=== PATIENT | female | born 1945 | race Caucasian/White ===

== ENCOUNTER 2020-08-27 09:51 | Outpatient (REF) | payer OTHER, SELFPAY ==
[2020-08-27 11:50] LABS: Anion Gap 11 (12-20); Blood Urea Nitrogen 27 mg/dL (9-16); Calcium 9.3 mg/dL (8.4-10.2); Carbon Dioxide 32 mmol/L (22-29); Chloride 103 mmol/L (96-108); Estimated Glomerular Filt Rate 42; Phosphorus 3.4 mg/dL (2.7-4.5); Potassium 5.3 mmol/l (3.3-5.1); Sodium 141 mmol/L (135-145)
[2020-08-27 11:54] LABS: Renal w Reflex Lab Use Only Order verified
== END 2020-08-27 09:52 | disposition home or self-care (01) ==
LOC: HO.LAB 09:51
PROVIDERS: PCP Family Medicine; Visit Provider Internal Medicine Nephrology
DX: I12.9 Hypertensive chronic kidney disease with stage 1 through stage 4 chronic kidney disease, or unspecified chronic kidney disease (principal); E11.22 Type 2 diabetes mellitus with diabetic chronic kidney disease; E11.29 Type 2 diabetes mellitus with other diabetic kidney complication; N18.30 Chronic kidney disease, stage 3 unspecified; D63.1 Anemia in chronic kidney disease; E78.5 Hyperlipidemia, unspecified
CPT/HCPCS: 80051; 82310; 82565; 84100; 84520

== ENCOUNTER 2020-09-05 13:40 | Outpatient (REF) | payer OTHER, SELFPAY ==
--- NOTE | 2020-09-05 | US_ITS ---
EXAMINATION: US VENOUS ULTRASOUND WITH DOPPLER LOWER EXTREMITY, LEFT CLINICAL INFORMATION: Left lower extremity pain and swelling. Assess for occult DVT COMPARISON: Bilateral leg venous ultrasound 08/14/2016 TECHNIQUE: Ultrasound of the deep veins is performed from the hip to the calf with compression sonography and color and pulse Doppler assessment. Spectral analysis with color-flow imaging is performed. FINDINGS: There is normal venous compression and respiratory variation and augmented flow. The visualized common femoral vein, superficial femoral vein, profunda femoral vein, popliteal vein, and the trifurcation region shows no evidence of deep venous thrombosis. No popliteal fossa cyst. There is a node left inguinal region with normal colleen architecture and short axis dimension only 0.9 cm. US/US venous duplex LE LT IMPRESSION: No DVT demonstrated in the left lower extremity.
== END 2020-09-05 13:41 | disposition home or self-care (01) ==
LOC: HO.HMGCX 13:40
PROVIDERS: PCP Family Medicine; Visit Provider Internal Medicine Nephrology
DX: E11.22 Type 2 diabetes mellitus with diabetic chronic kidney disease (principal); I12.9 Hypertensive chronic kidney disease with stage 1 through stage 4 chronic kidney disease, or unspecified chronic kidney disease; N18.30 Chronic kidney disease, stage 3 unspecified; D63.1 Anemia in chronic kidney disease; E11.29 Type 2 diabetes mellitus with other diabetic kidney complication; E87.5 Hyperkalemia; M79.605 Pain in left leg; M79.89 Other specified soft tissue disorders
CPT/HCPCS: 93971

== ENCOUNTER 2020-09-11 10:59 | Outpatient (REF) | payer OTHER, SELFPAY ==
--- NOTE | 2020-09-11 10:59 | CT_ITS ---
EXAMINATION: CT LUMBAR SPINE WITHOUT CONTRAST CLINICAL INFORMATION: Lumbago with sciatica. COMPARISON: None TECHNIQUE: 2 mm thin axial and reformatted 2 mm thin sagittal and coronal images of lumbar spine were obtained without contrast. This CT examination was performed using dose optimization techniques as appropriate, variously including the following: *Automated exposure control *Adjustment of mA and/or kV according to patient size (this includes techniques or standardized protocols for targeted exams where dose is matched to indication/reason for exam; i.e. extremities or head) *Use of iterative reconstruction technique DLP; 998 mGy-cm FINDINGS: On sagittal reconstructed images, the lumbar lordosis is maintained. There is loss of disc it virtually at every disc level with vacuum disc phenomena at L1-L2, L2-L3, L5-S1 disc levels with mild ventral spondylosis. At L1-L2 disc level, there is mild posterior spondylosis/bulge complex resulting in mild AP canal stenosis. The neural foramina are patent bilaterally. At L2-L3 disc level, there is posterior spondylosis/bulge complex with bilateral facet joint hypertrophy resulting in circumferential canal stenosis. There is mild bilateral narrowing of neural foramina. At L3-L4 disc level, there is mild posterior spondylosis without spinal stenosis. The neural foramina are mildly narrowed bilaterally from uncovertebral and facet joint hypertrophy. At L4-L5 disc level, there is severe loss of disc height with minimal disc bulge/spondylosis complex. There is partial right L5 laminectomy. There is bilateral L5-S1 facet joint arthropathy. Mild bilateral narrowing of neural foramina is noted. At L5-S1 disc level, there is a vacuum disc phenomena. There is minimal disc bulge without disc herniation or spinal canal stenosis. There is bilateral facet joint arthropathy with vacuum disc phenomena. There are endplate sclerosis seen at L2-L3 and L1-L2 disc levels. No lytic process seen. The paravertebral soft tissues are normal. CT/CT lumbar spine wo con IMPRESSION: Multilevel degenerative disc bulges and spondylosis with mild circumferential canal stenosis at L1-L2, L2-L3 and L5-S1 disc levels with mild canal stenosis. Mild spondylosis L3-L4 and L4-L5 disc levels without spinal canal stenosis. The neural foramina are narrowed bilaterally as described above. , There is no acute fracture seen.
== END 2020-09-11 11:00 | disposition home or self-care (01) ==
LOC: HO.CT 10:59
PROVIDERS: PCP Family Medicine; Visit Provider Family Medicine
DX: C54.1 Malignant neoplasm of endometrium (principal); M54.40 Lumbago with sciatica, unspecified side
CPT/HCPCS: 72131

== ENCOUNTER → 2020-10-29 09:51 | Outpatient (BNVA) | payer OTHER, SELFPAY | PROVIDERS: PCP Family Medicine; Referring Provider Family Medicine; Visit Provider Physician Assistant | DX: Z13.89 Encounter for screening for other disorder (principal) | CPT/HCPCS: Q3014 ==

== ENCOUNTER → 2021-06-14 13:57 | Outpatient (REF) | payer MEDICARE, SELFPAY ==
--- NOTE | 2021-06-14 14:03 | CA_ITS ---
Transthoracic Echocardiogram Patient (Last, First, Middle): Mary Fontenot, Gender: Female Date of : 1945 Age: 76 Procedure Date: 06/14/2021 Procedure Type: Transthoracic Echocardiogram Location: OP Height: 157.48 cm Weight: 100.7 kg BSA: 2.00 m2 Heart Rate: bpm BP: 124 / 70 mmHg Greenhouse Transplanter: Referring MD: Hazel Kilgore MD Symptoms: R06.02 SOB Study Quality: Fair ECG Rhythm: Sinus Findings Procedure Information Contrast agent, definity, is being given per protocol without apparent complications. Prior Study Comparison No prior study available for comparison. Measurements 2D Linear Measurements IVSd: 1.17 0.6-0.9/0.6-1.0 cm LVIDd: 3.80 3.9-5.3/4.2-5.9 cm LVIDd Index: 1.90 2.4-3.2/2.2-3.1 cm/m2 LVIDs: 2.42 2.0-3.6 cm LVPWd: 1.14 0.7-1.1 cm Ao Root: 2.80 2.1-3.5 cm LA Diam: 4.20 2.7-3.8/3.0-4.0 cm LAIDs Index: 2.10 1.5-2.3 cm/m2 LV Mass: 180.16 67-162/88-224 g LV Mass Index: 90.08 43-95/49-115 g/m2 LVOT Diam: 2.00 3.0+(-)1.3 cm Mitral Valve MV Pk E: 0.70 MV PK A: 0.94 MV Decel Time: 191.00 E/A: 0.70 E'Lateral: 9.25 E'Medial: 7.40 E/E' Med: 9.50 E/E' Lat: 7.60 PHT: 56.00 MVA PHT: 3.93 Decel [place]: 3.67 Aortic Valve AoV Pk Ford: 1.44 AoV Mn Ford: 0.92 AoV VTI: 0.35 AoV Pk Grad: 8.00 Aov Mn Grad: 4.00 ZAIRE Cont.VTI: 2.27 LVOT LVOT Pk Ford: 0.94 LVOT Mn Ford: 0.71 LVOT VTI: 0.25 LVOT Pk Grad: 4.00 LVOT Mn Grad: 2.00 LVOT Diam: 2.00 LVOT Area: 3.14 Diastolic Function MV Pk E: 0.70 MV Pk A: 0.94 E/A: 0.70 E'Medial: 7.40 E/E' Med: 9.50 E' Laterial: 9.25 E/E' Lat: 7.60 Tricuspid Valve TR Pk Ford: 2.02 TR Pk Grad: 16.00 RA Press: 3.00 RVSP: 19.00 Great Vessels Aorta Ao Root-2D: 2.80 2.0-3.7 cm Ao Asc: 3.20 2.1-3.4 cm Pulmonary Valve PV Pk Ford: 1.13 Peak PV Grad: 5.00 Updated in Other Vendor System with Status of Preliminary
== END ==
LOC: HO.CARD 13:57
PROVIDERS: Visit Provider Family Medicine
DX: R06.02 Shortness of breath (principal)
CPT/HCPCS: 93306; Q9957

== ENCOUNTER → 2021-07-16 08:36 | Outpatient (BNVA) | payer MEDICARE, SELFPAY | PROVIDERS: PCP Family Medicine; Referring Provider Family Medicine; Visit Provider Psychiatry & Neurology Neurology | DX: R06.83 Snoring (principal); G47.10 Hypersomnia, unspecified | CPT/HCPCS: 99202 ==

== ENCOUNTER → 2021-07-31 11:22 | Outpatient (REF) | payer MEDICARE, SELFPAY | LOC: HO.SL 11:22 | PROVIDERS: PCP Family Medicine; Visit Provider Psychiatry & Neurology Neurology | DX: Z13.89 Encounter for screening for other disorder (principal) ==

== ENCOUNTER 2021-08-02 14:42 | Outpatient (REF) | payer MEDICARE, SELFPAY ==
[2021-08-02 15:17] LABS: MANUAL DIFF FLAG NO
[2021-08-02 15:21] LABS: Basophils Percent Auto 0.1 % (0-2); Eosinophils Absolute Auto 0.2 X10*3/uL (0.0-0.4); Eosinophils Percent Auto 2.2 % (0-4); Hematocrit 35.9 % (37-47); Hemoglobin 10.4 g/dl (12.0-16.0); Imm Gran Abs Auto 0.03 X10*3/uL (0.00-0.03); Imm Gran Pct Auto 0.4 % (0.0-0.4); Lymphocytes Absolute Auto 1.7 X10*3/uL (1.2-4.9); Lymphocytes Percent Auto 22.8 % (20-40); Mean Corpuscular Hemoglobin 23.6 pg (27.0-33.0); Mean Corpuscular Volume 81.6 fL (80-98); Monocytes Absolute Auto 0.7 X10*3/uL (0.1-1.2); Monocytes Percent Auto 10.1 % (2-11); Neutrophils Absolute Auto 4.7 X10*3/uL (2.0-8.3); Neutrophils Percent Auto 64.4 % (45-73); Platelet Count 181 X10*3/uL (160-400); White Blood Count 7.3 X10*3/uL (4.8-10.8)
[2021-08-02 15:43] LABS: Albumin Level 3.9 g/dL (3.5-5.0); Anion Gap 13 (12-20); Blood Urea Nitrogen 37 mg/dL (9-16); Calcium 9.7 mg/dL (8.4-10.2); Carbon Dioxide 30 mmol/L (22-29); Chloride 102 mmol/L (96-108); Estimated Glomerular Filt Rate 39; Magnesium 1.5 mg/dL (1.6-2.6); Phosphorus 3.1 mg/dL (2.7-4.5); Potassium 5.2 mmol/L (3.3-5.1); Sodium 140 mmol/L (135-145)
[2021-08-02 15:49] LABS: Appearance Urine HAZY; Color Urine YELLOW; Glucose Urine UA 500 MG/DL (NEG); Leukocyte Esterase Urine 1+ (NEG); Nitrite Urine NEG (NEG); PH 5.5 (5.0-8.0); Specific Gravity - Urine <= 1.005 (1.005-1.025); Urine Blood 1+ (NEG); Urine Ketones NEG (NEG); Urine Protein NEG (NEG-TRACE)
[2021-08-02 16:02] LABS: Bacteria Urine 1+ /LPF; Squamous Epithelial Cell Urine 1+ /LPF
[2021-08-02 16:03] LABS: RBC Urine 0-2 /HPF (0)
[2021-08-02 16:04] LABS: Vitamin D 25-OH Total 43.2 ng/mL (>30)
[2021-08-02 16:10] LABS: Microalbum/Creatinine Ratio Ur 72.3 ug/mg cr
[2021-08-06 08:47] LABS: Calcium (PTHI) 9.8 mg/dL (8.6-10.4); PTHI 36 pg/mL (14-64)
== END 2021-08-02 14:43 | disposition home or self-care (01) ==
LOC: HO.LAB 14:42
PROVIDERS: PCP Family Medicine; Visit Provider Internal Medicine Nephrology
DX: N18.32 Chronic kidney disease, stage 3b (principal); D63.1 Anemia in chronic kidney disease; E11.21 Type 2 diabetes mellitus with diabetic nephropathy; E11.22 Type 2 diabetes mellitus with diabetic chronic kidney disease
CPT/HCPCS: 36415; 80051; 81001; 82040; 82043; 82306; 82310; 82565; 83735; 83970; 84100; 84520; 85025; 87086

== ENCOUNTER → 2021-08-14 09:58 | Outpatient (REF) | payer MEDICARE, SELFPAY | LOC: HO.SL 09:58 | PROVIDERS: PCP Family Medicine; Visit Provider Psychiatry & Neurology Neurology | DX: Z13.89 Encounter for screening for other disorder (principal) ==

== ENCOUNTER 2021-09-12 12:07 | Outpatient (REF) | payer MEDICARE, SELFPAY ==
--- NOTE | ~2021-09-12 | MM_ITS ---
EXAMINATION: MM SCREENING DIGITAL BREAST TOMOSYNTHESIS, BILATERAL CLINICAL INFORMATION: Screening. Asymptomatic. The lifetime risk of breast cancer based on the Tyrer-Cuzick Model is 1.8%. COMPARISON: Mammography: November 30, 2017 and studies dating back to February 22, 2010 TECHNIQUE: Digital breast tomosynthesis is performed in both the craniocaudal and mediolateral oblique views along with computer-aided detection (CAD). Synthesized 2D images are generated from the tomosynthesis. FINDINGS: The breasts are almost entirely fatty (ACR BI-RADS breast composition Category a). There are no significant masses, abnormal calcifications, or other abnormalities. MM/MM tomosynthesis screening BI IMPRESSION: There are no significant changes from prior study. ASSESSMENT: BI-RADS 1: Negative RECOMMENDATION: Routine annual mammography screening. This patient's information was entered into a reminder system with a target due date for their next mammogram.
== END 2021-09-12 12:08 | disposition home or self-care (01) ==
LOC: HO.MAMMO 12:07
PROVIDERS: Visit Provider Family Medicine
DX: Z12.31 Encounter for screening mammogram for malignant neoplasm of breast (principal)
CPT/HCPCS: 77063; 77067

== ENCOUNTER 2021-12-02 09:38 | Outpatient (REF) | payer MEDICARE, SELFPAY ==
[2021-12-02 10:00] LABS: MANUAL DIFF FLAG NO
[2021-12-02 10:21] LABS: Basophils Percent Auto 0.3 % (0-2); Eosinophils Absolute Auto 0.2 X10*3/uL (0.0-0.4); Eosinophils Percent Auto 3.2 % (0-4); Hematocrit 37.5 % (37.0-47.0); Hemoglobin 10.7 g/dl (12.0-16.0); Imm Gran Abs Auto 0.02 X10*3/uL (0.00-0.03); Imm Gran Pct Auto 0.3 % (0.0-0.4); Lymphocytes Absolute Auto 1.4 X10*3/uL (1.2-4.9); Lymphocytes Percent Auto 22.6 % (20-40); Mean Corpuscular HGB Conc 28.5 g/dl (31.0-35.0); Mean Corpuscular Hemoglobin 23.2 pg (27.0-33.0); Mean Corpuscular Volume 81.2 fL (80.0-98.0); Mean Platelet Volume 11.3 fL (9.4-12.3); Monocytes Absolute Auto 0.6 X10*3/uL (0.1-1.2); Monocytes Percent Auto 9.8 % (2-11); Neutrophils Absolute Auto 3.8 x10*3/uL (2.0-8.3); Neutrophils Percent Auto 63.8 % (45-73); Platelet Count 201 X10*3/uL (160-400); Red Blood Count 4.62 X10*6/uL (4.20-5.50); Red Cell Distribution Width 15.8 % (11.0-16.0)
[2021-12-02 10:39] LABS: Appearance Urine HAZY; Color Urine STRAW; Glucose Urine UA >=1000 MG/DL (NEG); Leukocyte Esterase Urine 1+ (NEG); Nitrite Urine NEG (NEG); Urine Blood 1+ (NEG); Urine Ketones NEG (NEG); Urine Protein NEG (NEG-TRACE)
[2021-12-02 11:07] LABS: Creatinine Urine 57.49 mg/dL; Microalbum/Creatinine Ratio Ur 41.7 ug/mg cr; Total Protein Urine Random < 7 mg/dL (<12)
[2021-12-02 11:10] LABS: Albumin Level 3.8 g/dL (3.5-5.0); Anion Gap 12 (12-20); Blood Urea Nitrogen 25 mg/dL (9-16); Calcium 10.2 mg/dL (8.4-10.2); Carbon Dioxide 32 mmol/L (22-29); Chloride 103 mmol/L (96-108); Estimated Glomerular Filt Rate 40; Iron 69 mcg/dL (30-160); Magnesium 2.1 mg/dL (1.6-2.6); Percent Iron Saturation 35 % (15-50); Potassium 5.1 mmol/L (3.3-5.1); Sodium 142 mmol/L (135-145); Total Iron Binding Capacity 195 mcg/dL (228-428); Unsaturated Iron Binding 126 ug/dL
[2021-12-02 11:18] LABS: Vitamin D 25-OH Total 37.4 ng/mL (>30)
[2021-12-02 11:54] LABS: WBC Urine 30-49 /HPF (0-4)
[2021-12-03 14:21] LABS: Calcium (PTHI) 9.8 mg/dL (8.6-10.4); PTHI 43 pg/mL (14-64)
== END 2021-12-02 09:39 | disposition home or self-care (01) ==
LOC: HO.LAB 09:38
PROVIDERS: PCP Family Medicine; Visit Provider Internal Medicine Nephrology
DX: N18.32 Chronic kidney disease, stage 3b (principal); D63.1 Anemia in chronic kidney disease; N25.0 Renal osteodystrophy; E11.21 Type 2 diabetes mellitus with diabetic nephropathy; E87.5 Hyperkalemia
CPT/HCPCS: 36415; 80051; 81001; 81003; 82040; 82043; 82306; 82310; 82565; 83540; 83735; 83970; 84156; 84520; 85025; 87086

== ENCOUNTER → 2022-02-25 19:30 | Outpatient (REF) | payer OTHER, SELFPAY | LOC: HO.SL 19:30 | PROVIDERS: Visit Provider Psychiatry & Neurology Neurology | DX: G47.10 Hypersomnia, unspecified (principal) | CPT/HCPCS: 95810 ==

== ENCOUNTER → 2022-03-04 09:31 | Outpatient (BNVA) | payer MEDICARE, SELFPAY | PROVIDERS: PCP Family Medicine; Referring Provider Family Medicine; Visit Provider Psychiatry & Neurology Neurology | DX: G47.33 Obstructive sleep apnea (adult) (pediatric) (principal); R06.83 Snoring | CPT/HCPCS: 99212 ==

== ENCOUNTER → 2022-05-13 10:55 | Outpatient (BNVA) | payer MEDICARE, SELFPAY | PROVIDERS: PCP Family Medicine; Visit Provider Nurse Practitioner Family | DX: G47.33 Obstructive sleep apnea (adult) (pediatric) (principal); R06.83 Snoring; G47.10 Hypersomnia, unspecified | CPT/HCPCS: 99211 ==

== ENCOUNTER 2022-05-22 11:00 | Outpatient (RCR) | payer MEDICARE, SELFPAY ==
--- NOTE | 2022-04-22 11:47 | MHC.PT.EP ---
[facility] [place] Office [place] Office [place] Office [address] [phone] F: [phone] F: [phone] F: [phone] F: [phone] Physical Therapy Plan of Care Date of Evaluation: Date of Surgery: n/a Diagnosis: Peripheral neuropathy Gait and LE strengthening Assessment: Pt is a pleasant 76yo F who presents to PT with diagnosis of peripheral neuropathy. Pts goals are to improve her LE strength, balance and gait. Pt presents today with current impairments in pain, decreased LE strength, impaired gait, decreased balance. She is limited functionally by prolonged standing, walking on even/uneven surfaces, and stair navigation. She is a good candidate for skilled PT in order to address current impairments, maximize function, and to decrease risk of falls. She will be seen 2x/week for 4 weeks and will be reassessed at that time. Frequency and Duration: The patient will be seen 2x/week for 4 weeks Short Term Goals: Pt will be I with HEP to promote self management of symptoms Pt will improve B quad strength by 1/2 grade B Pet House Sitter Goals: Pt will tolerate ambulation on even and uneven surfaces with LRAD > 20 min Pt will tolerate prolonged standing > 20 min to assist with household tasks Treatment Plan: Modalities to reduce pain, spasms and effusion. Manual therapy to restore motion and function. Therapeutic exercise to improve strength and flexibility. Neuromuscular re-education for posture and balance. Therapeutic activities to return to functional activities of daily living. Electronically signed by: Trisha Eugene, PT, DPT Please sign and return to therapist. Thank you for your referral.
--- NOTE | 2022-05-22 13:41 | MHC.PT.DC ---
[facility] [place] Office [place] Office [place] Office [address]an Russell [address] [phone] F: [phone] F: [phone] F: [phone] F: [phone] Physical Therapy Discharge Report Diagnosis: Peripheral neuropathy Gait and LE strengthening Date of Surgery: n/a Date of Evaluation: 04/22/22 Date of Discharge: 05/22/22 Treatments to Date: 8 Cancellations to Date: No Shows to Date: Discharge Status: Achieved Goals Improved Function Independent with HEP Discharge Summary: Pt has made good progress since SOC. She has improved her LE strength and endurance. She has met her STGs and made good progress toward her LTGs. She reports she is able to walk throughout grocery store with cart where she previously was using a scooter. She continues to be limited with prolonged standing 2* chronic low back pain. Pt is I with HEP. Pt is being D/C from skilled PT. Provided pt with printed, updated copy of HEP and RTB and pt verbalized understanding. Pt reports no further questions or concerns for PT at this time. Electronically signed by: Trisha Eugene, PT, DPT Please sign and return to therapist. Thank you for your referral.
== END 2022-05-22 13:41 | disposition home or self-care (01) ==
LOC: HO.PT 11:00
PROVIDERS: PCP Family Medicine; Visit Provider Psychiatry & Neurology Neurology
DX: G62.9 Polyneuropathy, unspecified (principal)
CPT/HCPCS: 97110; 97112; 97162; 97530

== ENCOUNTER 2022-08-29 10:12 | Outpatient (REF) | payer MEDICARE, SELFPAY ==
[2022-08-29 10:36] LABS: MANUAL DIFF FLAG NO
[2022-08-29 11:43] LABS: Basophils Percent Auto 0.2 % (0-2); Eosinophils Absolute Auto 0.2 X10*3/uL (0.0-0.4); Eosinophils Percent Auto 2.9 % (0-4); Hematocrit 39.5 % (37.0-47.0); Hemoglobin 11.5 g/dl (12.0-16.0); Imm Gran Abs Auto 0.02 X10*3/uL (0.00-0.03); Imm Gran Pct Auto 0.3 % (0.0-0.4); Lymphocytes Absolute Auto 1.3 X10*3/uL (1.2-4.9); Lymphocytes Percent Auto 22.3 % (20-40); Mean Corpuscular HGB Conc 29.1 g/dl (31.0-35.0); Mean Corpuscular Volume 78.8 fL (80.0-98.0); Mean Platelet Volume 11.1 fL (9.4-12.3); Monocytes Absolute Auto 0.6 X10*3/uL (0.1-1.2); Neutrophils Absolute Auto 3.8 x10*3/uL (2.0-8.3); Neutrophils Percent Auto 64.3 % (45-73); Platelet Count 166 X10*3/uL (160-400); Red Blood Count 5.01 X10*6/uL (4.20-5.50); Red Cell Distribution Width 15.3 % (11.0-16.0); White Blood Count 5.9 X10*3/uL (4.8-10.8)
[2022-08-29 11:55] LABS: Appearance Urine Clear; Color Urine Yellow; Glucose Urine UA >=1000 mg/dL (Negative); Leukocyte Esterase Urine Negative (Negative); Nitrite Urine Negative (Negative); Specific Gravity - Urine 1.025 (1.005-1.025); UMIC TRIGGER UA YES; Urine Blood Negative (Negative); Urine Ketones Negative (Negative); Urine Protein Negative (Neg-Trace)
[2022-08-29 12:02] LABS: Bacteria Urine None Seen (None Seen); Hyaline Casts Urine 0-2 /LPF (0-2)
[2022-08-29 12:31] LABS: Albumin Level 3.8 g/dL (3.5-5.0); Anion Gap 16 (12-20); Blood Urea Nitrogen 24 mg/dL (9-16); Calcium 9.8 mg/dL (8.4-10.2); Carbon Dioxide 30 mmol/L (22-29); Chloride 101 mmol/L (96-108); Estimated Glomerular Filt Rate 44; Magnesium 2.1 mg/dL (1.6-2.6); Phosphorus 3.9 mg/dL (2.7-4.5); Potassium 5.3 mmol/L (3.3-5.1); Sodium 142 mmol/L (135-145); Vitamin D 25-OH Total 39.8 ng/mL (>30)
[2022-08-29 12:42] LABS: Creatinine Urine 65.92 mg/dL; Microalbum/Creatinine Ratio Ur 12.1 ug/mg cr; Total Protein Urine Random < 7 mg/dL (<12)
[2022-08-31 13:07] LABS: Calcium (PTHI) 9.7 mg/dL (8.6-10.4); PTHI 49 pg/mL (16-77)
== END 2022-08-29 10:13 | disposition home or self-care (01) ==
LOC: HO.LAB 10:12
PROVIDERS: PCP Family Medicine; Visit Provider Internal Medicine Nephrology
DX: E11.21 Type 2 diabetes mellitus with diabetic nephropathy (principal); E11.22 Type 2 diabetes mellitus with diabetic chronic kidney disease; N25.0 Renal osteodystrophy; I12.9 Hypertensive chronic kidney disease with stage 1 through stage 4 chronic kidney disease, or unspecified chronic kidney disease; N18.32 Chronic kidney disease, stage 3b
CPT/HCPCS: 36415; 80051; 81001; 82040; 82043; 82306; 82310; 82565; 83735; 83970; 84100; 84156; 84520; 85025; 87086

== ENCOUNTER 2022-09-18 11:45 | Outpatient (REF) | payer MEDICARE, SELFPAY ==
--- NOTE | ~2022-09-18 | MM_ITS ---
EXAMINATION: MM SCREENING DIGITAL BREAST TOMOSYNTHESIS, BILATERAL CLINICAL INFORMATION: Screening. Asymptomatic. COMPARISON: Mammography: September 12, 2021 and studies dating back to April 17, 2014 TECHNIQUE: Digital breast tomosynthesis is performed in both the craniocaudal and mediolateral oblique views along with computer-aided detection (CAD). Synthesized 2D images are generated from the tomosynthesis. FINDINGS: The breasts are almost entirely fatty (ACR BI-RADS breast composition Category a). There are no significant masses, abnormal calcifications, or other abnormalities. MM/MM tomosynthesis screening BI IMPRESSION: No significant changes from prior exam. ASSESSMENT: BI-RADS 1: Negative RECOMMENDATION: Routine annual mammography screening. This patient's information was entered into a reminder system with a target due date for their next mammogram.
== END 2022-09-18 11:46 | disposition home or self-care (01) ==
LOC: HO.MAMMO 11:45
PROVIDERS: PCP Family Medicine; Visit Provider Family Medicine
DX: Z12.31 Encounter for screening mammogram for malignant neoplasm of breast (principal)
CPT/HCPCS: 77063; 77067

== ENCOUNTER 2023-05-14 09:56 | Outpatient (REF) | payer MEDICARE, SELFPAY | END 2023-05-14 09:57 | disposition home or self-care (01) | LOC: HO.LAB 09:56 | PROVIDERS: PCP Family Medicine; Visit Provider Internal Medicine Nephrology | DX: I12.9 Hypertensive chronic kidney disease with stage 1 through stage 4 chronic kidney disease, or unspecified chronic kidney disease (principal); E11.22 Type 2 diabetes mellitus with diabetic chronic kidney disease; N18.32 Chronic kidney disease, stage 3b; E11.21 Type 2 diabetes mellitus with diabetic nephropathy; N25.0 Renal osteodystrophy; R82.90 Unspecified abnormal findings in urine | CPT/HCPCS: 36415; 80051; 81001; 82040; 82043; 82306; 82310; 82565; 83735; 83970; 84100; 84156; 84520; 85025; 87086 ==

== ENCOUNTER 2023-06-02 10:49 | Outpatient (AMB) | payer MEDICARE, SELFPAY ==
--- NOTE | 2023-06-02 10:53 | A.OFFVIS_ITS ---
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 Patient reports ongoing numbness for many year and its gotten worse in the past year. She states her attending psychiatrist is weak and doesn't have a lot of strength to lift a coffee cup. Patient reports having stiffness in her fingers. 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 The patient reports ongoing numbness for many years, which has increased in the last year. She states her attending psychiatrist is weak. She claims she does not have the strength to lift a coffee cup. She confirms stiffness in the digits. She applies ice to the hand to help with stiffness. She confirms numbness in the bilateral thumb, index, and middle digits. Patient reports Dr. Noe had an EMG performed. She states she was told she has carpal tunnel syndrome, bilateral, with the right worse then the left. [facility] Medical History Asthma Chronic anemia Dyslipidemia Eye disorder HTN (hypertension) Family History Father No problems noted. Mother No problems noted. Social History (Updated 06/02/23 @ 11:03 by Davey Fontenot) Household Members: Family Alcohol intake: never Patient Tobacco Use Status: Former Tobacco user Current occupational status: retired Current occupation: right hand dominant Review of Systems Const All systems reviewed & are unremarkable except as noted in HPI and below Physical Exam Vital Signs: BMI result Body Mass Index 35.8 Const General: cooperative, healthy appearing, comfortable, no acute distress, well developed and alert Orientation/consciousness: patient oriented x3 HEENT Head: Yes normal to inspection, Yes normocephalic and Yes atraumatic Eyes General: appearance normal, both eyes and all related structures Resp Effort & Inspection: normal respiratory effort and able to speak in complete sentences Cardio Rate: regular rate Peripheral pulses: Peripheral pulses 2+ throughout GI Palpation (GI): Soft to palpation Skin Lesions: no lesions Rashes: no rashes Neuro General: patient oriented x3 Extrem Other: Left hand: Normal to inspection. No ecchymosis, erythema, or edema. Able to perform full finger flexion, extension, abduction, adduction, finger cross, okay sign, and thumbs up without deficit. Able to make a closed fist. Numbness and tingling in the left thumb, index, and middle digits. Capillary refill is brisk. Radial pulse intact. Right hand: Normal to inspection. No ecchymosis, erythema, or edema. Able to perform full finger flexion, extension, abduction, adduction and thumbs up without deficit. Finger cross and okay signs on the right with difficulty. Okay sign is flat. Able to make a closed fist. Numbness and tingling in the left thumb, index, and middle digits. Capillary refill is brisk. Radial pulse intact. Assessment & Plan Assessment & Plan (1) Left carpal tunnel syndrome: Code(s): G56.02 - Carpal tunnel syndrome, left upper limb (2) Right carpal tunnel syndrome: Code(s): G56.01 - Carpal tunnel syndrome, right upper limb Plan Ms. Fontenot is an 78-year-old right hand dominant female who presents in the office today, as a new patient, for an evaluation of bilateral hand pain. The patient reports ongoing numbness for many years, which has increased in the last year. She states her attending psychiatrist is weak. She claims she does not have the strength to lift a coffee cup. She confirms stiffness in the digits. She applies ice to the hand to help with stiffness. She confirms numbness in the bilateral thumb, index, and middle digits. Patient reports Dr. Noe had an EMG performed. She states she was told she has carpal tunnel syndrome, bilateral, with the right worse then the left. I discussed the role of surgical intervention of a right hand carpal tunnel release. The office will work to obtain the results of the EMG study from Dr. Noe?s office. Follow up will be with Dr. Doherty for further evaluation and treatment, or sooner if needed Patient Instructions: Scribed for Natalia Troy PA-C by colton Ngo scribe, on 06/02/2023 at 10:51 am, EST. Your attestation Coding Level of Care Code New Pt Level 4 (58760) Diagnoses Left carpal tunnel syndrome G56.02 Right carpal tunnel syndrome G56.01
[2023-06-02 10:59] VITALS: BMI 35.8
== END 2023-06-02 11:44 | disposition home or self-care (01) ==
PROVIDERS: PCP Family Medicine; Visit Provider Physician Assistant
DX: G56.02 Carpal tunnel syndrome, left upper limb (principal); G56.01 Carpal tunnel syndrome, right upper limb
CPT/HCPCS: 99203

== ENCOUNTER → 2023-06-02 10:49 | Outpatient (BNVA) | payer MEDICARE, SELFPAY | PROVIDERS: PCP Family Medicine; Visit Provider Physician Assistant ==

== ENCOUNTER 2023-06-10 10:29 | Outpatient (REF) | payer MEDICARE, SELFPAY ==
[2023-06-10 13:53] LABS: Alanine Aminotransferase 25 U/L (0-31); Albumin Level 3.8 g/dL (3.5-5.0); Alkaline Phosphatase 63 U/L (39-117); Amylase 49 U/L (28-100); Anion Gap 15 (12-20); Aspartate Amino Transferase 19 U/L (5-31); Bilirubin Total 0.3 mg/dL (0.0-1.0); Blood Urea Nitrogen 20 mg/dL (9-16); C Reactive Protein 0.76 mg/dL (< or = 0.50); Calcium 10.3 mg/dL (8.4-10.2); Carbon Dioxide 27 mmol/L (22-29); Chloride 104 mmol/L (96-108); Estimated Glomerular Filt Rate 48; Glucose Random 174 mg/dL (60-115); Lipase 7 U/L (8-78); Potassium 4.4 mmol/L (3.3-5.1); Sodium 142 mmol/L (135-145); Total Protein 6.9 g/dL (6.5-8.0)
== END 2023-06-10 10:30 | disposition home or self-care (01) ==
LOC: HO.HHCL 10:29
PROVIDERS: Visit Provider Emergency Medicine
DX: R19.7 Diarrhea, unspecified (principal)
CPT/HCPCS: 36415; 80053; 82150; 83690; 86140

== ENCOUNTER 2023-06-15 18:00 | Outpatient (REF) | payer MEDICARE, SELFPAY ==
[2023-06-16 13:11] LABS: Adenovirus F 40/41 Not Detected (Not Detect.); Astrovirus Not Detected (Not Detect.); Campylobacter Not Detected (Not Detect.); Cryptosporidium Not Detected (Not Detect.); Cyclospora cayetanensis Not Detected (Not Detect.); E. coli EAEC Not Detected (Not Detect.); E. coli EPEC Not Detected (Not Detect.); E. coli ETEC Not Detected (Not Detect.); E. coli STEC Not Detected (Not Detect.); Entamoeba histolytica Not Detected (Not Detect.); Giardia lamblia Not Detected (Not Detect.); Norovirus GI/GII Not Detected (Not Detect.); Plesiomonas shigelloides Not Detected (Not Detect.); Rotavirus A Not Detected (Not Detect.); Salmonella Not Detected (Not Detect.); Sapovirus Not Detected (Not Detect.); Shigella sp./EIEC Not Detected (Not Detect.); Vibrio Not Detected (Not Detect.); Vibrio Cholerae Not Detected (Not Detect.); Yersinia enterocolitica Not Detected (Not Detect.)
== END 2023-06-15 18:01 | disposition home or self-care (01) ==
LOC: HO.HHCLNP 18:00
PROVIDERS: Visit Provider Emergency Medicine
DX: R19.7 Diarrhea, unspecified (principal)
CPT/HCPCS: 87177; 87209; 87507

== ENCOUNTER 2023-07-07 08:39 | Outpatient (AMB) | payer MEDICARE, SELFPAY ==
[2023-07-07 08:54] VITALS: BMI 35.8
--- NOTE | 2023-07-07 08:54 | A.OFFVIS_ITS ---
Intake Vital Signs 07/07/23 08:54 Height 5 ft 2 in Weight 196 lb BMI 35.8 Intake Visit Reasons: OV- Pre op consult -B/L CTS Intake Note: Mary 78 yr old right hand dominant female presents today for her EMG review and to discuss surgery options. Last seen with Barry Troy on 06/02/23. Patient would like to move forward with surgery on her right hand first. Allergies No Known Allergies Allergy (Mild, Verified 07/07/23 08:56) NONE HPI OV- Pre op consult -B/L CTS HPI Details Mary is an 78 year old right hand dominant woman who presents for a NCS review of her bilateral hand numbness. She is seen today with her daughter. She complains of numbness in the median nerve distribution bilaterally, R>L. She has had numbness for many years but this has worsened in the last year. 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 She denies any small finger numbness. [facility] Medical History Asthma Chronic anemia Dyslipidemia Eye disorder HTN (hypertension) Family History Father No problems noted. Mother No problems noted. Social History Household Members: Family Alcohol intake: never Patient Tobacco Use Status: Former Tobacco user Current occupational status: retired Current occupation: right hand dominant Review of Systems Const All systems reviewed & are unremarkable except as noted in HPI and below Physical Exam Vital Signs: BMI result Body Mass Index 35.8 Const General: no acute distress and alert Orientation/consciousness: patient oriented x3 Neuro General: patient oriented x3 Extrem Other: Evaluation of Bilateral Upper Extremity: The patient is alert, oriented, and in no acute distress Neuro: Dense numbness in the median nerve distribution of the right hand, normal sensation in the median nerve distribution of the left hand today. Normal sensation in the ulnar nerve distribution bilaterally With thenar atrophy and no APB muscle belly firing on the right No thenar wasting and good APB muscle belly firing on the left Good finger cross bilaterally Vascular: Cap refill brisk ROM: She can make a fist and extend all her digits Nerve Conduction Study: Impression: Severe end stage right carpal tunnel Moderately severe left carpal tunnel Study unchanges compared to previous NCS from 2019 Normal EMG of the right C-T1 muscles except for APB muscles with no activity Please see report for additional information Dr. Fam 04/21/23 Psych Appearance: grossly normal Affect: normal affect Attitude: cooperative Assessment & Plan Assessment & Plan (1) Right carpal tunnel syndrome: Code(s): G56.01 - Carpal tunnel syndrome, right upper limb (2) Left carpal tunnel syndrome: Code(s): G56.02 - Carpal tunnel syndrome, left upper limb Plan Assessment & Plan: 1. Right Carpal tunnel syndrome, severe end-stage With dense numbness, thenar atrophy, and no APB muscle belly firing 2. Left Carpal tunnel syndrome, moderate-severe Symptoms intermittent, but daily, worse at night I educated her about this condition I discussed operative and non-operative treatment options I am recommending surgery for both hands The patient would like to proceed with surgery, beginning with her left hand She will follow up to discuss treatment for her right hand when she has recovered from surgery The risks and benefits of operative treatment were discussed with the patient and the patient wishes to proceed with surgery. These risks include, but are not limited to risk of damage to blood vessels, nerves, tendons, infection, recurrence, incomplete relief of preoperative symptoms, persistent pain, possible need for further surgery and the risks associated with regional blocks and anesthesia. The plan is to take the patient to the operating room sometime in the next few weeks for the following procedures: 1. Left carpal tunnel release, under local All of the preoperative paperwork including the consent was filled out today. All the patient's questions were answered. The patient understands that they will be contacted by our powder mill operator soon to schedule this procedure She denies blood thinners, asthma, heart, lung, kidney issues She is a Diabetic, her most recent HgA1c was 8.0% Scribed for Irma Doherty MD by Wayne Holland, medical claims representative, on 07/07/23 at 9:10 AM, EST. Coding Level of Care Code New Pt Level 4 (93536) Diagnoses Right carpal tunnel syndrome G56.01 Left carpal tunnel syndrome G56.02
== END 2023-07-07 09:17 | disposition home or self-care (01) ==
PROVIDERS: PCP Family Medicine; Visit Provider Orthopaedic Surgery
DX: G56.01 Carpal tunnel syndrome, right upper limb (principal); G56.02 Carpal tunnel syndrome, left upper limb
CPT/HCPCS: 99214

== ENCOUNTER → 2023-07-07 08:39 | Outpatient (BNVA) | payer MEDICARE, SELFPAY | PROVIDERS: PCP Family Medicine; Visit Provider Orthopaedic Surgery ==

== ENCOUNTER 2023-08-13 08:14 | Outpatient (REF) | payer MEDICARE, SELFPAY | END 2023-08-13 08:15 | disposition home or self-care (01) | LOC: HO.HHCL 08:14 | PROVIDERS: Visit Provider Family Medicine | DX: E11.69 Type 2 diabetes mellitus with other specified complication (principal); Z79.4 Long term (current) use of insulin | CPT/HCPCS: 36415; 80048; 80061; 80076; 82043; 82570 ==

== ENCOUNTER 2023-10-15 10:24 | Outpatient (REF) | payer MEDICARE, SELFPAY ==
--- NOTE | ~2023-10-15 | MM_ITS ---
EXAMINATION: BONE DENSITOMETRY CLINICAL INDICATION: Osteopenia of unspecified location. COMPARISON: Previous BD dated 04/24/2015 and baseline BD dated 11/13/2006. TECHNIQUE: Using a [employer] DXA System (software version: 13.1) manufactured by [employer], dual-energy x-ray absorptiometry was performed of the lumbar spine and left hip. The images are of good technical quality. Summary results are attached. FINDINGS: LEFT FEMUR, NECK: Current: BMD 1.107 g/cm2, Z-score 2.1, T-score 0.5, normal. Prior: BMD 1.199 g/cm2. Baseline: BMD 1.199 g/cm2. LEFT FEMUR, TOTAL: Current: BMD 1.283 g/cm2, Z-score 3.6, T-score 2.2, normal, 1.5% decrease from previous, 1.5% decrease from baseline (<5% change is not significant). Prior: BMD 1.303 g/cm2. Baseline: BMD 1.303 g/cm2. AP SPINE L1-L4 (excluding L3): The data of L1-L4 has been changed to exclude the L3 vertebral body, because degenerative sclerosis at this level may cause overestimation of lumbar spine density. Current: BMD 1.670 g/cm2, Z-score 5.2, T-score 4.2, normal, 5.2% increase from previous, 26.3% increase from baseline (<5% change is not significant). Prior: BMD 1.588 g/cm2. Baseline: BMD 1.322 g/cm2. IDENTIFIED RISK FACTORS: Kidney disease, anticonvulsant, menopause, hysterectomy, bilateral oophorectomy. HISTORY OF FRACTURE: None listed. MEDICATIONS: Calcium supplements or multivitamin, vitamin D. MM/XR DEXA axial skeleton IMPRESSION: 1. DIAGNOSIS: Normal bone density based on the lowest T-score value of 0.5 in the femoral neck applying World Health Organization criteria. 2. 10-YEAR FRACTURE RISK PREDICTION, FRAX: According to the guidelines, FRAX calculation should only be performed on patients in the osteopenia bone density category. Therefore, FRAX was not performed on this patient. 3. Treatment Recommendations: NOF guidelines recommend consideration for treatment in postmenopausal women and men age 50 and older presenting with the following: -A hip or vertebral (clinical or morphometric) fracture. -T-score less than or equal to -2.5 at the femoral neck or spine after appropriate evaluation to exclude secondary causes. -Low bone mass at the hip or spine and a 10-year fracture probability by FRAX of greater than or equal to 3% for hip fracture or greater than or equal to 20% for major osteoporotic fracture based on the [place] adapted WHO algorithm. 4. Other Recommendations: All treatment decisions require clinical judgment and consideration of individual patient factors, including patient preferences, comorbidities, previous drug use, risk factors not captured in the FRAX model (e.g. frailty, falls, vitamin D deficiency, increased bone turnover, interval significant decline in bone density) and possible under or overestimation of fracture risk by FRAX. FUTURE SCAN RECOMMENDATION: People with diagnosed cases of osteoporosis or at high risk for fracture should have regular bone mineral density tests. For patients eligible for Medicare, routine testing is allowed once every 2 years. The testing frequency can be increased to one year for patients who have rapidly progressing disease, those who are receiving or discontinuing medical therapy to restore bone mass, or have additional risk factors.
--- NOTE | ~2023-10-15 | MM_ITS ---
EXAMINATION: MM SCREENING DIGITAL BREAST TOMOSYNTHESIS, BILATERAL CLINICAL INFORMATION: Screening. Asymptomatic. COMPARISON: Mammography: 09/18/2022, 09/12/2021, and studies dating back to April 17, 2014 TECHNIQUE: Digital breast tomosynthesis is performed in both the craniocaudal and mediolateral oblique views along with computer-aided detection (CAD). Synthesized 2D images are generated from the tomosynthesis. FINDINGS: The breasts are almost entirely fatty (ACR BI-RADS breast composition Category a). There are vascular calcifications bilaterally. There are no suspicious masses, suspicious grouped calcifications, or areas of architectural distortion in either breast. The parenchymal pattern is stable from prior exams. No skin or axillary changes. MM/MM tomosynthesis screening BI IMPRESSION: No mammographic evidence of malignancy. ASSESSMENT: BI-RADS BI-RADS 2 - Benign Findings RECOMMENDATION: Routine annual mammography screening. 1 year F/U This examination should not preclude the clinical evaluation of a suspicious palpable abnormality. This patient's information was entered into a reminder system with a target due date for their next mammogram.
== END 2023-10-15 10:25 | disposition home or self-care (01) ==
LOC: HO.MAMMO 10:24
PROVIDERS: PCP Family Medicine; Visit Provider Family Medicine
DX: Z12.31 Encounter for screening mammogram for malignant neoplasm of breast (principal); Z13.820 Encounter for screening for osteoporosis; M85.80 Other specified disorders of bone density and structure, unspecified site; Z78.0 Asymptomatic menopausal state
CPT/HCPCS: 77063; 77067; 77080

== ENCOUNTER → 2023-10-15 11:00 | Outpatient (BNV) | payer MEDICARE, SELFPAY | PROVIDERS: PCP Family Medicine; Visit Provider Radiology Diagnostic Radiology | DX: Z12.31 Encounter for screening mammogram for malignant neoplasm of breast (principal) | CPT/HCPCS: 77063; 77067 ==

== ENCOUNTER 2024-02-15 10:41 | Emergency (ER) | payer MEDICARE, SELFPAY ==
--- NOTE | ~2024-02-15 | XR_ITS ---
EXAMINATION: XR KNEE, RIGHT XR KNEE, LEFT XR HAND, RIGHT XR HAND, LEFT CLINICAL INDICATION: Fall, pain in bilateral knees and hands. TECHNIQUE: 4 views of each knee. 3 views of each hand. COMPARISON: None available. FINDINGS: RIGHT KNEE: The bones are diffusely demineralized. Extensive chondrocalcinosis in the medial and lateral compartments. Calcifications in the adjacent soft tissues are vascular. Moderate medial compartment space narrowing and medial marginal osteophytes. Tiny posterior patellar osteophytes. LEFT KNEE: The bones are diffusely demineralized. Abundant chondrocalcinosis in the medial and lateral compartments. Moderate narrowing of the medial compartment. Tiny tricompartmental osteophytes. No significant joint effusion. Extensive vascular calcifications. RIGHT HAND: The bones are diffusely demineralized. Extensive vascular calcifications. Moderate degenerative changes in the first carpometacarpal joint with joint space narrowing and hypertrophic change. Ulnar minus variance. Amorphous calcifications in the soft tissues predominantly along the radial aspects of the metacarpophalangeal joints characteristic of chondrocalcinosis. A few tiny calcifications are scattered in the soft tissues of various digits. Mild degenerative changes in scattered interphalangeal joints. LEFT HAND: The bones are diffusely demineralized. Vascular calcifications. Moderate degenerative changes in the first carpometacarpal joint with joint space narrowing and hypertrophic change. Ulnar minus variance. A few amorphous calcifications are identified adjacent to metacarpophalangeal joints, most notable adjacent to the first, second and third joints. A few tiny calcifications are scattered in the soft tissues of various digits. XR/XR hand LT min 3V IMPRESSION: 1. Extensive chondrocalcinosis in the knees. 2. Moderate degenerative changes bilateral knees. 3. Moderate degenerative changes bilateral first carpometacarpal joints. 4. Chondrocalcinosis in the hands. 5. Extensive vascular calcifications. 6. This study was presented today February 15, 2024 for interpretation. Stat results provided at this time as requested by referring provider.
--- NOTE | ~2024-02-15 | XR_ITS ---
EXAMINATION: XR KNEE, RIGHT XR KNEE, LEFT XR HAND, RIGHT XR HAND, LEFT CLINICAL INDICATION: Fall, pain in bilateral knees and hands. TECHNIQUE: 4 views of each knee. 3 views of each hand. COMPARISON: None available. FINDINGS: RIGHT KNEE: The bones are diffusely demineralized. Extensive chondrocalcinosis in the medial and lateral compartments. Calcifications in the adjacent soft tissues are vascular. Moderate medial compartment space narrowing and medial marginal osteophytes. Tiny posterior patellar osteophytes. LEFT KNEE: The bones are diffusely demineralized. Abundant chondrocalcinosis in the medial and lateral compartments. Moderate narrowing of the medial compartment. Tiny tricompartmental osteophytes. No significant joint effusion. Extensive vascular calcifications. RIGHT HAND: The bones are diffusely demineralized. Extensive vascular calcifications. Moderate degenerative changes in the first carpometacarpal joint with joint space narrowing and hypertrophic change. Ulnar minus variance. Amorphous calcifications in the soft tissues predominantly along the radial aspects of the metacarpophalangeal joints characteristic of chondrocalcinosis. A few tiny calcifications are scattered in the soft tissues of various digits. Mild degenerative changes in scattered interphalangeal joints. LEFT HAND: The bones are diffusely demineralized. Vascular calcifications. Moderate degenerative changes in the first carpometacarpal joint with joint space narrowing and hypertrophic change. Ulnar minus variance. A few amorphous calcifications are identified adjacent to metacarpophalangeal joints, most notable adjacent to the first, second and third joints. A few tiny calcifications are scattered in the soft tissues of various digits. XR/XR knee RT 4V IMPRESSION: 1. Extensive chondrocalcinosis in the knees. 2. Moderate degenerative changes bilateral knees. 3. Moderate degenerative changes bilateral first carpometacarpal joints. 4. Chondrocalcinosis in the hands. 5. Extensive vascular calcifications. 6. This study was presented today February 15, 2024 for interpretation. Stat results provided at this time as requested by referring provider.
--- NOTE | ~2024-02-15 | XR_ITS ---
EXAMINATION: XR KNEE, RIGHT XR KNEE, LEFT XR HAND, RIGHT XR HAND, LEFT CLINICAL INDICATION: Fall, pain in bilateral knees and hands. TECHNIQUE: 4 views of each knee. 3 views of each hand. COMPARISON: None available. FINDINGS: RIGHT KNEE: The bones are diffusely demineralized. Extensive chondrocalcinosis in the medial and lateral compartments. Calcifications in the adjacent soft tissues are vascular. Moderate medial compartment space narrowing and medial marginal osteophytes. Tiny posterior patellar osteophytes. LEFT KNEE: The bones are diffusely demineralized. Abundant chondrocalcinosis in the medial and lateral compartments. Moderate narrowing of the medial compartment. Tiny tricompartmental osteophytes. No significant joint effusion. Extensive vascular calcifications. RIGHT HAND: The bones are diffusely demineralized. Extensive vascular calcifications. Moderate degenerative changes in the first carpometacarpal joint with joint space narrowing and hypertrophic change. Ulnar minus variance. Amorphous calcifications in the soft tissues predominantly along the radial aspects of the metacarpophalangeal joints characteristic of chondrocalcinosis. A few tiny calcifications are scattered in the soft tissues of various digits. Mild degenerative changes in scattered interphalangeal joints. LEFT HAND: The bones are diffusely demineralized. Vascular calcifications. Moderate degenerative changes in the first carpometacarpal joint with joint space narrowing and hypertrophic change. Ulnar minus variance. A few amorphous calcifications are identified adjacent to metacarpophalangeal joints, most notable adjacent to the first, second and third joints. A few tiny calcifications are scattered in the soft tissues of various digits. XR/XR hand RT min 3V IMPRESSION: 1. Extensive chondrocalcinosis in the knees. 2. Moderate degenerative changes bilateral knees. 3. Moderate degenerative changes bilateral first carpometacarpal joints. 4. Chondrocalcinosis in the hands. 5. Extensive vascular calcifications. 6. This study was presented today February 15, 2024 for interpretation. Stat results provided at this time as requested by referring provider.
--- NOTE | ~2024-02-15 | CT_ITS ---
EXAMINATION: CT HEAD WITHOUT CONTRAST CT FACE WITHOUT CONTRAST CT CERVICAL SPINE WITHOUT CONTRAST CLINICAL INFORMATION: Head strike. Pain. COMPARISON: Facial bone CT scan 04/19/2015. TECHNIQUE: [employer] images were obtained. CT imaging of the head, face, and cervical spine was performed without contrast. Data was reformatted into multiplanar images at the acquisition workstation. This CT examination was performed using dose optimization techniques as appropriate, including one or more of the following: Automated exposure control, iterative reconstruction, and adjustment of technique factors (mA and/or kVp) according to patient size (this includes techniques or standardized protocols for targeted exams where dose is matched to indication/reason for exam). Fleischner Society criteria for the followup of incidental pulmonary nodules was implemented if appropriate. DLP: 1287 mGy-cm. FINDINGS: Head: There is no acute intracranial hemorrhage or abnormal extra-axial collection. No intracranial mass effect or midline shift. Lateral and third ventricles are normal. There are scattered nonspecific foci of hypoattenuation within the periventricular white matter and alejandra. More-white matter differentiation is grossly preserved and there is no evidence of acute territorial infarct. The calvarium and skull base are intact. There are trace mastoid tip effusions. Face: Nasal bones, zygomatic arches, and pterygoid processes are intact. There is no acute mandibular fracture. Globes and extraocular muscles are symmetric. No abnormal retrobulbar inflammation or hematoma. Lamina papyracea and orbital floors are intact and there is no evidence of acute orbital blowout fracture. There is mild mucosal thickening within the alveolar recess of the right maxillary sinus. Paranasal sinuses are otherwise well aerated and thalami major paranasal sinus drainage pathways are patent. Cervical spine: Spinal alignment is normal. Vertebral body heights are preserved. No acute fracture. No abnormal prevertebral soft tissue swelling. There is no spinal canal compromise. There is degenerative arthrosis of the facet joints at multiple levels within the cervical spine. No bony neuroforaminal encroachment. Visualized soft tissues of the neck are normal. Lung apices are clear. CT/CT facial bones wo IV con IMPRESSION: Unremarkable examination in that there is no acute intracranial hemorrhage. No acute facial fracture. No acute cervical spine fracture and no posttraumatic spinal subluxation.
--- NOTE | ~2024-02-15 | CT_ITS ---
EXAMINATION: CT HEAD WITHOUT CONTRAST CT FACE WITHOUT CONTRAST CT CERVICAL SPINE WITHOUT CONTRAST CLINICAL INFORMATION: Head strike. Pain. COMPARISON: Facial bone CT scan 04/19/2015. TECHNIQUE: [employer] images were obtained. CT imaging of the head, face, and cervical spine was performed without contrast. Data was reformatted into multiplanar images at the acquisition workstation. This CT examination was performed using dose optimization techniques as appropriate, including one or more of the following: Automated exposure control, iterative reconstruction, and adjustment of technique factors (mA and/or kVp) according to patient size (this includes techniques or standardized protocols for targeted exams where dose is matched to indication/reason for exam). Fleischner Society criteria for the followup of incidental pulmonary nodules was implemented if appropriate. DLP: 1287 mGy-cm. FINDINGS: Head: There is no acute intracranial hemorrhage or abnormal extra-axial collection. No intracranial mass effect or midline shift. Lateral and third ventricles are normal. There are scattered nonspecific foci of hypoattenuation within the periventricular white matter and alejandra. More-white matter differentiation is grossly preserved and there is no evidence of acute territorial infarct. The calvarium and skull base are intact. There are trace mastoid tip effusions. Face: Nasal bones, zygomatic arches, and pterygoid processes are intact. There is no acute mandibular fracture. Globes and extraocular muscles are symmetric. No abnormal retrobulbar inflammation or hematoma. Lamina papyracea and orbital floors are intact and there is no evidence of acute orbital blowout fracture. There is mild mucosal thickening within the alveolar recess of the right maxillary sinus. Paranasal sinuses are otherwise well aerated and thalami major paranasal sinus drainage pathways are patent. Cervical spine: Spinal alignment is normal. Vertebral body heights are preserved. No acute fracture. No abnormal prevertebral soft tissue swelling. There is no spinal canal compromise. There is degenerative arthrosis of the facet joints at multiple levels within the cervical spine. No bony neuroforaminal encroachment. Visualized soft tissues of the neck are normal. Lung apices are clear. CT/CT cervical spine wo IV con IMPRESSION: Unremarkable examination in that there is no acute intracranial hemorrhage. No acute facial fracture. No acute cervical spine fracture and no posttraumatic spinal subluxation.
--- NOTE | ~2024-02-15 | XR_ITS ---
EXAMINATION: XR KNEE, RIGHT XR KNEE, LEFT XR HAND, RIGHT XR HAND, LEFT CLINICAL INDICATION: Fall, pain in bilateral knees and hands. TECHNIQUE: 4 views of each knee. 3 views of each hand. COMPARISON: None available. FINDINGS: RIGHT KNEE: The bones are diffusely demineralized. Extensive chondrocalcinosis in the medial and lateral compartments. Calcifications in the adjacent soft tissues are vascular. Moderate medial compartment space narrowing and medial marginal osteophytes. Tiny posterior patellar osteophytes. LEFT KNEE: The bones are diffusely demineralized. Abundant chondrocalcinosis in the medial and lateral compartments. Moderate narrowing of the medial compartment. Tiny tricompartmental osteophytes. No significant joint effusion. Extensive vascular calcifications. RIGHT HAND: The bones are diffusely demineralized. Extensive vascular calcifications. Moderate degenerative changes in the first carpometacarpal joint with joint space narrowing and hypertrophic change. Ulnar minus variance. Amorphous calcifications in the soft tissues predominantly along the radial aspects of the metacarpophalangeal joints characteristic of chondrocalcinosis. A few tiny calcifications are scattered in the soft tissues of various digits. Mild degenerative changes in scattered interphalangeal joints. LEFT HAND: The bones are diffusely demineralized. Vascular calcifications. Moderate degenerative changes in the first carpometacarpal joint with joint space narrowing and hypertrophic change. Ulnar minus variance. A few amorphous calcifications are identified adjacent to metacarpophalangeal joints, most notable adjacent to the first, second and third joints. A few tiny calcifications are scattered in the soft tissues of various digits. XR/XR knee LT 4V IMPRESSION: 1. Extensive chondrocalcinosis in the knees. 2. Moderate degenerative changes bilateral knees. 3. Moderate degenerative changes bilateral first carpometacarpal joints. 4. Chondrocalcinosis in the hands. 5. Extensive vascular calcifications. 6. This study was presented today February 15, 2024 for interpretation. Stat results provided at this time as requested by referring provider.
[2024-02-15 10:50] VITALS: BP 107/72; PULSE 66; RESP 20; TEMP 36.3; O2SAT 100; BMI 32.9
--- NOTE | 2024-02-15 12:48 | PC.NURSE ---
able to ambulate from wheelchair to bed with steady gait
--- NOTE | 2024-02-15 12:50 | ED_ITS ---
HPI - General Adult General Chief complaint: Fall Stated complaint: fall Time Seen by Provider: 02/15/24 12:49 Source: patient Mode of arrival: ambulatory Limitations: no limitations History of Present Illness HPI narrative: Patient is an 78 year old assigned female at with a history of HTN, asthma, and anemia presenting to the emergency department today with bilateral hand pain, bilateral knee pain, and facial pain after a fall. Patient states that yesterday, she tripped and fell, causing her hands and knees to hurt. Patient states that she is on Eliquis. Patient denies any dizziness, lightheadedness, abdominal pain, nausea, vomiting, fever, chills, blurry vision, double vision, loss of vision, chest pain, difficulty breathing, shortness of breath, back pain, night sweats, pain with urination, increased urinary frequency, increased urinary urgency, blood in her urine or stool, syncope or a near syncopal episode, bowel incontinence, bladder incontinence, bowel retention, bladder retention, or any other complaints at this time. Onset (ago): day(s) (1) Location: head, face, left, right, upper extremity and lower extremity Severity: mild Severity scale (1-10): 3 Relieving factors: none Exacerbating factors: none Associated symptoms: denies other symptoms Treatments prior to arrival: none Related Data Home Medications ?Medication ?Instructions ?Recorded ?Confirmed albuterol sulfate 90 mcg/actuation 0 mcg inhalation 07/16/21 aerosol inhaler (Ventolin HFA) amlodipine 5 mg tablet 5 mg PO QAM 07/16/21 dapagliflozin propanediol 5 mg 5 mg PO DAILY 07/16/21 tablet (Farxiga) doxazosin 4 mg tablet 0 mg PO 07/16/21 ferrous sulfate 325 mg (65 mg 325 mg PO TID 07/16/21 iron) tablet (FeroSul) fluticasone propionate 110 0 mcg inhalation 07/16/21 mcg/actuation HFA aerosol inhaler (Flovent HFA) furosemide 40 mg tablet 40 mg PO 07/16/21 gabapentin 600 mg tablet 600 mg PO 07/16/21 insulin aspart U-100 100 unit/mL subcut 07/16/21 (3 mL) subcutaneous pen (Novolog FlexPen U-100 Insulin aspart) isosorbide mononitrate 30 mg 30 mg PO QAM 07/16/21 tablet,extended release 24 hr mirabegron 50 mg tablet,extended 50 mg PO DAILY 07/16/21 release 24 hr (Myrbetriq) rosuvastatin 20 mg tablet 20 mg PO BEDTIME 07/16/21 sennosides 8.6 mg tablet (Senna 0 mg PO 07/16/21 Laxative) omeprazole 20 mg capsule,delayed 20 mg PO QAM 03/04/22 release ascorbate calcium (vitamin C) 500 500 mg PO DAILY 06/02/23 mg tablet Allergies Allergy/AdvReac Type Severity Reaction Status Date / Time No Known Allergies Allergy Mild NONE Verified 02/15/24 10:52 Review of Systems Constitutional: Constitutional: Reports no additional constitutional complaints, Denies chills, Denies fever(s) and Denies night sweats Eyes: Eyes: Reports no additional eye complaints, Denies blurry vision, Denies change in vision, Denies diplopia, Denies eye discharge, Denies loss of vision and Denies eye pain ENT: Denies dizziness Cardiovascular: Cardiovascular: Reports no additional cardiovascular complaints, Denies chest pain, Denies lightheadedness, Denies Loss of Consciousness and Denies dyspnea Respiratory: Respiratory: Reports no additional respiratory complaints and Denies dyspnea Gastrointestinal: Gastrointestinal: Reports no additional gastrointestinal complaints, Denies abdominal pain, Denies melena, Denies hematochezia, Denies change in bowel habits and Denies change in stool character Genitourinary: Genitourinary: Denies hematuria, Denies urinary frequency, Denies dysuria, Denies urinary incontinence, Denies urinary hesitancy and Denies urinary urgency Musculoskeletal: Musculoskeletal: Reports no additional musculoskeletal complaints, Denies numbness and Denies tingling Comments: bilateral hand pain, bilateral knee pain, facial pain Neurologic: Denies dizziness, Denies loss of vision, Denies numbness and Denies tingling Psychiatric: Psychiatric: Reports no additional psychiatric complaints Endocrine: Endocrine: Reports no additional endocrine complaints Hematologic/Lymphatic: Hematologic/Lymphatic: Reports no additional hematologic/lymphatic complaints Allergic/Immunologic: Allergic/Immunologic: Reports no additional allergic/immunologic complaints PMFSH Past Medical History Attestation statement: The following information was validated with the patient. Source: old records reviewed and nursing notes reviewed Medical History Eye disorder Asthma Chronic anemia Dyslipidemia HTN (hypertension) Family History Family History Father No problems noted. Mother No problems noted. Social History Social History Household Members: Family Alcohol intake: never Patient Tobacco Use Status: Former Tobacco user Advance Directives: No Advance Directives Information Provided: No Current occupational status: retired Current occupation: right hand dominant Physical Exam ED Vital Signs: Vital Signs - 24 hr 02/15/24 10:50 02/15/24 12:56 02/15/24 14:28 Temperature 97.4 F 97.7 F 97.7 F Pulse Rate 66 61 61 Respiratory Rate 20 18 18 Blood Pressure 107/72 145/63 H 145/63 H Pulse Oximetry 100 97 97 Oxygen Delivery Method Room Air Room Air Room Air BMI result Body Mass Index 32.9 Const General: cooperative, no acute distress, alert and awake Nutritional Appearance: well nourished Orientation/consciousness: patient oriented x3 Limitations: no limitations HENMT Head: Yes normal to inspection and Yes atraumatic Ears: hearing grossly normal bilaterally and external ears normal General nose exam: Normal external nose present, no nasal discharge noted and no epistaxis Face and sinus: Yes normal facial exam, No abrasion and No laceration Mouth: Normal oral and palatal mucosa present, no drooling and no muffled voice Eyes General: appearance normal, both eyes and all related structures Periorbital: periorbital findings normal Eyelids: Yes eyelids normal Conjunctivae: conjunctivae normal Pupils: Equal, round and reactive pupils present EOM: EOMs intact bilaterally Neck Neck: Yes normal visual inspection, Yes full ROM and Yes no lymphadenopathy Chest Chest palpation & inspection: normal inspection of the chest Resp Effort & Inspection: normal respiratory effort and able to speak in complete sentences GI Inspection: Yes normal to inspection Neuro General: patient oriented x3 and moves all extremities Cranial nerves: Yes Equal, round and reactive pupils present Cognition (Neuro): normal cognition Motor exam (neuro): 5/5 motor strength present throughout Sensory Exam: Normal double simultaneous stimulation for sensation Coordination: [id number] test normal Extrem General: Yes normal to inspection, Yes full ROM and Yes capillary refill normal Psych Appearance: grossly normal Mental Status: mental status grossly normal Affect: normal affect Attitude: cooperative Thought process: Normal thought process present Thought content: Normal thought content present Insight: Good insight present (Psych) Medical Decision Making Medical Decision Making MDM Narrative: Patient is an 78 year old assigned female at with a history of HTN, anemia, and asthma presenting to the emergency department today with bilateral hand pain, bilateral knee pain, and facial pain. Patient's physical exam was unremarkable. Patient's bilateral hand x-rays, bilateral knee x-rays, head CT, facial CT, and c-spine CT showed no acute process. I explained my physical exam findings as well as all test results to the patient. I answered all questions asked by the patient. I stressed the importance of the patient taking her medication as prescribed. I stressed the importance of the patient following up with her primary care provider. I stressed the importance of the patient returning to the emergency department immediately if her symptoms were to worsen or if she were to develop any dizziness, shortness of breath, difficulty breath ing, chest pain, blurry vision, loss of vision, nausea, vomiting, abdominal pain, fever, chills, back pain, or any other complaints. Patient verbalized agreement and understanding with this treatment plan and discharge. Differential Diagnosis Differential Diagnoses: The differential diagnosis associated with the presentation includes Bilateral hand pain Bilateral knee pain Fall Admission/Observation Consideration of admission/observation: Escalation of care including admission/observation considered Patient would have been admitted to the hospital had her work up had any findings where hospital admission was appropriate and her clinical presentation warranted hospital admission. Independent Interpretation I performed an independent interpretation of an: Plain X-Ray and CT Scan Interpretation: My interpretation is in agreement with the radiologist's impression of these imaging studies. ----- EXAMINATION: CT HEAD WITHOUT CONTRAST CT FACE WITHOUT CONTRAST CT CERVICAL SPINE WITHOUT CONTRAST CLINICAL INFORMATION: Head strike. Pain. COMPARISON: Facial bone CT scan 04/19/2015. TECHNIQUE: Engineering Test Mechanic images were obtained. CT imaging of the head, face, and cervical spine was performed without contrast. Data was reformatted into multiplanar images at the acquisition workstation. This CT examination was performed using dose optimization techniques as appropriate, including one or more of the following: Automated exposure control, iterative reconstruction, and adjustment of technique factors (mA and/or kVp) according to patient size (this includes techniques or standardized protocols for targeted exams where dose is matched to indication/reason for exam). Fleischner Society criteria for the followup of incidental pulmonary nodules was implemented if appropriate. DLP: 1287 mGy-cm. FINDINGS: Head: There is no acute intracranial hemorrhage or abnormal extra-axial collection. No intracranial mass effect or midline shift. Lateral and third ventricles are normal. There are scattered nonspecific foci of hypoattenuation within the periventricular white matter and alejandra. More-white matter differentiation is grossly preserved and there is no evidence of acute territorial infarct. The calvarium and skull base are intact. There are trace mastoid tip effusions. Face: Nasal bones, zygomatic arches, and pterygoid processes are intact. There is no acute mandibular fracture. Globes and extraocular muscles are symmetric. No abnormal retrobulbar inflammation or hematoma. Lamina papyracea and orbital floors are intact and there is no evidence of acute orbital blowout fracture. There is mild mucosal thickening within the alveolar recess of the right maxillary sinus. Paranasal sinuses are otherwise well aerated and thalami major paranasal sinus drainage pathways are patent. Cervical spine: Spinal alignment is normal. Vertebral body heights are preserved. No acute fracture. No abnormal prevertebral soft tissue swelling. There is no spinal canal compromise. There is degenerative arthrosis of the facet joints at multiple levels within the cervical spine. No bony neuroforaminal encroachment. Visualized soft tissues of the neck are normal. Lung apices are clear. CT/CT cervical spine wo IV con IMPRESSION: Unremarkable examination in that there is no acute intracranial hemorrhage. No acute facial fracture. No acute cervical spine fracture and no posttraumatic spinal subluxation. Dictated By: Aaron Tellez MD Signed By: Electronically signed by Aaron Tellez MD 02/15/24 1411 EXAMINATION: XR KNEE, RIGHT XR KNEE, LEFT XR HAND, RIGHT XR HAND, LEFT CLINICAL INDICATION: Fall, pain in bilateral knees and hands. TECHNIQUE: 4 views of each knee. 3 views of each hand. COMPARISON: None available. FINDINGS: RIGHT KNEE: The bones are diffusely demineralized. Extensive chondrocalcinosis in the medial and lateral compartments. Calcifications in the adjacent soft tissues are vascular. Moderate medial compartment space narrowing and medial marginal osteophytes. Tiny posterior patellar osteophytes. LEFT KNEE: The bones are diffusely demineralized. Abundant chondrocalcinosis in the medial and lateral compartments. Moderate narrowing of the medial compartment. Tiny tricompartmental osteophytes. No significant joint effusion. Extensive vascular calcifications. RIGHT HAND: The bones are diffusely demineralized. Extensive vascular calcifications. Moderate degenerative changes in the first carpometacarpal joint with joint space narrowing and hypertrophic change. Ulnar minus variance. Amorphous calcifications in the soft tissues predominantly along the radial aspects of the metacarpophalangeal joints characteristic of chondrocalcinosis. A few tiny calcifications are scattered in the soft tissues of various digits. Mild degenerative changes in scattered interphalangeal joints. LEFT HAND: The bones are diffusely demineralized. Vascular calcifications. Moderate degenerative changes in the first carpometacarpal joint with joint space narrowing and hypertrophic change. Ulnar minus variance. A few amorphous calcifications are identified adjacent to metacarpophalangeal joints, most notable adjacent to the first, second and third joints. A few tiny calcifications are scattered in the soft tissues of various digits. XR/XR hand LT min 3V IMPRESSION: 1. Extensive chondrocalcinosis in the knees. 2. Moderate degenerative changes bilateral knees. 3. Moderate degenerative changes bilateral first carpometacarpal joints. 4. Chondrocalcinosis in the hands. 5. Extensive vascular calcifications. 6. This study was presented today February 15, 2024 for interpretation. Stat results provided at this time as requested by referring provider. Dictated By: Adriana Velazquez MD Signed By: Electronically signed by Adriana Velazquez MD 02/15/24 0770 Radiology Impression Discussion of test interpretation with radiology: I have reviewed the radiologist's reading. Discharge Plan Discharge Clinical Impression: Fall Patient Disposition: Home, Self-Care Instructions: Fall Prevention for Older Adults (ED) Additional Instructions: Follow up with your primary care provider. Return to the emergency department immediately if your symptoms worsen or if you develop any dizziness, shortness of breath, difficulty breathing, chest pain, blurry vision, loss of vision, nausea, vomiting, abdominal pain, fever, chills, back pain, or any other complaints. Prescriptions: No Action Myrbetriq 50 mg tablet extended release 24 hr 50 mg PO DAILY Farxiga 5 mg tablet 5 mg PO DAILY doxazosin 4 mg tablet 0 mg PO rosuvastatin 20 mg tablet 20 mg PO BEDTIME ferrous sulfate [FeroSul] 325 mg (65 mg iron) tablet 325 mg PO TID isosorbide mononitrate 30 mg tablet extended release 24 hr 30 mg PO QAM sennosides [Senna Laxative] 8.6 mg tablet 0 mg PO furosemide 40 mg tablet 40 mg PO gabapentin 600 mg tablet 600 mg PO insulin aspart U-100 [Novolog FlexPen U-100 Insulin] 100 unit/mL (3 mL) insulin pen subcut Flovent HFA 110 mcg/actuation HFA aerosol inhaler 0 mcg inhalation albuterol sulfate [Ventolin HFA] 90 mcg/actuation HFA aerosol inhaler 0 mcg inhalation amlodipine 5 mg tablet 5 mg PO QAM omeprazole 20 mg capsule,delayed release(DR/EC) 20 mg PO QAM ascorbate calcium (vitamin C) 500 mg tablet 500 mg PO DAILY Referrals: Hazel Kilgore MD [Primary Care Provider] - Interventions: ED Discharge Assessment Last Done: 02/15/24 14:28 Discharge Date/Time: 02/15/24 14:28 Print Language: Sami
[2024-02-15 12:56] VITALS: BP 145/63; PULSE 61; RESP 18; TEMP 36.5; O2SAT 97
--- OUTSIDE RECORDS SUMMARY | 2024-02-15 13:10 | XMS_ITS | Continuity of Care Document ---
Author Organization [facility] Address [address] [place] [id number]- Care Team Providers Care Purler Name Role Phone Hazel Kilgore MD Primary Care Physician Encounter [facility] [place] Date(s): 08/06/23 - 09/05/23 [facility] [address] [place] [id number]- Attending Physician: Jeremy Gaston Admitting Physician: Jeremy Gaston Referring Physician: Jeremy Gaston Allergies, Adverse Reactions, Alerts No Known Allergies Medications amLODIPine 5 mg oral tablet 5 mg, 1, tablet, By Mouth, Daily, Refills 0, Maintenance, 03/12/17 11:32:25 Start Date: 03/12/17 Status: Ordered apixaban 5 mg oral tablet = 5 mg, By Mouth, 2 times a day, # 60 tablet, 0 Refills, Maintenance, 07/23/23 11:25:00 EDT, Tablet, [facility], Partial fill upon patient request if the prescription is for a schedule II opioid drug., 159, cm, 07/23/23 7:29:00 EDT... Start Date: 07/23/23 Status: Ordered aspirin 81 mg oral tablet 1 tablet = 81 mg, By Mouth, Daily, 0 Refills, Maintenance, 12/29/16 15:04:44 Start Date: 12/29/16 Status: Ordered Calcium 600 +D By Mouth, 0 Refills, Maintenance, 08/22/16 13:45:45 Start Date: 08/22/16 Status: Ordered Crestor 20 mg oral tablet 1 tablet = 20 mg, By Mouth, Daily at bedtime, 0 Refills, Maintenance, 07/01/16 9:49:40 Start Date: 07/01/16 Status: Ordered doxazosin 4 mg oral tablet 1 tablet = 4 mg, By Mouth, Daily, 0 Refills, Maintenance, 07/01/16 9:49:26 Start Date: 07/01/16 Status: Ordered Farxiga 10 mg oral tablet 1 tablet = 10 mg, By Mouth, Daily, # 30 tablet, 11 Refills, Maintenance, 03/03/23 10:18:00 EDT, Tablet, [facility], Partial fill upon patient request if the prescription is for a schedule II opioid drug., 153.7, cm, 10/27/22 10:48:... Start Date: 03/03/23 Status: Ordered ferrous sulfate 325 mg oral tablet 1 tablet = 325 mg, By Mouth, 3 times a day, 0 Refills, Maintenance, 12/29/16 15:03:37 Start Date: 12/29/16 Status: Ordered furosemide 40 mg oral tablet 40 mg, 1, tablet, By Mouth, Daily, Refills 0, Maintenance, 07/01/16 9:48:03 Start Date: 07/01/16 Status: Ordered gabapentin 600 mg oral tablet 1 tablet = 600 mg, By Mouth, 3 times a day, 0 Refills, Maintenance, 07/01/16 9:49:10 Start Date: 07/01/16 Status: Ordered Imdur 30 mg oral tablet, extended release 1, tablet, By Mouth, Daily in AM, # 30 tablet, Refills 0, Maintenance, 07/22/23 21:44:00 EDT, Partial fill upon patient request if the prescription is for a schedule II opioid drug. Start Date: 07/22/23 Status: Ordered Lantus Solostar Pen 100 units/mL subcutaneous solution = 30 units, Subcutaneous Injection, Daily at bedtime, 0 Refills, Maintenance, 07/01/16 9:50:48 EDT Start Date: 07/01/16 Status: Ordered lisinopril 30 mg oral tablet 1 tablet = 30 mg, By Mouth, Daily, 0 Refills, Maintenance, 07/01/16 9:48:34 Start Date: 07/01/16 Status: Ordered magnesium oxide 400 mg oral tablet 1 tablet = 400 mg, By Mouth, Daily, 0 Refills, Maintenance, 02/10/17 13:16:40 Start Date: 02/10/17 Status: Ordered metoprolol 25 mg oral tablet, extended release 25 mg, By Mouth, Daily, # 30 tablet, Refills 0, Tot. Refills 0, Maintenance, 07/23/23 11:24:00 EDT,Route to Pharmacy Electronically, [facility], Partial fill upon patient requestif the prescription is for a schedule II opioid roshan... Start Date: 07/23/23 Status: Ordered mirabegron 50 mg oral tablet, extended release 1 tablet = 50 mg, By Mouth, Daily, do not crush or chew, # 30 tablet, 11 Refills, Maintenance, 08/11/22 12:51:00 EDT, ER Tablet, [facility], 153.7, cm, 07/11/22 10:57:00 EDT, Height, 91.8, kg, 04/28/22 10:58:00 EDT, Dry Weight Start Date: 08/11/22 Status: Ordered NovoLOG FlexPen 100 units/mL subcutaneous solution Subcutaneous Injection, 3 times a day before meals, 0 Refills, Maintenance, 07/01/16 9:50:36 Start Date: 07/01/16 Status: Ordered omeprazole 20 mg oral delayed release tablet 1 tablet = 20 mg, By Mouth, Daily, 0 Refills, Maintenance, 12/29/16 15:04:06 Start Date: 12/29/16 Status: Ordered traMADol 50 mg oral tablet 1 tablet = 50 mg, By Mouth, Daily, PRN Pain , Severe, 0 Refills, Maintenance, 04/28/22 11:01:00 EDT, Partial fill upon patient request if the prescription is for a schedule II opioid drug. Start Date: 04/28/22 Status: Ordered Trulicity Pen 1.5 mg/0.5 mL subcutaneous solution See Instructions, INJECT ONE PEN (=1.5MG) SUBCUTANEOUSLY ONCE A WEEK DIRECTED, # 6 mL, 3 Refills, Maintenance, 08/12/23 16:09:00 EDT, [facility], 159, cm, 07/23/23 11:39:00 EDT, Height, 86.2, kg, 08/04/23 11:45:00 EDT, Dry Weight Start Date: 08/12/23 Status: Ordered Vitamin C By Mouth, Daily, 0 Refills, Maintenance, 03/12/17 11:32:49 Start Date: 03/12/17 Status: Ordered Problem List Condition Confirmation Course Effective Dates Status Health St atus Informant Atrial fibrillation with RVR Confirmed Active Chronic kidney disease (CKD) stage G3a/A1, moderately decreased glomerular filtration rate (GFR) between 45-59 mL/min/1.73 square meter and albuminuria creatinine ratio less than 30 mg/g Confirmed Active COPD (chronic obstructive pulmonary disease) Confirmed Active Recurrent carcinoma of endometrium Confirmed Active GERD (gastroesophageal reflux disease) Confirmed Active Hyperlipemia Confirmed Active Knee pain Confirmed Active Abnormal laboratory test 1 Confirmed Active Endometrial cancer Confirmed Active Positive PPD 20 mm Confirmed 10/07/16 Active Obese class I Confirmed Active Seborrheic keratoses Confirmed Active Type 2 diabetes mellitus Confirmed Active 1T Spot Positive 10/20/2016 Social History Social History Type Response Smoking Status Former smoker; Tobac [employer] user in household: No; Type: Cigarettes; Other: Quit 24 years ago; entered on: 12/29/16 Sex Implantable Device List Procedure Provider Procedure Date Device Type Site Cystoscopy with Transurethra l Injection Didi Duran MD 07/22/23 Unknown Urethra Device Identifier Serial Number Lot or Batch Number Manufacturing Date Expiration Date Distinct Identification Code MRI Safety Implantable Status Assigning Authority Unknown Unknown [id number] Unknown 04/08/26 Unknown Unknown Active Unk nown Patient Care team information Care Team Personnel Name: Lashay Anderson RN Position: [facility] RN Member Role: Primary Care Nurse Name: Hazel Kilgore MD Position: [facility] Outreach Member Role: PCP Address: Address: [address] [place] [address] [place] [id number] Name: Hazel James RN Position: [facility] RN Member Role: Primary Care Nurse Name: Anastasia Wright RN Position: [facility] RN Member Role: Primary Care Nurse Name: Monique Kohli RN Position: [facility] Hospital Ceramic Plater Member Role: Primary Care Nurse Name: Maxine Stewart RN Position: [facility] RN Member Role: Primary Care Nurse Name: Delma Harrell RN Position: [facility] Onco RN Member Role: Primary Care Nurse Care Team Related Persons Name: MITRA WAYNE Address: [address] [address] Name: JOYCE ALCALA Address: [address] [address]
--- OUTSIDE RECORDS SUMMARY | 2024-02-15 13:10 | XMS_ITS | Continuity of Care Document ---
Author Organization [facility] ter Address [address] [place] [id number]- Care Team Providers Care Marble Polisher Name Role Phone Magui Hazel FELIPE Primary Care Physician [place] [facility] [place](s): 07/22/23 - 07/23/[address] [address]- Encounter Diagnosis Post-operative state(Discharge Diagnosis) - 07/22/23 Discharge Disposition: A-D/C Home Attending Physician: Cam Rain MD Admitting Physician: Didi Duran MD Referring Physician: Didi Duran MD Allergies, Adverse Reactions, Alerts No Known Allergies Medications amLODIPine 5 mg oral tablet 5 mg, Tablet, By Mouth, 07/23/23 9:00:00 EDT Start Date: 07/23/23 Stop Date: 07/23/23 Status: Completed amLODIPine 5 mg oral tablet 5 mg, 1, tablet, By Mouth, Daily, Refills 0, Maintenance, 03/12/17 11:32:25 Start Date: 03/12/17 Status: Ordered apixaban 5 mg oral tablet = 5 mg, By Mouth, 2 times a day, # 60 tablet, 0 Refills, Maintenance, 07/23/23 11:25:00 EDT, Tablet, [facility], Partial fill upon patient request if [...] 9:49:40 Start Date: 07/01/16 Status: Ordered doxazosin 2 mg oral tablet 4 mg, Tablet, By Mouth, 07/23/23 9:00:00 EDT Start Date: 07/23/23 Stop Date: 07/23/23 Status: Completed doxazosin 4 mg oral tablet 1 tablet = 4 mg, By Mouth, Daily, 0 Refills, Maintenance, 07/01/16 9:49:26 Start Date: 07/01/16 Status: Ordered Farxiga 10 mg oral tablet 1 tablet = 10 mg, By Mouth, Daily, # 30 tablet, 11 Refills, Maintenance, 03/03/23 10:18:00 EDT, Tablet, [facility], Partial fill upon patient request if [...] 9:48:03 Start Date: 07/01/16 Status: Ordered gabapentin 300 mg oral capsule 600 mg, Capsule, By Mouth, 07/23/23 9:00:00 EDT Start Date: 07/23/23 Stop Date: 07/23/23 Status: Completed gabapentin 600 mg oral tablet 1 tablet [...] mg oral tablet, extended release 25 mg, XL Tablet, By Mouth, 07/23/23 9:00:00 EDT Start Date: 07/23/23 Stop Date: 07/23/23 Status: Completed metoprolol 25 mg oral tablet, extended release 25 mg, By Mouth, Daily, # 30 tablet, Refills 0, Tot. Refills 0, Maintenance, 07/23/23 11:24:00 EDT,Route to Pharmacy Electronically, [facility], Partial fill upon patient requestif the prescription is for a schedule II opioid roshan... Start Date: 07/23/23 Status: Ordered mirabegron 50 mg oral tablet, extended release 1 tablet = 50 mg, By Mouth, Daily, do not crush or chew, # 30 tablet, 11 Refills, Maintenance, 08/11/22 12:51:00 EDT, ER Tablet, [facility], 153.7, cm, 07/11/22 10:57:00 EDT, Height, [...] Trulicity Pen 1.5 mg/0.5 mL subcutaneous solution 0.5 mL = 1.5 mg, Subcutaneous Injection, Every week, rotate injection sites. 90 day supply. E 11.9,# 6.5 mL, 3 Refills, Maintenance, 05/26/23 11:55:00 EDT, Solution, [facility], Partial fill upon patient request if the prescriptio... Start Date: 05/26/23 Status: Ordered Vitamin C By Mouth, Daily, [...] mellitus Confirmed Active 1T Spot Positive 10/20/2016 Diagnosis Diagnosis Type Effective Dates Health Status inical Service Informant Post-operative state Discharge Diagnosis 07/22/23 Vital Signs Most recent to oldest [Reference Range]: 1 2 3 4 Height 159 cm (07/23/23 11:39 AM) 159 cm (07/23/23 7:29 AM) 159 cm (07/23/23 4:10 AM) Weight 81.1 kg (07/22/23 4:35 PM) 86 kg (07/22/23 4:34 PM) 86.0 kg (07/22/23 6:30 AM) Oxygen Saturation [94-100 %] 98 % (07/23/23 11:39 AM) 95 % (07/23/23 7:29 AM) 98 % (07/23/23 4:10 AM) Pulse Rate [55-90 bpm] 59 bpm (07/23/23 11:39 AM) 61 bpm (07/23/23 9:27 AM) 61 bpm (07/23/23 7:29 AM) Body Mass Index [18.5-24.99 kg/m2] 34.02 kg/m2 *>HHI* (07/22/23 4:34 PM) Blood Pressure [90-138/55-84 mm Hg] 118/57mm Hg (07/23/23 11:39 AM) 143/50mm Hg *H* (07/23/23 9:27 AM) 143/50mm Hg *H* (07/23/23 9:27 AM) 143/50mm Hg *H* (07/23/23 9:27 AM) Respiratory Rate [16-30 br/min] 18 br/min (07/23/23 11:39 AM) 18 br/min (07/23/23 10:27 AM) 18 br/min (07/23/23 9:27 AM) Temperature [96.8-100.4 DegF] 97.9 DegF (07/23/23 11:39 AM) 98.1 DegF (07/23/23 7:29 AM) 98.0 DegF (07/23/23 4:10 AM) Liters per Minute 5 L/min (07/22/23 8:30 AM) 5 L/min (07/22/23 8:15 AM) 5 L/min (07/22/23 8:00 AM) Mode of Delivery (Oxygen) Room air (07/23/23 11:39 AM) Room air (07/23/23 7:29 AM) Room air (07/23/23 4:10 AM) Blood pressure sites Arm, left (07/23/23 11:39 AM) Arm, left (07/23/23 7:29 AM) Arm, right (07/23/23 4:10 AM) Temperature Route Oral (07/23/23 11:39 AM) Oral (07/23/23 7:29 AM) Oral (07/23/23 4:10 AM) Dry Weight 86 kg (07/22/23 4:34 PM) 86.0 kg (07/22/23 6:30 AM) Weight Obtained Via Bed scale (07/22/23 4:35 PM) Standing scale (07/22/23 6:30 AM) Dry Weight Obtained Via Standing scale (07/22/23 6:30 AM) Social History Social History Type Response Smoking [...] Safety Implantable Status Assigning Authority Unknown Unknown [id number] Unknown 04/08/26 Unknown Unknown Active Unk nown History and physical note * Vy Leo MD: MODIFY, MODIFY, PERFORM Event Display: History and Physical Hospital Authored Date: Patient: ??INNA MACIAS ? Age:??78 Years?Sex:??Female?:??1945?? History of Present Illness Inna Shcaefer is an 78-year-old female who presented today for periurethral bulking procedure with Bulkamid injection for her history of stress urinary incontinence and intrinsic sphincter deficiency. On presentation for surgery, her vitals were stable and she was in sinus rhythm. During surgery, she was given propofol and fentanyl for anesthesia and received 1 L IV fluids.??The patient's procedure was brief and uncomplicated. ?? Postoperatively, the patient was tachycardic and hypotensive with BP of 80s/50s and MAP of??55. EKG was performed and the patient was found to be in A- fib with RVR, with a??maximum heart rate of??138 bpm. During this episode, the patient was mentating well and was otherwise asymptomatic. She wasgiven a bolus of phenylephrine 160mcg and started on 1 L IV fluids (second bag) with some improvement in her BP. The patient remained in Afib and Cardiology was contacted for an urgent consult. ?? Of note, the patient denied any history of palpitations, heart skipping a beat, lightheadedness,or shortness of breath. ?? PMH: -insulin-dependent type 2 diabetes chronic kidney disease stage III -COPD -endometrial cancer s/p NICOLAS -hyperlipidemia -hypertension Review of Systems Per HPI Physical Exam Vitals & Measurements T:??97.9?F?? HR:??79??(Peripheral)?? RR:??20?? BP:??92/59?? SpO2:??100%?? HT:??159??cm?? WT:??81.1??kg?? BMI:??34.02?? Constitutional:??Patient awake, resting comfortably in bed. Respiratory:??Normal work of breathing, no respiratory distress. Cardiovascular:??Irregular heart rate. Abdomen/GI:??Soft, non-distended. Neurological/Psychiatric:??Mood and affect congruent and stable, mentating well. Assessment/Plan Assessment:??Inna Schaefer is an 78-year-old female who presented today for periurethral bulking procedure with Bulkamid. Procedure was uncomplicated. The patient was found to be in A-FIB with RVR postoperatively, hypotensive. She received 2L IV fluids, phenylephrine, and??is now s/p cardi ology consult. Her vital signs have improved. Cardiology recommended admission to the medicine service. [facility] ROOM ATTENDANT team spoke with Dr. Bryan Castaneda (internal medicine), who approved admission to medicine service. Patient is now admitted to medicine service for monitoring and possible cardioversion. Gynecology team??following as needed. ?? Atrial fibrillation with RVR (I48.91):? - See Cardiology consult note 07/22 ?? Post-operative state (Z98.890):? -Surgery uncomplicated -Meeting postoperative milestones -Patient voided with PVR<150 ?? Patient discussed with cardiology, internal medicine,??and Dr. Duran (Urogynecology). ?? Vy Leo MD PGY1 ?? OB History History?(0,0,0,0)?No previous pregnancies history have been recorded Active Problem List Active Problem List Abnormal laboratory test: (Medical) T Spot ??Positive ?10/20/2016 Atrial fibrillation with RVR: (Medical) Chronic kidney disease (CKD) stage G3a/A1, moderately decreased glomerular filtration rate (GFR) between 45-59 mL/min/1.73 square meter and albuminuria creatinine ratio less than 30 mg/g: (Medical) COPD (chronic obstructive pulmonary disease): (Medical) Endometrial cancer: (Medical) GERD (gastroesophageal reflux disease): (Medical) Hyperlipemia: (Medical) Knee pain: (Medical) Obese class I: (Medical) Positive 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: (Medical) (10/07/16) Recurrent carcinoma of endometrium: (Medical) Seborrheic keratoses: (Medical) Type 2 diabetes mellitus: (Medical) Procedure/Surgical History Laminectomy for implantation of neurostimulator electrodes, plate/paddle, epidural Status post total hysterectomy and bilateral salpingo-oophorectomy (NICOLAS-BSO) Home Medications Amlodipine: 5 mg = 1 tablet, By Mouth, Daily Ascorbic Acid: By Mouth, Daily Aspirin: 81 mg = 1 tablet, By Mouth, Daily Calcium And Vitamin D Combination: By Mouth dapagliflozin: 10 mg = 1 tablet, By Mouth, Daily Docusate: 100 mg = 1 capsule, By Mouth, 2 times a day, PRN (for constipation) Doxazosin: 4 mg = 1 tablet, By Mouth, Daily dulaglutide: 1.5 mg = 0.5 mL, Subcutaneous Injection, Every week, rotate injection sites. 90 day supply. E 11.9 Durable Medical Equipment Durable Medical Equipment Durable Medical Equipment: See Instructions, scan reader over sensor to check blood sugar 6 times aday. E 11.9 Durable Medical Equipment: See Instructions, scan reader over sensor to check blood sugar 6 times aday. E11.9 Durable Medical Equipment (Freestyle Vik 2 reader) (Freestyle Vik 2 reader): See Instructions, use as directed for DM to check BG 4-5 times per day E11.9 Durable Medical Equipment (Freestyle Vik 2 sensors) (Freestyle Vik 2 sensors): See Instructions, scan reader over sensor 7 times a day check blood sugarschange every 14 days E11.9 Ferrous Sulfate: 325 mg = 1 tablet, By Mouth, 3 times a day Fluticasone: 2 puffs, Inhalation, 2 times a day Furosemide: 40 mg = 1 tablet, By Mouth, Daily Gabapentin: 600 mg = 1 tablet, By Mouth, 3 times a day Insulin Aspart: Subcutaneous Injection, 3 times a day before meals Insulin Glargine: 36 units, Subcutaneous Injection, Daily at bedtime Isosorbide Dinitrate: 30 mg = 1 tablet, By Mouth, 2 times a day Lisinopril: 30 mg = 1 tablet, By Mouth, Daily Magnesium Oxide: 400 mg = 1 tablet, By Mouth, Daily mirabegron: 50 mg = 1 tablet, By Mouth, Daily, do not crush or chew mirabegron: 50 mg = 1 tablet, By Mouth, Daily, do not crush or chew Nystatin Topical: See Instructions, APPLY TO THE AFFECTED AREA(S) TOPICALLY TWICE DAILY Omeprazole: 20 mg = 1 tablet, By Mouth, Daily Rosuvastatin: 20 mg = 1 tablet, By Mouth, Daily at bedtime Senna: 2 TABS, By Mouth, Daily Tramadol: 50 mg = 1 tablet, By Mouth, Every 6 hours Allergies NKA Social History Alcohol Use: Never. Employment/School Status: Retired. Exercise Self assessment: Poor condition. Home/Environment Living situation: Home/Independent. Lives with: Daughter, grandson . Nutrition/Health Diet: Regular. Sexual Sexually involved in last 6 months: No. Substance Abuse Use: Never. Tobacco Former smoker, Tobacco user in household: No. Other: Quit 24 years ago. Type: Cigarettes. Family History Mother: Diabetes mellitus type II; Hypertension * Roger FELIPE, Didi A: PERFORM Event Display: History and Physical Hospital Authored Date: Attending Attestation:??I have seen and evaluated this patient. ??I have discussed the case and itsmanagement with the resident and agree with the findings and plan as documented in the resident???snote. ?? Didi Duran MD [facility] Urogynecology Admission evaluation note * Chemo FELIPE, [facility]: MODIFY, MODIFY, MODIFY, PERFORM, MODIFY Event Display: Admission Note Authored Date: Patient: ??MARGARITA SCHAEFERINNA CARLSON ? Age:??78 Years?Sex:??Female?:??1945?? History of Present Illness This is an 78-year-old female with past medical history of insulin-dependent type 2 diabetes, CKD stage III, COPD, endometrial cancer status post NICOLAS, hyperlipidemia, hypertension who initially presented to undergo periurethral bulking today with gynecology. ?? The surgery itself did not have any complications however postop patient was noted to be hypotensive with maps in the 50s.?? During this time she continued to mentate well however was also noted to have atrial fibrillation with RVR with heart rate in the 130s to 140s.?? She was given phenylephrine push for her blood pressure, 1 L of IV fluids and then blood pressure subsequently improved to 120 systolic.?? During this time she never had any complaints including chest pain, shortness of breath, dizziness.?? Prior to that she denies any history of chest pain, palpitations, CHF or any other cardiac history. ?? Given new onset A-fib cardiology was consulted urgently.?? They evaluated the patient recommending started on metoprolol, apixaban given another bolus and echocardiogram.?? If she does not convertto sinus rhythm we will consider LEXA cardioversion. On presentation to medical floor she is afebrile, hemodynamically stable, heart rate in the 70s to the 80s, MAP more than 65. Review of Systems Full review of systems conducted, negative unless mentioned in the HPI Objective Vital Signs?? Temperature: 97.9 DegF (07/22/23 16:35:00) Temperature Route: Oral (07/22/23 16:35:00) Pulse Rate:??1 bpm??Low (07/22/23 17:52:00) Heart Rate Monitored:??116 bpm??High (07/22/23 14:30:00) Respiratory Rate: 20 br/min (07/22/23 16:35:00) Systolic Blood Pressure: 100 mm Hg (07/22/23 17:52:00) Diastolic Blood Pressure: 60 mm Hg (07/22/23 17:52:00) Blood pressure sites: Arm, left (07/22/23 16:35:00) Mean Arterial Pressure: 70 mm Hg (07/22/23 16:35:00) Pulse Pressure: 33 mm Hg (07/22/23 16:35:00) Oxygen Saturation: 100 % (07/22/23 16:35:00) Liters per Minute: 5 L/min (07/22/23 08:30:00) Mode of Delivery (Oxygen): Room air (07/22/23 16:35:00) Early Warning Score: 5 (07/22/23 17:58:25) ? Physical Exam ?? General Appearance: no acute distress Eyes: AMARIS. No scleral icterus. ENT:?? MM moist. Cardiovascular: RRR S1 and S2 heard with no M/R/G. Respiratory: Clear to auscultation, no wheeze or crackles GI: Soft. Nontender and nondistended. Normal bowel sounds present. no guarding, rigidity MSK:?? No edema or erythema in the lower extremities. Skin: No rashes seen?? Neuro:?? No slurred speech. Moving upper and lower extremities independently Psych: oriented x3. Lines: Peripheral IV in place. Assessment/Plan ??This is an 78-year-old female with past medical history of insulin-dependent type 2 diabetes, CKDstage III, COPD, endometrial cancer status post NICOLAS, hyperlipidemia, hypertension who initially presented to undergo periurethral bulking today with gynecology.?? Postop course complicated by hypertension, new onset atrial fibrillation with RVR for which cardiology was consulted and patient was transferred to medicine. ? Atrial fibrillation with RVR Came in for her surgery??for urethral bulking, postop developed mild hypotension, A-fib with RVR Cards evaluated, recommended beta-miguelito, anticoagulation. Patient has been asymptomatic throughout Plan -Continue media monitor -Continue metoprolol XL -Started on apixaban -Goal heart rate less than 110 -Cardiology following appreciate recommendations - If patient does not convert to sinus rhythm, they will refer to LEXA cardioversion. -Echo ordered ?? Status post periurethral bulking Has a history of stress incontinence, came in for elective periurethral bulking?? Plan Surgery uncomplicated, per CA[facility] ROOM ATTENDANT meeting postoperative milestones. ? Chronic medical conditions Hypertension: Continue amlodipine Type 2 diabetes:??Hold p.o. meds, Trulicity. ??Continue insulin sliding scale and home Lantus 30 units daily Hyperlipidemia: Continue Crestor GERD: Omeprazole nonformulary, continue pantoprazole. Chronic pain: Continue tramadol, gabapentin ?? Quality measures Code: full Diet: cardiac, carb controlled DVT prophylaxis: on apixaban ?? Twila Mclain [id number] ? Histories Allergies Allergies ?(Active and Proposed Allergies Only) NKA? (Severity: Unknown severity, Onset: Unknown) ? Past Medical History/Problem List Active Problems??(13) Abnormal laboratory test Atrial fibrillation with RVR Chronic kidney disease (CKD) stage G3a/A1, moderately decreased glomerular filtration rate (GFR) between 45-59 mL/min/1.73 square meter and albuminuria creatinine ratio less than 30 mg/g COPD (chronic obstructive pulmonary disease) Endometrial cancer GERD (gastroesophageal reflux disease) Hyperlipemia Knee pain Obese class I Positive PPD ??20 mm Recurrent carcinoma of endometrium Seborrheic keratoses Type 2 diabetes mellitus ? Past Surgical History Laminectomy for implantation of neurostimulator electrodes, plate/paddle, epidural Status post total hysterectomy and bilateral salpingo-oophorectomy (NICOLAS-BSO) ? Social History Alcohol Details:??Use: Never. Employment/School Details:??Status: Retired. Exercise Details:??Self assessment: Poor condition. Home/Environment Details:??Living situation: Home/Independent. ??Lives with: Daughter, grandson . Nutrition/Health Details:??Diet: Regular. Sexual Details:??Sexually involved in last 6 months: No. Substance Abuse Details:??Use: Never. Tobacco Details:??Former smoker, Tobacco user in household: No. ??Other: Quit 24 years ago. ??Type: Cigarettes. ? Family History Mother: Diabetes mellitus type II; Hypertension ? Medications Home Medications Amlodipine (amLODIPine 5 mg oral tablet)?5?Milligram?1?tablet?By Mouth?Daily Ascorbic Acid (Vitamin C)?By Mouth?Daily Aspirin (aspirin 81 mg oral tablet)?1?tab(s)?81?Milligram?By Mouth?Daily Calcium And Vitamin D Combination (Calcium 600 +D)?By Mouth dapagliflozin (Farxiga 10 mg oral tablet)?1?tab(s)?10?Milligram?By Mouth?Daily Doxazosin (doxazosin 4 mg oral tablet)?1?tab(s)?4?Milligram?By Mouth?Daily dulaglutide (Trulicity Pen 1.5 mg/0.5 mL subcutaneous solution)?0.5?Milliliter?1.5?Milligram?Subcutaneous Injection?Every week?rotate injection sites. 90 day supply. E 11.9 Ferrous Sulfate (ferrous sulfate 325 mg oral tablet)?1?tab(s)?325?Milligram?By Mouth?3 times a day Furosemide (furosemide 40 mg oral tablet)?40?Milligram?1?tablet?By Mouth?Daily Gabapentin (gabapentin 600 mg oral tablet)?1?tab(s)?600?Milligram?By Mouth?3 times a day Insulin Aspart (NovoLOG FlexPen 100 units/mL subcutaneous solution)?Subcutaneous Injection?3 times a day before meals Insulin Glargine (Lantus Solostar Pen 100 units/mL subcutaneous solution)?30?unit(s)?Subcutaneous Injection?Daily at bedtime Isosorbide Mononitrate (Imdur 30 mg oral tablet, extended release)?1?tablet?By Mouth?Daily in AM Lisinopril (lisinopril 30 mg oral tablet)?1?tab(s)?30?Milligram?By Mouth?Daily Magnesium Oxide (magnesium oxide 400 mg oral tablet)?1?tab(s)?400?Milligram?By Mouth?Daily mirabegron (mirabegron 50 mg oral tablet, extended release)?1?tab(s)?50?Milligram?ByMouth?Daily?do not crush or chew Omeprazole (omeprazole 20 mg oral delayed release tablet)?1?tab(s)?20?Milligram?By Mouth?Daily Rosuvastatin (Crestor 20 mg oral tablet)?1?tab(s)?20?Milligram?By Mouth?Daily at bedtime Tramadol (traMADol 50 mg oral tablet)?1?tab(s)?50?Milligram?By Mouth?Daily?as needed?Pain , Severe ? Results Recent Labs BLOOD COUNT & DIFF Hemoglobin (POC) POC Cartridge 12.2 Gm/dL ()?? 07/22/2023 07:27 Hematocrit (POC) POC Cartridge 36 % ()?? 07/22/2023 07:27 ?? CHEM GENERAL Sodium (POC) POC Cartridge 142 mmol/L ()?? 07/22/2023 07:27 Potassium (POC) POC Cartridge 4.0 mmol/L ()?? 07/22/2023 07:27 Chloride (POC) POC Cartridge 102 mmol/L ()?? 07/22/2023 07:27 Glucose (POC) POC Cartridge 118 (High)?? 07/22/2023 07:27 Glucose, POC 127 mg/dL (High)?? 07/22/2023 07:01 BUN (POC) POC Cartridge 24 mg/dL (High)?? 07/22/2023 07:27 Creatinine (POC) POC Cartridge 1.2 mg/dL (High)?? 07/22/2023 07:27 Ionized Calcium (POC) POC Cartridge 1.28 mmol/L ()?? 07/22/2023 07:27 ? US Heart * Event Display: Echocardiogram - Complete Authored Date: [id number] Transthoracic Echocardiography Report (TTE) Patient Demographics Patient Name MARGARITA SCHAEFER, Date of Study 07/23/2023 INNA Rivera Gender Female Facility Race Ethnicity or Date of 1945 Height: 61.02 inches Age 78 year(s) Weight: 189.6 pounds Accession Number [id number] BSA: 1.85 m2 Room Number [id number] BMI: 35.8 kg/m2 Referring Physician Jennifer Blas MD Interpreting Evita Sevilla MD Physician Accident Examiner Odalis DANIEL Indications Atrial fibrillation. Clinical History Atrial fibrillation. COPD CKD Hyperlipidemia. Obesity. Diabetes Mellitus. Study Data Type of Study TTE procedure:Echo Complete-Doppler, Colorflow, M-Mode. Study Date07/23/2023 Start Time: 08:39 AM Study Location: [facility] [place] Echo Study Status: Echo lab Patient Status: Routine Technical Quality: Fair due to body habitus. Blood Pressure:130/47 mmHg EKG: Normal sinus rhythm HR: 66 bpm 2D Measurements LV Diastolic Dimension: 4 cm LV Systolic Dimension: 3 cm LV Septum Diastolic: 1.5 cm LV PW Diastolic: 1.1 cm LA ESV (BP):60.4 ml LA ESV Index: 33 ml/m2 LVOT Stroke Volume: 64.33 ml LVOT: 1.9 cm Stroke Volume Index34.77 ml/m2 Ascending Aorta:3 cm Cardiac Index:2.3 l/min/m2 Doppler Measurements AV Peak Velocity: 120 cm/s MV Peak E-Wave: 107 cm/s AV Peak Gradient: 5.76 mmHg MV Peak A-Wave: 66 cm/s AV Mean Gradient: 3 mmHg MV E/A Ratio: 1.62 AV VTI:30.2 cm MV P1/2t: 47 msec LVOT Peak Velocity: 97 cm/s LVOT VTI22.7 cm MV Deceleration Time: 160 msec AV Area (Continuity):2.13 cm2 MV Area (PHT): 4.68 cm2 TR Velocity:198 cm/s TR Gradient:15.68 mmHg E' Septal Velocity: 8.49 cm/s E' Lateral Velocity: 6.53 cm/s E/Med E':12.73702 E/Lat E':16.48761 Cardiac Anatomy Left Ventricle/Interventricular Septum The left ventricle is normal in size. Ejection fraction is 55-60%. The basal inferior wall is akinetic. Grade II diastolic dysfunction. Left Atrium/Interatrial Septum The left atrium is mildly dilated. An atrial septal defect cannot be excluded. Aortic Valve No significant regurgitation or stenosis. Mitral Valve Trace regurgitation. There is mitral annular calcification. Gradient increased. Aorta The ascending aorta and aortic root are normal in size when indexed. Right Ventricle The right ventricle is normal in size. Function is preserved. Right Atrium The right atrium is normal in size. Pulmonic Valve No significant regurgitation. Tricuspid Valve Mild regurgitation. Pumonary Artery An accurate pulmonary artery pressure could not be obtained. Venous Structures Poorly visualized. Pericardium/Extracardiac No significant pericardial effusion detected. Summary The left ventricle is normal in size. Ejection fraction is 55-60%. The basal inferior wall is akinetic. Grade II diastolic dysfunction. The left atrium is mildly dilated. The right ventricle is normal in size. Function is preserved. The right atrium is normal in size. Comparison No prior study available for comparison. Signature * Event Display: Echocardiogram - Complete Authored Date: Cardiology * Event Display: Cardiac Rhythm Strips Authored Date: Hospital Progress note * Isamar Roman RN: PERFORM, SIGN, VERIFY Event Display: Progress Note Hospital Authored Date: Patient: INNA MACIAS Age: 78 years Sex: Female : 1945 Associated Diagnoses: None Author: Isamar Roman RN Findings Evaluation Patient being discharged home today. Discharge instructions printed and reviewed with patient by charge nurse. Peripheral IV removed by charge nurse. Pt. accompanied off unit in wheelchair by family.. * Johana Reynaga RN: MODIFY, SIGN, VERIFY, PERFORM Event Display: Progress Note Hospital Authored Date: Patient: INNA MACIAS Age: 78 years Sex: Female : 1945 Associated Diagnoses: None Author: Johana Reynaga RN Findings Problem Related to Alteration in Cardiac Function (new) : Alteration in Cardiac Function/new 07/23/2023 5:00 EDT Alteration in Cardiac Status Related to Other: new afib Goals & Outcomes, Cardiac Status Pt will resume/maintain adequate cardiac output, Pt will resume/maintain adequate hemodynamic status, Pt will resume/maintain adequate respiratory function, Pt will resume/maintain intact neuro function, Pt will maintain adequate GI/ function appropriate for pt, Pt will maintain adequate nutrition status, Pt/caregiver will state understanding of diagnosis, Pt/caregiver will state strategies to reduce risk factors Cardiac Interventions Implemented Assess/monitor cardiac status, Assess/monitor neuro status, Assess/monitor respiratory status, Assess for tolerance of IV infusions; verify rate & dose, Document& Monitor O2 Sats; Administer O2 as ordered, Ensure adequate caloric intake, If no bowel movement in 3 days activate bowel regime, Monitor & document daily weight, Monitor anticoagulation values BH Goals/Interventions, Cardiac Yes Cardiac, Problem Start 07/22/2023 17:04 Reviewed Plan with, Cardiac Status Patient Patient Progression, Cardiac Status Plan Initiation . Nursing Data Vital Signs : VITAL SIGNS SECTION 07/23/2023 4:10 EDT Temperature 98.0 DegF Temperature Route Oral Pulse Rate 62 bpm Respiratory Rate 18 br/min Systolic Blood Pressure 130 mm Hg Diastolic Blood Pressure 47 mm Hg L Blood pressure sites Arm, right Mean Arterial Pressure 75 mm Hg Pulse Pressure 83 mm Hg Oxygen Saturation 98 % Mode of Delivery (Oxygen) Room air . Evaluation pt is A&Ox3. denies chest pain or SOB. pt on tele-NSR. pt denies pain. refused CPAP at night. O2 sat 98% on room air. pt requested 20 units instead of 30 units lantus because she has not been eating much. pt to be NPO after midnight. pt wears dexcom-alarmed at 0130 that blood sugar was low at 66. gave pt 1 cup orange juice and rechecked blood sugar using hospital POC. POC 104. dexcom continued to alert, double checked with POC machine. no s/s hypoglycemia. pt ambulates with cane to bathroom. voiding clear yellow urine without difficulty. safety precautions in place and continuing to monitor.. * Kezia Green: SIGN, MODIFY, PERFORM, SIGN, VERIFY Event Display: Progress Note Hospital Authored Date: [id number] Patient: INNA MACIAS Age: 78 years Sex: Female : 1945 Associated Diagnoses: None Author: Kezia Green Findings Problem Related to Alteration in Cardiac Function (new) : Alteration in Cardiac Function/new 07/22/2023 16:00 EDT Alteration in Cardiac Status Related to Other: new afib Goals & Outcomes, Cardiac Status Pt will resume/maintain adequate cardiac output, Pt will resume/maintain adequate hemodynamic status, Pt will resume/maintain adequate respiratory function, Pt will resume/maintain intact neuro function, Pt will maintain adequate GI/ function appropriate for pt, Pt will maintain adequate nutrition status, Pt/caregiver will state understanding of diagnosis, Pt/caregiver will state strategies to reduce risk factors Cardiac Interventions Implemented Assess/monitor cardiac status, Assess/monitor neuro status, Assess/monitor respiratory status, Assess for tolerance of IV infusions; verify rate & dose, Call/Report variances in ECG to provider, Document & Monitor O2 Sats; Administer O2 as ordered, Ensure adequate caloric intake, If no bowel movement in 3 days activate bowel regime, Monitor & document daily weight, Monitor anticoagulation values, Monitor ECG w/administration of antiarrhythmics (CO 13.420), Obtain 12 Lead ECG and CXR as ordered, Prep pt for treatments & procedures, Teach/encourage deep breath & cough exercises, Teach/encourage use of incentive spirometer, Team conversation regarding appropriate level of care, Turn & reposition Q2 hours per activity restrictions BH Goals/Interventions, Cardiac Yes Cardiac, Problem Start 07/22/2023 17:04 Reviewed Plan with, Cardiac Status Patient Patient Progression, Cardiac Status Plan Initiation . Alteration in Genitourinary : Alteration in Genitourinary Function/new 07/22/2023 16:00 EDT Alteration in Status Related to Other: Urinary Incontinence- cystoscopy Goals & Outcomes, Genitourinary Pt will achieve normal/improved fluid balance, Pt will maintainadequate GI function appropriate for pt, Pt will maintain adequate function appropriate for pt, Pt will maintain normal fluid balance, Pt will resume normal pattern of elimination Interventions, Assess/monitor/maintain Genitourinary status, Assist & encourage pt with meticulous dayna care, Encourage PO fluid intake as allowed by diet BH Goals/Interventions, Genitourinary Yes Genitourinary, Problem Start 07/22/2023 16:53 Reviewed Plan with, Genitourinary Patient Patient Progression, Genitourinary Plan Initiation Genitourinary, Problem Ongoing Yes . Nursing Data Vital Signs : VITAL SIGNS SECTION 07/22/2023 16:46 EDT Early Warning Score 3.00 07/22/2023 16:36 EDT Early Warning Score 3.00 07/22/2023 16:35 EDT Temperature 97.9 DegF Temperature Route Oral Pulse Rate 79 bpm Respiratory Rate 20 br/min Systolic Blood Pressure 92 mm Hg Diastolic Blood Pressure 59 mm Hg Blood pressure sites Arm, left Mean Arterial Pressure 70 mm Hg Pulse Pressure 33 mm Hg Oxygen Saturation 100 % Mode of Delivery (Oxygen) Room air 07/22/2023 16:34 EDT Temperature 97.9 DegF Temperature Route Oral Pulse Rate 79 bpm Respiratory Rate 20 br/min Systolic Blood Pressure 92 mm Hg Diastolic Blood Pressure 59 mm Hg Blood pressure sites Arm, right Mean Arterial Pressure 70 mm Hg Pulse Pressure 33 mm Hg Oxygen Saturation 100 % Mode of Delivery (Oxygen) Room air . Narrative/Incidental Patient arrived from the PACU with granddaughter at bedside. Admission history taken with no issue.patient is Ao/x3, denies any headaches, SOB or chest pain. New afib on media monitor. Lung soundsclear on room air. No edema noted, skin warm to touch, + PP. + BS, abdomen soft round and nontender. last BM 07/22/23. Skin is intact skin checked with Lani Velasco RN. BP soft 92/59 MD paged, no new orders at this time. Safety precaution taken and patient oriented to the room and callbell. Plan of care ongoing. . * Peter Jsoepholiva: PERFORM Event Display: Progress Note Hospital Authored Date: AQUATIC DIRECTOR Yolie Garridobs notified about BP 92/59 and HR of 114 afib on media monitor. Instructed RN to give metoprolol and monitor for signs and symptoms of increased hypotension. No signs or symptoms noted at this time. Consult note * Roopa FELIPE, Jennifer Soriano: MODIFY, PERFORM, MODIFY Event Display: Consultation Note Authored Date: Patient: ??INNA MACIAS ? Age:??78 Years?Sex:??Female?:??1945?? Indication for Consult Reason for consult: Atrial fibrillation Consult requested by: Dr. Ibanez Consulted physician:??Dr. Ashley History of Present Illness/Interval History This is an 78-year-old female with past medical history of insulin-dependent type 2 diabetes, chronic kidney disease stage III, COPD, endometrial cancer s/p NICOLAS hyperlipidemia, hypertension. She was here today for Periurethral bulking with Bulkamid.?? After the surgery patient was hypotensive with MAP 55.?? She was mentating well.?? During the surgery she was on propofol drip, fentanyl.?? Patientwas in A-fib with RVR maximum heart rate 138. ?? She was given phenylephrine push and 1 L IV fluid. ??Her blood pressure improved to 120 systolic. ??Patient is denying any symptoms. ??She never had A-fib or any cardiac disease. ??She never had palpitations at home or chest pain or shortness of breath.?? Not having any episodes of dizziness or syncope.?? When I saw the patient she was mentating well??denying any symptoms.?? Heart rate was ranging between 100-130 ?? Patient is getting another IV??fluid bolus.?? No previous history of bleeding??or stroke. Review of Systems Pertinent positives as per the HPI. All other systems were reviewed and were negative ? Physical Exam Vitals & Measurements T:??97.5?F?? HR:??114??(Monitored)?? RR:??18?? BP:??92/42?? SpO2:??97%?? WT:??86.0??kg?? Weight lb/oz: 189 lb 10 oz General: In no acute distress HEENT: Sclerae anicteric Cardiovascular: Regular rhythm, normal first and second heart sounds. No Murmur . No JVP Respiratory: Clear to auscultation all lung lara GI: Normoactive bowel sounds, soft Extremities: Warm, no edema Neuro: Nonfocal? Assessment/Plan This is an 78-year-old female with past medical history of insulin-dependent type 2 diabetes, chronic kidney disease stage III, COPD, endometrial cancer s/p NICOLAS hyperlipidemia, hypertension. She was here today for Periurethral bulking with Bulkamid.?? After the surgery patient was hypotensive with MAP 55.?? She was mentating well.?? During the surgery she was on propofol drip, fentanyl.?? Patientwas in A-fib with RVR maximum heart rate 138. improved on IV fluid. ??She does not have??history ofA-fib and she was in sinus before the surgery. ??Patient blood pressure improved with IV fluid??andanticipated to improve more after the sedation medications wean off her system.?? She does not haveany history of cardiac disease and denied having any history of??palpitations or A- fib.?? However??it is hard to know if the patient has paroxysmal A-fib in the past and she was asymptomatic. ?? Recommendations Start metoprolol 25 mg daily XL. Start apixaban 5 mg twice daily LR 1L bolus Echocardiogram ordered If she does not convert tomorrow??to sinus rhythm, ??will??refer to LEXA cardioversion ? Thank you for allowing us to participate in the care of your patient. Please feel free to page the cardiology consult pager [phone] with questions. ?? Patient discussed with attending physician ?[place] Allergies NKA Home Medications Amlodipine: 5 mg = 1 tablet, By Mouth, Daily Ascorbic Acid: By Mouth, Daily Aspirin: 81 mg = 1 tablet, By Mouth, Daily Calcium And Vitamin D Combination: By Mouth dapagliflozin: 10 mg = 1 tablet, By Mouth, Daily Docusate: 100 mg = 1 capsule, By Mouth, 2 times a day, PRN (for constipation) Doxazosin: 4 mg = 1 tablet, By Mouth, Daily dulaglutide: 1.5 mg = 0.5 mL, Subcutaneous Injection, Every week, rotate injection sites. 90 day supply. E 11.9 Durable Medical Equipment Durable Medical Equipment Durable Medical Equipment: See Instructions, scan reader over sensor to check blood sugar 6 times aday. E 11.9 Durable Medical Equipment: See Instructions, scan reader over sensor to check blood sugar 6 times aday. E11.9 Durable Medical Equipment (Freestyle Vik 2 reader) (Freestyle Vik 2 reader): See Instructions, use as directed for DM to check BG 4-5 times per day E11.9 Durable Medical Equipment (Freestyle Vik 2 sensors) (Freestyle Vik 2 sensors): See Instructions, scan reader over sensor 7 times a day check blood sugarschange every 14 days E11.9 Ferrous Sulfate: 325 mg = 1 tablet, By Mouth, 3 times a day Fluticasone: 2 puffs, Inhalation, 2 times a day Furosemide: 40 mg = 1 tablet, By Mouth, Daily Gabapentin: 600 mg = 1 tablet, By Mouth, 3 times a day Insulin Aspart: Subcutaneous Injection, 3 times a day before meals Insulin Glargine: 36 units, Subcutaneous Injection, Daily at bedtime Isosorbide Dinitrate: 30 mg = 1 tablet, By Mouth, 2 times a day Lisinopril: 30 mg = 1 tablet, By Mouth, Daily Magnesium Oxide: 400 mg = 1 tablet, By Mouth, Daily mirabegron: 50 mg = 1 tablet, By Mouth, Daily, do not crush or chew mirabegron: 50 mg = 1 tablet, By Mouth, Daily, do not crush or chew Nystatin Topical: See Instructions, APPLY TO THE AFFECTED AREA(S) TOPICALLY TWICE DAILY Omeprazole: 20 mg = 1 tablet, By Mouth, Daily Rosuvastatin: 20 mg = 1 tablet, By Mouth, Daily at bedtime Senna: 2 TABS, By Mouth, Daily Tramadol: 50 mg = 1 tablet, By Mouth, Every 6 hours Hospital Medications Medications (7) Active SCHEDULED: (1) CeFAZolin 2 Gm Inj (ceFAZolin Inj) ??2 Gm, IV Push, Once CONTINUOUS: (2) Lactated Ringers (1000 mL) Cont IV 1,000 mL (LR 1,000 mL) ??1,000 mL, IV Infusion, 125 mL/hr PHENYLephrine 20mg / 250mL NaCL 20 mg (PHENYLephrine 20 mg / NaCL 250 mL 20 mg) ??20 mg 250 mL, IV Infusion PRN: (4) FENTanyl 50 mcg/mL Inj (2 mL) (Fentanyl Inj (PACU ONLY)) ??25 mcg 0.5 mL, IV Push Slowly, Every 5 minutes Haloperidol Lactate 5 mg/mL Inj (1 mL) (Haloperidol LACTATE Inj (PACU ONLY)) ??1 mg 0.2 mL, IV Push, Once nalOXONE ??400mcg/mL Inj (nalOXONE Inj) ??0.04 mg 0.1 mL, IV Push, Every 5 minutes OxyCODONE 5 mg IR Tablet (Oxycodone 5mg Oral Tablet (PACU ONLY)) ??5 mg, By Mouth, Once Lab Results Cardiology Labs WBC: 7.6 k/mm3 (07/10/23) RBC: 5.07 m/mm3 (07/10/23) Hgb: 11.8 Gm/dL (07/10/23) Hct: 40.6 % (07/10/23) MCV: 80.1 femtoliters (07/10/23) MCH:??23.3 pg??Low (07/10/23) MCHC:??29.1 g/dL??Low (07/10/23) Platelet Count: 172 k/mm3 (07/10/23) RDW-SD: 43.3 femtoliters (07/10/23) Nucleated RBC (Automated): 0 #/100 WBC'S (07/10/23) Creatinine-Blood:??1.3 mg/dL??High (07/10/23) Problem List/Past Medical History Ongoing Abnormal laboratory test Chronic kidney disease (CKD) stage G3a/A1, moderately decreased glomerular filtration rate (GFR) between 45-59 mL/min/1.73 square meter and albuminuria creatinine ratio less than 30 mg/g COPD (chronic obstructive pulmonary disease) Endometrial cancer GERD (gastroesophageal reflux disease) Hyperlipemia Knee pain 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 Employment/School Status: Retired. Exercise Self assessment: Poor condition. Home/Environment Living situation: Home/Independent. Lives with: Daughter, grandson . Nutrition/Health Diet: Regular. Sexual Sexually involved in last 6 months: No. Substance Abuse Use: Never. Tobacco Former smoker, Tobacco user in household: No. Other: Quit 24 years ago. Type: Cigarettes. Family History Mother: Diabetes mellitus type II; Hypertension * Dion FELIPE, Oswaldo Granado: PERFORM Event Display: Consultation Note Authored Date: I have seen and examined??INNA SCHAEFER??today with the house staff.?? I agree with the diagnosis, assessment, and treatment plan outlined with any additions and modifications below. ?? 78F w/ HTN, HL, pre-DM.?? Admitted for urethral surgery for urinary incontinence, course c/b new AF/RVR. ?? - anticoagulation:?? apixaban 5 BID - rate control:?? metoprolol succinate 50 - if pt does not convert spontaneously, plan LEXA/DCCV prior to discharge - outpatient Zio patch XT to determine AF burden ?? Oswaldo Ashley MD, MS, FACC, [facility], FSVM, RPVI Director, Cardiac Catheterization Stove Cleaner, Cardiovascular Clinical Research [facility] Cell:?? [email or web address]:?? Fax:?? [address] [place] [address] * Hang Ibanez MD: PERFORM, SIGN, VERIFY Event Display: Consultation Note Authored Date: Patient: INNA MACIAS Age: 78 years Sex: Female : 1945 Associated Diagnoses: None Author: Hang Ibanez MD Plan Patient with new onsent afib after procedure today, mentating well, recent MAP is 55, bolused phenylephrine 160 mcg, infusion ordered, cardiology consulted and primary Aeronautical Engineering Officer team, engaged. Note * Isamar Roman RN: PERFORM Event Display: Discharge/Transfer Note Hospital Authored Date: [id number] Nursing Discharge Note Entered On: 07/23/2023 14:33 EDT Performed On: 07/23/2023 14:32 EDT by Isamar Roman RN Nursing Discharge Note 2 Discharge Time : 07/23/2023 14:32 EDT Discharge Level of Care at Discharge : Home/Penitentiary/Foster Care Patient Left Unit Via : Wheelchair Patient Accompanied Off Unit with : Responsible adult DC Instructions Provided & Signed by Pt : Yes Patient Understands D/C Instructions : Yes Patient Instructions Discharge Signed : Yes Did Pt have Specialty Bed or Wound Vac : No Isamar Roman RN - 07/23/2023 14:32 EDT * Aaron Negro II: PERFORM Event Display: Discharge/Transfer Note Hospital Authored Date: [id number] Patient: ??INNA MACIAS ? Age:??78 Years?Sex:??Female?:??1945?? Patient Information Discharge Location: Primary Care Physician: Hazel Kilgore MD Admit Date/Time: 07/22/23 14:33 Discharge Disposition Discharge Disposition: Home: No Services Discharge Diagnosis Atrial fibrillation with RVR (I48.91) Hypotension (I95.9) LESLEY (stress urinary incontinence, female) (N39.3) Post-operative state (Z98.890) ?? _ Discharge Medications Amlodipine (amLODIPine 5 mg oral tablet)?5?Milligram?1?tablet?By Mouth?Daily apixaban (apixaban 5 mg oral tablet)?5?Milligram?By Mouth?2 times a day Ascorbic Acid (Vitamin C)?By Mouth?Daily Aspirin (aspirin 81 mg oral tablet)?1?tab(s)?81?Milligram?By Mouth?Daily Calcium And Vitamin D Combination (Calcium 600 +D)?By Mouth dapagliflozin (Farxiga 10 mg oral tablet)?1?tab(s)?10?Milligram?By Mouth?Daily Doxazosin (doxazosin 4 mg oral tablet)?1?tab(s)?4?Milligram?By Mouth?Daily dulaglutide (Trulicity Pen 1.5 mg/0.5 mL subcutaneous solution)?0.5?Milliliter?1.5?Milligram?Subcutaneous Injection?Every week?rotate injection sites. 90 day supply. E 11.9 Ferrous Sulfate (ferrous sulfate 325 mg oral tablet)?1?tab(s)?325?Milligram?By Mouth?3 times a day Furosemide (furosemide 40 mg oral tablet)?40?Milligram?1?tablet?By Mouth?Daily Gabapentin (gabapentin 600 mg oral tablet)?1?tab(s)?600?Milligram?By Mouth?3 times a day Insulin Aspart (NovoLOG FlexPen 100 units/mL subcutaneous solution)?Subcutaneous Injection?3 times a day before meals Insulin Glargine (Lantus Solostar Pen 100 units/mL subcutaneous solution)?30?unit(s)?Subcutaneous Injection?Daily at bedtime Isosorbide Mononitrate (Imdur 30 mg oral tablet, extended release)?1?tablet?By Mouth?Daily in AM Lisinopril (lisinopril 30 mg oral tablet)?1?tab(s)?30?Milligram?By Mouth?Daily Magnesium Oxide (magnesium oxide 400 mg oral tablet)?1?tab(s)?400?Milligram?By Mouth?Daily Metoprolol (metoprolol 25 mg oral tablet, extended release)?25?Milligram?By Mouth?Daily mirabegron (mirabegron 50 mg oral tablet, extended release)?1?tab(s)?50?Milligram?ByMouth?Daily?do not crush or chew Omeprazole (omeprazole 20 mg oral delayed release tablet)?1?tab(s)?20?Milligram?By Mouth?Daily Rosuvastatin (Crestor 20 mg oral tablet)?1?tab(s)?20?Milligram?By Mouth?Daily at bedtime Tramadol (traMADol 50 mg oral tablet)?1?tab(s)?50?Milligram?By Mouth?Daily?as needed?Pain , Severe ? Medications Started apixaban (apixaban 5 mg oral tablet)?5?Milligram?By Mouth?2 times a day Metoprolol (metoprolol 25 mg oral tablet, extended release)?25?Milligram?By Mouth?Daily Allergies Allergies ?(Active and Proposed Allergies Only) NKA? (Severity: Unknown severity, Onset: Unknown) ? Future Appointments Thursday 11:20 AM EDT ?? With: Roger FELIPE, Didi Lai Where: [facility] [address] [place] [address]- Status: Pending Thursday 4:30 PM EDT ?? With: Roopa FELIPE, Jennifer Soriano Where: [facility] [address] [facility] [address] [place] [address]- Status: Pending 2022 10:05 AM EST ?? With: Sixto Grimm MD Where: [facility] [place] [address]- Status: Pending Hospital Course 78-year-old female with history of CKD stage III AA, COPD, dyslipidemia, GERD, diabetes mellitus type 2, endometrial cancer status post NICOLAS was initially admitted for periurethral bulking procedure for stress induced incontinence with gynecology. Post-op patient was noted to be hypotensive with newonset atrial fibrillation with RVR and was transferred to medicine service. She was treated with 1 L IVF bolus, phenylephrine and cardiology was consulted. She was started on metoprolol, apixaban andgiven an additional IVF bolus. She converted to normal sinus rhythm and has remained in NSR since. She underwent 2D echo with results included. Plan is to discharge home on Metoprolol and Eliquis, follow up with Cardiology on??09/09 at 4:30pm with Dr Blas. She will be set up with a media monitor to evaluate for atrial fibrillation burden. She is also to follow up with gynecology. ?? Objective ? Atrial fibrillation with RVR (I48.91):? New onset. Currently on metoprolol succinate 25 mg daily and apixaban 5 mg BID. ?? Hypotension (I95.9):? In the setting of atrial fibrillation with RVR. Responded well to IVF boluses. ?? LESLEY (stress urinary incontinence, female) (N39.3) Post-operative state (Z98.890):? Underwent periurethral bulking procedure. Continue to follow up with CAUSTIC ROOM ATTENDANT. ? Vital Signs?? Temperature: 98.1 DegF (07/23/23 07:29:00) Temperature Route: Oral (07/23/23 07:29:00) Pulse Rate: 61 bpm (07/23/23 09:27:00) Heart Rate Monitored:??116 bpm??High (07/22/23 14:30:00) Respiratory Rate: 18 br/min (07/23/23 10:27:00) Systolic Blood Pressure:??143 mm Hg??High (07/23/23 09:27:00) Systolic Blood Pressure:??143 mm Hg??High (07/23/23 09:27:00) Systolic Blood Pressure:??143 mm Hg??High (07/23/23 09:27:00) Diastolic Blood Pressure:??50 mm Hg??Low (07/23/23 09:27:00) Diastolic Blood Pressure:??50 mm Hg??Low (07/23/23 09:27:00) Diastolic Blood Pressure:??50 mm Hg??Low (07/23/23 09:27:00) Blood pressure sites: Arm, left (07/23/23 07:29:00) Mean Arterial Pressure: 72 mm Hg (07/23/23 07:29:00) Pulse Pressure: 79 mm Hg (07/23/23 07:29:00) Oxygen Saturation: 95 % (07/23/23 07:29:00) Mode of Delivery (Oxygen): Room air (07/23/23 07:29:00) Early Warning Score: 5 (07/23/23 11:19:15) ? . Physical Exam Constitutional: Alert, in no distress. Mental Status: Oriented to person, place and time. Respiratory: Clear to auscultation. No wheezing, rales or rhonchi. Cardiovascular: Regular rate and rhythm, no murmurs, rubs or gallops. Abdomen: Soft, non-tender, non-distended.??Normal bowel sounds. Skin: No rashes or lesions. Psychiatric: Normal mood and affect. Extremities: No edema. Surgical Procedures Cystoscopy with Transurethral Injection 07/22/2023 07:52 Consultants CAUSTIC ROOM ATTENDANT Cardiology Follow-Up Appointments Added Follow Up ?Time Frame ?Comments Magui FELIPE , Hazel Soriano Post Discharge Care Discharge ?Home, ??07/23/23 11:33:00 EDT Discharge Prescriptions ?ePrescribed, ??07/23/23 11:33:00 EDT Home Health Face to Face ^HomeHealthFTF Results Discharge Labs BLOOD COUNT & DIFF WBC 7.1 k/mm3 ()?? 07/23/2023 01:23 RBC 4.67 m/mm3 ()?? 07/23/2023 01:23 Hgb 10.9 Gm/dL (Low)?? 07/23/2023 01:23 Hct 37.7 % ()?? 07/23/2023 01:23 MCV 80.7 femtoliters ()?? 07/23/2023 01:23 MCH 23.3 pg (Low)?? 07/23/2023 01:23 MCHC 28.9 g/dL (Low)?? 07/23/2023 01:23 Platelet Count 141 k/mm3 (Low)?? 07/23/2023 01:23 RDW-SD 43.8 femtoliters ()?? 07/23/2023 01:23 MPV 10.9 femtoliters ()?? 07/23/2023 01:23 Nucleated RBC (Automated) 0.0 #/100 WBC'S ()?? 07/23/2023 01:23 Abs. NRBC 0.0 k/mm3 ()?? 07/23/2023 01:23 Hemoglobin (POC) POC Cartridge 12.2 Gm/dL ()?? 07/22/2023 07:27 Hematocrit (POC) POC Cartridge 36 % ()?? 07/22/2023 07:27 ?? CHEM GENERAL Sodium 142 mmol/L ()?? 07/23/2023 01:23 Potassium 4.5 mmol/L ()?? 07/23/2023 01:23 Chloride 104 mmol/L ()?? 07/23/2023 01:23 Bicarbonate Level 29 mmol/L ()?? 07/23/2023 01:23 Anion Gap 9 ()?? 07/23/2023 01:23 Sodium (POC) POC Cartridge 142 mmol/L ()?? 07/22/2023 07:27 Potassium (POC) POC Cartridge 4.0 mmol/L ()?? 07/22/2023 07:27 Chloride (POC) POC Cartridge 102 mmol/L ()?? 07/22/2023 07:27 Glucose Level 85 mg/dL ()?? 07/23/2023 01:23 Glucose (POC) POC Cartridge 118 (High)?? 07/22/2023 07:27 Glucose, POC 87 mg/dL ()?? 07/23/2023 11:17 BUN 18 mg/dL ()?? 07/23/2023 01:23 BUN (POC) POC Cartridge 24 mg/dL (High)?? 07/22/2023 07:27 Creatinine-Blood 1.0 mg/dL ()?? 07/23/2023 01:23 Creatinine (POC) POC Cartridge 1.2 mg/dL (High)?? 07/22/2023 07:27 Estimated GFR Creatinine 57 ML/MIN/1.73 M2 ()?? 07/23/2023 01:23 Calcium 9.2 mg/dL ()?? 07/23/2023 01:23 Ionized Calcium (POC) POC Cartridge 1.28 mmol/L ()?? 07/22/2023 07:27 ?? URINE OTHER Est Creatinine Clearance 36.46 mL/min ()?? 07/23/2023 03:58 ? Imaging(s) ?Echocardiogram - Complete ?? 07/23/2023 08:39??by Di FELIPE, Evita N ?Summary ??The left ventricle is normal in size. Ejection fraction is 55-60%. The basal ??inferior wall is akinetic. Grade II diastolic dysfunction. ?? The left atrium is mildly dilated. ?? The right ventricle is normal in size. Function is preserved. ?? The right atrium is normal in size. ?? Comparison ??No prior study available for comparison. ? I spent a total of??39 minutes today reviewing the chart/medical records, speaking with the patient, formulating and discussing the treatment plan and documenting the findings and encounter. Discussed plan with patient, nursing, cardiology. ?? Aaron Garcia II [facility] Pager #[phone] or Chestert * Abel TOMPKINS, Isamar: PERFORM Event Display: Patient Education/Instruction Authored Date: Inpatient Adult Discharge Instructions [address] [id number] Name: INNA SCHAEFER : 1945 Visit: 07/22/2023 14:33:00 Current Date: 07/23/2023 12:26 Account: [id number] Inpatient Adult Discharge Instructions We would like to thank you for allowing us to assist you with your healthcare needs. The following includes patient education materials and information regarding your injury/illness. Our entire staffstrives to provide an excellent experience for our patients and their families. PLEASE ENSURE YOU FOLLOW-UP PER THE INSTRUCTIONS BELOW! ?? YOUR OPINION IS IMPORTANT TO US! Please complete the survey you may receive by mail or email. Your feedback will be used to make improvements to the healthcare experiences of our patients and their families. Surveys are administered by [employer]. ?? If further treatment with your primary care physician or another doctor is recommended, it is important for you to keep the appointment. Call your primary care physician or return to the Emergency Department immediately if your condition worsens, fails to improve, or new symptoms develop. If you need to find a doctor, you can call [facility] for a referral at [phone] or toll free at [phone] or log in to [email or web address].. ?? [facility], in keeping with [facility] guidance, no longer requires face masks for staff, patientsor visitors in most situations. Similiar to time spent indoors at other locations, there is the chance that you were exposed to repiratory viruses during your time with us (such as flu or COVID-19). If you develop symptoms concerning for a viral respiratory infection, please seek testing (and treatment if indicated) from your medical provider or home test kit. ?? You can view and manage your care through the patient portal or by using a health care france of your choosing. [employer] is a website that allows you to securely view your medical information including your hospital discharge summary, office visit summaries, medications and follow-up visits. You can also request appointments, renew medications, and request access to your medical information using a health care france of your choosing, or just ask a question. You can enroll at [email or web address] or register during your next office visit. You have been discharged from [facility], Patient Care Unit: W3. If you have any questions regarding these instructions after you leave, please call us and we will be happy to assist you. [facility] Your Care Team Attending Physician Koffi FELIEP, Cam Consulting Providers Shamar FELIPE, Hang Fuentes Discharging Providers Jose WHITING, Aaron Simon Reason for Admission MIXED URINARY INCONTINENCE CS DS Your Diagnosis Post-operative state Atrial fibrillation with RVR Hypotension LESLEY (stress urinary incontinence, female) Tests Performed Below is a partial list of the tests performed during your hospitalization. You may have had other tests and procedures not included in this list. Please discuss all test results with your provider. Basic Metabolic Panel BUN POC CARTRIDGE CALCIUM IONIZED POC CART CBC CHLORIDE POC CARTRIDGE CREATININE POC CARTRIDGE GLUCOSE POC GLUCOSE POC CARTRIDGE HEMATOCRIT POC CARTRIDGE HEMOGLOBIN POC CARTRIDGE MAGNESIUM POTASSIUM POC CARTRIDGE SODIUM POC CARTRIDGE THYROID PANEL Primary Care Provider Hazel Kilgore MD Advance Directive Health Care Proxy on File No Patient refuses to discuss Discharge Vitals Temperature: 97.9 DegF Height: 159 cm Pulse Rate: 59 bpm Weight: 81.1 kg Respiratory Rate: 18 br/min Body Mass Index:??34.02 kg/m2??Critical Systolic Blood Pressure: 118 mm Hg Body surface area: 1.95 Diastolic Blood Pressure: 57 mm Hg ?? Oxygen Saturation: 98 % ?? Studies Pending All tests and labs ordered during this hospital stay have been completed unless listed below. Please discuss all pending results with your provider listed above in these instructions. ?? Add On Lab Order What to do next Instructions From Your Doctor Discharge Orders Scheduled Follow-Up Appointments Thursday 11:20 AM EDT ?? With: Didi Duran MD Where: [facility] [address] [address]- Status: Pending Thursday 4:30 PM EDT ?? With: Jennifer Blas MD Where: [facility] [address] [address]- Status: Pending 2022 10:05 AM EST ?? With: Sixto Grimm MD Where: [facility] [address] [place] [address]- Status: Pending You Need to Schedule the Following Appointments Follow Up with??Hazel Kilgore MD Where: [address] [facility] [address] [place] [address]- Discharge Medications INNA MACIAS :1945 Visit Date:07/22/2023 Medications: Please continue your medications until treatment is completed or stopped by your provider. Medications not listed below should be discontinued. Discuss any questions related to medications with your provider. What How Much When Why Instructions Next Dose New apixaban (apixaban 5 mg oral tablet) 5 Milligram Oral Twice a day Pickup at [facility] 9pm tonight New Metoprolol (metoprolol 25 mg oral tablet, extended release) 25 Milligram Oral Daily Pickup at [facility] 9am tomorrow Changed mirabegron (mirabegron 50 mg oral tablet, extended release) 1 tab(s) Oral Daily do not crush or chew ?? as prescribed, not given Unchanged Amlodipine (amLODIPine 5 mg oral tablet) 1 tab(s) Oral Daily 9am tomorrow Unchanged Ascorbic Acid (Vitamin C) Oral Daily as prescribed, not given Unchanged Aspirin (aspirin 81 mg oral tablet) 1 tab(s) Oral Daily as prescribed, not given Unchanged Calcium And Vitamin D Combination (Calcium 600 +D) Oral as prescribed, not given Unchanged dapagliflozin (Farxiga 10 mg oral tablet) 1 tab(s) Oral Daily as prescribed, not given Unchanged Doxazosin (doxazosin 4 mg oral tablet) 1 tab(s) Oral Daily 9am tomorrow Unchanged dulaglutide (Trulicity Pen 1.5 mg/ 0.5 mL subcutaneous solution) 0.5 Milliliter Subcutaneous Injection Every week T2DM (type 2 diabetes mellitus) rotate injection sites. 90 day supply. E 11.9 ?? as prescribed, not given Unchanged Ferrous Sulfate (ferrous sulfate 325 mg oral tablet) 1 tab(s) Oral 3 times a day as prescribed, not given Unchanged Furosemide (furosemide 40 mg oral tablet) 1 tab(s) Oral Daily as prescribed, not given Unchanged Gabapentin (gabapentin 600 mg oral tablet) 1 tab(s) Oral 3 times a day 3pm Unchanged Insulin Aspart (NovoLOG FlexPen 100 units/ mL subcutaneous solution) Subcutaneous Injection 3 times a day before meals as prescribed, not given Unchanged Insulin Glargine (Lantus Solostar Pen 100 units/ mL subcutaneous solution) 30 unit(s) Subcutaneous Injection Daily at Bedtime 9pm tonight Unchanged Isosorbide Mononitrate (Imdur 30 mg oral tablet, extended release) 1 tab(s) Oral Daily in the morning 9am tomorrow Unchanged Lisinopril (lisinopril 30 mg oral tablet) 1 tab(s) Oral Daily as prescribed, not given Unchanged Magnesium Oxide (magnesium oxide 400 mg oral tablet) 1 tab(s) Oral Daily 9am tomorrow Unchanged Omeprazole (omeprazole 20 mg oral delayed release tablet) 1 tab(s) Oral Daily 9am tomorrow Unchanged Rosuvastatin (Crestor 20 mg oral tablet) 1 tab(s) Oral Daily at Bedtime 9pm tonight Unchanged Tramadol (traMADol 50 mg oral tablet) 1 tab(s) Oral Daily as needed for Pain , Severe as prescribed, not given Pharmacy Information [facility]: [address] [place] [address] [phone] ?? What How Much When Why Comments Stop Taking Docusate (Colace sodium 100 mg oral capsule) 1 capsule Oral Twice a day as needed for for constipation Duration: 7 Days Stop Taking Durable Medical Equipment (Freestyle Vik 2 reader) See instructions use as directed for DM to check BG 4-5 times per day E11.9 ?? Stop Taking Durable Medical Equipment (Freestyle Vik 2 sensors) See instructions T2DM (type 2 diabetes mellitus) scan reader over sensor 7 times a day check blood sugars change every 14 days E11.9 ?? Stop Taking Durable Medical Equipment (Freestyle Vik Monitor) See instructions T2DM (type 2 diabetes mellitus) Duration: 30 Days scan reader over sensor to check blood sugar 6 times a day. E 11.9 ?? Stop Taking Durable Medical Equipment (Freestyle Vik Sensor) See instructions T2DM (type 2 diabetes mellitus) Duration: 30 Days scan reader over sensor to check blood sugar 6 times a day. E11.9 ?? Stop Taking Durable Medical Equipment (Freestyle Lite Test Strips) Stop Taking Durable Medical Equipment (Pen [place], 31 G x 5 mm BD Ultra Fine III) Stop Taking Fluticasone (Flovent HFA 110 mcg/ inh inhalation aerosol) 2 puff(s) Inhalation Twice a day Stop Taking Isosorbide Dinitrate (isosorbide dinitrate 30 mg oral tablet) 1 tab(s) Oral Twice a day Stop Taking Nystatin Topical (nystatin topical 252407 u/ gm powder) See instructions APPLY TO THE AFFECTED AREA(S) TOPICALLY TWICE DAILY ?? Stop Taking Senna 2 TABS Oral Daily Test Results Below is a partial list of the most recent Laboratory test results done prior to this discharge. You may have had other tests and procedures not included in this list. Please discuss all test resultswith your provider. Est Creatinine Clearance - 36.46 mL/min (07/23/2023) Basic Metabolic Panel (07/23/2023) ???Sodium - 142 mmol/L???Potassium - 4.5 mmol/L???Chloride - 104 mmol/L???Bicarbonate Level - 29 mmol/L???Anion Gap - 9???Glucose Level - 85 mg/dL???BUN - 18 mg/dL???Creatinine-Blood - 1.0 mg/dL???Estimated GFR Creatinine - 57 ML/MIN/1.73 M2???Calcium - 9.2 mg/dL BUN POC CARTRIDGE (07/22/2023) ???BUN (POC) POC Cartridge - 24 mg/dL CALCIUM IONIZED POC CART (07/22/2023) ???Ionized Calcium (POC) POC Cartridge - 1.28 mmol/L CBC (07/23/2023) ???WBC - 7.1 k/mm3???RBC - 4.67 m/mm3???Hgb - 10.9 Gm/dL???Hct - 37.7 %???MCV - 80.7 femtoliters???MCH - 23.3 pg???MCHC - 28.9 g/dL???Platelet Count - 141 k/mm3???RDW-SD - 43.8 femtoliters???MPV - 10.9 femtoliters???Nucleated RBC (Automated) - 0.0 #/100 WBC'S???Abs. NRBC - 0.0 k/mm3 CHLORIDE POC CARTRIDGE (07/22/2023) ???Chloride (POC) POC Cartridge - 102 mmol/L CREATININE POC CARTRIDGE (07/22/2023) ???Creatinine (POC) POC Cartridge - 1.2 mg/dL GLUCOSE POC (07/23/2023) ???Glucose, POC - 87 mg/dL GLUCOSE POC CARTRIDGE (07/22/2023) ???Glucose (POC) POC Cartridge - 118 HEMATOCRIT POC CARTRIDGE (07/22/2023) ???Hematocrit (POC) POC Cartridge - 36 % HEMOGLOBIN POC CARTRIDGE (07/22/2023) ???Hemoglobin (POC) POC Cartridge - 12.2 Gm/dL MAGNESIUM (07/23/2023) ???Magnesium - 1.8 mg/dL POTASSIUM POC CARTRIDGE (07/22/2023) ???Potassium (POC) POC Cartridge - 4.0 mmol/L SODIUM POC CARTRIDGE (07/22/2023) ???Sodium (POC) POC Cartridge - 142 mmol/L THYROID PANEL (07/23/2023) ???TSH - 3.15 uIU/mL???Free T4 - 0.79 ng/dL Allergies (NKA means No Known Allergies) NKA Problems Active Problems??(13) Abnormal laboratory test?? Atrial fibrillation with RVR?? Chronic kidney disease (CKD) stage G3a/A1, moderately decreased glomerular filtration rate (GFR) bet?? COPD (chronic obstructive pulmonary disease)?? Endometrial cancer?? GERD (gastroesophageal reflux disease)?? Hyperlipemia?? Knee pain?? Obese class I?? 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 Recurrent carcinoma of endometrium?? Seborrheic keratoses?? Type 2 diabetes mellitus?? Education Materials Below is the list of Educational Leaflet Providered with your Discharge Instructions. Valuables and Belongings I fully understand and agree that [facility] accepts no responsibility for all my personal property including clothing, toilet articles, radios, jewelry, dentures, hearing aids, rings, money, or any other property that is in my possession or is brought to me after admission. I understand certain valuables may be placed in a hospital safe for a short period of time. I understand that the hospital is not liable for loss or damage due to accident, fire, or other natural occurrence while said property is in the safe. I accept full responsibility for any personal property that I keep with me, and will not hold the hospital responsible in case of loss or disappearance. I acknowledge that i have been encouraged to send valuables and belongings home. ?? Review of Valuable and Belonging List: With patient, With family Date for Pt to Sign Valuables/Belongings: 07/22/23 16:36:00 ?? Other Discharge Information ? Pulmonary Rehab Status?? Pulmonary Rehab Discharge Status?? Respiratory Rate: 18 br/min ? Common Emergency Awareness Tips IS IT A STROKE? Act FAST and Check for these signs: FACE Does the face look uneven? ARM Does one arm drift down? SPEECH Does their speech sound strange? TIME Call at any sign of stroke ?? Heart Attack Signs Chest discomfort: Most heart attacks involve discomfort in the center of the chest and lasts more than a few minutes, or goes away and comes back. It can feel like uncomfortable pressure, squeezing, fullness or pain. Discomfort in upper body: Symptoms can include pain or discomfort in one or both arms, back, neck, jaw or stomach. Shortness of breath: With or without discomfort. Other signs: Breaking out in a cold sweat, nausea, or lightheaded. Remember, MINUTES DO MATTER. If you experience any of these heart attack warning signs, call to get immediate medical attention! ?? Smoking can increase your chances of developing chronic health problems and can cause harmful effects to other family members in your house. If you smoke, you are strongly encouraged to quit. Please call [facility] at [phone] or [phone]-[facility] ([phone]) or log in to [email or web address] for referrals to smoking cessation programs. ?? 939 Suicide & Crisis Lifeline is available 01/06 if you or someone you know needs to find a reason to keep living. By calling 084 you'll be connected to a skilled, trained counselor at a crisis center in your area. INPATIENT DISCHARGE INSTRUCTIONS SIGNATURE PAGE INNA MACIAS Location:[facility] Registration Date and Time:07/22/2023 14:33 EDT Primary Care Physician: Hazel Kilgore MD, Attending Physician: Koffi FELIPE, Cam, I INNA MACIAS, have received the above patient education materials/instructions and have verbalized understanding. If ambulance or transport services are being used I further acknowledgebeing given a choice of service. ?? If you need to contact me, please call me at this number: . 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 [id number] Metoprolol Oral Tablet Brands: Lopressor Usos Joaquina medicamento se usa para las siguientes afecciones: ??? ataque card??aco ??? angina ??? enfermedad card??jairo ??? dori presi??n arterial ??? prevenir migra??as ??? latidos card??acos irregulares ??? trastorno del movimiento ?? Instrucciones [place] el medicamento con alimentos. Joaquina medicamento funciona mejor si se usa a aproximadamente la misma hora todos los d??as. Guarde a temperatura ambiente, alejado del calor, la arsh y la humedad. No lo guarde en el ba??o. Es importante que contin??e tomando todas las dosis de joaquina medicamento a la hora indicada aunque se sienta candice. Si olvida bina danilo dosis a tiempo, t??allie london pronto lo recuerde. Si es jim la hora de la dosis siguiente, no tome la dosis olvidada. Vuelva al horario normal. No tome dos dosis al mismo tiempo. Las interacciones con otros medicamentos pueden cambiar la forma en que act??an los medicamentos o aumentar el riesgo de presentar efectos secundarios. Informe a neyda profesionales sanitarios acerca de todos los medicamentos que usa. [place] incluye medicamentos con y sin receta m??dica, vitaminas y medicamentos a base de hierbas. Hable con ortiz m??dico o farmac??utico antes de empezar o dejar de usar cualquier medicamento. Informe a ortiz m??dico si neyda s??ntomas no mejoran o si empeoran. Si tiene diabetes, joaquina medicamento puede ocultar algunos de los signos de bajo nivel de az??car enla nick, klaus latidos r??pidos del coraz??n. Controle neyda niveles de az??car en la nick regularmente y est?? atento a otros signos de bajo nivel de az??car en la nick. Entre los s??ntomas de bajo nivel de az??car en la nick se incluyen: n??useas, temblores, piel fr??a, sudoraci??n, latido acelerado, hambre e irritabilidad. Si debe dejar de bina joaquina medicamento, ortiz m??dico le recomendar?? que reduzca la dosis poco a poco antes de dejarlo por completo. Es muy importante que asista a todas las citas para evaluaciones y pruebas m??dicas mientras usa joaquina medicamento. ?? Precauciones Informe a ortiz m??dico y a ortiz farmac??utico si alguna vez cox tenido danilo reacci??n al??rgica a un medicamento. En algunos pacientes con corazones d??karon los s??ntomas podr??an empeorar. Si tiene problemas para respirar, aumenta de peso, o se le hinchan las piernas o los tobillos, informe a ortiz m??dico de inmediato. No use el medicamento m??s veces de lo indicado. Joaquina medicamento puede causar mareos o desmayo, sobre todo despu??s de hacer ejercicio o en clima c??lido. Tenga cuidado cuando se pare o se siente con rapidez. Joaquina medicamento puede afectar ortiz capacidad de mantenerse alerta o de reaccionar con rapidez. No maneje ni opere m??quinas hasta que sepa qu?? efecto le provocar?? joaquina medicamento. Consulte a ortiz m??dico antes de beber alcohol mientras usa joaquina medicamento. Joaquina medicamento pasa a la leche materna. Consulte a ortiz m??dico antes de amamantar. Myranda el embarazo, joaquina medicamento solo debe usarse cuando sea claramente necesario. Hable con ortiz m??dico acerca de los riesgos y beneficios. No comparta joaquina medicamento con otras personas a quienes no se les recet??. ?? Efectos Secundarios La siguiente es danilo lista de algunos efectos secundarios comunes de joaquina medicamento. Hable con el m??dico para saber qu?? debe hacer en susu de tener estos u otros efectos secundarios. ??? diarrea ??? mareos o aturdimiento ??? falta de energ??a y cansancio ??? latidos lentos del coraz??n ??? mareo [place] al m??dico u obtenga atenci??n m??dica de inmediato si nota cualquiera de estos efectos secundarios m??s graves: ??? confusi??n ??? depresi??n o sentimiento de tristeza ??? hinchaz??n de las piernas, pies y julia??? desmayo ??? fr??o en las julia o los pies ??? cambios de estado de ??marino ??? palidez o coloraci??n alonso de la piel, los labios o las u??as ??? falta de aliento ??? cansancio o debilidad, extra??o o sin causa aparente ??? aumento de peso repentino o inexplicado Algunas personas podr??an tener reacciones al??rgicas a joaquina medicamento. Entre los s??ntomas pueden incluirse: dificultad para respirar, erupci??n en la piel, comez??n, hinchaz??n o mareos intensos.Si nota algunos de estos s??ntomas, busque asistencia m??dica r??pidamente. ?? Extra Hable con ortiz m??dico, enfermero o farmac??utico si tiene alguna pregunta acerca de joaquina medicamento. ?? [email or web address] NOTA IMPORTANTE: En joaquina documento hay danilo explicaci??n breve sobre c??mo usar el medicamento, perono incluye todo lo que hay que saber acerca del medicamento. [place] m??dico o ortiz farmac??utico podr??a suministrarle otros documentos acerca de ortiz medicamento. Comun??quese con ellos si tiene alguna pregunta. Siga siempre neyda consejos. Danilo descripci??n m??s completa de joaquina medicamento est?? disponibleen ingl??s. Escanee joaquina c??digo en ortiz tel??fono inteligente o en ortiz tableta, o use la direcci??n web que aparece a continuaci??n. Tambi??n puede pedirle a ortiz farmac??utico danilo copia impresa. Si tiene alguna pregunta, h??gasela a ortiz farmac??utico. La exhibici??n y el uso de esta informaci??n sobre f??rmacos est?? sujeta a los T??rminos de Uso. Copyright(c) 2022 [employer] ?? 9831-7157 [employer]. All rights reserved. This information is not intended as a substitute for professional medical care. Always follow your healthcare professional's instructions. ?? * Abel TOMPKINS, Isamar: PERFORM Event Display: Patient Education Leaflets Authored Date: [id number] Apixaban Oral Tablet ?? [id number] Apixaban Oral Tablet Brands: Eliquis Usos Joaquina medicamento se usa para las siguientes afecciones: ??? co??gulo de nick ??? prevenir co??gulos de nick ??? trastorno sangu??kandy ??? tratamiento de co??gulos de nick ?? Instrucciones Joaquina medicamento se puede bina con o sin alimentos. Joaquina medicamento funciona mejor si se usa a aproximadamente la misma hora todos los d??as. Guarde a temperatura ambiente, alejado del calor, la arsh y la humedad. No lo guarde en el ba??o. Es importante que contin??e tomando todas las dosis de joaquina medicamento a la hora indicada aunque se sienta candice. Si olvida bina danilo dosis a tiempo, t??allie london pronto lo recuerde. Si es jim la hora de la dosis siguiente, no tome la dosis olvidada. Vuelva al horario normal. No tome dos dosis al mismo tiempo. Las interacciones con otros medicamentos pueden cambiar la forma en que act??an los medicamentos o aumentar el riesgo de presentar efectos secundarios. Informe a neyda profesionales sanitarios acerca de todos los medicamentos que usa. [place] incluye medicamentos con y sin receta m??dica, vitaminas y medicamentos a base de hierbas. Hable con ortiz m??dico o farmac??utico antes de empezar o dejar de usar cualquier medicamento. Hable con ortiz m??dico antes de bina otros medicamentos, incluso las aspirinas y los productos que contienen ibuprofeno. Hable con ortiz m??dico acerca de los medicamentos que puede usar sin riesgos mientras use joaquina medicamento. Es muy importante que siga las instrucciones de ortiz m??dico para todos los an??lisis de nick. ?? Precauciones Esta medicina puede causar graves problemas de hemorragia en pacientes que christian medicamentos diluyentes de la nick. Siga atentamente las instrucciones de ortiz m??dico para monitorear neyda ex??menes de nick en laboratorio si marc diluyentes de la nick. Informe a ortiz m??dico y a ortiz farmac??utico si alguna vez cox tenido danilo reacci??n al??rgica a un medicamento. Joaquina medicamento puede causar sangrado intenso del est??anjel o los intestinos. Deje de bina joaquina medicamento y llame a ortiz m??dico inmediatamente si nota alguna se??al de sangrado. El sangrado puede causar dolor de est??anjel, v??sarai de un l??quido parecido a caf?? molido y heces de color rayo, o alquitranadas y oscuras. Hay un mayor riesgo de sangrado mientras marc esta medicina; av??johan a ortiz m??dico o enfermero si observa sangrado excesivo o moretones. No use el medicamento m??s veces de lo indicado. Consulte a ortiz m??dico antes de beber alcohol mientras usa joaquina medicamento. No amamante mientras est?? usando joaquina medicamento. Joaquina medicamento puede causar da??os a un beb?? en el ??tero. Si queda embarazada mientras usa estemedicamento, av??johan a ortiz m??dico de inmediato. El m??dico puede cambiar el medicamento por otro diferente. No tome hierba de [place] mientras use joaquina medicamento. No comparta joaquina medicamento con otras personas a quienes no se les recet??. Algunos pacientes presentan efectos secundarios graves con joaquina medicamento. P??matthew a ortiz farmac??utico que le muestre la informaci??n de la Administraci??n de Alimentos y Medicamentos (FDA) y que laanalice con usted. Siempre vuelva a surtir esta medicina antes de que se le acabe. ?? Efectos Secundarios La siguiente es danilo lista de algunos efectos secundarios comunes de joaquina medicamento. Hable con el m??dico para saber qu?? debe hacer en susu de tener estos u otros efectos secundarios. ??? hemorragia nasal Llame al m??dico u obtenga atenci??n m??dica de inmediato si nota cualquiera de estos efectos secundarios m??s graves: ??? sangrado o moretones ??? tos con nick, o v??sarai con aspecto de poso de caf? desmayo ???adormecimiento u hormigueo en las julia y los pies ??? dolor de debbie intenso o persistente ??? dolor de piernas, hinchaz??n, calor o enrojecimiento repentinos ??? p??rdida de movimiento en cualquier parte del cuerpo ??? falta de aliento ??? heces con nick o de color oscuro/alquitranadas ??? s??ntomas de accidente cerebrovascular (por ejemplo, debilidad en un lado del cuerpo, hablar arrastrando las palabras, confusi??n) ??? dificultad para tragar ??? cansancio o debilidad, extra??o o sin causa aparente ??? nick en la orina ??? visi??n borrosa o cambios en la visi??n Algunas personas podr??an tener reacciones al??rgicas a joaquina medicamento. Entre los s??ntomas pueden incluirse: dificultad para respirar, erupci??n en la piel, comez??n, hinchaz??n o mareos intensos.Si nota algunos de estos s??ntomas, busque asistencia m??dica r??pidamente. ?? Extra Hable con ortiz m??dico, enfermero o farmac??utico si tiene alguna pregunta acerca de joaquina medicamento. ?? [email or web address] NOTA IMPORTANTE: En joaquina documento hay danilo explicaci??n breve sobre c??mo usar el medicamento, perono incluye todo lo que hay que saber acerca del medicamento. Ortiz m??dico o ortiz farmac??utico podr??a suministrarle otros documentos acerca de ortiz medicamento. Comun??quese con ellos si tiene alguna pregunta. Siga siempre neyda consejos. Danilo descripci??n m??s completa de joaquina medicamento est?? disponibleen ingl??s. Escanee joaquina c??digo en ortiz tel??fono inteligente o en ortiz tableta, o use la direcci??n web que aparece a continuaci??n. Tambi??n puede pedirle a ortiz farmac??utico danilo copia impresa. Si tiene alguna pregunta, h??gasela a ortiz farmac??utico. La exhibici??n y el uso de esta informaci??n sobre f??rmacos est?? sujeta a los T??rminos de Uso. Copyright(c) 2022 [employer], [employer]. ?? 4449-3242 [employer]. All rights reserved. This information is not intended as a substitute for professional medical care. Always follow your healthcare professional's instructions. ?? * Abel TOMPKINS, Isamar: PERFORM Event Display: Patient Education Leaflets Authored Date: Atrial Fibrillation ?? [id number] Fibrilaci??n auricular La fibrilaci??n auricular es danilo afecci??n en la que el coraz??n late de manera irregular. Es el ritmo card??aco anormal m??s frecuente. Se debe a un problema en los circuitos el??ctricos del coraz??n que se encuentran dentro del m??sculo de las cavidades superiores del coraz??n (aur??culas). Puedeser se??al de enfermedad card??jairo u otro problema de avel que est?? afectando el coraz??n. Un s??ntoma frecuente de la fibrilaci??n auricular son las palpitaciones card??acas, que son la sensaci??n de aleteo del coraz??n o latidos r??pidos, intensos o irregulares. Si el coraz??n late demasiado r??pido, no bombea adecuadamente la nick. [place] puede causar otros s??ntomas, klaus ansiedad, fa tiga, dificultad para respirar, dolor en el pecho, mareos o desmayos. La fibrilaci??n auricular puede ser danilo afecci??n temporal. Puede durar desde unas pocas horas a un par de d??as. Kiera tambi??n es posible que se convierta en danilo afecci??n a graciela plazo (cr??dante), que puede durar meses o, incluso, volverse permanente. Algunos s??ntomas de la fibrilaci??n auricular son dif??ciles de reconocer.Incluyen sentirse menos capaz de realizar ejercicios. Algunas personas no presentan s??ntomas. La fibrilaci??n auricular es m??s com??n en los adultos mayores. Puede ser provocada por danilo enfermedad card??jairo u otras afecciones del cuerpo que afectan el coraz??n. Por ejemplo: ??? Enfermedad de las arterias coronarias (aterosclerosis; a veces, denominada ???arterias obstruidas?? ) ??? Presi??n arterial dori ??? Enfermedad de las v??lvulas del coraz??n ??? Coraz??n agrandado ??? Insuficiencia card??jairo La fibrilaci??n auricular tambi??n puede darse sin la presencia de un enfermedad card??jairo debido a: ??? La tiroides superactiva (hipertiroidismo) ??? Danilo enfermedad pulmonar cr??dante (EPOC, enfisema,bronquitis) ??? Gran consumo de alcohol ??? Estimulantes card??acos, klaus coca??na, anfetaminas, pastillas para adelgazar, ciertos descongestivos para el resfr??o, cafe??na o nicotina ??? Infecci??n ??? Co??gulo de nick en el pulm??n (embolia pulmonar) ??? Diabetes ??? Enfermedad renal cr??dante ??? Obesidad ??? Preparaci??n kervin??shea extrema o continua ??? Determinadas enfermedades gen??markell Tratar o eliminar estas causas ser?? de ayuda para el tratamiento de la fibrilaci??n auricular. Tambi??n reducir?? la probabilidad de que la fibrilaci??n auricular reaparezca. La fibrilaci??n auricular puede darse de manera alternada con otro ritmo card??aco anormal llamado ???aleteo auricular?? . El aleteo auricular es un ritmo card??aco m??s regular, que tambi??n est?? asociado a un mayor riesgo de sufrir un accidente cerebrovascular. Para reducir arianna riesgo, es preciso que el paciente siga el tratamiento adecuado. Cuidados en el hogar Siga estos consejos para ortiz cuidado en el hogar: ??? Reanude neyda actividades habituales london pronto klaus sienta que est?? regresando a la normalidad. ??? Si usted fuma, deje de hacerlo. P??ngase en contacto con ortiz proveedor de atenci??n m??dica o alg??n programa para dejar de fumar local para obtener ayuda al respecto. ??? No use estimulantes, klaus alcohol, coca??na, anfetaminas, pastillas para adelgazar, ciertos descongestivos para el resfr??o, cafe??na ni nicotina. ??? Si le recetaron un medicamento para evitar la reaparici??n de la fibrilaci??n auricular, t??sal exactamente willie le indicaron. Algunos medicamentos se deben bina todos los d??as, no solo cuando se presentan los s??ntomas, para que surtan el efecto deseado. ??? Si le recetaron un medicamento anticoagulante llamado warfarina para reducir el riesgo de sufrir un accidente cerebrovascular, h??gase an??lisis de nick en forma regular, seg??n lo indicado por ortiz m??dico. De ann manera, se asegura de que la dosis que est?? sarah ando sea la adecuada para usted, con lo cual puede reducir el riesgo de sufrir efectos secundarios.Es posible que se le hayan recetado otros medicamentos anticoagulantes que no necesitan que se realice an??lisis con regularidad. ?? Visita de control Asista a las citas de seguimiento con ortiz proveedor de atenci??n m??dica, o seg??n le hayan aconsejado. ?? Cu??ndo buscar atenci??n m??dica Llame a ortiz proveedor de atenci??n m??dica de inmediato si algo de lo siguiente ocurre: ??? Hinchaz??n en las piernas que empeora ??? Aumento de peso inesperado ??? Sangrado con mayor facilidad que lohabitual ??? Dolor, enrojecimiento o hinchaz??n de danilo pierna ?? Cu??ndo llamar al 911 Llamar al 911 es la forma m??s r??pida y garcia de llegar al departamento de emergencias. Los real??dicos tambi??n pueden iniciar el tratamiento edel al hospital, si fuese necesario. Llame al 911 o solicite ayuda m??dica de inmediato en cualquiera de los siguientes casos: ??? Debilidad en un brazo o danilo pierna, o en un lado de la celine ??? Dolor de pecho ??? Dificultades para respirar o la sensaci??n de que no puede inspirar suficiente cantidad de aire ??? Sensaci??n de mareos, a turdimiento o desmayos ??? Latidos card??acos muy acelerados, lentos o irregulares en comparaci??n con los latidos card??acos habituales ??? Sangrado que no se puede controlar con facilidad? Problemas para hablar o josé ??? Gran somnolencia, confusi??n, mareo o desmayo ?? Last Reviewed Date: 2019 ?? [id number] [employer]. Todos los derechos reservados. Esta informaci??n no pretende sustituir la atenci??n m??dica profesional. S??lo ortiz m??dico puede diagnosticar y tratar un problema de avel. ?? Patient Care team information Care Team Personnel Name: Lashay Anderson RN Position: [facility] RN Member Role: Primary Care Nurse Name: Hazel Kilgore MD Position: [facility] Outreach Member Role: PCP Address: Address: [address] [place] [address] [address] [place] [id number]- Name: Hazel James RN Position: [facility] RN Member Role: Primary Care Nurse Name: Anastasia Wright RN Position: [facility] RN Member Role: Primary Care Nurse Name: Monique Kohli RN Position: [facility] Hospital Microfilmer Member Role: Primary Care Nurse Name: Maxine Stewart RN Position: [facility] RN Member Role: Primary Care Nurse Name: Delma Harrell RN Position: [facility] Onco RN Member Role: Primary Care Nurse Care Team Related Persons Name: WAYNEMITRA TREVIÑO Address: [address] [place] [address] Name: JOYCE ALCALA Address: home [address] [place] [address]
--- OUTSIDE RECORDS SUMMARY | 2024-02-15 13:10 | XMS_ITS | Continuity of Care Document ---
Author Organization [facility] Address [address] [place] [address]- Care Team Providers Care Medical Radiation Dosimetrist Name Role Phone [place] Hazel FELIPE Primary Care Physician [place] [facility] [place] - 12/20/[address] [address] Attending Physician: Jeremy Gaston Admitting Physician: AdmJeremy pak Referring Physician: AdmtrJeremy Allergies, Adverse Reactions, Alerts Substance Reaction Severity Status NKA Active Medications amLODIPine 5 mg oral tablet 5 mg, 1, tablet, By Mouth, Daily, Refills 0, Maintenance, 03/12/17 11:32:25 Start Date: 03/12/17 Status: Ordered aspirin 81 mg oral tablet 1 tablet = 81 mg, By Mouth, Daily, 0 Refills, Maintenance, 12/29/16 15:04:44 Start Date: 12/29/16 Status: Ordered Calcium 600 +D By Mouth, 0 Refills, Maintenance, 08/22/16 13:45:45 Start Date: 08/22/16 Status: Ordered Colace sodium 100 mg oral capsule 100 mg, 1, capsule, By Mouth, 2 times a day, PRN, # 14 capsule, Refills 0, Tot. Refills 0, Maintenance, for constipation, 12/06/16 21:29:29, Print Requisition Start Date: 12/06/16 Stop Date: 12/13/16 Status: Ordered Crestor 20 mg oral tablet 1 tablet = 20 mg, By Mouth, Daily at bedtime, 0 Refills, Maintenance, 07/01/16 9:49:40 Start Date: 07/01/16 Status: Ordered doxazosin 4 mg oral tablet 1 tablet = 4 mg, By Mouth, Daily, 0 Refills, Maintenance, 07/01/16 9:49:26 Start Date: 07/01/16 Status: Ordered ferrous sulfate 325 mg oral tablet 1 tablet = 325 mg, By Mouth, 3 times a day, 0 Refills, Maintenance, 12/29/16 15:03:37 Start Date: 12/29/16 Status: Ordered Flovent HFA 110 mcg/inh inhalation aerosol 2 puffs, Inhalation, 2 times a day, # 12 Gm, 0 Refills, Maintenance, 07/01/16 9:50:57, Aerosol Start Date: 07/01/16 Status: Ordered Freestyle Lite Test Strips Maintenance, 07/01/16 9:50:06, Compound Start Date: 07/01/16 Status: Ordered furosemide 40 mg oral tablet 40 mg, 1, tablet, By Mouth, Daily, Refills 0, Maintenance, 07/01/16 9:48:03 Start Date: 07/01/16 Status: Ordered gabapentin 600 mg oral tablet 1 tablet = 600 mg, By Mouth, 3 times a day, 0 Refills, Maintenance, 07/01/16 9:49:10 Start Date: 07/01/16 Status: Ordered isosorbide dinitrate 30 mg oral tablet 1 tablet = 30 mg, By Mouth, 2 times a day, 0 Refills, Maintenance, 09/15/18 11:48:08 EST Start Date: 09/15/18 Status: Ordered Lantus Solostar Pen 100 units/mL subcutaneous solution = 36 units, Subcutaneous Injection, Daily at bedtime, 0 Refills, Maintenance, 07/01/16 9:50:48 Start Date: 07/01/16 Status: Ordered lisinopril 30 mg oral tablet 1 tablet = 30 mg, By Mouth, Daily, 0 Refills, Maintenance, 07/01/16 9:48:34 Start Date: 07/01/16 Status: Ordered magnesium oxide 400 mg oral tablet 1 tablet = 400 mg, By Mouth, Daily, 0 Refills, Maintenance, 02/10/17 13:16:40 Start Date: 02/10/17 Status: Ordered metFORMIN ER 500 mg oral tablet 1 tablet = 500 mg, By Mouth, Daily, 0 Refills, Maintenance, 07/01/16 9:48:59 Start Date: 07/01/16 Status: Ordered mirabegron 50 mg oral tablet, extended release 1 tablet = 50 mg, By Mouth, Daily, do not crush or chew, # 30 tablet, 5 Refills, Maintenance, 04/16/20 13:33:00 EDT, ER Tablet, [facility], 155.4, cm, 01/03/20 11:16:00 EST, Height, 100, kg, 01/03/20 11:16:00 EST, Dry Weight Start Date: 04/16/20 Status: Ordered mirabegron 50 mg oral tablet, extended release 1 tablet = 50 mg, By Mouth, Daily, do not crush or chew, # 30 tablet, 5 Refills, Maintenance, 06/27/20 14:13:00 EDT, ER Tablet, [facility], 155.4, cm, 04/30/20 11:09:00 EDT, Height, 103.1, kg, 04/30/20 11:09:00 EDT, Dry Weight Start Date: 06/27/20 Status: Ordered NovoLOG FlexPen 100 units/mL subcutaneous solution Subcutaneous Injection, 3 times a day before meals, 0 Refills, Maintenance, 07/01/16 9:50:36 Start Date: 07/01/16 Status: Ordered omeprazole 20 mg oral delayed release tablet 1 tablet = 20 mg, By Mouth, Daily, 0 Refills, Maintenance, 12/29/16 15:04:06 Start Date: 12/29/16 Status: Ordered Pen [place], 31 G x 5 mm BD Ultra Fine III Maintenance, 07/01/16 9:52:01, Compound Start Date: 07/01/16 Status: Ordered Senna 2 TABS, By Mouth, Daily, 0 Refills, Maintenance, 09/15/18 11:48:15 EST Start Date: 09/15/18 Status: Ordered Vitamin C By Mouth, Daily, 0 Refills, Maintenance, 03/12/17 11:32:49 Start Date: 03/12/17 Status: Ordered Problem List Condition Effective Dates Status Health Status Inform ant Chronic kidney disease (CKD) stage G3a/A1, moderately decreased glomerular filtration rate (GFR) between 45-59 mL/min/1.73 square meter and albuminuria creatinine ratio less than 30 mg/g(Confirmed) Active COPD (chronic obstructive pu lmonary disease)(Confirmed) Active GERD (gastroesophageal reflu x disease)(Confirmed) Active Hyperlipemia(Confirmed) Active Knee pain(Confirmed) Active Abnormal laboratory test(Confirmed) 1 Active Endometrial cancer(Confirmed) Active Positive PPD 20 mm(Confirmed) 10/07/16 Active Seborrheic keratoses(Confirmed) Active Type 2 diabetes mellitus(Confirmed) Active 1T Spot Positive 10/20/2016 Social History Social History Type Response Smoking Status Former smoker; Tobac co user in household: No; Type: Cigarettes; Other: Quit 24 years ago; entered on: 12/29/16 Sex
--- OUTSIDE RECORDS SUMMARY | 2024-02-15 13:10 | XMS_ITS | Continuity of Care Document ---
Author Organization [facility] Phill Maldonado nSuryas [facility] Address [address] [place] [address]- Care Team Providers Care Pharmaceutical Physician Name Role Phone Hazel Kilgore MD Primary Care Physician Encounter [facility] [place] Date(s): 08/17/19 - 10/27/19 [facility] Phillgwyn RobersonSupply [facility] [address] [place] [address]- Attending Physician: Didi Duran MD Admitting Physician: Didi Duran MD Referring Physician: Hazel Kilgore MD Allergies, Adverse Reactions, Alerts Substance Reaction Severity [...] chew, # 30 tablet, 5 Refills, Maintenance, 10/04/19 11:27:27 EST, ER Tablet Start Date: 10/04/19 Status: Ordered NovoLOG FlexPen 100 units/mL subcutaneous solution Subcutaneous Injection, 3 times a day before meals, 0 Refills, Maintenance, 07/01/16 9:50:36 Start Date: 07/01/16 Status: Ordered omeprazole 20 mg oral delayed release tablet 1 tablet = 20 mg, By Mouth, Daily, 0 Refills, Maintenance, 12/29/16 15:04:06 Start Date: 12/29/16 Status: Ordered Pen [place], 31 G x 5 mm BD Ultra [...]
--- OUTSIDE RECORDS SUMMARY | 2024-02-15 13:10 | XMS_ITS | Continuity of Care Document ---
Author Organization [facility] Joel allison5 CUPS and some sugarrichie [facility] Address [address] [place] [address], [address] [place] [address]- Care Team Providers Care Tax Assessor Name Role Phone [place] Hazel FELIPE Primary Care Physician [place] [facility] [id number] Date(s): 02/09/23 - 03/11/23 [facility]gwyn Roberson5 CUPS and some sugars [facility] [address] [place] [address]- Attending Physician: Jeremy Gaston Admitting Physician: Jeremy Gaston Referring Physician: AdmJeremy pak Allergies, Adverse Reactions, Alerts No Known Allergies [...] 11 Refills, Maintenance, 03/03/23 10:18:00 EDT, Tablet, [facility], Partial fill upon patient request [...] Aerosol Start Date: 07/01/16 Status: Ordered Freestyle Vik 2 reader Freestyle Vik 2 reader, See Instructions, # 1 each, Refills 0, Tot. Refills 0, Maintenance, use as directed for DM to check BG 4-5 times per day E11.9, 06/17/22 14:58:00 EDT, Supply, 153.7, cm, 04/28/22 10:58:00 EDT, Height, 91.8, kg, 04/28/22 10:58... Start Date: 06/17/22 Status: Ordered Freestyle Vik 2 sensors Freestyle Vik 2 sensors, See Instructions, # 2 each, Refills 11, Tot. Refills 11, Maintenance, scan reader over sensor 7 times a day check blood sgars E11.9, 07/11/22 11:35:00 EDT, Supply, 153.7, cm, 07/11/22 10:57:00 EDT, Height, 91.8, kg, 04/28/22... Start Date: 07/11/22 Status: Ordered Freestyle Vik Monitor See Instructions, # 1 each, Refills 3, Tot. Refills 3, Maintenance, scan reader over sensor to check blood sugar 6 times a day. E 11.9, 06/17/21 10:44:00 EDT, Supply Start Date: 06/17/21 Stop Date: 10/15/21 Status: Ordered Freestyle Vik Sensor See Instructions, # 2 each, Refills 11, Tot. Refills 11, Maintenance, scan reader over sensor to check blood sugar 6 times a day. E11.9, 04/22/22 8:51:00 EDT, Supply Start Date: 04/22/22 Stop Date: 04/17/23 Status: Ordered Freestyle Lite Test Strips Maintenance, [...] 02/10/17 13:16:40 Start Date: 02/10/17 Status: Ordered mirabegron 50 mg oral tablet, extended release 1 tablet = 50 mg, By Mouth, Daily, do not crush or chew, # 30 tablet, 5 Refills, Maintenance, 04/16/20 13:33:00 EDT, ER Tablet, [facility], 155.4, cm, 01/03/20 11:16:00 EST, Height, 100, kg, 01/03/20 11:16:00 EST, Dry Weight Start Date: 04/16/20 Status: Ordered mirabegron 50 mg oral tablet, extended release 1 tablet = 50 mg, By Mouth, Daily, do not crush or chew, # 30 tablet, 11 Refills, Maintenance, 08/11/22 12:51:00 EDT, ER Tablet, [facility], 153.7, cm, 07/11/22 10:57:00 EDT, Height, 91.8, kg, 04/28/22 10:58:00 EDT, Dry Weight Start Date: 08/11/22 Status: Ordered NovoLOG FlexPen 100 units/mL subcutaneous solution Subcutaneous Injection, 3 times a day before meals, 0 Refills, Maintenance, 07/01/16 9:50:36 Start Date: 07/01/16 Status: Ordered nystatin topical [id number] u/gm powder See Instructions, APPLY TO THE AFFECTED AREA(S) TOPICALLY TWICE DAILY, # 60 Gm, 2 Refills, [facility], 30, APPLY TO THE AFFECTED AREA(S) TOPICALLY TWICE DAILY, 157.5, cm, 10/28/2111:02:00 EST, Height, 45.8, kg, 05/01/21 11:09:00 E... Start Date: 11/25/21 Status: Ordered omeprazole 20 mg oral delayed release tablet 1 tablet = 20 mg, By Mouth, Daily, 0 Refills, Maintenance, 12/29/16 15:04:06 Start Date: 12/29/16 Status: Ordered Pen [place], 31 G x 5 mm BD Ultra Fine III Maintenance, 07/01/16 9:52:01, Compound Start Date: 07/01/16 Status: Ordered Senna 2 TABS, By Mouth, Daily, 0 Refills, Maintenance, 09/15/18 11:48:15 EST Start Date: 09/15/18 Status: Ordered traMADol 50 mg oral tablet 1 tablet = 50 mg, By Mouth, Every 6 hours, 0 Refills, Maintenance, 04/28/22 11:01:00 EDT, Partial fill upon patient request if the prescription is for a schedule II opioid drug. Start Date: 04/28/22 Status: Ordered Trulicity Pen 1.5 mg/0.5 mL subcutaneous solution 0.5 mL = 1.5 mg, Subcutaneous Injection, Every week, rotate injection sites. 90 day supply. E 11.9,# 6.5 mL, 3 Refills, Maintenance, 06/18/22 11:02:00 EDT, Solution, [facility], Partial fill upon patient request if the prescriptio... Start Date: 06/18/22 Status: Ordered Vitamin C By Mouth, Daily, 0 Refills, Maintenance, 03/12/17 11:32:49 Start Date: 03/12/17 Status: Ordered Problem List Condition Confirmation Course Effective Dates Status Health St atus Informant Chronic kidney disease (CKD) stage G3a/A1, moderately decreased glomerular filtration rate (GFR) between 45-59 mL/min/1.73 square meter and albuminuria creatinine ratio less than 30 mg/g Confirmed Active COPD (chronic obstructive pulmonary disease) Confirmed Active GERD (gastroesophageal reflux disease) Confirmed Active Hyperlipemia Confirmed Active Knee pain Confirmed Active Abnormal laboratory test 1 Confirmed Active Endometrial cancer Confirmed Active Positive PPD 20 mm Confirmed 10/07/16 Active Seborrheic keratoses Confirmed Active Severe obesity (BMI 35.0-39.9) with comorbidity Confirmed Active Type 2 diabetes mellitus Confirmed Active 1T Spot Positive 10/20/2016 Social History Social History Type Response Smoking Status Former smoker; Tobac co user in household: No; Type: Cigarettes; Other: Quit 24 years ago; entered on: 12/29/16 Sex Patient Care team information Care Team Personnel Name: Lashay Anderson RN Position: [facility] RN Member Role: Primary Care Nurse Name: Hazel Kilgore MD Position: [facility] Outreach Member Role: PCP Address: Address: [address] [place] [address] [address] [place], [place] [address] Name: Sally Ochoa RN Position: [facility] RN Supv Member Role: Primary Care Nurse Name: Hazel James RN Position: [facility] RN Member Role: Primary Care Nurse Name: Anastasia Wright RN Position: [facility] RN Member Role: Primary Care Nurse Name: Monique Kohli RN Position: [facility] Hospital Yarn Winder Member Role: Primary Care Nurse Name: Maxine Stewart RN Position: [facility] RN Member Role: Primary Care Nurse Name: Delma Harrell RN Position: [facility] RN Member Role: Primary Care Nurse Care Team Related Persons Name: MITRA WAYNE Address: [address] [address] Name: JOYCE ALCALA Address: [address] [address]
--- OUTSIDE RECORDS SUMMARY | 2024-02-15 13:10 | XMS_ITS | Continuity of Care Document ---
Author Organization [facility] Joel [employer] [facility] Address [address], [address]t [place] [address]- Care Team Providers Care Compliance Tester Name Role Phone [place] , Hazel Soriano Primary Care Physician Encounter [facility] Date(s): 12/27/21 - 01/26/22 [facility] Phill KarolAbove [employer] [facility] [address], 4th Floor [place], [place] [address] Attending Physician: Jeremy Gaston Admitting Physician: Jeremy [...] 0 Refills, Maintenance, 07/01/16 9:49:40 Start Date: 8/23/16 Status: Ordered doxazosin 4 mg oral tablet 1 tablet = 4 mg, By Mouth, Daily, 0 Refills, Maintenance, 07/01/16 9:49:26 Start Date: 07/01/16 Status: Ordered Farxiga 5 mg oral tablet 1 tablet = 5 mg, By Mouth, Daily, 0 Refills, Maintenance, 06/14/21 11:19:00 EDT, Partial fill upon patient request if the prescription is for a schedule II opioid drug. Start Date: 06/14/21 Status: Ordered ferrous sulfate 325 mg oral tablet 1 tablet = 325 mg, By Mouth, 3 times a day, 0 Refills, Maintenance, 12/29/16 15:03:37 Start Date: 12/29/16 Status: Ordered Flovent HFA 110 mcg/inh inhalation aerosol 2 puffs, Inhalation, 2 times a day, # 12 Gm, 0 Refills, Maintenance, 07/01/16 9:50:57, Aerosol Start Date: 07/01/16 Status: Ordered Freestyle Vik 2 sensors Freestyle Vik 2 sensors, See Instructions, # 2 each, Refills 8, Tot. Refills 8, Maintenance, scanreader over sensor 7 times a day check blood sgars E11.9, 10/01/21 9:15:00 EST, Supply, 157.5, cm, 09/20/21 10:34:00 EST, Height, 45.8, kg, 05/01/21 11... Start Date: 10/01/21 Status: Ordered Freestyle Vik Monitor See Instructions, # 1 each, Refills 3, Tot. Refills 3, Maintenance, scan reader over sensor to check blood sugar 6 times a day. E 11.9, 06/17/21 10:44:00 EDT, Supply Start Date: 06/17/21 Stop Date: 10/15/21 Status: Ordered Freestyle Vik Sensor See Instructions, # 2 each, Refills 3, Tot. Refills 3, Maintenance, scan reader over sensor to check blood sugar 6 times a day. E11.9, 06/17/21 10:44:00 EDT, Supply Start Date: 06/17/21 Stop Date: 10/15/21 Status: Ordered Freestyle Lite Test Strips Maintenance, [...] Refills, Maintenance, 04/16/20 13:33:00 EDT, ER Tablet, [facility], 155.4, cm, 01/03/20 11:16:00 EST, Height, 100, kg, 01/03/20 11:16:00 EST, Dry Weight Start Date: 04/16/20 Status: Ordered mirabegron 50 mg oral tablet, extended release 1 tablet = 50 mg, By Mouth, Daily, do not crush or chew, # 30 tablet, 2 Refills, Maintenance, 12/13/21 11:13:00 EST, ER Tablet, [facility], 157.5, cm, 10/28/21 11:02:00 EST, Height, 45.8, kg, 05/01/21 11:09:00 EDT, Dry Weight Start Date: 12/13/21 Status: Ordered NovoLOG FlexPen 100 units/mL subcutaneous solution Subcutaneous Injection, 3 times a day before meals, 0 Refills, Maintenance, 07/01/16 9:50:36 Start Date: 07/01/16 Status: Ordered nystatin topical 797256 u/gm powder See Instructions, APPLY TO THE AFFECTED AREA(S) TOPICALLY TWICE DAILY, # 60 Gm, 2 Refills, [facility], 30, APPLY TO THE AFFECTED AREA(S) TOPICALLY TWICE DAILY, 157.5, cm, 10/28/2111:02:00 EST, Height, 45.8, kg, 05/01/21 11:09:00 E... Start Date: 11/25/21 Status: Ordered omeprazole 20 mg oral delayed release tablet 1 tablet = 20 mg, By Mouth, Daily, 0 Refills, Maintenance, 12/29/16 15:04:06 Start Date: 12/29/16 Status: Ordered Pen [place], 31 G x 5 mm BD Ultra Fine III Maintenance, 07/01/16 9:52:01, Compound Start Date: 07/01/16 Status: Ordered Senna 2 TABS, By Mouth, Daily, 0 Refills, Maintenance, 09/15/18 11:48:15 EST Start Date: 09/15/18 Status: Ordered Trulicity Pen 1.5 mg/0.5 mL subcutaneous solution 0.5 mL = 1.5 mg, Subcutaneous Injection, Every week, rotate injection sites. 90 day supply. E 11.9,# 6.5 mL, 3 Refills, Maintenance, 08/07/21 12:51:00 EDT, Solution, [facility], Partial fill upon patient request if the prescriptio... Start Date: 08/07/21 Status: Ordered Vitamin C By Mouth, Daily, [...] Active Positive PPD 20 mm(Confirmed) 10/07/16 Active Obese class II(Confirmed) Active Seborrheic keratoses(Confirmed) Active Type 2 diabetes mellitus(Confirmed) Active 1T Spot Positive 10/20/2016 Social History Social History Type Response Smoking Status Former smoker; Tobac co user in household: No; Type: Cigarettes; Other: Quit 24 years ago; entered on: 12/29/16 Sex
--- OUTSIDE RECORDS SUMMARY | 2024-02-15 13:10 | XMS_ITS | Continuity of Care Document ---
Author Organization [facility] Address [address] [place] [address]- Care Team Providers Care Sintering Plant Supervisor Name Role Phone Hazel Kilgore MD Primary Care Physician Encounter [facility] Date(s): 03/25/22 - 04/24/22 [facility] [address] [place] [id number] Attending Physician: Jeremy Gaston Admitting Physician: Jeremy Gaston Referring Physician: AdmtrJeremy Allergies, Adverse Reactions, Alerts No Known Allergies [...] tablet = 10 mg, By Mouth, Daily, higher dose keep up with fluids, # 30 tablet, 11 Refills, Maintenance, 03/25/22 11:33:00 EDT, Tablet, [facility], Partial fill upon patient request if the prescription is for a schedule II opioid... Start Date: 03/25/22 Status: Ordered ferrous sulfate 325 mg oral [...] Refills, Maintenance, 04/16/20 13:33:00 EDT, ER Tablet, [facility], 155.4, cm, 01/03/20 11:16:00 EST, Height, 100, kg, 01/03/20 11:16:00 EST, Dry Weight Start Date: 04/16/20 Status: Ordered mirabegron 50 mg oral tablet, extended release 1 tablet = 50 mg, By Mouth, Daily, do not crush or chew, # 30 tablet, 2 Refills, Maintenance, 12/13/21 11:13:00 EST, ER Tablet, [facility], 157.5, cm, 10/28/21 11:02:00 EST, Height, 45.8, kg, 05/01/21 11:09:00 EDT, Dry Weight Start Date: 12/13/21 Status: Ordered NovoLOG FlexPen 100 units/mL subcutaneous solution Subcutaneous Injection, 3 times a day before meals, 0 Refills, Maintenance, 07/01/16 9:50:36 Start Date: 07/01/16 Status: Ordered nystatin topical 082666 u/gm powder See Instructions, APPLY TO THE AFFECTED AREA(S) TOPICALLY TWICE DAILY, # 60 Gm, 2 Refills, [facility], 30, APPLY TO THE AFFECTED AREA(S) TOPICALLY TWICE DAILY, 157.5, cm, 10/28/2111:02:00 EST, Height, 45.8, kg, 05/01/21 11:09:00 E... Start Date: 11/25/21 Status: Ordered omeprazole 20 mg oral delayed release tablet 1 tablet = 20 mg, By Mouth, Daily, 0 Refills, Maintenance, 12/29/16 15:04:06 Start Date: 12/29/16 Status: Ordered Pen [place], 31 G x 5 mm BD Ultra [...] 3 Refills, Maintenance, 08/07/21 12:51:00 EDT, Solution, [facility], Partial fill upon patient request [...]
--- OUTSIDE RECORDS SUMMARY | 2024-02-15 13:10 | XMS_ITS | Continuity of Care Document ---
Author Organization [facility] [facility] Address [address] [place] [address], [address] [place] [address]- Care Team Providers Care Jazz Singer Name Role Phone [place] , Hazel Soriano Primary Care Physician Encounter [facility] Date(s): 03/05/23 - 04/04/23 [facility]ist[facility]wyn [facility] [employer] [facility] [address], [address] [place], [place] [address] Allergies, Adverse Reactions, Alerts No Known Allergies [...] 11 Refills, Maintenance, 03/03/23 10:18:00 EDT, Tablet, [facility], Partial fill upon patient request [...] Refills, Maintenance, 04/16/20 13:33:00 EDT, ER Tablet, [facility], 155.4, cm, 01/03/20 11:16:00 EST, Height, 100, kg, 01/03/20 11:16:00 EST, Dry Weight Start Date: 04/16/20 Status: Ordered mirabegron 50 mg oral tablet, extended release 1 tablet = 50 mg, By Mouth, Daily, do not crush or chew, # 30 tablet, 11 Refills, Maintenance, 08/11/22 12:51:00 EDT, ER Tablet, [facility], 153.7, cm, 07/11/22 10:57:00 EDT, Height, 91.8, kg, 04/28/22 10:58:00 EDT, Dry Weight Start Date: 08/11/22 Status: Ordered NovoLOG FlexPen 100 units/mL subcutaneous solution Subcutaneous Injection, 3 times a day before meals, 0 Refills, Maintenance, 07/01/16 9:50:36 Start Date: 07/01/16 Status: Ordered nystatin topical [id number] u/gm powder See Instructions, APPLY TO THE AFFECTED AREA(S) TOPICALLY TWICE DAILY, # 60 Gm, 2 Refills, [facility], 30, APPLY TO THE AFFECTED AREA(S) TOPICALLY TWICE DAILY, 157.5, cm, 10/28/2111:02:00 EST, Height, 45.8, kg, 05/01/21 11:09:00 E... Start Date: 11/25/21 Status: Ordered omeprazole 20 mg oral delayed release tablet 1 tablet = 20 mg, By Mouth, Daily, 0 Refills, Maintenance, 12/29/16 15:04:06 Start Date: 12/29/16 Status: Ordered Pen [place], 31 G x 5 mm BD Ultra [...] 3 Refills, Maintenance, 06/18/22 11:02:00 EDT, Solution, [facility], Partial fill upon patient request [...] Team Personnel Name: Lashay Anderson RN Position: [facility] RN Member Role: Primary Care Nurse Name: Hazel Kilgore MD Position: [facility] Outreach Member Role: PCP Address: Address: [address] [place] [address] [place] [address] Name: Sally Ochoa RN Position: [facility] RN Supv Member Role: Primary Care Nurse Name: Hazel James RN Position: [facility] RN Member Role: Primary Care Nurse Name: Anastasia Wright RN Position: [facility] RN Member Role: Primary Care Nurse Name: Monique Kohli RN Position: [facility] Hospital Associate Financial Advisor Member Role: Primary Care Nurse Name: Maxine Stewart RN Position: [facility] RN Member Role: Primary Care Nurse Name: Delma Harrell RN Position: [facility] Onco RN Member Role: Primary Care Nurse Care Team Related Persons Name: WAYNEMITRA Address: [address] [address] Name: JOYCE ALCALA Address: [address] [address]
--- OUTSIDE RECORDS SUMMARY | 2024-02-15 13:10 | XMS_ITS | Continuity of Care Document ---
Author Organization [facility] Address [address] [place] [address]- Care Team Providers Care Electric Engine Mechanic Name Role Phone Hazel Kilgore MD Primary Care Physician [place] [facility] [place]s): 07/11/22 - 08/10/22 [facility] [address] [place] [id number] Attending Physician: Jeremy Gaston Admitting [...] 11 Refills, Maintenance, 03/25/22 11:33:00 EDT, Tablet, [facility], Partial fill upon patient request [...] Refills, Maintenance, 04/16/20 13:33:00 EDT, ER Tablet, [facility], 155.4, cm, 01/03/20 11:16:00 EST, Height, 100, kg, 01/03/20 11:16:00 EST, Dry Weight Start Date: 04/16/20 Status: Ordered mirabegron 50 mg oral tablet, extended release 1 tablet = 50 mg, By Mouth, Daily, do not crush or chew, # 30 tablet, 1 Refills, Maintenance, 07/04/22 11:18:00 EDT, ER Tablet, [facility], 153.7, cm, 04/28/22 10:58:00 EDT, Height, 91.8, kg, 04/28/22 10:58:00 EDT, Dry Weight Start Date: 07/04/22 Status: Ordered NovoLOG FlexPen 100 units/mL subcutaneous solution Subcutaneous Injection, 3 times a day before meals, 0 Refills, Maintenance, 07/01/16 9:50:36 Start Date: 07/01/16 Status: Ordered nystatin topical [id number] u/gm powder See Instructions, APPLY TO THE AFFECTED AREA(S) TOPICALLY TWICE DAILY, # 60 Gm, 2 Refills, [facility], 30, APPLY TO THE AFFECTED AREA(S) TOPICALLY TWICE DAILY, 157.5, cm, 10/28/2111:02:00 EST, Height, 45.8, kg, 05/01/21 11:09:00 E... Start Date: 11/25/21 Status: Ordered omeprazole 20 mg oral delayed release tablet 1 tablet = 20 mg, By Mouth, Daily, 0 Refills, Maintenance, 12/29/16 15:04:06 Start Date: 12/29/16 Status: Ordered Pen [place], 31 G x 5 mm BD Ultra [...] mL, 3 Refills, Maintenance, 06/18/22 11:02:00 EDT, Ramon, [facility], Partial fill upon patient request [...] 20 mm Confirmed 10/07/16 Active Obese class II Confirmed Active Seborrheic keratoses Confirmed Active Type 2 diabetes mellitus Confirmed Active 1T Spot Positive 10/20/2016 Social History Social History Type Response Smoking Status Former smoker; Tobac co user in household: No; Type: Cigarettes; Other: Quit 24 years ago; entered on: 12/29/16 Sex Patient Care team information Personnel Name: Hazel Kilgore MD Address: Address: [address] [place] [address] [address] [place], [place] [address]
--- OUTSIDE RECORDS SUMMARY | 2024-02-15 13:10 | XMS_ITS | Continuity of Care Document ---
Author Organization [facility] [employer] Address [address] [facility], [address]t [place] [address]- Care Team Providers Care Community Development Planner Name Role Phone [place] , Hazel Soriano Primary Care Physician En[place] [facility] Date(s): 07/05/21 - [facility]04[facility] [address], [address]th [place] [address]- Allergies, Adverse Reactions, Alerts Substance Reaction Severity [...] sensors, See Instructions, # 2 each, Refills 3, Tot. Refills 3, Maintenance, scanreader over sensor 7 times a day check blood sgars E11.9, 07/03/21 12:55:00 EDT, Supply, 157.5, cm,06/14/21 11:18:00 EDT, Height, 45.8, kg, 05/01/21 1... Start Date: 07/03/21 Status: Ordered Freestyle Vik Monitor See Instructions, [...] Refills, Maintenance, 04/16/20 13:33:00 EDT, ER Tablet, [facility], 155.4, cm, 01/03/20 11:16:00 EST, Height, 100, kg, 01/03/20 11:16:00 EST, Dry Weight Start Date: 04/16/20 Status: Ordered mirabegron 50 mg oral tablet, extended release 1 tablet = 50 mg, By Mouth, Daily, do not crush or chew, # 30 tablet, 5 Refills, Maintenance, 07/05/21 12:50:00 EDT, ER Tablet, [facility], 157.5, cm, 06/14/21 11:18:00 EDT, Height, 45.8, kg, 05/01/21 11:09:00 EDT, Dry Weight Start Date: 07/05/21 Status: Ordered NovoLOG FlexPen 100 units/mL subcutaneous solution Subcutaneous Injection, 3 times a day before meals, 0 Refills, Maintenance, 07/01/16 9:50:36 Start Date: 07/01/16 Status: Ordered nystatin topical 200672 u/gm powder 1 application, Topically, 2 times a day, # 60 Gm, 2 Refills, Maintenance, 05/01/21 15:29:00 EDT, Powder, [facility], Partial fill upon patient request if the prescription is for aschedule II opioid drug., 1 application Topically 2... Start Date: 05/01/21 Status: Ordered omeprazole 20 mg oral delayed release tablet 1 tablet = 20 mg, By Mouth, Daily, 0 Refills, Maintenance, 12/29/16 15:04:06 Start Date: 12/29/16 Status: Ordered Pen [place], 31 G x 5 mm BD Ultra Fine III Maintenance, 07/01/16 9:52:01, Compound Start Date: 07/01/16 Status: Ordered Senna 2 TABS, By Mouth, Daily, 0 Refills, Maintenance, 09/15/18 11:48:15 EST Start Date: 09/15/18 Status: Ordered Trulicity Pen 0.75 mg/0.5 mL subcutaneous solution 0.5 mL = 0.75 mg, Subcutaneous Injection, Every week, rotate injection sites, # 2.5 mL, 3 Refills, Maintenance, 06/14/21 14:51:00 EDT, Solution, [facility], Partial fill upon patient request if the prescription is for a schedule II... Start Date: 06/14/21 Status: Ordered Vitamin C By Mouth, Daily, [...]
--- OUTSIDE RECORDS SUMMARY | 2024-02-15 13:10 | XMS_ITS | Continuity of Care Document ---
Author Organization [facility] Address [address] [place] [address]- Care Team Providers Care Internal Medicine Hospitalist Name Role Phone Magui Hazel FELIPE Primary Care Physician Encounter [facility] Date(s): 08/06/21 - 09/05/[address] [address] Attending Physician: Jeremy Gaston Admitting Physician: AdmtrJeremy Referring Physician: AdmtrJeremy Allergies, Adverse Reactions, Alerts [...] Refills, Maintenance, 04/16/20 13:33:00 EDT, ER Tablet, [facility], 155.4, cm, 01/03/20 11:16:00 EST, Height, 100, kg, 01/03/20 11:16:00 EST, Dry Weight Start Date: 04/16/20 Status: Ordered mirabegron 50 mg oral tablet, extended release 1 tablet = 50 mg, By Mouth, Daily, do not crush or chew, # 30 tablet, 5 Refills, Maintenance, 07/05/21 12:50:00 EDT, ER Tablet, [facility], 157.5, cm, 06/14/21 11:18:00 EDT, Height, 45.8, kg, 05/01/21 11:09:00 EDT, Dry Weight Start Date: 07/05/21 Status: Ordered NovoLOG FlexPen 100 units/mL subcutaneous solution Subcutaneous Injection, 3 times a day before meals, 0 Refills, Maintenance, 07/01/16 9:50:36 Start Date: 07/01/16 Status: Ordered nystatin topical 563083 u/gm powder 1 application, Topically, 2 times a day, # 60 Gm, 2 Refills, Maintenance, 05/01/21 15:29:00 EDT, Powder, [facility], Partial fill upon patient request if the prescription is for aschedule II opioid drug., 1 application Topically 2... Start Date: 05/01/21 Status: Ordered omeprazole 20 mg oral delayed release tablet 1 tablet = 20 mg, By Mouth, Daily, 0 Refills, Maintenance, 12/29/16 15:04:06 Start Date: 12/29/16 Status: Ordered Pen [place], 31 G x 5 mm BD Ultra [...] 3 Refills, Maintenance, 08/07/21 12:51:00 EDT, Solution, [facility], Partial fill upon patient request [...]
--- OUTSIDE RECORDS SUMMARY | 2024-02-15 13:10 | XMS_ITS | Continuity of Care Document ---
Author Organization [facility] Joel [employer] Address [address] [facility] [address], [address] [place] [address]- Care Team Providers Care Plate Developer Name Role Phone Magui Hazel FELIPE Primary Care Physician Encounter [facility] [place] [facility] R [id number] Date(s): 08/04/23 - 09/03/23 [facility] Phillgwyn [facility]erson[facility] [address], [address]th [place] [address]- Attending Physician: Jeremy Gaston Admitting Physician: Jeremy [...] 0 Refills, Maintenance, 07/23/23 11:25:00 EDT, Tablet, [facility], Partial fill upon patient request [...] 11 Refills, Maintenance, 03/03/23 10:18:00 EDT, Tablet, [facility], Partial fill upon patient request [...] Maintenance, 07/23/23 11:24:00 EDT,Route to Pharmacy Electronically, [facility], Partial fill upon patient requestif the prescription is for a schedule II opioid roshan... Start Date: 07/23/23 Status: Ordered mirabegron 50 mg oral tablet, extended release 1 tablet = 50 mg, By Mouth, Daily, do not crush or chew, # 30 tablet, 11 Refills, Maintenance, 08/11/22 12:51:00 EDT, ER Tablet, [facility], 153.7, cm, 07/11/22 10:57:00 EDT, [...] mL, 3 Refills, Maintenance, 08/12/23 16:09:00 EDT, [facility], 159, cm, 07/23/23 11:39:00 EDT, Height, [...] Safety Implantable Status Assigning Authority Unknown Unknown [id number] Unknown 04/08/26 Unknown Unknown Active Unk nown Patient Care team information Care Team Personnel Name: Lashay Anderson RN Position: [facility] RN Member Role: Primary Care Nurse Name: Hazel Kilgore MD Position: [facility] Outreach Member Role: PCP Address: Address: [address] [place] [address] [place] [address] Name: Hazel James RN Position: [facility] RN Member Role: Primary Care Nurse Name: Anastasia Wright RN Position: [facility] RN Member Role: Primary Care Nurse Name: Monique Kohli RN Position: [facility] Hospital Cello Teacher Member Role: Primary Care Nurse Name: Maxine Stewart RN Position: [facility] RN Member Role: Primary Care Nurse Name: Delma Harrell RN Position: [facility] Onco RN Member Role: Primary Care Nurse Care Team Related Persons Name: ROSANA MITRA Address: [address] [place] [address] Name: JOYCE ALCALA Address: [address] [place] [address]
--- OUTSIDE RECORDS SUMMARY | 2024-02-15 13:10 | XMS_ITS | Continuity of Care Document ---
Author Organization [facility] Address [address] [place] [address]- Care Team Providers Care Family Support Specialist Name Role Phone Hazel Kilgore MD Primary Care Physician Encounter [facility] ACCT R [id number] Date(s): 01/28/24 - 02/04/24 [facility] [address] [place] [id number] Attending Physician: Anny Ribeiro MD Referring Physician: Hazel Kilgore MD Allergies, Adverse Reactions, Alerts No Known Allergies Medications amLODIPine 5 mg oral tablet 5 mg, 1, tablet, By Mouth, Daily, Refills 0, Maintenance, 03/12/17 11:32:25 Start Date: 03/12/17 Status: Ordered apixaban 5 mg oral tablet = 5 mg, By Mouth, 2 times a day, # 60 tablet, 0 Refills, Maintenance, 07/23/23 11:25:00 EDT, Tablet, [facility], Partial fill upon patient request [...] Ordered Farxiga 10 mg oral tablet 1 tablet, By Mouth, Daily in AM, # 30 tablet, 11 Refills, Maintenance, 01/30/24 16:21:00 EDT, [facility], 159, cm, 01/28/24 11:15:00 EDT, Height, 86.2, kg, 08/04/23 11:45:00 EDT, Dry Weight Start Date: 01/30/24 Status: Ordered ferrous sulfate 325 mg oral [...] Maintenance, 07/23/23 11:24:00 EDT,Route to Pharmacy Electronically, [facility], Partial fill upon patient requestif the prescription is for a schedule II opioid roshan... Start Date: 07/23/23 Status: Ordered mirabegron 50 mg oral tablet, extended release 1 tablet = 50 mg, By Mouth, Daily, do not crush or chew, # 30 tablet, 11 Refills, Maintenance, 08/11/22 12:51:00 EDT, ER Tablet, [facility], 153.7, cm, 07/11/22 10:57:00 EDT, [...] Start Date: 04/28/22 Status: Ordered Trulicity Pen 3 mg/0.5 mL subcutaneous solution = 3 mg, Subcutaneous Infusion, Every week, # 6 mL, 3 Refills, Maintenance, 10/08/23 10:28:00 EST, [facility], Partial fill upon patient request if the prescription is for a schedule II opioid drug., 159, cm, 10/08/23 9:48:00 EST, H... Start Date: 10/08/23 Status: Ordered Vitamin C By Mouth, Daily, [...] mellitus Confirmed Active 1T Spot Positive 10/20/2016 Vital Signs Most recent to oldest [Reference Range]: 1 Height 159 cm (01/28/24 11:15 AM) Weight 82.2 kg (01/28/24 11:15 AM) Pulse Rate [55-90 bpm] 62 bpm (01/28/24 11:15 AM) Body Mass Index [18.5-24.99 kg/m2] 32.51 kg/m2 *>HHI* (01/28/24 11:15 AM) Blood Pressure [90-138/55-84 mm Hg] 132/ 40mm Hg (01/28/24 11:15 AM) Respiratory Rate [16-30 br/min] 16 br/mi n (01/28/24 11:15 AM) Blood pressure sites Arm, right (01/28/24 11:15 AM) Weight Obtained Via Bed scale (01/28/24 11:15 AM) Social History Social History Type Response [...] Safety Implantable Status Assigning Authority Unknown Unknown [id number] Unknown 04/08/26 Unknown Unknown Active Abdelrahman silva Note * Racheal Christopher: PERFORM, SIGN, VERIFY Event Display: Patient Education/Instruction Authored Date: [id number] [facility] Clinical Summary Name MARGARITA INNA SANTANA Age 78 Years 1945 PCP Hazel Kilgore MD PCP Visit Date 01/28/2024 10:49:00 Additional Instructions: Scheduled Appointments?? Future Appointments ?Diabetic??Teachi ?Phone:??--?Fax:??-- ?Appt. Date:??03/03/2024?11:00 AM ?Scheduled Provider:??Luanne Trujillo Follow-Up Instructions ?? With: Address: When: [address], [place] [address] Within 3 months Comments: [place] Diagnosis Medications: Please continue your medications until treatment is completed or stopped by your provider. Discuss any questions related to medications with your provider. Medications to Continue with No Changes These medications were not printed or sent to your pharmacy Amlodipine (amLODIPine 5 mg oral tablet) 1 tab(s) Oral Daily. Next Dose: apixaban (apixaban 5 mg oral tablet) 5 Milligram Oral twice a day. Refills: 0. Next Dose: Ascorbic Acid (Vitamin C) Oral Daily. Next Dose: Aspirin (aspirin 81 mg oral tablet) 1 tab(s) Oral Daily. Next Dose: Calcium And Vitamin D Combination (Calcium 600 +D) Oral. Next Dose: dapagliflozin (Farxiga 10 mg oral tablet) 1 tab(s) Oral Daily. Refills: 11. Next Dose: Doxazosin (doxazosin 4 mg oral tablet) 1 tab(s) Oral Daily. Next Dose: dulaglutide (Trulicity Pen 3 mg/0.5 mL subcutaneous solution) 3 Milligram Subcutaneous Infusion every week. Refills: 3. Next Dose: Ferrous Sulfate (ferrous sulfate 325 mg oral tablet) 1 tab(s) Oral 3 times a day. Next Dose: Furosemide (furosemide 40 mg oral tablet) 1 tab(s) Oral Daily. Next Dose: Gabapentin (gabapentin 600 mg oral tablet) 1 tab(s) Oral 3 times a day. Next Dose: Insulin Aspart (NovoLOG FlexPen 100 units/mL subcutaneous solution) Subcutaneous Injection 3 times a day before meals. Next Dose: Insulin Glargine (Lantus Solostar Pen 100 units/mL subcutaneous solution) 30 unit(s) Subcutaneous Injection Daily at Bedtime. Next Dose: Isosorbide Mononitrate (Imdur 30 mg oral tablet, extended release) 1 tab(s) Oral Daily in the morning. Next Dose: Lisinopril (lisinopril 30 mg oral tablet) 1 tab(s) Oral Daily. Next Dose: Magnesium Oxide (magnesium oxide 400 mg oral tablet) 1 tab(s) Oral Daily. Next Dose: Metoprolol (metoprolol 25 mg oral tablet, extended release) 25 Milligram Oral Daily. Refills: 0. Next Dose: mirabegron (mirabegron 50 mg oral tablet, extended release) 1 tab(s) Oral Daily. do not crush or chew. Refills: 11. Next Dose: Omeprazole (omeprazole 20 mg oral delayed release tablet) 1 tab(s) Oral Daily. Next Dose: Rosuvastatin (Crestor 20 mg oral tablet) 1 tab(s) Oral Daily at Bedtime. Next Dose: Tramadol (traMADol 50 mg oral tablet) 1 tab(s) Oral Daily as needed Pain , Severe. Next Dose: Allergy Info:?? NKA Medications Given This Visit Future Orders ?No future orders Future Orders ?No future orders Vital Signs Height 159 cm Weight 82.2 kg BMI 32.51 kg/m2 Blood Pressure 132 mm Hg/40 mm Hg Temperature Pulse Rate 62 bpm Respiratory Rate 16 br/min 02 Sat Mode of Delivery / You can now view a summary of your hospital visit from the comfort of your home through a free online portal called [employer]. [employer] is a website that allows you to securely view your medical information including discharge summary, medications and follow-up visits. ??You can alsosend a secure electronic message to your doctor???s office to request appointments, renew medications or just ask a question. You can enroll at [email or web address] or register during your next office visit. Disclaimer:?? The information provided is of a general nature and is intended to be used in conjunction with the recommendations and advice of your health care practitioner. ??Every effort has been made to ensure that the information provided is accurate and complete at the time it is provided to you however, as your needs change, or, as new ??information becomes available, different or additional instructions may be required. If you have questions, please consult with your primary care provider or pharmacist, as appropriate. ??This information is not intended to serve as substitution for assessment and evaluation by a qualified health care provider. If you do not have a primary care provider, you may find a [facility] provider by calling [facility] Link at [phone]. [facility], in keeping with [facility] guidance, no longer requires face masks for staff, patientsor visitors in most situations. Similar to time spent indoors at other locations, there is the chance that you were exposed to respiratory viruses during your time with us (such as flu or COVID-19).? If you develop symptoms concerning for a viral respiratory infection, please seek testing (and treatment if indicated) from your medical provider or home test kit. For information about the plan of care including goals and instructions for your diagnosis, please see the patient education orders section of this document. Patient Education Materials?? The content of this educational material or handout may have been modified, supplemented, or adapted from its original content and format to support your individualized medical care. Patient Care team information Care Team Personnel Name: Lashay Anderson RN Position: [facility] RN Member Role: Primary Care Nurse Name: Hazel Kilgore MD Position: [facility] Outreach Member Role: PCP Address: Address: [address] [place] [address] [place] [id number] Name: Hazel James RN Position: [facility] RN Member Role: Primary Care Nurse Name: Anastasia Wrihgt RN Position: [facility] RN Member Role: Primary Care Nurse Name: Monique Kohli RN Position: [facility] Hospital Corrections Unit Supervisor Member Role: Primary Care Nurse Name: Maxine Stewart RN Position: [facility] RN Member Role: Primary Care Nurse Name: Delma Harrell RN Position: [facility] Onco RN Member Role: Primary Care Nurse Care Team Related Persons Name: WAYNEMITRA Address: [address] [address] Name: JOYCE ALCALA Address: [address] [address]
--- OUTSIDE RECORDS SUMMARY | 2024-02-15 13:10 | XMS_ITS | Continuity of Care Document ---
Author Organization [facility] Address [address] [place] [address]- Care Team Providers Care Etl Data Architect Name Role Phone Hazel Kilgore MD Primary Care Physician Encounter [facility] Date(s): 05/27/23 - 06/26/23 [facility] [address] [place] [id number] Allergies, Adverse Reactions, Alerts No Known Allergies [...] 11 Refills, Maintenance, 03/03/23 10:18:00 EDT, Tablet, [facility], Partial fill upon patient request if [...] check blood sugars change every 14 days E11.9, 06/17/23 8:36:00 EDT, Supply, 159.94, cm, 04/27/23 9:08:00 EDT, He... Start Date: 06/17/23 Status: Ordered Freestyle Vik Monitor See Instructions, [...] Refills, Maintenance, 04/16/20 13:33:00 EDT, ER Tablet, [facility], 155.4, cm, 01/03/20 11:16:00 EST, Height, 100, kg, 01/03/20 11:16:00 EST, Dry Weight Start Date: 04/16/20 Status: Ordered mirabegron 50 mg oral tablet, extended release 1 tablet = 50 mg, By Mouth, Daily, do not crush or chew, # 30 tablet, 11 Refills, Maintenance, 08/11/22 12:51:00 EDT, ER Tablet, [facility], 153.7, cm, 07/11/22 10:57:00 EDT, Height, 91.8, kg, 04/28/22 10:58:00 EDT, Dry Weight Start Date: 08/11/22 Status: Ordered NovoLOG FlexPen 100 units/mL subcutaneous solution Subcutaneous Injection, 3 times a day before meals, 0 Refills, Maintenance, 07/01/16 9:50:36 Start Date: 07/01/16 Status: Ordered nystatin topical [id number] u/gm powder See Instructions, APPLY TO THE AFFECTED AREA(S) TOPICALLY TWICE DAILY, # 60 Gm, 2 Refills, [facility], 30, APPLY TO THE AFFECTED AREA(S) TOPICALLY TWICE DAILY, 157.5, cm, 10/28/2111:02:00 EST, Height, 45.8, kg, 05/01/21 11:09:00 E... Start Date: 11/25/21 Status: Ordered omeprazole 20 mg oral delayed release tablet 1 tablet = 20 mg, By Mouth, Daily, 0 Refills, Maintenance, 12/29/16 15:04:06 Start Date: 12/29/16 Status: Ordered Pen [place], 31 G x 5 mm BD Ultra [...] 3 Refills, Maintenance, 05/26/23 11:55:00 EDT, Solution, [facility], Partial fill upon patient request if [...] SOUTH Outreach Member Role: PCP Address: Address: [address] [place] [address] [place] [id number] Name: Sally Ochoa RN Position: [facility] RN Supv Member Role: Primary Care Nurse Name: Hazel James RN Position: [facility] RN Member Role: Primary Care Nurse Name: Anastasia Wright RN Position: [facility] RN Member Role: Primary Care Nurse Name: Monique Kohli RN Position: [facility] Hospital Gasket Maker Member Role: Primary Care Nurse Name: Maxine Stewart RN Position: [facility] RN Member Role: Primary Care Nurse Name: Delma Harrell RN Position: [facility] Onco RN Member Role: Primary Care Nurse Care Team Related Persons Name: ROSANAMITRA Address: home [address] [place] [address] Name: JOYCE ALCALA Address: home [address] [place] [address]
--- OUTSIDE RECORDS SUMMARY | 2024-02-15 13:10 | XMS_ITS | Continuity of Care Document ---
Author Organization [facility] Address [address] [place] [address]- Care Team Providers Care Football Scout Name Role Phone Butts Hazel FELIPE Primary Care Physician Encounter [facility] [place] Date(s): 11/18/19 - 03/21/[address] [address] [facility] Discharge Disposition: A-D/C Home Attending Physician: Didi Duran MD Admitting Physician: Didi Duran MD Referring Physician: Didi Duran MD Allergies, Adverse Reactions, Alerts Substance Reaction [...] 15:04:06 Start Date: 12/29/16 Status: Ordered Pen [place], 31 G x 5 mm BD Ultra [...]
--- OUTSIDE RECORDS SUMMARY | 2024-02-15 13:10 | XMS_ITS | Continuity of Care Document ---
Author Organization [facility] Address [address] [place] [address]- Care Team Providers Care Narcotics And/Or Vice Detective Name Role Phone Hazel Kilgore MD Primary Care Physician Encounter [facility] ACCT R [id number] Date(s): 11/06/21 - 12/06/21 [facility] [address] [place], [place] [address] Attending Physician: Chaparro Beltran MD Referring Physician: Hazel Kilgore MD Allergies, [...] Refills, Maintenance, 04/16/20 13:33:00 EDT, ER Tablet, [facility], 155.4, cm, 01/03/20 11:16:00 EST, Height, 100, kg, 01/03/20 11:16:00 EST, Dry Weight Start Date: 04/16/20 Status: Ordered mirabegron 50 mg oral tablet, extended release 1 tablet = 50 mg, By Mouth, Daily, do not crush or chew, # 30 tablet, 5 Refills, Maintenance, 07/05/21 12:50:00 EDT, ER Tablet, [facility], 157.5, cm, 06/14/21 11:18:00 EDT, Height, 45.8, kg, 05/01/21 11:09:00 EDT, Dry Weight Start Date: 07/05/21 Status: Ordered NovoLOG FlexPen 100 units/mL subcutaneous solution Subcutaneous Injection, 3 times a day before meals, 0 Refills, Maintenance, 07/01/16 9:50:36 Start Date: 07/01/16 Status: Ordered nystatin topical [id number] u/gm powder See Instructions, APPLY TO THE AFFECTED AREA(S) TOPICALLY TWICE DAILY, # 60 Gm, 2 Refills, [facility], 30, APPLY TO THE AFFECTED AREA(S) TOPICALLY TWICE DAILY, 157.5, cm, 10/28/2111:02:00 EST, Height, 45.8, kg, 05/01/21 11:09:00 E... Start Date: 11/25/21 Status: Ordered omeprazole 20 mg oral delayed release tablet 1 tablet = 20 mg, By Mouth, Daily, 0 Refills, Maintenance, 12/29/16 15:04:06 Start Date: 12/29/16 Status: Ordered Pen [place], 31 G x 5 mm BD Ultra [...] 3 Refills, Maintenance, 08/07/21 12:51:00 EDT, Solution, [facility], Partial fill upon patient request [...]
--- OUTSIDE RECORDS SUMMARY | 2024-02-15 13:10 | XMS_ITS | Continuity of Care Document ---
Author Organization [facility] Phill Maldonado [facility] Address [address], [address] [place] [address]- Care Team Providers Care Revenue Integrity Analyst Name Role Phone Hazel Kilgore MD Primary Care Physician [place] [facility] [place] [id number] Date(s): 06/27/20 - 07/27/20 [facility] Phillgwyn RobersonDokkankoms [facility] [address], [address]th [place] [address]- [facility] Attending Physician: Mrailin, Jeremy Admitting Physician: AdmtrJeremy Referring Physician: Admtr, Ar8 Allergies, Adverse Reactions, Alerts Substance Reaction Severity [...] Refills, Maintenance, 04/16/20 13:33:00 EDT, ER Tablet, [facility], 155.4, cm, 01/03/20 11:16:00 EST, Height, 100, kg, 01/03/20 11:16:00 EST, Dry Weight Start Date: 04/16/20 Status: Ordered mirabegron 50 mg oral tablet, extended release 1 tablet = 50 mg, By Mouth, Daily, do not crush or chew, # 30 tablet, 5 Refills, Maintenance, 06/27/20 14:13:00 EDT, ER Tablet, [facility], 155.4, cm, 04/30/20 11:09:00 EDT, Height, [...] 15:04:06 Start Date: 12/29/16 Status: Ordered Pen [place], 31 G x 5 mm BD Ultra [...]
--- OUTSIDE RECORDS SUMMARY | 2024-02-15 13:10 | XMS_ITS | Continuity of Care Document ---
Author Organization [facility] Phill Maldonado [employer] [facility] Address [address] [place] [address], [address] [place] [address]- Care Team Providers Care Pearl Hand Name Role Phone Magui , Hazel Soriano Primary Care Physician Encounter [facility] [place] Date(s): 10/27/22 - 11/26/22 [facility] Greensburggwyn RobersonZinc softwares [facility] [address] [facility], [address] [place], [place] [address] Allergies, Adverse Reactions, Alerts No Known Allergies [...] 11 Refills, Maintenance, 03/25/22 11:33:00 EDT, Tablet, [facility], Partial fill upon patient request if [...] Refills, Maintenance, 04/16/20 13:33:00 EDT, ER Tablet, [facility], 155.4, cm, 01/03/20 11:16:00 EST, Height, 100, kg, 01/03/20 11:16:00 EST, Dry Weight Start Date: 04/16/20 Status: Ordered mirabegron 50 mg oral tablet, extended release 1 tablet = 50 mg, By Mouth, Daily, do not crush or chew, # 30 tablet, 11 Refills, Maintenance, 08/11/22 12:51:00 EDT, ER Tablet, [facility], 153.7, cm, 07/11/22 10:57:00 EDT, Height, 91.8, kg, 04/28/22 10:58:00 EDT, Dry Weight Start Date: 08/11/22 Status: Ordered NovoLOG FlexPen 100 units/mL subcutaneous solution Subcutaneous Injection, 3 times a day before meals, 0 Refills, Maintenance, 07/01/16 9:50:36 Start Date: 07/01/16 Status: Ordered nystatin topical [id number] u/gm powder See Instructions, APPLY TO THE AFFECTED AREA(S) TOPICALLY TWICE DAILY, # 60 Gm, 2 Refills, [facility], 30, APPLY TO THE AFFECTED AREA(S) TOPICALLY TWICE DAILY, 157.5, cm, 10/28/2111:02:00 EST, Height, 45.8, kg, 05/01/21 11:09:00 E... Start Date: 11/25/21 Status: Ordered omeprazole 20 mg oral delayed release tablet 1 tablet = 20 mg, By Mouth, Daily, 0 Refills, Maintenance, 12/29/16 15:04:06 Start Date: 12/29/16 Status: Ordered Pen [place], 31 G x 5 mm BD Ultra [...] 3 Refills, Maintenance, 06/18/22 11:02:00 EDT, Solution, [facility], Partial fill upon patient request if [...] Team Personnel Name: Lashay Anderson RN Position: [facility] RN Member Role: Primary Care Nurse Name: Hazel Kilgore MD Position: [facility] Outreach Member Role: PCP Address: Address: [address] [place] [address] [place] [id number] Name: Sally Ochoa RN Position: [facility] RN Supv Member Role: Primary Care Nurse Name: Hazel James RN Position: [facility] RN Member Role: Primary Care Nurse Name: Anastasia Wright RN Position: [facility] RN Member Role: Primary Care Nurse Name: Monique Kohli RN Position: [facility] Hospital Airline Operations Agent Member Role: Primary Care Nurse Name: Maxine Stewart RN Position: [facility] RN Member Role: Primary Care Nurse Name: Delma Harrell RN Position: [facility] Onco RN Member Role: Primary Care Nurse Care Team Related Persons Name: MITRA WAYNE Address: [place] [address] Name: JOYCE ALCALA Address: home [address] [place] [address]
--- OUTSIDE RECORDS SUMMARY | 2024-02-15 13:10 | XMS_ITS | Continuity of Care Document ---
Author [facility] Address [address], [address] [place] [address]- Care Team Providers Care Mechanical Maintenance Name Role Phone Magui FELIPE, Hazel Soriano Primary Care Physician En[place] [facility] [place] Date(s): 06/23/23 - 07/23/23 [facility] Phill Haass [facility] [address] [facility] [address], 4th [place] [address]- Allergies, Adverse Reactions, Alerts No Known Allergies Medications amLODIPine 5 mg oral tablet 5 mg, 1, tablet, By Mouth, Daily, Refills 0, Maintenance, 03/12/17 11:32:25 Start Date: 03/12/17 Status: Ordered apixaban 5 mg oral tablet = 5 mg, By Mouth, 2 times a day, # 60 tablet, 0 Refills, Maintenance, 07/23/23 11:25:00 EDT, Tablet, [facility], Partial fill upon patient request [...] 11 Refills, Maintenance, 03/03/23 10:18:00 EDT, Tablet, [facility], Partial fill upon patient request [...] Maintenance, 07/23/23 11:24:00 EDT,Route to Pharmacy Electronically, [facility], Partial fill upon patient requestif the prescription is for a schedule II opioid roshan... Start Date: 07/23/23 Status: Ordered mirabegron 50 mg oral tablet, extended release 1 tablet = 50 mg, By Mouth, Daily, do not crush or chew, # 30 tablet, 11 Refills, Maintenance, 08/11/22 12:51:00 EDT, ER Tablet, [facility], 153.7, cm, 07/11/22 10:57:00 EDT, [...] 3 Refills, Maintenance, 05/26/23 11:55:00 EDT, Solution, [facility], Partial fill upon patient request [...] Safety Implantable Status Assigning Authority Unknown Unknown [id number] Unknown 04/08/26 Unknown Unknown Active Unk nown Patient Care team information Care Team Personnel Name: Lashay Anderson RN Position: [facility] RN Member Role: Primary Care Nurse Name: Hazel Kilgore MD Position: [facility] Outreach Member Role: PCP Address: Address: [address] [place] [address] [place] [address] [id number] Name: Hazel James RN Position: [facility] RN Member Role: Primary Care Nurse Name: Anastasia Wright RN Position: [facility] RN Member Role: Primary Care Nurse Name: Monique Kohli RN Position: [facility] Hospital Stenographer Print Shop Member Role: Primary Care Nurse Name: Maxine Stewart RN Position: [facility] RN Member Role: Primary Care Nurse Name: Delma Harrell RN Position: [facility] Onco RN Member Role: Primary Care Nurse Care Team Related Persons Name: MITRA WAYNE Address: [address] [address] Name: JOYCE ALCALA Address: [address] [address]
--- OUTSIDE RECORDS SUMMARY | 2024-02-15 13:10 | XMS_ITS | Continuity of Care Document ---
Author Organization [facility] Address [address] [place] [address]- Care Team Providers Care Road Contractor Name Role Phone Hazel Kilgore MD Primary Care Physician Encounter [facility] Date(s): 10/08/23 - 11/07/23 [facility] [address] [place] [id number] Attending Physician: Jeremy Gaston Admitting Physician: [...] 0 Refills, Maintenance, 07/23/23 11:25:00 EDT, Tablet, [facility], Partial fill upon patient request if [...] 11 Refills, Maintenance, 03/03/23 10:18:00 EDT, Tablet, [facility], Partial fill upon patient request if [...] Maintenance, 07/23/23 11:24:00 EDT,Route to Pharmacy Electronically, [facility], Partial fill upon patient requestif the prescription is for a schedule II opioid roshan... Start Date: 07/23/23 Status: Ordered mirabegron 50 mg oral tablet, extended release 1 tablet = 50 mg, By Mouth, Daily, do not crush or chew, # 30 tablet, 11 Refills, Maintenance, 08/11/22 12:51:00 EDT, ER Tablet, [facility], 153.7, cm, 07/11/22 10:57:00 EDT, Height, [...] mL, 3 Refills, Maintenance, 10/08/23 10:28:00 EST, [facility], Partial fill upon patient request if [...] Safety Implantable Status Assigning Authority Unknown Unknown [id number] Unknown 04/08/26 Unknown Unknown Active Unk nown Laboratory * Event Display: Laboratory Result Scanned Authored Date: [id number] Patient Care team information Care Team Personnel Name: Lashay Anderson RN Position: [facility] RN Member Role: Primary Care Nurse Name: Hazel Kilgore MD Position: [facility] Outreach Member Role: PCP Address: Address: [address] [place] [address] [place] [address] Name: Hazel James RN Position: [facility] RN Member Role: Primary Care Nurse Name: Anastasia Wright RN Position: [facility] RN Member Role: Primary Care Nurse Name: Monique Kohli RN Position: [facility] Hospital Semiautomatic Taper Operator Member Role: Primary Care Nurse Name: Maxine Stewart RN Position: [facility] RN Member Role: Primary Care Nurse Name: Delma Harrell RN Position: [facility] Onco RN Member Role: Primary Care Nurse Care Team Related Persons Name: WAYNEMITRA TREVIÑO Address: home [address] [place] [address] Name: JOYCE ALCALA Address: home [address] [place] [id number]
--- OUTSIDE RECORDS SUMMARY | 2024-02-15 13:11 | XMS_ITS | Continuity of Care Document ---
Author Organization [facility] Address [address] [place] [address]- Care Team Providers Care Shirt Creaser Name Role Phone Hazel Kilgore MD Primary Care Physician [place] [facility] [place] [id number] Date(s): 10/08/23 - 11/07/23 [facility] [address] [place] [address]- Attending Physician: Jeremy Gaston Admitting Physician: Jeremy [...] 0 Refills, Maintenance, 07/23/23 11:25:00 EDT, Tablet, [facility], Partial fill upon patient request [...] 11 Refills, Maintenance, 03/03/23 10:18:00 EDT, Tablet, [facility], Partial fill upon patient request [...] Maintenance, 07/23/23 11:24:00 EDT,Route to Pharmacy Electronically, [facility], Partial fill upon patient requestif the prescription is for a schedule II opioid roshanMirela Start Date: 07/23/23 Status: Ordered mirabegron 50 mg oral tablet, extended release 1 tablet = 50 mg, By Mouth, Daily, do not crush or chew, # 30 tablet, 11 Refills, Maintenance, 08/11/22 12:51:00 EDT, ER Tablet, [facility], 153.7, cm, 07/11/22 10:57:00 EDT, [...] mL, 3 Refills, Maintenance, 10/08/23 10:28:00 EST, [facility], Partial fill upon patient request [...] Safety Implantable Status Assigning Authority Unknown Unknown [id number] Unknown 04/08/26 Unknown Unknown Active Unk nown Patient Care team information Care Team Personnel Name: Lashay Anderson RN Position: [facility] RN Member Role: Primary Care Nurse Name: Hazel Kilgore MD Position: [facility] Outreach Member Role: PCP Address: Address: [address] [place] [address] [place] [phone] Name: Hazel James RN Position: [facility] RN Member Role: Primary Care Nurse Name: Anastasia Wright RN Position: [facility] RN Member Role: Primary Care Nurse Name: Monique Kohli RN Position: [facility] Hospital Flight Software Test Engineer Member Role: Primary Care Nurse Name: Maxine Stewart RN Position: [facility] RN Member Role: Primary Care Nurse Name: Delma Harrell RN Position: [facility] Onco RN Member Role: Primary Care Nurse Care Team Related Persons Name: MITRA WAYNE Address: home [address] [place] [address] Name: JOYCE ALCALA Address: [address] [address]
--- OUTSIDE RECORDS SUMMARY | 2024-02-15 13:11 | XMS_ITS | Continuity of Care Document ---
Author Organization [facility] Address [address] [facility], 4t [place] [address]- Care Team Providers Care Gas Main Fitter Helper Name Role Phone Hazel Kilgore MD Primary Care Physician Encounter [facility] [id number] Date(s): 12/27/21 - 01/03/22 [facility] Roberson[facility] [address] [facility], 4th [place] [address]- Attending Physician: Didi Duran MD Referring Physician: Hazel [...] Refills, Maintenance, 04/16/20 13:33:00 EDT, ER Tablet, [facility], 155.4, cm, 01/03/20 11:16:00 EST, Height, 100, kg, 01/03/20 11:16:00 EST, Dry Weight Start Date: 04/16/20 Status: Ordered mirabegron 50 mg oral tablet, extended release 1 tablet = 50 mg, By Mouth, Daily, do not crush or chew, # 30 tablet, 2 Refills, Maintenance, 12/13/21 11:13:00 EST, ER Tablet, [facility], 157.5, cm, 10/28/21 11:02:00 EST, Height, 45.8, kg, 05/01/21 11:09:00 EDT, Dry Weight Start Date: 12/13/21 Status: Ordered NovoLOG FlexPen 100 units/mL subcutaneous solution Subcutaneous Injection, 3 times a day before meals, 0 Refills, Maintenance, 07/01/16 9:50:36 Start Date: 07/01/16 Status: Ordered nystatin topical [id number] u/gm powder See Instructions, APPLY TO THE AFFECTED AREA(S) TOPICALLY TWICE DAILY, # 60 Gm, 2 Refills, [facility], 30, APPLY TO THE AFFECTED AREA(S) TOPICALLY TWICE DAILY, 157.5, cm, 10/28/2111:02:00 EST, Height, 45.8, kg, 05/01/21 11:09:00 E... Start Date: 11/25/21 Status: Ordered omeprazole 20 mg oral delayed release tablet 1 tablet = 20 mg, By Mouth, Daily, 0 Refills, Maintenance, 12/29/16 15:04:06 Start Date: 12/29/16 Status: Ordered Pen [place], 31 G x 5 mm BD Ultra [...] 3 Refills, Maintenance, 08/07/21 12:51:00 EDT, Solution, [facility], Partial fill upon patient request [...]
--- OUTSIDE RECORDS SUMMARY | 2024-02-15 13:11 | XMS_ITS | Continuity of Care Document ---
Author Organization [facility] Address [address] [place] [address]- Care Team Providers Care Security Systems Specialist Name Role Phone Magui Hazel FELIPE Primary Care Physician Encounter [facility] Date(s): 02/26/23 - 03/28/23 [facility] [address] [place] [id number] Allergies, Adverse Reactions, Alerts No [...] 11 Refills, Maintenance, 03/03/23 10:18:00 EDT, Tablet, [facility], Partial fill upon patient [...] Refills, Maintenance, 04/16/20 13:33:00 EDT, ER Tablet, [facility], 155.4, cm, 01/03/20 11:16:00 EST, Height, 100, kg, 01/03/20 11:16:00 EST, Dry Weight Start Date: 04/16/20 Status: Ordered mirabegron 50 mg oral tablet, extended release 1 tablet = 50 mg, By Mouth, Daily, do not crush or chew, # 30 tablet, 11 Refills, Maintenance, 08/11/22 12:51:00 EDT, ER Tablet, [facility], 153.7, cm, 07/11/22 10:57:00 EDT, Height, 91.8, kg, 04/28/22 10:58:00 EDT, Dry Weight Start Date: 08/11/22 Status: Ordered NovoLOG FlexPen 100 units/mL subcutaneous solution Subcutaneous Injection, 3 times a day before meals, 0 Refills, Maintenance, 07/01/16 9:50:36 Start Date: 07/01/16 Status: Ordered nystatin topical [id number] u/gm powder See Instructions, APPLY TO THE AFFECTED AREA(S) TOPICALLY TWICE DAILY, # 60 Gm, 2 Refills, [facility], 30, APPLY TO THE AFFECTED AREA(S) TOPICALLY TWICE DAILY, 157.5, cm, 10/28/2111:02:00 EST, Height, 45.8, kg, 05/01/21 11:09:00 E... Start Date: 11/25/21 Status: Ordered omeprazole 20 mg oral delayed release tablet 1 tablet = 20 mg, By Mouth, Daily, 0 Refills, Maintenance, 12/29/16 15:04:06 Start Date: 12/29/16 Status: Ordered Pen [place], 31 G x 5 mm BD Ultra [...] 3 Refills, Maintenance, 06/18/22 11:02:00 EDT, Solution, [facility], Partial fill upon patient [...] Team Personnel Name: Lashay Anderson RN Position: [facility] RN Member Role: Primary Care Nurse Name: Hazel Kilgore MD Position: [facility] Outreach Member Role: PCP Address: Address: [address] [place] [address] [place] [id number] Name: Sally Ochoa RN Position: [facility] RN Supv Member Role: Primary Care Nurse Name: Hazel James RN Position: [facility] RN Member Role: Primary Care Nurse Name: Anastasia Wright RN Position: [facility] RN Member Role: Primary Care Nurse Name: Monique Kohli RN Position: [facility] Hospital Photo Intern Member Role: Primary Care Nurse Name: Maxine Stewart RN Position: [facility] RN Member Role: Primary Care Nurse Name: Delma Harrell RN Position: [facility] Onco RN Member Role: Primary Care Nurse Care Team Related Persons Name: MITRA WAYNE Address: [address] [address] Name: JOYCE ALCALA Address: home [address] [place] [address]
--- OUTSIDE RECORDS SUMMARY | 2024-02-15 13:11 | XMS_ITS | Continuity of Care Document ---
Author Organization [facility] Address [address] [place] [address]- Care Team Providers Care Consumer Relations Specialist Name Role Phone [place] Hazel FELIPE Primary Care Physician Encounter [facility] Date(s): 12/27/19 - 01/06/[address] [address]- [facility] Attending Physician: Jeremy Gaston Admitting Physician: AdmtrJeremy Referring Physician: Admtr, ArFrancisco Javier Allergies, Adverse Reactions, Alerts Substance Reaction Severity [...] 15:04:06 Start Date: 12/29/16 Status: Ordered Pen [place], 31 G x 5 mm BD Ultra [...]
--- OUTSIDE RECORDS SUMMARY | 2024-02-15 13:11 | XMS_ITS | Continuity of Care Document ---
Author Organization [facility] Address [address] [place] [address]- Care Team Providers Care Hand Spray Operator Name Role Phone Hazel Kilgore MD Primary Care Physician Encounter [facility] Date(s): 09/20/21 - 10/20/21 [facility] [address] [place] [id number] Allergies, Adverse Reactions, Alerts Substance Reaction Severity [...] Refills, Maintenance, 04/16/20 13:33:00 EDT, ER Tablet, [facility], 155.4, cm, 01/03/20 11:16:00 EST, Height, 100, kg, 01/03/20 11:16:00 EST, Dry Weight Start Date: 04/16/20 Status: Ordered mirabegron 50 mg oral tablet, extended release 1 tablet = 50 mg, By Mouth, Daily, do not crush or chew, # 30 tablet, 5 Refills, Maintenance, 07/05/21 12:50:00 EDT, ER Tablet, [facility], 157.5, cm, 06/14/21 11:18:00 EDT, Height, 45.8, kg, 05/01/21 11:09:00 EDT, Dry Weight Start Date: 07/05/21 Status: Ordered NovoLOG FlexPen 100 units/mL subcutaneous solution Subcutaneous Injection, 3 times a day before meals, 0 Refills, Maintenance, 07/01/16 9:50:36 Start Date: 07/01/16 Status: Ordered nystatin topical [id number] u/gm powder 1 application, Topically, 2 times a day, # 60 Gm, 2 Refills, Maintenance, 05/01/21 15:29:00 EDT, Powder, [facility], Partial fill upon patient request if the prescription is for aschedule II opioid drug., 1 application Topically 2... Start Date: 05/01/21 Status: Ordered omeprazole 20 mg oral delayed release tablet 1 tablet = 20 mg, By Mouth, Daily, 0 Refills, Maintenance, 12/29/16 15:04:06 Start Date: 12/29/16 Status: Ordered Pen [place], 31 G x 5 mm BD Ultra [...] 3 Refills, Maintenance, 08/07/21 12:51:00 EDT, Solution, [facility], Partial fill upon patient [...]
--- OUTSIDE RECORDS SUMMARY | 2024-02-15 13:11 | XMS_ITS | Continuity of Care Document ---
Author Organization [facility] Address [address] [place] [address], 4t [place] [address]- Care Team Providers Care Hat Brim And Crown Laminating Operator Name Role Phone Hazel Kilgore MD Primary Care Physician En[facility] [id number] Date(s): 12/18/23 - 01/17/24 [facility]wyn RobersonK[facility] [address] [facility], 4th [address] [place], [place] [address] Attending Physician: Jeremy Gaston Admitting Physician: AdmJeremy [...] 0 Refills, Maintenance, 07/23/23 11:25:00 EDT, Tablet, [facility], Partial fill upon patient request [...] 11 Refills, Maintenance, 03/03/23 10:18:00 EDT, Tablet, [facility], Partial fill upon patient request [...] Maintenance, 07/23/23 11:24:00 EDT,Route to Pharmacy Electronically, [facility], Partial fill upon patient requestif the prescription is for a schedule II opioid roshan... Start Date: 07/23/23 Status: Ordered mirabegron 50 mg oral tablet, extended release 1 tablet = 50 mg, By Mouth, Daily, do not crush or chew, # 30 tablet, 11 Refills, Maintenance, 08/11/22 12:51:00 EDT, ER Tablet, [facility], 153.7, cm, 07/11/22 10:57:00 EDT, [...] mL, 3 Refills, Maintenance, 10/08/23 10:28:00 EST, [facility], Partial fill upon patient request if the prescription is for a schedule II opioid drug., 159, cm, 10/08/23 9:48:00 EST, H... Start Date: 10/08/23 Status: Ordered Vitamin C By Mouth, Daily, 0 Refills, Maintenance, 03/12/17 11:32:49 Start Date: 5/4/17 Status: Ordered Problem List Condition Confirmation Course [...] Safety Implantable Status Assigning Authority Unknown Unknown [id number] Unknown 04/08/26 Unknown Unknown Active Unk nown Patient Care team information Care Team Personnel Name: Lashay Anderson RN Position: [facility] RN Member Role: Primary Care Nurse Name: Hazel Kilgore MD Position: [facility] Outreach Member Role: PCP Address: Address: [address] [place] [address] [place] [phone] Name: Hazle James RN Position: [facility] RN Member Role: Primary Care Nurse Name: Anastasia Wright RN Position: [facility] RN Member Role: Primary Care Nurse Name: Monique Kohli RN Position: [facility] Hospital Svp Programmatic Tv Member Role: Primary Care Nurse Name: Maxine Stewart RN Position: [facility] RN Member Role: Primary Care Nurse Name: Delma Harrell RN Position: [facility] Onco RN Member Role: Primary Care Nurse Care Team Related Persons Name: MITRA WAYNE Address: home [address] [place] [address] Name: JOYCE ALCALA Address: [address] [place] [address]
--- OUTSIDE RECORDS SUMMARY | 2024-02-15 13:11 | XMS_ITS | Continuity of Care Document ---
Author Organization [facility] Address [address] [place] [address], [address] [place] [address]- Care Team Providers Care Fabricator Foam Rubber Name Role Phone Hazel Kilgore MD [id number] Date(s): 04/02/22 - 07/31/22 [facility]wyn RobersonWizzgos [facility] [address] [facility], [address] [place], [place] [address] Attending Physician: Didi Duran MD Admitting Physician: [...] 11 Refills, Maintenance, 03/25/22 11:33:00 EDT, Tablet, [facility], Partial fill upon patient request [...] Refills, Maintenance, 04/16/20 13:33:00 EDT, ER Tablet, [facility], 155.4, cm, 01/03/20 11:16:00 EST, Height, 100, kg, 01/03/20 11:16:00 EST, Dry Weight Start Date: 04/16/20 Status: Ordered mirabegron 50 mg oral tablet, extended release 1 tablet = 50 mg, By Mouth, Daily, do not crush or chew, # 30 tablet, 1 Refills, Maintenance, 07/04/22 11:18:00 EDT, ER Tablet, [facility], 153.7, cm, 04/28/22 10:58:00 EDT, Height, 91.8, kg, 04/28/22 10:58:00 EDT, Dry Weight Start Date: 07/04/22 Status: Ordered NovoLOG FlexPen 100 units/mL subcutaneous solution Subcutaneous Injection, 3 times a day before meals, 0 Refills, Maintenance, 07/01/16 9:50:36 Start Date: 07/01/16 Status: Ordered nystatin topical [id number] u/gm powder See Instructions, APPLY TO THE AFFECTED AREA(S) TOPICALLY TWICE DAILY, # 60 Gm, 2 Refills, [facility], 30, APPLY TO THE AFFECTED AREA(S) TOPICALLY TWICE DAILY, 157.5, cm, 10/28/2111:02:00 EST, Height, 45.8, kg, 05/01/21 11:09:00 E... Start Date: 11/25/21 Status: Ordered omeprazole 20 mg oral delayed release tablet 1 tablet = 20 mg, By Mouth, Daily, 0 Refills, Maintenance, 12/29/16 15:04:06 Start Date: 12/29/16 Status: Ordered Pen [place], 31 G x 5 mm BD Ultra [...] 3 Refills, Maintenance, 06/18/22 11:02:00 EDT, Solution, [facility], Partial fill upon patient request [...] 24 years ago; entered on: 12/29/16 Sex Care Team Personnel Name: Hazel Kilgore MD Address: [address] [place] [address] [address]
--- OUTSIDE RECORDS SUMMARY | 2024-02-15 13:11 | XMS_ITS | Continuity of Care Document ---
Author Organization [facility] IDENTIFICATION CLERK Oncolog y Address [address] [place] [address]- Care Team Providers Care Industrial Sales Representative Name Role Phone Hazel Kilgore MD Primary Care Physician Encounter [facility] Date(s): 06/06/20 - 08/18/20 [facility] IDENTIFICATION CLERK Oncology [address] [place] [address]- [facility] Attending Physician: Gigi Carter MD Admitting Physician: Gigi Carter MD Referring Physician: Hazel Kilgore MD Allergies, [...] Refills, Maintenance, 04/16/20 13:33:00 EDT, ER Tablet, [facility], 155.4, cm, 01/03/20 11:16:00 EST, Height, 100, kg, 01/03/20 11:16:00 EST, Dry Weight Start Date: 04/16/20 Status: Ordered mirabegron 50 mg oral tablet, extended release 1 tablet = 50 mg, By Mouth, Daily, do not crush or chew, # 30 tablet, 5 Refills, Maintenance, 06/27/20 14:13:00 EDT, ER Tablet, [facility], 155.4, cm, 04/30/20 11:09:00 EDT, Height, [...] 15:04:06 Start Date: 12/29/16 Status: Ordered Pen [place], 31 G x 5 mm BD Ultra [...]
--- OUTSIDE RECORDS SUMMARY | 2024-02-15 13:11 | XMS_ITS | Continuity of Care Document ---
Author Organization [facility] Address [address] [place] [address]- Care Team Providers Care Heavy Repairer Name Role Phone Hazel Kilgore MD Primary Care Physician Encounter [facility] Date(s): 03/03/23 - 04/02/23 [facility] [address] [place] [id number] Allergies, Adverse Reactions, Alerts No Known [...] 11 Refills, Maintenance, 03/03/23 10:18:00 EDT, Tablet, [facility], Partial fill upon patient request [...] Refills, Maintenance, 04/16/20 13:33:00 EDT, ER Tablet, [facility], 155.4, cm, 01/03/20 11:16:00 EST, Height, 100, kg, 01/03/20 11:16:00 EST, Dry Weight Start Date: 04/16/20 Status: Ordered mirabegron 50 mg oral tablet, extended release 1 tablet = 50 mg, By Mouth, Daily, do not crush or chew, # 30 tablet, 11 Refills, Maintenance, 08/11/22 12:51:00 EDT, ER Tablet, [facility], 153.7, cm, 07/11/22 10:57:00 EDT, Height, 91.8, kg, 04/28/22 10:58:00 EDT, Dry Weight Start Date: 08/11/22 Status: Ordered NovoLOG FlexPen 100 units/mL subcutaneous solution Subcutaneous Injection, 3 times a day before meals, 0 Refills, Maintenance, 07/01/16 9:50:36 Start Date: 07/01/16 Status: Ordered nystatin topical [id number] u/gm powder See Instructions, APPLY TO THE AFFECTED AREA(S) TOPICALLY TWICE DAILY, # 60 Gm, 2 Refills, [facility], 30, APPLY TO THE AFFECTED AREA(S) TOPICALLY TWICE DAILY, 157.5, cm, 10/28/2111:02:00 EST, Height, 45.8, kg, 05/01/21 11:09:00 E... Start Date: 11/25/21 Status: Ordered omeprazole 20 mg oral delayed release tablet 1 tablet = 20 mg, By Mouth, Daily, 0 Refills, Maintenance, 12/29/16 15:04:06 Start Date: 12/29/16 Status: Ordered Pen [place], 31 G x 5 mm BD Ultra [...] 3 Refills, Maintenance, 06/18/22 11:02:00 EDT, Solution, [facility], Partial fill upon patient request [...] Team Personnel Name: Lashay Anderson RN Position: [facility] RN Member Role: Primary Care Nurse Name: Hazel Kilgore MD Position: [facility] Outreach Member Role: PCP Address: Address: [address] [place] [address] [place] [address] Name: Sally Ochoa RN Position: [facility] RN Supv Member Role: Primary Care Nurse Name: Hazel James RN Position: [facility] RN Member Role: Primary Care Nurse Name: Anastasia Wright RN Position: [facility] RN Member Role: Primary Care Nurse Name: Monique Kohli RN Position: [facility] Hospital Official Greeter Member Role: Primary Care Nurse Name: Maxine Stewart RN Position: [facility] RN Member Role: Primary Care Nurse Name: Delma Harrell RN Position: [facility] Onco RN Member Role: Primary Care Nurse Care Team Related Persons Name: MITRA WAYNE Address: [address] [place] [address] Name: JOYCE ALCALA Address: home [address] [place] [address]
--- OUTSIDE RECORDS SUMMARY | 2024-02-15 13:11 | XMS_ITS | Continuity of Care Document ---
Author Organization [facility] Address [address] [place] [address]- Care Team Providers Care Label Press Operator Name Role Phone Hazel Kilgore MD Primary Care Physician [place] [facility] [place]02[place] - 06/20/[address] [address]- [facility] Attending Physician: Carol TORREZ, Steffanie Butcher Admitting Physician: Carol TORREZ, Steffanie Butcher Referring Physician: Carol TORREZ, Steffanie Butcher Allergies, Adverse Reactions, Alerts Substance Reaction Severity [...] Refills, Maintenance, 04/16/20 13:33:00 EDT, ER Tablet, [facility], 155.4, cm, 01/03/20 11:16:00 EST, Height, 100, kg, 01/03/20 11:16:00 EST, Dry Weight Start Date: 04/16/20 Status: Ordered NovoLOG FlexPen 100 units/mL subcutaneous solution Subcutaneous Injection, 3 times a day before meals, 0 Refills, Maintenance, 07/01/16 9:50:36 Start Date: 07/01/16 Status: Ordered omeprazole 20 mg oral delayed release tablet 1 tablet = 20 mg, By Mouth, Daily, 0 Refills, Maintenance, 12/29/16 15:04:06 Start Date: 12/29/16 Status: Ordered Pen [place], 31 G x 5 mm BD Ultra [...]
--- OUTSIDE RECORDS SUMMARY | 2024-02-15 13:11 | XMS_ITS | Continuity of Care Document ---
Author Organization [facility] Address [address] [place] [address]- Care Team Providers Care Theatre Professor Name Role Phone Hazel Kilgore MD Primary Care Physician Encounter [facility] Date(s): 11/20/20 - 01/20/[address] [address] Discharge Disposition: A-D/C Home Attending Physician: Hazel Kilgore MD Admitting Physician: Hazel Kilgore MD Referring Physician: Hazel Kilgore MD Allergies, [...] Refills, Maintenance, 04/16/20 13:33:00 EDT, ER Tablet, [facility], 155.4, cm, 01/03/20 11:16:00 EST, Height, 100, kg, 01/03/20 11:16:00 EST, Dry Weight Start Date: 04/16/20 Status: Ordered mirabegron 50 mg oral tablet, extended release 1 tablet = 50 mg, By Mouth, Daily, do not crush or chew, # 30 tablet, 5 Refills, Maintenance, 01/11/21 13:42:00 EST, ER Tablet, [facility], 155.4, cm, 07/10/20 10:58:00 EDT, Height, 103.1, kg, 04/30/20 11:09:00 EDT, Dry Weight Start Date: 01/11/21 Status: Ordered NovoLOG FlexPen 100 units/mL subcutaneous solution Subcutaneous Injection, 3 times a day before meals, 0 Refills, Maintenance, 07/01/16 9:50:36 Start Date: 07/01/16 Status: Ordered omeprazole 20 mg oral delayed release tablet 1 tablet = 20 mg, By Mouth, Daily, 0 Refills, Maintenance, 12/29/16 15:04:06 Start Date: 12/29/16 Status: Ordered Pen [place], 31 G x 5 mm BD Ultra [...]
--- OUTSIDE RECORDS SUMMARY | 2024-02-15 13:11 | XMS_ITS | Continuity of Care Document ---
Author Organization [facility] Address [address] [place] [address]- Care Team Providers Care Hand Baseball Sewer Name Role Phone Hazel Kilgore MD Primary Care Physician Encounter [facility] Date(s): 07/03/21 - 08/02/21 [facility] [address] [place] [id number] Allergies, Adverse Reactions, Alerts Substance Reaction Severity [...] Refills, Maintenance, 04/16/20 13:33:00 EDT, ER Tablet, [facility], 155.4, cm, 01/03/20 11:16:00 EST, Height, 100, kg, 01/03/20 11:16:00 EST, Dry Weight Start Date: 04/16/20 Status: Ordered mirabegron 50 mg oral tablet, extended release 1 tablet = 50 mg, By Mouth, Daily, do not crush or chew, # 30 tablet, 5 Refills, Maintenance, 07/05/21 12:50:00 EDT, ER Tablet, [facility], 157.5, cm, 06/14/21 11:18:00 EDT, Height, 45.8, kg, 05/01/21 11:09:00 EDT, Dry Weight Start Date: 07/05/21 Status: Ordered NovoLOG FlexPen 100 units/mL subcutaneous solution Subcutaneous Injection, 3 times a day before meals, 0 Refills, Maintenance, 07/01/16 9:50:36 Start Date: 07/01/16 Status: Ordered nystatin topical 284955 u/gm powder 1 application, Topically, 2 times a day, # 60 Gm, 2 Refills, Maintenance, 05/01/21 15:29:00 EDT, Powder, [facility], Partial fill upon patient request if the prescription is for aschedule II opioid drug., 1 application Topically 2... Start Date: 05/01/21 Status: Ordered omeprazole 20 mg oral delayed release tablet 1 tablet = 20 mg, By Mouth, Daily, 0 Refills, Maintenance, 12/29/16 15:04:06 Start Date: 12/29/16 Status: Ordered Pen [place], 31 G x 5 mm BD Ultra [...] 3 Refills, Maintenance, 06/14/21 14:51:00 EDT, Solution, [facility], Partial fill upon [...]
--- OUTSIDE RECORDS SUMMARY | 2024-02-15 13:11 | XMS_ITS | Continuity of Care Document ---
Author Organization [facility] Address [address] [place] [address]- Care Team Providers Care Instrumentation Controls Engineer Name Role Phone Hazel Kilgore MD Primary Care Physician Encounter [facility] Date(s): 09/20/21 - 10/20/21 [facility] [address] [place] [id number] Attending Physician: Jeremy Gaston Admitting Physician: AdmtrJeremy [...] Refills, Maintenance, 04/16/20 13:33:00 EDT, ER Tablet, [facility], 155.4, cm, 01/03/20 11:16:00 EST, Height, 100, kg, 01/03/20 11:16:00 EST, Dry Weight Start Date: 04/16/20 Status: Ordered mirabegron 50 mg oral tablet, extended release 1 tablet = 50 mg, By Mouth, Daily, do not crush or chew, # 30 tablet, 5 Refills, Maintenance, 07/05/21 12:50:00 EDT, ER Tablet, [facility], 157.5, cm, 06/14/21 11:18:00 EDT, Height, 45.8, kg, 05/01/21 11:09:00 EDT, Dry Weight Start Date: 07/05/21 Status: Ordered NovoLOG FlexPen 100 units/mL subcutaneous solution Subcutaneous Injection, 3 times a day before meals, 0 Refills, Maintenance, 07/01/16 9:50:36 Start Date: 07/01/16 Status: Ordered nystatin topical [id number] u/gm powder 1 application, Topically, 2 times a day, # 60 Gm, 2 Refills, Maintenance, 05/01/21 15:29:00 EDT, Powder, [facility], Partial fill upon patient request if the prescription is for aschedule II opioid drug., 1 application Topically 2... Start Date: 05/01/21 Status: Ordered omeprazole 20 mg oral delayed release tablet 1 tablet = 20 mg, By Mouth, Daily, 0 Refills, Maintenance, 12/29/16 15:04:06 Start Date: 12/29/16 Status: Ordered Pen [place], 31 G x 5 mm BD Ultra [...] 3 Refills, Maintenance, 08/07/21 12:51:00 EDT, Solution, [facility], Partial fill upon patient request if [...]
--- OUTSIDE RECORDS SUMMARY | 2024-02-15 13:11 | XMS_ITS | Continuity of Care Document ---
Author Organization [facility] Address [address] [place] [address]- Care Team Providers Care Hotel Valet Attendant Name Role Phone Hazel Kilgore MD Primary Care Physician En[place] [facility] [place] Date(s): 05/26/23 - 06/25/23 [facility] [address] [place] [id number] Allergies, Adverse Reactions, Alerts No [...] 11 Refills, Maintenance, 03/03/23 10:18:00 EDT, Tablet, [facility], Partial fill upon patient [...] Refills, Maintenance, 04/16/20 13:33:00 EDT, ER Tablet, [facility], 155.4, cm, 01/03/20 11:16:00 EST, Height, 100, kg, 01/03/20 11:16:00 EST, Dry Weight Start Date: 04/16/20 Status: Ordered mirabegron 50 mg oral tablet, extended release 1 tablet = 50 mg, By Mouth, Daily, do not crush or chew, # 30 tablet, 11 Refills, Maintenance, 08/11/22 12:51:00 EDT, ER Tablet, [facility], 153.7, cm, 07/11/22 10:57:00 EDT, Height, 91.8, kg, 04/28/22 10:58:00 EDT, Dry Weight Start Date: 08/11/22 Status: Ordered NovoLOG FlexPen 100 units/mL subcutaneous solution Subcutaneous Injection, 3 times a day before meals, 0 Refills, Maintenance, 07/01/16 9:50:36 Start Date: 07/01/16 Status: Ordered nystatin topical [id number] u/gm powder See Instructions, APPLY TO THE AFFECTED AREA(S) TOPICALLY TWICE DAILY, # 60 Gm, 2 Refills, [facility], 30, APPLY TO THE AFFECTED AREA(S) TOPICALLY TWICE DAILY, 157.5, cm, 10/28/2111:02:00 EST, Height, 45.8, kg, 05/01/21 11:09:00 E... Start Date: 11/25/21 Status: Ordered omeprazole 20 mg oral delayed release tablet 1 tablet = 20 mg, By Mouth, Daily, 0 Refills, Maintenance, 12/29/16 15:04:06 Start Date: 12/29/16 Status: Ordered Pen [place], 31 G x 5 mm BD Ultra [...] 3 Refills, Maintenance, 05/26/23 11:55:00 EDT, Solution, [facility], Partial fill upon patient [...] Outreach Member Role: PCP Address: Address: [address] [place] [address] [place] [address] Name: Sally Ochoa RN Position: [facility] RN Supv Member Role: Primary Care Nurse Name: Hazel James RN Position: [facility] RN Member Role: Primary Care Nurse Name: Anastasia Wright RN Position: [facility] RN Member Role: Primary Care Nurse Name: Monique Kohli RN Position: [facility] Hospital Pyrometer Mechanic Member Role: Primary Care Nurse Name: Maxine Stewart RN Position: [facility] RN Member Role: Primary Care Nurse Name: Delma Harrell RN Position: [facility] Onco RN Member Role: Primary Care Nurse Care Team Related Persons Name: WAYNEMITRA TREVIÑO Address: home [address] [place] [address] Name: JOYCE ALCALA Address: home [address] [place] [address]
--- OUTSIDE RECORDS SUMMARY | 2024-02-15 13:11 | XMS_ITS | Continuity of Care Document ---
Author Organization [facility] Address [address] [place] [address]- Care Team Providers Care Title Inspector Name Role Phone Marana Hazel FELIPE Primary Care Physician En[place] [facility] [place] Date(s): 11/18/19 - 11/28/[address] [address]- [facility] Attending Physician: Jeremy Gaston Admitting Physician: [...] 15:04:06 Start Date: 12/29/16 Status: Ordered Pen [place], 31 G x 5 mm BD Ultra [...]
--- OUTSIDE RECORDS SUMMARY | 2024-02-15 13:11 | XMS_ITS | Continuity of Care Document ---
Author Organization [facility] Address [address] [place] [address], [address] [place] [address]- Care Team Providers Care Encephalographer Name Role Phone Hazel Kilgore MD Primary Care Physician [place] [facility] Date(s): 07/08/21 - 08/07/21 [facility] [address] [facility], 4th [address] [place], [place] [address] Allergies, Adverse Reactions, Alerts Substance Reaction Severity [...] Refills, Maintenance, 04/16/20 13:33:00 EDT, ER Tablet, [facility], 155.4, cm, 01/03/20 11:16:00 EST, Height, 100, kg, 01/03/20 11:16:00 EST, Dry Weight Start Date: 04/16/20 Status: Ordered mirabegron 50 mg oral tablet, extended release 1 tablet = 50 mg, By Mouth, Daily, do not crush or chew, # 30 tablet, 5 Refills, Maintenance, 07/05/21 12:50:00 EDT, ER Tablet, [facility], 157.5, cm, 06/14/21 11:18:00 EDT, Height, 45.8, kg, 05/01/21 11:09:00 EDT, Dry Weight Start Date: 07/05/21 Status: Ordered NovoLOG FlexPen 100 units/mL subcutaneous solution Subcutaneous Injection, 3 times a day before meals, 0 Refills, Maintenance, 07/01/16 9:50:36 Start Date: 07/01/16 Status: Ordered nystatin topical [id number] u/gm powder 1 application, Topically, 2 times a day, # 60 Gm, 2 Refills, Maintenance, 05/01/21 15:29:00 EDT, Powder, [facility], Partial fill upon patient request if the prescription is for aschedule II opioid drug., 1 application Topically 2... Start Date: 05/01/21 Status: Ordered omeprazole 20 mg oral delayed release tablet 1 tablet = 20 mg, By Mouth, Daily, 0 Refills, Maintenance, 12/29/16 15:04:06 Start Date: 12/29/16 Status: Ordered Pen [place], 31 G x 5 mm BD Ultra [...] 3 Refills, Maintenance, 08/07/21 12:51:00 EDT, Solution, [facility], Partial fill upon patient request [...]
--- OUTSIDE RECORDS SUMMARY | 2024-02-15 13:11 | XMS_ITS | Continuity of Care Document ---
Author Organization [facility] Address [address] [place] [address]- Care Team Providers Care Associate Professor Of Criminal Justice Name Role Phone Hazel Kilgore MD Primary Care Physician Encounter [facility] Date(s): 11/06/21 - 12/06/21 [facility] [address] [place], [place] [address] Attending Physician: Jeremy Gatson Admitting Physician: AdmJeremy pak Referring Physician: AdmtrJeremy [...] Maintenance, 04/16/20 13:33:00 EDT, ER Tablet, [facility], 155.4, cm, 01/03/20 11:16:00 EST, Height, 100, kg, 01/03/20 11:16:00 EST, Dry Weight Start Date: 04/16/20 Status: Ordered mirabegron 50 mg oral tablet, extended release 1 tablet = 50 mg, By Mouth, Daily, do not crush or chew, # 30 tablet, 5 Refills, Maintenance, 07/05/21 12:50:00 EDT, ER Tablet, [facility], 157.5, cm, 06/14/21 11:18:00 EDT, Height, 45.8, kg, 05/01/21 11:09:00 EDT, Dry Weight Start Date: 07/05/21 Status: Ordered NovoLOG FlexPen 100 units/mL subcutaneous solution Subcutaneous Injection, 3 times a day before meals, 0 Refills, Maintenance, 07/01/16 9:50:36 Start Date: 07/01/16 Status: Ordered nystatin topical 115785 u/gm powder See Instructions, APPLY TO THE AFFECTED AREA(S) TOPICALLY TWICE DAILY, # 60 Gm, 2 Refills, [facility], 30, APPLY TO THE AFFECTED AREA(S) TOPICALLY TWICE DAILY, 157.5, cm, 10/28/2111:02:00 EST, Height, 45.8, kg, 05/01/21 11:09:00 E... Start Date: 11/25/21 Status: Ordered omeprazole 20 mg oral delayed release tablet 1 tablet = 20 mg, By Mouth, Daily, 0 Refills, Maintenance, 12/29/16 15:04:06 Start Date: 12/29/16 Status: Ordered Pen [place], 31 G x 5 mm BD Ultra [...] 3 Refills, Maintenance, 08/07/21 12:51:00 EDT, Solution, [facility], Partial fill upon patient request [...]
--- OUTSIDE RECORDS SUMMARY | 2024-02-15 13:11 | XMS_ITS | Continuity of Care Document ---
Author Organization [facility] Address [address] [place] [address]- Care Team Providers Care Bilingual Hr Generalist Name Role Phone Hazel Kilgore MD Primary Care Physician [place] [id number] Date(s): 10/08/23 - 10/15/23 [facility] [address] [place] [address]- Attending Physician: Jonh TORREZ, Nia Allergies, Adverse Reactions, Alerts No Known Allergies Medications amLODIPine 5 mg oral tablet 5 mg, 1, tablet, By Mouth, Daily, Refills 0, Maintenance, 03/12/17 11:32:25 Start Date: 03/12/17 Status: Ordered apixaban 5 mg oral tablet = 5 mg, By Mouth, 2 times a day, # 60 tablet, 0 Refills, Maintenance, 07/23/23 11:25:00 EDT, Tablet, [facility], Partial fill upon patient request [...] 11 Refills, Maintenance, 03/03/23 10:18:00 EDT, Tablet, [facility], Partial fill upon patient request [...] Maintenance, 07/23/23 11:24:00 EDT,Route to Pharmacy Electronically, [facility], Partial fill upon patient requestif the prescription is for a schedule II opioid roshan... Start Date: 07/23/23 Status: Ordered mirabegron 50 mg oral tablet, extended release 1 tablet = 50 mg, By Mouth, Daily, do not crush or chew, # 30 tablet, 11 Refills, Maintenance, 08/11/22 12:51:00 EDT, ER Tablet, [facility], 153.7, cm, 07/11/22 10:57:00 EDT, [...] mL, 3 Refills, Maintenance, 10/08/23 10:28:00 EST, [facility], Partial fill upon patient request [...] oldest [Reference Range]: 1 Height 159 cm (10/08/23 2:38 PM) Weight 86.3 kg (10/08/23 2:38 PM) Oxygen Saturation [94-100 %] 96 % (10/08/23 2:38 PM) Pulse Rate [55-90 bpm] 67 bpm (10/08/23 2:38 PM) Body Mass Index [18.5-24.99 kg/m2] 34.14 kg/m2 *>HHI* (10/08/23 2:38 PM) Blood Pressure [90-138/55-84 mm Hg] 121/ 45mm Hg (10/08/23 2:38 PM) Blood pressure sites Arm, right (10/08/23 2:38 PM) Social History Social History Type Response Smoking [...] Safety Implantable Status Assigning Authority Unknown Unknown [id number] Unknown 04/08/26 Unknown Unknown Active Unk nown Cardiology Outpatient Note * Nia Borja NP: PERFORM, MODIFY Event Display: Cardiology Note Office Authored Date: [id number] Patient: ??INNA MACIAS ? Age:??78 Years?Sex:??Female?:??1945?? Indication for Consult IPF. History of Present Illness/Interval History Platina is a??78-year-old woman with PMH significant for CKD 3??AA, COPD, dyslipidemia, GERD, DM 2,??endometrial??CA s/p NICOLAS??who was recently admitted??2 months ago for??periurethral bulking procedure??for stress induced incontinence??and was noted to be??hypotensive with a new A-fib RVR??postopera tively. ??She presents today for inpatient follow-up.?? In the interim, she has had??Holter monitoring complete with no??recurrence of atrial fibrillation.?? Patient endorses doing well. ??She has nocardiac complaints or concerns. ??She denies CP, SOB, dizziness, palpitations, peripheral edema.?? She is asking if she has to continue to take the metoprolol and apixaban. Review of Systems pertinent positives per HPI Physical Exam Vitals & Measurements HR:??67??(Peripheral)?? BP:??121/45?? SpO2:??96%?? HT:??159??cm?? WT:??86.3??kg?? BMI:??34.14?? Weight lb/oz: 190 lb 4 oz General: Alert, sitting in chair comfortably, in NAD.??Ambulated independently,??steady??gait. Mental: Oriented x3. Appropriate affect. Converses easily HEENT: Normocephalic. Pupils round, equal. Mucous membranes moist. Neck: Full ROM Respiratory:??CTA. Nonlabored. Cardiovascular:??RRR. S1/S2. No M/R/G. No edema. No JVD. Gastrointestinal: Abdomen soft, non-tender, non-distended. Active bowel sounds. Neuro: Grossly intact. Moves all extremities spontaneously. Skin: Twin, warm. CDI. Assessment/Plan Atrial fibrillation in the setting of??Postoperative stress without recurrence. Patient presents today for inpatient follow-up.?? She has has been doing well.?? She has no cardiaccomplaints or concerns.?? Follow-up note monitor revealed atrial fibrillation.?? In regards to this, Dr. Ashley??sent??a message to PCP noting patient would be reasonable to stop apixaban at this time and continue to monitor.?? If she did have recurrence, it??would be advisable to continue at soo t time. ?? Plan continue to monitor continue metoprolol ok to??stop apixaban at this time pt advised if she did have another occurrence she would need to continue med follow up in 6 months Allergies NKA Home Medications amLODIPine 5 mg oral tablet, 5 mg= 1 tablet, By Mouth, Daily apixaban 5 mg oral tablet, 5 mg, By Mouth, 2 times a day aspirin 81 mg oral tablet, 81 mg= 1 tablet, By Mouth, Daily Calcium 600 +D, By Mouth Crestor 20 mg oral tablet, 20 mg= 1 tablet, By Mouth, Daily at bedtime doxazosin 4 mg oral tablet, 4 mg= 1 tablet, By Mouth, Daily Farxiga 10 mg oral tablet, 10 mg= 1 tablet, By Mouth, Daily, 11 refills ferrous sulfate 325 mg oral tablet, 325 mg= 1 tablet, By Mouth, 3 times a day furosemide 40 mg oral tablet, 40 mg= 1 tablet, By Mouth, Daily gabapentin 600 mg oral tablet, 600 mg= 1 tablet, By Mouth, 3 times a day Imdur 30 mg oral tablet, extended release, 1 tablet, By Mouth, Daily in AM Lantus Solostar Pen 100 units/mL subcutaneous solution, 30 units, Subcutaneous Injection, Daily at bedtime lisinopril 30 mg oral tablet, 30 mg= 1 tablet, By Mouth, Daily magnesium oxide 400 mg oral tablet, 400 mg= 1 tablet, By Mouth, Daily metoprolol 25 mg oral tablet, extended release, 25 mg, By Mouth, Daily mirabegron 50 mg oral tablet, extended release, 50 mg= 1 tablet, By Mouth, Daily, 11 refills NovoLOG FlexPen 100 units/mL subcutaneous solution, Subcutaneous Injection, 3 times a day before meals omeprazole 20 mg oral delayed release tablet, 20 mg= 1 tablet, By Mouth, Daily traMADol 50 mg oral tablet, 50 mg= 1 tablet, By Mouth, Daily, PRN Trulicity Pen 3 mg/0.5 mL subcutaneous solution, 3 mg, Subcutaneous Infusion, Every week, 3 refills Vitamin C, By Mouth, Daily Lab Results Cardiology Labs WBC: 7.1 k/mm3 (07/23/23) RBC: 4.67 m/mm3 (07/23/23) Hgb:??10.9 Gm/dL??Low (07/23/23) Hct: 37.7 % (07/23/23) MCV: 80.7 femtoliters (07/23/23) MCH:??23.3 pg??Low (07/23/23) MCHC:??28.9 g/dL??Low (07/23/23) Platelet Count:??141 k/mm3??Low (07/23/23) RDW-SD: 43.8 femtoliters (07/23/23) Nucleated RBC (Automated): 0 #/100 WBC'S (07/23/23) Sodium: 142 mmol/L (07/23/23) Potassium: 4.5 mmol/L (07/23/23) Chloride: 104 mmol/L (07/23/23) Bicarbonate Level: 29 mmol/L (07/23/23) Glucose Level: 85 mg/dL (07/23/23) BUN: 18 mg/dL (07/23/23) Creatinine-Blood: 1 mg/dL (07/23/23) Calcium: 9.2 mg/dL (07/23/23) TSH: 3.15 uIU/mL (07/23/23) Free T4: 0.79 ng/dL (07/23/23) Diagnostic Impression ECG ECG 12-Lead ?? 07:31:22 Ventricular Rate: 104 BPM Atrial Rate: 122 BPM QRS Duration: 78 ms Q-T Interval: 290 ms QTC Calculation(Bazett): 381 ms R [place]: -8 degrees T [place]: 227 degrees Atrial fibrillation with rapid ventricular response Nonspecific ST and T wave abnormality Abnormal ECG When compared with ECG of 07-JAN-2017 10:05, Atrial fibrillation has replaced Sinus rhythm Confirmed by MEDARDO PALOMARES ([id number]) on 07/27/2023 4:43:45 PM ?? [place]: MEDARDO PALOMARES ?? Signed By: Medardo Palomares MD ?? ECG 12-Lead ?? 07:31:22 Please click on pdf link to open report ?? Signed By: Medardo Palomares MD Echo Echocardiogram - Complete ?? 08:39:32 Summary The left ventricle is normal in size. Ejection fraction is 55-60%. The basal inferior wall is akinetic. Grade II diastolic dysfunction. ?? The left atrium is mildly dilated. ?? The right ventricle is normal in size. Function is preserved. ?? The right atrium is normal in size. ?? Comparison No prior study available for comparison. ?? Signature ?? Signed By: Di FELIPE, Evita Ellsworth Problem List/Past Medical History Ongoing Abnormal laboratory test Atrial fibrillation with RVR [...] History Mother: Diabetes mellitus type II; Hypertension Patient Care team information Care Team Personnel Name: Lashay Anderson RN Position: [facility] RN Member Role: Primary Care Nurse Name: Hazel Kilgore MD Position: [facility] Outreach Member Role: PCP Address: Address: [address] [place] [address] [address] [place], [place] [address] Name: Hazel James RN Position: [facility] RN Member Role: Primary Care Nurse Name: Anastasia Wright RN Position: [facility] RN Member Role: Primary Care Nurse Name: Monique Kohli RN Position: [facility] Hospital Licensing Court Magistrate Member Role: Primary Care Nurse Name: Maxine Stewart RN Position: [facility] RN Member Role: Primary Care Nurse Name: Sharri TOMPKINS, Delma Toussaint Position: [facility] RN Member Role: Primary Care Nurse Care Team Related Persons Name: MITRA WAYNE Address: [address] [address] Name: JOYCE ALCALA Address: [place] [address]
--- OUTSIDE RECORDS SUMMARY | 2024-02-15 13:11 | XMS_ITS | Continuity of Care Document ---
Author Organization [facility]ALITY ASSUR[facility] MONITOR FINAL Oncolog y Address [address] [place] [address]- Care Team Providers Care Painter Supervisor Name Role Phone Hazel Kilgore MD Primary Care Physician [place] [facility]): [place]23 - 05/13/23 [facility] [address] [place] [id number] Attending Physician: Gigi Carter MD Admitting Physician: [...] 11 Refills, Maintenance, 03/03/23 10:18:00 EDT, Tablet, [facility], Partial fill upon patient request [...] Refills, Maintenance, 04/16/20 13:33:00 EDT, ER Tablet, [facility], 155.4, cm, 01/03/20 11:16:00 EST, Height, 100, kg, 01/03/20 11:16:00 EST, Dry Weight Start Date: 04/16/20 Status: Ordered mirabegron 50 mg oral tablet, extended release 1 tablet = 50 mg, By Mouth, Daily, do not crush or chew, # 30 tablet, 11 Refills, Maintenance, 08/11/22 12:51:00 EDT, ER Tablet, [facility], 153.7, cm, 07/11/22 10:57:00 EDT, Height, 91.8, kg, 04/28/22 10:58:00 EDT, Dry Weight Start Date: 08/11/22 Status: Ordered NovoLOG FlexPen 100 units/mL subcutaneous solution Subcutaneous Injection, 3 times a day before meals, 0 Refills, Maintenance, 07/01/16 9:50:36 Start Date: 07/01/16 Status: Ordered nystatin topical [id number] u/gm powder See Instructions, APPLY TO THE AFFECTED AREA(S) TOPICALLY TWICE DAILY, # 60 Gm, 2 Refills, [facility], 30, APPLY TO THE AFFECTED AREA(S) TOPICALLY TWICE DAILY, 157.5, cm, 10/28/2111:02:00 EST, Height, 45.8, kg, 05/01/21 11:09:00 E... Start Date: 11/25/21 Status: Ordered omeprazole 20 mg oral delayed release tablet 1 tablet = 20 mg, By Mouth, Daily, 0 Refills, Maintenance, 12/29/16 15:04:06 Start Date: 12/29/16 Status: Ordered Pen [place], 31 G x 5 mm BD Ultra [...] 3 Refills, Maintenance, 06/18/22 11:02:00 EDT, Ramon, [facility], Partial fill upon patient request [...] Team Personnel Name: Lashay Anderson RN Position: [facility] RN Member Role: Primary Care Nurse Name: Hazel Kilgore MD Position: [facility] Outreach Member Role: PCP Address: Address: [address] [place] [address] [address] [place], [place] [address] Name: Sally Ochoa RN Position: [facility] RN Supv Member Role: Primary Care Nurse Name: Hazel James RN Position: [facility] RN Member Role: Primary Care Nurse Name: Anastasia Wright RN Position: [facility] RN Member Role: Primary Care Nurse Name: Monique Kohli RN Position: [facility] Hospital Arts Administrator Member Role: Primary Care Nurse Name: Maxine Stewart RN Position: [facility] RN Member Role: Primary Care Nurse Name: Delma Harrell RN Position: [facility] Onco RN Member Role: Primary Care Nurse Care Team Related Persons Name: MITRA WAYNE Address: [address] [address] Name: JOYCE ALCALA Address: [address] [address]
--- OUTSIDE RECORDS SUMMARY | 2024-02-15 13:11 | XMS_ITS | Continuity of Care Document ---
Author Organization [facility] Address [address] [place] [address] [address] [place] [address]- Care Team Providers Care First Crusher Name Role Phone Magui , Hazel Soriano Primary Care Physician [place] [facility] [place] 07/10/20 - 07/17/[address] [place] [address]- [facility] Attending Physician: Mario FELIPE, Jina Soriano Referring Physician: Carol TORREZ, Steffanie Butcher Allergies, [...] Maintenance, 04/16/20 13:33:00 EDT, ER Tablet, [facility], 155.4, cm, 01/03/20 11:16:00 EST, Height, 100, kg, 01/03/20 11:16:00 EST, Dry Weight Start Date: 04/16/20 Status: Ordered mirabegron 50 mg oral tablet, extended release 1 tablet = 50 mg, By Mouth, Daily, do not crush or chew, # 30 tablet, 5 Refills, Maintenance, 06/27/20 14:13:00 EDT, ER Tablet, [facility], 155.4, cm, 04/30/20 11:09:00 EDT, Height, [...] 15:04:06 Start Date: 12/29/16 Status: Ordered Pen [place], 31 G x 5 mm BD Ultra [...] diabetes mellitus(Confirmed) Active 1T Spot Positive 10/20/2016 Vital Signs Most recent to oldest [Reference Range]: 1 Height 155.4 cm (07/10/20 10:58 AM) Weight 102.3 kg (07/10/20 10:58 AM) Pulse Rate [55-90 bpm] 80 bpm (07/10/20 10:58 AM) Body Mass Index [18.5-24.99] 42.36 *>HHI* (07/10/20 10:58 AM) Blood Pressure [90-138/55-84 mm Hg] 127/ 69mm Hg (07/10/20 10:58 AM) Temperature [96.8-100.4 DegF] 97.3 DegF (07/10/20 10:58 AM) Blood pressure sites Arm, left (07/10/20 10:58 AM) Temperature Route Temporal (07/10/20 10:58 AM) Social History Social History Type Response Smoking Status Former smoker; Tobac co user in household: No; Type: Cigarettes; Other: Quit 24 years ago; entered on: 12/29/16 Sex
--- OUTSIDE RECORDS SUMMARY | 2024-02-15 13:11 | XMS_ITS | Continuity of Care Document ---
Author Organization [facility] Address [address] [place] [address]- Care Team Providers Care Director Trading Name Role Phone Hazel Kilgore MD Primary Care Physician Encounter [facility] Date(s): 09/30/21 - 10/30/21 [facility] [address] [place] [id number] Allergies, Adverse Reactions, Alerts Substance Reaction Severity [...] Maintenance, 04/16/20 13:33:00 EDT, ER Tablet, [facility], 155.4, cm, 01/03/20 11:16:00 EST, Height, 100, kg, 01/03/20 11:16:00 EST, Dry Weight Start Date: 04/16/20 Status: Ordered mirabegron 50 mg oral tablet, extended release 1 tablet = 50 mg, By Mouth, Daily, do not crush or chew, # 30 tablet, 5 Refills, Maintenance, 07/05/21 12:50:00 EDT, ER Tablet, [facility], 157.5, cm, 06/14/21 11:18:00 EDT, Height, 45.8, kg, 05/01/21 11:09:00 EDT, Dry Weight Start Date: 07/05/21 Status: Ordered NovoLOG FlexPen 100 units/mL subcutaneous solution Subcutaneous Injection, 3 times a day before meals, 0 Refills, Maintenance, 07/01/16 9:50:36 Start Date: 07/01/16 Status: Ordered nystatin topical [id number] u/gm powder 1 application, Topically, 2 times a day, # 60 Gm, 2 Refills, Maintenance, 05/01/21 15:29:00 EDT, Powder, [facility], Partial fill upon patient request if the prescription is for aschedule II opioid drug., 1 application Topically 2... Start Date: 05/01/21 Status: Ordered omeprazole 20 mg oral delayed release tablet 1 tablet = 20 mg, By Mouth, Daily, 0 Refills, Maintenance, 12/29/16 15:04:06 Start Date: 12/29/16 Status: Ordered Pen [place], 31 G x 5 mm BD Ultra [...] 3 Refills, Maintenance, 08/07/21 12:51:00 EDT, Solution, [facility], Partial fill upon patient [...]
--- OUTSIDE RECORDS SUMMARY | 2024-02-15 13:11 | XMS_ITS | Continuity of Care Document ---
Author Organization [facility] Phill allisonValocor Therapeuticss [facility] Address [address] [place] [address], [address] [place] [address]- Care Team Providers Care Fish And Wildlife Technician Name Role Phone Hazel Kilgore MD Primary Care Physician [place] [facility] [place]): 01/09/21 - 02/08/21 [facility] Phillgwyn RobersonValocor Therapeuticss [facility] [address] [facility], [address] Floor [place], [place] [address] Allergies, Adverse Reactions, Alerts Substance Reaction [...] Refills, Maintenance, 01/11/21 13:42:00 EST, ER Tablet, [facility], 155.4, cm, 07/10/20 10:58:00 EDT, [...] 15:04:06 Start Date: 12/29/16 Status: Ordered Pen [place], 31 G x 5 mm BD Ultra [...]
--- OUTSIDE RECORDS SUMMARY | 2024-02-15 13:11 | XMS_ITS | Continuity of Care Document ---
Author Organization [facility] Address [address] [place] [address], [address] [address]- Care Team Providers Care Eyewear Manufacturing Tech Name Role Phone Magui FELIPE, Hazel Soriano Primary Care Physician [place] [facility] [place] 09/03/23 [facility] [address] [facility], [address] [place] [address]- Allergies, Adverse Reactions, Alerts No Known Allergies Medications amLODIPine 5 mg oral tablet 5 mg, 1, tablet, By Mouth, Daily, Refills 0, Maintenance, 03/12/17 11:32:25 Start Date: 03/12/17 Status: Ordered apixaban 5 mg oral tablet = 5 mg, By Mouth, 2 times a day, # 60 tablet, 0 Refills, Maintenance, 07/23/23 11:25:00 EDT, Tablet, [facility], Partial fill upon patient request if [...] 11 Refills, Maintenance, 03/03/23 10:18:00 EDT, Tablet, [facility], Partial fill upon patient request if [...] Maintenance, 07/23/23 11:24:00 EDT,Route to Pharmacy Electronically, [facility], Partial fill upon patient requestif the prescription is for a schedule II opioid roshan... Start Date: 07/23/23 Status: Ordered mirabegron 50 mg oral tablet, extended release 1 tablet = 50 mg, By Mouth, Daily, do not crush or chew, # 30 tablet, 11 Refills, Maintenance, 08/11/22 12:51:00 EDT, ER Tablet, [facility], 153.7, cm, 07/11/22 10:57:00 EDT, Height, [...] mL, 3 Refills, Maintenance, 08/12/23 16:09:00 EDT, [facility], 159, cm, 07/23/23 11:39:00 EDT, Height, [...] Safety Implantable Status Assigning Authority Unknown Unknown [id number] Unknown 04/08/26 Unknown Unknown Active Unk nown Patient Care team information Care Team Personnel Name: Lashay Anderson RN Position: [facility] RN Member Role: Primary Care Nurse Name: Hazel Kilgore MD Position: [facility] Outreach Member Role: PCP Address: Address: [address] [place] [address] [place] [id number] Name: Hazel James RN Position: [facility] RN Member Role: Primary Care Nurse Name: Anastasia Wright RN Position: [facility] RN Member Role: Primary Care Nurse Name: Monique Kohli RN Position: [facility] Hospital Children'[facility] Ministries Director Member Role: Primary Care Nurse Name: Maxine Stewart RN Position: [facility] RN Member Role: Primary Care Nurse Name: Delma Harrell RN Position: [facility] Onco RN Member Role: Primary Care Nurse Care Team Related Persons Name: MITRA WAYNE Address: [address] [address] Name: JOYCE ALCALA Address: [address] [address]
--- OUTSIDE RECORDS SUMMARY | 2024-02-15 13:11 | XMS_ITS | Continuity of Care Document ---
Author Organization [facility] Address [address] [place] [address]- Care Team Providers Care Mold Burner Name Role Phone Hazel Kilgore MD Primary Care Physician [place] [facility] [place] 03/03/23 - 04/02/23 [facility] [address] [place] [id number] Allergies, Adverse Reactions, Alerts No Known [...] 11 Refills, Maintenance, 03/03/23 10:18:00 EDT, Tablet, [facility], Partial fill upon patient request [...] Refills, Maintenance, 04/16/20 13:33:00 EDT, ER Tablet, [facility], 155.4, cm, 01/03/20 11:16:00 EST, Height, 100, kg, 01/03/20 11:16:00 EST, Dry Weight Start Date: 04/16/20 Status: Ordered mirabegron 50 mg oral tablet, extended release 1 tablet = 50 mg, By Mouth, Daily, do not crush or chew, # 30 tablet, 11 Refills, Maintenance, 08/11/22 12:51:00 EDT, ER Tablet, [facility], 153.7, cm, 07/11/22 10:57:00 EDT, Height, 91.8, kg, 04/28/22 10:58:00 EDT, Dry Weight Start Date: 08/11/22 Status: Ordered NovoLOG FlexPen 100 units/mL subcutaneous solution Subcutaneous Injection, 3 times a day before meals, 0 Refills, Maintenance, 07/01/16 9:50:36 Start Date: 07/01/16 Status: Ordered nystatin topical [id number] u/gm powder See Instructions, APPLY TO THE AFFECTED AREA(S) TOPICALLY TWICE DAILY, # 60 Gm, 2 Refills, [facility], 30, APPLY TO THE AFFECTED AREA(S) TOPICALLY TWICE DAILY, 157.5, cm, 10/28/2111:02:00 EST, Height, 45.8, kg, 05/01/21 11:09:00 E... Start Date: 11/25/21 Status: Ordered omeprazole 20 mg oral delayed release tablet 1 tablet = 20 mg, By Mouth, Daily, 0 Refills, Maintenance, 12/29/16 15:04:06 Start Date: 12/29/16 Status: Ordered Pen [place], 31 G x 5 mm BD Ultra [...] 3 Refills, Maintenance, 06/18/22 11:02:00 EDT, Solution, [facility], Partial fill upon patient request [...] Team Personnel Name: Lashay Anderson RN Position: [facility] RN Member Role: Primary Care Nurse Name: Hazel Kilgore MD Position: [facility] Outreach Member Role: PCP Address: Address: [address] [place] [address] [place] [id number] Name: Sally Ochoa RN Position: [facility] RN Supv Member Role: Primary Care Nurse Name: Hazel James RN Position: [facility] RN Member Role: Primary Care Nurse Name: Anastasia Wright RN Position: [facility] RN Member Role: Primary Care Nurse Name: Monique Kohli RN Position: [facility] Hospital Education Consultant Member Role: Primary Care Nurse Name: Maxine Stewart RN Position: [facility] RN Member Role: Primary Care Nurse Name: Delma Harrell RN Position: [facility] Onco RN Member Role: Primary Care Nurse Care Team Related Persons Name: MITRA WAYNE Address: [address] [place] [address] Name: JOYCE ALCALA Address: home [address] [place] [address]
--- OUTSIDE RECORDS SUMMARY | 2024-02-15 13:11 | XMS_ITS | Continuity of Care Document ---
Author Organization [facility] Address [address] [place] [address]- Care Team Providers Care Ship Propeller Finisher Name Role Phone Hazel Kilgore MD Primary Care Physician [place] [facility] [id number] Date(s): 07/23/23 - 10/09/23 [facility] [address] [place] [address]- Attending Physician: Garry Quarles MD Allergies, Adverse Reactions, Alerts No Known Allergies Medications amLODIPine 5 mg oral tablet 5 mg, 1, tablet, By Mouth, Daily, Refills 0, Maintenance, 03/12/17 11:32:25 Start Date: 03/12/17 Status: Ordered apixaban 5 mg oral tablet = 5 mg, By Mouth, 2 times a day, # 60 tablet, 0 Refills, Maintenance, 07/23/23 11:25:00 EDT, Tablet, [facility], [...] Maintenance, 07/23/23 11:24:00 EDT,Route to Pharmacy Electronically, [facility], Partial fill upon patient requestif [...] mL, 3 Refills, Maintenance, 10/08/23 10:28:00 EST, [facility], Partial fill [...] Safety Implantable Status Assigning Authority Unknown Unknown [id number] Unknown 04/08/26 Unknown Unknown Active Unk vandanan Patient Care team information Care Team Personnel Name: Lashay Anderson RN Position: [facility] RN Member Role: Primary Care Nurse Name: Hazel Kilgore MD Position: [facility] Outreach Member Role: PCP Address: Address: [address] [place] [address] [place] [id number] Name: Hazel James RN Position: [facility] RN Member Role: Primary Care Nurse Name: Anastasia Wright RN Position: [facility] RN Member Role: Primary Care Nurse Name: Monique Kohli RN Position: [facility] Hospital Merchandise Planner Member Role: Primary Care Nurse Name: Maxine Stewart RN Position: [facility] RN Member Role: Primary Care Nurse Name: Delma Harrell RN Position: [facility] Onco RN Member Role: Primary Care Nurse Care Team Related Persons Name: MITRA WAYNE Address: home [address] [place] [address] Name: JOYCE ALCALA Address: home [address] [place] [address]
--- OUTSIDE RECORDS SUMMARY | 2024-02-15 13:12 | XMS_ITS | Continuity of Care Document ---
Author Organization [facility] Address [address] [place] [address]- Care Team Providers Care Candles Pourer Name Role Phone Hazel Kilgore MD Primary Care Physician [place] [facility] [place] 06/17/22 - 07/17/22 [facility] [address] [place] [id number] Allergies, Adverse Reactions, Alerts No [...] 11 Refills, Maintenance, 03/25/22 11:33:00 EDT, Tablet, [facility], Partial fill upon patient request if [...] Refills, Maintenance, 04/16/20 13:33:00 EDT, ER Tablet, [facility], 155.4, cm, 01/03/20 11:16:00 EST, Height, 100, kg, 01/03/20 11:16:00 EST, Dry Weight Start Date: 04/16/20 Status: Ordered mirabegron 50 mg oral tablet, extended release 1 tablet = 50 mg, By Mouth, Daily, do not crush or chew, # 30 tablet, 1 Refills, Maintenance, 07/04/22 11:18:00 EDT, ER Tablet, [facility], 153.7, cm, 04/28/22 10:58:00 EDT, Height, 91.8, kg, 04/28/22 10:58:00 EDT, Dry Weight Start Date: 07/04/22 Status: Ordered NovoLOG FlexPen 100 units/mL subcutaneous solution Subcutaneous Injection, 3 times a day before meals, 0 Refills, Maintenance, 07/01/16 9:50:36 Start Date: 07/01/16 Status: Ordered nystatin topical [id number] u/gm powder See Instructions, APPLY TO THE AFFECTED AREA(S) TOPICALLY TWICE DAILY, # 60 Gm, 2 Refills, [facility], 30, APPLY TO THE AFFECTED AREA(S) TOPICALLY TWICE DAILY, 157.5, cm, 10/28/2111:02:00 EST, Height, 45.8, kg, 05/01/21 11:09:00 E... Start Date: 11/25/21 Status: Ordered omeprazole 20 mg oral delayed release tablet 1 tablet = 20 mg, By Mouth, Daily, 0 Refills, Maintenance, 12/29/16 15:04:06 Start Date: 12/29/16 Status: Ordered Pen [place], 31 G x 5 mm BD Ultra [...] 3 Refills, Maintenance, 06/18/22 11:02:00 EDT, Ramon, [facility], Partial fill upon patient request if [...] on: 12/29/16 Sex Care Team Personnel Name: Magui FELIPE , Hazel Soriano Address: [address] [place] [address] [address]
--- OUTSIDE RECORDS SUMMARY | 2024-02-15 13:12 | XMS_ITS | Continuity of Care Document ---
Author Organization [facility] Address [address] [place] [address]- Care Team Providers Care Farm Machinery Set Up Mechanic Name Role Phone Hazel Kilgore MD Primary Care Physician [place] [facility] [place] [id number] Date(s): 09/14/23 - 10/14/23 [facility] [address] [place] [address]- Attending Physician: Jeremy Gaston Admitting Physician: Jeremy [...] 0 Refills, Maintenance, 07/23/23 11:25:00 EDT, Tablet, [facility], Partial fill upon patient request [...] 11 Refills, Maintenance, 03/03/23 10:18:00 EDT, Tablet, [facility], Partial fill upon patient request [...] Maintenance, 07/23/23 11:24:00 EDT,Route to Pharmacy Electronically, [facility], Partial fill upon patient requestif the prescription is for a schedule II opioid roshan... Start Date: 07/23/23 Status: Ordered mirabegron 50 mg oral tablet, extended release 1 tablet = 50 mg, By Mouth, Daily, do not crush or chew, # 30 tablet, 11 Refills, Maintenance, 08/11/22 12:51:00 EDT, ER Tablet, [facility], 153.7, cm, 07/11/22 10:57:00 EDT, [...] mL, 3 Refills, Maintenance, 10/08/23 10:28:00 EST, [facility], Partial fill upon patient request [...] Safety Implantable Status Assigning Authority Unknown Unknown [id number] Unknown 04/08/26 Unknown Unknown Active Unk nown Patient Care team information Care Team Personnel Name: Lashay Anderson RN Position: [facility] RN Member Role: Primary Care Nurse Name: Hazel Kilgore MD Position: [facility] Outreach Member Role: PCP Address: Address: [address] [place] [address] [place] [id number] Name: Hazel James RN Position: [facility] RN Member Role: Primary Care Nurse Name: Anastasia Wright RN Position: [facility] RN Member Role: Primary Care Nurse Name: Monique Kohli RN Position: [facility] Hospital Photography Intern Member Role: Primary Care Nurse Name: Maxine Stewart RN Position: [facility] RN Member Role: Primary Care Nurse Name: Delma Harrell RN Position: [facility] Onco RN Member Role: Primary Care Nurse Care Team Related Persons Name: MITRA WAYNE Address: home [address] [place] [address] Name: JOYCE ALCALA Address: [address] [address]
--- OUTSIDE RECORDS SUMMARY | 2024-02-15 13:12 | XMS_ITS | Continuity of Care Document ---
Author Organization [facility] Address [address] [place] [address]- Care Team Providers Care Relay Shop Supervisor Name Role Phone [place] Hazel FELIPE Primary Care Physician [place] [facility] [place] [id number] Date(s): 01/20/20 - 01/30/[address] [address]- [facility] Attending Physician: Jeremy Gaston Admitting Physician: AdmtrJeremy [...] 15:04:06 Start Date: 12/29/16 Status: Ordered Pen [place], 31 G x 5 mm BD Ultra [...]
--- OUTSIDE RECORDS SUMMARY | 2024-02-15 13:12 | XMS_ITS | Continuity of Care Document ---
Author Organization [facility] Address [address] [place] [address] [facility] [address] [place] [address]- Care Team Providers Care Jacquard Plate Maker Name Role Phone Magui Hazel FELIPE Primary Care Physician Encounter [facility] Date(s): 07/10/20 - 08/09/[address] [place] [address]- [facility] Attending Physician: Jeremy Gaston Admitting Physician: AdmtrJeremy Referring Physician: Admtr, Ar8 [...] Refills, Maintenance, 06/27/20 14:13:00 EDT, ER Tablet, [facility], 155.4, cm, 04/30/20 11:09:00 EDT, [...] 15:04:06 Start Date: 12/29/16 Status: Ordered Pen [place], 31 G x 5 mm BD Ultra [...] Most recent to oldest [Reference Range]: 1 Oxygen Saturation [94-100 %] 98 % (02/25/17 10:19 AM) Pulse Rate [55-90 bpm] 82 bpm (02/25/17 10:19 AM) Blood Pressure [90-138/55-84 mm Hg] 142/ 95mm Hg *H* (02/25/17 10:19 AM) Temperature [96.8-100.4 DegF] 98.6 DegF (02/25/17 10:19 AM) Mode of Delivery (Oxygen) Room air (02/25/17 10:19 AM) Blood pressure sites Arm, right (02/25/17 10:19 AM) Temperature Route Oral (02/25/17 10:19 AM) Social History Social History Type Response Smoking Status Former smoker; Tobac co user in household: No; Type: Cigarettes; Other: Quit 24 years ago; entered on: 12/29/16 Sex
[2024-02-15 14:28] VITALS: BP 145/63; PULSE 61; RESP 18; TEMP 36.5; O2SAT 97
== END 2024-02-15 14:28 | disposition home or self-care (01) ==
PROVIDERS: Emergency Provider Emergency Medicine; PCP Family Medicine
DX: Z04.3 Encounter for examination and observation following other accident (principal); M79.642 Pain in left hand; M79.641 Pain in right hand; M25.561 Pain in right knee; M25.562 Pain in left knee; R51.9 Headache, unspecified; I10 Essential (primary) hypertension; J45.909 Unspecified asthma, uncomplicated; Z91.81 History of falling
CPT/HCPCS: 70450; 70486; 72125; 73130; 73564; 99282; 99284

== ENCOUNTER 2024-05-24 14:14 | Outpatient (REF) | payer MEDICARE, SELFPAY ==
[2024-05-24 14:57] LABS: MANUAL DIFF FLAG NO
[2024-05-24 16:08] LABS: Appearance Urine Clear; Color Urine Yellow; Glucose Urine UA >=1000 mg/dL (Negative); Leukocyte Esterase Urine Trace (Negative); Nitrite Urine Negative (Negative); Specific Gravity - Urine 1.025 (1.005-1.025); UMIC TRIGGER UA YES; Urine Blood Trace (Negative); Urine Ketones Negative (Negative); Urine Protein Negative (Neg-Trace)
[2024-05-24 16:08] LABS: Basophils Percent Auto 0.3 % (0-2); Eosinophils Absolute Auto 0.1 X10*3/uL (0.0-0.4); Eosinophils Percent Auto 1.1 % (0-4); Hematocrit 41.8 % (37.0-47.0); Imm Gran Abs Auto 0.03 X10*3/uL (0.00-0.03); Imm Gran Pct Auto 0.5 % (0.0-0.4); Lymphocytes Absolute Auto 1.4 X10*3/uL (1.2-4.9); Lymphocytes Percent Auto 21.7 % (20-40); Mean Corpuscular HGB Conc 28.7 g/dl (31.0-35.0); Mean Corpuscular Hemoglobin 23.5 pg (27.0-33.0); Mean Corpuscular Volume 81.8 fL (80.0-98.0); Monocytes Absolute Auto 0.5 X10*3/uL (0.1-1.2); Monocytes Percent Auto 8.1 % (2-11); Neutrophils Absolute Auto 4.4 x10*3/uL (2.0-8.3); Neutrophils Percent Auto 68.3 % (45-73); Platelet Count 167 X10*3/uL (160-400); Red Blood Count 5.11 X10*6/uL (4.20-5.50); Red Cell Distribution Width 14.6 % (11.0-16.0); White Blood Count 6.5 X10*3/uL (4.8-10.8)
[2024-05-24 16:13] LABS: Bacteria Urine None Seen (None Seen); Hyaline Casts Urine 0-2 /LPF (0-2); Squamous Epithelial Cell Urine 0-2 /HPF (0-2)
[2024-05-24 16:36] LABS: Anion Gap 12 (12-20); Blood Urea Nitrogen 26 mg/dL (9-16); Calcium 10.3 mg/dL (8.4-10.2); Carbon Dioxide 33 mmol/L (22-29); Chloride 101 mmol/L (96-108); Estimated Glomerular Filt Rate 48; Magnesium 2.1 mg/dL (1.6-2.6); Phosphorus 3.6 mg/dL (2.7-4.5); Potassium 5.2 mmol/L (3.3-5.1); Sodium 141 mmol/L (135-145)
[2024-05-24 16:39] LABS: Creatinine Urine 65.13 mg/dL; Microalbum/Creatinine Ratio Ur 13.8 ug/mg cr (<30); Total Protein Urine Random < 7 mg/dL (<12)
[2024-05-25 06:06] LABS: Parathyroid Hormone Intact 51.8 pg/mL (8.7-77.1)
[2024-05-28 13:39] LABS: VITAMIN D (1,25 OH) D3 26 pg/mL; Vit D (1,25-Dihydroxy) Total 26 pg/mL (18-72); Vitamin D (1,25 OH) D2 <8 pg/mL
== END 2024-05-24 14:15 | disposition home or self-care (01) ==
LOC: HO.LAB 14:14
PROVIDERS: PCP Family Medicine; Visit Provider Internal Medicine Nephrology
DX: E11.21 Type 2 diabetes mellitus with diabetic nephropathy (principal); N18.32 Chronic kidney disease, stage 3b; N25.0 Renal osteodystrophy
CPT/HCPCS: 36415; 80051; 81001; 82040; 82043; 82310; 82565; 82570; 82652; 83735; 83970; 84100; 84156; 84520; 85025; 87086

== ENCOUNTER 2024-07-21 10:41 | Outpatient (REF) | payer MEDICARE, SELFPAY ==
[2024-07-21 13:45] LABS: Estimated Average Glucose 177 mg/dL; Hemoglobin A1c % 7.8 % (<6.0)
[2024-07-21 14:10] LABS: Alanine Aminotransferase 30 U/L (0-31); Albumin Level 3.8 g/dL (3.5-5.0); Alkaline Phosphatase 63 U/L (39-117); Anion Gap 13 (12-20); Aspartate Amino Transferase 25 U/L (5-31); Bilirubin Direct 0.1 mg/dL (0.0-0.5); Bilirubin Total 0.3 mg/dL (0.0-1.0); Blood Urea Nitrogen 18 mg/dL (9-16); Carbon Dioxide 30 mmol/L (22-29); Chloride 104 mmol/L (96-108); Cholesterol 130 mg/dL (<200); Estimated Glomerular Filt Rate 54; Glucose Random 83 mg/dL (60-115); HDL Cholesterol 43 mg/dL (>40); LDL Cholesterol Calculated 65 mg/dL (<100); Potassium 4.5 mmol/L (3.3-5.1); Sodium 142 mmol/L (135-145); Total Protein 7.1 g/dL (6.5-8.0); Triglycerides 114 mg/dL (<150)
[2024-07-21 14:17] LABS: Creatinine Urine 70.01 mg/dL; Microalbum/Creatinine Ratio Ur 61.4 ug/mg cr (<30)
== END 2024-07-21 10:42 | disposition home or self-care (01) ==
LOC: HO.HHCL 10:41
PROVIDERS: Visit Provider Family Medicine
DX: E11.22 Type 2 diabetes mellitus with diabetic chronic kidney disease (principal); N18.31 Chronic kidney disease, stage 3a
CPT/HCPCS: 36415; 80048; 80061; 80076; 82043; 82570; 83036

== ENCOUNTER 2024-08-11 16:09 | Emergency (ER) | payer MEDICARE, SELFPAY ==
--- NOTE | ~2024-08-11 | XR_ITS ---
EXAMINATION: XR HAND, LEFT CLINICAL INFORMATION: Fall, pain. COMPARISON: Radiograph left hand 02/15/2024. TECHNIQUE: PA, lateral, and oblique views of the left hand. FINDINGS: No acute fracture or dislocation. 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 Unchanged small calcific densities adjacent to the second and third MCP joints. Scattered vascular calcifications. XR/XR hand LT min 3V IMPRESSION: No significant change compared to 02/15/2024. No acute fracture or dislocation. Electronically signed by: Yolanda Anderson MD 08/11/2024 06:42 PM EDT
--- NOTE | ~2024-08-11 | XR_ITS ---
EXAMINATION: XR ELBOW, LEFT CLINICAL INFORMATION: Pain, fall. COMPARISON: None available. TECHNIQUE: AP, lateral, and oblique views of the left elbow. FINDINGS: No fracture or malalignment. No joint effusion. Nonspecific diffuse soft tissue thickening. Scattered vascular calcifications. XR/XR elbow LT min 3V IMPRESSION: 1. No acute fracture or malalignment. 2. Nonspecific diffuse soft tissue thickening. Electronically signed by: Yolanda Anderson MD 08/11/2024 06:36 PM EDT
--- NOTE | ~2024-08-11 | CT_ITS ---
EXAMINATION: CT brain and CT cervical spine without contrast. CLINICAL INDICATION: Fall with head strike. COMPARISON: CT brain and CT cervical spine 02/15/2024. TECHNIQUE: 5 mm thin axial and reformatted 2 mm thin sagittal and coronal images of brain were obtained without contrast. Subsequently axial 3 mm thin and reformatted 3 mm thin sagittal and coronal images of cervical spine were obtained. DLP 1079. This CT examination was performed using dose optimization technique as appropriate, variously including the following: Automated exposure control Adjustment of MA and/or KV according to patient size(this includes techniques or standardized protocols for targeted exams where dose is matched to indication/reason for exam; extremities or head. Use of iterative reconstruction techniques. FINDINGS: There is no acute intra-axial, extra-axial bleed, masses or midline shift. There is no acute infarction in evolution. There is no edema. The garber to white matter differentiation is maintained normal. The lateral ventricles are symmetrical in size but enlarged. Bone windows reveal no calvarial abnormality. There is no scalp soft tissue abnormality. Bilateral paranasal sinuses and mastoid air cells are well-aerated. Cervical spine: There is mild straightening of cervical lordosis. The vertebral heights, alignment and disc heights are normal. There is bilateral C4-5, left C3-4 joint arthropathy and hypertrophy. The craniovertebral junction and the C1-C2 alignment is normal. There is no visible acute fracture, dislocation or subluxation seen. No aggressive lytic or sclerotic process seen. The prevertebral and paravertebral soft tissues are normal. The airway is widely patent. The lung apices are clear. The thyroid lobes are symmetrical and normal. No neck mass or abnormal lymph nodes visualized. CT/CT cervical spine wo IV con IMPRESSION: 1. No acute intracranial process seen. 2. There is no acute fracture, dislocation or subluxation in cervical spine. There is mild straightening of cervical lordosis likely spasm. Degenerative facet joint arthropathy as described above Electronically signed by: Onofre Mora MD 08/11/2024 06:17 PM EDT
--- NOTE | ~2024-08-11 | XR_ITS ---
EXAMINATION: XR HIP, LEFT CLINICAL INFORMATION: Pain, fall. COMPARISON: Radiograph left hip 12/29/2017. TECHNIQUE: Two views of the left hip. FINDINGS: No acute fracture or subluxation. SI joints are symmetric. Pelvic rim and pubic symphysis are maintained. 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 Multifocal bony productive changes/enthesophytes. No aggressive appearing osseous lesions. No significant soft tissue abnormality. Multiple surgical clips overlying the pelvis and left lower quadrant. Stimulator device overlying the left lower quadrant. Pelvic phleboliths. Vascular calcifications. XR/XR hip LT w PEL1V IMPRESSION: No acute fracture or malalignment. Chronic degenerative changes. Electronically signed by: Yolanda Anderson MD 08/11/2024 06:44 PM EDT
--- NOTE | ~2024-08-11 | XR_ITS ---
EXAMINATION: XR SHOULDER, LEFT CLINICAL INFORMATION: Pain, fall. COMPARISON: Chest radiograph 12/31/2019. TECHNIQUE: Three views of the left shoulder. FINDINGS: No acute fracture or dislocation. Moderate degenerative osteoarthritis of the acromioclavicular and glenohumeral joints. Minimal calcific densities over the insertion site of the supraspinatus tendon. Scattered calcified granulomas in the lungs. No significant soft tissue abnormality. Partially seen stimulator lead overlying the thoracic spine. XR/XR shoulder LT min 2V IMPRESSION: 1. No acute fracture or dislocation. 2. 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 3. Minimal calcific tendinopathy of the supraspinatus tendon. Electronically signed by: Yolanda Anderson MD 08/11/2024 06:38 PM EDT
--- NOTE | ~2024-08-11 | XR_ITS ---
EXAMINATION: XR CHEST CLINICAL INFORMATION: Pain, fall. COMPARISON: Chest radiograph 12/31/2019. CTA chest 12/31/2019. TECHNIQUE: 2 views of the chest were obtained. FINDINGS: No focal consolidation, pleural effusion or pneumothorax. Unchanged cardiomediastinal silhouette. Redemonstration of multiple calcified granulomas. Partially seen neurostimulator leads overlying the thoracic spine. No displaced osseous fractures. XR/XR chest 2V IMPRESSION: 1. No acute cardiopulmonary findings. 2. Multiple calcified granulomas. 3. No displaced osseous fractures. Electronically signed by: Yolanda Anderson MD 08/11/2024 06:40 PM EDT
--- NOTE | 2024-08-11 16:11 | ECG_ITS ---
Test Reason : chest pain Blood Pressure : / mmHG Vent. Rate : 065 BPM Atrial Rate : 065 BPM P-R Int : 204 ms QRS Dur : 084 ms QT Int : 392 ms P-R-T Axes : 060 -20 044 degrees QTc Int : 407 ms Normal sinus rhythm Normal ECG When compared with ECG of 31-DEC-2019 16:57, No significant change was found Referred By: Generic ED Physician Electronically Signed By:SAMAN MATIAS
--- NOTE | 2024-08-11 16:22 | MHC.EDTECH ---
ekg performed at 1609 in triage - Reviewed by Dr. Lindsay. Did not cross over in system.
[2024-08-11 17:07] VITALS: BP 135/68; PULSE 69; RESP 18; TEMP 36.1; O2SAT 99; BMI 32.9
--- NOTE | 2024-08-11 17:10 | ED_ITS ---
HPI - Fall General Chief Complaint: Fall Stated Complaint: chest pain fell today Time Seen by Provider: 08/11/24 21:48 Source: patient and family Mode of arrival: ambulatory Limitations: no limitations History of Present Illness ED Provider: FITO HPI Narrative: 79 yo female with PMH of head injury, asthma, anemia, LORI, HTN, HLD, HTN here with c/o trip and fall on driveway fell backwards hitting L shoulder upper back and hitting head. No LOC. Has abrasion to left elbow. She is not on blood thinners. Has been at baseline. MD complaint: fall Onset (ago): hour(s) (several) Fall from: standing Place fall occurred: street Loss of consciousness: none Prolonged down time: no Symptoms prior to fall: none Context: tripped/slipped Location of injury: head Location of injury - extremities: left: shoulder, elbow and hand Severity: moderate Quality: dull Associated symptoms (after fall): denies Related Data Home Medications ?Medication ?Instructions ?Recorded ?Confirmed albuterol sulfate 90 mcg/actuation 0 mcg inhalation 07/16/21 aerosol inhaler (Ventolin HFA) amlodipine 5 mg tablet 5 mg PO QAM 07/16/21 dapagliflozin propanediol 5 mg 5 mg PO DAILY 07/16/21 tablet (Farxiga) doxazosin 4 mg tablet 0 mg PO 07/16/21 ferrous sulfate 325 mg (65 mg 325 mg PO TID 07/16/21 iron) tablet (FeroSul) fluticasone propionate 110 0 mcg inhalation 07/16/21 mcg/actuation HFA aerosol inhaler (Flovent HFA) furosemide 40 mg tablet 40 mg PO 07/16/21 gabapentin 600 mg tablet 600 mg PO 07/16/21 insulin aspart U-100 100 unit/mL subcut 07/16/21 (3 mL) subcutaneous pen (Novolog FlexPen U-100 Insulin aspart) isosorbide mononitrate 30 mg 30 mg PO QAM 07/16/21 tablet,extended release 24 hr mirabegron 50 mg tablet,extended 50 mg PO DAILY 07/16/21 release 24 hr (Myrbetriq) rosuvastatin 20 mg tablet 20 mg PO BEDTIME 07/16/21 sennosides 8.6 mg tablet (Senna 0 mg PO 07/16/21 Laxative) omeprazole 20 mg capsule,delayed 20 mg PO QAM 04/26/22 release ascorbate calcium (vitamin C) 500 500 mg PO DAILY 06/02/23 mg tablet Allergies Allergy/AdvReac Type Severity Reaction Status Date / Time No Known Allergies Allergy Mild NONE Verified 08/11/24 17:11 Review of Systems 2 Review of Systems: Constitutional : No Fever, No Chills, No Fatigue ENT/Mouth : No sore throat, No Rhinorrhea Eyes: No Eye Pain, No Swelling, No Redness Cardiovascular : No Chest Pain, No SOB, No Dyspnea on Exertion Respiratory : No Cough, No Sputum Gastrointestinal : No Nausea, No Vomiting, No Diarrhea, No abdominal Pain Genitourinary : No Dysuria, No Urinary Frequency, No Hematuria, Musculoskeletal : pos joint pain, No Myalgias, No Joint Swelling Skin : No Skin Lesions, No rash, pos abrasions Neuro : No Weakness, No Numbness, No Dizziness, positive Headache Psych : No Anxiety/Panic, No Depression All other systems reviewed and are negative [facility] Past Medical History Attestation statement: The following information was validated with the patient. Source: old records reviewed Medical History Eye disorder Asthma Chronic anemia Dyslipidemia HTN (hypertension) Family History Family History Father No problems noted. Mother No problems noted. Social History Social History Household Members: Family Alcohol intake: never Patient Tobacco Use Status: Former Tobacco user Smoked in Last 30 Days: No Use of substances other than those prescribed or required for medical reasons: No Advance Directives: No Advance Directives Information Provided: No Do you have a plan to hurt others: No Plan Current occupational status: retired Current occupation: right hand dominant Physical Exam 2 Vital Signs: Vital Signs: Last Vital Signs Temp 97.9 F 08/11/24 22:50 Pulse 69 08/11/24 22:50 Resp 18 08/11/24 22:50 BP 172/43 H 08/11/24 22:50 Pulse Ox 98 08/11/24 22:50 O2 Del Method Room Air 08/11/24 22:50 BMI result Body Mass Index 32.9 Appearance: Alert. Oriented X3. No acute distress. Eyes: Pupils equal, round and reactive to light. ENT: Pharynx normal. no contusion noted Neck: Normal inspection. Neck supple. CVS: Normal heart rate and rhythm. Pulses normal. Respiratory: No respiratory distress. Breath sounds normal. Back: L upper posterior shoulder blade superficial abrasion Abdomen: Soft and nontender. Skin: Skin warm and dry. Normal skin color. Normal skin turgor. Extremities: No lower extremity edema. L elbow abrasion noted Neuro: Oriented X 3. No motor deficit. No sensory deficit. Course Course Course Narrative: This is a Rapid Medical Examination (RME) performed by Jatinder Corrales PA-C in triage. Full HPI, ROS, assessment and treatment plan per primary provider in the Main ED. 79 yo female with history of HTN, HLD, anemia, asthma, LORI, on eliquis for ?Afib who presents to the ER for evaluation after she tripped and fell in front of her building [facility] 4pm. she hit her head and fell onto her left side. no LOC. reports left sided headache, left shoulder pain, left sided chest pain, left elbow pain and left hip pain. chest pain started after the fall and is worse when moving her LUE. skin tears noted on the left elbow and left hand. left anterior chest wall tenderness. lungs CTAB. Plan: CT head/c-spine, XR left shoulder, elbow, hip, CXR, lab workup Medical Decision Making Medical Decision Making [facility] Narrative: 79 yo female with PMH of head injury, asthma, anemia, LORI, HTN, HLD, HTN here with c/o mechanical fall now with pain and abrasions to L side of body at this time also c/o hitting head not on thinners - will obtain xrays of L hand, elbow, shoulder, pelvis and CT head/cspine. CXR ordered as well. She has no other signs of injury. She is GCS 15 and not toxic, Will dress L elbow wound as well. Differential Diagnosis Differential Diagnoses: The differential diagnosis associated with the presentation includes abrasion, head injury, fracture, sprain Admission/Observation Consideration of admission/observation: Escalation of care including admission/observation considered at baseline stable for DC Lab Data [facility] Lab Attestation statement: I reviewed the patient's lab results. 08/11/24 18:07 08/11/24 18:07 Labs: Lab Results 08/11/24 08/11/24 Range/Units 18:07 21:43 WBC 6.5 (4.8-10.8) X10*3/uL RBC 5.04 (4.20-5.50) X10*6/uL Hgb 12.2 (12.0-16.0) g/dl Hct 40.6 (37.0-47.0) % MCV 80.6 (80.0-98.0) fL MCH 24.2 L (27.0-33.0) pg MCHC 30.0 L (31.0-35.0) g/dl RDW 15.3 (11.0-16.0) % Plt Count 153 L (160-400) X10*3/uL MPV 10.5 (9.4-12.3) fL Immature Gran % (Auto) 0.2 (0.0-0.4) % Neut % (Auto) 63.3 (45-73) % Lymph % (Auto) 22.9 (20-40) % [place] % (Auto) 10.9 (2-11) % Eos % (Auto) 2.4 (0-4) % Baso % (Auto) 0.3 (0-2) % Lymph # (Auto) 1.5 (1.2-4.9) X10*3/uL [place] # (Auto) 0.7 (0.1-1.2) X10*3/uL Eos # (Auto) 0.2 (0.0-0.4) X10*3/uL Baso # (Auto) 0.0 (0.0-0.2) X10*3/uL Abs Immat Gran (auto) 0.01 (0.00-0.03) X10*3/uL Absolute Neuts (auto) 4.1 (2.0-8.3) x10*3/uL Absolute Nucleated RBC 0.000 (0.0-0.012) X10*3/uL Nucleated RBC % (auto) 0.0 (0.0-0.2) /100WBC Sodium 144 (135-145) mmol/L Potassium 5.2 H (3.3-5.1) mmol/L Chloride 105 (96-108) mmol/L Carbon Dioxide 32 H (22-29) mmol/L Anion Gap 12 (12-20) BUN 30 H (9-16) mg/dL Creatinine 1.07 (0.5-1.4) mg/dL Estim Creat Clear Calc 40.8 Estimated GFR 49 Random Glucose 116 H (60-115) mg/dL Calcium 9.8 (8.4-10.2) mg/dL Magnesium 2.0 (1.6-2.6) mg/dL Total Bilirubin 0.2 (0.0-1.0) mg/dL Direct Bilirubin < 0.2 (0.0-0.5) mg/dL AST 26 (5-31) U/L ALT 24 (0-31) U/L Alkaline Phosphatase 67 (39-117) U/L Troponin I High Sens 5.2 4.7 (<3.5-17.0) ng/L Total Protein 7.6 (6.5-8.0) g/dL Albumin 4.0 (3.5-5.0) g/dL Independent Interpretation I performed an independent interpretation of an: EKG, Plain X-Ray (no frx) and CT Scan (no trauma) Interpretation: Rate: 65 Rhythm: NSR with 1st degree AVB [place]: normal Normal P waves. Normal QRS complex. ST T wave : normal no FARHANA qTC: 407 prior studies: no acute ischemia The study has been interpreted contemporaneously by me. . Radiology Impression Discussion of test interpretation with radiology: I have reviewed the radiologist's reading. External Record Review External record reviewed: Outpatient record Prescription Management I considered prescription management with: Other Discharge Plan Discharge Clinical Impression: Abrasion Head injury Qualifiers: Encounter type: initial encounter Qualified Code(s): S09.90XA - Unspecified injury of head, initial encounter Contusion of rib on left side Qualifiers: Encounter type: initial encounter Qualified Code(s): S20.212A - Contusion of left front wall of thorax, initial encounter Patient Disposition: Home, Self-Care Instructions: Head Injury (ED), Contusion in Adults (ED), Abrasion (ED), Rib Contusion (ED) Additional Instructions: labs reassuring CT head and cervical spine negative xrays of L shoulder, chest, L hand, L elbow no trauma keep L elbow abrasions clean and dry - monitor for redness, yellow drainage, fevers, apply bacitracin twice a day for 5 day return for confusion, vomiting, difficulty breathing, cough with blood in sputum, or any other concerns. Prescriptions: No Action Myrbetriq 50 mg tablet extended release 24 hr 50 mg PO DAILY Farxiga 5 mg tablet 5 mg PO DAILY doxazosin 4 mg tablet 0 mg PO rosuvastatin 20 mg tablet 20 mg PO BEDTIME ferrous sulfate [FeroSul] 325 mg (65 mg iron) tablet 325 mg PO TID isosorbide mononitrate 30 mg tablet extended release 24 hr 30 mg PO QAM sennosides [Senna Laxative] 8.6 mg tablet 0 mg PO furosemide 40 mg tablet 40 mg PO gabapentin 600 mg tablet 600 mg PO insulin aspart U-100 [Novolog FlexPen U-100 Insulin] 100 unit/mL (3 mL) insulin pen subcut Flovent HFA 110 mcg/actuation HFA aerosol inhaler 0 mcg inhalation albuterol sulfate [Ventolin HFA] 90 mcg/actuation HFA aerosol inhaler 0 mcg inhalation amlodipine 5 mg tablet 5 mg PO QAM omeprazole 20 mg capsule,delayed release(DR/EC) 20 mg PO QAM ascorbate calcium (vitamin C) 500 mg tablet 500 mg PO DAILY Interventions: ED Discharge Assessment Last Done: 08/11/24 22:50 Discharge Date/Time: 08/11/24 22:52 Print Language: Romanian
[2024-08-11 18:13] LABS: MANUAL DIFF FLAG NO
[2024-08-11 18:14] LABS: Basophils Percent Auto 0.3 % (0-2); Eosinophils Absolute Auto 0.2 X10*3/uL (0.0-0.4); Eosinophils Percent Auto 2.4 % (0-4); Hematocrit 40.6 % (37.0-47.0); Hemoglobin 12.2 g/dl (12.0-16.0); Imm Gran Abs Auto 0.01 X10*3/uL (0.00-0.03); Imm Gran Pct Auto 0.2 % (0.0-0.4); Lymphocytes Absolute Auto 1.5 X10*3/uL (1.2-4.9); Lymphocytes Percent Auto 22.9 % (20-40); Mean Corpuscular Hemoglobin 24.2 pg (27.0-33.0); Mean Corpuscular Volume 80.6 fL (80.0-98.0); Mean Platelet Volume 10.5 fL (9.4-12.3); Monocytes Absolute Auto 0.7 X10*3/uL (0.1-1.2); Monocytes Percent Auto 10.9 % (2-11); Neutrophils Absolute Auto 4.1 x10*3/uL (2.0-8.3); Neutrophils Percent Auto 63.3 % (45-73); Platelet Count 153 X10*3/uL (160-400); Red Blood Count 5.04 X10*6/uL (4.20-5.50); Red Cell Distribution Width 15.3 % (11.0-16.0); White Blood Count 6.5 X10*3/uL (4.8-10.8)
[2024-08-11 18:29] LABS: Alanine Aminotransferase 24 U/L (0-31); Alkaline Phosphatase 67 U/L (39-117); Anion Gap 12 (12-20); Aspartate Amino Transferase 26 U/L (5-31); Bilirubin Direct < 0.2 mg/dL (0.0-0.5); Bilirubin Total 0.2 mg/dL (0.0-1.0); Blood Urea Nitrogen 30 mg/dL (9-16); Calcium 9.8 mg/dL (8.4-10.2); Carbon Dioxide 32 mmol/L (22-29); Chloride 105 mmol/L (96-108); Creatinine Clr Calc Pharmacy 40.8; Estimated Glomerular Filt Rate 49; Glucose Random 116 mg/dL (60-115); Potassium 5.2 mmol/L (3.3-5.1); Sodium 144 mmol/L (135-145); Total Protein 7.6 g/dL (6.5-8.0)
[2024-08-11 18:36] LABS: Troponin-I High Sensitivity 5.2 ng/L (<3.5-17.0)
--- OUTSIDE RECORDS SUMMARY | 2024-08-11 21:48 | XMS_ITS | Continuity of Care Document ---
Author Organization [facility] Address [address] [place] [id number] Care Team Providers Care Measuring Machine Operator Name Role Phone Hazel Kilgore MD Primary Care Physician [place] [facility] [place]/27/24 [facility] [address] [place] [id number] [place] Attending Physician: Jeremy Gaston Admitting Physician: AdmtrJeremy Referring Physician: Admtr, Jeremy Allergies, Adverse Reactions, Alerts No Known Allergies [...] tablet, 11 Refills, Maintenance, 01/30/24 16:21:00 EDT, [facility], 159, cm, 01/28/24 11:15:00 EDT, [...] mL, 3 Refills, Maintenance, 10/08/23 10:28:00 EST, [facility], Partial fill [...] Safety Implantable Status Assigning Authority Unknown Unknown [id number] Unknown 04/08/26 Unknown Unknown Active Unk nown Patient Care team information Care Team Personnel Name: Lashay Anderson RN Position: [facility] RN Member Role: Primary Care Nurse Name: Hazel Kilgore MD Position: [facility] Outreach Member Role: PCP Address: Address: [address] [place] [address] [place] [address] Name: Hazel James RN Position: [facility] RN Member Role: Primary Care Nurse Name: Anastasia Wright RN Position: [facility] RN Member Role: Primary Care Nurse Name: Monique Kohli RN Position: [facility] Hospital Touch Up Edger Member Role: Primary Care Nurse Name: Maxine Stewart RN Position: [facility] RN Member Role: Primary Care Nurse Name: Delma Harrell RN Position: [facility] Onco RN Member Role: Primary Care Nurse Care Team Related Persons Name: MITRA WAYNE Address: [address] [place] [address] Name: JOYCE ALCALA Address: home [address] [place] [id number]
--- OUTSIDE RECORDS SUMMARY | 2024-08-11 21:49 | XMS_ITS | Continuity of Care Document ---
Author Organization [facility] Address [address] [place] [address]- Care Team Providers Care Strand And Binder Controller Name Role Phone Magui FELIPE, Hazel Soriano Primary Care Physician [place] [facility] [place]24 [facility] [address] [place] [id number] Allergies, Adverse Reactions, Alerts No Known Allergies Medications amLODIPine 5 mg oral tablet 5 mg, 1, tablet, By Mouth, Daily, Refills 0, Maintenance, 03/12/17 11:32:25 Start Date: 03/12/17 Status: Ordered ammonium lactate 12% topical lotion 400 Gm, 0 Refill(s), APPLY TO SUNS OF FEET ONCE DAILY. AT NIGHT [facility], 0 Refills, 06/08/24 14:22:00 EDT, Partial fill upon patient request if the prescription is for a schedule II opioid drug. Start Date: 06/08/24 Status: Ordered amoxicillin 500 mg oral capsule 21 each, 0 Refill(s), TAKE 1 CAPSULE ORALLY EVERY 8 HOURS FOR 7 DAYS, 0 Refills, 06/08/24 14:22:00 EDT, Partial fill upon patient request if the prescription is for a schedule II opioid drug. Start Date: 06/08/24 Status: Ordered apixaban 5 mg oral tablet = 5 mg, By Mouth, 2 times a day, # 60 tablet, 0 Refills, Maintenance, 07/23/23 11:25:00 EDT, Tablet, [facility], Partial fill upon patient request if the prescription is for a schedule II opioid drug., 159, cm, 07/23/23 7:29:00 EDT... Start Date: 07/23/23 Status: Ordered aspirin 81 mg oral tablet 1 tablet = 81 mg, By Mouth, Daily, 0 Refills, Maintenance, 12/29/16 15:04:44 Start Date: 12/29/16 Status: Ordered Aspirin Enteric Coated 81 mg oral delayed release tablet 90 each, 0 Refill(s), TAKE 1 TABLET BY MOUTH AT BEDTIME, 0 Refills, 06/08/24 14:22:00 EDT, Partial fill upon patient request if the prescription is for a schedule II opioid drug. Start Date: 06/08/24 Status: Ordered Aspirin Low Dose 81 mg oral delayed release tablet 90 each, 0 Refill(s), TAKE 1 TABLET BY MOUTH AT BEDTIME, 0 Refills, 06/08/24 14:22:00 EDT, Partial fill upon patient request if the prescription is for a schedule II opioid drug. Start Date: 06/08/24 Status: Ordered Calcium 600 +D By Mouth, 0 Refills, Maintenance, 08/22/16 13:45:45 Start Date: 08/22/16 Status: Ordered calcium-vitamin D 600 mg-400 intl units oral tablet 180 each, 0 Refill(s), TAKE 1 TABLET BY MOUTH TWICE DAILY IN THE MORNING AND AT BEDTIME, 0 Refills,06/08/24 14:22:00 EDT, Partial fill upon patient request if the prescription is for a schedule II opioid drug. Start Date: 06/08/24 Status: Ordered Crestor 20 mg oral tablet 1 tablet = 20 mg, By Mouth, Daily at bedtime, 0 Refills, Maintenance, 07/01/16 9:49:40 Start Date: 07/01/16 Status: Ordered docusate sodium 100 mg oral capsule 60 each, 0 Refill(s), TAKE 1 CAPSULE BY MOUTH TWICE DAILY IN THE MORNING AND AT BEDTIME, 0 Refills,06/08/24 14:22:00 EDT, Partial fill upon patient request if the prescription is for a schedule II opioid drug. Start Date: 06/08/24 Status: Ordered doxazosin 4 mg oral tablet 1 tablet = 4 mg, By Mouth, Daily, 0 Refills, Maintenance, 07/01/16 9:49:26 Start Date: 07/01/16 Status: Ordered Eliquis 5 mg oral tablet 60 each, 0 Refill(s), TAKE 1 TABLET BY MOUTH TWICE DAILY IN THE MORNING AND IN THE EVENING, 0 Refills, 06/08/24 14:22:00 EDT, Partial fill upon patient request if the prescription is for a schedule II opioid drug. Start Date: 06/08/24 Status: Ordered Farxiga 10 mg oral tablet 1 tablet, By Mouth, Daily in AM, # 30 tablet, 11 Refills, Maintenance, 01/30/24 16:21:00 EDT, [facility], 159, cm, 01/28/24 11:15:00 EDT, Height, 86.2, kg, 08/04/23 11:45:00 EDT, Dry Weight Start Date: 01/30/24 Status: Ordered FeroSul 325 mg oral tablet 90 each, 0 Refill(s), TAKE 1 TABLET BY MOUTH THREE TIMES DAILY IN THE MORNING, AT NOON, AND AT BEDTIME, 0 Refills, 06/08/24 14:22:00 EDT, Partial fill upon patient request if the prescription is for a schedule II opioid drug. Start Date: 06/08/24 Status: Ordered ferrous sulfate 325 mg oral tablet 1 tablet = 325 mg, By Mouth, 3 times a day, 0 Refills, Maintenance, 12/29/16 15:03:37 Start Date: 12/29/16 Status: Ordered Freestyle Vik Sensor See Instructions, # 6 each, Refills 3, Tot. Refills 3, Maintenance, Vik 2 sensors. use 1 every 14days , use as directed for Type 2 Diabetes Mellitus 9 0days supplies, 06/06/24 13:24:00 EDT, Supply, 159, cm, 01/28/24 11:15:00 EDT, Height, 86.2, kg,... Start Date: 06/06/24 Stop Date: 10/04/24 Status: Ordered Freestyle Lite test strips Freestyle Lite test strips, See Instructions, # 50 each, Refills 6, Tot. Refills 6, Maintenance, Use to test glucose to calibrate sensor and to use as a back up if sensor supply issue. E11. 65, 04/21/24 14:35:00 EDT, Supply, 159, cm, 01/28/24 11:15:00... Start Date: 04/21/24 Status: Ordered furosemide 40 mg oral tablet 40 mg, 1, tablet, By Mouth, Daily, Refills 0, Maintenance, 07/01/16 9:48:03 Start Date: 07/01/16 Status: Ordered gabapentin 600 mg oral tablet 1 tablet = 600 mg, By Mouth, 3 times a day, 0 Refills, Maintenance, 07/01/16 9:49:10 Start Date: 07/01/16 Status: Ordered ibuprofen 800 mg oral tablet 15 each, 0 Refill(s), TAKE 1 TABLET ORALLY EVERY 8 HOURS FOR PAIN, Refills 0, 06/08/24 14:23:00 EDT, Partial fill upon patient request if the prescription is for a schedule II opioid drug. Start Date: 06/08/24 Status: Ordered Imdur 30 mg oral tablet, extended release 1, tablet, By Mouth, Daily in AM, # 30 tablet, Refills 0, Maintenance, 07/22/23 21:44:00 EDT, Partial fill upon patient request if the prescription is for a schedule II opioid drug. Start Date: 07/22/23 Status: Ordered isosorbide mononitrate 30 mg oral tablet, extended release 90 each, 0 Refill(s), TAKE 1 TABLET BY MOUTH EVERY MORNING, 0 Refills, 06/08/24 14:22:00 EDT, Partial fill upon patient request if the prescription is for a schedule II opioid drug. Start Date: 06/08/24 Status: Ordered Lantus Solostar Pen 100 units/mL subcutaneous solution = 30 units, Subcutaneous Injection, Daily at bedtime, 0 Refills, Maintenance, 07/01/16 9:50:48 EDT Start Date: 07/01/16 Status: Ordered lisinopril 30 mg oral tablet 1 tablet = 30 mg, By Mouth, Daily, 0 Refills, Maintenance, 07/01/16 9:48:34 Start Date: 07/01/16 Status: Ordered LORazepam 0.5 mg oral tablet 30 each, 0 Refill(s), TAKE 1 TABLET BY MOUTH ONCE DAILY NEEDED, 0 Refills, 06/08/24 14:22:00 EDT, Partial fill upon patient request if the prescription is for a schedule II opioid drug. Start Date: 06/08/24 Status: Ordered LORazepam 1 mg oral tablet 1 Unknown, Oral, 0 Refill(s), Take 1 mg by mouth every 6 (six) hours if needed for anxiety, 0 Refills, 06/08/24 14:22:00 EDT, Partial fill upon patient request if the prescription is for a schedule II opioid drug. Start Date: 06/08/24 Status: Ordered magnesium oxide 400 mg oral tablet 1 tablet = 400 mg, By Mouth, Daily, 0 Refills, Maintenance, 02/10/17 13:16:40 Start Date: 02/10/17 Status: Ordered metoprolol 25 mg oral tablet 25 Unknown, Oral, 0 Refill(s), Take 25 mg by mouth in the morning and 25 mg in the evening., Refills 0, 06/08/24 14:22:00 EDT, Partial fill upon patient request if the prescription is for a schedule II opioid drug. Start Date: 06/08/24 Status: Ordered metoprolol 25 mg oral tablet, extended release 25 mg, By Mouth, Daily, # 30 tablet, Refills 0, Tot. Refills 0, Maintenance, 07/23/23 11:24:00 EDT,Route to Pharmacy Electronically, [facility], Partial fill upon patient requestif the prescription is for a schedule II opioid roshan... Start Date: 07/23/23 Status: Ordered Metoprolol Succinate ER 25 mg oral tablet, extended release 90 each, 0 Refill(s), TAKE 1 TABLET BY MOUTH EVERY MORNING, 0 Refills, 06/08/24 14:22:00 EDT, Partial fill upon patient request if the prescription is for a schedule II opioid drug. Start Date: 06/08/24 Status: Ordered mirabegron 50 mg oral tablet, extended release 1 tablet = 50 mg, By Mouth, Daily, do not crush or chew, # 30 tablet, 11 Refills, Maintenance, 08/11/22 12:51:00 EDT, ER Tablet, [facility], 153.7, cm, 07/11/22 10:57:00 EDT, Height, 91.8, kg, 04/28/22 10:58:00 EDT, Dry Weight Start Date: 08/11/22 Status: Ordered Miscellaneous Rx 0 Refills, 6 each, 0 Refill(s), USE DIRECTED TO TEST BLOOD SUGAR CHANGE EVERY 14 DAYS, 06/08/24 14:22:00 EDT Start Date: 06/08/24 Status: Ordered NovoLOG FlexPen 100 units/mL injectable solution 15 mL, 0 Refill(s), INJECT 0-4 UNITS BEFORE BREAKFAST, 12-14 UNITS BEFORE LUNCH, AND 14-16 UNITS BEFORE SUPPER, 0 Refills, 06/08/24 14:22:00 EDT, Partial fill upon patient request if the prescriptionis for a schedule II opioid drug. Start Date: 06/08/24 Status: Ordered NovoLOG FlexPen 100 units/mL subcutaneous solution Subcutaneous Injection, 3 times a day before meals, 0 Refills, Maintenance, 07/01/16 9:50:36 Start Date: 07/01/16 Status: Ordered ofloxacin 0.3% ophthalmic solution 10 mL, 0 Refill(s), INSTILL 1 DROP INTO RIGHT EYE TWICE A DAY, 0 Refills, 06/08/24 14:22:00 EDT, Partial fill upon patient request if the prescription is for a schedule II opioid drug. Start Date: 06/08/24 Status: Ordered omeprazole 20 mg oral delayed release tablet 1 tablet = 20 mg, By Mouth, Daily, 0 Refills, Maintenance, 12/29/16 15:04:06 Start Date: 12/29/16 Status: Ordered omeprazole 20 mg oral enteric coated capsule 90 each, 0 Refill(s), TAKE 1 CAPSULE BY MOUTH EVERY MORNING BEFORE BREAKFAST, 0 Refills, 06/08/24 14:22:00 EDT, Partial fill upon patient request if the prescription is for a schedule II opioid drug. Start Date: 06/08/24 Status: Ordered Ozempic (1 mg dose) 4 mg/3 mL subcutaneous solution = 1 mg, Subcutaneous Injection, Every week, # 5 each, 3 Refills, Maintenance, 03/30/24 9:59:00 EDT,Solution, [facility], Partial fill upon patient request if the prescription is for a schedule II opioid drug., 159, cm, 01/28/24 11... Start Date: 03/30/24 Stop Date: 07/28/24 Status: Ordered prednisolone ophthalmic acetate 1% suspension 10 mL, 0 Refill(s), INSTILL 1 DROP INTO RIGHT EYE TWICE A DAY, 0 Refills, 06/08/24 14:22:00 EDT, Partial fill upon patient request if the prescription is for a schedule II opioid drug. Start Date: 06/08/24 Status: Ordered rosuvastatin 20 mg oral tablet 90 each, 0 Refill(s), TAKE 1 TABLET BY MOUTH AT BEDTIME, 0 Refills, 06/08/24 14:22:00 EDT, Partial fill upon patient request if the prescription is for a schedule II opioid drug. Start Date: 06/08/24 Status: Ordered silver sulfADIAZINE 1% topical cream 50 Gm, 0 Refill(s), APPLY TOPICALLY TO THE AFFECTED AREA(S) TWICE DAILY DIRECTED FOR 10 DAYS, 0 Refills, 06/08/24 14:22:00 EDT, Partial fill upon patient request if the prescription is for a schedule II opioid drug. Start Date: 06/08/24 Status: Ordered traMADol 50 mg oral tablet 1 tablet = 50 mg, By Mouth, Daily, PRN Pain , Severe, 0 Refills, Maintenance, 04/28/22 11:01:00 EDT, Partial fill upon patient request if the prescription is for a schedule II opioid drug. Start Date: 04/28/22 Status: Ordered Trulicity Pen 3 mg/0.5 mL subcutaneous solution See Instructions, INJECT ONE PEN (= 3MG) SUBCUTANEOUSLY ONCE A WEEK DIRECTED, # 6 mL, 3 Refills,Maintenance, 06/08/24 15:26:00 EDT, [facility], Dx: E11.9; 90 day supply, 159, cm, 06/08/24 14:37:00 EDT, Height, 86.2, kg, ... Start Date: 06/08/24 Status: Ordered Vitamin C By Mouth, Daily, 0 Refills, Maintenance, 03/12/17 11:32:49 Start Date: 03/12/17 Status: Ordered Vitamin C 500 mg oral tablet 60 each, 0 Refill(s), TAKE 1 TABLET BY MOUTH TWICE DAILY IN THE MORNING AND AT BEDTIME, 0 Refills, 06/08/24 14:22:00 EDT, Partial fill upon patient request if the prescription is for a schedule II opioid drug. Start Date: 06/08/24 Status: Ordered Problem List Condition Confirmation Course [...] Safety Implantable Status Assigning Authority Unknown Unknown [id number] Unknown 04/08/26 Unknown Unknown Active Abdelrahman silva Patient Care team information Care Team Personnel Name: Lashay Anderson RN Position: [facility] RN Member Role: Primary Care Nurse Name: Hazel Kilgore MD Position: [facility] Outreach Member Role: PCP Address: Address: [address] [place] [address] [place] [address] Name: Hazel James RN Position: [facility] RN Member Role: Primary Care Nurse Name: Anastasia Wright RN Position: [facility] RN Member Role: Primary Care Nurse Name: Monique Kohli RN Position: [facility] Hospital Supervisor Tubing Member Role: Primary Care Nurse Name: Maxine Stewart RN Position: [facility] RN Member Role: Primary Care Nurse Name: Delma Harrell RN Position: [facility] Onco RN Member Role: Primary Care Nurse Care Team Related Persons Name: MITRA WAYNE Address: [address] [place] [address] Name: JOYCE ALCALA Address: home [address] [place] [id number]
--- OUTSIDE RECORDS SUMMARY | 2024-08-11 21:49 | XMS_ITS | Continuity of Care Document ---
Author Organization [facility] Address [address] [place] [id number]- Care Team Providers Care Internet Consultant Name Role Phone Hazel Kilgore MD Primary Care Physician [place] [facility] [place]26[place]24 - 06/25/24 [facility] [address] [place] [id number]- Attending Physician: Jeremy Gaston Admitting Physician: Jeremy [...] 0 Refills, Maintenance, 07/23/23 11:25:00 EDT, Tablet, [facility], Partial fill upon patient request if [...] tablet, 11 Refills, Maintenance, 01/30/24 16:21:00 EDT, [facility], 159, cm, 01/28/24 11:15:00 EDT, Height, [...] Maintenance, 07/23/23 11:24:00 EDT,Route to Pharmacy Electronically, [facility], Partial fill upon patient requestif the [...] Refills, Maintenance, 08/11/22 12:51:00 EDT, ER Tablet, [facility], 153.7, cm, 07/11/22 10:57:00 EDT, Height, [...] each, 3 Refills, Maintenance, 03/30/24 9:59:00 EDT,Solution, [facility], Partial fill upon patient request if [...] 6 mL, 3 Refills,Maintenance, 06/08/24 15:26:00 EDT, [facility], Dx: E11.9; 90 day supply, 159, [...] List Condition Confirmation Course Effective Dates Status [facility] atus Informant Atrial fibrillation with RVR Confirmed [...] Safety Implantable Status Assigning Authority Unknown Unknown [id number] Unknown 04/08/26 Unknown Unknown Active Unk vandanan Patient Care team information Care Team Personnel Name: Lashay Anderson RN Position: [facility] RN Member Role: Primary Care Nurse Name: Hazel Kilgore MD Position: [facility] Outreach Member Role: PCP Address: Address: [address] [place] [address] [place] [address] Name: Hazel James RN Position: [facility] RN Member Role: Primary Care Nurse Name: Anastasia Wright RN Position: [facility] RN Member Role: Primary Care Nurse Name: Monique Kohli RN Position: [facility] Hospital Beverage Distiller Member Role: Primary Care Nurse Name: Maxine Stewart RN Position: [facility] RN Member Role: Primary Care Nurse Name: Delma Harrell RN Position: [facility] Onco RN Member Role: Primary Care Nurse Care Team Related Persons Name: MITRA WAYNE Address: [address] [place] [address] Name: JOYCE ALCALA Address: home [address] [place] [id number]
--- OUTSIDE RECORDS SUMMARY | 2024-08-11 21:49 | XMS_ITS | Continuity of Care Document ---
Author Organization [facility] Address [address] [place] [id number]- Care Team Providers Care Sprigger Name Role Phone Magui FELIPE, Hazel Soriano Primary Care Physician [place] [facility] [place] [facility] [address] [place] [id number]- Attending Physician: Dawna Frazier MD Allergies, Adverse Reactions, Alerts No Known [...] tablet, 11 Refills, Maintenance, 01/30/24 16:21:00 EDT, [facility], 159, cm, 01/28/24 11:15:00 EDT, [...] each, 3 Refills, Maintenance, 03/30/24 9:59:00 EDT,Solution, [facility], Partial fill upon patient [...] 6 mL, 3 Refills,Maintenance, 06/08/24 15:26:00 EDT, [facility], Dx: E11.9; 90 day supply, [...] List Condition Confirmation Course Effective Dates Status [facility] atus Informant Atrial fibrillation with RVR [...] Safety Implantable Status Assigning Authority Unknown Unknown [id number] Unknown 04/08/26 Unknown Unknown Active Abdelrahman silva Patient Care team information Care Team Personnel Name: Lashay Anderson RN Position: [facility] RN Member Role: Primary Care Nurse Name: Hazel Kilgore MD Position: [facility] Outreach Member Role: PCP Address: Address: [address] [place] [address] [place] [address] Name: Hazel James RN Position: [facility] RN Member Role: Primary Care Nurse Name: Anastasia Wright RN Position: [facility] RN Member Role: Primary Care Nurse Name: Monique Kohli RN Position: [facility] Hospital Lay Out Former Member Role: Primary Care Nurse Name: Maxine Stewart RN Position: [facility] RN Member Role: Primary Care Nurse Name: Delma Harrell RN Position: [facility] Onco RN Member Role: Primary Care Nurse Care Team Related Persons Name: MITRA WAYNE Address: home [address] [place] [address] Name: JOYCE ALCALA Address: home [address] [place] [id number]
--- OUTSIDE RECORDS SUMMARY | 2024-08-11 21:50 | XMS_ITS | Continuity of Care Document ---
Author Organization [facility] Address [address] [place] [address]- Care Team Providers Care Manager Of Community Relations Name Role Phone Hazel Kilgore MD Primary Care Physician Encounter [facility] [place] Date(s): 03/28/24 - 04/27/24 [facility] [address] [place] [id number] Allergies, Adverse Reactions, Alerts No Known Allergies Medications amLODIPine 5 mg oral tablet 5 mg, 1, tablet, By Mouth, Daily, Refills 0, Maintenance, 03/12/17 11:32:25 Start Date: 03/12/17 Status: Ordered apixaban 5 mg oral tablet = 5 mg, By Mouth, 2 times a day, # 60 tablet, 0 Refills, Maintenance, 07/23/23 11:25:00 EDT, Tablet, [facility], Partial fill upon patient [...] tablet, 11 Refills, Maintenance, 01/30/24 16:21:00 EDT, [facility], 159, cm, 01/28/24 11:15:00 EDT, Height, 86.2, kg, 08/04/23 11:45:00 EDT, Dry Weight Start Date: 01/30/24 Status: Ordered ferrous sulfate 325 mg oral tablet 1 tablet = 325 mg, By Mouth, 3 times a day, 0 Refills, Maintenance, 12/29/16 15:03:37 Start Date: 12/29/16 Status: Ordered Freestyle Lite test strips Freestyle [...] Maintenance, 07/23/23 11:24:00 EDT,Route to Pharmacy Electronically, [facility], Partial fill upon patient requestif the prescription is for a schedule II opioid roshan... Start Date: 07/23/23 Status: Ordered mirabegron 50 mg oral tablet, extended release 1 tablet = 50 mg, By Mouth, Daily, do not crush or chew, # 30 tablet, 11 Refills, Maintenance, 08/11/22 12:51:00 EDT, ER Tablet, [facility], 153.7, cm, 07/11/22 10:57:00 EDT, [...] 12/29/16 15:04:06 Start Date: 12/29/16 Status: Ordered Ozempic (1 mg dose) 4 mg/3 mL subcutaneous solution = 1 mg, Subcutaneous Injection, Every week, # 5 each, 3 Refills, Maintenance, 03/30/24 9:59:00 EDT,Solution, [facility], Partial fill upon patient request if the prescription is for a schedule II opioid drug., 159, cm, 01/28/24 11... Start Date: 03/30/24 Stop Date: 07/28/24 Status: Ordered traMADol 50 mg oral tablet [...] WEEK DIRECTED, # 6 mL, 3 Refills,Maintenance, 04/15/24 8:21:00 EDT, [facility], 159, cm, 01/28/24 11:15:00 EDT, Height, 86.2, kg, 08/04/23 11:45:00 EDT, Dry Weight Start Date: 04/15/24 Status: Ordered Vitamin C By Mouth, Daily, [...] Safety Implantable Status Assigning Authority Unknown Unknown [id number] Unknown 04/08/26 Unknown Unknown Active Unk vandanan Patient Care team information Care Team Personnel Name: Lashay Anderson RN Position: [facility] RN Member Role: Primary Care Nurse Name: Hazel Kilgore MD Position: [facility] Outreach Member Role: PCP Address: Address: [address] [place] [address] [place] [id number]- Name: Hazel James RN Position: [facility] RN Member Role: Primary Care Nurse Name: Anastasia Wright RN Position: [facility] RN Member Role: Primary Care Nurse Name: Monique Kohli RN Position: [facility] Hospital Academic Coordinator Member Role: Primary Care Nurse Name: Maxine Stewart RN Position: [facility] RN Member Role: Primary Care Nurse Name: Delma Harrell RN Position: [facility] Onco RN Member Role: Primary Care Nurse Care Team Related Persons Name: MITRA WAYNE Address: [address] [place] [address] Name: JOYCE ALCALA Address: [address] [address]
--- OUTSIDE RECORDS SUMMARY | 2024-08-11 21:50 | XMS_ITS | Continuity of Care Document ---
Author Organization [facility] Address [address] [place] [address]- Care Team Providers Care Telephone Cleaner Name Role Phone Magui FELIPE, Hazel Soriano Primary Care Physician Encounter [facility] Date(s): 06/03/24 - 07/03/24 [facility] [address] [place] [id number] Allergies, Adverse Reactions, Alerts No Known [...] 0 Refills, Maintenance, 07/23/23 11:25:00 EDT, Tablet, [facility], Partial fill upon patient [...] tablet, 11 Refills, Maintenance, 01/30/24 16:21:00 EDT, [facility], 159, cm, 01/28/24 11:15:00 EDT, Height, [...] Maintenance, 07/23/23 11:24:00 EDT,Route to Pharmacy Electronically, [facility], Partial fill upon patient [...] Refills, Maintenance, 08/11/22 12:51:00 EDT, ER Tablet, [facility], 153.7, cm, 07/11/22 10:57:00 [...] each, 3 Refills, Maintenance, 03/30/24 9:59:00 EDT,Solution, [facility], Partial fill upon patient [...] 6 mL, 3 Refills,Maintenance, 06/08/24 15:26:00 EDT, [facility], Dx: E11.9; 90 day supply, 159, [...] Safety Implantable Status Assigning Authority Unknown Unknown [id number] Unknown 04/08/26 Unknown Unknown Active Abdelrahman silva Patient Care team information Care Team Personnel Name: Lashay Anderson RN Position: [facility] RN Member Role: Primary Care Nurse Name: Hazel Kilgore MD Position: [facility] Outreach Member Role: PCP Address: Address: [address] [place] [address] [place] [address] Name: Hazel James RN Position: [facility] RN Member Role: Primary Care Nurse Name: Anastasia Wright RN Position: [facility] RN Member Role: Primary Care Nurse Name: Monique Kohli RN Position: [facility] Hospital Manager Competitive Intelligence Member Role: Primary Care Nurse Name: Maxine Stewart RN Position: [facility] RN Member Role: Primary Care Nurse Name: Delma Harrell RN Position: [facility] Onco RN Member Role: Primary Care Nurse Care Team Related Persons Name: MITRA WAYNE Address: [address] [place] [address] Name: JOYCE ALCALA Address: home [address] [place] [phone]
[2024-08-11 22:09] LABS: Troponin-I High Sensitivity 4.7 ng/L (<3.5-17.0)
[2024-08-11 22:50] VITALS: BP 172/43; PULSE 69; RESP 18; TEMP 36.6; O2SAT 98
== END 2024-08-11 22:52 | disposition home or self-care (01) ==
PROVIDERS: Physician Assistant; Emergency Provider Emergency Medicine; PCP Family Medicine
DX: S50.312A Abrasion of left elbow, initial encounter (principal); R51.9 Headache, unspecified; R07.89 Other chest pain; M25.522 Pain in left elbow; M54.2 Cervicalgia; M25.512 Pain in left shoulder; M25.552 Pain in left hip; M54.6 Pain in thoracic spine; M79.642 Pain in left hand; W01.0XXA Fall on same level from slipping, tripping and stumbling without subsequent striking against object, initial encounter; Y93.01 Activity, walking, marching and hiking; Y92.096 Garden or yard of other non-institutional residence as the place of occurrence of the external cause; Y99.8 Other external cause status; Z79.899 Other long term (current) drug therapy; Z87.891 Personal history of nicotine dependence; Z79.01 Long term (current) use of anticoagulants
CPT/HCPCS: 36415; 70450; 71046; 72125; 73030; 73080; 73130; 73502; 80048; 80076; 83735; 84484; 85025; 93005; 99284

== ENCOUNTER 2024-10-27 11:08 | Outpatient (REF) | payer MEDICARE, SELFPAY | END 2024-10-27 11:09 | disposition home or self-care (01) | LOC: HO.MAMMO 11:08 | PROVIDERS: PCP Family Medicine; Visit Provider Family Medicine | DX: Z12.31 Encounter for screening mammogram for malignant neoplasm of breast (principal) | CPT/HCPCS: 77063; 77067 ==

== ENCOUNTER → 2024-10-27 11:15 | Outpatient (BNV) | payer MEDICARE, SELFPAY | PROVIDERS: PCP Family Medicine; Visit Provider Internal Medicine | DX: Z12.31 Encounter for screening mammogram for malignant neoplasm of breast (principal) | CPT/HCPCS: 77063; 77067 ==

== ENCOUNTER 2025-01-10 11:36 | Outpatient (REF) | payer OTHER, SELFPAY ==
[2025-01-10 13:14] LABS: MANUAL DIFF FLAG NO
[2025-01-10 13:15] LABS: Basophils Percent Auto 0.1 % (0-2); Eosinophils Absolute Auto 0.1 X10*3/uL (0.0-0.4); Eosinophils Percent Auto 1.6 % (0-4); Hematocrit 41.3 % (37.0-47.0); Hemoglobin 12.1 g/dl (12.0-16.0); Imm Gran Abs Auto 0.02 X10*3/uL (0.00-0.03); Imm Gran Pct Auto 0.3 % (0.0-0.4); Lymphocytes Absolute Auto 1.5 X10*3/uL (1.2-4.9); Lymphocytes Percent Auto 21.6 % (20-40); Mean Corpuscular HGB Conc 29.3 g/dl (31.0-35.0); Mean Corpuscular Hemoglobin 23.7 pg (27.0-33.0); Mean Platelet Volume 12.2 fL (9.4-12.3); Monocytes Absolute Auto 0.6 X10*3/uL (0.1-1.2); Monocytes Percent Auto 8.9 % (2-11); Neutrophils Absolute Auto 4.6 x10*3/uL (2.0-8.3); Neutrophils Percent Auto 67.5 % (45-73); Platelet Count 163 X10*3/uL (160-400); Red Cell Distribution Width 16.4 % (11.0-16.0); White Blood Count 6.8 X10*3/uL (4.8-10.8)
[2025-01-10 13:41] LABS: Estimated Average Glucose 171 mg/dL; Hemoglobin A1C 191.9359 umol/L; Hemoglobin A1c % 7.6 % (<6.0); Total Hemoglobin (HGBA1C) 3208.5862 umol/L
[2025-01-10 13:50] LABS: Alanine Aminotransferase 43 U/L (0-31); Albumin Level 3.7 g/dL (3.5-5.0); Alkaline Phosphatase 66 U/L (39-117); Anion Gap 11 (12-20); Aspartate Amino Transferase 33 U/L (5-31); Bilirubin Direct 0.2 mg/dL (0.0-0.5); Bilirubin Total 0.4 mg/dL (0.0-1.0); Blood Urea Nitrogen 26 mg/dL (9-16); Calcium 9.5 mg/dL (8.4-10.2); Carbon Dioxide 32 mmol/L (22-29); Chloride 104 mmol/L (96-108); Cholesterol 133 mg/dL (<200); Estimated Glomerular Filt Rate 44; Glucose Random 186 mg/dL (60-115); HDL Cholesterol 47 mg/dL (>40); LDL Cholesterol Calculated 70 mg/dL (<100); Potassium 4.7 mmol/L (3.3-5.1); Sodium 142 mmol/L (135-145); Total Protein 7.3 g/dL (6.5-8.0); Triglycerides 81 mg/dL (<150)
[2025-01-10 13:54] LABS: Creatinine Urine 85.67 mg/dL
[2025-01-10 14:06] LABS: TSH reflex Free T4 1.88 uIU/mL (0.32-4.0)
--- OUTSIDE RECORDS SUMMARY | 2025-01-10 14:45 | XMS_ITS | Encounter Summary ---
Author Organization [employer] Address [address] [facility] 7t [place] [address] Care Team Providers Care Cutch Cleaner Name Role Phone Hazel Kilgore MD Primary Care Provider [phone]- [phone] Tee Shay MD Unavailable [phone] Nia Borja Unavailable [phone] Encounter Details Date Type Department Care Team (Late st Contact Info) Description 03/19/2023 Orders Only [facility] CH[facility] MED & PEDS [address] [place] [address] Amaya Garcia LPN Social History Tobacco Use Types Packs/Day Years Used Date Smoking Tobacco: Never Assessed Comments Unknown Sex and Gender Information Value Date Recorded Sex Assigned at Female 09/08/2022 10:19 AM EDT Legal Sex Female 10:19 AM EDT Gender Identity Female 09/08/2022 10:19 AM EDT Sexual Orientation Straight 09/08/2022 10 :19 AM EDT documented as of this encounter Plan of Treatment Upcoming Encounters Date Type Department Care Team (Late st Contact Info) Description 01/20/2025 11:30 AM EDT Telemedicine [facility] MEDICINE [address] [place] [address] Hazel Kilgore MD [address] [place], [place] [phone] documented as of this encounter Visit Diagnoses Not on filedocumented in this encounter Care Teams Cutch Cleaner Relationship Specialty Start Date End Date Hazel Kilgore MD [address] [place], [place] [phone] PCP - General Family Medicine 11/09/18 Tee Shay MD [address] [place] [address] Nephrology 11/07/24 Nia Borja [address] [place] [address] Cardiology 11/07/24 Mary Ann Matthew [place] [facility] Endocrinology 3300 [facility] Endocrinology 10/14/24 Derrick Mullen, MADIHA [address] [place] [address] Podiatry 11/07/24 documented as of this encounter
--- OUTSIDE RECORDS SUMMARY | 2025-01-10 14:45 | XMS_ITS | Encounter Summary ---
Author Organization [facility] Address [address] [facility] 7t [place] [address] Care Team Providers Care Field Sales Specialist Name Role Phone Hazel Kilgore MD Primary Care Provider Tee Shay MD Unavailable [phone] Nia Borja Unavailable [phone] Encounter Details Date Type Department Care Team (Late st Contact Info) Description 10/30/2022 Orders Only [facility] [address] [place] [id number] Renata Lerner LPN Social History Tobacco Use Types Packs/Day [...] Info) Description 01/20/2025 11:30 AM EDT Telemedicine [facility] MEDICINE [address] [place] [address] Hazel Kilgore MD [address] [place], [place] [phone] documented as of this encounter Visit Diagnoses Not on filedocumented in this encounter Care Teams Field Sales Specialist Relationship Specialty Start Date End Date Hazel Kilgore MD [address] [place] [phone] PCP - General Family Medicine 11/09/18 Tee Shay MD [address] [place] [address] Nephrology 11/07/24 Nia Borja [address] [place] [address] Cardiology 11/07/24 Mary Ann Matthew [place] [facility] Endocrinology 3300 [facility] Endocrinology 10/14/24 Derrick Mullen, DPVannesa 175 [place] [address] Podiatry 11/07/24 documented as of this encounter
--- OUTSIDE RECORDS SUMMARY | 2025-01-10 14:45 | XMS_ITS | Encounter Summary ---
Author Organization [facility] Address [address] [address] Phone Care Team Providers Care Talend Developer Name Role Phone Hazel Kilgore MD Primary Care Provider Gabriel hayden Encounter Details Date Type Department Care Team (Late st Contact Info) Description 12/19/2024 4:15 PM EST Telemedicine [facility] [address] [facility] [place] [address] Tee Shay MD [address] [address] Social History Tobacco Use Types Packs/Day Years Used Date Smoking Tobacco: Former Cigarettes Q uit: 11/09/1991 Comments:Smoking History Inf o:Every day Alcohol Use Standard Drinks/Week Comments No 0 (1 standard drink = 0.6 oz pur e alcohol) Comments Unknown Sex and Gender Information Value Date Recorded Sex Assigned at Not on file Legal Sex Female 5:00 PM EST Gender Identity Not on file Sexual Orientation Not on file documented as of this encounter Last Filed Vital Signs Vital Sign Reading Time Taken Comments Blood Pressure - - Pulse - - Temperature - - Respiratory Rate - - Oxygen Saturation - - Inhaled Oxygen Concentration - - Weight 80.7 kg (178 lb) 12/19/2024 11:37 AM EST Height - - Body Mass Index 32.56 08/31/2020 12:00 PM EDT documented in this encounter Plan of Treatment Not on file documented as of this encounter Visit Diagnoses Not on filedocumented in this encounter Care Teams Talend Developer Relationship Specialty Start Date End Date Hazel Kilgore MD [address] [place] [address] PCP - General 11/19/20 documented as of this encounter
--- OUTSIDE RECORDS SUMMARY | 2025-01-10 14:45 | XMS_ITS | Encounter Summary ---
Author Organization [employer] Address [address] [facility] 7t [place] [address] Care Team Providers Care Pulmonologist Intensivist Name Role Phone Hazel Kilgore MD Primary Care Provider [phone] Tee Shay MD Unavailable [phone] Nia Borja Unavailable [phone] Encounter Details Date Type Department Care Team (Late st Contact Info) Description 01/21/2023 Orders Only [facility] CHC MED & PEDS [address] [place] [address] Amaya Garcia LPN Social History Tobacco Use [...] Info) Description 01/20/2025 11:30 AM EDT Telemedicine [facility] MEDICINE [address] [place] [address] Hazel Kilgore MD [address] [place], [place] [phone] documented as of this encounter Visit Diagnoses Not on filedocumented in this encounter Care Teams Pulmonologist Intensivist Relationship Specialty Start Date End Date Hazel Kilgore MD [address] [place], [place] [phone] PCP - General Family Medicine 11/09/18 Tee Shay MD [address] [place] [address] Nephrology 11/07/24 Nia Borja [address] [place] [address] Cardiology 11/07/24 Mary Ann Matthew [place] [facility] Endocrinology 3300 [facility] Endocrinology 10/14/24 Derrick Mullen, MADIHA [address] [place] [address] Podiatry 11/07/24 documented as of this encounter
--- OUTSIDE RECORDS SUMMARY | 2025-01-10 14:45 | XMS_ITS | Encounter Summary ---
Author Organization [employer] Address 75 [facility] 7t [place] [address] Care Team Providers Care Video Game Technician Name Role Phone Hazel Kilgore MD Primary Care Provider [phone] Tee Shay MD Unavailable [phone] Nia Borja Unavailable [phone] Encounter Details Date Type Department Care Team (Late st Contact Info) Description 07/15/2023 Orders Only [facility] CHC MED & PEDS [address] [place], [place] [phone] Amaya Garcia LPN Social History Tobacco Use Types Packs/Day Years Used Date Smoking Tobacco: Never Passive Smoke Exposure: Never Smokeless Tobacco: Never Depression Answer Date Recorded Patient Health Questionnaire-9 Score 0 07/03/2023 Depression Answer Date Recorded Patient Health Questionnaire-2 Score 0 07/03/2023 Comments Unknown Sex and Gender Information Value Date Recorded Sex Assigned at Female 09/08/2022 10:19 AM EDT Legal Sex Female 10:19 AM EDT Gender Identity Female 09/08/2022 10:19 AM EDT Sexual Orientation Straight 09/08/2022 10 :19 AM EDT documented as of this encounter Plan of Treatment Upcoming Encounters Date Type Department Care Team (Late st Contact Info) Description 01/20/2025 11:30 AM EDT Telemedicine [facility] MEDICINE [address] [place], [place] [phone] Hazel Kilgore MD [address] [place], [place] [phone] documented as of this encounter Visit Diagnoses Not on filedocumented in this encounter Additional Health Concerns Assessment Noted Time PHQ-9 Depression Total Score: 0 07/03/20 23 9:07 AM EDT documented as of this encounter Care Teams Video Game Technician Relationship Specialty Start Date End Date Hazel Kilgore MD [address] [place] [address] PCP - General Family Medicine 11/09/18 Tee Shay MD [address] [place] [address] Nephrology 11/07/24 Nia Borja 3300 [facility] [address] [place] [address] Cardiology 11/07/24 Mary Ann Matthew [place] [facility] Endocrinology 3300 [facility] Endocrinology 10/14/24 Derrick Mullen DPM 175 [place] [address] Podiatry 11/07/24 documented as of this encounter
--- OUTSIDE RECORDS SUMMARY | 2025-01-10 14:45 | XMS_ITS | Encounter Summary ---
Author Organization [employer] Address [address] [facility] 7t [place] [address] Care Team Providers Care Drop Clipper Name Role Phone Hazel Kilgore MD Primary Care Provider [phone] Tee Shay MD Unavailable [phone] Nia Borja Unavailable [phone] Encounter Details Date Type Department Care Team (Late st Contact Info) Description 04/10/2023 Orders Only [facility] CHC MED & PEDS [address] [place] [address] Amaya Garcia LPN Social History Tobacco Use [...] Info) Description 01/20/2025 11:30 AM EDT Telemedicine [facility] MEDICINE [address] [place] [address] Hazel Kilgore MD [address] [place], [place] [phone] documented as of this encounter Visit Diagnoses Not on filedocumented in this encounter Care Teams Drop Clipper Relationship Specialty Start Date End Date Hazel Kilgore MD [address] [place], [place] [phone] PCP - General Family Medicine 11/09/18 Tee Shay MD [address] [place] [address] Nephrology 11/07/24 Nia Borja [address] [place] [address] Cardiology 11/07/24 Mary Ann Matthew [place] [facility] Endocrinology 3300 [facility] Endocrinology 10/14/24 Derrick Mullen, MADIHA [address] [place] [address] Podiatry 11/07/24 documented as of this encounter
--- OUTSIDE RECORDS SUMMARY | 2025-01-10 14:45 | XMS_ITS | Encounter Summary ---
Author Organization [facility] Address [address] [facility] 7t [place] [address] Care Team Providers Care Taxation Economist Name Role Phone Hazel Kilgore MD Primary Care Provider [phone] Tee Shay MD Unavailable Nia Borja Unavailable [phone] Encounter Details Date Type Department Care Team (Late st Contact Info) Description 12/26/2022 Abstract [facility] MEDICINE [address] [place] [address] [phone] Hazel Kilgore MD [address] [place] [address] [phone] Social History Tobacco Use Types Packs/Day Years [...] Description 01/20/2025 11:30 AM EDT Telemedicine [facility] MEDICINE [address] [place] [phone] Hazel Kilgore MD [address] [place] [address] [phone] documented as of this encounter Procedures Procedure Name Priority Date/Time Associated Diagnosis Comments MAMMOGRAPHY Routine 09/18/2022 COLONOSCOPY Routine 06/19/2020 documented in this encounter Results * Hm Mammography (09/18/2022) HM Mammogram BIRADS 1 Anatomical Region Laterality Modality Other Historical Provider HEALTH MAINTENANCE Final Result * Hm Colonoscopy (06/19/2020) Colonoscopy normal Historical Provider HEALTH MAINTENANCE Final Result documented in this encounter Visit Diagnoses Not on filedocumented in this encounter Care Teams Taxation Economist Relationship Specialty Start Date End Date Hazel Kilgore MD [address] [place] [address] PCP - General Family Medicine 11/09/18 Tee Shay MD [address] [facility] [address] [place] [address] Nephrology 11/07/24 Nia Borja 3300 [facility] [address] [place] [address] Cardiology 11/07/24 Mary Ann Matthew [place] [facility] Endocrinology 3300 [facility] Endocrinology 10/14/24 Derrick Mullen, DPM 175 [place] [address] Podiatry 11/07/24 documented as of this encounter
--- OUTSIDE RECORDS SUMMARY | 2025-01-10 14:45 | XMS_ITS | Encounter Summary ---
Author Organization [facility] Address [address] [facility] 7t [place] [address] Care Team Providers Care Patient Support Partner Name Role Phone Hazel Kilgore MD Primary Care Provider [phone]- [phone] Tee Shay MD Unavailable [phone] JonhNia Unavailable [phone] Encounter Details Date Type Department Care Team (Latest Contact Info) Description 07/28/2019 Abstract [facility] CONVERSIONS Dental, Provider, DDS Social History Tobacco Use Types Packs/Day Years [...] Info) Description 01/20/2025 11:30 AM EDT Telemedicine [facility] MEDICINE [address] [place] [address] Hazel Kilgore MD [address] [place] [address] documented as of this encounter Visit Diagnoses Not on filedocumented in this encounter Care Teams Patient Support Partner Relationship Specialty Start Date End Date Hazel Kilgore MD [address] [place] [address] PCP - General Family Medicine 11/09/18 Tee Shay MD [address] [place] [address] Nephrology 11/07/24 Nia Borja 3300 [facility] [address] [place] [address] Cardiology 11/07/24 Mary Ann Matthew [place] [facility] Endocrinology [address] [place] [address] Endocrinology 10/14/24 Derrick Mullen, DPVannesa 175 [place] [address] Podiatry 11/07/24 documented as of this encounter
--- OUTSIDE RECORDS SUMMARY | 2025-01-10 14:46 | XMS_ITS | Encounter Summary ---
Author Organization [employer] Address [address] [facility] [address] 7[address] [place] [address] Care Team Providers Care Wellfield Technician Name Role Phone Magui, Hazel FELIPE Primary Care Provider [phone] Tee Shay MD Unavailable [phone] Nia Borja Unavailable [phone] Reason for Visit * Reason Comments Med Refill Encounter Details Date Type Department Care Team (Late st Contact Info) Description 08/13/2023 Refill [facility] CHC MED & PEDS [address] [place], [place] [phone] Mireya Vasquez MD [address] [place] [address] Social History Tobacco Use Types Packs/Day Years Used Date Smoking Tobacco: Never Passive Smoke Exposure: Never Smokeless Tobacco: Never Alcohol Use Standard Drinks/Week Comments Never 0 (1 standard drink = 0.6 oz pur e alcohol) Depression Answer Date Recorded Patient Health Questionnaire-9 Score 0 07/03/2023 Housing Stability Answer Date Recorded What is your housing situation today? I have luan yoon 08/17/[address] you li ve. Do you have problems with any of the following? None of the above 08/17/2023 Food Insecurity Answer Date Recorded Within the past 12 months, y ou worried that your food would run out before you got money to buy more: Never True 08/17/2023 Within the past 12 months,th e food you bought just didn't last and you didn't have enough money to get more: Never True 07/2023 Transportation Answer Date Recorded In the past 12 months, has l ack of transportation kept you from medical appts, meetings, work or from getting things needed for daily living? No 08/17/2023 Utilities Answer Date Recorded In the past 12 months, has t he electric, gas, oil or water company threatened to shut off services in your home? No 08/17/2023 Depression Answer Date Recorded Patient Health Questionnaire-2 [...] Info) Description 01/20/2025 11:30 AM EDT Telemedicine [facility] MEDICINE [address] [place] [address] Hazel Kilgore MD [address] [place] [address] documented as of this encounter Visit Diagnoses Not on filedocumented in this encounter Additional Health Concerns Assessment Noted Time PHQ-9 Depression Total Score: 0 07/03/20 23 9:07 AM EDT documented as of this encounter Care Teams Wellfield Technician Relationship Specialty Start Date End Date Hazel Kilgore MD [address] [place] [address] PCP - General Family Medicine 11/09/18 Tee Shay MD [address] [facility] 200 [place] [address] Nephrology 11/07/24 Nia Borja 3300 [facility] [address] [place] [place] [address] Cardiology 11/07/24 Mary Ann Matthew [place] [facility] Endocrinology 3300 [facility] Endocrinology 10/14/24 Derrick Mullen, MADIHA [address] [place] [address] Podiatry 11/07/24 documented as of this encounter
--- OUTSIDE RECORDS SUMMARY | 2025-01-10 14:46 | XMS_ITS | Encounter Summary ---
Author Organization [employer] Address [address] [facility] [address] 7[address] [place] [address] Care Team Providers Care Automatic Paint Sprayer Operator Name Role Phone Hazel Kilgore MD Primary Care Provider [phone] Tee Shay MD Unavailable [phone] Nia Borja Unavailable [phone] Reason for Visit * Reason Comments Med Refill Encounter Details Date Type Department Care Team ([facility] st Contact Info) Description 01/08/2025 Refill [facility] MED & PEDS [address] [place], [place] [phone] Hazel Kilgore MD [address] [place] [address] Primary hypertension Social History Tobacco Use Types Packs/Day Years Used Date Smoking Tobacco: Never Passive Smoke Exposure: Never Smokeless Tobacco: Never Alcohol Use Standard Drinks/Week Comments Never 0 (1 standard drink = 0.6 oz pur e alcohol) Depression Answer Date Recorded Patient Health Questionnaire-9 Score 0 11/21/2024 Patient Health Questionnaire-9 Score 0 11/21/2024 Last PHQ-9: Questionnaire Data Not on file 0 11/21/2024 Housing Stability Answer Date Recorded What is your housing situation today? I have luan yoon 09/03/[address] you li ve. Do you have problems with any of the following? None of the above 09/03/2023 Food Insecurity Answer Date Recorded Within the past 12 months, y ou worried that your food would run out before you got money to buy more: Never True 09/03/2023 Within the past 12 months,th e food you bought just didn't last and you didn't have enough money to get more: Never True Transportation Answer Date Recorded In the past 12 months, has l ack of transportation kept you from medical appts, meetings, work or from getting things needed for daily living? No 09/03/2023 Utilities Answer Date Recorded In the past 12 months, has t he electric, gas, oil or water company threatened to shut off services in your home? No 09/03/2023 Depression Answer Date Recorded Patient Health Questionnaire-2 Score 0 11/21/2024 Comments Unknown Sex and Gender Information Value Date Recorded Sex Assigned at Female 09/08/2022 10:19 AM EDT Legal Sex Female 10:19 AM EDT Gender Identity Female 09/08/2022 10:19 AM EDT Sexual Orientation Straight 09/08/2022 10 :19 AM EDT documented as of this encounter Plan of Treatment Upcoming Encounters Date Type Department Care Team (Late st Contact Info) Description 01/20/2025 11:30 AM EDT Telemedicine [facility] MEDICINE [address] [place] [address] Hazel Kilgore MD [address] [place] [address] documented as of this encounter Visit Diagnoses Diagnosis Primary hypertension Unspecified essential hypertension documented in this encounter Additional Health Concerns Assessment Noted Time PHQ-9 Depression Total Score: 0 11/21/19 25 10:37 AM EST documented as of this encounter Care Teams Automatic Paint Sprayer Operator Relationship Specialty Start Date End Date Hazel Kilgore MD [address] [place] [address] PCP - General Family Medicine 11/09/18 Tee Shay MD [address] [place] [phone] Nephrology 11/07/24 Nia Borja [address] [facility] [address]LO[address] [place] [address] Cardiology 11/07/24 Mary Ann Matthew MA [facility] Endocrinology 3300 [facility] Endocrinology 10/14/24 Derrick Mullen, MADIHA [address] [place] [address] Podiatry 11/07/24 documented as of this encounter
--- OUTSIDE RECORDS SUMMARY | 2025-01-10 14:46 | XMS_ITS | Encounter Summary ---
Author Organization [employer] Address [address] [facility] 7t [place] [address] Care Team Providers Care Assistant Art Director Name Role Phone Hazel Kilgore MD Primary Care Provider [phone] Tee Shay MD Unavailable [phone] Nia Borja Unavailable [phone] Encounter Details Date Type Department Care Team (Late st Contact Info) Description 08/04/2023 Orders Only [facility] CH[facility] MED & PEDS [address] [place] [address] Renata Lerner LPN Social History Tobacco Use [...] 01/20/2025 11:30 AM EDT Telemedicine [facility] MEDICINE [address] [place], [place] [phone] Hazel Kilgore MD [address] [place], [place] [phone] documented as of this encounter Visit Diagnoses Not on filedocumented in this encounter Additional Health Concerns Assessment Noted Time PHQ-9 Depression Total Score: 0 07/03/20 23 9:07 AM EDT documented as of this encounter Care Teams Assistant Art Director Relationship Specialty Start Date End Date Hazel Kilgore MD [address] [place] [address] PCP - General Family Medicine 11/09/18 Tee Shay MD [address] [place] [address] Nephrology 11/07/24 Nia Borja [address] [place] [address] [address] [place] [address] Cardiology 11/07/24 Mary Ann Matthwe MA [facility] Endocrinology 3300 [facility] Endocrinology 10/14/24 Derrick Mullen, DPVannesa [address] [place] [address] Podiatry 11/07/24 documented as of this encounter
--- OUTSIDE RECORDS SUMMARY | 2025-01-10 14:46 | XMS_ITS | Encounter Summary ---
Author Organization [facility] Address [address] [facility] [address] [place] [address] Phone Care Team Providers Care Diesel Motor Mechanic Name Role Phone [place], Hazel Soriano MD Primary Care Provider U navailable Reason for Visit * Reason Comments Med Refill Encounter Details Date Type Department Care Team (Late st Contact Info) Description 04/24/2022 Refill [facility] [address] [place] [address] Tee Shay MD [address] [facility] [address] [place] [address] Social History Tobacco Use Types Packs/Day [...] on file documented as of this encounter Miscellaneous Notes * Telephone Encounter - Tee Shay MD - 04/25/2022 1:12 AM EDT Needs f/u in 5-6 weeks with me 1. tell them I sent rx but no refils 2. They must see me or have a telehealth visit with me before I can renew it again 3. when u call them be sure to make the f/u appt at the same time u inform them th rx was sent by me documented in this encounter Plan of Treatment Not on file documented as of this encounter Visit Diagnoses Not on filedocumented in this encounter Care Teams Diesel Motor Mechanic Relationship Specialty Start Date End Date Hazel Kilgore MD [address] [place] [address] PCP - General 11/19/20 documented as of this encounter
--- OUTSIDE RECORDS SUMMARY | 2025-01-10 14:46 | XMS_ITS | Clinical Summary ---
Author Organization [facility] Address [address] [address] Phone Care Team Providers Care Sample Collector Name Role Phone Hazel Kilgore MD Primary Care Provider U navailable Allergies No known active allergies Medications aspirin (ST ANKITA) 81 MG EC tablet Take 1 tablet by mouth 1 (one) time each day Active fluticasone (Flovent Diskus) 50 MCG/BLIST diskus inhaler Activ e insulin aspart (NovoLOG) 100 UNIT/ML injection Active insulin glargine (Lantus) 100 UNIT/ML injection Active rosuvastatin (CRESTOR) 20 MG tablet Take 1 tablet by mouth 1 (one) time each day Active tiotropium (Spiriva HandiHaler) 18 MCG per inhalation capsule Active Ventolin HFA 108 (90 Base) MCG/ACT inhaler INHALE 2 PUFFS BY MOUTH EVERY 4 TO 6 HOURS NEEDED 04/12/20 21 Active ascorbic acid (VITAMIN C) 500 MG tablet TAKE 1 TABLET BY MOUTH TWICE DAILY IN THE MORNING AND IN THE EVENING 04/09/20 21 Active docusate sodium (COLACE) 100 MG capsule TAKE 1 CAPSULE BY MOUTH TWICE DAILY IN THE MORNING AND AT BEDTIME 04/09/20 21 Active FeroSul 325 (65 Fe) MG tablet TAKE 1 TABLET BY MOUTH THREE TIMES DAILY IN THE MORNING, AT NOON, AND IN THE EVENING 04/09/20 21 Active Flovent HFA 110 MCG/ACT inhaler INHALE 1 PUFF TWICE DAILY 04/09/20 21 Active gabapentin (NEURONTIN) 600 MG tablet TAKE 1 TABLET BY MOUTH THREE TIMES DAILY IN THE MORNING, EVENING, AND BEDTIME 04/09/20 21 Active isosorbide mononitrate (IMDUR) 30 MG 24 hr tablet Take 30 mg by mouth 04/09/20 21 Active omeprazole (PriLOSEC) [address] capsule TAKE 1 CAPSULE BY MOUTH EVERY MORNING BEFORE BREAKFAST 02/06/20 21 Active Calcium Carbonate-Vitam in D3 600-400 MG-UNIT tablet 07/30/20 21 Active Trulicity 0.75 MG/0.5ML solution pen-injector INJECT ONE PEN (=0.75MG) SUBCUTANEOUSLY ONCE A WEEK DIRECTED 07/24/20 21 Active Dapagliflozin Propanediol (FARXIGA PO) Take by mouth Act jasmeet apixaban (Eliquis) 5 MG tablet Take 5 mg by mouth in the morning and 5 mg in the evening. Active metoprolol tartrate 25 MG tablet Take 25 mg by mouth in the morning and 25 mg in the evening. Active traMADol (ULTRAM) 50 MG tablet Take 50 mg by mouth every 6 (six) hours if needed for moderate pain Active LORazepam (ATIVAN) 1 MG tablet Take 1 mg by mouth every 6 (six) hours if needed for anxiety Active doxazosin (CARDURA) 4 MG tablet TAKE 1 AND 1/2 TABLETS BY MOUTH AT BEDTIME 45 tablet 5 09/05/20 24 Active furosemide (LASIX) 40 MG tabletIndicatio ns:Stage 3b chronic kidney disease (HCC),Renal disorder due to type 2 diabetes mellitus <Diabetic nephropathy> (HCC) TAKE 1 TABLET BY MOUTH EVERY MORNING 90 tablet 12/07/19 25 Active amLODIPine (Norvasc) 5 MG tablet Take 1 tablet (5 mg total) by mouth in the morning and 1 tablet (5 mg total) in the evening. 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 Chronic kidney disease stage 3 04/22/2021 Hyperkalemia 04/22/2021 Renal disorder due to type 2 diabetes mellitus 0 04/22/2021 Stage 3b chronic kidney disease 04/22/2021 Renal osteodystrophy 04/22/2021 Chronic obstructive pulmonary disease 07/08/2012 Type 2 diabetes mellitus 03/26/2012 Hyperlipidemia 03/26/2012 Encounters Date Type Department Care Team Description 12/19/2024 4:15 PM EST Telemedicine [facility] [address] [place] [address] Tee Shay MD 12/07/2024 Refill [facility] [address] [place] [address] Tee Shay MD Stage 3b chronic kidney disease (HCC); Renal disorder due to type 2 diabetes mellitus <Diabetic nephropathy> (HCC) from Last 3 Months Immunizations Name Administration Dates Next Due Hepatitis B 09/22/2014,10/19/2009,09/17/2009 Influenza Split 07/20/2013,07/08/2012 Influenza Split High Dose Pr eservative Free IM 11/21/2024,01/19/2020,08/05/2018,07/27 Influenza, Quadrivalent, Pre servative Free 09/19/2021,09/12/2015 Influenza, Quadrivalent, Wit h Preservative 08/27/2016 MMR 09/17/2009 Pneumococcal Polysaccharide 05/04/2014 Family History Medical History Relation Comments Diabetes Child Relation Status Comments Child Father Mother Social History Tobacco Use Types Packs/Day Years [...] on file Sexual Orientation Not on file Last Filed Vital Signs Vital Sign Reading Time Taken Comments Blood Pressure 102/60 05/23/2024 2:01 PM EDT Pulse 68 05/23/2024 2:01 PM EDT Temperature - - Respiratory Rate - - Oxygen Saturation 96% 05/23/2024 2:01 PM EDT Inhaled Oxygen Concentration - - Weight 80.7 kg (178 lb) 12/19/2024 11:37 AM EST Height 157.5 cm (5' 2 ) 08/31/2020 12:00 PM EDT Body Mass Index 32.56 08/31/2020 12:00 PM EDT Plan of Treatment Health Maintenance Due Date Last Done Comments Pneumococcal Vaccine: 65+ Years (2 of 2 - PCV) 05/04/2015 05/04/2014 Diabetes: Ophthalmology Exam 12/10/2020 Diabetes: Pedal Pulse Checked 12/10/2020 Diabetes: Sensory Foot Exam 12/10/2020 Diabetes: Visual Foot Exam 12/10/2020 Diabetes: Hemoglobin A1C 02/19/2025 025, 02/26/2024, 01/17/2021 Hepatitis B Vaccine Aged Out 09/22/2014, 10/19/2009, 09/17/2009 No longer eligible based on patient's age to complete this topic Influenza Vaccine Completed 11/21/2024, , 01/19/2020, Additional history exists Insurance [facility] ([id number]) [facility] ([id number]) Care Teams Sample Collector Relationship Specialty Start Date End Date [place], Hazel Soriano MD [address] [place] [address] PCP - General 11/19/20
--- OUTSIDE RECORDS SUMMARY | 2025-01-10 14:46 | XMS_ITS | Encounter Summary ---
Author Organization [employer] Address [address] [facility] [address] [place] [address] Care Team Providers Care Utility Pipe Layer Name Role Phone Hazel Kilgore MD Primary Care Provider [phone] Tee Shay MD Unavailable [phone] Nia Borja Unavailable Encounter Details Date Type Department Care Team (Latest Contact Info) Description 01/10/2025 Travel Social History Tobacco Use Types Packs/Day Years [...] Info) Description 01/20/2025 11:30 AM EDT Telemedicine [facility] MEDICINE 230 [place] [address] Hazel Kilgore MD [address] [place] [address] documented as of this encounter Visit Diagnoses Not on filedocumented in this encounter Additional Health Concerns Assessment Noted Time PHQ-9 Depression Total Score: 0 11/21/19 25 10:37 AM EST documented as of this encounter Care Teams Utility Pipe Layer Relationship Specialty Start Date End Date Hazel Kilgore MD [address] [place] [address] PCP - General Family Medicine 11/09/18 Tee Shay MD [address] [place] [address] Nephrology 11/07/24 Nia Borja [address] [facility] [address] [place] [address] Cardiology 11/07/24 Mary Ann Matthew MA [facility] Endocrinology 3300 [facility] Endocrinology 10/14/24 Derrick Mullen, DPM 175 [place] [address] Podiatry 11/07/24 documented as of this encounter
--- OUTSIDE RECORDS SUMMARY | 2025-01-10 14:46 | XMS_ITS | Clinical Summary ---
Author Organization [address] [facility] Address [address] [place] [address] Phone Care Team Providers Care Inventory Control Specialist Name Role Phone Hazel Kilgore MD Primary Care Provider [phone] Allergies No known active allergies Medications ammonium lactate (LAC-HYDRIN) 12 % lotion APPLY TO SUNS OF FEET ONCE DAILY. AT NIGHT usar con medias 06/02/20 24 Active amLODIPine (NORVASC) 5 mg tablet Take 0.5 Tablets by mouth. 03/12/20 17 Active apixaban (Eliquis) 5 mg tablet Take 5 mg by mouth. 07/23/20 23 Active ascorbic acid (Vitamin C) 500 mg chewable tablet TAKE 1 TABLET BY MOUTH TWICE DAILY IN THE MORNING AND AT BEDTIME 04/09/20 21 Active aspirin 81 mg EC tablet TAKE 1 TABLET BY MOUTH AT BEDTIME 07/15/20 23 Active calcium carbonate 1,500 mg (600 mg elemental calcium) tablet Take 1 Tablet by mouth. Active clobetasoL (TEMOVATE) 0.05 % cream APPLY TOPICALLY TO AFFECTED AREA(S) EVERY DAY (USE SPARINGLY) 04/12/20 21 Active glucose 4 gram chewable tablet Chew 4 tablets if blood sugar is <70 and repeat after 15 minutes if needed 06/03/20 21 Active dulaglutide (Trulicity) 0.75 mg/0.5 mL pen injector injection INJECT ONE PEN (=0.75MG) SUBCUTANEOUSLY ONCE A WEEK DIRECTED 07/24/20 21 Active dulaglutide (Trulicity) 1.5 mg/0.5 mL pen injector injection INJECT ONE PEN (=1.5MG) SUBCUTANEOUSLY ONCE A WEEK DIRECTED 05/26/20 23 Active ferrous sulfate 325 mg (65 mg elemental iron) tablet TAKE 1 TABLET BY MOUTH THREE TIMES DAILY IN THE MORNING, AT NOON, AND AT BEDTIME 12/29/19 17 Active fluticasone HFA (FLOVENT HFA) 110 mcg/actuation inhaler INHALE 1 PUFF BY MOUTH TWICE DAILY RINSE MOUTH AFTER USING. 04/09/20 21 Active fluticasone propionate (Flovent Diskus) 50 mcg/actuation diskus inhaler Activ e gabapentin (NEURONTIN) 600 mg tablet TAKE 1 TABLET BY MOUTH THREE TIMES DAILY IN THE MORNING, EVENING, AND BEDTIME 07/01/20 16 Active insulin glargine (Lantus Solostar U-100 Insulin) 100 unit/mL (3 mL) injection pen INJECT 30 UNITS SUBCUTANEOUSLY EVERY EVENING DIRECTED 07/01/20 16 Active isosorbide mononitrate (IMDUR) 30 mg 24 hr tablet Take 1 Tablet by mouth. 04/09/20 21 Active lisinopriL (PRINIVIL,ZESTR IL) 30 mg tablet Take 1 Tablet by mouth. 07/01/20 16 Active LORazepam (ATIVAN) 0.5 mg tablet TAKE 1 TABLET BY MOUTH ONCE DAILY NEEDED 04/09/20 21 Active metFORMIN (FORTAMET) 500 mg 24 hr tablet Take 1 Tablet by mouth. Active metoprolol succinate (TOPROL-XL) 25 mg 24 hr tablet Take 1 Tablet by mouth. 07/23/20 23 Active mirabegron (MYRBETRIQ) 50 mg tablet extended release 24 hr 24 hr tablet Take 50 mg by mouth. 04/09/20 21 Active omeprazole (PriLOSEC) [address] capsule TAKE 1 CAPSULE BY MOUTH EVERY MORNING BEFORE BREAKFAST 02/06/20 21 Active prednisoLONE acetate (PRED FORTE) 1 % ophthalmic suspension PLEASE SEE ATTACHED FOR DETAILED DIRECTIONS 07/15/20 23 Active rosuvastatin (CRESTOR) 20 mg tablet Take 1 Tablet by mouth. 07/01/20 16 Active senna (SENOKOT) 8.6 mg tablet TAKE 2 TABLETS BY MOUTH EVERY DAY AT BEDTIME 04/09/20 21 Active traMADoL (ULTRAM) 50 mg tablet Take 1 Tablet by mouth. 04/28/20 22 Active insulin glargine (LANTUS) 100 unit/mL injection Active CALCIUM-VITAMIN D3-MAGNESIUM ORAL TAKE 1 TABLET BY MOUTH TWICE DAILY IN THE MORNING AND AT BEDTIME 07/30/20 21 Active flash glucose sensor (FREESTYLE MELVINA 2 SENSOR MISC) USE TO TEST BLOOD SUGAR 7 TIMES DAILY. CHANGE EVERY 14 DAYS 07/21/20 Active blood sugar diagnostic (FreeStyle Lite Strips) test strip TEST BLOOD SUGAR SIX TIMES DAILY 04/10/20 Active blood sugar diagnostic (FreeStyle Lite Strips) test strip TEST BLOOD SUGAR SIX TIMES DAILY 04/09/20 Active pen needle, diabetic 31 gauge x 5/16 needle USE DIRECTED FOUR TIMES DAILY 08/05/20 Active lancets (TRUEplus Lancets) 33 gauge misc TEST BLOOD SUGAR SIX TIMES DAILY 09/18/20 23 Active pen needle, diabetic 31 gauge x 5/16 needle USE FOUR TIMES DAILY 04/09/20 Active INSULIN ASPART, NIACINAMIDE, SUBQ Active Encounters Date Type Department Care Team Description 11/16/2024 2:15 PM EST Office Visit Orthopedic Surgery [facility] [address] [phone] Derrick Mullen DPM 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); Localized swelling of both lower legs; Arthritis of both feet; PVD (peripheral vascular disease) (CMS/HCC); Pain in toes of both feet; Dermatophytosis, nail from Last 3 Months Social History Tobacco Use Types Packs/Day Years Used Date Smoking Tobacco: Never Assessed Comments Unknown Sex and Gender Information Value Date Recorded Sex Assigned at Not on file Legal Sex Female 4:50 AM EST Gender Identity Not on file Sexual Orientation Not on file Last Filed Vital Signs Vital Sign Reading Time Taken Comments Blood Pressure - - Pulse - - Temperature - - Respiratory Rate - - Oxygen Saturation - - Inhaled Oxygen Concentration - - Weight 85.7 kg (189 lb) 11/16/2024 2:36 PM EST Height 157.5 cm (5' 2.01 ) 09/13/2024 1:58 PM ES T Body Mass Index 34.56 09/13/2024 1:58 PM EST Plan of Treatment Upcoming Encounters Date Type Department Care Team (Late st Contact Info) Description 02/14/2025 1:30 PM EDT Office Visit Orthopedic Surgery [facility] [address] [phone] Derrick Mullen, MADIHA [address] [address] Health Maintenance Due Date Last Done Comments Diabetes: Annual Foot Exam 1955 Diabetes: Annual Retina Eye Exam 1955 COVID-19 Vaccine ( season) 2024 12/03/2023, 09/19/2021, 01/17/2021, Additional history exists Influenza Vaccine (#1) 2024 , 08/25/2022, 09/19/2021, Additional history exists Depression Screening 09/12/2024 07/03/2023 Diabetes: Annual Urine Albumin-Creatinine Ratio (uACR) 09/12/2024 08/13/2023 Falls Risk Assessment 09/12/2024 Osteoporosis Screening (Bone Density Screening) 09/12/2024 Social Influencers of Health Screening 09/12/2024 Diabetes: Blood Sugar Control Test (HGBA1C) 01/18/2025 07/21/2024, 07/01/2024, 01/17/2021 Diabetes: Annual GFR (Glomerular Filtration Rate) 08/11/2025 08/11/2024, 07/21/2024, 08/13/2023 Hypertension/CHF/CAD Annual BMP Blood Test 08/11/2025 08/11/2024, 07/21/2024, 08/13/2023 Cholesterol Screening (Lipid Panel) 07/21/2029 07/21/2024, 08/13/2023 DTaP,Tdap,and Td Vaccines (5 - Td or Tdap) 08/25/2032 08/25/2022, 03/09/2019, 07/08/2012, Additional history exists MMR Vaccines Aged Out 09/17/2009 No longer eligi ble based on patient's age to complete this topic Hepatitis B Vaccines Completed 09/22/2014, 10/19/2009, 09/17/2009 Pneumococcal Vaccine: 50+ Years Completed 09/12/2015, 05/04/2014, 01/02/2012, Additional history exists Zoster Vaccines Completed 03/28/2022, 01/07, 09/22/2014 RSV Immunization Patients 60+ Years Old Completed 07/21/2024 HIB Vaccines Aged Out No longer eligi ble based on patient's age to complete this topic HPV Vaccines Aged Out No longer eligi ble based on patient's age to complete this topic Hepatitis A Vaccines Aged Out No long er eligible based on patient's age to complete this topic IPV Vaccines Aged Out No longer eligi ble based on patient's age to complete this topic Meningococcal ACWY Vaccine Aged Out N o longer eligible based on patient's age to complete this topic Meningococcal B Vacine Aged Out No lo nger eligible based on patient's age to complete this topic RSV Immunization Patients Under 20 months Aged Out No longer eligible based on patient's age to complete this topic Varicella Vaccines Aged Out No longer eligible based on patient's age to complete this topic Procedures Procedure Name Priority Date/Time Associated Diagnosis Comments URINE ALBUMIN CREATININE RATIO Routine 08/13/2023 ANNUAL BMP BLOOD TEST Routine 08/13/2023 LIPID PANEL Routine 08/13/2023 HEMOGLOBIN A1C Routine 01/17/2021 from Last 3 Months or Most Recently Relevant to Health Maintenance Results * Urine Albumin Creatinine Ratio (08/13/2023) Pathologist [facility] Urine Albumin Creatinine Ratio Abstracted [facility] Provider HEALTH MAINTENANCE Final Result * Annual BMP Blood Test (08/13/2023) Pathologist [facility] Annual BMP Blood Test Abstracted [facility] Provider HEALTH MAINTENANCE Final Result * Lipid panel (08/13/2023) Pathologist [facility] LDL/HDL Ratio 0 Triglycerides 0 mg/dL Cholesterol 0 mg/dL HDL 0 mg/dL LDL Cholesterol 0 mg/dL Blood Venous blood specimen / Unknown Result [facility] Provider LAB BLOOD ORDERABLES Violet l Result * Hemoglobin A1c (01/17/2021) Pathologist [facility] Hemoglobin A1C 0.0 % Blood Venous blood specimen / Unknown us Historical Provider LAB BLOOD ORDERABLES Violet l Result from Last 3 Months or Most Recently Relevant to Health Maintenance Insurance Member Subscriber Plan / Payer (Ef fective 2020-Present) Name:Mary Giles Relation to Subscriber:Self Name:Mary Giles Payer ID:[id number] Group ID:[id number] Type:Not on file Address: [place] [address] [address] [phone] Care Teams Inventory Control Specialist Relationship Specialty Start Date End Date [place], MD Hazel [address] [place] [address] MARGO Jha [phone] PCP - General 10/13/23
--- OUTSIDE RECORDS SUMMARY | 2025-01-10 14:46 | XMS_ITS | Encounter Summary ---
Author Organization [employer] Address [address] [facility] [address] [place] [address] Care Team Providers Care Hand Pattern Marker Name Role Phone Hazel Kilgore MD Primary Care Provider [phone] Tee Shay MD Unavailable [phone] Nia Borja Unavailable [phone] Reason for Visit * Reason Onset Date Comments Durable Medical Equipment 12/16/2024 Incont supplies Encounter Details Date Type Department Care Team (Late st Contact Info) Description 12/16/2024 Telephone [facility] [address] [place], [place] [phone] Hazel Kilgore MD [address] [place], [place] [phone] Durable Medical Equipment (Incont supplies) Social History Tobacco Use Types Packs/Day Years [...] AM EDT documented as of this encounter Miscellaneous Notes * Telephone Encounter - Jazzmine Grimes - 12/16/2024 2:33 PM EST Confirmation of order for incontinence supplies from [facility] placed on PCP desk for signature. documented in this encounter Plan of Treatment Upcoming Encounters Date Type Department Care Team (Late st Contact Info) Description 01/20/2025 11:30 AM EDT Telemedicine [facility] [address] [place] [id number] Hazel Kilgore MD [address] [place] [address] documented as of this encounter Visit Diagnoses Not on filedocumented in this encounter Additional Health Concerns Assessment Noted Time PHQ-9 Depression Total Score: 0 11/21/19 25 10:37 AM EST documented as of this encounter Care Teams Hand Pattern Marker Relationship Specialty Start Date End Date Hazel Kilgore MD [address] [place] [id number] PCP - General Family Medicine 11/09/18 Tee Shay MD [address] [facility] [address] [place] [address] Nephrology 11/07/24 Nia Borja [address] [place] [address] Cardiology 11/07/24 [facility] [address] [facility] Endocrinology 10/14/24 Derrick Mullen, DPVannesa [address] [place] [address] Podiatry 11/07/24 documented as of this encounter
--- OUTSIDE RECORDS SUMMARY | 2025-01-10 14:46 | XMS_ITS | Encounter Summary ---
Author Organization [facility] Address [address] [place] [address] [place] [address] Phone Care Team Providers Care Jumpbasting Lining Baster Name Role Phone Hazel Kilgore MD Primary Care Provider U catracho Encounter Details Date Type Department Care Team (Late st Contact Info) Description 03/24/2022 Telephone [facility] [address] [place] [address] [place] [address] Tee Shay MD [address] [facility] [address] [place] [address] Social History Tobacco Use [...] encounter Miscellaneous Notes * Telephone Encounter - Dulce Hollis [place] - 03/26/2022 11:[address] hernandez is this al set * Telephone Encounter - Jeaneth Orourke - 03/24/2022 11:28 AM EDT Renae from [facility] called she would like to know if an updated script for lasix 1 tablet in the AM can besent to [facility] pharmacy seeing as the pt has not been taking her PM dose due to frequent nighttime urination. Thank you documented in this encounter Plan of Treatment Not on file documented as of this encounter Visit Diagnoses Not on filedocumented in this encounter Care Teams Jumpbasting Lining Baster Relationship Specialty Start Date End Date Hazel Kilgore MD [address] [place] [id number] PCP - General 11/19/20 documented as of this encounter
--- OUTSIDE RECORDS SUMMARY | 2025-01-10 14:46 | XMS_ITS | Encounter Summary ---
Author Organization [employer] Address [address] [facility] 7[address] [place] [address] Care Team Providers Care Epic Cadence Analyst Name Role Phone Hazel Kilgore MD Primary Care Provider [phone] Tee Shay MD Unavailable [phone] Nia Borja Unavailable [phone] Reason for Referral * Consultation (Routine) - Pending Review Specialty Diagnoses / Procedures Referred By Contpatria t Referred To Contact Gastroenterology Diagnoses Diarrhea, unspecified type Hazel Kilgore MD [address] [place] [phone] Phone: tel: fax: Referral ID Status Reason Start Date Expiration Date Visits Requested Visits Authorized [id number] Pending Review Specialty Services Required 01/10/2025 01/10/2026 1 1 Reason for Visit * Reason Comments left eye infection dihereah Encounter Details Date Type Department Care Team (Latest Contact Info) Description 01/10/2025 11:00 AM EST Office Visit [facility] [address] [place] [address] [phone] Hazel Kilgore MD [address] [place] [address] Diarrhea, unspecified type (Primary Dx); Acute conjunctivitis of right eye, unspecified acute conjunctivitis type; Primary hypertension; Type 2 diabetes mellitus with other specified complication, with long-term current use of insulin ([facility]) Social History Tobacco Use Types Packs/Day Years [...] AM EDT documented as of this encounter Last Filed Vital Signs Vital Sign Reading Time Taken Comments Blood Pressure 114/49 01/10/2025 11:03 AM EST Pulse 76 01/10/2025 11:03 AM EST Temperature 35.8 ??C (96.4 ??F) 01/10/2025 1 1:03 AM EST Respiratory Rate 17 01/10/2025 11:0 3 AM EST Oxygen Saturation 93% 01/10/2025 11: 03 AM EST Inhaled Oxygen Concentration - - Weight 77.5 kg (170 lb 12.8 oz) 025 11:03 AM EST Height - - Body Mass Index 31.24 11/21/2024 10:34 AM EST documented in this encounter Progress Notes * Annalisa Snowden - 01/10/2025 11:00 AM EST Subjective Patient ID: Mary Fontenot is a 79 y.o. adult with past medical history of CKD stage III, COPD, type 2 diabetes, hx endometrial cancer s/p NICOLAS who presents to walk in clinic for left eye infection(chiomaah). Pt reports she has been having watery diarrhea since she last saw me(her PCP). She notes she can eat well but then does not have a BM for a couple days and then when she has a BM its watery diarrhea.Pt is taking colace and iron, which we discussed stopping just for precaution of interacting, worsening diarrhea. She reports she has recently been on abx. Per records pt was prescribed Amoxicillin in November 2024. She reports she has been having diarrhea since before avinash. Per records she wason Macrobid around that time. She also notes she has suspected having an infection in her left eye that has been red since two days ago. Denies any fevers, cough, sore throat, nausea or vomiting. She reports she was seeing her eyelet operator for infection in her right eye before. Review of Systems Constitutional: Negative for fever and unexpected weight change. Eyes: Positive for pain and redness. Respiratory: Negative for shortness of breath. Cardiovascular: Negative for chest pain. Gastrointestinal: Positive for diarrhea. Negative for abdominal pain. Genitourinary: Negative for difficulty urinating. Objective Visit Vitals BP (!) 114/49 (BP Location: Left arm, Patient Position: Sitting, BP Cuff Size: Adult) Pulse 76 Temp 96.4 ??F (35.8 ??C) (Temporal) Resp 17 Body mass index is 31.24 kg/m??. Physical Exam Constitutional: Appearance: Normal appearance. Cardiovascular: Rate and Rhythm: Normal rate. Pulmonary: Effort: Pulmonary effort is normal. Abdominal: General: Abdomen is flat. Palpations: Abdomen is soft. Tenderness: There is no abdominal tenderness. There is no guarding or rebound. Neurological: General: No focal deficit present. Mental Status: He is alert. Psychiatric: Behavior: Behavior normal. Problem List Items Addressed This Visit Diarrhea - Primary Unknown etiology. Suspect influence of iron supplements and Colace, recommending stopping those fortime being until diarrhea clears, -Ordered Stool panel, Albumin Cr ratio, HFP, A1C, FLP and BMP -Advised on adequate hydration. Relevant Orders POCT Influenza A manually resulted (Completed) POCT Influenza B manually resulted (Completed) POCT Rapid COVID Ag (Completed) CLOSTRIDIUM DIFFICILE TOXINB,QL REAL TIME PCR Stool - Gastrointestinal panel Albumin, Random Urine W/Creatinine Hepatic Function Panel Basic Metabolic Panel CBC auto differential TSH W/Reflex to FT4 Referral to Gastroenterology Acute conjunctivitis of right eye Right eye consistent with acute viral conjunctivitis. -prescribed erythromycin (Romycin) 5 MG/GM ophthalmic ointment Hypertension -Blood pressure is at goal -Continue lifestyle modifications -Continue current medications -Continue amlodipine 5mg daily -Continue isosorbide ER 30 -Continue Lasix 40 daily -Pt is to take Cardura 4 mg at bedtime as she saw improvement in BP in the past when taking it at night. -Continue metoprolol 25 ER started 07/2024 for afib - She is no longer on JULIANO or ARB due to persistent hyperkalemia -Disconitnue Amlodipine due to low BP, symptomatic 12/03/23 -started amlodipine, refilled 01/10/25 Relevant Medications amLODIPine (Norvasc) 5 MG tablet Type 2 diabetes mellitus (CMS/HCC) Diabetes is controlled. Followed at Endocrinology [facility] with HENOK King note from 10/13/24 reviewed Lab Results Component Value Date HGBA1C 8.5 (A) 11/21/2024 HGBA1C 7.8 (H) 07/21/2024 HGBA1C 8.5 (A) 07/01/2024 - Lab Results Component Value Date CREATININE 1.07 08/11/2024 EGFR 49 08/11/2024 MICROALBCREU 61.4 (H) 07/21/2024 MICROALBCREU 13.3 08/13/2023 LDLCHOLCAL 65 07/21/2024 -Juliano/Arb: none due to hx hyperkalemia -Statin therapy: rosuvastatin 20mg -Diabetic eye exam: with [facility] 06/2024 -Diabetic foot exam: 1via podiatry with Raymond Mullen done 11/16/23 -Continue lifestyle modifications -Continue current medications -Farxiga 10 qam -Trulicity 3 MG -Lantus 30 units -Novolog 5 or 6 qac Relevant Orders CLOSTRIDIUM DIFFICILE TOXINB,QL REAL TIME PCR Stool - Gastrointestinal panel Albumin, Random Urine W/Creatinine Hepatic Function Panel Lipid Panel, Standard Hemoglobin A1c Basic Metabolic Panel -No evidence of acute disease process. Suspect viral conjunctivitis of left eye. Unknown etiology of prolonged diarrhea. Symptoms mild. -Ordered labs, stool test and referred to GI. -Will treat with abx eye ointment. -ER precautions discussed. -Seek medical attention for worsening symptoms. Follow up in about 10 days (around 01/20/2025) for 11:45am, Televisit for follow- up labs/diarrhea - Miles Kilgore. I, Annalisa Snowden, am serving as a scribe to document services personally performed by Dr. Mitchell, based on the patient's response to questions by provider and providers statements to me. documented in this encounter Miscellaneous Notes * Assessment & Plan Note - Annalisa Snowden - 01/10/2025 11:22 AM ESTAssociated Problem(s): Acute conjunctivitis of right eye Right eye consistent with acute viral conjunctivitis. -prescribed erythromycin (Romycin) 5 MG/GM ophthalmic ointment * Assessment & Plan Note - Annalisa Snowden - 01/10/2025 11:21 AM ESTAssociated Problem(s): Type 2 diabetes mellitus ([facility]) Diabetes is controlled. Followed at Endocrinology [facility] with HENOK King note from 10/13/24 reviewed Lab Results Component Value Date HGBA1C 8.5 (A) 11/21/2024 HGBA1C 7.8 (H) 07/21/2024 HGBA1C 8.5 (A) 07/01/2024 - Lab Results Component Value Date CREATININE 1.07 08/11/2024 EGFR 49 08/11/2024 MICROALBCREU 61.4 (H) 07/21/2024 MICROALBCREU 13.3 08/13/2023 LDLCHOLCAL 65 07/21/2024 -Juliano/Arb: none due to hx hyperkalemia -Statin therapy: rosuvastatin 20mg -Diabetic eye exam: with [facility] 06/2024 -Diabetic foot exam: 1via podiatry with Raymond Mullen done 11/16/23 -Continue lifestyle modifications -Continue current medications -Farxiga 10 qam -Trulicity 3 MG -Lantus 30 units -Novolog 5 or 6 qac * Assessment & Plan Note - Annalisa Snowden - 01/10/2025 11:20 AM ESTAssociated Problem(s): Diarrhea Unknown etiology. Suspect influence of iron supplements and Colace, recommending stopping those fortime being until diarrhea clears, -Ordered Stool panel, Albumin Cr ratio, HFP, A1C, FLP and BMP -Advised on adequate hydration. * Assessment & Plan Note - Annalisa Snowden - 01/10/2025 11:18 AM ESTAssociated Problem(s): Hypertension -Blood pressure is at goal -Continue lifestyle modifications -Continue current medications -Continue amlodipine 5mg daily -Continue isosorbide ER 30 -Continue Lasix 40 daily -Pt is to take Cardura 4 mg at bedtime as she saw improvement in BP in the past when taking it at night. -Continue metoprolol 25 ER started 07/2024 for afib - She is no longer on JULIANO or ARB due to persistent hyperkalemia -Disconitnue Amlodipine due to low BP, symptomatic 12/03/23 -started amlodipine, refilled 01/10/25 documented in this encounter Plan of Treatment Upcoming Encounters Date Type Department Care Team (Late st Contact Info) Description 01/20/2025 11:30 AM EDT Telemedicine [facility] [address] [place] [address] Hazel Kilgore MD [address] [place] [address] Scheduled Orders Name Type Priority Associated Diagnoses Orde r Schedule CLOSTRIDIUM DIFFICILE TOXINB,QL REAL TIME PCR Lab Routine Diarrhea, unspecified type Type 2 diabetes mellitus with other specified complication, with long-term current use of insulin (CMS/HCC) Expected: 01/10/2025 (Approximate), Expires: 01/10/2026 Stool - Gastrointestinal panel Microbiology Routine Diarrhea, unspecified type Type 2 diabetes mellitus with other specified complication, with long-term current use of insulin (CMS/HCC) Expected: 01/10/2025 (Approximate), Expires: 01/10/2026 Scheduled Referrals Name Type Priority Associated Diagnoses Order Schedule Referral to Gastroenterology Outpatient Referral Routine Diarrhea, unspecified type Expected: 01/10/2025 (Approximate), Expires: 01/10/2026 documented as of this encounter Procedures Procedure Name Priority Date/Time Associated Diagnosis Comments TSH W/REFLEX TO FT4 Routine 01/10/2025 1 1:39 AM EST Diarrhea, unspecified type ALBUMIN, RANDOM URINE W/CREATININE Routine 01/10/2025 11:39 AM EST Diarrhea, unspecified type Type 2 diabetes mellitus with other specified complication, with long-term current use of insulin ([facility]) CBC WITH AUTO DIFFERENTIAL Routine 01/10/2025 11:39 AM EST Diarrhea, unspecified type HEMOGLOBIN A1C Routine 01/10/2025 11:39 AM EST Type 2 diabetes mellitus with other specified complication, with long-term current use of insulin (CMS/HCC) HEPATIC FUNCTION PANEL Routine 01/10/2025 11:39 AM EST Diarrhea, unspecified type Type 2 diabetes mellitus with other specified complication, with long-term current use of insulin ([facility]) LIPID PANEL, STANDARD Routine 01/10/2025 11:39 AM EST Type 2 diabetes mellitus with other specified complication, with long-term current use of insulin (CMS/HCC) BASIC METABOLIC PANEL Routine 01/10/2025 11:39 AM EST Diarrhea, unspecified type Type 2 diabetes mellitus with other specified complication, with long-term current use of insulin ([facility]) POCT INFLUENZA B Routine 01/10/2025 11:1 6 AM EST Diarrhea, unspecified type POCT INFLUENZA A Routine 01/10/2025 11:1 6 AM EST Diarrhea, unspecified type POCT RAPID COVID ANTIGEN Routine 01/10/2025 11:05 AM EST Diarrhea, unspecified type documented in this encounter Results * TSH W/Reflex to FT4 (01/10/2025 11:39 AM EST) TSH reflex Free T4 1.88 0.32 - 4.0 uIU/mL [facility] Blood Venous blood specimen / Unknown 01/10/2025 11:39 AM EST 01/10/2025 1:12 PM EST us Hazel Kilgore MD LAB BLOOD ORDERABLES Final Result [facility] [address] [place] [phone] * (ABNORMAL) CBC auto differential (01/10/2025 11:39 AM EST) White Blood Count 6.8 4.8 - 10.8 X10*3/uL [facility] Red Blood Count 5.10 4.20 - 5.50 X10*6/uL [facility] Hemoglobin 12.1 12.0 - 16.0 g/dl [facility] Hematocrit 41.3 37.0 - 47.0 % [facility] Mean Corpuscular Volume 81.0 80.0 - 98.0 fL [facility] Mean Corpuscular Hemoglobin 23.7(L) 27.0 - 33.0 pg [facility] Mean Corpuscular HGB Conc 29.3(L) 31.0 - 35.0 g/dl [facility] Red Cell Distribution Width 16.4(H) 11.0 - 16.0 % [facility] Platelet Count 163 160 - 400 X10*3/uL [facility] Mean Platelet Volume 12.2 9.4 - 12.3 fL [facility] Neutrophils Percent Auto 67.5 45 - 73 % [facility] Imm Gran Pct Auto 0.3 0.0 - 0.4 % [facility] Lymphocytes Percent Auto 21.6 20 - 40 % [facility] Monocytes Percent Auto 8.9 2 - 11 % [facility] Eosinophils Percent Auto 1.6 0 - 4 % [facility] Basophils Percent Auto 0.1 0 - 2 % [facility] NRBC Pct Auto 0.0 0.0 - 0.2 /100WBC [facility] Neutrophils Absolute Auto 4.6 2.0 - 8.3 x10*3/uL [facility] Imm Gran Abs Auto 0.02 0.00 - 0.03 X10*3/uL [facility] Lymphocytes Absolute Auto 1.5 1.2 - 4.9 X10*3/uL [facility] Monocytes Absolute Auto 0.6 0.1 - 1.2 X10*3/uL [facility] Eosinophils Absolute Auto 0.1 0.0 - 0.4 X10*3/uL [facility] Basophils Absolute Auto 0.0 0.0 - 0.2 X10*3/uL [facility] NRBC Abs Auto 0.000 0.0 - 0.012 X10*3/uL [facility] Blood Venous blood specimen / Unknown 01/10/2025 11:39 AM EST 01/10/2025 1:11 PM EST us Hazel Kilgore MD LAB BLOOD ORDERABLES Final Result [facility] [address] [place] [phone] * (ABNORMAL) Basic Metabolic Panel (01/10/2025 11:39 AM EST) Sodium 142 135 - 145 mmol/L [facility] Potassium 4.7 3.3 - 5.1 mmol/L [facility] Chloride 104 96 - 108 mmol/L [facility] Carbon Dioxide 32(H) 22 - 29 mmol/L [facility] Anion Gap 11(L) 12 - 20 [facility] Urea Nitrogen (BUN) 26(H) 9 - 16 mg/dL [facility] Creatinine, Serum 1.18 0.5 - 1.4 mg/dL [facility] Estimated Glomerular Filt Rate 44 [facility] Comment:Chronic Kidney Disea se: Estimated GFR < 60 mL/min/1.45k2Kihnxd Kidney Disease: Estimated GFR < 15 mL/min/1.73m2 Glucose 186(H) 60 - 115 mg/dL [facility] Calcium 9.5 8.4 - 10.2 mg/dL [facility] Blood Venous blood specimen / Unknown 01/10/2025 11:39 AM EST 01/10/2025 1:12 PM EST us Hazel Kilgore MD LAB BLOOD ORDERABLES Final Result Performing Organization Address City/State/[facility] Co de Phone Number [facility] [address] [place] [phone] * (ABNORMAL) Hemoglobin A1c (01/10/2025 11:39 AM EST) Hemoglobin A1c 7.6(H) <6.0 % [facility] Comment:Hemoglobin A1C Refer ence Range Adults: 4.8 - 6.0 % Non diabetic: < 6.0 % Goal: < 7.0 %Additional Action Suggested: > 8.0 %Note: Hemoglobin A1c results are invalid for patients with abnormal amounts of HbF. Blood transfusions may impact the HbA1c concentration in the patient sample. Estimated Average Glucose 171 mg/dL [facility] Comment:eAG = Estimated ave rage glucose which is %A1C expressed asaverage glucose, using the formula of the M0T-[id number] Glucose study (ADAG), Diabetes Care, Vol.31,#8,2007 Blood Venous blood specimen / Unknown 01/10/2025 11:39 AM EST 01/10/2025 1:12 PM EST Hazel Kilgore MD LAB BLOOD ORDERABLES Final Result Performing Organization Address City/[facility]/ZIP Co de Phone Number [facility] [address] [place] [phone] * Lipid Panel, Standard (01/10/2025 11:39 AM EST) Triglycerides 81 <150 mg/dL [facility] Comment:Desirable Triglyceri de: less than 150 mg/dLBorderline High Triglyceride 150-199 mg/dLHigh Triglyceride: 200-499 mg/dLVery High Triglyceride: greater than or equal to 5OO mg/dL Cholesterol 133 <200 mg/dL [facility] Comment:Desirable Cholestero l: less than 200 mg/dLBorderline High Cholesterol: 200-239 mg/dLHigh Cholesterol: greater than 239 mg/dL LDL Cholesterol Calculated 70 <100 mg/dL [facility] Comment:Desirable LDL: less than 100 mg/dLNear Optimal/Above Optimal LDL: 110- 129 mg/dLBorderline High LDL: 130-159 mg/dLHigh LDL: 160-189 mg/dLVery High LDL: greater than or equal to 190 mg/dL HDL Cholesterol 47 >40 mg/dL [facility] Comment:Desirable HDL: great er than 40 mg/dL Note: This HDL assay may give artificially low results in patients with liver disease. Blood Venous blood specimen / Unknown 01/10/2025 11:39 AM EST 01/10/2025 1:12 PM EST Hazel Kilgore MD LAB BLOOD ORDERABLES Final Result Performing Organization Address City/[facility]/ZIP Co de Phone Number [facility] [address] [place] [phone] * (ABNORMAL) Hepatic Function Panel (01/10/2025 11:39 AM EST) Bilirubin, Total 0.4 0.0 - 1.0 mg/dL [facility] Bilirubin, Direct 0.2 0.0 - 0.5 mg/dL [facility] Aspartate Amino Transferase 33(H) 5 - 31 U/L [facility] Alanine Aminotransferase 43(H) 0 - 31 U/L [facility] Total Protein 7.3 6.5 - 8.0 g/dL [facility] Albumin Level 3.7 3.5 - 5.0 g/dL [facility] Alkaline Phosphatase 66 39 - 117 U/L [facility] Blood Venous blood specimen / Unknown 01/10/2025 11:39 AM EST 01/10/2025 1:12 PM EST Hazel Kilgore MD LAB BLOOD ORDERABLES Final Result Performing Organization Address [facility] de Phone Number [facility] [address] [place] [phone] * Albumin, Random Urine W/Creatinine (01/10/2025 11:39 AM EST) Creatinine, Urine 85.67 mg/dL [facility] Microalbumin Urine 12.0 mg/L [facility] Microalbum Creatinine Ratio Ur 14.0 <30 ug/mg cr [facility] Comment:Albumin/Creatinine R atio Reference Ranges: Normal: < 30 ug/mg creatinine Microalbuminuria: 30 - 300 ug/mg creatinineClinical Albuminuria: > 300 ug/mg creatinine Urine 01/10/2025 11:3 9 AM EST 01/10/2025 1:12 PM EST Hazel Kilgore MD LAB URINE ORDERABLES Final Result Performing Organization Address [facility] Co de Phone Number [facility] [address] [place] [phone] * POCT Influenza B manually resulted (01/10/2025 11:16 AM EST) Rapid Influenza B Ag Negative Negative, Indeterminate QC Media Lot # [id number] Lot# Expiration Date Swab 01/10/2025 11:1 6 AM EST Hazel Kilgore MD POINT OF CARE TEST ENTER/E DIT ORDERABLES Final Result * POCT Influenza A manually resulted (01/10/2025 11:16 AM EST) Rapid Influenza A Ag Negative Negative, Indeterminate QC Media Lot # [id number] Lot# Expiration Date Swab Nasopharyngeal structure / Unknown 01/10/2025 11:16 AM EST Hazel Kilgore MD POINT OF CARE TEST ENTER/E DIT ORDERABLES Final Result * POCT Rapid COVID Ag (01/10/2025 11:05 AM EST) Pathologist [facility] Rapid COVID Ag Negative QC Media Lot # [id number] Lot# Expiration Date Swab 01/10/2025 11:0 5 AM EST Hazel Kilgore MD POINT OF CARE TEST ENTER/E DIT ORDERABLES Final Result documented in this encounter Visit Diagnoses Diagnosis Diarrhea, unspecified type- Primary Acute conjunctivitis of right eye, unspecified acute conjunctivitis type Primary hypertension Unspecified essential hypertension Type 2 diabetes mellitus with other specified complication, with long-term current use of insulin ([facility]) documented in this encounter Additional Health Concerns Assessment Noted Time PHQ-9 Depression Total Score: 0 11/21/19 25 10:37 AM EST documented as of this encounter Care Teams Epic Cadence Analyst Relationship Specialty Start Date End Date Hazel Kilgore MD [address] [place] [address] PCP - General Family Medicine 11/09/18 Tee Shay MD [address] [facility] [address] [place] [phone] Nephrology 11/07/24 Nia Borja [address] [place] [phone] Cardiology 11/07/24 Mary Ann [facility] Endocrinology [address] [facility] Endocrinology 10/14/24 Derrick Mullen, MADIHA [address] [place] [phone] Podiatry 11/07/24 documented as of this encounter
--- OUTSIDE RECORDS SUMMARY | 2025-01-10 14:46 | XMS_ITS | Encounter Summary ---
Author Organization [employer] Address [address] [place] [address] Care Team Providers Care Cattle Killer Name Role Phone Hazel Kilgore MD Primary Care Provider [phone] Tee Shay MD Unavailable [phone] Nia Borja Unavailable [phone] Reason for Visit * Reason Onset Date Comments [employer] 12/19/2024 P ad, 1 Pad prevail, Surcr cardinal protect LG Encounter Details Date Type Department Care Team (Late st Contact Info) Description 12/19/2024 Telephone [facility] [address] [place], [place] [phone] Hazel Kilgore MD [address] [place], [place] [phone] [employer] (Pad, 1 Pad prevail, Surcr cardinal protect LG) Social History Tobacco Use Types Packs/Day Years [...] encounter Miscellaneous Notes * Telephone Encounter - Veronica Pérez [place] - 12/20/2024 12:19 PM EST Medical necessity form has been signed by the PCP, and has been faxed to [employer]. Form has been sent in for scanning. * Telephone Encounter - Veronica Pérez [place] - 12/19/2024 11:14 AM EST Received medical necessity form from [employer] for Pad, 1 Pad prevail, Surcr cardinal protectLG. Form has been filled out and placed on PCP's desk for their signature. documented in this encounter Plan of Treatment Upcoming Encounters Date Type Department Care Team (Late st Contact Info) Description 01/20/2025 11:30 AM EDT Telemedicine [facility] [address] [place], [place] [phone] Hazel Kilgore MD [address] [place], [place] [phone] documented as of this encounter Visit Diagnoses Not on filedocumented in this encounter Additional Health Concerns Assessment Noted Time PHQ-9 Depression Total Score: 0 11/21/19 25 10:37 AM EST documented as of this encounter Care Teams Cattle Killer Relationship Specialty Start Date End Date Hazel Kilgore MD [address] [place] [address] PCP - General Family Medicine 11/09/18 Tee Shay MD [address] [place] [address] [place] [phone] Nephrology 11/07/24 Nia Borja [address] [facility] [address] [place] [address] Cardiology 11/07/24 Mary Ann Matthew [place] [facility] Endocrinology [address] [facility] Endocrinology 10/14/24 Derrick Mullen, DPM [address] [place] [address] Podiatry 11/07/24 documented as of this encounter
--- OUTSIDE RECORDS SUMMARY | 2025-01-10 14:46 | XMS_ITS | Encounter Summary ---
Author Organization [employer] Address [address] [place] [address] Care Team Providers Care Cryptographic Technician Name Role Phone Hazel Kilgore MD Primary Care Provider [phone] Tee Shay MD Unavailable [phone] Nia Borja Unavailable [phone] Reason for Visit * Reason Comments Med Refill Encounter Details Date Type Department Care Team (Late st Contact Info) Description 08/19/2023 Refill [facility] [address] [place], [place] [phone] Hazel Kilgore MD [address] [place] [address] Social History Tobacco Use Types Packs/Day Years [...] EDT Telemedicine [facility] [address] [place] [address] Hazel Kilgore MD [address] [place] [address] documented as of this encounter Visit Diagnoses Not on filedocumented in this encounter Additional Health Concerns Assessment Noted Time PHQ-9 Depression Total Score: 0 07/03/20 23 9:07 AM EDT documented as of this encounter Care Teams Cryptographic Technician Relationship Specialty Start Date End Date Hazel Kilgore MD [address] [place] [address] PCP - General Family Medicine 11/09/18 Tee Shay MD [address] [facility] [address] [place] [address] Nephrology 11/07/24 Nia Borja [address] [facility] [address]LO[address] [place] [address] Cardiology 11/07/24 Mary Ann Matthew MA [facility] Endocrinology 3300 [facility] Endocrinology 10/14/24 Derrick Mullen, MADIHA [address] [place] [address] Podiatry 11/07/24 documented as of this encounter
--- OUTSIDE RECORDS SUMMARY | 2025-01-10 14:46 | XMS_ITS | Encounter Summary ---
Author Organization [employer] Address [address] [place] [address] Care Team Providers Care Health Insurance Assessor Name Role Phone Hazel Kilgore MD Primary Care Provider [phone] Tee Shay MD Unavailable [phone] Nia Borja Unavailable [phone] Encounter Details Date Type Department Care Team (Late st Contact Info) Description 08/20/2023 Orders Only [facility] MED[facility] [address] [place], [place] [phone] Hazel Kilgore MD [address] [place], [place] [phone] Social History Tobacco Use Types Packs/Day Years [...] Info) Description 01/20/2025 11:30 AM EDT Telemedicine [facility] [address] [place] [address] Hazel Kilgore MD [address] [place] [address] documented as of this encounter Visit Diagnoses Not on filedocumented in this encounter Additional Health Concerns Assessment Noted Time PHQ-9 Depression Total Score: 0 07/03/20 23 9:07 AM EDT documented as of this encounter Care Teams Health Insurance Assessor Relationship Specialty Start Date End Date Hazel Kilgore MD [address] [place] [address] PCP - General Family Medicine 11/09/18 Tee Shay MD [address] [place] [address] [place] [address] Nephrology 11/07/24 Nia Borja 3300 [facility] [address] [place] [address] Cardiology 11/07/24 Mary Ann Matthew MA [facility] Endocrinology 3300 [facility] Endocrinology 10/14/24 Derrick Mullen, DPM [address] [place] [address] Podiatry 11/07/24 documented as of this encounter
--- OUTSIDE RECORDS SUMMARY | 2025-01-10 14:46 | XMS_ITS | Encounter Summary ---
Author Organization [facility] Address [address] [place] [address] Phone Care Team Providers Care Fish Bailer Name Role Phone Hazel Kilgore MD Primary Care Provider U catracho Encounter Details Date Type Department Care Team (Late st Contact Info) Description 09/15/2024 Office Communication [facility] [address] [facility] [facility] [address] [place] [address] Tee Shay MD [address] [address] Social History Tobacco Use Types [...] Telephone Encounter - Tee Shay MD - 09/15/2024 4:14 PM EST Needs f/u iwht me in 2-3 months ? Why no f/u booked documented in this encounter Plan of Treatment Not on file documented as of this encounter Visit Diagnoses Not on filedocumented in this encounter Care Teams Fish Bailer Relationship Specialty Start Date End Date Hazel Kilgore MD [address] [place] [address] PCP - General 11/19/20 documented as of this encounter
--- OUTSIDE RECORDS SUMMARY | 2025-01-10 14:46 | XMS_ITS | Encounter Summary ---
Author Organization [employer] Address [address] [place] [address] Care Team Providers Care Classroom Instructor Name Role Phone Hazel Kilgore MD Primary Care Provider [phone] Tee Shay MD Unavailable [phone] Nia Borja Unavailable [phone] Reason for Visit * Reason Onset Date Comments Referral 09/04/2023 Encounter Details Date Type Department Care Team (Late st Contact Info) Description 09/04/2023 Telephone [facility] [address] [place], [place] [phone] Hazel Kilgore MD [address] [place], [place] [phone] Referral Social History Tobacco Use Types Packs/Day Years [...] encounter Miscellaneous Notes * Telephone Encounter - Sumi Ramirez RN - 09/04/2023 11:00 AM EDT Needs new referral as her old provider is leaving, nail cutting for diabetes. Would like it at place below. * Telephone Encounter - Nyla Gallardo - 09/04/2023 10:47 AM EDT Tc from pt requesting a new referral for Podiatry specialist. [facility] Address [address] [place] [address] documented in this encounter Plan of Treatment Upcoming Encounters Date Type Department Care Team (Late st Contact Info) Description 01/20/2025 11:30 AM EDT Telemedicine [facility] [address] [place] [address] Hazel Kilgore MD [address] [place] [address] documented as of this encounter Visit Diagnoses Not on filedocumented in this encounter Additional Health Concerns Assessment Noted Time PHQ-9 Depression Total Score: 0 07/03/20 23 9:07 AM EDT documented as of this encounter Care Teams Classroom Instructor Relationship Specialty Start Date End Date Hazel Kilgore MD [address] [place] [address] PCP - General Family Medicine 11/09/18 Tee Shay MD [address] [place] [address] [place] [address] Nephrology 11/07/24 Nia Borja 33[address] [facility] [address] [place] [address] Cardiology 11/07/24 Mary Ann Matthew MA [facility] Endocrinology 3300 [facility] Endocrinology 10/14/24 Derrick Mullen, DPM [address] [place] [address] Podiatry 11/07/24 documented as of this encounter
--- OUTSIDE RECORDS SUMMARY | 2025-01-10 14:46 | XMS_ITS | Encounter Summary ---
Author Organization [email or web address] Address [address] [facility] [address] [place] [address] Care Team Providers Care Terrazzo Finisher Name Role Phone Hazel Kilgore MD Primary Care Provider [phone] Tee Shay MD Unavailable [phone] Nia Borja Unavailable [phone] Reason for Visit * Reason Onset Date Comments Med Refill 06/20/2024 Encounter Details Date Type Department Care Team (Late st Contact Info) Description 06/20/2024 Telephone [facility] [address] [place], [place] [phone] Hazel Kilgore MD [address] [place], [place] [phone] Med Refill Social History Tobacco Use Types Packs/Day Years Used Date Smoking Tobacco: Never Passive Smoke Exposure: Never Smokeless Tobacco: Never Alcohol Use Standard Drinks/Week Comments Never 0 (1 standard drink = 0.6 oz pur e alcohol) Depression Answer Date Recorded Patient Health Questionnaire-9 Score 0 07/03/2023 Housing Stability Answer Date Recorded What is your housing situation today? I have luanhelder yoon 09/03/[address] you [...] encounter Miscellaneous Notes * Telephone Encounter - Amaya Garcia LPN - 06/20/2024 1:18 PM EDT Medication pended to provider. * Telephone Encounter - Nyla Gallardo - 06/20/2024 12:19 PM EDT TC from pt requesting medication refill. Medications needing refill : Calcium Carb-Cholecalciferol 600-10 MG-MCG tablet Aspirin Adult Low Strength 81 MG EC tablet omeprazole (PriLOSEC) [address] capsule To be sent to: [facility] - [place], [place] - [address] [place] [address] documented in this encounter Plan of Treatment Upcoming Encounters Date Type Department Care Team (Late st Contact Info) Description 01/20/2025 11:30 AM EDT Telemedicine [facility] [address] [place] [address] Hazel Kilgore MD [address] [place] [address] documented as of this encounter Visit Diagnoses Not on filedocumented in this encounter Additional Health Concerns Assessment Noted Time PHQ-9 Depression Total Score: 0 07/03/20 23 9:07 AM EDT documented as of this encounter Care Teams Terrazzo Finisher Relationship Specialty Start Date End Date Sheldon, Hazel, MD [address] [place] [address] PCP - General Family Medicine 11/09/18 Tee Shay MD [address] [place] [address] [place] [address] Nephrology 11/07/24 Nia Borja [address] [facility] [address] [place] [address] Cardiology 11/07/24 Mary Ann Matthew MA [facility] Endocrinology 3300 [facility] Endocrinology 10/14/24 Derrick Mullen, DPM [address] [place] [address] Podiatry 11/07/24 documented as of this encounter
--- OUTSIDE RECORDS SUMMARY | 2025-01-10 14:47 | XMS_ITS | Clinical Summary ---
Author Organization [employer] Address [address] [place] [address] Care Team Providers Care Label Sewer Name Role Phone Hazel Kilgore MD Primary Care Provider [phone] Tee Shay MD Unavailable [phone] Nia Borja Unavailable [phone] Allergies No known active allergies Medications TRUEplus Lancets 33G miscIndications: Type 2 diabetes mellitus with other specified complication, with long-term current use of insulin ([facility]) TEST BLOOD SUGAR SIX TIMES DAILY 100 each 11 024 Active Ascorbic Acid (vitamin C) 500 MG tabletIndication s:Iron deficiency TAKE 1 TABLET BY MOUTH TWICE DAILY IN THE MORNING AND AT BEDTIME 60 tablet 11 Active rosuvastatin (Crestor) 20 MG tabletIndication s:Type 2 diabetes mellitus with stage 3b chronic kidney disease, with long-term current use of insulin ([facility]),Hyperl ipidemia, unspecified hyperlipidemia type TAKE 1 TABLET BY MOUTH AT BEDTIME 90 tablet 3 024 Active Sure Comfort Pen [place] 31G X 5 MM miscIndications: Type 2 diabetes mellitus with other specified complication, with long-term current use of insulin ([facility]) USE DIRECTED FOUR TIMES DAILY 100 each 11 Active aspirin (Aspirin Low Dose) 81 MG EC tabletIndication s:Atrial fibrillation with RVR ([facility]) Per cardiology Active dapagliflozin (Farxiga) 10 MGIndications:Ty pe 2 diabetes mellitus with stage 3a chronic kidney disease, unspecified whether detention insulin use ([facility]) Take 1 tablet by mouth. Active doxazosin (Cardura) 4 MG tabletIndication s:Hypertension, unspecified type Take 1.5 tablets by mouth at bedtime. Active insulin glargine (Lantus SoloStar) 100 UNIT/ML penIndications:T ype 2 diabetes mellitus with stage 3a chronic kidney disease, unspecified whether detention insulin use ([facility]) Inject 30 units subcutaneously daily 15 mL 3 Active insulin aspart (NovoLOG FLEXPEN) 100 UNIT/ML penIndications:T ype 2 diabetes mellitus with stage 3a chronic kidney disease, unspecified whether detention insulin use ([facility]) Inject 6-7 units tid before meals sc 15 mL Active dulaglutide (Trulicity) 3 MG/0.5ML solution pen-injectorIndi cations:Type 2 diabetes mellitus with stage 3a chronic kidney disease, unspecified whether detention insulin use ([facility]) Inject 3 mg under the skin 1 (one) time per week. Per endocrinology Active traMADol (Ultram) 50 MG tabletIndication s:Back pain, unspecified back location, unspecified back pain laterality, unspecified chronicity Take by mouth. For back pain from specialist Active mirabegron ER (Myrbetriq) 50 MG 24 hr tabletIndication s:Urinary incontinence, unspecified type Take 50 mg by mouth at bedtime. Do not crush, chew, or split. From urology Active metoprolol succinate XL (Toprol-XL) 25 MG 24 hr tabletIndication s:Hypertension, unspecified type,Atrial fibrillation with RVR ([facility]) Take 1 tablet (25 mg) by mouth Once per day. 90 tablet 3 Active LORazepam (Ativan) 0.5 MG tabletIndication s:Tremor Take by mouth. From neruology Active gabapentin (Neurontin) 600 MG tabletIndication s:Neuropathy Take by mouth. Per specialist tid Active FREESTYLE LITE test stripIndications :Type 2 diabetes mellitus with stage 3a chronic kidney disease, unspecified whether detention insulin use ([facility]) Use bid prn 150 strip 11 Active furosemide (Lasix) 40 MG tabletIndication s:Hypertension, unspecified type Take by mouth. Per nephrology Active fluticasone (Flovent HFA) 110 MCG/ACT inhalerIndicatio ns:Type 2 diabetes mellitus with stage 3a chronic kidney disease, unspecified whether detention insulin use ([facility]),Chroni c bronchitis, unspecified chronic bronchitis type ([facility]) Rinse mouth with water after use to reduce aftertaste and incidence of candidiasis. Do not swallow. 48 g 3 024 Active Eliquis 5 MG tabletIndication s:Atrial fibrillation with RVR ([facility]) Take 1 tablet (5 mg) by mouth 2 times daily. 60 tablet 11 024 Active prednisoLONE acetate (Pred-Forte) 1 % ophthalmic suspensionIndica tions:Open-angle glaucoma, unspecified glaucoma stage, unspecified laterality, unspecified open-angle glaucoma type INSTILL 1 DROP INTO RIGHT EYE TWICE A DAY 024 Active senna (Senokot) 8.6 MG tabletIndication s:Constipation, unspecified constipation type Take 1 tablet (8.6 mg) by mouth if needed at bedtime for constipation. 60 tablet 2 025 Active docusate sodium (Colace) 100 MG capsuleIndicatio ns:Constipation, unspecified constipation type TAKE 1 CAPSULE BY MOUTH TWICE DAILY IN THE MORNING AND AT BEDTIME 60 capsule 3 025 Active Aspirin EC Adult Low Dose 81 MG EC tabletIndication s:Type 2 diabetes mellitus with other specified complication, with long-term current use of insulin ([facility]) TAKE 1 TABLET BY MOUTH AT BEDTIME 90 tablet 1 025 Active Calcium + Vitamin D3 600-10 MG-MCG tabletIndication s:Renal osteodystrophy TAKE 1 TABLET BY MOUTH TWICE DAILY IN THE MORNING AND AT BEDTIME 180 tablet 1 025 Active omeprazole (PriLOSEC) [address] capsuleIndicatio ns:Gastroesophag eal reflux disease, unspecified whether esophagitis present TAKE 1 CAPSULE BY MOUTH EVERY MORNING BEFORE BREAKFAST 90 capsule 1 025 Active ferrous sulfate 325 (65 Fe) MG EC tabletIndication s:Iron deficiency TAKE 1 TABLET BY MOUTH THREE TIMES DAILY IN THE MORNING, AT NOON, AND IN THE EVENING WITH FOOD 90 tablet 025 Active isosorbide mononitrate ER (Imdur) 30 MG 24 hr tabletIndication s:Primary hypertension TAKE 1 TABLET BY MOUTH EVERY MORNING 90 tablet 1 025 Active amLODIPine (Norvasc) 5 MG tabletIndication s:Primary hypertension Take 5 mg by mouth 2 times daily. 017 2024 Active erythromycin (Romycin) 5 MG/GM ophthalmic ointmentIndicati ons:Conjunctival Infection Apply Amount per Dose: 0.25 inch (~0.5 cm) per dose. TID for 1 week. 15 g 025 Active dapagliflozin (Farxiga) 10 MGIndications:Ty pe 2 diabetes mellitus with stage 3a chronic kidney disease, unspecified whether terminal gauger insulin use ([facility]) Take by mouth. Per endocrinology 2024 Discontinued(M ed list cleanup (will not trigger notification to Pharmacy)) isosorbide mononitrate ER (Imdur) 30 MG 24 hr tabletIndication s:Primary hypertension TAKE 1 TABLET BY MOUTH EVERY MORNING 90 tablet 1 024 2024 Discontinued Active Problems Patient Care Coordination No te Formatting of this note migh t be different from the original. [facility] Mortar Worker: [facility] member services number [phone], provider services line, , option 4 Chalk Cutter Agency: [facility], [facility] Problem Noted Date Diagnosed Date Diarrhea 01/10/2025 Assessment & Plan (01/10/2025 11:20 AM EST): Unknown etiology. Suspect influence of iron supplements and Colace, recommending stopping those for time being until diarrhea clears, -Ordered Stool panel, Albumin Cr ratio, HFP, A1C, FLP and BMP -Advised on adequate hydration. Acute conjunctivitis of right eye 01/10/2025 Assessment & Plan (01/10/2025 11:22 AM EST): Right eye consistent with acute viral conjunctivitis. -prescribed erythromycin (Romycin) 5 MG/GM ophthalmic ointment Stage 3b chronic kidney disease 11/21/2024 Frail elderly 11/21/2024 Overview (11/21/2024): Pt is at high risk for falling. Recommend calling her insurance to see if they would approve a medic alert system. Assessment & Plan (11/21/2024 11:33 AM EST): Pt is at high risk for falling. Recommend calling her insurance to see if they would approve a medic alert system. Open-angle glaucoma 11/21/2024 Overview (11/21/2024): - Prescribed prednisoLONE acetate (Pred-Forte) 1 % ophthalmic suspension 11/21/24 Assessment & Plan (11/21/2024 12:45 PM EST): - Prescribed prednisoLONE acetate (Pred-Forte) 1 % ophthalmic suspension 11/21/24 Bilateral impacted cerumen 11/21/2024 Overview (11/21/2024): - Prescribed carbamide peroxide (Debrox) 6.5 % otic solution 11/21/24 Assessment & Plan (11/21/2024 12:44 PM EST): - Prescribed carbamide peroxide (Debrox) 6.5 % otic solution 11/21/24 Constipation 11/21/2024 Overview (11/21/2024): - Prescribed senna (Senokot) 8.6 MG tablet 11/21/24 Assessment & Plan (11/21/2024 12:44 PM EST): - Prescribed senna (Senokot) 8.6 MG tablet 11/21/24 Ambulates with cane 12/03/2023 Senile hyperkeratosis 12/02/2023 12/02/2023 Knee pain 12/02/2023 12/02/2023 GERD (gastroesophageal reflux disease) 12/02/2023 Class 1 obesity 12/02/2023 12/02/2023 Atrial fibrillation with RVR 08/12/2023 Overview (07/01/2024): 07/23/2023 initially admitted for periurethral bulking procedure for stress induce incontinence and post op noted to be hypotensive with new onset atrial fibrillation with RVR. She was started on metoprolol, apixaban and given iv fluids. Discharged on metoprolol and eliquis with cardiology follow up on 09/09. She will be set up with a vehicle monitor technician to evaluate for atrial fibrillation burden. -Echocardiogram with Evita Sevilla MD : The left ventricle is normal in size. Ejection fraction is 55-60%. The basal inferior wall is akinetic. Grade II diastolic dysfunction.The left atrium is mildly dilated.The right ventricle is normal in size. Function is preserved.The right atrium is normal in size. -seen by cardiology [facility] Attending Physician: Rigo Borja NP -continue Aspirin 81 MG -continue Metoprolol Succinate XL 25 MG Assessment & Plan (07/01/2024 11:06 AM EDT): 07/23/2023 initially admitted for periurethral bulking procedure for stress induce incontinence and post op noted to be hypotensive with new onset atrial fibrillation with RVR. She was started on metoprolol, apixaban and given iv fluids. Discharged on metoprolol and eliquis with cardiology follow up on 09/09. She will be set up with a vehicle monitor technician to evaluate for atrial fibrillation burden. -Echocardiogram with Evita Sevilla MD : The left ventricle is normal in size. Ejection fraction is 55-60%. The basal inferior wall is akinetic. Grade II diastolic dysfunction.The left atrium is mildly dilated.The right ventricle is normal in size. Function is preserved.The right atrium is normal in size. -seen by cardiology [facility] Attending Physician: Rigo Borja NP -continue Aspirin 81 MG -continue Metoprolol Succinate XL 25 MG Assessment & Plan (08/12/2023 10:29 AM EDT): 07/23/2023 initially admitted for periurethral bulking procedure for stress induce incontinence and post op noted to be hypotensive with new onset atrial fibrillation with RVR. She was started on metoprolol, apixaban and given iv fluids. Discharged on metoprolol and eliquis with cardiology follow up on 09/09. She will be set up with a vehicle monitor technician to evaluate for atrial fibrillation burden. Other specified health status 08/05/2023 Overview (11/21/2024): -next physical exam due after 11/21/2025 -eye care facilitated by Dr. Stubbs at [facility], seen 06/2024 -dental home is [place] -[facility] care proxy on file 12/03/23 Assessment & Plan (11/21/2024 12:46 PM EST): -next physical exam due after 11/21/2025 -eye care facilitated by Dr. Stbubs at [facility], seen 06/2024 -dental home is [place] -[facility] care proxy on file 12/03/23 Assessment & Plan (07/01/2024 11:04 AM EDT): -next physical exam due after 08/12/2024 -eye care facilitated by Dr. Stubbs seen 11/2023 -dental home is [place] -[facility] care proxy on file 12/03/23 Assessment & Plan (08/12/2023 1:17 PM EDT): -next physical exam due after 08/12/2024 -eye care facilitated by Dr. 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 Incidental pelvic mass revealed enlarged uterus and pyocervicum. 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 Lung biopsy on 08/15/16 was positive for metastatic endometrioid cancer. She is under the care of Dr. Cam Sanabria. S/p full course chemotherapy with carboplatin and Taxol. No evidence of residual on most recent CT. Follow up regional planner onc. 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 Incidental pelvic mass revealed enlarged uterus and pyocervicum. 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 Lung biopsy on 08/15/16 was positive for metastatic endometrioid cancer. She is under the care of Dr. Cam Sanabria. S/p full course chemotherapy with carboplatin and Taxol. No evidence of residual on most recent CT. Follow up regional planner onc. 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 Incidental pelvic mass revealed enlarged uterus and pyocervicum. 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 Lung biopsy on 08/15/16 was positive for metastatic endometrioid cancer. She is under the care of Dr. Cam Sanabria. S/p full course chemotherapy with carboplatin and Taxol. No evidence of residual on most recent CT. Follow up regional planner onc. Urinary incontinence 12/19/2021 Anemia of chronic renal failure 04/22/2021 Overview (07/01/2024): Lab Results Component Value Date HGB 10.5 (L) 04/12/2021 HGB 10.6 (L) 01/17/2021 HEMATOCRIT 35.5 04/12/2021 HEMATOCRIT 35.9 01/17/2021 Assessment & Plan (07/01/2024 11:00 AM EDT): Lab Results Component Value Date HGB 10.5 (L) 04/12/2021 HGB 10.6 (L) 01/17/2021 HEMATOCRIT 35.5 04/12/2021 HEMATOCRIT 35.9 01/17/2021 Benign hypertensive renal disease 04/22/2021 Renal osteodystrophy 04/22/2021 Edema of lower extremity 06/26/2017 Overview (08/05/2023): Pt had us negative for DVT with Dr. Shay. We ordered compression stockings 01/2021. Assessment & Plan (08/05/2023 10:56 AM EDT): Pt had us negative for DVT with Dr. Shay. We ordered compression stockings 01/2021. Positive reaction to tuberculin skin test 201512/02/2023 Chronic kidney disease (CKD) stage G3a/A1, moderately decreased glomerular filtration rate (GFR) between 45-59 mL/min/1.73 square meter and albuminuria creatinine ratio less than 30 mg/g 09/22/2014 Overview (07/01/2024): Seen by her nepharologist Dr. Tee Shay with [facility] 09/2023 -Had nephrology follow up 05/2024 Backache 09/26/2013 Overview (08/05/2023): Likely musculoskeletal strain. Pt has a h/o of endometrial cancers. No improvement with multiple medications. Lifting precautions. Pt had TENS unit placed 10/25/2018. It has not been helping. Pt is unable to go in for MRI as she has TENS unit in place. No longer seeing orthopedics. Unable to tolerate Oxycodone 5 mg bid. Continue Tramadol TID prn. Continue gabapentin. Continue lorazepam. Advised patient to call clinic if symptoms do not improve or worsen. Lumbar XR in 2016: 6 nonrib-bearing lumbar type vertebral bodies are considered. The last completely developed intervertebral disc is considered L6-S1. Lumbar XR in 2017: Multilevel degenerative changes greatest at L4-L5 and L5-L6 with little change compared to 2016. CT scan was done on 09/11 and showed multi-level degenerative disc bulges. No acute fracture. We're trying to get her a scooter. Her manager rn case is Cris Ibarra , phone #: [phone]. Was last seen on 04/2019 by [facility] and no further recommendations Assessment & Plan (08/05/2023 10:55 AM EDT): Likely musculoskeletal strain. Pt has a h/o of endometrial cancers. No improvement with multiple medications. Lifting precautions. Pt had TENS unit placed 10/25/2018. It has not been helping. Pt is unable to go in for MRI as she has TENS unit in place. No longer seeing orthopedics. Unable to tolerate Oxycodone 5 mg bid. Continue Tramadol TID prn. Continue gabapentin. Continue lorazepam. Advised patient to call clinic if symptoms do not improve or worsen. Lumbar XR in 2016: 6 nonrib-bearing lumbar type vertebral bodies are considered. The last completely developed intervertebral disc is considered L6-S1. Lumbar XR in 2017: Multilevel degenerative changes greatest at L4-L5 and L5-L6 with little change compared to 2016. CT scan was done on 09/11 and showed multi-level degenerative disc bulges. No acute fracture. We're trying to get her a scooter. Her manager rn case is Cris Ibarra , phone #: [phone]. Was last seen on 04/2019 by [facility] and no further recommendations COPD (chronic obstructive pulmonary disease) Hypertension 07/08/2012 Overview (01/10/2025): -Blood pressure is at goal -Continue lifestyle [...] Amlodipine due to low BP, symptomatic 12/03/23 -Restarted amlodipine, refilled 01/10/25 Assessment & Plan (01/10/2025 11:18 AM EST): -Blood pressure is at goal -Continue lifestyle [...] BP, symptomatic 12/03/23 -started amlodipine, refilled 01/10/25 Assessment & Plan (07/01/2024 11:00 AM EDT): -Blood pressure is at goal -Continue lifestyle [...] Amlodipine due to low BP, symptomatic 12/03/23 Assessment & Plan (12/24/2023 10:19 AM EST): -Blood pressure is at goal -Continue lifestyle modifications -Continue current medications -Continue isosorbide ER 30 -Continue Lasix 40 daily -Pt is to take Cardura 4 mg at bedtime as she saw improvement in BP in the past when taking it at night. -Continue metoprolol 25 ER started 07/2024 for afib - She is no longer on JULIANO or ARB due to persistent hyperkalemia -Disconitnue Amlodipine due to low BP, symptomatic 12/03/23 Assessment & Plan (12/03/2023 11:20 AM EST): -Blood pressure is at goal -Continue lifestyle modifications -Continue current medications -continue amlodipine 5mg daily -Continue isosorbide ER 30 -Continue Lasix 40 daily -Pt is to take Cardura 4 mg at bedtime as she saw improvement in BP in the past when taking it at night. Continue metoprolol 25 ER started 07/2024 for afib - She is no longer on JULIANO or ARB due to persistent hyperkalemia -disconitnue damlodipine due to low BP, symptomatic 12/03/23 Assessment & Plan (08/05/2023 10:04 AM EDT): -Blood pressure is at goal -Continue lifestyle modifications -Continue current medications -continue amlodipine 5mg daily -Continue isosorbide ER 30 -Pt is to take Cardura 4 mg at bedtime as she saw improvement in BP in the past when taking it at night. - She is no longer on JULIANO or ARB due to persistent hyperkalemia Hyperlipemia 03/26/2012 Overview (07/01/2024): Lab Results Component Value Date CHOL 127 08/13/2023 TRIG 79 08/13/2023 HDL 46 08/13/2023 LDLCHOLCAL 66 08/13/2023 -continue lifestyle modification -continue rosuvastatin 20mg daily Assessment & Plan (07/01/2024 11:03 AM EDT): Lab Results Component Value Date CHOL 127 08/13/2023 TRIG 79 08/13/2023 HDL 46 08/13/2023 LDLCHOLCAL 66 08/13/2023 -continue lifestyle modification -continue rosuvastatin 20mg daily Assessment & Plan (12/24/2023 10:20 AM EST): CHOLESTEROL 124 01/17/2022 LDLCHOL 58 01/17/2022 LDLCHOL 62 01/17/2021 LDLCHOL 75 04/19/2020 TRIG 79 08/13/2023 HDLCHOL 47 (L) 01/17/2022 CHOLHDLRAT 2.6 01/17/2022 -continue lifestyle modifications -continue rosuvastatin 20mg daily Assessment & Plan (08/12/2023 1:16 PM EDT): Lab Results Component Value Date CHOLESTEROL 124 01/17/2022 LDLCHOL 58 01/17/2022 LDLCHOL 62 01/17/2021 LDLCHOL 75 04/19/2020 HDLCHOL 47 (L) 01/17/2022 CHOLHDLRAT 2.6 01/17/2022 -continue lifestyle modifications -continue rosuvastatin 20mg daily Type 2 diabetes mellitus 03/26/2012 Overview (01/10/2025): Diabetes is controlled. Followed at [facility] with HENOK King note from 10/13/24 reviewed [...] 30 units -Novolog 5 or 6 qac Assessment & Plan (01/10/2025 11:21 AM EST): Diabetes is controlled. Followed at [facility] with HENOK King note from 10/13/24 reviewed [...] 30 units -Novolog 5 or 6 qac Assessment & Plan (02/27/2024 6:51 PM EDT): hb1AC 8.8 done today- capillary stable but not fully controlled -advised pt to be compliant w meds and to f w PCP Assessment & Plan (12/24/2023 10:20 AM EST): Diabetes is controlled. Followed at [facility] Lab Results Component Value Date HGBA1C 8.8 (A) 06/10/2023 HGBA1C 8.2 (H) 01/17/2021 HGBA1C 8.8 (H) 04/19/2020 -No results found for: POCA1C - Lab Results Component Value Date MICROALBUR 8.0 08/13/2023 CREATININE 1.24 08/13/2023 -Juliano/Arb: none due to hx hyperkalemia -Statin therapy: rosuvastatin 20mg -Diabetic eye exam: with Dr. Stubbs, 11/2023 -Diabetic foot exam: 08/12/2023 -Continue lifestyle modifications -Continue current medications -Farxiga 10 qam -Trulicity -Lantus 30 units -Novolog 5 or 6 qac Assessment & Plan (08/12/2023 1:16 PM EDT): Diabetes is controlled. - Lab Results Component Value Date HGBA1C 8.8 (A) 06/10/2023 HGBA1C 8.2 (H) 01/17/2021 HGBA1C 8.8 (H) 04/19/2020 -No results found for: POCA1C - Lab Results Component Value Date MICROALBUR 21.5 01/17/2021 CREATININE 1.10 06/10/2023 -Juliano/Arb: none due to hx hyperkalemia -Statin therapy: rosuvastatin 20mg -Diabetic eye exam: with Dr. Stubbs, up to date -Diabetic foot exam: 08/12/2023 -Continue lifestyle modifications -Continue current medications Resolved Problems Problem Noted Date Diagnosed Date Resolved Date Accident due to mechanical f all without injury 02/27/2024 07/01/2024 Assessment & Plan (02/27/2024 6:51 PM EDT): Feels better no concerning sympyoms Images from 02/15/2024 CT HEAD WITHOUT CONTRAST CT FACE WITHOUT CONTRAST CT CERVICAL SPINE WITHOUT CONTRAST Head: There is no acute intracranial hemorrhage or abnormal extra-axial collection. No intracranial mass effect or midline shift. Lateral and third ventricles are normal. There are scattered nonspecific foci of hypoattenuation within the periventricular white matter and alejandra. More-white matter differentiation is grossly preserved and there is no evidence of acute territorial infarct. The calvarium and skull base are intact. There are trace mastoid tip effusions. Face: Nasal bones, zygomatic arches, and pterygoid processes are intact. There is no acute mandibular fracture. Globes and extraocular muscles are symmetric. No abnormal retrobulbar inflammation or hematoma. Lamina papyracea and orbital floors are intact and there is no evidence of acute orbital blowout fracture. There is mild mucosal thickening within the alveolar recess of the right maxillary sinus. Paranasal sinuses are otherwise well aerated and thalami major paranasal sinus drainage pathways are patent. Cervical spine: Spinal alignment is normal. Vertebral body heights are preserved. No acute fracture. No abnormal prevertebral soft tissue swelling. There is no spinal canal compromise. There is degenerative arthrosis of the facet joints at multiple levels within the cervical spine. No bony neuroforaminal encroachment. Visualized soft tissues of the neck are normal. Lung apices are clear. XR KNEE, RIGHT XR KNEE, LEFT XR HAND, RIGHT XR HAND, LEFT Impression: 1. Extensive chondrocalcinosis in the knees. 2. Moderate degenerative changes bilateral knees. 3. Moderate degenerative changes bilateral first carpometacarpal joints. 4. Chondrocalcinosis in the hands. 5. Extensive vascular calcifications. -From head CT findings examined head and mastoid but denies ear complaints nor mastoid pain on exam -px today silver sulfadiazine for left knee for larger lesion but no active findings for infection ,states improving -alarm signs and symptoms discussed -advised pt to use RW for ambulation -referred today to PT for balance training -States not having much pain in knees for XR report ,also denies pale or cold extremities for reported vascular calcifications in extremities ,if presenting this symptoms will need vascular referral will hold for now w no complaints Encounter for preventive health examination 08/04/2023 08/05/2023 Assessment & Plan (08/04/2023 4:06 PM EDT): Discussed with patient re increase fresh fruit and vegetable intake. Counseled re moderate exercise as tolerated, up to 20min/d Patient feels safe at home. PAP smear: UTD. 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 I also recommended covid bivalent booster at A retail pharmacy. Other adult Izs are uptodate Dental visit: UTD, next one due on 01/2024 Preoperative examination 07/03/2023 Assessment & Plan (07/03/2023 9:38 AM EDT): RCRI score 1, 6% risk Procedure should go on as schedule I instructed patient NPO after midnight the day of the procedure I explain she needs to take hr blood pressure medication the morning of the procedure with small sip of water I explain she should get her insulin Lantus (long acting) half of the dose the night before the procedure (in this case 15U) and skip the morning dose of Novolog (short acting) insuline Patient is not on blood thinners 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 FU w PCP Hyperkalemia 04/22/2021 12/02/2023 Encounters Date Type Department Care Team Description 01/10/2025 11:00 AM EST Office Visit [facility] [address] [place] [phone] Hazel Kilgore MD Diarrhea, unspecified type (Primary Dx); Acute conjunctivitis of right eye, unspecified acute conjunctivitis type; Primary hypertension; Type 2 diabetes mellitus with other specified complication, with long-term current use of insulin (CMS/HCC) 01/10/2025 Travel 01/08/2025 Refill [facility] [address] [place] [address] Hazel Kilgore MD Primary hypertension 12/19/2024 Telephone [facility] [address] [place] [phone] Hazel Kilgore MD [employer] (Pad, 1 Pad prevail, Surcr cardinal protect LG) 12/16/2024 Telephone [facility] [address] [place] [address] Hazel Kilgore MD Durable Medical Equipment (Incont supplies) 12/09/2024 Refill [facility] [address] [place] [address] Hazel Kilgore MD Iron deficiency 12/07/2024 Refill [facility] [address] [place] [phone] Hazel Kilgore MD Type 2 diabetes mellitus with other specified complication, with long-term current use of insulin (CMS/HCC); Renal osteodystrophy; Gastroesophageal reflux disease, unspecified whether esophagitis present 12/04/2024 Refill [facility] [address] [place] [address] Hazel Kilgore MD Constipation, unspecified constipation type 11/21/2024 10:45 AM EST Office Visit [facility] [address] [place] [phone] Hazel Kilgore MD Chronic kidney disease (CKD) stage G3a/A1, moderately decreased glomerular filtration rate (GFR) between 45-59 mL/min/1.73 square meter and albuminuria creatinine ratio less than 30 mg/g ([facility]) (Primary Dx); Open-angle glaucoma, unspecified glaucoma stage, unspecified laterality, unspecified open-angle glaucoma type; Stage 3b chronic kidney disease (CMS/HCC); Chronic bronchitis, unspecified chronic bronchitis type (CMS/HCC); Atrial fibrillation with RVR (CMS/[facility]); Dietary counseling; Exercise counseling; Class 1 obesity due to excess calories with serious comorbidity and body mass index (BMI) of 32.0 to 32.9 in adult; Encounter for immunization; Bilateral impacted cerumen; Constipation, unspecified constipation type; Hyperlipidemia, unspecified hyperlipidemia type; Primary hypertension; Type 2 diabetes mellitus with other specified complication, with long-term current use of insulin ([facility]); Anemia of chronic renal failure, unspecified CKD stage; Back pain, unspecified back location, unspecified back pain laterality, unspecified chronicity; Frail elderly; Other specified health status 11/21/2024 Travel 11/11/2024 Refill [facility] [address] [place] [address] Hazel Kilgore MD Iron deficiency from Last 3 Months Immunizations Name Administration Dates Next Due Hep B, adult 09/22/2014,10/19/2009,09/17/2009 Influenza High-dose Quadriva lent Preservative Free 08/12/2023,08/25/2022,08/02/2020 Influenza injectable quadriv alent IIV4 with preservative 08/27/2016 Influenza injectable quadriv alent preservative free 09/19/2021,09/12/2015 Influenza, High Dose Seasona l, Preservative Free 11/21/2024,01/19/2020,08/05/2018,07/27 Influenza, IIV3, injectable 09/22/2014, 1 Influenza, Split (incl. adarsh fied surface antigen) 07/20/2013,07/08/2012 MMR 09/17/2009 Pfizer Covid-19 Vaccine 12+ 11/21/2024, 4 Pneumococcal Conjugate PCV 13 09/12/2015 Pneumococcal Polysaccharide PPSV23 05/04/2014,,10/21/2006 RSV Bivalent 07/21/2024 TD (adult), 2 Lf tetanus tox oid, preservative free, adsorbed 08/25/2022,03/09/2019,09/17/2009 Tdap 07/08/2012 Zoster, Recombinant 03/28/2022,01/17/2022 Zoster, live 09/22/2014 Social History Tobacco Use Types Packs/Day Years Used Date Smoking Tobacco: Never Passive Smoke Exposure: Never Smokeless Tobacco: Never Tobacco Cessation:Counseling Given: Not Answered Alcohol Use Standard Drinks/Week Comments Never 0 [...] Orientation Straight 09/08/2022 10 :19 AM EDT Last Filed Vital Signs Vital Sign Reading [...] 12.8 oz) 025 11:03 AM EST Height 157.5 cm (5' 2 ) 11/21/2024 10:3 4 AM EST Body Mass Index 31.24 11/21/2024 10:34 AM EST Plan of Treatment Upcoming Encounters Date Type Department Care Team (Late st Contact Info) Description 01/20/2025 11:30 AM EDT Telemedicine [facility] [address] [place] [address] Hazel Kilgore MD [address] [place] [address] Health Maintenance Due Date Last Done Comments SDOH Screening 02/16/2025 02/17/2024 Diabetes: Hemoglobin A1C 04/12/2025 025, 11/21/2024, 07/21/2024, Additional history exists Alcohol/Substance Use Screening 11/21/2025 11/21/2024 Depression Screening 11/21/2025 11/21/2024, 11/21/19 25 Diabetes: Foot Exam 11/21/2025 11/21/2024, 11/21/2024, 11/21/2024, Additional history exists Lipid Panel 01/10/2026 01/10/2025, 07/10, 08/13/2023, Additional history exists Tobacco Screening 01/10/2026 01/10/2025 Eye Exam 04/22/2026 04/22/2024, 11/30/2013 DTaP/Tdap/Td Vaccines (4 - Td or Tdap) 08/25/2032 08/25/2022, 03/09/2019, 07/08/2012, Additional history exists Hepatitis B Vaccines Completed 09/22/2014, 10/19/2009, 09/17/2009 Pneumococcal Vaccine: 50+ Years Completed 09/12/2015, 05/04/2014, 01/02/2012, Additional history exists Zoster Vaccines Completed 03/28/2022, 01/07, 09/22/2014 RSV Patients and Patients Aged 60 years or older Completed 07/21/2024 COVID-19 Vaccine Completed 11/21/2024, , 09/19/2021, Additional history exists Influenza Vaccine Completed 11/21/2024, , 08/25/2022, Additional history exists HIB Vaccines Aged Out No longer eligi [...] patient's age to complete this topic Meningococcal Vaccine Aged Out No maximilian elvi eligible based on patient's age to complete this topic RSV under 20 months Aged Out No longe r eligible based on patient's age to complete this topic Rotavirus Vaccines Aged Out No longer eligible based on patient's age to complete this topic Procedures Procedure Name Priority Date/Time Associated Diagnosis Comments TSH W/REFLEX TO FT4 Routine 01/10/2025 1 1:39 AM EST Diarrhea, unspecified type CBC WITH AUTO DIFFERENTIAL Routine 01/10/2025 11:39 AM EST Diarrhea, unspecified type BASIC METABOLIC PANEL Routine 01/10/2025 11:39 AM EST Diarrhea, unspecified type Type 2 diabetes mellitus with other specified complication, with long-term current use of insulin (CMS/HCC) HEMOGLOBIN A1C Routine 01/10/2025 11:39 AM EST Type 2 diabetes mellitus with other specified complication, with long-term current use of insulin (CMS/HCC) LIPID PANEL, STANDARD Routine 01/10/2025 11:39 AM EST Type 2 diabetes mellitus with other specified complication, with long-term current use of insulin (CMS/HCC) HEPATIC FUNCTION PANEL Routine 11:39 AM EST Diarrhea, unspecified type Type 2 diabetes mellitus with other specified complication, with long-term current use of insulin (CMS/HCC) ALBUMIN, RANDOM URINE W/CREATININE Routine 01/10/2025 11:39 AM EST Diarrhea, unspecified type Type 2 diabetes mellitus with other specified complication, with long-term current use of insulin (CMS/HCC) POCT INFLUENZA B Routine 01/10/2025 11:1 6 AM EST Diarrhea, unspecified type POCT INFLUENZA A Routine 01/10/2025 11:1 6 AM EST Diarrhea, unspecified type POCT RAPID COVID ANTIGEN Routine 01/10/2025 11:05 AM EST Diarrhea, unspecified type POCT GLUCOSE Routine 11/21/2024 10:42 AM EST Open-angle glaucoma, unspecified glaucoma stage, unspecified laterality, unspecified open-angle glaucoma type POCT GLYCOSYLATED HEMOGLOBIN (HGB A1C) Routine 11/21/2024 10:40 AM EST Open-angle glaucoma, unspecified glaucoma stage, unspecified laterality, unspecified open-angle glaucoma type BI MAMMOGRAM SCREENING TOMOSYNTHESIS BILATERAL Routine 10/27/2024 11:15 AM EST HM DIABETES EYE EXAM Routine 04/22/2024 3:23 PM EDT from Last 3 Months or Most Recently Relevant to Health Maintenance Results * TSH W/Reflex to FT4 (01/10/2025 11:39 AM EST) TSH reflex Free T4 1.88 0.32 - 4.0 uIU/mL [facility] Blood Venous blood specimen / Unknown 01/10/2025 11:39 AM EST 01/10/2025 1:12 PM EST us Hazel Kilgore MD LAB BLOOD ORDERABLES Final Result [facility] [address] [place] [address] [phone] * Albumin, Random Urine W/Creatinine (01/10/2025 11:39 AM EST) Creatinine, Urine 85.67 mg/dL [facility] Microalbumin Urine 12.0 mg/L [facility] Microalbum Creatinine Ratio Ur 14.0 <30 ug/mg cr [facility] Comment:Albumin/Creatinine R atio Reference Ranges: Normal: < 30 ug/mg creatinine Microalbuminuria: 30 - 300 ug/mg creatinineClinical Albuminuria: > 300 ug/mg creatinine Urine 01/10/2025 11:3 9 AM EST 01/10/2025 1:12 PM EST Hazel Kilgore MD LAB URINE ORDERABLES Final Result Performing Organization Address City/State/[facility] Co de Phone Number [facility] [address] [place] [phone] * (ABNORMAL) CBC auto differential (01/10/2025 11:39 AM EST) White Blood Count 6.8 4.8 - 10.8 X10*3/uL [facility] Red Blood Count 5.10 4.20 - 5.50 X10*6/uL [facility] Hemoglobin 12.1 12.0 - 16.0 g/dl [facility] Hematocrit 41.3 37.0 - 47.0 % [facility] Mean Corpuscular Volume 81.0 80.0 - 98.0 fL [facility] Mean Corpuscular Hemoglobin 23.7(L) 27.0 - 33.0 pg [facility] Mean Corpuscular HGB Conc 29.3(L) 31.0 - 35.0 g/dl [facility] Red Cell Distribution Width 16.4(H) 11.0 - 16.0 % [facility] Platelet Count 163 160 - 400 X10*3/uL [facility] Mean Platelet Volume 12.2 9.4 - 12.3 fL [facility] Neutrophils Percent Auto 67.5 45 - 73 % [facility] Imm Gran Pct Auto 0.3 0.0 - 0.4 % [facility] Lymphocytes Percent Auto 21.6 20 - 40 % [facility] Monocytes Percent Auto 8.9 2 - 11 % [facility] Eosinophils Percent Auto 1.6 0 - 4 % [facility] Basophils Percent Auto 0.1 0 - 2 % [facility] NRBC Pct Auto 0.0 0.0 - 0.2 /100WBC [facility] Neutrophils Absolute Auto 4.6 2.0 - 8.3 x10*3/uL [facility] Imm Gran Abs Auto 0.02 0.00 - 0.03 X10*3/uL [facility] Lymphocytes Absolute Auto 1.5 1.2 - 4.9 X10*3/uL [facility] Monocytes Absolute Auto 0.6 0.1 - 1.2 X10*3/uL [facility] Eosinophils Absolute Auto 0.1 0.0 - 0.4 X10*3/uL [facility] Basophils Absolute Auto 0.0 0.0 - 0.2 X10*3/uL [facility] NRBC Abs Auto 0.000 0.0 - 0.012 X10*3/uL [facility] Blood Venous blood specimen / Unknown 01/10/2025 11:39 AM EST 01/10/2025 1:11 PM EST us Hazel Kilgore MD LAB BLOOD ORDERABLES Final Result [facility] [address] [place] [address] [phone] * (ABNORMAL) Hemoglobin A1c (01/10/2025 11:39 AM EST) Hemoglobin A1c 7.6(H) <6.0 % [facility] Comment:Hemoglobin A1C Refer ence Range Adults: 4.8 - 6.0 % Non diabetic: < 6.0 % Goal: < 7.0 %Additional Action Suggested: > 8.0 %Note: Hemoglobin A1c results are invalid for patients with abnormal amounts of HbF. Blood transfusions may impact the HbA1c concentration in the patient sample. Estimated Average Glucose 171 mg/dL [facility] Comment:eAG = Estimated ave rage glucose which is %A1C expressed asaverage glucose, using the formula of the D9L-JnatokjLwevlew Glucose study (ADAG), Diabetes Care, Vol.31,#8,2007 Blood Venous blood specimen / Unknown 01/10/2025 11:39 AM EST 01/10/2025 1:12 PM EST Hazel Kilgore MD LAB BLOOD ORDERABLES Final Result Performing Organization Address [facility] Co ak Phone Number [facility] [address] [place] [phone] * (ABNORMAL) Hepatic Function Panel (01/10/2025 11:39 AM EST) Bilirubin, Total 0.4 0.0 - 1.0 mg/dL [facility] Bilirubin, Direct 0.2 0.0 - 0.5 mg/dL [facility] Aspartate Amino Transferase 33(H) 5 - 31 U/L [facility] Alanine Aminotransferase 43(H) 0 - 31 U/L [facility] Total Protein 7.3 6.5 - 8.0 g/dL [facility] Albumin Level 3.7 3.5 - 5.0 g/dL [facility] Alkaline Phosphatase 66 39 - 117 U/L [facility] Blood Venous blood specimen / Unknown 01/10/2025 11:39 AM EST 01/10/2025 1:12 PM EST Hazel Kilgore MD LAB BLOOD ORDERABLES Final Result Performing Organization Address [facility] Co ak Phone Number [facility] [address] [place] [phone] * Lipid Panel, Standard (01/10/2025 11:39 AM EST) Triglycerides 81 <150 mg/dL [facility] Comment:Desirable Triglyceri de: less than 150 mg/dLBorderline High Triglyceride 150-199 mg/dLHigh Triglyceride: 200-499 mg/dLVery High Triglyceride: greater than or equal to 5OO mg/dL Cholesterol 133 <200 mg/dL [facility] Comment:Desirable Cholestero l: less than 200 mg/dLBorderline High Cholesterol: 200-239 mg/dLHigh Cholesterol: greater than 239 mg/dL LDL Cholesterol Calculated 70 <100 mg/dL [facility] Comment:Desirable LDL: less than 100 mg/dLNear Optimal/Above Optimal LDL: 110- 129 mg/dLBorderline High LDL: 130-159 mg/dLHigh LDL: 160-189 mg/dLVery High LDL: greater than or equal to 190 mg/dL HDL Cholesterol 47 >40 mg/dL [facility] Comment:Desirable HDL: great er than 40 mg/dL Note: This HDL assay may give artificially low results in patients with liver disease. Blood Venous blood specimen / Unknown 01/10/2025 11:39 AM EST 01/10/2025 1:12 PM EST Hazel Kilgore MD LAB BLOOD ORDERABLES Final Result [facility] [address] [place] [address] [phone] * (ABNORMAL) Basic Metabolic Panel (01/10/2025 11:39 AM EST) Sodium 142 135 - 145 mmol/L [facility] Potassium 4.7 3.3 - 5.1 mmol/L [facility] Chloride 104 96 - 108 mmol/L [facility] Carbon Dioxide 32(H) 22 - 29 mmol/L [facility] Anion Gap 11(L) 12 - 20 [facility] Urea Nitrogen (BUN) 26(H) 9 - 16 mg/dL [facility] Creatinine, Serum 1.18 0.5 - 1.4 mg/dL [facility] Estimated Glomerular Filt Rate 44 [facility] Comment:Chronic Kidney Disea se: Estimated GFR < 60 mL/min/1.09m8Hxxwth Kidney Disease: Estimated GFR < 15 mL/min/1.73m2 Glucose 186(H) 60 - 115 mg/dL [facility] Calcium 9.5 8.4 - 10.2 mg/dL [facility] Blood Venous blood specimen / Unknown 01/10/2025 11:39 AM EST 01/10/2025 1:12 PM EST Hazel Kilgore MD LAB BLOOD ORDERABLES Final Result [facility] [address] [place] [address] [phone] * POCT Influenza B manually resulted (01/10/2025 11:16 AM EST) [facility] Rapid Influenza B Ag Negative Negative, Indeterminate QC Media Lot # [id number] Lot# Expiration Date Swab 01/10/2025 11:1 6 AM EST Hazel Kilgore MD POINT OF CARE TEST ENTER/E DIT ORDERABLES Final Result * POCT Influenza A manually resulted (01/10/2025 11:16 AM EST) [facility] Rapid Influenza A Ag Negative Negative, Indeterminate QC Media Lot # [id number] Lot# Expiration Date Swab Nasopharyngeal structure / Unknown 01/10/2025 11:16 AM EST Hazel Kilgore MD POINT OF CARE TEST ENTER/E DIT ORDERABLES Final Result * POCT Rapid COVID Ag (01/10/2025 11:05 AM EST) [facility] Rapid COVID Ag Negative QC Media Lot # [id number] Lot# Expiration Date Swab 01/10/2025 11:0 5 AM EST Hazel Kilgore MD POINT OF CARE TEST ENTER/E DIT ORDERABLES Final Result * (ABNORMAL) POCT glucose manually resulted (11/21/2024 10:42 AM EST) [facility] Glucose Blood, POC 253(A) 60 - 200 mg/dL QC Media Lot # [id number] Lot# Expiration Date ,282 Blood Capillary blood specimen / Unknown 11/21/2024 10:42 AM EST Hazel Kilgore MD POINT OF CARE TEST ENTER/E DIT ORDERABLES Final Result * (ABNORMAL) POCT glycosylated hemoglobin (Hgb A1c) (11/21/2024 10:40 AM EST) Hemoglobin A1C 8.5(A) 4.0 - 6.0 % QC Media Lot # [id number] Lot# Expiration Date Blood Capillary blood specimen / Unknown 11/21/2024 10:40 AM EST Hazel Kilgore MD POINT OF CARE TEST ENTER/E DIT ORDERABLES Final Result * BI Mammogram Screening Tomosynthesis Bilateral (10/27/2024 11:15 AM EST) Anatomical Region Laterality Modality Breast Bilateral Mammography 10/27/2024 11:1 5 AM EST Narrative 11/08/2024 12:04 PM EST ? [facility] ? [address] ?[place] [address] ? Mammography Report ? Signed ? Patient: Mary Giles ?MR#: ?? [id number] ? : 1945 ?Acct:[id number] ? Age/Sex: 79 / F ?ADM Date: 12/19/24 ? Loc: HO.MAMMO ? Attending Dr: Hazel Kilgore MD ? Ordering Physician: Hazel Kilgroe MD ?Results: 1N ?? egative ? Date of Service: 12/19/24 ?Follow Up: 1 Year From Orig ?? inal Mammogram ? Procedure(s): MM tomosynthesis screening BI ?? Accession Number(s): [id number] ? cc: Hazel Kilgore MD ? EXAMINATION: ?? MM SCREENING DIGITAL BREAST TOMOSYNTHESIS, BILATERAL ? CLINICAL INFORMATION: ? Screening. Asymptomatic. ? COMPARISON: ?? Mammography: Comparison is made with available priors ? TECHNIQUE: ?? Digital breast mammography with tomosynthesis is performed in both the ?? craniocaudal and mediolateral oblique views along with computer-aided ?? detection (CAD). ? FINDINGS: ?? There are scattered areas of fibroglandular density (ACR BI-RADS breast ?? composition Category b). ? There are no significant masses, abnormal calcifications, or other ?? abnormalities. ? MM/MM tomosynthesis screening BI ?? IMPRESSION: ?? No mammographic evidence of malignancy. ? ASSESSMENT: ? BI-RADS BI-RADS 1 - Negative ? RECOMMENDATION: ?? Routine annual mammography screening. ? 1 year F/U ? This examination should not preclude the clinical evaluation of a ?? suspicious palpable abnormality. ? This patient's information was entered into a reminder system with a ?? target due date for their next mammogram. ? Electronically signed by: ??Rachna Seals DO ??11/08/2024 12:02 PM EST ?? RP ? Dictated By: ?Rachna Seals DO ? Signed By: ?<Electronically signed by Rachna Seals, DO in OV> ? 11/08/24 1202 ? DD/ 1115 ? TD/TT: 10/27/24 1150 ? Revenue Cycle Analyst: ? Procedure Note Laura, Image - 11/08/2024 [place] [facility] [address] [place], [place] [address] Mammography Report Signed Patient: Gaetano Giles#: [id number] : 1945Acct:[id number] Age/Sex: 79 / FADM Date: 10/27/24 Loc: HO.MAMMO Attending Dr: Hazel Kilgore MD Ordering Physician: Hazel Kilgore MDResults: 1N egative Date of Service: 10/27/24Follow Up: 1 Year From Orig inal Mammogram Procedure(s): MM tomosynthesis screening BI Accession Number(s): [id number] cc: Hazel Kilgore MD EXAMINATION: MM SCREENING DIGITAL BREAST TOMOSYNTHESIS, BILATERAL CLINICAL INFORMATION: Screening. Asymptomatic. COMPARISON: Mammography: Comparison is made with available priors TECHNIQUE: Digital breast mammography with tomosynthesis is performed in both the craniocaudal and mediolateral oblique views along with computer-aided detection (CAD). FINDINGS: There are scattered areas of fibroglandular density (ACR BI-RADS breast composition Category b). There are no significant masses, abnormal calcifications, or other abnormalities. MM/MM tomosynthesis screening BI IMPRESSION: No mammographic evidence of malignancy. ASSESSMENT: BI-RADS BI-RADS 1 - Negative RECOMMENDATION: Routine annual mammography screening. 1 year F/U This examination should not preclude the clinical evaluation of a suspicious palpable abnormality. This patient's information was entered into a reminder system with a target due date for their next mammogram. Electronically signed by: Rachna Seals DO 11/08/2024 12:02 PM [facility] Dictated By: Rachna Seals DO Signed By: <Electronically signed by Rachna Seals DO in OV> 11/08/24 1202 DD/ 1115 TD/TT: 10/27/24 1150 Revenue Cycle Analyst: Hazel Kilgore MD IMG BI PROCEDURES Edited R esult - Final * Hm Diabetes Eye Exam (04/22/2024 3:23 PM EDT) Eye Exam Normal Normal Comment:follow up one year Historical Provider HEALTH MAINTENANCE Final Result from Last 3 Months or Most Recently Relevant to Health Maintenance Insurance [facility] Advance Directives Documents on File Type Date Recorded Patient Vamper Expl anation Advance Directives and Livin g Will 12/15/2023 Health Care Proxy Care Teams Label Sewer Relationship Specialty Start Date End Date Dorado, MD Hazel [address] [place] [address] PCP - General Family Medicine 11/09/18 Tee Shay MD [address] [facility] [address] [place] [phone] Nephrology 11/07/24 Nia Borja [address] [facility] [address] [place] [address] Cardiology 11/07/24 Mary Ann Matthew [place] [facility] Endocrinology [address] [facility] Endocrinology 10/14/24 Derrick Mullen, DPVannesa [address] [place] [phone] Podiatry 11/07/24
--- OUTSIDE RECORDS SUMMARY | 2025-01-10 14:47 | XMS_ITS | Encounter Summary ---
Author Organization [employer] Address 75 [facility] 7t [place] [address] Care Team Providers Care Welder Production Line Combination Name Role Phone Magui, Hazel FELIPE Primary Care Provider [phone]- [phone] Tee Shay MD Unavailable [phone] Nia Borja Unavailable Reason for Visit * Reason Comments Med Refill Encounter Details Date Type Department Care Team ([facility] st Contact Info) Description 09/15/2024 Refill [facility] MEDICINE 230 [place] [address] Calli Trevizo MD 230 [place] [address] Gastroesophageal reflux disease, unspecified whether esophagitis present Social History Tobacco Use Types Packs/Day Years [...] Info) Description 01/20/2025 11:30 AM EDT Telemedicine [facility] MEDICINE 230 [place] [address] Hazel Kilgore MD 230 [place] [address] documented as of this encounter Visit Diagnoses Diagnosis Gastroesophageal reflux disease, unspecified whether esophagitis present documented in this encounter Additional Health Concerns Assessment Noted Time PHQ-9 Depression Total Score: 0 07/03/20 23 9:07 AM EDT documented as of this encounter Care Teams Welder Production Line Combination Relationship Specialty Start Date End Date Hazel Kilgore MD 230 [place] [address] PCP - General Family Medicine 11/09/18 Tee Shay MD [address] [place] [place] [address] Nephrology 11/07/24 Nia Borja 3300 [facility] [address]LO[address] [place] [address] Cardiology 11/07/24 Mary Ann Matthew MA [facility] Endocrinology 3300 [facility] Endocrinology 10/14/24 Derrick Mullen, DPVannesa 175 [place] [address] Podiatry 11/07/24 documented as of this encounter
== END 2025-01-10 11:37 | disposition home or self-care (01) ==
LOC: HO.HHCL 11:36
PROVIDERS: Visit Provider Family Medicine
DX: R19.7 Diarrhea, unspecified (principal); Z79.4 Long term (current) use of insulin; E11.69 Type 2 diabetes mellitus with other specified complication
CPT/HCPCS: 36415; 80048; 80061; 80076; 82043; 82570; 83036; 84443; 85025

== ENCOUNTER 2025-01-12 13:54 | Outpatient (REF) | payer OTHER, SELFPAY ==
--- OUTSIDE RECORDS SUMMARY | 2025-01-12 17:01 | XMS_ITS | Encounter Summary ---
Author Organization [employer] [facility] Address 75 [facility] 7t [place] [address] Care Team Providers Care Musician Instrumental Name Role Phone Hazel Kilgore MD Primary Care Provider Tee Shay MD Unavailable [phone] Nia Borja Unavailable [phone] Encounter Details Date Type Department Care Team (Late st Contact Info) Description 10/30/2022 Orders Only [facility] [address] [place] [address] Renata Lerner LPN Social History Tobacco Use [...] Info) Description 01/20/2025 11:30 AM EDT Telemedicine [facility] MEDICINE 230 [place] [address] Hazel Kilgore MD 230 [place], [place] [phone] documented as of this encounter Visit Diagnoses Not on filedocumented in this encounter Care Teams Musician Instrumental Relationship Specialty Start Date End Date Hazel Kilgore MD [address] [place] [id number] PCP - General Family Medicine 11/09/18 Tee Shay MD [address] [place] [place] [address] Nephrology 11/07/24 Nia Borja [address] [place] [address] Cardiology 11/07/24 Mary Ann Matthew MA [facility] Endocrinology 3300 [facility] Endocrinology 10/14/24 Derrick Mullen, DPVannesa 175 [place] [address] Podiatry 11/07/24 documented as of this encounter
--- OUTSIDE RECORDS SUMMARY | 2025-01-12 17:01 | XMS_ITS | Encounter Summary ---
Author Organization [facility] Address [address] [address] Phone Care Team Providers Care Lapidarist Name Role Phone Hazel Kilgore MD Primary Care Provider Gabriel hayden Encounter Details Date Type Department Care Team (Late st Contact Info) Description 12/19/2024 4:15 PM EST Telemedicine [facility] [address] [facility] [place] [address] Tee Shay MD [address] [address] Social History Tobacco Use Types [...] on filedocumented in this encounter Care Teams Lapidarist Relationship Specialty Start Date End Date Hazel Kilgore MD [address] [place] [address] PCP - General 11/19/20 documented as of this encounter
--- OUTSIDE RECORDS SUMMARY | 2025-01-12 17:02 | XMS_ITS | Encounter Summary ---
Author Organization [employer] Address 75 [facility] 7t [place] [address] Care Team Providers Care District Medical Examiner Name Role Phone Hazel Kilgore MD Primary Care Provider [phone]- [phone] Tee Shay MD Unavailable [phone] Nia Borja Unavailable [phone] Reason for Visit * Reason Onset Date Comments Med Refill 06/20/2024 Encounter Details Date Type Department Care Team (Late st Contact Info) Description 06/20/2024 Telephone [facility] MEDICINE 230 [place], [place] [phone] Hazel Kilgore MD 230 [place], [place] [phone] Med Refill Social History Tobacco Use Types [...] MG DR capsule To be sent to: [facility] - [place], [place] - [address] [place] [address] documented in this encounter Plan of Treatment Upcoming Encounters Date Type Department Care Team (Late st Contact Info) Description 01/20/2025 11:30 AM EDT Telemedicine [facility] MEDICINE 230 [place] [address] Hazel Kilgore MD 230 [place] [address] documented as of this encounter Visit Diagnoses Not on filedocumented in this encounter Additional Health Concerns Assessment Noted Time PHQ-9 Depression Total Score: 0 07/03/20 23 9:07 AM EDT documented as of this encounter Care Teams District Medical Examiner Relationship Specialty Start Date End Date [place], Hazel, MD 230 [place] [address] PCP - General Family Medicine 11/09/18 Tee Shay MD [address] [place] [place] [address] Nephrology 11/07/24 Nia Borja 3300 [facility] [address] [place] [address] Cardiology 11/07/24 Mary Ann Matthew MA [facility] Endocrinology [address] [facility] Endocrinology 10/14/24 Derrick Mullen, DPM 175 [place] [address] Podiatry 11/07/24 documented as of this encounter
--- OUTSIDE RECORDS SUMMARY | 2025-01-12 17:02 | XMS_ITS | Encounter Summary ---
Author Organization [facility] Address 3550 [facility] 204 [place] [address] Phone Care Team Providers Care Fabric And Textile Factory Worker Name Role Phone Hazel Kilgore MD Primary Care Provider U catracho Encounter Details Date Type Department Care Team (Late st Contact Info) Description 09/15/2024 Office Communication [facility] 3550 [facility] 204 [place] [address] Tee Shay MD [address] [address] Social History Tobacco Use Types [...] on filedocumented in this encounter Care Teams Fabric And Textile Factory Worker Relationship Specialty Start Date End Date Hazel Kilgore MD [address] [place] [address] PCP - General 11/19/20 documented as of this encounter
--- OUTSIDE RECORDS SUMMARY | 2025-01-12 17:02 | XMS_ITS | Encounter Summary ---
Author Organization [facility] Address 75 [facility] 7t [place] [address] Care Team Providers Care Weight Shifter Name Role Phone Hazel Kilgore MD Primary Care Provider [phone] Tee Shay MD Unavailable [phone] JonhNia Unavailable [phone] Encounter Details Date Type Department Care Team (Latest Contact Info) Description 07/28/2019 Abstract [facility] CON[facility] Dental, Provider, DDS Social History Tobacco [...] AM EDT Telemedicine [facility] MEDICINE 230 [place] [address] Hazel Kilgore MD 230 [place] [address] documented as of this encounter Visit Diagnoses Not on filedocumented in this encounter Care Teams Weight Shifter Relationship Specialty Start Date End Date Hazel Kilgore MD 230 [place] [address] PCP - General Family Medicine 11/09/18 Tee Shay MD [address] [place] [address] Nephrology 11/07/24 Nia Borja 3300 [facility] [address]ND [address]LOOR [address] [place] [address] Cardiology 11/07/24 Mary Ann Matthew MA [facility] Endocrinology [address] [place] [address] Endocrinology 10/14/24 Derrick Mullen, DPVannesa 175 [place] [address] Podiatry 11/07/24 documented as of this encounter
--- OUTSIDE RECORDS SUMMARY | 2025-01-12 17:02 | XMS_ITS | Encounter Summary ---
Author Organization [employer] Address [address] [facility] [address] 7[address] [place] [address] Care Team Providers Care Head Custodian Name Role Phone Hazel Kilgore MD Primary Care Provider [phone]- [phone] Tee Shay MD Unavailable [phone] Nia Borja Unavailable Encounter Details Date Type [...] Info) Description 01/20/2025 11:30 AM EDT Telemedicine [facility] MEDICINE 230 [place] [address] Hazel Kilgore MD 230 [place] [address] documented as of this encounter Visit Diagnoses Not on filedocumented in this encounter Additional Health Concerns Assessment Noted Time PHQ-9 Depression Total Score: 0 11/21/19 25 10:37 AM EST documented as of this encounter Care Teams Head Custodian Relationship Specialty Start Date End Date Hazel Kilgore MD 230 [place] [address] PCP - General Family Medicine 11/09/18 Tee Shay MD [address] [place] [address] Nephrology 11/07/24 Nia Borja 3300 [facility] [address] [place] [address] Cardiology 11/07/24 Mary Ann Matthew MA [facility] Endocrinology 3300 [facility] Endocrinology 10/14/24 Derrick Mullen, DPM 175 [place] [address] Podiatry 11/07/24 documented as of this encounter
--- OUTSIDE RECORDS SUMMARY | 2025-01-12 17:02 | XMS_ITS | Encounter Summary ---
Author Organization [employer] Address 75 [facility] 7t [place] [address] Care Team Providers Care Ballistics Expert Forensic Name Role Phone Hazel Kilgore MD Primary Care Provider [phone]- [phone] Tee Shay MD Unavailable [phone] Nia Borja Unavailable [phone] Encounter Details Date Type Department Care Team (Late st Contact Info) Description 03/19/2023 Orders Only [facility] CHC MED & PEDS [address] [place] [address] Amaya Garcia LPN Social History Tobacco Use [...] Info) Description 01/20/2025 11:30 AM EDT Telemedicine [facility] MEDICINE 230 [place] [address] Hazel Kilgore MD 230 [place], [place] [phone] documented as of this encounter Visit Diagnoses Not on filedocumented in this encounter Care Teams Ballistics Expert Forensic Relationship Specialty Start Date End Date Hazel Kilgore MD 230 [place], [place] [phone] PCP - General Family Medicine 11/09/18 Tee Shay MD [address] [place] [address] Nephrology 11/07/24 Nia Borja [address] [place] [address] Cardiology 11/07/24 Mary Ann Matthew MA [facility] Endocrinology 3300 [facility] Endocrinology 10/14/24 Derrick Mullen, MADIHA 175 [place] [address] Podiatry 11/07/24 documented as of this encounter
--- OUTSIDE RECORDS SUMMARY | 2025-01-12 17:02 | XMS_ITS | Encounter Summary ---
Author Organization [employer] Address [address] [facility] [address] 7t [place] [address] Care Team Providers Care Crank Hand Name Role Phone Hazel Kilgore MD Primary Care Provider [phone]- [phone] Tee Shay MD Unavailable [phone] Nia Borja Unavailable [phone] Reason for Visit * Reason Comments Med Refill Encounter Details Date Type Department Care Team ([facility] st Contact Info) Description 01/08/2025 Refill [facility] CHC MED & PEDS [address] [place], [place] [phone] Hazel Kilgore MD 230 [place] [address] Primary hypertension Social History Tobacco Use Types [...] 01/20/2025 11:30 AM EDT Telemedicine [facility] MEDICINE 230 [place] [address] Hzael Kilgore MD 230 [place] [address] documented as of this encounter Visit Diagnoses Diagnosis Primary hypertension Unspecified essential hypertension documented in this encounter Additional Health Concerns Assessment Noted Time PHQ-9 Depression Total Score: 0 11/21/19 25 10:37 AM EST documented as of this encounter Care Teams Crank Hand Relationship Specialty Start Date End Date Hazel Kilgore MD 230 [place] [address] PCP - General Family Medicine 11/09/18 Tee Shay MD [address] [place] [address] Nephrology 11/07/24 Nia Borja 3300 [facility] [address] [place] [address] Cardiology 11/07/24 Mary Ann Matthew MA [facility] Endocrinology 3300 [facility] Endocrinology 10/14/24 Derrick Mullen, MADIHA [address] [place] [address] Podiatry 11/07/24 documented as of this encounter
--- OUTSIDE RECORDS SUMMARY | 2025-01-12 17:02 | XMS_ITS | Encounter Summary ---
Author Organization [employer] Address 75 [facility] 7t [place] [address] Care Team Providers Care Director Of Partnerships Name Role Phone Hazel Kilgore MD Primary Care Provider [phone]- [phone] Tee Shay MD Unavailable [phone] Nia Borja Unavailable [phone] Reason for Visit * Reason Onset Date Comments Durable Medical Equipment 12/16/2024 Incont supplies Encounter Details Date Type Department Care Team (Late st Contact Info) Description 12/16/2024 Telephone [facility] MEDICINE 230 [place], [place] [phone] Hazel Kilgore MD 230 [place], [place] [phone] Durable Medical Equipment (Incont supplies) Social History [...] Info) Description 01/20/2025 11:30 AM EDT Telemedicine [facility] MEDICINE [address] [place] [address] Hazel Kilgore MD 230 [place] [address] documented as of this encounter Visit Diagnoses Not on filedocumented in this encounter Additional Health Concerns Assessment Noted Time PHQ-9 Depression Total Score: 0 11/21/19 25 10:37 AM EST documented as of this encounter Care Teams Director Of Partnerships Relationship Specialty Start Date End Date Hazel Kilgore MD [address] [place] [address] PCP - General Family Medicine 11/09/18 Tee Shay MD 100 [facility] 200 [place] [address] Nephrology 11/07/24 Nia Borja [address] [place] [address] Cardiology 11/07/24 [facility] 3300 [facility] Endocrinology 10/14/24 Derrick Mullen, DPVannesa 175 [place] [address] Podiatry 11/07/24 documented as of this encounter
--- OUTSIDE RECORDS SUMMARY | 2025-01-12 17:02 | XMS_ITS | Clinical Summary ---
Author Organization [facility] Address [address] [address] Phone Care Team Providers Care Drug And Alcohol Counsellor Name Role Phone Hazel Kilgore MD Primary [...] Telemedicine [facility] [address] [place] [address] Tee Shay MD 12/07/2024 Refill [facility] [address] [place] [address] Tee Shay MD Stage 3b [...] 11/21/2024, , 01/19/2020, Additional history exists Insurance [facility] ([id number]) [facility] ([id number]) Care Teams Drug And Alcohol Counsellor Relationship Specialty Start Date End Date [place], Hazel Soriano MD [address] [place] [address] PCP - General 11/19/20
--- OUTSIDE RECORDS SUMMARY | 2025-01-12 17:02 | XMS_ITS | Encounter Summary ---
Author Organization [email or web address] Address [address] [facility] [address] 7t [place] [address] Care Team Providers Care Box Printing Machine Operator Name Role Phone Magui, Hazel FELIPE Primary Care Provider [phone] Tee Shay MD Unavailable [phone] Nia Borja Unavailable [phone] Reason for Visit * Reason Comments Med Refill Encounter Details Date Type Department Care Team (Late st Contact Info) Description 08/13/2023 Refill [facility] CHC MED & PEDS [address] [place], [place] [phone] Mireya Vasquez MD 230 [place] [address] Social History Tobacco Use Types Packs/Day Years [...] 01/20/2025 11:30 AM EDT Telemedicine [facility] MEDICINE 230 [place] [address] Hazel Kilgore MD 230 [place] [address] documented as of this encounter Visit Diagnoses Not on filedocumented in this encounter Additional Health Concerns Assessment Noted Time PHQ-9 Depression Total Score: 0 07/03/20 23 9:07 AM EDT documented as of this encounter Care Teams Box Printing Machine Operator Relationship Specialty Start Date End Date Hazel Kilgore MD 230 [place] [address] PCP - General Family Medicine 11/09/18 Tee Shay MD [address] [facility] 200 [place] [address] Nephrology 11/07/24 Nia Borja 3300 [facility] [address] [place] [address] Cardiology 11/07/24 Mary Ann Matthew [place] [facility] Endocrinology 3300 [facility] Endocrinology 10/14/24 Derrick Mullen, MADIHA [address] [place] [address] Podiatry 11/07/24 documented as of this encounter
--- OUTSIDE RECORDS SUMMARY | 2025-01-12 17:02 | XMS_ITS | Encounter Summary ---
Author Organization [employer] Address 75 [facility] 7t [place] [address] Care Team Providers Care Self Pay Collector Name Role Phone Magui, Hazel FELIPE Primary Care Provider [phone] Tee Shay MD Unavailable [phone] Nia Borja Unavailable [phone] Reason for Visit * Reason Comments Med Refill Encounter Details Date Type Department Care Team ([facility] st Contact Info) Description 09/15/2024 Refill [facility] MEDICINE 230 [place] [address] Calli Trevizo MD 230 [place] [address] Gastroesophageal reflux disease, unspecified whether esophagitis present [...] Description 01/20/2025 11:30 AM EDT Telemedicine [facility] MEDICINE 230 [place] [address] Hazel Kilgore MD 230 [place] [address] documented as of this encounter Visit Diagnoses Diagnosis Gastroesophageal reflux disease, unspecified whether esophagitis present documented in this encounter Additional Health Concerns Assessment Noted Time PHQ-9 Depression Total Score: 0 07/03/20 23 9:07 AM EDT documented as of this encounter Care Teams Self Pay Collector Relationship Specialty Start Date End Date Hazel Kilgore MD 230 [place] [address] PCP - General Family Medicine 11/09/18 Tee Shay MD [address] [place] [address] Nephrology 11/07/24 Nia Borja 3300 [facility] [address] [place] [address] Cardiology 11/07/24 Mary Ann Matthew [place] [facility] Endocrinology 3300 [facility] Endocrinology 10/14/24 Derrick Mullen, DPVannesa 175 [place] [address] Podiatry 11/07/24 documented as of this encounter
--- OUTSIDE RECORDS SUMMARY | 2025-01-12 17:02 | XMS_ITS | Clinical Summary ---
Author Organization [employer] Address [address] [facility] [address] [place] [address] Care Team Providers Care Insecticide Mixer Name Role Phone Hazel Kilgore MD Primary Care Provider [phone] Tee Shay MD Unavailable [phone] Nia Borja Unavailable [phone] Allergies No known active allergies Medications TRUEplus Lancets 33G miscIndications: Type 2 diabetes mellitus with other specified complication, with long-term current use of insulin ([facility]) TEST BLOOD SUGAR SIX TIMES DAILY 100 each 11 024 Active Ascorbic Acid (vitamin C) 500 MG tabletIndication s:Iron deficiency TAKE 1 TABLET BY MOUTH TWICE DAILY IN THE MORNING AND AT BEDTIME 60 tablet 11 Active rosuvastatin (Crestor) 20 MG tabletIndication s:Type 2 diabetes mellitus with stage 3b chronic kidney disease, with long-term current use of insulin ([facility]),Hyperl ipidemia, unspecified hyperlipidemia type TAKE 1 TABLET BY MOUTH AT BEDTIME 90 tablet 3 024 Active Sure Comfort Pen [place] 31G X 5 MM miscIndications: Type 2 diabetes mellitus with other specified complication, with long-term current use of insulin ([facility]) USE DIRECTED FOUR TIMES DAILY 100 each 11 Active aspirin (Aspirin Low Dose) 81 MG EC tabletIndication s:Atrial fibrillation with RVR ([facility]) Per cardiology Active dapagliflozin (Farxiga) 10 MGIndications:Ty pe 2 diabetes mellitus with stage 3a chronic kidney disease, unspecified whether senior care insulin use ([facility]) Take 1 tablet by mouth. Active doxazosin (Cardura) 4 MG tabletIndication s:Hypertension, unspecified type Take 1.5 tablets by mouth at bedtime. Active insulin glargine (Lantus SoloStar) 100 UNIT/ML penIndications:T ype 2 diabetes mellitus with stage 3a chronic kidney disease, unspecified whether senior care insulin use ([facility]) Inject 30 units subcutaneously daily 15 mL 3 Active insulin aspart (NovoLOG FLEXPEN) 100 UNIT/ML penIndications:T ype 2 diabetes mellitus with stage 3a chronic kidney disease, unspecified whether senior care insulin use ([facility]) Inject 6-7 units tid before meals sc 15 mL Active dulaglutide (Trulicity) 3 MG/0.5ML solution pen-injectorIndi cations:Type 2 diabetes mellitus with stage 3a chronic kidney disease, unspecified whether senior care insulin use ([facility]) Inject 3 mg under the skin 1 [...] tabletIndication s:Hypertension, unspecified type,Atrial fibrillation with RVR ([facility]) Take 1 tablet (25 mg) by mouth Once per day. 90 tablet 3 Active LORazepam (Ativan) 0.5 MG tabletIndication s:Tremor Take by mouth. From neruology Active gabapentin (Neurontin) 600 MG tabletIndication s:Neuropathy Take by mouth. Per specialist tid Active FREESTYLE LITE test stripIndications :Type 2 diabetes mellitus with stage 3a chronic kidney disease, unspecified whether senior care insulin use ([facility]) Use bid prn 150 strip 11 Active furosemide (Lasix) 40 MG tabletIndication s:Hypertension, unspecified type Take by mouth. Per nephrology Active fluticasone (Flovent HFA) 110 MCG/ACT inhalerIndicatio ns:Type 2 diabetes mellitus with stage 3a chronic kidney disease, unspecified whether senior care insulin use ([facility]),Chroni c bronchitis, unspecified chronic bronchitis type ([facility]) Rinse mouth with water after use to reduce aftertaste and incidence of candidiasis. Do not swallow. 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 Per endocrinology 2024 Discontinued(M ed list cleanup (will not trigger notification to Pharmacy)) isosorbide mononitrate ER (Imdur) 30 MG 24 hr tabletIndication s:Primary hypertension TAKE 1 TABLET BY MOUTH EVERY MORNING 90 tablet 1 024 2024 Discontinued Active Problems Patient Care Coordination No te Formatting of this note migh t be different from the original. [facility] Forestry Engineer: [facility] member services number [phone], provider services line, , option 4 Desktop Administrator Agency: [facility], [facility] Problem Noted Date Diagnosed Date Diarrhea [...] She will be set up with a court monitor to evaluate for atrial fibrillation burden. -Echocardiogram with Evita Sevilla MD : The left ventricle is normal in size. Ejection fraction is 55-60%. The basal inferior wall is akinetic. Grade II diastolic dysfunction.The left atrium is mildly dilated.The right ventricle is normal in size. Function is preserved.The right atrium is normal in size. -seen by cardiology [facility] Attending Physician: Rigo Borja NP -continue [...] She will be set up with a court monitor to evaluate for atrial fibrillation burden. -Echocardiogram with Evita Sevilla MD : The left ventricle is normal in size. Ejection fraction is 55-60%. The basal inferior wall is akinetic. Grade II diastolic dysfunction.The left atrium is mildly dilated.The right ventricle is normal in size. Function is preserved.The right atrium is normal in size. -seen by cardiology [facility] Attending Physician: Rigo Borja NP -continue [...] She will be set up with a court monitor to evaluate for atrial fibrillation burden. Other specified health status 08/05/2023 Overview (11/21/2024): -next physical exam due after 11/21/2025 -eye care facilitated by Dr. Stubbs at [facility], seen 06/2024 -dental home is [place] [facility] care proxy on file 12/03/23 Assessment & Plan (11/21/2024 12:46 PM EST): -next physical exam due after 11/21/2025 -eye care facilitated by Dr. Stubbs at [facility], seen 06/2024 -dental home is [place] -[facility] care proxy on file 12/03/23 Assessment & Plan (07/01/2024 11:04 AM EDT): -next physical exam due after 08/12/2024 -eye care facilitated by Dr. Stubbs seen 11/2023 -dental home is [place] -[facility] care proxy on file 12/03/23 Assessment & Plan (08/12/2023 1:17 PM EDT): -next physical exam due after 08/12/2024 -eye care facilitated by Dr. Stubbs -dental home is [place] History of endometrial cancer 12/19/2021 Overview (08/05/2023): [...] residual on most recent CT. 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 Assessment & Plan (07/01/2024 11:04 AM [...] residual on most recent CT. 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 Assessment & Plan (08/05/2023 10:03 AM [...] residual on most recent CT. 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 Urinary incontinence 12/19/2021 Anemia of chronic [...] trying to get her a scooter. Her registered nurse hh case manager is Cris Ibarra , phone #: [phone]. Was last seen on 04/2019 by Sport [...] trying to get her a scooter. Her registered nurse hh case manager is Cris Ibarra , phone #: [phone]. Was last seen on 04/2019 by Sport [...] (01/10/2025): Diabetes is controlled. Followed at Endocrinology [facility] with HENOK King note from 10/13/24 [...] AM EST): Diabetes is controlled. Followed at [facility] with HENOK King note from 10/13/24 [...] EST): Diabetes is controlled. Followed at Endocrinology [facility] Lab Results Component Value Date HGBA1C [...] at home. PAP smear: UTD. Fu'd by ENERGY CONSULTANT due to hx malignancy Mammogram:UTD, no need [...] Description 01/10/2025 11:00 AM EST Office Visit [facility] [address] [place] [phone] Hazel Kilgore MD Diarrhea, unspecified type (Primary Dx); Acute conjunctivitis of right eye, unspecified acute conjunctivitis type; Primary hypertension; Type 2 diabetes mellitus with other specified complication, with long-term current use of insulin (CMS/HCC) 01/10/2025 Travel 01/08/2025 Refill [facility] [address] [place] [address] Hazel Kilgore MD Primary hypertension 12/19/2024 Telephone [facility] [address] [place] [phone] Hazel Kilgore MD [employer] (Pad, 1 Pad prevail, Surcr cardinal protect LG) 12/16/2024 Telephone [facility] [address] [place] [address] Hazel Kilgore MD Durable Medical Equipment (Incont supplies) 12/09/2024 Refill [facility] [address] [place] [address] Hazel Kilgore MD Iron deficiency 12/07/2024 Refill [facility] [address] [place] [phone] Hazel Kilgore MD Type 2 diabetes mellitus with other specified complication, with long-term current use of insulin (CMS/HCC); Renal osteodystrophy; Gastroesophageal reflux disease, unspecified whether esophagitis present 12/04/2024 Refill [facility] [address] [place] [address] Hazel Kilgore MD Constipation, unspecified constipation type 11/21/2024 10:45 AM EST Office Visit [facility] [address] [place] [phone] Hazel Kilgore MD Chronic kidney disease (CKD) stage G3a/A1, moderately decreased glomerular filtration rate (GFR) between 45-59 mL/min/1.73 square meter and albuminuria creatinine ratio less than 30 mg/g ([facility]) (Primary Dx); Open-angle glaucoma, unspecified glaucoma stage, unspecified laterality, unspecified open-angle glaucoma type; Stage 3b chronic kidney disease (CMS/HCC); Chronic bronchitis, unspecified chronic bronchitis type (CMS/HCC); Atrial fibrillation with RVR (CMS/[facility]); Dietary counseling; Exercise counseling; Class 1 obesity due to excess calories with serious comorbidity and body mass index (BMI) of 32.0 to 32.9 in adult; Encounter for immunization; Bilateral impacted cerumen; Constipation, unspecified constipation type; Hyperlipidemia, unspecified hyperlipidemia type; Primary hypertension; Type 2 diabetes mellitus with other specified complication, with long-term current use of insulin ([facility]); Anemia of chronic renal failure, unspecified CKD stage; Back pain, unspecified back location, unspecified back pain laterality, unspecified chronicity; Frail elderly; Other specified health status 11/21/2024 Travel 11/11/2024 Refill [facility] [address] [place] [address] Hazel Kilgore MD Iron deficiency from Last [...] 01/20/2025 11:30 AM EDT Telemedicine [facility] [address] [place] [address] Hazel iKlgore MD [address] [place] [address] Health Maintenance Due Date Last Done Comments [...] Free T4 1.88 0.32 - 4.0 uIU/mL [facility] Blood Venous blood specimen / Unknown 01/10/2025 11:39 AM EST 01/10/2025 1:12 PM EST us Hazle Kilgore MD LAB BLOOD ORDERABLES Final Result [facility] [address] [place] [address] [phone] * Albumin, Random Urine W/Creatinine (01/10/2025 11:39 AM EST) Creatinine, Urine 85.67 mg/dL [facility] Microalbumin Urine 12.0 mg/L [facility] Microalbum Creatinine Ratio Ur 14.0 <30 ug/mg cr [facility] Comment:Albumin/Creatinine R atio Reference Ranges: Normal: < 30 ug/mg creatinine Microalbuminuria: 30 - 300 ug/mg creatinineClinical Albuminuria: > 300 ug/mg creatinine Urine 01/10/2025 11:3 9 AM EST 01/10/2025 1:12 PM EST Hazel Kilgore MD LAB URINE ORDERABLES Final Result Performing Organization Address City/State/[facility] Co de Phone Number [facility] [address] [place] [phone] * (ABNORMAL) CBC auto differential (01/10/2025 11:39 AM EST) White Blood Count 6.8 4.8 - 10.8 X10*3/uL [facility] Red Blood Count 5.10 4.20 - 5.50 X10*6/uL [facility] Hemoglobin 12.1 12.0 - 16.0 g/dl [facility] Hematocrit 41.3 37.0 - 47.0 % [facility] Mean Corpuscular Volume 81.0 80.0 - 98.0 fL [facility] Mean Corpuscular Hemoglobin 23.7(L) 27.0 - 33.0 pg [facility] Mean Corpuscular HGB Conc 29.3(L) 31.0 - 35.0 g/dl [facility] Red Cell Distribution Width 16.4(H) 11.0 - 16.0 % [facility] Platelet Count 163 160 - 400 X10*3/uL [facility] Mean Platelet Volume 12.2 9.4 - 12.3 fL [facility] Neutrophils Percent Auto 67.5 45 - 73 % [facility] Imm Gran Pct Auto 0.3 0.0 - 0.4 % [facility] Lymphocytes Percent Auto 21.6 20 - 40 % [facility] Monocytes Percent Auto 8.9 2 - 11 % [facility] Eosinophils Percent Auto 1.6 0 - 4 % [facility] Basophils Percent Auto 0.1 0 - 2 % [facility] NRBC Pct Auto 0.0 0.0 - 0.2 /100WBC [facility] Neutrophils Absolute Auto 4.6 2.0 - 8.3 x10*3/uL [facility] Imm Gran Abs Auto 0.02 0.00 - 0.03 X10*3/uL [facility] Lymphocytes Absolute Auto 1.5 1.2 - 4.9 X10*3/uL [facility] Monocytes Absolute Auto 0.6 0.1 - 1.2 X10*3/uL [facility] Eosinophils Absolute Auto 0.1 0.0 - 0.4 X10*3/uL [facility] Basophils Absolute Auto 0.0 0.0 - 0.2 X10*3/uL [facility] NRBC Abs Auto 0.000 0.0 - 0.012 X10*3/uL [facility] Blood Venous blood specimen / Unknown 01/10/2025 11:39 AM EST 01/10/2025 1:11 PM EST us Hazel Kilgore MD LAB BLOOD ORDERABLES Final Result [facility] [address] [place] [phone] * (ABNORMAL) Hemoglobin A1c (01/10/2025 11:39 AM EST) Hemoglobin A1c 7.6(H) <6.0 % [facility] Comment:Hemoglobin A1C Refer ence Range Adults: 4.8 - 6.0 % Non diabetic: < 6.0 % Goal: < 7.0 %Additional Action Suggested: > 8.0 %Note: Hemoglobin A1c results are invalid for patients with abnormal amounts of HbF. Blood transfusions may impact the HbA1c concentration in the patient sample. Estimated Average Glucose 171 mg/dL [facility] Comment:eAG = Estimated ave rage glucose which is %A1C expressed asaverage glucose, using the formula of the [id number] Glucose study (ADAG), Diabetes Care, Vol.31,#8,2007 Blood Venous blood specimen / Unknown 01/10/2025 11:39 AM EST 01/10/2025 1:12 PM EST Hazel Kilgore MD LAB BLOOD ORDERABLES Final Result Performing Organization Address [facility] Co pa Phone Number [facility] [address] [place] [phone] * (ABNORMAL) Hepatic Function Panel (01/10/2025 11:39 AM EST) Bilirubin, Total 0.4 0.0 - 1.0 mg/dL [facility] Bilirubin, Direct 0.2 0.0 - 0.5 mg/dL [facility] Aspartate Amino Transferase 33(H) 5 - 31 U/L [facility] Alanine Aminotransferase 43(H) 0 - 31 U/L [facility] Total Protein 7.3 6.5 - 8.0 g/dL [facility] Albumin Level 3.7 3.5 - 5.0 g/dL [facility] Alkaline Phosphatase 66 39 - 117 U/L [facility] Blood Venous blood specimen / Unknown 01/10/2025 11:39 AM EST 01/10/2025 1:12 PM EST Hazel Kilgore MD LAB BLOOD ORDERABLES Final Result Performing Organization Address [facility] Co pa Phone Number [facility] [address] [place] [phone] * Lipid Panel, Standard (01/10/2025 11:39 AM EST) Triglycerides 81 <150 mg/dL [facility] Comment:Desirable Triglyceri de: less than 150 mg/dLBorderline High Triglyceride 150-199 mg/dLHigh Triglyceride: 200-499 mg/dLVery High Triglyceride: greater than or equal to 5OO mg/dL Cholesterol 133 <200 mg/dL [facility] Comment:Desirable Cholestero l: less than 200 mg/dLBorderline High Cholesterol: 200-239 mg/dLHigh Cholesterol: greater than 239 mg/dL LDL Cholesterol Calculated 70 <100 mg/dL [facility] Comment:Desirable LDL: less than 100 mg/dLNear Optimal/Above Optimal LDL: 110- 129 mg/dLBorderline High LDL: 130-159 mg/dLHigh LDL: 160-189 mg/dLVery High LDL: greater than or equal to 190 mg/dL HDL Cholesterol 47 >40 mg/dL [facility] Comment:Desirable HDL: great er than 40 mg/dL Note: This HDL assay may give artificially low results in patients with liver disease. Blood Venous blood specimen / Unknown 01/10/2025 11:39 AM EST 01/10/2025 1:12 PM EST Hazel Kilgore MD LAB BLOOD ORDERABLES Final Result [facility] [address] [place] [phone] * (ABNORMAL) Basic Metabolic Panel (01/10/2025 11:39 AM EST) Sodium 142 135 - 145 mmol/L [facility] Potassium 4.7 3.3 - 5.1 mmol/L [facility] Chloride 104 96 - 108 mmol/L [facility] Carbon Dioxide 32(H) 22 - 29 mmol/L [facility] Anion Gap 11(L) 12 - 20 [facility] Urea Nitrogen (BUN) 26(H) 9 - 16 mg/dL [facility] Creatinine, Serum 1.18 0.5 - 1.4 mg/dL [facility] Estimated Glomerular Filt Rate 44 [facility] Comment:Chronic Kidney Disea se: Estimated GFR < 60 mL/min/1.51n4Ujyfsf Kidney Disease: Estimated GFR < 15 mL/min/1.73m2 Glucose 186(H) 60 - 115 mg/dL [facility] Calcium 9.5 8.4 - 10.2 mg/dL [facility] Blood Venous blood specimen / Unknown 01/10/2025 11:39 AM EST 01/10/2025 1:12 PM EST Hazel Kilgore MD LAB BLOOD ORDERABLES Final Result [facility] [address] [place] [phone] * POCT Influenza B manually resulted (01/10/2025 11:16 AM EST) [facility] Rapid Influenza B Ag Negative Negative, Indeterminate QC Media Lot # [id number] Lot# Expiration Date Swab 01/10/2025 11:1 6 AM EST Hazel Kilgore MD POINT OF CARE TEST ENTER/E DIT ORDERABLES Final Result * POCT Influenza A manually resulted (01/10/2025 11:16 AM EST) [facility] Rapid Influenza A Ag Negative Negative, Indeterminate QC Media Lot # [id number] Lot# Expiration Date Swab Nasopharyngeal structure / Unknown 01/10/2025 11:16 AM EST Hazel Kilgore MD POINT OF CARE TEST ENTER/E DIT ORDERABLES Final Result * POCT Rapid COVID Ag (01/10/2025 11:05 AM EST) [facility] Rapid COVID Ag Negative QC Media Lot # [id number] Lot# Expiration Date Swab 01/10/2025 11:0 5 AM EST Hazel Kilgore MD POINT OF CARE TEST ENTER/E DIT ORDERABLES Final Result * (ABNORMAL) POCT glucose manually resulted (11/21/2024 10:42 AM EST) [facility] Glucose Blood, POC 253(A) 60 - 200 mg/dL QC Media Lot # [id number] Lot# Expiration Date ,223 Blood Capillary blood specimen / Unknown 11/21/2024 10:42 AM EST Hazel Kilgore MD POINT OF CARE TEST ENTER/E DIT ORDERABLES Final Result * (ABNORMAL) POCT glycosylated hemoglobin (Hgb A1c) (11/21/2024 10:40 AM EST) Hemoglobin A1C 8.5(A) 4.0 - 6.0 % QC Media Lot # [id number] Lot# Expiration Date Blood Capillary blood specimen / Unknown 11/21/2024 10:40 AM EST Hazel Kilgore MD POINT OF CARE TEST ENTER/E DIT ORDERABLES Final Result * BI Mammogram Screening Tomosynthesis Bilateral (10/27/2024 11:15 AM EST) Anatomical Region Laterality Modality Breast Bilateral Mammography 10/27/2024 11:1 5 AM EST Narrative 11/08/2024 12:04 PM EST ? [facility] ? [address] ?[place] [id number] ? Mammography Report ? Signed ? Patient: Mary Giles ?MR#: ?? [id number] ? : 1945 ?Acct:[id number] ? Age/Sex: 79 / F ?ADM Date: 12/19/24 ? Loc: HO.MAMMO ? Attending Dr: Hazel Kilgore MD ? Ordering Physician: Hazel Kilgore MD ?Results: 1N ?? egative ? Date of Service: 12/19/24 ?Follow Up: 1 Year From Orig ?? inal Mammogram ? Procedure(s): MM tomosynthesis screening BI ?? Accession Number(s): [id number] ? cc: Hazel Kilgore MD ? EXAMINATION: [...] DD/ 1115 ? TD/TT: 10/27/24 1150 ? Starch Treating Assistant: ? Procedure Note Laura, Image - 11/08/2024 [place] [facility] [address] [place], [place] [address] Mammography Report Signed Patient: Gaetano Gilse#: [id number] : 1945Acct:[id number] Age/Sex: 79 / FADM Date: 10/27/24 Loc: HO.MAMMO Attending Dr: Hazel Kilogre MD Ordering Physician: Hazel Kilgore MDResults: 1N egative Date of Service: 10/27/24Follow Up: 1 Year From Orig inal Mammogram Procedure(s): MM tomosynthesis screening BI Accession Number(s): [id number] cc: Hazel Kilgore MD EXAMINATION: MM SCREENING [...] by: Rachna Seals DO 11/08/2024 12:02 PM [facility] Dictated By: Rachna Seals DO Signed By: <Electronically signed by Rachna Seals DO in OV> 11/08/24 1202 DD/ 1115 TD/TT: 10/27/24 1150 Starch Treating Assistant: Hazel Kilgore MD IMG BI PROCEDURES Edited R esult - Final * Hm Diabetes Eye Exam (04/22/2024 3:23 PM EDT) Eye Exam Normal Normal Comment:follow up one year Historical Provider HEALTH MAINTENANCE Final Result from Last 3 Months or Most Recently Relevant to Health Maintenance Insurance 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 Advance Directives and Livin g Will 12/15/2023 Health Care Proxy Care Teams Insecticide Mixer Relationship Specialty Start Date End Date Scurry, MD Hazel [address] [place] [address] PCP - General Family Medicine 11/09/18 Tee Shay MD [address] [facility] [address] [place] [phone] Nephrology 11/07/24 Nia Borja [address] [facility] [address] [place] [address] Cardiology 11/07/24 Mary Ann Matthew [place] [facility] Endocrinology [address] [facility] Endocrinology 10/14/24 Derrick Mullen, DPVannesa [address] [place] [phone] Podiatry 11/07/24
--- OUTSIDE RECORDS SUMMARY | 2025-01-12 17:02 | XMS_ITS | Encounter Summary ---
Author Organization [facility] Address [address] [place] [address] Phone Care Team Providers Care National Account Director Name Role Phone Hazel Kilgore MD Primary Care Provider U catracho Encounter Details Date Type Department Care Team (Late st Contact Info) Description 03/24/2022 Telephone [facility] [address] [place] [address] Tee Shay MD [phone] [facility] [address] [place] [address] Social History Tobacco Use Types [...] - 03/24/2022 11:28 AM EDT Renae from [facility] called she would like to know if an updated script for lasix 1 tablet in the AM can besent to [facility] pharmacy seeing as the pt has not been taking her PM dose due to frequent nighttime urination. Thank you documented in this encounter Plan of Treatment Not on file documented as of this encounter Visit Diagnoses Not on filedocumented in this encounter Care Teams National Account Director Relationship Specialty Start Date End Date Hazel Kilgore MD [address] [place] [phone] PCP - General 11/19/20 documented as of this encounter
--- OUTSIDE RECORDS SUMMARY | 2025-01-12 17:02 | XMS_ITS | Encounter Summary ---
Author Organization [employer] Address 75 [facility] 7t [place] [address] Care Team Providers Care Chairman & Co Founder Name Role Phone Hazel Kilgore MD Primary Care Provider [phone] Tee Shay MD Unavailable [phone] Nia Borja Unavailable [phone] Encounter Details Date Type Department Care Team (Late st Contact Info) Description 08/04/2023 Orders Only [facility] CHC MED & PEDS [address] [place] [address] Renata Lerner LPN Social History Tobacco Use [...] Info) Description 01/20/2025 11:30 AM EDT Telemedicine [facility] MEDICINE [address] [place], [place] [phone] Hazel Kilgore MD 230 [place], [place] [phone] documented as of this encounter Visit Diagnoses Not on filedocumented in this encounter Additional Health Concerns Assessment Noted Time PHQ-9 Depression Total Score: 0 07/03/20 23 9:07 AM EDT documented as of this encounter Care Teams Chairman & Co Founder Relationship Specialty Start Date End Date Hazel Kilgore MD 230 [place] [address] PCP - General Family Medicine 11/09/18 Tee Shay MD [address] [place] [address] Nephrology 11/07/24 Nia Borja [address] [place] [address] [address] [place] [address] Cardiology 11/07/24 Mary Ann Matthew MA [facility] Endocrinology 3300 [facility] Endocrinology 10/14/24 Derrick Mullen, DPVannesa 175 [place] [address] Podiatry 11/07/24 documented as of this encounter
--- OUTSIDE RECORDS SUMMARY | 2025-01-12 17:02 | XMS_ITS | Clinical Summary ---
Author Organization 175 [facility] Address 175 [place] [address] Phone Care Team Providers Care Appraisal Analyst Name Role Phone Hazel Kilgore MD Primary Care Provider [phone]- [phone] Allergies No known active allergies Medications ammonium [...] Orthopedic Surgery [facility] [address] [phone] Derrick Mullen DPM Controlled type 2 diabetes [...] Orthopedic Surgery [facility] [address] [phone] Derrick Mullen, MADIHA [address] [address] Health Maintenance Due Date Last Done Comments [...] * Urine Albumin Creatinine Ratio (08/13/2023) Pathologist [facility] Urine Albumin Creatinine Ratio Abstracted [facility] Provider HEALTH MAINTENANCE Final Result * Annual BMP Blood Test (08/13/2023) Pathologist [facility] Annual BMP Blood Test Abstracted [facility] Provider HEALTH MAINTENANCE Final Result * Lipid panel (08/13/2023) Pathologist [facility] LDL/HDL Ratio 0 Triglycerides 0 mg/dL Cholesterol 0 mg/dL HDL 0 mg/dL LDL Cholesterol 0 mg/dL Blood Venous blood specimen / Unknown Result [facility] Provider LAB BLOOD ORDERABLES Violet l Result * Hemoglobin A1c (01/17/2021) Pathologist [facility] Hemoglobin A1C 0.0 % Blood Venous blood specimen / Unknown us Historical Provider LAB BLOOD ORDERABLES Violet l Result from Last 3 Months or Most Recently Relevant to Health Maintenance Insurance Member Subscriber Plan / Payer (Ef fective 2020-Present) Name:Mary Giles Relation to Subscriber:Self Name:Mary Giles Payer ID:[id number] Group ID:[id number] Type:Not on file Address: [place] [address] [address] [phone] Care Teams Appraisal Analyst Relationship Specialty Start Date End Date Love, MD Hazel [address] [place] [address] MARGO Jha [phone] PCP - General 10/13/23
--- OUTSIDE RECORDS SUMMARY | 2025-01-12 17:02 | XMS_ITS | Encounter Summary ---
Author Organization [employer] Address 75 [facility] 7t [place] [address] Care Team Providers Care Promotions Producer Name Role Phone Hazel Kilgore MD Primary Care Provider [phone]- [phone] Tee Shay MD Unavailable [phone] Nia Borja Unavailable [phone] Encounter Details Date Type Department Care Team (Late st Contact Info) Description 04/10/2023 Orders Only [facility] CHC MED & PEDS [address] [place] [address] Amaya Garcia LPN Social History Tobacco Use [...] Info) Description 01/20/2025 11:30 AM EDT Telemedicine [facility] MEDICINE 230 [place] [address] Hazel Kilgore MD 230 [place], [place] [phone] documented as of this encounter Visit Diagnoses Not on filedocumented in this encounter Care Teams Promotions Producer Relationship Specialty Start Date End Date Hazel Kilgore MD 230 [place], [place] [phone] PCP - General Family Medicine 11/09/18 Tee Shay MD [address] [place] [address] Nephrology 11/07/24 Nia Borja [address] [place] [address] Cardiology 11/07/24 Mary Ann Matthew MA [facility] Endocrinology 3300 [facility] Endocrinology 10/14/24 Derrick Mullen, MADIHA 175 [place] [address] Podiatry 11/07/24 documented as of this encounter
--- OUTSIDE RECORDS SUMMARY | 2025-01-12 17:02 | XMS_ITS | Encounter Summary ---
Author Organization [employer] Address [address] [facility] [address] 7t [place] [address] Care Team Providers Care Nutritionist Name Role Phone Hazel Kilgore MD Primary Care Provider [phone]- [phone] Tee Shay MD Unavailable [phone] Nia Borja Unavailable [phone] Reason for Visit * Reason Comments Med Refill Encounter Details Date Type Department Care Team (Late st Contact Info) Description 08/19/2023 Refill [facility] CHC MED & PEDS [address] [place], [place] [phone] Hazel Kilgore MD 230 [place] [address] Social History Tobacco Use Types Packs/Day Years [...] Info) Description 01/20/2025 11:30 AM EDT Telemedicine [facility] MEDICINE 230 [place] [address] Hazel Kilgore MD 230 [place] [address] documented as of this encounter Visit Diagnoses Not on filedocumented in this encounter Additional Health Concerns Assessment Noted Time PHQ-9 Depression Total Score: 0 07/03/20 23 9:07 AM EDT documented as of this encounter Care Teams Nutritionist Relationship Specialty Start Date End Date Hazel Kilgore MD 230 [place] [address] PCP - General Family Medicine 11/09/18 Tee Shay MD [address] [facility] 200 [place] [address] Nephrology 11/07/24 Nia Borja 3300 [facility] [address] [place] [address] Cardiology 11/07/24 Mary Ann Matthew MA [facility] Endocrinology [address]00 [facility] Endocrinology 10/14/24 Derrick Mullen, MADIHA [address] [place] [address] Podiatry 11/07/24 documented as of this encounter
--- OUTSIDE RECORDS SUMMARY | 2025-01-12 17:02 | XMS_ITS | Encounter Summary ---
Author Organization [facility] Address [facility] 200 [place] [address] Phone Care Team Providers Care Tower Air Traffic Control Specialist Name Role Phone [place], Hazel Soriano MD Primary Care Provider U navailable Reason for Visit * Reason Comments Med Refill Encounter Details Date Type Department Care Team (Late st Contact Info) Description 04/24/2022 Refill [facility] [address] [place] [address] Tee Shay MD [address] [facility] 204 [place] [address] Social History Tobacco Use Types [...] on filedocumented in this encounter Care Teams Tower Air Traffic Control Specialist Relationship Specialty Start Date End Date Hazel Kilgore MD 230 [place] [address] PCP - General 11/19/20 documented as of this encounter
--- OUTSIDE RECORDS SUMMARY | 2025-01-12 17:02 | XMS_ITS | Encounter Summary ---
Author Organization [employer] [facility] Address 75 [facility] 7t [place] [address] Care Team Providers Care Senior Talent Acquisition Specialist Name Role Phone Hazel Kilgore MD Primary Care Provider [phone] Tee Shay MD Unavailable Nia Borja Unavailable [phone] Encounter Details Date Type Department Care Team (Late st Contact Info) Description 12/26/2022 Abstract [facility] MEDICINE [address] [place] [phone] Hazel Kilgore MD [address] [place] [address] [phone] Social History Tobacco Use Types Packs/Day Years [...] Telemedicine [facility] MEDICINE [address] [place] [phone] Hazel Kilgore MD [address] [place] [phone] documented as of this encounter Procedures Procedure [...] on filedocumented in this encounter Care Teams Senior Talent Acquisition Specialist Relationship Specialty Start Date End Date Hazel Kilgore MD 230 [place] [address] PCP - General Family Medicine 11/09/18 Tee Shay MD [facility] [address] [place] [address] Nephrology 11/07/24 Nia Borja 3300 [facility] [address] [place] [address] Cardiology 11/07/24 Mary Ann Matthew [place] [facility] Endocrinology 3300 [facility] Endocrinology 10/14/24 Derrick Mullen, DPM 175 [place] [address] Podiatry 11/07/24 documented as of this encounter
--- OUTSIDE RECORDS SUMMARY | 2025-01-12 17:02 | XMS_ITS | Encounter Summary ---
Author Organization [employer] [facility] Address 75 [facility] 7t [place] [address] Care Team Providers Care Wet Process Assistant Head Miller Name Role Phone Hazel Kilgore MD Primary Care Provider [phone] Tee Shay MD Unavailable [phone] Nia Borja Unavailable [phone] Reason for Referral * Consultation (Routine) - Authorized Specialty Diagnoses / Procedures Referred By Contac t Referred To Contact Gastroenterology Diagnoses Diarrhea, unspecified type Hazel Kilgore MD [address] [place] [address] Phone: tel: fax: [facility] [address] [place] [address] 2nd Floor [place], [place] Phone: tel: fax: Referral ID Status Reason Start Date Expiration Date Visits Requested Visits Authorized [id number] Authorized Specialty Services Required 01/10/2025 01/10/2026 1 1 Reason for Visit * Reason Comments left eye infection [facility] Encounter Details Date Type Department Care Team (Latest Contact Info) Description 01/10/2025 11:00 AM EST Office Visit [facility] WALK[facility] [address] [place] [address] [phone] Hazel Kilgore MD [address] [place] [phone] Diarrhea, unspecified type (Primary Dx); Acute conjunctivitis of right eye, unspecified acute conjunctivitis type; Primary hypertension; Type 2 diabetes mellitus with other specified complication, with long-term current use of insulin (CMS/HCC) Social History Tobacco Use Types Packs/Day Years [...] she has been having diarrhea since before . Per records she wason Macrobid around that time. She also notes she has suspected having an infection in her left eye that has been red since two days ago. Denies any fevers, cough, sore throat, nausea or vomiting. She reports she was seeing her therapeutic sales specialist for infection in her right eye before. [...] (CMS/HCC) Diabetes is controlled. Followed at Endocrinology [facility] with HENOK King note from 10/13/24 reviewed [...] AM ESTAssociated Problem(s): Type 2 diabetes mellitus ([facility]) Diabetes is controlled. Followed at Endocrinology [facility] with HENOK King note from 10/13/24 reviewed [...] 01/20/2025 11:30 AM EDT Telemedicine [facility] MEDICINE 230 [place] [address] Hazel Kilgore MD 230 [place] [address] Scheduled Orders Name Type Priority Associated Diagnoses [...] with long-term current use of insulin (CMS/HCC) CBC WITH AUTO DIFFERENTIAL Routine 01/10/2025 11:39 [...] complication, with long-term current use of insulin ([facility]) BASIC METABOLIC PANEL Routine 01/10/2025 11:39 AM EST Diarrhea, unspecified type Type 2 diabetes mellitus with other specified complication, with long-term current use of insulin ([facility]) POCT INFLUENZA B Routine 01/10/2025 11:1 6 AM EST Diarrhea, unspecified type POCT INFLUENZA A Routine 01/10/2025 11:1 6 AM EST Diarrhea, unspecified type POCT RAPID COVID ANTIGEN Routine 01/10/2025 11:05 AM EST Diarrhea, unspecified type documented in this encounter Results * TSH W/Reflex to FT4 (01/10/2025 11:39 AM EST) TSH reflex Free T4 1.88 0.32 - 4.0 uIU/mL [facility] Blood Venous blood specimen / Unknown 01/10/2025 11:39 AM EST 01/10/2025 1:12 PM EST us Hazel Kilgore MD LAB BLOOD ORDERABLES Final Result [facility] [address] [place] [phone] * (ABNORMAL) CBC auto differential (01/10/2025 11:39 AM EST) White Blood Count 6.8 4.8 - 10.8 X10*3/uL [facility] Red Blood Count 5.10 4.20 - 5.50 X10*6/uL [facility] Hemoglobin 12.1 12.0 - 16.0 g/dl [facility] Hematocrit 41.3 37.0 - 47.0 % [facility] Mean Corpuscular Volume 81.0 80.0 - 98.0 fL [facility] Mean Corpuscular Hemoglobin 23.7(L) 27.0 - 33.0 pg [facility] Mean Corpuscular HGB Conc 29.3(L) 31.0 - 35.0 g/dl [facility] Red Cell Distribution Width 16.4(H) 11.0 - 16.0 % [facility] Platelet Count 163 160 - 400 X10*3/uL [facility] Mean Platelet Volume 12.2 9.4 - 12.3 fL [facility] Neutrophils Percent Auto 67.5 45 - 73 % [facility] Imm Gran Pct Auto 0.3 0.0 - 0.4 % [facility] Lymphocytes Percent Auto 21.6 20 - 40 % [facility] Monocytes Percent Auto 8.9 2 - 11 % [facility] Eosinophils Percent Auto 1.6 0 - 4 % [facility] Basophils Percent Auto 0.1 0 - 2 % [facility] NRBC Pct Auto 0.0 0.0 - 0.2 /100WBC [facility] Neutrophils Absolute Auto 4.6 2.0 - 8.3 x10*3/uL [facility] Imm Gran Abs Auto 0.02 0.00 - 0.03 X10*3/uL [facility] Lymphocytes Absolute Auto 1.5 1.2 - 4.9 X10*3/uL [facility] Monocytes Absolute Auto 0.6 0.1 - 1.2 X10*3/uL [facility] Eosinophils Absolute Auto 0.1 0.0 - 0.4 X10*3/uL [facility] Basophils Absolute Auto 0.0 0.0 - 0.2 X10*3/uL [facility] NRBC Abs Auto 0.000 0.0 - 0.012 X10*3/uL [facility] Blood Venous blood specimen / Unknown 01/10/2025 11:39 AM EST 01/10/2025 1:11 PM EST us Hazel Kilgore MD LAB BLOOD ORDERABLES Final Result [facility] [address] [place] [address] [phone] * (ABNORMAL) Basic Metabolic Panel (01/10/2025 11:39 AM EST) Sodium 142 135 - 145 mmol/L [facility] Potassium 4.7 3.3 - 5.1 mmol/L [facility] Chloride 104 96 - 108 mmol/L [facility] Carbon Dioxide 32(H) 22 - 29 mmol/L [facility] Anion Gap 11(L) 12 - 20 [facility] Urea Nitrogen (BUN) 26(H) 9 - 16 mg/dL [facility] Creatinine, Serum 1.18 0.5 - 1.4 mg/dL [facility] Estimated Glomerular Filt Rate 44 [facility] Comment:Chronic Kidney Disea se: Estimated GFR < 60 mL/min/[id number] Kidney Disease: Estimated GFR < 15 mL/min/1.73m2 Glucose 186(H) 60 - 115 mg/dL [facility] Calcium 9.5 8.4 - 10.2 mg/dL [facility] Blood Venous blood specimen / Unknown 01/10/2025 11:39 AM EST 01/10/2025 1:12 PM EST Hazel Kilgore MD LAB BLOOD ORDERABLES Final Result [facility] [address] [place] [address] [phone] * (ABNORMAL) Hemoglobin A1c (01/10/2025 11:39 AM EST) Hemoglobin A1c 7.6(H) <6.0 % [facility] Comment:Hemoglobin A1C Refer ence Range Adults: 4.8 - 6.0 % Non diabetic: < 6.0 % Goal: < 7.0 %Additional Action Suggested: > 8.0 %Note: Hemoglobin A1c results are invalid for patients with abnormal amounts of HbF. Blood transfusions may impact the HbA1c concentration in the patient sample. Estimated Average Glucose 171 mg/dL [facility] Comment:eAG = Estimated ave rage glucose which is %A1C expressed asaverage glucose, using the formula of the S6Y-[id number] Glucose study (ADAG), Diabetes Care, Vol.31,#8,2007 Blood Venous blood specimen / Unknown 01/10/2025 11:39 AM EST 01/10/2025 1:12 PM EST Hazel Kilgore MD LAB BLOOD ORDERABLES Final Result Performing Organization Address [facility] Co de Phone Number [facility] [address] [place] [phone] * Lipid Panel, Standard (01/10/2025 11:39 AM EST) Triglycerides 81 <150 mg/dL [facility] Comment:Desirable Triglyceri de: less than 150 mg/dLBorderline High Triglyceride 150-199 mg/dLHigh Triglyceride: 200-499 mg/dLVery High Triglyceride: greater than or equal to 5OO mg/dL Cholesterol 133 <200 mg/dL [facility] Comment:Desirable Cholestero l: less than 200 mg/dLBorderline High Cholesterol: 200-239 mg/dLHigh Cholesterol: greater than 239 mg/dL LDL Cholesterol Calculated 70 <100 mg/dL [facility] Comment:Desirable LDL: less than 100 mg/dLNear Optimal/Above Optimal LDL: 110- 129 mg/dLBorderline High LDL: 130-159 mg/dLHigh LDL: 160-189 mg/dLVery High LDL: greater than or equal to 190 mg/dL HDL Cholesterol 47 >40 mg/dL [facility] Comment:Desirable HDL: great er than 40 mg/dL Note: This HDL assay may give artificially low results in patients with liver disease. Blood Venous blood specimen / Unknown 01/10/2025 11:39 AM EST 01/10/2025 1:12 PM EST Hazel Kilgore MD LAB BLOOD ORDERABLES Final Result Performing Organization Address [facility]/ZIP Co de Phone Number [facility] [address] [place] [phone] * (ABNORMAL) Hepatic Function Panel (01/10/2025 11:39 AM EST) Bilirubin, Total 0.4 0.0 - 1.0 mg/dL [facility] Bilirubin, Direct 0.2 0.0 - 0.5 mg/dL [facility] Aspartate Amino Transferase 33(H) 5 - 31 U/L [facility] Alanine Aminotransferase 43(H) 0 - 31 U/L [facility] Total Protein 7.3 6.5 - 8.0 g/dL [facility] Albumin Level 3.7 3.5 - 5.0 g/dL [facility] Alkaline Phosphatase 66 39 - 117 U/L [facility] Blood Venous blood specimen / Unknown 01/10/2025 11:39 AM EST 01/10/2025 1:12 PM EST Hazel Kilgore MD LAB BLOOD ORDERABLES Final Result Performing Organization Address [facility] Co de Phone Number [facility] [address] [place] [phone] * Albumin, Random Urine W/Creatinine (01/10/2025 11:39 AM EST) Creatinine, Urine 85.67 mg/dL [facility] Microalbumin Urine 12.0 mg/L [facility] Microalbum Creatinine Ratio Ur 14.0 <30 ug/mg cr [facility] Comment:Albumin/Creatinine R atio Reference Ranges: Normal: < 30 ug/mg creatinine Microalbuminuria: 30 - 300 ug/mg creatinineClinical Albuminuria: > 300 ug/mg creatinine Urine 01/10/2025 11:3 9 AM EST 01/10/2025 1:12 PM EST Hazel Kilgore MD LAB URINE ORDERABLES Final Result Performing Organization Address [facility] Co de Phone Number [facility] [address] [place] [phone] * POCT Influenza B manually resulted (01/10/2025 11:16 AM EST) Rapid Influenza B Ag Negative Negative, Indeterminate QC Media Lot # [id number] Lot# Expiration Date Swab 01/10/2025 11:1 6 AM EST Hazel Kilgore MD POINT OF CARE TEST ENTER/E DIT ORDERABLES Final Result * POCT Influenza A manually resulted (01/10/2025 11:16 AM EST) Rapid Influenza A Ag Negative Negative, Indeterminate QC Media Lot # [id number] Lot# Expiration Date Swab Nasopharyngeal structure / Unknown 01/10/2025 11:16 AM EST Hazel Kilgore MD POINT OF CARE TEST ENTER/E DIT ORDERABLES Final Result * POCT Rapid COVID Ag (01/10/2025 11:05 AM EST) Rapid COVID Ag Negative QC Media Lot # [id number] Lot# Expiration Date 42 Swab 01/10/2025 11:0 5 AM EST Hazel Kilgore MD POINT OF CARE TEST ENTER/E DIT ORDERABLES Final Result documented in this encounter Visit Diagnoses Diagnosis Diarrhea, unspecified type- Primary Acute conjunctivitis of right eye, unspecified acute conjunctivitis type Primary hypertension Unspecified essential hypertension Type 2 diabetes mellitus with other specified complication, with long-term current use of insulin ([facility]) documented in this encounter Additional Health Concerns Assessment Noted Time PHQ-9 Depression Total Score: 0 11/21/19 25 10:37 AM EST documented as of this encounter Care Teams Wet Process Assistant Head Miller Relationship Specialty Start Date End Date Hazel Kilgore MD [address] [place] [phone] PCP - General Family Medicine 11/09/18 Tee Shay MD [address] [place] [address] Nephrology 11/07/24 Nia Borja [address] [place] [address] Cardiology 11/07/24 Mary Ann Matthew [place] [facility] Endocrinology 3300 [facility] Endocrinology 10/14/24 Derrick Mullen, DPM 175 [place] [address] Podiatry 11/07/24 documented as of this encounter
--- OUTSIDE RECORDS SUMMARY | 2025-01-12 17:02 | XMS_ITS | Encounter Summary ---
Author Organization [employer] Address [address] [facility] [address] 7t [place] [address] Care Team Providers Care Cotton Classer Aide Name Role Phone Hazel Kilgore MD Primary Care Provider [phone] Tee Shay MD Unavailable [phone] Nia Borja Unavailable [phone] Encounter Details Date Type Department Care Team (Late st Contact Info) Description 08/20/2023 Orders Only [facility] MEDICINE [address] [place], [place] [phone] Hazel Kilgore MD 230 [place], [place] [phone] Social History Tobacco Use Types Packs/Day Years [...] Info) Description 01/20/2025 11:30 AM EDT Telemedicine [facility] MEDICINE [address] [place] [address] Hazel Kilgore MD 230 [place] [address] documented as of this encounter Visit Diagnoses Not on filedocumented in this encounter Additional Health Concerns Assessment Noted Time PHQ-9 Depression Total Score: 0 07/03/20 23 9:07 AM EDT documented as of this encounter Care Teams Cotton Classer Aide Relationship Specialty Start Date End Date Hazel Kilgore MD 230 [place] [address] PCP - General Family Medicine 11/09/18 Tee Shay MD [address] [place] [address] Nephrology 11/07/24 Nia Borja [address] [facility] [address] [place] [address] Cardiology 11/07/24 Mary Ann Matthew [place] [facility] Endocrinology 3300 [facility] Endocrinology 10/14/24 Derrick Mullen, DPM 175 [place] [address] Podiatry 11/07/24 documented as of this encounter
--- OUTSIDE RECORDS SUMMARY | 2025-01-12 17:02 | XMS_ITS | Encounter Summary ---
Author Organization [employer] Address 75 [facility] 7t [place] [address] Care Team Providers Care Certified Optician Name Role Phone Hazel Kilgore MD Primary Care Provider +1- [phone] Tee Shay MD Unavailable [phone] Nia Borja Unavailable [phone] Reason for Visit * Reason Onset Date Comments [employer] 12/19/2024 P ad, 1 Pad prevail, Surcr cardinal protect LG Encounter Details Date Type Department Care Team (Late st Contact Info) Description 12/19/2024 Telephone [facility] MEDICINE 230 [place], [place] [phone] Hazel Kilgore MD 230 [place], [place] [phone] [employer] (Pad, 1 Pad prevail, [...] AM EDT Telemedicine [facility] MEDICINE 230 [place], [place] [phone] Hazel Kilgore MD 230 [place], [place] [phone] documented as of this encounter Visit Diagnoses Not on filedocumented in this encounter Additional Health Concerns Assessment Noted Time PHQ-9 Depression Total Score: 0 11/21/19 25 10:37 AM EST documented as of this encounter Care Teams Certified Optician Relationship Specialty Start Date End Date Hazel Kilgore MD 230 [place] [address] PCP - General Family Medicine 11/09/18 Tee Shay MD [address] [place] [address] Nephrology 11/07/24 Nia Borja 3300 [facility] [address] [place] [address] Cardiology 11/07/24 Mary Ann Matthew [place] [facility] Endocrinology 3300 [facility] Endocrinology 10/14/24 Derrick Mullen, DPM 175 [place] [address] Podiatry 11/07/24 documented as of this encounter
--- OUTSIDE RECORDS SUMMARY | 2025-01-12 17:02 | XMS_ITS | Encounter Summary ---
Author Organization [employer] Address 75 [facility] 7t [place] [address] Care Team Providers Care Contract Associate Name Role Phone Hazel Kilgore MD Primary Care Provider +1- [phone] Tee Shay MD Unavailable [phone] Nia Borja Unavailable [phone] Encounter Details Date Type Department Care Team (Late st Contact Info) Description 01/21/2023 Orders Only [facility] CHC MED & PEDS [address] [place] [address] Amaya Garcia LPN Social History Tobacco Use [...] Info) Description 01/20/2025 11:30 AM EDT Telemedicine [facility] MEDICINE 230 [place] [address] Hazel Kilgore MD 230 [place], [place] [phone] documented as of this encounter Visit Diagnoses Not on filedocumented in this encounter Care Teams Contract Associate Relationship Specialty Start Date End Date Hazel Kilgore MD 230 [place], [place] [phone] PCP - General Family Medicine 11/09/18 Tee Shay MD [address] [place] [address] Nephrology 11/07/24 Nia Borja [address] [place] [address] Cardiology 11/07/24 Mary Ann Matthew MA [facility] Endocrinology 3300 [facility] Endocrinology 10/14/24 Derrick Mullen, MADIHA 175 [place] [address] Podiatry 11/07/24 documented as of this encounter
--- OUTSIDE RECORDS SUMMARY | 2025-01-12 17:02 | XMS_ITS | Encounter Summary ---
Author Organization [employer] Address 75 [facility] 7t [place] [address] Care Team Providers Care Slab Lifting Supervisor Name Role Phone Hazel Kilgore MD Primary Care Provider +1- [phone] Tee Shay MD Unavailable [phone] Nia Borja Unavailable Encounter Details Date Type Department Care Team (Late st Contact Info) Description 07/15/2023 Orders Only [facility] CHC MED & PEDS 505 [place], [place] [phone] Amaya Garcia LPN Social History Tobacco Use [...] Info) Description 01/20/2025 11:30 AM EDT Telemedicine [facility] MEDICINE 230 [place], [place] [phone] Hazel Kilgore MD 230 [place], [place] [phone] documented as of this encounter Visit Diagnoses Not on filedocumented in this encounter Additional Health Concerns Assessment Noted Time PHQ-9 Depression Total Score: 0 07/03/20 23 9:07 AM EDT documented as of this encounter Care Teams Slab Lifting Supervisor Relationship Specialty Start Date End Date Haezl Kilgore MD 230 [place] [address] PCP - General Family Medicine 11/09/18 Tee Shay MD [address] [place] [address] Nephrology 11/07/24 Nia Borja 3300 [facility] [address] [place] [address] Cardiology 11/07/24 Mary Ann Matthew [place] [facility] Endocrinology 3300 [facility] Endocrinology 10/14/24 Derrick Mullen DPM 175 [place] [address] Podiatry 11/07/24 documented as of this encounter
--- OUTSIDE RECORDS SUMMARY | 2025-01-12 17:02 | XMS_ITS | Encounter Summary ---
Author Organization [employer] Address [address] [facility] [address] 7t [place] [address] Care Team Providers Care Flocculator Operator Name Role Phone Hazel Kilgore MD Primary Care Provider +[phone]- [phone] Tee Shay MD Unavailable [phone] Nia Borja Unavailable [phone] Reason for Visit * Reason Onset Date Comments Referral 09/04/2023 Encounter Details Date Type Department Care Team (Late st Contact Info) Description 09/04/2023 Telephone [facility] MEDICINE 230 [place], [place] [phone] Hazel Kilgore MD 230 [place], [place] [phone] Referral Social History Tobacco Use Types Packs/Day [...] at place below. * Telephone Encounter - Nyal Gallardo - 09/04/2023 10:47 AM EDT Tc from pt requesting a new referral for Podiatry specialist. [facility] Address [address] [place] [address] documented in this encounter Plan of Treatment Upcoming Encounters Date Type Department Care Team (Late st Contact Info) Description 01/20/2025 11:30 AM EDT Telemedicine [facility] MEDICINE 230 [place] [address] Hazel Kilgore MD 230 [place] [address] documented as of this encounter Visit Diagnoses Not on filedocumented in this encounter Additional Health Concerns Assessment Noted Time PHQ-9 Depression Total Score: 0 07/03/20 23 9:07 AM EDT documented as of this encounter Care Teams Flocculator Operator Relationship Specialty Start Date End Date Hazel Kilgore MD 230 [place] [address] PCP - General Family Medicine 11/09/18 Tee Shay MD [address] [place] [address] Nephrology 11/07/24 Nia Borja 3300 [facility] [address]ND [address] [place] [address] Cardiology 11/07/24 Mary Ann Matthew [place] [facility] Endocrinology 3300 [facility] Endocrinology 10/14/24 Derrick Mullen, DPM 175 [place] [address] Podiatry 11/07/24 documented as of this encounter
[2025-01-13 09:39] LABS: Adenovirus F 40/41 Not Detected (Not Detect.); Astrovirus Not Detected (Not Detect.); Campylobacter Not Detected (Not Detect.); Cryptosporidium Not Detected (Not Detect.); Cyclospora cayetanensis Not Detected (Not Detect.); E. coli EAEC Not Detected (Not Detect.); E. coli EPEC Not Detected (Not Detect.); E. coli ETEC Not Detected (Not Detect.); E. coli STEC Not Detected (Not Detect.); Entamoeba histolytica Not Detected (Not Detect.); Giardia lamblia Not Detected (Not Detect.); Norovirus GI/GII Not Detected (Not Detect.); Plesiomonas shigelloides Not Detected (Not Detect.); Rotavirus A Not Detected (Not Detect.); Salmonella Not Detected (Not Detect.); Sapovirus Not Detected (Not Detect.); Shigella sp./EIEC Not Detected (Not Detect.); Vibrio Not Detected (Not Detect.); Vibrio Cholerae Not Detected (Not Detect.); Yersinia enterocolitica Not Detected (Not Detect.)
== END 2025-01-12 13:55 | disposition home or self-care (01) ==
LOC: HO.LNP 13:54
PROVIDERS: Visit Provider Family Medicine
DX: E11.69 Type 2 diabetes mellitus with other specified complication (principal); R19.7 Diarrhea, unspecified; Z79.4 Long term (current) use of insulin
CPT/HCPCS: 87507

== ENCOUNTER 2025-02-21 | Outpatient (REF) | payer MEDICARE, SELFPAY ==
--- OUTSIDE RECORDS SUMMARY | 2025-02-22 18:16 | XMS_ITS | Encounter Summary ---
Author Organization [employer] Address [address] [facility] [address] [address] 7t [place] [address] Care Team Providers Care Territory Account Executive Name Role Phone Hazel Kilgore MD Primary Care Provider [phone]- [phone] Tee Shay MD Unavailable [phone] Nia Borja Unavailable [phone] Reason for Visit * Reason Comments Med Refill Encounter Details Date Type Department Care Team (Late st Contact Info) Description 08/19/2023 Refill [facility] CHC MED & PEDS [address] [place], [place] [phone] Hazel Kilgore MD 230 [place] [address] Social History Tobacco Use Types Packs/Day Years [...] Care Team (Late st Contact Info) Description 03/27/2025 10:45 AM EDT Telemedicine [facility] MEDICINE 230 [place] [address] Hazel Kilgore MD 230 [place] [address] documented as of this encounter Visit Diagnoses Not on filedocumented in this encounter Additional Health Concerns Assessment Noted Time PHQ-9 Depression Total Score: 0 07/03/20 23 9:07 AM EDT documented as of this encounter Care Teams Territory Account Executive Relationship Specialty Start Date End Date Hazel Kilgore MD 230 [place] [address] PCP - General Family Medicine 11/09/18 Tee Shay MD [address] [facility] 200 [place] [address] Nephrology 11/07/24 Nia Borja 3300 [facility] [address] [place] [address] Cardiology 11/07/24 Mary Ann Matthew [place] [facility] Endocrinology 3300 [facility] Endocrinology 10/14/24 Derrick Mullen, MADIHA [address] [place] [address] Podiatry 11/07/24 documented as of this encounter
--- OUTSIDE RECORDS SUMMARY | 2025-02-22 18:16 | XMS_ITS | Encounter Summary ---
Author Organization [employer] Address 75 [facility] 7t [place] [address] Care Team Providers Care Mutuel Teller Name Role Phone Hazel Kilgore MD Primary Care Provider +1- [phone] Tee Shay MD Unavailable [phone] Nia Borja Unavailable [phone] Encounter Details Date Type Department Care Team (Late st Contact Info) Description 01/21/2023 Orders Only [facility] CHC MED & PEDS [address] [place] [address] Amaya Garcia LPN Social History Tobacco Use [...] Info) Description 03/27/2025 10:45 AM EDT Telemedicine [facility] MEDICINE 230 [place] [address] Hazel Kilgore MD 230 [place], [place] [phone] documented as of this encounter Visit Diagnoses Not on filedocumented in this encounter Care Teams Mutuel Teller Relationship Specialty Start Date End Date Hazel Kilgore MD 230 [place], [place] [phone] PCP - General Family Medicine 11/09/18 Tee Shay MD [address] [place] [address] Nephrology 11/07/24 Nia Borja [address] [place] [address] Cardiology 11/07/24 Mary Ann Matthew MA [facility] Endocrinology 3300 [facility] Endocrinology 10/14/24 Derrick Mullen, MADIHA 175 [place] [address] Podiatry 11/07/24 documented as of this encounter
--- OUTSIDE RECORDS SUMMARY | 2025-02-22 18:16 | XMS_ITS | Encounter Summary ---
Author Organization [employer] Address [address] [facility] [address] 7t [place] [address] Care Team Providers Care Pantograph Machine Operator Name Role Phone Crowley, Hazel FELIPE Primary Care Provider [phone]- [phone] Tee Shay MD Unavailable [phone] Nia Borja Unavailable [phone] Reason for Visit * Reason Comments Med Refill Encounter Details Date Type Department Care Team (Late st Contact Info) Description 08/13/2023 Refill [facility] CHC MED & PEDS [address] [place], [place] [phone] Mireya Vasquez MD 230 [place] [address] Social History Tobacco Use Types Packs/Day Years [...] Info) Description 03/27/2025 10:45 AM EDT Telemedicine [facility] MEDICINE 230 [place] [address] Hazel Kilgore MD [address] [place] [address] documented as of this encounter Visit Diagnoses Not on filedocumented in this encounter Additional Health Concerns Assessment Noted Time PHQ-9 Depression Total Score: 0 07/03/20 23 9:07 AM EDT documented as of this encounter Care Teams Pantograph Machine Operator Relationship Specialty Start Date End Date Hazel Kilgore MD 230 [place] [address] PCP - General Family Medicine 11/09/18 Tee Shay MD [address] [facility] 200 [place] [address] Nephrology 11/07/[address] [facility] [address] [place] [address] Cardiology 11/07/24 Mary Ann Matthew [place] [facility] Endocrinology 3300 [facility] Endocrinology 10/14/24 Derrick Mullen, MADIHA [address] [place] [address] Podiatry 11/07/24 documented as of this encounter
--- OUTSIDE RECORDS SUMMARY | 2025-02-22 18:16 | XMS_ITS | Encounter Summary ---
Author Organization [facility] Address [address] [place] [address] Phone Care Team Providers Care Slot Machine Repairer Name Role Phone Hazel Kilgore MD Primary Care Provider U catracho Encounter Details Date Type Department Care Team (Late st Contact Info) Description 03/24/2022 Telephone [facility] [address] [place] [address] Tee Shay MD 2801 [facility] 204 [place] [address] Social History Tobacco Use Types [...] - 03/24/2022 11:28 AM EDT Renae from [facility] called she would like to know if an updated script for lasix 1 tablet in the AM can besent to [facility] pharmacy seeing as the pt has not been taking her PM dose due to frequent nighttime urination. Thank you documented in this encounter Plan of Treatment Not on file documented as of this encounter Visit Diagnoses Not on filedocumented in this encounter Care Teams Slot Machine Repairer Relationship Specialty Start Date End Date Hazel Kilgore MD [address] [place] [address] PCP - General 11/19/20 documented as of this encounter
--- OUTSIDE RECORDS SUMMARY | 2025-02-22 18:16 | XMS_ITS | Encounter Summary ---
Author Organization [employer] [facility] Address [address] [employer] 7t [place] [address] Care Team Providers Care Editor Department Name Role Phone Hazel Kilgore MD Primary Care Provider [phone]- [phone] Tee Shay MD Unavailable [phone] JonhNia Unavailable [phone] Encounter Details Date Type Department Care Team (Latest Contact Info) Description 07/28/2019 Abstract [facility] CONVERSIONS Dental, Provider, DDS Social History Tobacco [...] Info) Description 03/27/2025 10:45 AM EDT Telemedicine [facility] MEDICINE 230 [place] [address] Hazel Kilgore MD 230 [place] [address] documented as of this encounter Visit Diagnoses Not on filedocumented in this encounter Care Teams Editor Department Relationship Specialty Start Date End Date Hazel Kilgore MD 230 [place], [place] [phone] PCP - General Family Medicine 11/09/18 Tee Shay MD [address] [place] [address] Nephrology 11/07/24 Nia Borja 3300 [facility] [address] [place] [address] Cardiology 11/07/24 Mary Ann Matthew [place] [facility] Endocrinology [address] [place] [address] Endocrinology 10/14/24 Derrick Mullen, DPVannesa 175 [place] [address] Podiatry 11/07/24 documented as of this encounter
--- OUTSIDE RECORDS SUMMARY | 2025-02-22 18:16 | XMS_ITS | Encounter Summary ---
Author Organization [employer] Address 75 [facility] 7t [place] [address] Care Team Providers Care Batch Unloader Name Role Phone Hazel Kilgore MD Primary Care Provider +1- [phone] Tee Shay MD Unavailable [phone] Nia Borja Unavailable [phone] Encounter Details Date Type Department Care Team (Late st Contact Info) Description 03/19/2023 Orders Only [facility] CHC MED & PEDS [address] [place] [address] Amaya Garcia LPN Social History Tobacco Use [...] Info) Description 03/27/2025 10:45 AM EDT Telemedicine [facility] MEDICINE 230 [place] [address] Hazel Kilgore MD 230 [place], [place] [phone] documented as of this encounter Visit Diagnoses Not on filedocumented in this encounter Care Teams Batch Unloader Relationship Specialty Start Date End Date Hazel Kilgore MD 230 [place], [place] [phone] PCP - General Family Medicine 11/09/18 Tee Shay MD [address] [place] [address] Nephrology 11/07/24 Nia Borja [address] [place] [address] Cardiology 11/07/24 Mary Ann Matthew [place] [facility] Endocrinology 3300 [facility] Endocrinology 10/14/24 Derrick Mullen, MADIHA 175 [place] [address] Podiatry 11/07/24 documented as of this encounter
--- OUTSIDE RECORDS SUMMARY | 2025-02-22 18:16 | XMS_ITS | Encounter Summary ---
Author Organization [employer] Address 75 [facility] 7t [place] [address] Care Team Providers Care Market Development Analyst Name Role Phone Hazel Kilgore MD Primary Care Provider +1- [phone] Tee Shay MD Unavailable [phone] Nia Borja Unavailable [phone] Encounter Details Date Type Department Care Team (Late st Contact Info) Description 08/04/2023 Orders Only [facility] CHC MED & PEDS [address] [place] [address] Renata Lerner LPN Social History Tobacco Use [...] 03/27/2025 10:45 AM EDT Telemedicine [facility] MEDICINE 230 [place], [place] [phone] Hazel Kilgore MD 230 [place], [place] [phone] documented as of this encounter Visit Diagnoses Not on filedocumented in this encounter Additional Health Concerns Assessment Noted Time PHQ-9 Depression Total Score: 0 07/03/20 23 9:07 AM EDT documented as of this encounter Care Teams Market Development Analyst Relationship Specialty Start Date End Date Hazel Kilgore MD 230 [place] [address] PCP - General Family Medicine 11/09/18 Tee Shay MD [address] [place] [address] Nephrology 11/07/24 Nia Borja [address] [place] [address] [address] [place] [address] Cardiology 11/07/24 Mary Ann Matthew [place] [facility] Endocrinology 3300 [facility] Endocrinology 10/14/24 Derrick Mullen, DPVannesa 175 [place] [address] Podiatry 11/07/24 documented as of this encounter
--- OUTSIDE RECORDS SUMMARY | 2025-02-22 18:16 | XMS_ITS | Encounter Summary ---
Author Organization [employer] Address 75 [facility] 7t [place] [address] Care Team Providers Care Nailer Machine Name Role Phone Hazel Kilgore MD Primary Care Provider [phone]- [phone] Tee Shay MD Unavailable [phone] Nia Borja Unavailable [phone] Encounter Details Date Type Department Care Team (Late st Contact Info) Description 04/10/2023 Orders Only [facility] CHC MED & PEDS [address] [place] [address] Amaya Garcia LPN Social History Tobacco Use [...] Info) Description 03/27/2025 10:45 AM EDT Telemedicine [facility] MEDICINE 230 [place] [address] Hazel Kilgore MD 230 [place], [place] [phone] documented as of this encounter Visit Diagnoses Not on filedocumented in this encounter Care Teams Nailer Machine Relationship Specialty Start Date End Date Hazel Kilgore MD 230 [place], [place] [phone] PCP - General Family Medicine 11/09/18 Tee Shay MD [address] [place] [address] Nephrology 11/07/24 Nia Borja [address] [place] [address] Cardiology 11/07/24 Mary Ann Matthew MA [facility] Endocrinology 3300 [facility] Endocrinology 10/14/24 Derrick Mullen, MADIHA 175 [place] [address] Podiatry 11/07/24 documented as of this encounter
--- OUTSIDE RECORDS SUMMARY | 2025-02-22 18:16 | XMS_ITS | Encounter Summary ---
Author Organization [employer] Address [address] [facility] [address] [place] [address] Care Team Providers Care Mold Maker Helper Name Role Phone Hazel Kilgore MD Primary Care Provider +1- [phone] Tee Shay MD Unavailable [phone] Nia Borja Unavailable [phone] Encounter Details Date Type Department Care Team (Late st Contact Info) Description 08/20/2023 Orders Only [facility] MEDICINE 230 [place], [place] [phone] Hazel Kilgore MD 230 [place], [place] [phone] Social History Tobacco Use Types Packs/Day Years [...] Info) Description 03/27/2025 10:45 AM EDT Telemedicine [facility] MEDICINE 230 [place] [address] Hazel Kilgore MD 230 [place] [address] documented as of this encounter Visit Diagnoses Not on filedocumented in this encounter Additional Health Concerns Assessment Noted Time PHQ-9 Depression Total Score: 0 07/03/20 23 9:07 AM EDT documented as of this encounter Care Teams Mold Maker Helper Relationship Specialty Start Date End Date Hazel Kilgore MD 230 [place] [address] PCP - General Family Medicine 11/09/18 Tee Shay MD [address] [place] [address] Nephrology 11/07/24 Nia Borja 3300 [facility] [address] [place] [address] Cardiology 11/07/24 Mary Ann Matthew [place] [facility] Endocrinology 3300 [facility] Endocrinology 10/14/24 Derrick Mullen, DPM 175 [place] [address] Podiatry 11/07/24 documented as of this encounter
--- OUTSIDE RECORDS SUMMARY | 2025-02-22 18:16 | XMS_ITS | Patient Health Record ---
Author Organization [facility] Address [address] [place] [address] Care Team Providers Care Precision Lens Grinder Apprentice Name Role Phone Hazel Kilgore MD Primary Care Provider Aaron Cloud Unavailable [phone] Reason For Referral No Information Medications Medication SIG (Take, Route, Frequency, Duration) Notes Start Date End Date Status Isosorbide Mononitrate ER 30 MG TAKE 1 TABLET EVERY MORNING Oral for 30 Active LORazepam 0.5 MG (Schedule IV Drug) T SANDRA 1 TABLET BY MOUTH ONCE DAILY NEEDED Oral for 30 Active Omeprazole 20 MG TAKE 1 CAPSULE EVERY MORNING WITH A MEAL Oral for 30 Active Doxycycline Hyclate 100 MG TAKE ONE CAPSULE BY MOUTH TWICE A DAY FOR 7 DAYS Oral for 7 Active Doxazosin Mesylate 4 MG TAKE 1 TABLET EV MARIA ESTHER MORNING Oral for 30 Active Calcium Carbonate-Vitamin D 600-400 MG-UNIT TAKE 1 TABLET TWICE DAILY IN THE MORNING AND IN THE EVENING Oral for 30 Active Furosemide 40 MG TAKE 1 TABLET TWICE DAILY IN THE MORNING AND IN THE EVENING Oral for 90 Active levoFLOXacin 750 MG TAKE 1 TABLET BY ASHANTI TH EVERY DAY Oral for 10 Active Calcium Carbonate-Vitamin D 600-400 MG-UNIT TAKE 1 TABLET TWICE DAILY IN THE MORNING AND IN THE EVENING Oral for 30 Active Basaglar KwikPen 100 UNIT/ML INJECT 42 UNITS SUBCUTANEOUSLY AT BEDTIME Subcutaneous for 34 Active Silver sulfADIAZINE 1 % APPLY TO WOUND W ITH DRY STERILE DRESSING External for 7 Active Rosuvastatin Calcium 20 MG TAKE 1 TABLET AT BEDTIME Oral for 30 Active traMADol HCl 50 MG (Schedule IV Drug) T SANDRA 1 TABLET BY MOUTH EVERY 8 HOURS NEEDED Oral for 30 Acti ve Senna 8.6 MG TAKE 2 TABLETS EVERY DAY AT BEDTIME Oral for 30 Active NovoLOG FlexPen 100 UNIT/ML INJECT 0-4 UNITS BEFORE BREAKFAST, INJECT 12-14 UNITS BEFORE LUNCH, AND INJECT 14-16 UNITS BEFORE SUPPER Subcutaneous for 39 Activ e Ferrous Sulfate 325 (65 Fe) MG TAKE 1 TABLET THREE TIMES DAILY IN THE MORNING, AT NOON, AND IN THE EVENING Oral for 30 Active SM Aspirin Adult Low Strength 81 MG TAKE 1 TABLET EVERY MORNING Oral for 30 Active Gabapentin 600 MG TAKE 1 TABLET THREE TIMES DAILY IN THE MORNING, EVENING, AND BEDTIME Oral for 30 Active Vitamin C 500 MG TAKE 1 TABLET TWICE DAILY IN THE MORNING AND IN THE EVENING Oral for 30 Active metFORMIN HCl ER 500 MG TAKE 1 TABLET EV MARIA ESTHER EVENING WITH A MEAL Oral for 30 Active Flovent HFA 110 MCG/ACT INHALE 1 PUFF BY MOUTH TWICE DAILY RINSE MOUTH AFTER USING. Inhalation for 60 Active DOK 100 MG TAKE 1 CAPSULE TWICE DAILY IN THE MORNING AND AT BEDTIME Oral for 30 Active amLODIPine Besylate 5 MG TAKE 1 TABLET B Y MOUTH EVERY DAY Oral for 90 Active Immunizations Vaccine Route Administration Date Status Comme nts Influenza Unknown 08/09/2018 Administered Social History Tobacco Use: Social History Observation Description Date Details (start date - stop date) Former Smoker NA - NA Tobacco Use/Smoking Question Answer Notes Patient is a former smoker When did you stop smoking? 25 years ago How long has it been since you last smoked? > 10 years Alcohol Screen Question Answer Notes Did you have a drink containing alcohol in the p ast year? No Points 0 Interpretation Negative Section Notes: Nonsmoker; no sig. alcohol Problems Problem Type SNOMED Code ICD Code Onset Dates Problem Status W/U Status Risk Notes Problem 848445847 Encounter for screening for malignant neoplasm of colon (Z12.11) Active confirmed Problem 777635348 Long-term use of aspirin therapy (Z79.82) Active confirmed Problem [id number] Constipation, unspecified constipation type (K59.00) Active confirmed Plan Of Treatment Future Test Test Name Order Date COLONOSCOPY 09/14/2018 Next Appt Details Provider Name:Aaron Almazan , 05/18/2025 10:40:00 AM, [address] [place] [address], [address], [place], [address], Insurance Providers Payer Name Payer Address Payer Phone Subscriber Number Group Number Insured Name Patient Relationship to Insured Coverage Start Date Coverage End Date [facility] [address] [place] [address] [id number] INNA MACIAS Self - patient is the insured Medical (General) History Medical History History ICD Code Stage 3 kidney disease--Dr. Shay IDDM Hx of uterine cancer--2016--surgery and chemo at [facility] Back pain--scheduled for a pain stimulat or insertion for 10/2018 Negative colonoscopy in 2006 EGD in 2006--- questionable duodenal biopsies in regard to possible celiac disease, but celiac disease serologies were negative and she was never started on a gluten-free diet Neg SB capsule tudy in 2006--for eval of Iron def anemia HTN Hyperlipidemai urinary incontinence Denies MA or CVA Surgical History Surgery Date(Month/Year) NICOLAS--uterine cancer 2016 Back pain stimulator being placed in 2017
--- OUTSIDE RECORDS SUMMARY | 2025-02-22 18:16 | XMS_ITS | Encounter Summary ---
Author Organization [facility] Address [address] [facility] [address] [place] [address] Phone Care Team Providers Care Xray Tech Name Role Phone Magui, Hazel Soriano MD Primary Care Provider U navailable Reason for Visit * Reason Comments Med Refill Encounter Details Date Type Department Care Team (Late st Contact Info) Description 04/24/2022 Refill [facility] [address] [place] [address] Tee Shay MD [address] [facility] [address] [place] [address] Social History Tobacco Use Types [...] on filedocumented in this encounter Care Teams Xray Tech Relationship Specialty Start Date End Date Hazel Kilgore MD [address] [place] [address] PCP - General 11/19/20 documented as of this encounter
--- OUTSIDE RECORDS SUMMARY | 2025-02-22 18:16 | XMS_ITS | Clinical Summary ---
Author Organization [facility] Address [address] [address] Phone Care Team Providers Care Psych Therapist Name Role Phone Hazel Kilgore MD Primary [...] Telemedicine [facility] [address] [place] [address] Tee Shay MD 12/07/2024 Refill [facility] [address] [place] [address] Tee Shay MD Stage 3b chronic kidney disease (HCC); Renal disorder due to type 2 diabetes mellitus <Diabetic nephropathy> (HCC) from Last 3 Months Immunizations Immunization Administration Dates Next Due Hepatitis B 09/22/2014,10/19/2009,09/17/2009 [...] Due Date Last Done Comments Pneumococcal Vaccine: 50+ Years (2 of 2 - PCV) 05/04/2015 05/04/2014 Diabetes: Ophthalmology Exam 12/10/2020 Diabetes: Pedal Pulse Checked 12/10/2020 Diabetes: Sensory Foot Exam 12/10/2020 Diabetes: Visual Foot Exam 12/10/2020 Diabetes: Hemoglobin A1C 02/19/2025 025, 02/26/2024, 01/17/2021 Pneumococcal Vaccine: Peds (0 to 5 Years) and At-Risk Patients (6 to 49 Years) Discontinued 05/04/2014 Hepatitis B Vaccine Aged Out 09/22/2014, 10/19/2009, 09/17/2009 No longer eligible based on patient's age to complete this topic Influenza Vaccine Completed 11/21/2024, , 01/19/2020, Additional history exists Insurance [facility] ([id number]) HENOK MICHELLE [id number] [facility] ([id number]) Care Teams Psych Therapist Relationship Specialty Start Date End Date Magui, Hazel Soriano MD [address] [place] [address] PCP - General 11/19/20
--- OUTSIDE RECORDS SUMMARY | 2025-02-22 18:16 | XMS_ITS | Encounter Summary ---
Author Organization [facility] Address [address] [facility] 7t [place] [address] Care Team Providers Care Television Schedule Coordinator Name Role Phone Hazel Kilgore MD Primary Care Provider [phone] Tee Shay MD Unavailable [phone] Nia Borja Unavailable [phone] Encounter Details Date Type Department Care Team (Late st Contact Info) Description 12/26/2022 Abstract [facility] MEDICINE [address] [place] [address] [phone] Hazel Kilgore MD [address] [place] [address] [phone] Social History Tobacco Use Types Packs/Day Years [...] Info) Description 03/27/2025 10:45 AM EDT Telemedicine [facility] MEDICINE [address] [place] [address] [phone] Hazel Kilgore MD [address] [place] [address] [phone] documented as of this encounter Procedures Procedure [...] on filedocumented in this encounter Care Teams Television Schedule Coordinator Relationship Specialty Start Date End Date Hazel Kilgore MD [address] [place] [address] PCP - General Family Medicine 11/09/18 Tee Shay MD [address] [facility] [address] [place] [address] Nephrology 11/07/24 Nia Borja [address] [facility] [address] [place] [address] Cardiology 11/07/24 Mary Ann Matthew MA [facility] Endocrinology [address]00 [facility] Endocrinology 10/14/24 Derrick Mullen, DPM [address] [place] [address] Podiatry 11/07/24 documented as of this encounter
--- OUTSIDE RECORDS SUMMARY | 2025-02-22 18:16 | XMS_ITS | Encounter Summary ---
Author Organization [employer] Address [address] [facility] [address] 7[address] [place] [address] Care Team Providers Care Labeling Strategist Name Role Phone Hazel Kilgore MD Primary Care Provider [phone] Tee Shay MD Unavailable [phone] Nia Borja Unavailable [phone] Reason for Visit * Reason Onset Date Comments Referral 09/04/2023 Encounter Details Date Type Department Care Team (Late st Contact Info) Description 09/04/2023 Telephone [facility] MEDICINE [address] [place], [place] [phone] Hazel Kilgore MD [address] [place], [place] [phone] Referral Social History Tobacco Use Types Packs/Day [...] Podiatry specialist. [facility] Address [address] [place] [address] documented in this encounter Plan of Treatment Upcoming Encounters Date Type Department Care Team (Late st Contact Info) Description 03/27/2025 10:45 AM EDT Telemedicine [facility] MEDICINE [address] [place] [address] Hazel Kilgore MD [address] [place] [address] documented as of this encounter Visit Diagnoses Not on filedocumented in this encounter Additional Health Concerns Assessment Noted Time PHQ-9 Depression Total Score: 0 07/03/20 23 9:07 AM EDT documented as of this encounter Care Teams Labeling Strategist Relationship Specialty Start Date End Date Hazel Kilgore MD [address] [place] [address] PCP - General Family Medicine 11/09/18 Tee Shay MD [address] [place] [address] Nephrology 11/07/24 Nia Borja [address] [facility] [address]LO[address] [place] [address] Cardiology 11/07/24 Mary Ann Matthew [place] [facility] Endocrinology [address] [facility] Endocrinology 10/14/24 Derrick Mullen, DPM [address] [place] [address] Podiatry 11/07/24 documented as of this encounter
--- OUTSIDE RECORDS SUMMARY | 2025-02-22 18:16 | XMS_ITS | Encounter Summary ---
Author Organization [employer] Address [address] [facility] 7t [place] [address] Care Team Providers Care Wiener Packer Name Role Phone Hazel Kilgore MD Primary Care Provider [phone] Tee Shay MD Unavailable [phone] Nia Borja Unavailable [phone] Encounter Details Date Type Department Care Team (Late st Contact Info) Description 07/15/2023 Orders Only [facility]ED[facility] [address] [place], [place] [phone] Amaya Garcia LPN Social History Tobacco Use [...] Info) Description 03/27/2025 10:45 AM EDT Telemedicine [facility] MEDICINE [address] [place], [place] [phone] Hazel Kilgore MD [address] [place], [place] [phone] documented as of this encounter Visit Diagnoses Not on filedocumented in this encounter Additional Health Concerns Assessment Noted Time PHQ-9 Depression Total Score: 0 07/03/20 23 9:07 AM EDT documented as of this encounter Care Teams Wiener Packer Relationship Specialty Start Date End Date Hazel Kilgore MD [address] [place] [address] PCP - General Family Medicine 11/09/18 Tee Shay MD [address] [place] [address] Nephrology 11/07/24 Nia Borja [address] [facility] [address] [place] [address] Cardiology 11/07/24 Mary Ann Matthew MA [facility] Endocrinology 3300 [facility] Endocrinology 10/14/24 Derrick Mullen DPM [address] [place] [address] Podiatry 11/07/24 documented as of this encounter
--- OUTSIDE RECORDS SUMMARY | 2025-02-22 18:16 | XMS_ITS | Encounter Summary ---
Author Organization [employer] [facility] Address [address] [facility] 7t [place] [address] Care Team Providers Care Radial Arm Saw Operator Name Role Phone Hazel Kilgore MD Primary Care Provider Tee Shay MD Unavailable [phone] Nia Borja Unavailable [phone] Encounter Details Date Type Department Care Team (Late st Contact Info) Description 10/30/2022 Orders Only [facility] [address] [place] [address] Renata Lerner LPN Social History Tobacco Use [...] Info) Description 03/27/2025 10:45 AM EDT Telemedicine [facility] MEDICINE [address] [place] [address] Hazel Kilgore MD [address] [place], [place] [phone] documented as of this encounter Visit Diagnoses Not on filedocumented in this encounter Care Teams Radial Arm Saw Operator Relationship Specialty Start Date End Date Hazel Kilgore MD [address] [place] [address] [phone] PCP - General Family Medicine 11/09/18 Tee Shay MD [address] [place] [address] Nephrology 11/07/24 Nia Borja [address] [place] [address] Cardiology 11/07/24 Mary Ann Matthew MA [facility] Endocrinology 3300 [facility] Endocrinology 10/14/24 Derrick Mullen, DPVannesa [address] [place] [address] Podiatry 11/07/24 documented as of this encounter
--- OUTSIDE RECORDS SUMMARY | 2025-02-22 18:17 | XMS_ITS | Clinical Summary ---
Author Organization [employer] Address [address] [facility] [address] [place] [address] Care Team Providers Care Financial Examiner Name Role Phone Hazel Kilgore MD Primary Care Provider [phone] Tee Shay MD Unavailable [phone] Nia Borja Unavailable Allergies No known active allergies Medications TRUEplus Lancets 33G miscIndications:T ype 2 diabetes mellitus with other specified complication, with long-term current use of insulin ([facility]) TEST BLOOD SUGAR SIX TIMES DAILY 100 each 11 024 Active Ascorbic Acid (vitamin C) 500 MG tabletIndications :Iron deficiency TAKE 1 TABLET BY MOUTH TWICE DAILY IN THE MORNING AND AT BEDTIME 60 tablet 11 Active Sure Comfort Pen Bucklin 31G X 5 MM miscIndications:T ype 2 diabetes mellitus with other specified complication, with long-term current use of insulin ([facility]) USE DIRECTED FOUR TIMES DAILY 100 each 11 024 Active aspirin (Aspirin Low Dose) 81 MG EC tabletIndications :Atrial fibrillation with RVR ([facility]) Per cardiology Active dapagliflozin (Farxiga) 10 MGIndications:Typ e 2 diabetes mellitus with stage 3a chronic kidney disease, unspecified whether lobsterman insulin use ([facility]) Take 1 tablet by mouth. Active doxazosin (Cardura) 4 MG tabletIndications :Hypertension, unspecified type Take 1.5 tablets by mouth at bedtime. 024 Active insulin glargine (Lantus SoloStar) 100 UNIT/ML penIndications:Ty pe 2 diabetes mellitus with stage 3a chronic kidney disease, unspecified whether fpc insulin use ([facility]) Inject 30 units subcutaneously daily 15 mL Active insulin aspart (NovoLOG FLEXPEN) 100 UNIT/ML penIndications:Ty pe 2 diabetes mellitus with stage 3a chronic kidney disease, unspecified whether lobsterman insulin use ([facility]) Inject 6-7 units tid before meals sc 15 mL Active dulaglutide (Trulicity) 3 MG/0.5ML solution pen-injectorIndic ations:Type 2 diabetes mellitus with stage 3a chronic kidney disease, unspecified whether lobsterman insulin use ([facility]) Inject 3 mg under the skin 1 (one) time per week. Per endocrinology Active traMADol (Ultram) 50 MG tabletIndications :Back pain, unspecified back location, unspecified back pain laterality, unspecified chronicity Take by mouth. For back pain from specialist Active mirabegron ER (Myrbetriq) 50 MG 24 hr tabletIndications :Urinary incontinence, unspecified type Take 50 mg by mouth at bedtime. Do not crush, chew, or split. From urology Active metoprolol succinate XL (Toprol-XL) 25 MG 24 hr tabletIndications :Hypertension, unspecified type,Atrial fibrillation with RVR ([facility]) Take 1 tablet (25 mg) by mouth Once per day. 90 tablet Active LORazepam (Ativan) 0.5 MG tabletIndications :Tremor Take by mouth. From neruology Active gabapentin (Neurontin) 600 MG tabletIndications :Neuropathy Take by mouth. Per specialist tid Active FREESTYLE LITE test stripIndications: Type 2 diabetes mellitus with stage 3a chronic kidney disease, unspecified whether fpc insulin use ([facility]) Use bid prn 150 strip Active furosemide (Lasix) 40 MG tabletIndications :Hypertension, unspecified type Take by mouth. Per nephrology Active fluticasone (Flovent HFA) 110 MCG/ACT inhalerIndication s:Type 2 diabetes mellitus with stage 3a chronic kidney disease, unspecified whether lobsterman insulin use ([facility]),Chronic bronchitis, unspecified chronic bronchitis type ([facility]) Rinse mouth with water after use to reduce aftertaste and incidence of candidiasis. Do not swallow. 48 g 3 024 Active Eliquis 5 MG tabletIndications :Atrial fibrillation with RVR (CMS/HCC) Take 1 tablet (5 mg) by mouth 2 times daily. 60 tablet 11 024 Active prednisoLONE acetate (Pred-Forte) 1 % ophthalmic suspensionIndicat ions:Open-angle glaucoma, unspecified glaucoma stage, unspecified laterality, unspecified open-angle glaucoma type INSTILL 1 DROP INTO RIGHT EYE TWICE A DAY 024 Active senna (Senokot) 8.6 MG tabletIndications :Constipation, unspecified constipation type Take 1 tablet (8.6 mg) by mouth if needed at bedtime for constipation. 60 tablet 2 025 Active docusate sodium (Colace) 100 MG capsuleIndication s:Constipation, unspecified constipation type TAKE 1 CAPSULE BY MOUTH TWICE DAILY IN THE MORNING AND AT BEDTIME 60 capsule 3 025 Active Aspirin EC Adult Low Dose 81 MG EC tabletIndications :Type 2 diabetes mellitus with other specified complication, with long-term current use of insulin ([facility]) TAKE 1 TABLET BY MOUTH AT BEDTIME 90 tablet 1 025 Active Calcium + Vitamin D3 600-10 MG-MCG tabletIndications :Renal osteodystrophy TAKE 1 TABLET BY MOUTH TWICE DAILY IN THE MORNING AND AT BEDTIME 180 tablet 1 025 Active omeprazole (PriLOSEC) [address] capsuleIndication s:Gastroesophagea l reflux disease, unspecified whether esophagitis present TAKE 1 CAPSULE BY MOUTH EVERY MORNING BEFORE BREAKFAST 90 capsule 1 025 Active isosorbide mononitrate ER (Imdur) 30 MG 24 hr tabletIndications :Primary hypertension TAKE 1 TABLET BY MOUTH EVERY MORNING 90 tablet 1 025 Active amLODIPine (Norvasc) 5 MG tabletIndications :Primary hypertension Take 5 mg by mouth 2 times daily. 017 2024 Active erythromycin (Romycin) 5 MG/GM ophthalmic ointmentIndicatio ns:Conjunctival Infection Apply Amount per Dose: 0.25 inch (~0.5 cm) per dose. TID for 1 week. 15 g 025 Active rosuvastatin (Crestor) 20 MG tabletIndications :Type 2 diabetes mellitus with stage 3b chronic kidney disease, with long-term current use of insulin ([facility]),Hyperli pidemia, unspecified hyperlipidemia type TAKE 1 TABLET BY MOUTH AT BEDTIME 90 tablet 3 025 Active ferrous sulfate 325 (65 Fe) MG EC tabletIndications :Iron deficiency TAKE 1 TABLET BY MOUTH THREE TIMES DAILY IN THE MORNING, AT NOON, AND IN THE EVENING 90 tablet 025 Active rosuvastatin (Crestor) 20 MG tabletIndications :Type 2 diabetes mellitus with stage 3b chronic kidney disease, with long-term current use of insulin ([facility]),Hyperli pidemia, unspecified hyperlipidemia type TAKE 1 TABLET BY MOUTH AT BEDTIME 90 tablet 3 024 2024 Discontinued ferrous sulfate 325 (65 Fe) MG EC tabletIndications :Iron deficiency TAKE 1 TABLET BY MOUTH THREE TIMES DAILY IN THE MORNING, AT NOON, AND IN THE EVENING 90 tablet 025 2024 Discontinued Active Problems Patient Care Coordination No te Formatting of this note migh t be different from the original. [facility] Event Staff Member: 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 Suspect influence of iron supplements and Colace, recommending stopping those for time being until diarrhea clears, -Ordered Stool panel, Albumin Cr ratio, HFP, A1C, FLP and BMP, mostly unremarkable, called lab for C Diff results, they reported never getting order, order was placed will see if specimen can be reused 01/20/25 -Advised on adequate hydration. -referred to GI 01/20/25 Assessment & Plan (01/20/2025 10:41 AM EDT): Unknown etiology. Suspect influence of iron supplements and Colace, recommending stopping those for time being until diarrhea clears, -Ordered Stool panel, Albumin Cr ratio, HFP, A1C, FLP and BMP, mostly unremarkable, calling lab for C Diff results 01/20/25 -Advised on adequate hydration. -referred to GI 01/20/25 Assessment & Plan (01/10/2025 11:20 AM EST): [...] She will be set up with a highway engineering technician to evaluate for atrial fibrillation burden. -Echocardiogram with Evita Sevilla MD : The left ventricle is normal in size. Ejection fraction is 55-60%. The basal inferior wall is akinetic. Grade II diastolic dysfunction.The left atrium is mildly dilated.The right ventricle is normal in size. Function is preserved.The right atrium is normal in size. -seen by cardiology [facility] Attending Physician: Jonh TORREZ, Upjfzy10/2023 -continue Aspirin 81 MG -continue Metoprolol Succinate [...] She will be set up with a highway engineering technician to evaluate for atrial fibrillation burden. -Echocardiogram with Evita Sevilla MD : The left ventricle is normal in size. Ejection fraction is 55-60%. The basal inferior wall is akinetic. Grade II diastolic dysfunction.The left atrium is mildly dilated.The right ventricle is normal in size. Function is preserved.The right atrium is normal in size. -seen by cardiology [facility] Attending Physician: Rigo Borja NP -continue [...] She will be set up with a highway engineering technician to evaluate for atrial fibrillation burden. Other specified health status 08/05/2023 Overview (11/21/2024): -next physical exam due after 11/21/2025 -eye care facilitated by Dr. Stubbs at [facility], seen 06/2024 -dental home is [facility] care proxy on file 12/03/23 Assessment & Plan (11/21/2024 12:46 PM EST): -next physical exam due after 11/21/2025 -eye care facilitated by Dr. Stubbs at [facility], seen 06/2024 -dental home is [place] [facility] care proxy on file 12/03/23 Assessment & Plan (07/01/2024 11:04 AM EDT): -next physical exam due after 08/12/2024 -eye care facilitated by Dr. Stubbs seen 11/2023 -dental home is [place] [facility] care proxy on file 12/03/23 Assessment & Plan (08/12/2023 1:17 PM EDT): -next physical exam due after 08/12/2024 -eye care facilitated by Dr. Stubbs -dental home is [place] History of endometrial cancer 12/19/2021 Overview (08/05/2023): [...] residual on most recent CT. 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 Assessment & Plan (07/01/2024 11:04 AM [...] residual on most recent CT. 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 Assessment & Plan (08/05/2023 10:03 AM [...] residual on most recent CT. 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 Urinary incontinence 12/19/2021 Anemia of chronic [...] trying to get her a scooter. Her case investigator is Cris Ibarra , phone #: [phone]. Was last seen on 04/2019 by [employer] [...] trying to get her a scooter. Her case investigator is Cris Ibarra , phone #: [phone]. Was last seen on 04/2019 by [employer] [...] (01/10/2025): Diabetes is controlled. Followed at Endocrinology [facility] with HENOK King note from 10/13/24 reviewed Lab Results Component Value Date HGBA1C 8.5 (A) 11/21/2024 HGBA1C 7.8 (H) 07/21/2024 HGBA1C 8.5 (A) 07/01/2024 - Lab Results Component Value Date CREATININE 1.07 08/11/2024 EGFR 49 08/11/2024 MICROALBCREU 61.4 (H) 07/21/2024 MICROALBCREU 13.3 08/13/2023 LDLCHOLCAL 65 07/21/2024 -Juliano/Arb: none due to hx hyperkalemia -Statin therapy: rosuvastatin 20mg -Diabetic eye exam: with [facility] 06/2024 -Diabetic foot exam: 1via podiatry with Raymond Mullen done 11/16/23 -Continue lifestyle modifications -Continue current medications -Farxiga 10 qam -Trulicity 3 MG -Lantus 30 units -Novolog 5 or 6 qac Assessment & Plan (01/10/2025 11:21 AM EST): Diabetes is controlled. Followed at Endocrinology [facility] with HENOK King note from 10/13/24 reviewed Lab Results Component Value Date HGBA1C 8.5 (A) 11/21/2024 HGBA1C 7.8 (H) 07/21/2024 HGBA1C 8.5 (A) 07/01/2024 - Lab Results Component Value Date CREATININE 1.07 08/11/2024 EGFR 49 08/11/2024 MICROALBCREU 61.4 (H) 07/21/2024 MICROALBCREU 13.3 08/13/2023 LDLCHOLCAL 65 07/21/2024 -Juliano/Arb: none due to hx hyperkalemia -Statin therapy: rosuvastatin 20mg -Diabetic eye exam: with Dr. Stubbs, [facility] 06/2024 -Diabetic foot exam: [...] EST): Diabetes is controlled. Followed at Endocrinology [facility] Lab Results Component Value Date HGBA1C [...] at home. PAP smear: UTD. Fu'd by TELEVISION PRODUCER due to hx malignancy Mammogram:UTD, no need [...] Encounters Date Type Department Care Team Description 02/15/2025 Telephone [facility] MEDICINE [address] [place] [phone] Hazel Kilgore MD Lab order Question 02/15/2025 Refill [facility] PEDS [address] [place] [address] Hazel Kilgore MD Iron deficiency 02/14/[address] [address] Hzael Kilgore MD Referral; Lab Orders 02/14/[address] [address] Hazel Kilgore MD 02/14/2025 Orders Only [address] [address] Hazel Kilgore MD Diarrhea, unspecified type (Primary Dx) 02/02/2025 Refill [facility] [address] [place] [address] Hazel Kilgore MD Type 2 diabetes mellitus with stage 3b chronic kidney disease, with long-term current use of insulin ([facility]); Hyperlipidemia, unspecified hyperlipidemia type 01/20/2025 11:30 AM EDT Telemedicine [address] [address] Hazel Kilgore MD Diarrhea, unspecified type (Primary Dx) 01/20/2025 Travel 01/20/[address] [address] Hazel Kilgore MD Lab Orders 01/19/2025 Refill [facility] [address] [place] [address] Hazel Kilgore MD Type 2 diabetes mellitus with stage 3a chronic kidney disease, unspecified whether lobsterman insulin use (CMS/[facility]) 01/13/2025 Refill [facility] [address] [place] [address] Hazel Kilgore MD Iron deficiency 01/10/2025 11:00 AM EST Office Visit [facility] [address] [place] [phone] Hazel Kilgore MD Diarrhea, unspecified type (Primary Dx); Acute conjunctivitis of right eye, unspecified acute conjunctivitis type; Primary hypertension; Type 2 diabetes mellitus with other specified complication, with long-term current use of insulin (CMS/HCC) 01/10/2025 Travel 01/08/2025 Refill [facility] [address] [place] [address] Hazel Kilgore MD Primary hypertension 12/19/2024 Telephone [facility] [address] [place] [phone] Hazel Kilgore MD [employer] (Pad, 1 Pad prevail, Surcr cardinal protect LG) 12/16/2024 Telephone [facility] [address] [place] [phone] Hazel Kilgore MD Durable Medical Equipment (Incont supplies) 12/09/2024 Refill [facility] [address] [place] [address] Hazel Kilgore MD Iron deficiency 12/07/2024 Refill [facility] [address] [place] [phone] Hazel Kiglore MD Type 2 diabetes mellitus with other specified complication, with long-term current use of insulin ([facility]); Renal osteodystrophy; Gastroesophageal reflux disease, unspecified whether esophagitis present 12/04/2024 Refill [facility] [address] [place] [address] Hazel Kilgore MD Constipation, unspecified constipation type from Last 3 Months Immunizations Name Administration [...] Info) Description 03/27/2025 10:45 AM EDT Telemedicine [facility] [address] [place] [address] Hazel Kilgore MD [address] [place] [address] Health Maintenance Due Date Last Done Comments SDOH Screening 02/16/2025 02/17/2024 Diabetes: Hemoglobin A1C 04/12/2025 025, 11/21/2024, 07/21/2024, Additional history exists Alcohol/Substance Use Screening 11/21/2025 11/21/2024 Depression Screening 11/21/2025 11/21/2024, 11/21/19 Diabetes: Foot Exam 11/21/2025 11/21/2024, 11/21/2024, 11/21/2024, [...] Procedure Name Priority Date/Time Associated Diagnosis Comments GASTROINTESTINAL PANEL Routine 5 10:30 AM EST Diarrhea, unspecified type Type 2 diabetes mellitus with other specified complication, with long-term current use of insulin (CMS/[facility]) TSH W/REFLEX TO FT4 Routine 01/10/2025 1 1:39 AM EST Diarrhea, unspecified type CBC WITH AUTO DIFFERENTIAL Routine 01/10/2025 11:39 AM EST Diarrhea, unspecified type BASIC METABOLIC PANEL Routine 01/10/2025 11:39 AM EST Diarrhea, unspecified type Type 2 diabetes mellitus with other specified complication, with long-term current use of insulin ([facility]) HEMOGLOBIN A1C Routine 01/10/2025 11:39 AM EST Type 2 diabetes mellitus with other specified complication, with long-term current use of insulin ([facility]) LIPID PANEL, STANDARD Routine 01/10/2025 11:39 AM EST Type 2 diabetes mellitus with other specified complication, with long-term current use of insulin ([facility]) HEPATIC FUNCTION PANEL Routine 11:39 AM EST Diarrhea, unspecified type Type 2 diabetes mellitus with other specified complication, with long-term current use of insulin ([facility]) ALBUMIN, RANDOM URINE W/CREATININE Routine 01/10/2025 11:39 AM EST Diarrhea, unspecified type Type 2 diabetes mellitus with other specified complication, with long-term current use of insulin ([facility]) POCT INFLUENZA B Routine 01/10/2025 11:1 6 AM EST Diarrhea, unspecified type POCT INFLUENZA A Routine 01/10/2025 11:1 6 AM EST Diarrhea, unspecified type POCT RAPID COVID ANTIGEN Routine 025 11:05 AM EST Diarrhea, unspecified type HM DIABETES EYE EXAM Routine 04/22/2024 3:23 PM EDT from Last 3 Months or Most Recently Relevant to Health Maintenance Results * Stool - Gastrointestinal panel (01/12/2025 10:30 AM EST) Campylobacter Not Detected Not Detect. [facility] Plesiomonas shigelloides Not Detected Not Detect. [facility] Salmonella Not Detected Not Detect. [facility] Vibrio Not Detected Not Detect. [facility] Vibrio cholerae Not Detected Not Detect. [facility] YERSINIA ENTEROCOLITICA Not Detected Not Detect. [facility] Enteroaggregative E. coli (EAEC) Not Detected Not Detect. [facility] Enteropathogenic E. coli (EPEC) Not Detected Not Detect. [facility] Enterotoxigenic E. coli (ETEC) lt/st Not Detected Not Detect. [facility] Shiga-like toxin-producing E. coli (STEC) stx1/stx2 Not Detected Not Detect. [facility] E coli O157 Not applicable Not Detect. [facility] Comment:E. coli containing t he O157 antigen are a subset ofShiga-like toxin- producing E. coli (STEC). Shigella/Enteroinvasive E. coli (EIEC) Not Detected Not Detect. [facility] Cryptosporidium Not Detected Not Detect. [facility] Cyclospora cayetanensis Not Detected Not Detect. [facility] Entamoeba histolytica Not Detected Not Detect. [facility] Giardia lamblia Not Detected Not Detect. [facility] Adenovirus F 40/41 Not Detected Not Detect. [facility] Astrovirus Not Detected Not Detect. [facility] Norovirus GI/GII Not Detected Not Detect. [facility] Rotavirus A Not Detected Not Detect. [facility] Sapovirus Not Detected Not Detect. [facility] Comment: All results must be correlated with clinical findings.Negative results do not exclude the possibility ofgastrointestinal infection and should not be used as thesole basis for diagnosis, treatment, or other managementdecisions. Virus, bacteria, and parasite nucleic acid maypersist in vivo independently of organism viability.Additionally, some organisms may be carriedasymptomatically.Detection of organism targets does not imply that thecorresponding organisms are infectious or are the causativeagents for clinical symptoms. There is a risk of falsenegative values due to the presence of sequence variants inthe gene targets of the assay, amplification inhibitors inspecimens, or inadequate numbers of organisms foramplification.The identification of several diarrheagenic E. colipathotypes has historically relied upon phenotypiccharacteristics. This panel targets genetic determinantscharacteristic of most pathogenic strains, but may notdetect all strains having phenotypic characteristics of apathotype.The performance of this test has not been established formonitoring treatment of infection with any of the panelorganisms.This assay is performed by Multiplexed PCR, utilizing [employer]. Stool Rectal contents / Unknown 01/12/2025 10:30 AM EST 01/12/2025 1:57 PM EST Hazel Kilgore MD LAB MICROBIOLOGY - GENERAL ORDERABLES Final Result Performing Organization Address City/[facility]/ZIP Co de Phone Number [facility] [address] [place] [phone] * TSH W/Reflex to FT4 (01/10/2025 11:39 AM EST) Pathologist [facility] TSH reflex Free T4 1.88 0.32 - 4.0 uIU/mL [facility] Blood Venous blood specimen / Unknown 01/10/2025 11:39 AM EST 01/10/2025 1:12 PM EST Hazel Kilgore MD LAB BLOOD ORDERABLES Final Result Performing Organization Address City/[facility]/ZIP Co de Phone Number [facility] [address] [place] [phone] * Albumin, Random Urine W/Creatinine (01/10/2025 11:39 AM EST) Creatinine, Urine 85.67 mg/dL [facility] Microalbumin Urine 12.0 mg/L [facility] Microalbum Creatinine Ratio Ur 14.0 <30 ug/mg cr [facility] Comment:Albumin/Creatinine R atio Reference Ranges: Normal: < 30 ug/mg creatinine Microalbuminuria: 30 - 300 ug/mg creatinineClinical Albuminuria: > 300 ug/mg creatinine Urine 01/10/2025 11:3 9 AM EST 01/10/2025 1:12 PM EST Hazel Kilgore MD LAB URINE ORDERABLES Final Result [facility] [address] [place] [address] [phone] * (ABNORMAL) CBC auto differential (01/10/2025 11:39 AM EST) White Blood Count 6.8 4.8 - 10.8 X10*3/uL [facility] Red Blood Count 5.10 4.20 - 5.50 X10*6/uL [facility] Hemoglobin 12.1 12.0 - 16.0 g/dl [facility] Hematocrit 41.3 37.0 - 47.0 % [facility] Mean Corpuscular Volume 81.0 80.0 - 98.0 fL [facility] Mean Corpuscular Hemoglobin 23.7(L) 27.0 - 33.0 pg [facility] Mean Corpuscular HGB Conc 29.3(L) 31.0 - 35.0 g/dl [facility] Red Cell Distribution Width 16.4(H) 11.0 - 16.0 % [facility] Platelet Count 163 160 - 400 X10*3/uL [facility] Mean Platelet Volume 12.2 9.4 - 12.3 fL [facility] Neutrophils Percent Auto 67.5 45 - 73 % [facility] Imm Gran Pct Auto 0.3 0.0 - 0.4 % [facility] Lymphocytes Percent Auto 21.6 20 - 40 % [facility] Monocytes Percent Auto 8.9 2 - 11 % [facility] Eosinophils Percent Auto 1.6 0 - 4 % [facility] Basophils Percent Auto 0.1 0 - 2 % [facility] NRBC Pct Auto 0.0 0.0 - 0.2 /100WBC [facility] Neutrophils Absolute Auto 4.6 2.0 - 8.3 x10*3/uL [facility] Imm Gran Abs Auto 0.02 0.00 - 0.03 X10*3/uL [facility] Lymphocytes Absolute Auto 1.5 1.2 - 4.9 X10*3/uL [facility] Monocytes Absolute Auto 0.6 0.1 - 1.2 X10*3/uL [facility] Eosinophils Absolute Auto 0.1 0.0 - 0.4 X10*3/uL [facility] Basophils Absolute Auto 0.0 0.0 - 0.2 X10*3/uL [facility] NRBC Abs Auto 0.000 0.0 - 0.012 X10*3/uL [facility] Blood Venous blood specimen / Unknown 01/10/2025 11:39 AM EST 01/10/2025 1:11 PM EST us Hazel Kilgore MD LAB BLOOD ORDERABLES Final Result [facility] [address] [place] [phone] * (ABNORMAL) Hemoglobin A1c (01/10/2025 11:39 AM EST) Hemoglobin A1c 7.6(H) <6.0 % [facility] Comment:Hemoglobin A1C Refer ence Range Adults: 4.8 - 6.0 % Non diabetic: < 6.0 % Goal: < 7.0 %Additional Action Suggested: > 8.0 %Note: Hemoglobin A1c results are invalid for patients with abnormal amounts of HbF. Blood transfusions may impact the HbA1c concentration in the patient sample. Estimated Average Glucose 171 mg/dL [facility] Comment:eAG = Estimated ave rage glucose which is %A1C expressed asaverage glucose, using the formula of the C5H-[id number] Glucose study (ADAG), Diabetes Care, Vol.31,#8,2007 Blood Venous blood specimen / Unknown 01/10/2025 11:39 AM EST 01/10/2025 1:12 PM EST Hazel Kilgore MD LAB BLOOD ORDERABLES Final Result Performing Organization Address [facility] Co de Phone Number [facility] [address] [place] [phone] * (ABNORMAL) Hepatic Function Panel (01/10/2025 11:39 AM EST) Bilirubin, Total 0.4 0.0 - 1.0 mg/dL [facility] Bilirubin, Direct 0.2 0.0 - 0.5 mg/dL [facility] Aspartate Amino Transferase 33(H) 5 - 31 U/L [facility] Alanine Aminotransferase 43(H) 0 - 31 U/L [facility] Total Protein 7.3 6.5 - 8.0 g/dL [facility] Albumin Level 3.7 3.5 - 5.0 g/dL [facility] Alkaline Phosphatase 66 39 - 117 U/L [facility] Blood Venous blood specimen / Unknown 01/10/2025 11:39 AM EST 01/10/2025 1:12 PM EST Hazel Kilgore MD LAB BLOOD ORDERABLES Final Result Performing Organization Address [facility] Co de Phone Number [facility] [address] [place] [phone] * Lipid Panel, Standard (01/10/2025 11:39 AM EST) Triglycerides 81 <150 mg/dL [facility] Comment:Desirable Triglyceri de: less than 150 mg/dLBorderline High Triglyceride 150-199 mg/dLHigh Triglyceride: 200-499 mg/dLVery High Triglyceride: greater than or equal to 5OO mg/dL Cholesterol 133 <200 mg/dL [facility] Comment:Desirable Cholestero l: less than 200 mg/dLBorderline High Cholesterol: 200-239 mg/dLHigh Cholesterol: greater than 239 mg/dL LDL Cholesterol Calculated 70 <100 mg/dL [facility] Comment:Desirable LDL: less than 100 mg/dLNear Optimal/Above Optimal LDL: 110- 129 mg/dLBorderline High LDL: 130-159 mg/dLHigh LDL: 160-189 mg/dLVery High LDL: greater than or equal to 190 mg/dL HDL Cholesterol 47 >40 mg/dL [facility] Comment:Desirable HDL: great er than 40 mg/dL Note: This HDL assay may give artificially low results in patients with liver disease. Blood Venous blood specimen / Unknown 01/10/2025 11:39 AM EST 01/10/2025 1:12 PM EST us Hazel Kilgore MD LAB BLOOD ORDERABLES Final Result [facility] [address] [place] [phone] * (ABNORMAL) Basic Metabolic Panel (01/10/2025 11:39 AM EST) Sodium 142 135 - 145 mmol/L [facility] Potassium 4.7 3.3 - 5.1 mmol/L [facility] Chloride 104 96 - 108 mmol/L [facility] Carbon Dioxide 32(H) 22 - 29 mmol/L [facility] Anion Gap 11(L) 12 - 20 [facility] Urea Nitrogen (BUN) 26(H) 9 - 16 mg/dL [facility] Creatinine, Serum 1.18 0.5 - 1.4 mg/dL [facility] Estimated Glomerular Filt Rate 44 [facility] Comment:Chronic Kidney Disea se: Estimated GFR < 60 mL/min/1.97m7Epgylx Kidney Disease: Estimated GFR < 15 mL/min/1.73m2 Glucose 186(H) 60 - 115 mg/dL [facility] Calcium 9.5 8.4 - 10.2 mg/dL [facility] Blood Venous blood specimen / Unknown 01/10/2025 11:39 AM EST 01/10/2025 1:12 PM EST Hazel Kilgore MD LAB BLOOD ORDERABLES Final Result [facility] [address] [place] [phone] * POCT Influenza B manually resulted (01/10/2025 11:16 AM EST) Rapid Influenza B Ag Negative Negative, Indeterminate QC Media Lot # [id number] Lot# Expiration Date Swab 01/10/2025 11:1 6 AM EST Hazel Kilgore MD POINT OF CARE TEST ENTER/E DIT ORDERABLES Final Result * POCT Influenza A manually resulted (01/10/2025 11:16 AM EST) Pathologist [facility] Rapid Influenza A Ag Negative Negative, Indeterminate QC Media Lot # [id number] Lot# Expiration Date Swab Nasopharyngeal structure / Unknown 01/10/2025 11:16 AM EST Hazel Kilgore MD POINT OF CARE TEST ENTER/E DIT ORDERABLES Final Result * POCT Rapid COVID Ag (01/10/2025 11:05 AM EST) [facility] Rapid COVID Ag Negative QC Media Lot # [id number] Lot# Expiration Date Swab 01/10/2025 11:0 5 AM EST Hazel Kilgore MD POINT OF CARE TEST ENTER/E DIT ORDERABLES Final Result * Hm Diabetes Eye Exam (04/22/2024 3:23 PM EDT) Eye Exam Normal Normal Comment:follow up one year Chidi Tam MD HEALTH MAINTENANCE Final Result from Last 3 Months or Most Recently Relevant to Health Maintenance Insurance [facility] Advance Directives Documents on File Type Date Recorded Patient Mud Jack Operator Expl anation Advance Directives and Livin g Will 12/15/2023 Health Care Proxy Care Teams Financial Examiner Relationship Specialty Start Date End Date [place], MD Hazel 230 [place] [address] PCP - General Family Medicine 11/09/18 Tee Shay MD [address] [facility] 200 [place] [address] Nephrology 11/07/24 Nia Borja 3300 [facility] [address]ND [address] [place] [address] Cardiology 11/07/24 Mary Ann Matthew MA [facility] Endocrinology 3300 [facility] Endocrinology 10/14/24 Derrick Mullen DPM 175 [place] [address] Podiatry 11/07/24
--- OUTSIDE RECORDS SUMMARY | 2025-02-22 18:17 | XMS_ITS | Encounter Summary ---
Author Organization [email or web address] Address 75 [facility] 7t [place] [address] Care Team Providers Care Industrial Hygiene Manager Name Role Phone Hazel Kilgore MD Primary Care Provider [phone] Tee Shay MD Unavailable [phone] Nia Borja Unavailable [phone] Reason for Visit * Reason Onset Date Comments Med Refill 06/20/2024 Encounter Details Date Type Department Care Team (Late st Contact Info) Description 06/20/2024 Telephone [facility] 230 [place], [place] [phone] Hazel Kilgore MD 230 [place], [place] [phone] Med Refill Social History Tobacco Use Types [...] MG DR capsule To be sent to: [facility] - [place], [place] - [address] [place] [address] documented in this encounter Plan of Treatment Upcoming Encounters Date Type Department Care Team (Late st Contact Info) Description 03/27/2025 10:45 AM EDT Telemedicine [facility] 230 [place] [address] Hazel Kilgore MD 230 [place] [address] documented as of this encounter Visit Diagnoses Not on filedocumented in this encounter Additional Health Concerns Assessment Noted Time PHQ-9 Depression Total Score: 0 07/03/20 9:07 AM EDT documented as of this encounter Care Teams Industrial Hygiene Manager Relationship Specialty Start Date End Date Jay, Hazel, MD 230 [place] [address] PCP - General Family Medicine 11/09/18 Tee Shay MD [address] [place] [address] [place] [address] Nephrology 11/07/24 Nia Borja 3300 [facility] [address] [place] [address] Cardiology 11/07/24 Mary Ann Matthew [place] [facility] Endocrinology 3300 [facility] Endocrinology 10/14/24 Derrick Mullen, DPM 175 [place] [address] Podiatry 11/07/24 documented as of this encounter
--- OUTSIDE RECORDS SUMMARY | 2025-02-22 18:17 | XMS_ITS | Clinical Summary ---
Author Organization 175 [facility] Address 175 [place] [address] Phone Care Team Providers Care Software Engineer Web Services Name Role Phone Hazel Kilgore MD Primary Care Provider [phone]- [phone] Allergies No known active allergies Medications ammonium [...] TIMES DAILY. 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, CMS/HCC V28) (Primary Dx); Localized swelling of both lower legs; Arthritis of both feet; PVD (peripheral vascular disease) (CMS/HCC V24); Dermatophytosis, nail from Last 3 Months Social [...] Care Team (Late st Contact Info) Description 04/24/2025 1:15 PM EDT Office Visit Orthopedic Surgery [facility] [address] [phone] Derrick Mullen, MADIHA [address] [address] Health Maintenance Due Date Last Done Comments Diabetes: Annual Foot Exam 1955 Diabetes: Annual Retina Eye Exam 1955 Diabetes: Annual Urine Albumin-Creatinine Ratio (uACR) 09/12/2024 08/13/2023 Falls Risk Assessment 09/12/2024 Osteoporosis Screening (Bone Density Screening) 09/12/2024 Social Influencers of Health Screening 09/12/2024 Diabetes: Blood Sugar Control Test (HGBA1C) 07/13/2025 01/10/2025, 11/21/2024, 07/21/2024, Additional history exists Depression Screening 11/21/2025 11/21/2024 Diabetes: Annual GFR (Glomerular Filtration Rate) 01/10/2026 01/10/2025, 08/11/2024, 07/21/2024, Additional history exists Hypertension/CHF/CAD Annual BMP Blood Test 01/10/2026 01/10/2025, 08/11/2024, 07/21/2024, Additional history exists Cholesterol Screening (Lipid Panel) 01/10/2030 01/10/2025, 07/21/2024, 08/13/2023 DTaP,Tdap,and Td Vaccines (5 - Td or Tdap) 08/25/2032 08/25/2022, 03/09/2019, 07/08/2012, Additional history exists MMR Vaccines Aged Out 09/17/2009 No longer eligi ble based on patient's age to complete this topic Hepatitis B Vaccines Completed 09/22/2014, 10/19/2009, 09/17/2009 Pneumococcal Vaccine: 50+ Years Completed 09/12/2015, 05/04/2014, 01/02/2012, Additional history exists Zoster Vaccines Completed 03/28/2022, 01/07, 09/22/2014 RSV Immunization Adult Patients Completed 07/21/2024 COVID-19 Vaccine Completed 11/21/2024, , [...] age to complete this topic Meningococcal B Vaccine Aged Out No l onger eligible based on patient's age to complete [...] * Urine Albumin Creatinine Ratio (08/13/2023) Pathologist [facility] Urine Albumin Creatinine Ratio Abstracted [facility] Provider HEALTH MAINTENANCE Final Result * Annual BMP Blood Test (08/13/2023) Pathologist [facility] Annual BMP Blood Test Abstracted [facility] Provider HEALTH MAINTENANCE Final Result * Lipid panel (08/13/2023) Pathologist [facility] LDL/HDL Ratio 0 Triglycerides 0 mg/dL Cholesterol 0 mg/dL HDL 0 mg/dL LDL Cholesterol 0 mg/dL Blood Venous blood specimen / Unknown Result [facility] Provider LAB BLOOD ORDERABLES Violet l Result * Hemoglobin A1c (01/17/2021) Pathologist [facility] Hemoglobin A1C 0.0 % Blood Venous blood specimen / Unknown us Historical Provider LAB BLOOD ORDERABLES Violet l Result from Last 3 Months or Most Recently Relevant to Health Maintenance Insurance [facility] Member Subscriber Plan / Payer (Ef fective 2020-Present) Name:Mary Giles Relation to Subscriber:Self Name:Mary Giles Payer ID:[id number] Group ID:[id number] Type:Not on file Address: [facility] [address] [address] MEDICAID - [place] Care Teams Software Engineer Web Services Relationship Specialty Start Date End Date Magui, MD Hazel [address] [phone] PCP - General 10/13/23
--- OUTSIDE RECORDS SUMMARY | 2025-02-22 18:17 | XMS_ITS | Encounter Summary ---
Author Organization [employer] Address 75 [facility] 7t [place] [address] Care Team Providers Care Pulp Piler Name Role Phone Universal, Hazel FELIPE Primary Care Provider [phone]- [phone] Tee Shay MD Unavailable [phone] Nia Borja Unavailable [phone] Reason for Visit * Reason Comments Med Refill Encounter Details Date Type Department Care Team ([facility] st Contact Info) Description 09/15/2024 Refill [facility] 230 [place] [address] Calli Trevizo MD 230 [place] [address] Gastroesophageal reflux disease, unspecified whether esophagitis present [...] Info) Description 03/27/2025 10:45 AM EDT Telemedicine [facility] 230 [place] [address] Hazel Kilgore MD 230 [place] [address] documented as of this encounter Visit Diagnoses Diagnosis Gastroesophageal reflux disease, unspecified whether esophagitis present documented in this encounter Additional Health Concerns Assessment Noted Time PHQ-9 Depression Total Score: 0 07/03/20 23 9:07 AM EDT documented as of this encounter Care Teams Pulp Piler Relationship Specialty Start Date End Date Hazel Kilgore MD 230 [place] [address] PCP - General Family Medicine 11/09/18 Tee Shay MD [address] [place] [address] [place] [address] Nephrology 11/07/24 Nia Borja 3300 [facility] [address] [place] [address] Cardiology 11/07/24 Mary Ann Matthew [place] [facility] Endocrinology 3300 [facility] Endocrinology 10/14/24 Derrick Mullen, DPVannesa 175 [place] [address] Podiatry 11/07/24 documented as of this encounter
== END 2025-02-21 00:01 | disposition home or self-care (01) ==
LOC: HO.HHCLNP
PROVIDERS: Visit Provider Family Medicine
DX: Z13.89 Encounter for screening for other disorder (principal)

== ENCOUNTER 2025-02-22 13:55 | Outpatient (REF) | payer OTHER, SELFPAY ==
[2025-02-22 19:59] LABS: CDiff Gene PCR NEGATIVE (Negative)
--- OUTSIDE RECORDS SUMMARY | 2025-02-24 09:13 | XMS_ITS | Encounter Summary ---
Author Organization [facility] Address [address] [place] [place] [address] Phone Care Team Providers Care Piercing Artist Name Role Phone Hazel Kilgore MD Primary Care Provider U catracho Encounter Details Date Type Department Care Team (Late st Contact Info) Description 03/24/2022 Telephone [facility] [address] [place] [address] [place] [phone] Tee Shay MD 2[address] [facility] 204 [place] [address] Social History Tobacco Use Types [...] - 03/24/2022 11:28 AM EDT Renae from [facility] called she would like to know if an updated script for lasix 1 tablet in the AM can besent to [facility] pharmacy seeing as the pt has not been taking her PM dose due to frequent nighttime urination. Thank you documented in this encounter Plan of Treatment Not on file documented as of this encounter Visit Diagnoses Not on filedocumented in this encounter Care Teams Piercing Artist Relationship Specialty Start Date End Date Hazel Kilgore MD [address] [place] [address] PCP - General 11/19/20 documented as of this encounter
--- OUTSIDE RECORDS SUMMARY | 2025-02-24 09:13 | XMS_ITS | Encounter Summary ---
Author Organization [employer] Address 75 [facility] 7t [place] [address] Care Team Providers Care Potato Chip Sorter Name Role Phone Hazel Kilgore MD Primary Care Provider [phone] Tee Shay MD Unavailable [phone] Nia Borja Unavailable [phone] Encounter Details Date Type Department Care Team (Late st Contact Info) Description 07/15/2023 Orders Only [facility] 505 [place], [place] [phone] Amaya Garcia LPN Social History Tobacco Use [...] Info) Description 03/27/2025 10:45 AM EDT Telemedicine [facility] 230 [place], [place] [phone] Hazel Kilgore MD 230 [place], [place] [phone] documented as of this encounter Visit Diagnoses Not on filedocumented in this encounter Additional Health Concerns Assessment Noted Time PHQ-9 Depression Total Score: 0 07/03/20 23 9:07 AM EDT documented as of this encounter Care Teams Potato Chip Sorter Relationship Specialty Start Date End Date Hazel Kilgore MD 230 [place] [address] PCP - General Family Medicine 11/09/18 Tee Shay MD [address] [place] [address] [place] [address] Nephrology 11/07/24 Nia Borja 3300 [facility] [address]LO[address] [place] [address] Cardiology 11/07/24 Mary Ann Matthew MA [facility] Endocrinology 3300 [facility] Endocrinology 10/14/24 Derrick Mullen DPM 175 [place] [address] Podiatry 11/07/24 documented as of this encounter
--- OUTSIDE RECORDS SUMMARY | 2025-02-24 09:13 | XMS_ITS | Encounter Summary ---
Author Organization [employer] Address [address] [facility] [address] 7t [place] [address] Care Team Providers Care Real Property Appraiser Name Role Phone [place], Hazel FELIPE Primary Care Provider [phone] Tee Shay MD Unavailable [phone] Nia Borja Unavailable [phone] Reason for Visit * Reason Comments Med Refill Encounter Details Date Type Department Care Team (Late st Contact Info) Description 08/13/2023 Refill [facility] & PEDS [address] [place], [place] [phone] Mireya Vasquez MD 230 [place] [address] Social History Tobacco Use Types Packs/Day Years [...] Info) Description 03/27/2025 10:45 AM EDT Telemedicine [facility] 230 [place] [address] Hazel Kilgore MD 230 [place] [address] documented as of this encounter Visit Diagnoses Not on filedocumented in this encounter Additional Health Concerns Assessment Noted Time PHQ-9 Depression Total Score: 0 07/03/20 23 9:07 AM EDT documented as of this encounter Care Teams Real Property Appraiser Relationship Specialty Start Date End Date Hazel Kilgore MD 230 [place] [address] PCP - General Family Medicine 11/09/18 Tee Shay MD [address] [facility] 200 [place] [address] Nephrology 11/07/24 Nia Borja 3300 [facility] [address] [place] [address] Cardiology 11/07/24 Mary Ann Matthew MA [facility] Endocrinology 3300 [facility] Endocrinology 10/14/24 Derrick Mullen, MADIHA [address] [place] [address] Podiatry 11/07/24 documented as of this encounter
--- OUTSIDE RECORDS SUMMARY | 2025-02-24 09:13 | XMS_ITS | Encounter Summary ---
Author Organization [employer] Address [address] [facility] [address] 7t [place] [address] Care Team Providers Care Home Lighting Adviser Name Role Phone Hazel Kilgore MD Primary Care Provider [phone] Tee Shay MD Unavailable [phone] Nia Borja Unavailable [phone] Encounter Details Date Type Department Care Team (Late st Contact Info) Description 02/24/2025 Orders Only [facility] 230 [place], [place] [phone] Hazel Kilgore MD 230 [place], [place] [phone] Diarrhea, unspecified type (Primary Dx) Social History Tobacco Use Types Packs/Day Years [...] 03/27/2025 10:45 AM EDT Telemedicine [facility] 230 [place] [address] Hazel Kilgore MD [address] [place] [address] documented as of this encounter Visit Diagnoses Diagnosis Diarrhea, unspecified type- Primary documented in this encounter Additional Health Concerns Assessment Noted Time PHQ-9 Depression Total Score: 0 11/21/19 25 10:37 AM EST documented as of this encounter Care Teams Home Lighting Adviser Relationship Specialty Start Date End Date Hazel Kilgore MD [address] [place] [address] PCP - General Family Medicine 11/09/18 Tee Shay MD [address] [place] [address] [place] [phone] Nephrology 11/07/24 Nia Borja 3300 [facility] [address] [place] [address] Cardiology 11/07/24 Mary Ann Matthew [place] [facility] Endocrinology [address] [place] [address] Endocrinology 10/14/24 Derrick Mullen, MADIHA [address] [place] [address] Podiatry 11/07/24 documented as of this encounter
--- OUTSIDE RECORDS SUMMARY | 2025-02-24 09:13 | XMS_ITS | Encounter Summary ---
Author Organization [employer] Address 75 [facility] 7t [place] [address] Care Team Providers Care Night Auditor Name Role Phone Hazel Kilgore MD Primary Care Provider [phone] Tee Shay MD Unavailable [phone] Nia Borja Unavailable [phone] Reason for Visit * Reason Onset Date Comments Med Refill 06/20/2024 Encounter Details Date Type Department Care Team (Late st Contact Info) Description 06/20/2024 Telephone [facility] 230 [place], [place] [phone] Hazel Kilgore MD 230 [place], [place] [phone] Med Refill Social History Tobacco Use Types [...] MG DR capsule To be sent to: [facility] - [place], [place] - [address] [place] [address] documented in this encounter Plan of Treatment Upcoming Encounters Date Type Department Care Team (Late st Contact Info) Description 03/27/2025 10:45 AM EDT Telemedicine [facility] 230 [place] [address] Hazel Kilgore MD 230 [place] [address] documented as of this encounter Visit Diagnoses Not on filedocumented in this encounter Additional Health Concerns Assessment Noted Time PHQ-9 Depression Total Score: 0 07/03/20 9:07 AM EDT documented as of this encounter Care Teams Night Auditor Relationship Specialty Start Date End Date Rich, Hazel, MD 230 [place] [address] PCP - General Family Medicine 11/09/18 Tee Shay MD [address] [place] [place] [address] Nephrology 11/07/24 Nia Borja 3300 [facility] [address] [place] [place] [address] Cardiology 11/07/24 Mary Ann Matthew [place] [facility] Endocrinology 3300 [facility] Endocrinology 10/14/24 Derrick Mullen, DPM 175 [place] [address] Podiatry 11/07/24 documented as of this encounter
--- OUTSIDE RECORDS SUMMARY | 2025-02-24 09:13 | XMS_ITS | Encounter Summary ---
Author Organization [employer] Address [address] [facility] [address] [place] [address] Care Team Providers Care Fishing Rod Trimmer Name Role Phone Hazel Kilgore MD Primary Care Provider [phone]- [phone] Tee Shay MD Unavailable [phone] Nia Borja Unavailable [phone] Encounter Details Date Type Department Care Team (Late st Contact Info) Description 08/20/2023 Orders Only [facility] 230 [place], [place] [phone] Hazel Kilgore MD 230 [place], [place] [phone] Social History Tobacco Use Types Packs/Day Years [...] Info) Description 03/27/2025 10:45 AM EDT Telemedicine [facility] 230 [place] [address] Hazel Kilgore MD 230 [place] [address] documented as of this encounter Visit Diagnoses Not on filedocumented in this encounter Additional Health Concerns Assessment Noted Time PHQ-9 Depression Total Score: 0 07/03/20 23 9:07 AM EDT documented as of this encounter Care Teams Fishing Rod Trimmer Relationship Specialty Start Date End Date Hazel Kilgore MD 230 [place] [address] PCP - General Family Medicine 11/09/18 Tee Shay MD [address] [place] [place] [address] Nephrology 11/07/24 Nia Borja 3300 [facility] [address] [place] [address] Cardiology 11/07/24 Mary Ann Matthew [place] [facility] Endocrinology 3300 [facility] Endocrinology 10/14/24 Derrick Mullen, DPM 175 [place] [address] Podiatry 11/07/24 documented as of this encounter
--- OUTSIDE RECORDS SUMMARY | 2025-02-24 09:13 | XMS_ITS | Encounter Summary ---
Author Organization [facility] Address [address] [facility] 200 [place] [address] Phone Care Team Providers Care Exterior Work Helper Name Role Phone Magui, Hazel Soriano MD Primary Care Provider U navailable Reason for Visit * Reason Comments Med Refill Encounter Details Date Type Department Care Team (Late st Contact Info) Description 04/24/2022 Refill [facility] [address] [place] [address] Tee Shay MD 9335 [facility] 204 [place] [address] Social History Tobacco Use Types [...] on filedocumented in this encounter Care Teams Exterior Work Helper Relationship Specialty Start Date End Date Hazel Kilgore MD 230 [place] [address] PCP - General 11/19/20 documented as of this encounter
--- OUTSIDE RECORDS SUMMARY | 2025-02-24 09:13 | XMS_ITS | Encounter Summary ---
Author Organization [employer] Address 75 [facility] 7t [place] [address] Care Team Providers Care Rock Climbing Team Member Name Role Phone Hazel Kilgore MD Primary Care Provider +1- [phone] Tee Shay MD Unavailable [phone] Nia Borja Unavailable [phone] Encounter Details Date Type Department Care Team (Late st Contact Info) Description 08/04/2023 Orders Only [facility] CHC MED & PEDS [address] [place] [address] Renata Lerner LPN Social History Tobacco Use [...] Info) Description 03/27/2025 10:45 AM EDT Telemedicine [facility] MEDICINE 230 [place], [place] [phone] Hazel Kilgore MD [address] [place], [place] [phone] documented as of this encounter Visit Diagnoses Not on filedocumented in this encounter Additional Health Concerns Assessment Noted Time PHQ-9 Depression Total Score: 0 07/03/20 23 9:07 AM EDT documented as of this encounter Care Teams Rock Climbing Team Member Relationship Specialty Start Date End Date Hazel Kilgore MD [address] [place] [address] PCP - General Family Medicine 11/09/18 Tee Shay MD [address] [place] [address] Nephrology 11/07/24 Nia Borja [address] [place] [address] [address] [place] [address] Cardiology 11/07/24 Mary Ann Matthew MA [facility] Endocrinology 3300 [facility] Endocrinology 10/14/24 Derrick Mullen, DPVannesa 175 [place] [address] Podiatry 11/07/24 documented as of this encounter
--- OUTSIDE RECORDS SUMMARY | 2025-02-24 09:13 | XMS_ITS | Encounter Summary ---
Author Organization [employer] Address 75 [facility] 7t [place] [address] Care Team Providers Care Sales Force Administrator Name Role Phone Hazel Kilgore MD Primary Care Provider [phone]- [phone] Tee Shay MD Unavailable [phone] Nia Borja Unavailable [phone] Encounter Details Date Type Department Care Team (Late st Contact Info) Description 04/10/2023 Orders Only [facility] CHC MED & PEDS [address] [place] [address] Amaya Garcia LPN Social History Tobacco Use [...] Description 03/27/2025 10:45 AM EDT Telemedicine [facility] MEDICINE 230 [place] [address] Hazel Kilgore MD 230 [place], [place] [phone] documented as of this encounter Visit Diagnoses Not on filedocumented in this encounter Care Teams Sales Force Administrator Relationship Specialty Start Date End Date Hazel Kilgore MD 230 [place], [place] [phone] PCP - General Family Medicine 11/09/18 Tee Shay MD [address] [place] [address] Nephrology 11/07/24 Nia Borja [address] [place] [address] Cardiology 11/07/24 Mary Ann Matthew MA [facility] Endocrinology 3300 [facility] Endocrinology 10/14/24 Derrick Mullen, MADIHA 175 [place] [address] Podiatry 11/07/24 documented as of this encounter
--- OUTSIDE RECORDS SUMMARY | 2025-02-24 09:13 | XMS_ITS | Encounter Summary ---
Author Organization [employer] Address [address] [facility] [address] 7t [place] [address] Care Team Providers Care Communications Department Chairperson Name Role Phone Hazel Kilgore MD Primary Care Provider +1- [phone] Tee Shay MD Unavailable [phone] Nia Borja Unavailable [phone] Reason for Visit * Reason Onset Date Comments Referral 09/04/2023 Encounter Details Date Type Department Care Team (Late st Contact Info) Description 09/04/2023 Telephone [facility] MEDICINE 230 [place], [place] [phone] Hazel Kilgore MD [address] [place], [place] [phone] Referral Social History Tobacco Use Types Packs/Day [...] Podiatry specialist. [facility] Address 175 [place] [address] documented in this encounter Plan of Treatment Upcoming Encounters Date Type Department Care Team (Late st Contact Info) Description 03/27/2025 10:45 AM EDT Telemedicine [facility] MEDICINE 230 [place] [address] Hazel Kilgore MD 230 [place] [address] documented as of this encounter Visit Diagnoses Not on filedocumented in this encounter Additional Health Concerns Assessment Noted Time PHQ-9 Depression Total Score: 0 07/03/20 23 9:07 AM EDT documented as of this encounter Care Teams Communications Department Chairperson Relationship Specialty Start Date End Date Hazel Kilgore MD 230 [place] [address] PCP - General Family Medicine 11/09/18 Tee Shay MD [address] [place] [address] Nephrology 11/07/24 Nia Borja 3300 [facility] [address] [place] [address] Cardiology 11/07/24 Mary Ann Matthew [place] [facility] Endocrinology 3300 [facility] Endocrinology 10/14/24 Derrick Mullen, DPM 175 [place] [address] Podiatry 11/07/24 documented as of this encounter
--- OUTSIDE RECORDS SUMMARY | 2025-02-24 09:13 | XMS_ITS | Encounter Summary ---
Author Organization [employer] Address 75 [facility] 7t [place] [address] Care Team Providers Care Powderman Name Role Phone Hazel Kilgore MD Primary Care Provider [phone]- [phone] Tee Shay MD Unavailable [phone] JonhNia Unavailable [phone] Encounter Details Date Type Department Care Team (Latest Contact Info) Description 07/28/2019 Abstract [facility] CONVERSIONS Dental, Provider, DDS Social History Tobacco [...] 03/27/2025 10:45 AM EDT Telemedicine [facility] MEDICINE 230 [place] [address] Hazel Kilgore MD 230 [place] [address] documented as of this encounter Visit Diagnoses Not on filedocumented in this encounter Care Teams Powderman Relationship Specialty Start Date End Date Hazel Kilgore MD 230 [place], [place] [phone] PCP - General Family Medicine 11/09/18 Tee Shay MD [address] [place] [address] Nephrology 11/07/24 Nia Borja 3300 [facility] [address] [place] [place] [address] Cardiology 11/07/24 Mary Ann Matthew MA [facility] Endocrinology [address] [place] [address] Endocrinology 10/14/24 Derrick Mullen, DPVannesa 175 [place] [address] Podiatry 11/07/24 documented as of this encounter
--- OUTSIDE RECORDS SUMMARY | 2025-02-24 09:13 | XMS_ITS | Encounter Summary ---
Author Organization [employer] [facility] Address 75 [facility] 7t [place] [address] Care Team Providers Care Retail Helper Name Role Phone Hazel Kilgore MD Primary Care Provider Tee Shay MD Unavailable [phone] Nia Borja Unavailable [phone] Encounter Details Date Type Department Care Team (Late st Contact Info) Description 10/30/2022 Orders Only [facility] [address] [place] [address] Renata Lerner LPN Social History Tobacco Use [...] Info) Description 03/27/2025 10:45 AM EDT Telemedicine [facility] MEDICINE 230 [place] [address] Hazel Kilgore MD [address] [place], [place] [phone] documented as of this encounter Visit Diagnoses Not on filedocumented in this encounter Care Teams Retail Helper Relationship Specialty Start Date End Date Hazel Kilgore MD [address] [place] [phone] PCP - General Family Medicine 11/09/18 Tee Shay MD [address] [place] [address] Nephrology 11/07/24 Nia Borja [address] [place] [address] Cardiology 11/07/24 Mary Ann Matthew MA [facility] Endocrinology 3300 [facility] Endocrinology 10/14/24 Derrick Mullen, DPVannesa 175 [place] [address] Podiatry 11/07/24 documented as of this encounter
--- OUTSIDE RECORDS SUMMARY | 2025-02-24 09:13 | XMS_ITS | Clinical Summary ---
Author Organization 175 [facility] Address 175 [place] [address] Phone Care Team Providers Care Surgeon'S Assistant Name Role Phone Hazel Kilgore MD Primary Care Provider +1- [phone] Allergies No known active allergies Medications ammonium [...] 1:30 PM EDT Office Visit Orthopedic Surgery [place] [address] [phone] Derrick Mullen DPM Controlled type 2 diabetes [...] 1:15 PM EDT Office Visit Orthopedic Surgery [facility] [address] [phone] Derrick Mullen, MADIHA [address] [address] Health Maintenance Due Date Last Done Comments Diabetes: Annual Foot Exam 1955 Diabetes: Annual Retina Eye Exam 1955 Diabetes: Annual Urine Albumin-Creatinine Ratio (uACR) 09/12/2024 08/13/2023 Falls Risk Assessment 09/12/2024 Osteoporosis Screening (Bone Density Screening) 09/12/2024 Social Influencers of Health Screening 09/12/2024 COVID-19 Vaccine (6 - Moderna risk season) 2025 11/21/2024, 12/03/2023, 09/19/2021, Additional history exists Diabetes: Blood Sugar Control Test (HGBA1C) 07/13/2025 [...] 09/22/2014 RSV Immunization Adult Patients Completed 07/21/2024 Influenza Vaccine Completed 11/21/2024, , 08/25/2022, Additional [...] * Urine Albumin Creatinine Ratio (08/13/2023) Pathologist [facility] Urine Albumin Creatinine Ratio Abstracted Result [facility] Provider HEALTH MAINTENANCE Final Result * Annual BMP Blood Test (08/13/2023) Pathologist [facility] Annual BMP Blood Test Abstracted [facility] Provider HEALTH MAINTENANCE Final Result * Lipid panel (08/13/2023) [facility] LDL/HDL Ratio 0 Triglycerides 0 mg/dL Cholesterol 0 mg/dL HDL 0 mg/dL LDL Cholesterol 0 mg/dL Blood Venous blood specimen / Unknown Result [facility] Provider LAB BLOOD ORDERABLES Violet l Result * Hemoglobin A1c (01/17/2021) Hemoglobin A1C 0.0 % Blood Venous blood specimen / Unknown Historical Provider LAB BLOOD ORDERABLES Violet l Result from Last 3 Months or Most Recently Relevant to Health Maintenance Insurance [facility] Member Subscriber Plan / Payer (Ef fective 2020-Present) Name:Mary Giles Relation to Subscriber:Self Name:Mary Giles Payer ID:[id number] Group ID:[id number] Type:Not on file Address: [place] [address] [address] [place] [phone] MEDICA[place] Care Teams Surgeon'S Assistant Relationship Specialty Start Date End Date Magui, MD Hazel [address] [place] [phone] PCP - General 10/13/23
--- OUTSIDE RECORDS SUMMARY | 2025-02-24 09:13 | XMS_ITS | Encounter Summary ---
Author Organization [employer] [facility] Address 75 [facility] 7t [place] [address] Care Team Providers Care Sorority Supervisor Name Role Phone Hazel Kilgore MD Primary Care Provider +1- [phone] Tee Shay MD Unavailable Nia Borja Unavailable [phone] Encounter Details Date Type Department Care Team (Late st Contact Info) Description 12/26/2022 Abstract [facility] MEDICINE [address] [place] [phone] Hazel Kilgore MD [address] [place] [address] [phone] Social History Tobacco Use Types Packs/Day Years [...] 03/27/2025 10:45 AM EDT Telemedicine [facility] MEDICINE [address] [place] [phone] Hazel Kilgore MD [address] [place] [phone] documented as of this encounter Procedures Procedure [...] on filedocumented in this encounter Care Teams Sorority Supervisor Relationship Specialty Start Date End Date Hazel Kilgore MD 230 [place] [address] PCP - General Family Medicine 11/09/18 Tee Shay MD [facility] [address] [place] [address] Nephrology 11/07/24 Nia Borja 3300 [facility] [address] [place] [address] Cardiology 11/07/24 Mary Ann Matthew MA [facility] Endocrinology 3300 [facility] Endocrinology 10/14/24 Derrick Mullen, DPM 175 [place] [address] Podiatry 11/07/24 documented as of this encounter
--- OUTSIDE RECORDS SUMMARY | 2025-02-24 09:13 | XMS_ITS | Patient Health Record ---
Author Organization [facility] Address [address] [place] [address] Care Team Providers Care Puncher Name Role Phone Hazel Kilgore MD Primary Care Provider Aaron Cloud Unavailable [phone] Reason For Referral No Information Medications Medication [...] Problem Status W/U Status Risk Notes Problem [id number] Encounter for screening for malignant neoplasm of colon (Z12.11) Active confirmed Problem [id number] Long-term use of aspirin therapy (Z79.82) Active confirmed Problem [id number] Constipation, unspecified constipation type (K59.00) Active confirmed Plan Of Treatment Future Test Test Name Order Date COLONOSCOPY 09/14/2018 Next Appt Details Provider Name:Aaron Almazan , 05/18/2025 10:40:00 AM, [address] [place] [address], [address], [place], [address], Insurance Providers Payer Name Payer Address Payer Phone Subscriber Number Group Number Insured Name Patient Relationship to Insured Coverage Start Date Coverage End Date [facility] [address] [place] [address] [id number] INNA MACISA Self - patient is the insured Medical (General) History Medical History History ICD Code Stage 3 kidney disease--Dr. Shay IDDM Hx of uterine cancer--2016--surgery and chemo at [facility] Back pain--scheduled for a pain stimulat or insertion for 10/2018 Negative colonoscopy in 2006 EGD in 2006--- questionable duodenal biopsies in regard to possible celiac disease, but celiac disease serologies were negative and she was never started on a gluten-free diet Neg SB capsule tudy in 2006--for eval of Iron def anemia HTN Hyperlipidemai urinary incontinence Denies NM or CVA Surgical History Surgery Date(Month/Year) NICOLAS--uterine cancer 2016 Back pain stimulator being placed in 2017
--- OUTSIDE RECORDS SUMMARY | 2025-02-24 09:13 | XMS_ITS | Encounter Summary ---
Author Organization [employer] Address 75 [facility] 7t [place] [address] Care Team Providers Care Can Reconditioner Name Role Phone [place], Hazel FELIPE Primary Care Provider [phone]- [phone] Tee Shay MD Unavailable [phone] Nia Borja Unavailable [phone] Reason for Visit * Reason Comments Med Refill Encounter Details Date Type Department Care Team ([facility] st Contact Info) Description 09/15/2024 Refill [facility] MEDICINE 230 [place] [address] Calli Trevizo MD 230 [place] [address] Gastroesophageal reflux disease, unspecified whether esophagitis present [...] Description 03/27/2025 10:45 AM EDT Telemedicine [facility] MEDICINE 230 [place] [address] Hazel Kilgore MD 230 [place] [address] documented as of this encounter Visit Diagnoses Diagnosis Gastroesophageal reflux disease, unspecified whether esophagitis present documented in this encounter Additional Health Concerns Assessment Noted Time PHQ-9 Depression Total Score: 0 07/03/20 23 9:07 AM EDT documented as of this encounter Care Teams Can Reconditioner Relationship Specialty Start Date End Date Hazel Kilgore MD 230 [place] [address] PCP - General Family Medicine 11/09/18 Tee Shay MD [address] [place] [address] Nephrology 11/07/24 Nia Borja 3300 [facility] [address] [place] [address] Cardiology 11/07/24 Mary Ann Matthew MA [facility] Endocrinology 3300 [facility] Endocrinology 10/14/24 Derrick Mullen, DPVannesa 175 [place] [address] Podiatry 11/07/24 documented as of this encounter
--- OUTSIDE RECORDS SUMMARY | 2025-02-24 09:13 | XMS_ITS | Clinical Summary ---
Author Organization [facility] Address [address] [address] Phone Care Team Providers Care Wire Inserter Name Role Phone Hazel Kilgore MD Primary [...] Telemedicine [facility] [address] [place] [address] Tee Shay MD 12/07/2024 Refill [facility] [address] [place] [address] Tee Shay MD Stage 3b [...] 11/21/2024, , 01/19/2020, Additional history exists Insurance [facility] ([id number]) [place] [id number] [facility] ([id number]) Care Teams Wire Inserter Relationship Specialty Start Date End Date Magui, Hazel Soriano MD 230 [place] [address] PCP - General 11/19/20
--- OUTSIDE RECORDS SUMMARY | 2025-02-24 09:13 | XMS_ITS | Encounter Summary ---
Author Organization [employer] Address [address] [facility] [address] 7t [place] [address] Care Team Providers Care Biodiesel Division Manager Name Role Phone Hazel Kilgore MD Primary Care Provider [phone]- [phone] Tee Shay MD Unavailable [phone] Nia Borja Unavailable [phone] Reason for Visit * Reason Comments Med Refill Encounter Details Date Type Department Care Team (Late st Contact Info) Description 08/19/2023 Refill [facility] CHC MED & PEDS [address] [place], [place] [phone] Hazel Kilgore MD 230 [place] [address] Social History Tobacco Use Types Packs/Day Years [...] Info) Description 03/27/2025 10:45 AM EDT Telemedicine [facility] MEDICINE 230 [place] [address] Hazel Kilgore MD 230 [place] [address] documented as of this encounter Visit Diagnoses Not on filedocumented in this encounter Additional Health Concerns Assessment Noted Time PHQ-9 Depression Total Score: 0 07/03/20 23 9:07 AM EDT documented as of this encounter Care Teams Biodiesel Division Manager Relationship Specialty Start Date End Date Hazel Kilgore MD [address] [place] [address] PCP - General Family Medicine 11/09/18 Tee Shay MD [address] [facility] 200 [place] [address] Nephrology 11/07/24 Nia Borja 3300 [facility] [address] [place] [address] Cardiology 11/07/24 Mary Ann Matthew [place] [facility] Endocrinology 3300 [facility] Endocrinology 10/14/24 Derrick Mullen, MADIHA [address] [place] [address] Podiatry 11/07/24 documented as of this encounter
--- OUTSIDE RECORDS SUMMARY | 2025-02-24 09:13 | XMS_ITS | Encounter Summary ---
Author Organization [employer] Address 75 [facility] 7t [place] [address] Care Team Providers Care Wheat Cleaner Name Role Phone Hazel Kilgore MD Primary Care Provider [phone]- [phone] Tee Shay MD Unavailable [phone] Nia Borja Unavailable [phone] Encounter Details Date Type Department Care Team (Late st Contact Info) Description 03/19/2023 Orders Only [facility] CHC MED & PEDS [address] [place] [address] Amaya Garcia LPN Social History Tobacco Use [...] [facility] MEDICINE 230 [place] [address] Hazel Kilgore MD 230 [place], [place] [phone] documented as of this encounter Visit Diagnoses Not on filedocumented in this encounter Care Teams Wheat Cleaner Relationship Specialty Start Date End Date Hazel Kilgore MD 230 [place], [place] [phone] PCP - General Family Medicine 11/09/18 Tee Shay MD [address] [place] [address] Nephrology 11/07/24 Nia Borja [address] [place] [address] Cardiology 11/07/24 Mary Ann Matthew [place] [facility] Endocrinology [address] [facility] Endocrinology 10/14/24 Derrick Mullen, MADIHA 175 [place] [address] Podiatry 11/07/24 documented as of this encounter
--- OUTSIDE RECORDS SUMMARY | 2025-02-24 09:13 | XMS_ITS | Encounter Summary ---
Author Organization [employer] Address 75 [facility] 7t [place] [address] Care Team Providers Care Technician Semiconductor Development Name Role Phone Hazel Kilgore MD Primary Care Provider [phone] Tee Shay MD Unavailable [phone] Nia Borja Unavailable [phone] Encounter Details Date Type Department Care Team (Late st Contact Info) Description 01/21/2023 Orders Only [facility] CHC MED & PEDS [address] [place] [address] Amaya Garcia LPN Social History Tobacco Use [...] Info) Description 03/27/2025 10:45 AM EDT Telemedicine [facility] MEDICINE 230 [place] [address] Hazel Kilgore MD 230 [place], [place] [phone] documented as of this encounter Visit Diagnoses Not on filedocumented in this encounter Care Teams Technician Semiconductor Development Relationship Specialty Start Date End Date Hazel Kilgore MD 230 [place], [place] [phone] PCP - General Family Medicine 11/09/18 Tee Shay MD [address] [place] [address] Nephrology 11/07/24 Nia Borja [address] [place] [address] Cardiology 11/07/24 Mary Ann Matthew [place] [facility] Endocrinology 3300 [facility] Endocrinology 10/14/24 Derrick Mullen, MADIHA 175 [place] [address] Podiatry 11/07/24 documented as of this encounter
--- OUTSIDE RECORDS SUMMARY | 2025-02-24 09:14 | XMS_ITS | Clinical Summary ---
Author Organization [employer] Address [address] [place] [address] Care Team Providers Care Grocery Store Manager Name Role Phone Hazel Kilgore MD Primary Care Provider [phone] Tee Shay MD Unavailable [phone] Nia Borja Unavailable [phone] Allergies No known active allergies Medications TRUEplus Lancets 33G miscIndications:T ype 2 diabetes mellitus with other specified complication, with long-term current use of insulin ([facility]) TEST BLOOD SUGAR SIX TIMES DAILY 100 each 11 024 Active Ascorbic Acid (vitamin C) 500 MG tabletIndications :Iron deficiency TAKE 1 TABLET BY MOUTH TWICE DAILY IN THE MORNING AND AT BEDTIME 60 tablet 11 Active Sure Comfort Pen [place] 31G X 5 MM miscIndications:T ype 2 diabetes mellitus with other specified complication, with long-term current use of insulin ([facility]) USE DIRECTED FOUR TIMES DAILY 100 each 11 024 Active aspirin (Aspirin Low Dose) 81 MG EC tabletIndications :Atrial fibrillation with RVR ([facility]) Per cardiology Active dapagliflozin (Farxiga) 10 MGIndications:Typ e 2 diabetes mellitus with stage 3a chronic kidney disease, unspecified whether predatory animal exterminator insulin use ([facility]) Take 1 tablet by mouth. Active doxazosin (Cardura) 4 MG tabletIndications :Hypertension, unspecified type Take 1.5 tablets by mouth at bedtime. 024 Active insulin glargine (Lantus SoloStar) 100 UNIT/ML penIndications:Ty pe 2 diabetes mellitus with stage 3a chronic kidney disease, unspecified whether mcfp insulin use ([facility]) Inject 30 units subcutaneously daily 15 mL Active insulin aspart (NovoLOG FLEXPEN) 100 UNIT/ML penIndications:Ty pe 2 diabetes mellitus with stage 3a chronic kidney disease, unspecified whether predatory animal exterminator insulin use ([facility]) Inject 6-7 units tid before meals sc 15 mL Active dulaglutide (Trulicity) 3 MG/0.5ML solution pen-injectorIndic ations:Type 2 diabetes mellitus with stage 3a chronic kidney disease, unspecified whether predatory animal exterminator insulin use ([facility]) Inject 3 mg under the skin 1 [...] tabletIndications :Hypertension, unspecified type,Atrial fibrillation with RVR ([facility]) Take 1 tablet (25 mg) by mouth Once per day. 90 tablet Active LORazepam (Ativan) 0.5 MG tabletIndications :Tremor Take by mouth. From neruology Active gabapentin (Neurontin) 600 MG tabletIndications :Neuropathy Take by mouth. Per specialist tid Active FREESTYLE LITE test stripIndications: Type 2 diabetes mellitus with stage 3a chronic kidney disease, unspecified whether mcfp insulin use ([facility]) Use bid prn 150 strip Active furosemide (Lasix) 40 MG tabletIndications :Hypertension, unspecified type Take by mouth. Per nephrology Active fluticasone (Flovent HFA) 110 MCG/ACT inhalerIndication s:Type 2 diabetes mellitus with stage 3a chronic kidney disease, unspecified whether predatory animal exterminator insulin use ([facility]),Chronic bronchitis, unspecified chronic bronchitis type ([facility]) Rinse mouth with water after use to [...] complication, with long-term current use of insulin ([facility]) TAKE 1 TABLET BY MOUTH AT BEDTIME [...] disease, with long-term current use of insulin ([facility]),Hyperli pidemia, unspecified hyperlipidemia type TAKE 1 TABLET BY MOUTH AT BEDTIME 90 tablet 3 025 Active ferrous sulfate 325 (65 Fe) MG EC tabletIndications :Iron deficiency TAKE 1 TABLET BY MOUTH THREE TIMES DAILY IN THE MORNING, AT NOON, AND IN THE EVENING 90 tablet 025 Active loperamide (Imodium A-D) 2 MG tabletIndications :Diarrhea, unspecified type Take 1 tablet (2 mg) by mouth if needed in the morning, at noon, and at bedtime for diarrhea. 30 tablet 2 025 2024 Active rosuvastatin (Crestor) 20 MG tabletIndications :Type 2 diabetes mellitus with stage 3b chronic kidney disease, with long-term current use of insulin ([facility]),Hyperli pidemia, unspecified hyperlipidemia type TAKE 1 TABLET [...] different from the original. [facility] Instructor Of Nursing: Kaylin member services number [phone], provider services line, , option 4 Senior Digital Designer Agency: [facility], [facility] Problem Noted Date Diagnosed Date Diarrhea 01/10/2025 [...] She will be set up with a monitor technician to evaluate for atrial fibrillation burden. -Echocardiogram with Evita Sevilla MD : The left ventricle is normal in size. Ejection fraction is 55-60%. The basal inferior wall is akinetic. Grade II diastolic dysfunction.The left atrium is mildly dilated.The right ventricle is normal in size. Function is preserved.The right atrium is normal in size. -seen by cardiology [facility] Attending Physician: Jonh TORREZ, Cridva87/2023 -continue Aspirin 81 MG -continue Metoprolol Succinate [...] She will be set up with a monitor technician to evaluate for atrial fibrillation burden. -Echocardiogram with Evita Sevilla MD : The left ventricle is normal in size. Ejection fraction is 55-60%. The basal inferior wall is akinetic. Grade II diastolic dysfunction.The left atrium is mildly dilated.The right ventricle is normal in size. Function is preserved.The right atrium is normal in size. -seen by cardiology [facility] Attending Physician: Rigo Borja NP -continue [...] She will be set up with a monitor technician to evaluate for atrial fibrillation burden. Other specified health status 08/05/2023 Overview (11/21/2024): -next physical exam due after 11/21/2025 -eye care facilitated by Dr. Stubbs at [facility], seen 06/2024 -dental home is [facility] care proxy on file 12/03/23 Assessment & Plan (11/21/2024 12:46 PM EST): -next physical exam due after 11/21/2025 -eye care facilitated by Dr. Stubbs at [facility], seen 06/2024 -dental home is [place] [facility] care proxy on file 12/03/23 Assessment & Plan (07/01/2024 11:04 AM EDT): -next physical exam due after 08/12/2024 -eye care facilitated by Dr. Stubbs seen 11/2023 -dental home is [place] [facility] care proxy on file 12/03/23 Assessment & Plan (08/12/2023 1:17 PM EDT): -next physical exam due after 08/12/2024 -eye care facilitated by Dr. Stubbs -dental home is [place] History of endometrial cancer 12/19/2021 Overview (08/05/2023): [...] residual on most recent CT. Follow up sales compensation analyst onc. Assessment & Plan (07/01/2024 11:04 AM [...] residual on most recent CT. Follow up sales compensation analyst onc. Assessment & Plan (08/05/2023 10:03 AM [...] residual on most recent CT. Follow up sales compensation analyst onc. Urinary incontinence 12/19/2021 Anemia of chronic [...] Shay with [facility] 09/2023 -Had nephrology follow up 05/2024 Backache [...] trying to get her a scooter. Her immigration case worker is Cris Ibarra , phone #: [phone]. Was last seen on 04/2019 by [employer] [...] trying to get her a scooter. Her immigration case worker is Cris Ibarra , phone #: [phone]. Was last seen on 04/2019 by [employer] [...] (01/10/2025): Diabetes is controlled. Followed at Endocrinology [facility] with HENOK King note from 10/13/24 [...] EST): Diabetes is controlled. Followed at Endocrinology [facility] with HENOK King note from 10/13/24 reviewed Lab Results Component Value Date HGBA1C 8.5 (A) 11/21/2024 HGBA1C 7.8 (H) 07/21/2024 HGBA1C 8.5 (A) 07/01/2024 - Lab Results Component Value Date CREATININE 1.07 08/11/2024 EGFR 49 08/11/2024 MICROALBCREU 61.4 (H) 07/21/2024 MICROALBCREU 13.3 08/13/2023 LDLCHOLCAL 65 07/21/2024 -Juliano/Arb: none due to hx hyperkalemia -Statin therapy: rosuvastatin 20mg -Diabetic eye exam: with Dr. Stubbs, [facility] 06/2024 -Diabetic foot exam: [...] EST): Diabetes is controlled. Followed at Endocrinology [facility] Lab Results Component Value Date HGBA1C [...] at home. PAP smear: UTD. Fu'd by EXTRACT OPERATOR due to hx malignancy Mammogram:UTD, no need [...] EDT): Uncontrolled as per last month's A1c. PEREZ w PCP Hyperkalemia 04/22/2021 12/02/2023 Encounters Date Type Department Care Team Description 02/24/2025 Orders Only [facility] [address] [place] [address] [phone] Hazel Kilgroe MD Diarrhea, unspecified type (Primary Dx) 02/15/2025 Telephone [facility] [address] [place] [address] [phone] Hazel Kilgore MD Lab order Question 02/15/2025 Refill [facility] [address] [place] [address] Hazel Kilgore MD Iron deficiency 02/14/2025 Telephone [facility] [address] [place] [address] [phone] Hazel Kilgore MD Referral; Lab Orders 02/14/2025 Telephone [facility] [address] [place] [address] [phone] Hazel Kilgore MD 02/14/2025 Orders Only [facility] [address] [place] [address] [phone] Hazel Kilgore MD Diarrhea, unspecified type (Primary Dx) 02/02/2025 Refill [facility] [address] [place] [address] Hazel Kilgore MD Type 2 diabetes mellitus with stage 3b chronic kidney disease, with long-term current use of insulin ([facility]); Hyperlipidemia, unspecified hyperlipidemia type 01/20/2025 11:30 AM EDT Telemedicine [facility] [address] [place] [address] [phone] Hazel Kilgore MD Diarrhea, unspecified type (Primary Dx) 01/20/2025 Travel 01/20/2025 Telephone [facility] [address] [place] [address] [phone] Hazel Kilgore MD Lab Orders 01/19/2025 Refill [facility] [address] [place] [address] Hazel Kilgore MD Type 2 diabetes mellitus with stage 3a chronic kidney disease, unspecified whether mcfp insulin use ([facility]) 01/13/2025 Refill [facility] [address] [place] [address] Hazel Kilgore MD Iron deficiency 01/10/2025 11:00 AM EST Office Visit [facility] [address] [place] [address] [phone] Hazel Kilgore MD Diarrhea, unspecified type (Primary Dx); Acute conjunctivitis of right eye, unspecified acute conjunctivitis type; Primary hypertension; Type 2 diabetes mellitus with other specified complication, with long-term current use of insulin ([facility]) 01/10/2025 Travel 01/08/2025 Refill [facility] [address] [place] [address] Hazel Kilgore MD Primary hypertension 12/19/2024 Telephone [facility] [address] [place] [address] [phone] Hazel Kilgore MD [employer] (Pad, 1 Pad prevail, Surcr cardinal protect LG) 12/16/2024 Telephone [facility] [address] [place] [address] [phone] Hazel Kilgore MD Durable Medical Equipment (Incont supplies) 12/09/2024 Refill [facility] [address] [place] [address] Hazel Kilgore MD Iron deficiency 12/07/2024 Refill [facility] [address] [place] [address] [phone] Hazel Kilgore MD Type 2 diabetes mellitus with other specified complication, with long-term current use of insulin ([facility]); Renal osteodystrophy; Gastroesophageal reflux disease, unspecified whether esophagitis present 12/04/2024 Refill [facility] [address] [place] [address] Hazel Kilgore MD Constipation, unspecified constipation type [...] 03/27/2025 10:45 AM EDT Telemedicine [facility] [address] [place] [address] Hazel Kilgore MD [address] [place] [address] Health Maintenance Due Date Last Done Comments [...] Procedure Name Priority Date/Time Associated Diagnosis Comments CDIFF GENE PCR Routine 02/22/2025 1:55 PM EDT Diarrhea, unspecified type GASTROINTESTINAL PANEL Routine 10:30 AM EST Diarrhea, unspecified type Type 2 diabetes mellitus with other specified complication, with long-term current use of insulin (CMS/HCC) TSH W/REFLEX TO FT4 Routine 01/10/2025 1 [...] Recently Relevant to Health Maintenance Results * CDiff Gene PCR (02/22/2025 1:55 PM EDT) [facility] CDiff Gene PCR NEGATIVE Negative [facility] Comment:If C. difficile stro ngly suspected despite one negativetest, a second test may be sent vs. empiric treatment forC. difficile infection. 02/22/2025 1:55 PM EDT 02/22/2025 4:20 PM EDT Hazel Kilgore MD LAB BODY FLUIDS AND STOOLS ORDERABLES Final Result [facility] [address] [place] [phone] * Stool - Gastrointestinal panel (01/12/2025 10:30 AM EST) [facility] Campylobacter Not Detected Not Detect. [facility] Plesiomonas shigelloides Not Detected Not Detect. [facility] Salmonella Not Detected Not Detect. [facility] Vibrio Not Detected Not Detect. [facility] Vibrio cholerae Not Detected Not Detect. [facility] YERSINIA ENTEROCOLITICA Not Detected Not Detect. [facility] Enteroaggregative E. coli (EAEC) Not Detected Not Detect. [facility] Enteropathogenic E. coli (EPEC) Not Detected Not Detect. [facility] Enterotoxigenic E. coli (ETEC) lt/st Not Detected Not Detect. [facility] Shiga-like toxin-producing E. coli (STEC) stx1/stx2 Not Detected Not Detect. [facility] E coli O157 Not applicable Not Detect. [facility] Comment:E. coli containing t he O157 antigen are a subset ofShiga-like toxin- producing E. coli (STEC). Shigella/Enteroinvasive E. coli (EIEC) Not Detected Not Detect. [facility] Cryptosporidium Not Detected Not Detect. [facility] Cyclospora cayetanensis Not Detected Not Detect. [facility] Entamoeba histolytica Not Detected Not Detect. [facility] Giardia lamblia Not Detected Not Detect. [facility] Adenovirus F 40/41 Not Detected Not Detect. [facility] Astrovirus Not Detected Not Detect. [facility] Norovirus GI/GII Not Detected Not Detect. [facility] Rotavirus A Not Detected Not Detect. [facility] Sapovirus Not Detected Not Detect. [facility] Comment: All results must be [...] assay is performed by Multiplexed PCR, utilizing AdTrib Array. Stool Rectal contents / Unknown 01/12/2025 10:30 AM EST 01/12/2025 1:57 PM EST Hazel Kilgore MD LAB MICROBIOLOGY - GENERAL ORDERABLES Final Result Performing Organization Address [facility] Phone Number [facility] [address] [place] [address] [phone] * TSH W/Reflex to FT4 (01/10/2025 11:39 AM EST) TSH reflex Free T4 1.88 0.32 - 4.0 uIU/mL [facility] Blood Venous blood specimen / Unknown 01/10/2025 11:39 AM EST 01/10/2025 1:12 PM EST Hazel Kilgore MD LAB BLOOD ORDERABLES Final Result Performing Organization Address [facility] Number [facility] [address] [place] [address] [phone] * Albumin, Random Urine W/Creatinine (01/10/2025 11:39 AM EST) Pathologist [facility] Creatinine, Urine 85.67 mg/dL [facility] Microalbumin Urine 12.0 mg/L [facility] Microalbum Creatinine Ratio Ur 14.0 <30 ug/mg cr [facility] Comment:Albumin/Creatinine R atio Reference Ranges: Normal: < 30 ug/mg creatinine Microalbuminuria: 30 - 300 ug/mg creatinineClinical Albuminuria: > 300 ug/mg creatinine Urine 01/10/2025 11:3 9 AM EST 01/10/2025 1:12 PM EST Hazel Kilgore MD LAB URINE ORDERABLES Final Result Performing Organization Address [facility] Phone Number [facility] [address] [place] [address] [phone] * (ABNORMAL) CBC auto differential (01/10/2025 11:39 AM EST) White Blood Count 6.8 4.8 - 10.8 X10*3/uL [facility] Red Blood Count 5.10 4.20 - 5.50 X10*6/uL [facility] Hemoglobin 12.1 12.0 - 16.0 g/dl [facility] Hematocrit 41.3 37.0 - 47.0 % [facility] Mean Corpuscular Volume 81.0 80.0 - 98.0 fL [facility] Mean Corpuscular Hemoglobin 23.7(L) 27.0 - 33.0 pg [facility] Mean Corpuscular HGB Conc 29.3(L) 31.0 - 35.0 g/dl [facility] Red Cell Distribution Width 16.4(H) 11.0 - 16.0 % [facility] Platelet Count 163 160 - 400 X10*3/uL [facility] Mean Platelet Volume 12.2 9.4 - 12.3 fL [facility] Neutrophils Percent Auto 67.5 45 - 73 % [facility] Imm Gran Pct Auto 0.3 0.0 - 0.4 % [facility] Lymphocytes Percent Auto 21.6 20 - 40 % [facility] Monocytes Percent Auto 8.9 2 - 11 % [facility] Eosinophils Percent Auto 1.6 0 - 4 % [facility] Basophils Percent Auto 0.1 0 - 2 % [facility] NRBC Pct Auto 0.0 0.0 - 0.2 /100WBC [facility] Neutrophils Absolute Auto 4.6 2.0 - 8.3 x10*3/uL [facility] Imm Gran Abs Auto 0.02 0.00 - 0.03 X10*3/uL [facility] Lymphocytes Absolute Auto 1.5 1.2 - 4.9 X10*3/uL [facility] Monocytes Absolute Auto 0.6 0.1 - 1.2 X10*3/uL [facility] Eosinophils Absolute Auto 0.1 0.0 - 0.4 X10*3/uL [facility] Basophils Absolute Auto 0.0 0.0 - 0.2 X10*3/uL [facility] NRBC Abs Auto 0.000 0.0 - 0.012 X10*3/uL [facility] Blood Venous blood specimen / Unknown 01/10/2025 11:39 AM EST 01/10/2025 1:11 PM EST Hazel Kilgore MD LAB BLOOD ORDERABLES Final Result Performing Organization Address City/[facility]/ZIP Co de Phone Number [facility] [address] [place] [address] [phone] * (ABNORMAL) Hemoglobin A1c (01/10/2025 11:39 AM EST) Hemoglobin A1c 7.6(H) <6.0 % [facility] Comment:Hemoglobin A1C Refer ence Range Adults: 4.8 - 6.0 % Non diabetic: < 6.0 % Goal: < 7.0 %Additional Action Suggested: > 8.0 %Note: Hemoglobin A1c results are invalid for patients with abnormal amounts of HbF. Blood transfusions may impact the HbA1c concentration in the patient sample. Estimated Average Glucose 171 mg/dL [facility] Comment:eAG = Estimated ave rage glucose which is %A1C expressed asaverage glucose, using the formula of the O2I-UsnsnuzZncpgzq Glucose study (ADAG), Diabetes Care, Vol.31,#8,Jun. 2007 Blood Venous blood specimen / Unknown 01/10/2025 11:39 AM EST 01/10/2025 1:12 PM EST Hazel Kilgore MD LAB BLOOD ORDERABLES Final Result Performing Organization Address City/[facility]/ZIP Co de Phone Number [facility] [address] [place] [address] [phone] * (ABNORMAL) Hepatic Function Panel (01/10/2025 11:39 AM EST) Bilirubin, Total 0.4 0.0 - 1.0 mg/dL [facility] Bilirubin, Direct 0.2 0.0 - 0.5 mg/dL [facility] Aspartate Amino Transferase 33(H) 5 - 31 U/L [facility] Alanine Aminotransferase 43(H) 0 - 31 U/L [facility] Total Protein 7.3 6.5 - 8.0 g/dL [facility] Albumin Level 3.7 3.5 - 5.0 g/dL [facility] Alkaline Phosphatase 66 39 - 117 U/L [facility] Blood Venous blood specimen / Unknown 01/10/2025 11:39 AM EST 01/10/2025 1:12 PM EST us Hazel Kilgore MD LAB BLOOD ORDERABLES Final Result [facility] [address] [place] [address] [phone] * Lipid Panel, Standard (01/10/2025 11:39 AM EST) Triglycerides 81 <150 mg/dL [facility] Comment:Desirable Triglyceri de: less than 150 mg/dLBorderline High Triglyceride 150-199 mg/dLHigh Triglyceride: 200-499 mg/dLVery High Triglyceride: greater than or equal to 5OO mg/dL Cholesterol 133 <200 mg/dL [facility] Comment:Desirable Cholestero l: less than 200 mg/dLBorderline High Cholesterol: 200-239 mg/dLHigh Cholesterol: greater than 239 mg/dL LDL Cholesterol Calculated 70 <100 mg/dL [facility] Comment:Desirable LDL: less than 100 mg/dLNear Optimal/Above Optimal LDL: 110- 129 mg/dLBorderline High LDL: 130-159 mg/dLHigh LDL: 160-189 mg/dLVery High LDL: greater than or equal to 190 mg/dL HDL Cholesterol 47 >40 mg/dL [facility] Comment:Desirable HDL: great er than 40 mg/dL Note: This HDL assay may give artificially low results in patients with liver disease. Blood Venous blood specimen / Unknown 01/10/2025 11:39 AM EST 01/10/2025 1:12 PM EST Hazel Kilgore MD LAB BLOOD ORDERABLES Final Result Performing Organization Address [facility] Co de Phone Number [facility] [address] [place] [address] [phone] * (ABNORMAL) Basic Metabolic Panel (01/10/2025 11:39 AM EST) [facility] Sodium 142 135 - 145 mmol/L [facility] Potassium 4.7 3.3 - 5.1 mmol/L [facility] Chloride 104 96 - 108 mmol/L [facility] Carbon Dioxide 32(H) 22 - 29 mmol/L [facility] Anion Gap 11(L) 12 - 20 [facility] Urea Nitrogen (BUN) 26(H) 9 - 16 mg/dL [facility] Creatinine, Serum 1.18 0.5 - 1.4 mg/dL [facility] Estimated Glomerular Filt Rate 44 [facility] Comment:Chronic Kidney Disea se: Estimated GFR < 60 mL/min/[id number] Kidney Disease: Estimated GFR < 15 mL/min/1.73m2 Glucose 186(H) 60 - 115 mg/dL [facility] Calcium 9.5 8.4 - 10.2 mg/dL [facility] Blood Venous blood specimen / Unknown 01/10/2025 11:39 AM EST 01/10/2025 1:12 PM EST Hazel Kilgore MD LAB BLOOD ORDERABLES Final Result Performing Organization Address [facility] Co de Phone Number [facility] [address] [place] [address] [phone] * POCT Influenza B manually resulted (01/10/2025 11:16 AM EST) [facility] Rapid Influenza B Ag Negative Negative, Indeterminate QC Media Lot # [id number] Lot# Expiration Date Swab 01/10/2025 11:1 6 AM EST Hazel Kilgore MD POINT OF CARE TEST ENTER/E DIT ORDERABLES Final Result * POCT Influenza A manually resulted (01/10/2025 11:16 AM EST) Rapid Influenza A Ag Negative Negative, Indeterminate QC Media Lot # [id number] Lot# Expiration Date 10,826 Swab Nasopharyngeal structure / Unknown 01/10/2025 11:16 AM EST Hazel Kilgore MD POINT OF CARE TEST ENTER/E DIT ORDERABLES Final Result * POCT Rapid COVID Ag (01/10/2025 11:05 AM EST) Rapid COVID Ag Negative QC Media Lot # [id number] Lot# Expiration Date 942 Swab 01/10/2025 11:0 5 AM EST Hazel Kilgore MD POINT OF CARE TEST ENTER/E DIT ORDERABLES Final Result * Diabetes Eye Exam (04/22/2024 3:23 PM EDT) Eye Exam Normal Normal Comment:follow up one year Chidi Tam MD HEALTH MAINTENANCE Final Result from Last 3 Months or Most Recently Relevant to Health [place] [address] [facility] Advance Directives Documents on File Type Date Recorded Patient Rewind Operator Expl anation Advance Directives and Livin g Will 12/15/2023 Health Care Proxy Care Teams Grocery Store Manager Relationship Specialty Start Date End Date [place], MD Hazel [address] [place] [address] PCP - General Family Medicine 11/09/18 Tee Shay MD 100 [facility] 200 [place] [address] Nephrology 11/07/24 Nia Borja [address] [place] [address] Cardiology 11/07/24 Mary Ann Matthew MA [facility] Endocrinology 3300 [facility] Endocrinology 10/14/24 Derrick Mullen, DPM [address] [place] [address] Podiatry 11/07/24
== END 2025-02-22 13:56 | disposition home or self-care (01) ==
LOC: HO.HHCLNP 13:55
PROVIDERS: Visit Provider Family Medicine
DX: R19.7 Diarrhea, unspecified (principal)
CPT/HCPCS: 87493

== ENCOUNTER 2025-03-17 14:27 | Outpatient (REF) | payer OTHER, SELFPAY ==
--- OUTSIDE RECORDS SUMMARY | 2025-03-17 14:31 | XMS_ITS | Clinical Summary ---
Author Organization 175 [facility] Address [address] [place] [address] Phone Care Team Providers Care Agronomy Supervisor Name Role Phone Hazel Kilgore MD Primary Care Provider [phone] Allergies No known active allergies Medications ammonium [...] 1:30 PM EDT Office Visit Orthopedic Surgery [place] [address] [phone] Derrick Mullen DPM Controlled type 2 diabetes [...] 1:15 PM EDT Office Visit Orthopedic Surgery [facility] [address] [phone] Derrick Mullen, MADIHA [address] [address] Health Maintenance Due Date Last Done Comments [...] * Urine Albumin Creatinine Ratio (08/13/2023) Pathologist [facility] Urine Albumin Creatinine Ratio Abstracted Result [facility] Provider HEALTH MAINTENANCE Final Result * Annual BMP Blood Test (08/13/2023) Pathologist [facility] Annual BMP Blood Test Abstracted [facility] Provider HEALTH MAINTENANCE Final Result * Lipid panel (08/13/2023) [facility] LDL/HDL Ratio 0 Triglycerides 0 mg/dL Cholesterol 0 mg/dL HDL 0 mg/dL LDL Cholesterol 0 mg/dL Blood Venous blood specimen / Unknown Result [facility] Provider LAB BLOOD ORDERABLES Violet l Result * Hemoglobin A1c (01/17/2021) Hemoglobin A1C 0.0 % Blood Venous blood specimen / Unknown Historical Provider LAB BLOOD ORDERABLES Violet l Result from Last 3 Months or Most Recently Relevant to Health Maintenance Insurance [facility] Member Subscriber Plan / Payer (Ef fective 2020-Present) Name:Mary Giles Relation to Subscriber:Self Name:Mary Glies Payer ID:[id number] Group ID:[id number] Type:Not on file Address: [place] [address] [address] [address] MEDICAID - [place] Care Teams Agronomy Supervisor Relationship Specialty Start Date End Date [place], MD Hazel [address] [place] [phone] PCP - General 10/13/23
--- OUTSIDE RECORDS SUMMARY | 2025-03-17 14:31 | XMS_ITS ---
Author Organization [facility] Address [address] [place] [address] Care Team Providers Care Bevel Face Stoner And Polisher Name Role Phone Hazel Kilgore MD Primary Care Provider Diana Aaron Rodriguez [phone] REASON FOR VISIT left v/m Encounters Encounter Location Date Provider Diagnosis [facility] [address] [place] [address] 02/28/2025 Aaron Almazan Plan Of Treatment Next Appt Details Provider Name:Aaron Vannesa Almazan , 07/06/2025 10:40:00 AM, [address], [address], [place], [address], Progress Notes * ELEAZAR MACIAS: 1945 (79 yo F)Acc No.[id number]:02/28/2025 Patient:?HENOK MACIAS :1945???Age:79 Y???Sex:Female Address:[place] [address] * true * Date:? Generated for Printi ng/Fakalinag/eTransmitting on:?03/17/2025 02:31 PM EDT
--- OUTSIDE RECORDS SUMMARY | 2025-03-17 14:31 | XMS_ITS ---
Author Organization [facility] Address [address] [place] [address] Care Team Providers Care Owner Spa Director Name Role Phone Hazel Kilgore MD Primary Care Provider Aaron Cloud [phone] Allergies No Known Allergies REASON FOR VISIT Patient presents today for chronic diarrhea Medications Medication SIG (Take, Route, Frequency, Duration) Notes Start Date End Date Status Isosorbide Mononitrate ER 30 MG TAKE 1 TABLET EVERY MORNING Oral for 30 Active Omeprazole 20 MG TAKE 1 CAPSULE EVERY MORNING WITH A MEAL Oral for 30 Active Doxazosin Mesylate 4 MG TAKE 1 TABLET EV MARIA ESTHER MORNING Oral for 30 Active Vitamin C 500 MG TAKE 1 TABLET TWICE DAILY IN THE MORNING AND IN THE EVENING Oral for 30 Active SM Aspirin Adult Low Strength 81 MG TAKE 1 TABLET EVERY MORNING Oral for 30 Active NovoLOG FlexPen 100 UNIT/ML INJECT 0-4 UNITS BEFORE BREAKFAST, INJECT 12-14 UNITS BEFORE LUNCH, AND INJECT 14-16 UNITS BEFORE SUPPER Subcutaneous for 39 Activ e Metoprolol Succinate 25 MG 1 capsule Orally Once a day Active Farxiga 10 MG 1 tablet Orally Once a day Active Eliquis 5 MG as directed Orally Active Calcium 500 MG 1 tablet with meals Orally Twice a day Active Furosemide 40 MG TAKE 1 TABLET TWICE DAILY IN THE MORNING AND IN THE EVENING Oral for 90 Active Basaglar KwikPen 100 UNIT/ML INJECT 42 UNITS SUBCUTANEOUSLY AT BEDTIME Subcutaneous for 34 Active amLODIPine Besylate 5 MG TAKE 1 TABLET B Y MOUTH EVERY DAY Oral for 90 Active Gabapentin 600 MG TAKE 1 TABLET THREE TIMES DAILY IN THE MORNING, EVENING, AND BEDTIME Oral for 30 Active Senna 8.6 MG TAKE 2 TABLETS EVERY DAY AT BEDTIME Oral for 30 Active Ferrous Sulfate 325 (65 Fe) MG TAKE 1 TABLET THREE TIMES DAILY IN THE MORNING, AT NOON, AND IN THE EVENING Oral for 30 Active Calcium Carbonate-Vitamin D 600-400 MG-UNIT TAKE 1 TABLET TWICE DAILY IN THE MORNING AND IN THE EVENING Oral for 30 Active Rosuvastatin Calcium 20 MG TAKE 1 TABLET AT BEDTIME Oral for 30 Active Social History Tobacco Use: Social History Observation [...] Negative Section Notes: Nonsmoker; no sig. alcohol Vital Signs Temperature 97.3 degrees Fahrenheit 03/17/20 25 Blood pressure systolic 001 mm Hg 03/17/20 25 Blood pressure diastolic 01 mm Hg 025 Height 62 in 03/17/2025 Weight 162 lbs 03/17/2025 BMI 29.63 kg/m2 03/17/2025 Encounters Encounter Location Date Provider Diagnosis [facility] [address] [place] [address] 03/17/2025 Aaron Almazan Diarrhea R19.7 and Weight loss R63.4 Assessments Encounter Date Diagnosis (ICD Code) Assessment Notes Treatment Notes Treatment Clinical Notes Section Notes 03/17/2025 Diarrhea (ICD-10 - R19.7) Continue to use the Imodium for the diarhea. We will see how you do on the lower dose of Trulicity. If uyou continue with diarhea and weight loss we may need to do a colonoscopy. 03/17/2025 Weight loss (ICD-10 - R63.4) Plan Of Treatment Treatment Notes Assessment Notes Diarrhea Continue to use the Imodium for the diarhea. We will see how you do on the lower dose of Trulicity. If uyou continue with diarhea and weight loss we may need to do a colonoscopy. Pending Test Test Name Order Date CRP 03/17/2025 CBC w DIFF 03/17/2025 SED RATE (ESR) 03/17/2025 TRYPSIN,STOOL 03/17/2025 TSH reflex Free T4 03/17/2025 Celiac Panel 10 03/17/2025 Pancreatic Elastase-1 03/17/2025 Fecal Fat Qualitative 03/17/2025 Calprotectin, Fecal 03/17/2025 Celiac Disease Panel 03/17/2025 Next Appt Details Follow Up: 2-3 months, Nga n: Provider Name:Aaron Granado Almazan , 07/06/2025 10:40:00 AM, [address] [place] [address], [place] [address], [place], [address], Progress Notes * MIRI AVILAPRABHAKAROB:1944 (79 yo F)Acc No.[id number]:03/17/2025 Progress Notes Patient:?INNA AVILA Provider:?Aaron Almazan MD :1945???Age:79 Y???Sex:Female D ate:03/17/2025 Address:[address] [place], [place] [id number] Pcp:Hazel Kilgore MD Subjective: * Chief Complaints: * ???1. Patient presents today for chronic diarrhea. * Medical History:?Stage 3 kid keren disease--Dr. Shay, IDDM, Hx of uterine cancer--2015--surgery and chemo at [facility], COPD, Back pain--scheduled for a pain stimulator insertion for 10/2018, Negative colonoscopy in 2006, EGD in 2006--- questionable duodenal biopsies in regard to possible celiac disease, but celiac disease serologies were negative and she was never started on a gluten-free diet, Neg SB capsule tudy in 2006--for eval of Iron def anemia, HTN, Hyperlipidemai, Urinary incontinence, Denies PA or CVA, She had a negative screening colonoscopy in October 2018. * Surgical History:?NICOLAS--uteri ne cancer 2016, Back pain stimulator being placed in 10/2018 , NICOLAS . * Family History:?Father: dece ased.?Mother: , diagnosed with Diabetes.? no known hx of colon cancer.? Son has liver cancer. * Social History:?Tobacco Use:?Tobacco Use/Smoking?Patient is a?former smoker,?When did you stop smoking??25 years ago,?How long has it been since you last smoked??> 10 years.?Drugs/Alcohol:?Alcohol Screen?Did you have a drink containing alcohol in the past year??No,?Points?0,?Interpretation?Negative.?Miscellaneous:?Marital status: single. Occupation: retired. ???Nonsmoker; no sig. alcohol. * Medications:?Taking Metoprol ol Succinate 25 MG Capsule ER 24 Hour Sprinkle 1 capsule Orally Once a day , Taking Farxiga 10 MG Tablet 1 tablet Orally Once a day , Taking Eliquis 5 MG Tablet as directed Orally , Taking Calcium 500 MG Tablet 1 tablet with meals Orally Twice a day , Taking NovoLOG FlexPen 100 UNIT/ML Solution Pen- injector INJECT 0-4 UNITS BEFORE BREAKFAST, INJECT 12-14 UNITS BEFORE LUNCH, AND INJECT 14-16 UNITS BEFORE SUPPER Subcutaneous , Taking SM Aspirin Adult Low Strength 81 MG Tablet Delayed Release TAKE 1 TABLET EVERY MORNING Oral , Taking Vitamin C 500 MG Tablet TAKE 1 TABLET TWICE DAILY IN THE MORNING AND IN THE EVENING Oral , Taking Isosorbide Mononitrate ER 30 MG Tablet Extended Release 24 Hour TAKE 1 TABLET EVERY MORNING Oral , Taking Omeprazole 20 MG Capsule Delayed Release TAKE 1 CAPSULE EVERY MORNING WITH A MEAL Oral , Taking Doxazosin Mesylate 4 MG Tablet TAKE 1 TABLET EVERY MORNING Oral , Taking Calcium Carbonate-Vitamin D 600-400 MG-UNIT Tablet TAKE 1 TABLET TWICE DAILY IN THE MORNING AND IN THE EVENING Oral , Taking Rosuvastatin Calcium 20 MG Tablet TAKE 1 TABLET AT BEDTIME Oral , Taking Senna 8.6 MG Tablet TAKE 2 TABLETS EVERY DAY AT BEDTIME Oral , Taking Ferrous Sulfate 325 (65 Fe) MG Tablet TAKE 1 TABLET THREE TIMES DAILY IN THE MORNING, AT NOON, AND IN THE EVENING Oral , Taking Gabapentin 600 MG Tablet TAKE 1 TABLET THREE TIMES DAILY IN THE MORNING, EVENING, AND BEDTIME Oral , Taking amLODIPine Besylate 5 MG Tablet TAKE 1 TABLET BY MOUTH EVERY DAY Oral , Taking Furosemide 40 MG Tablet TAKE 1 TABLET TWICE DAILY IN THE MORNING AND IN THE EVENING Oral , Taking Basaglar KwikPen 100 UNIT/ML Solution Pen-injector INJECT 42 UNITS SUBCUTANEOUSLY AT BEDTIME Subcutaneous , Discontinued levoFLOXacin 750 MG Tablet TAKE 1 TABLET BY MOUTH EVERY DAY Oral , Discontinued Silver sulfADIAZINE 1 % Cream APPLY TO WOUND WITH DRY STERILE DRESSING External , Discontinued traMADol HCl 50 MG Tablet (Schedule IV Drug) TAKE 1 TABLET BY MOUTH EVERY 8 HOURS NEEDED Oral , Discontinued Flovent HFA 110 MCG/ACT Aerosol INHALE 1 PUFF BY MOUTH TWICE DAILY RINSE MOUTH AFTER USING. Inhalation , Discontinued Calcium Carbonate-Vitamin D 600-400 MG-UNIT Tablet TAKE 1 TABLET TWICE DAILY IN THE MORNING AND IN THE EVENING Oral , Discontinued metFORMIN HCl ER 500 MG Tablet Extended Release 24 Hour TAKE 1 TABLET EVERY EVENING WITH A MEAL Oral , Discontinued DOK 100 MG Capsule TAKE 1 CAPSULE TWICE DAILY IN THE MORNING AND AT BEDTIME Oral , Discontinued LORazepam 0.5 MG Tablet (Schedule IV Drug) TAKE 1 TABLET BY MOUTH ONCE DAILY NEEDED Oral , Discontinued Doxycycline Hyclate 100 MG Capsule TAKE ONE CAPSULE BY MOUTH TWICE A DAY FOR 7 DAYS Oral , Medication List reviewed and reconciled with the patient * Allergies:?N.K.D.A. Objective: * Vitals:?Wt: 162 lbs, Ht: 62 in, BMI: 29.63 Index, BP: 001/01 mm Hg, Temp: 97.3, Wt-k.48. Assessment: * Assessment: 1.?Diarrhea - R19.7 (Primary )???2.?Weight loss - R63.4??? Plan: * Treatment: 2.?Weight loss?LAB: CRP ?LAB: CBC w DIFF ?LAB: SED RATE (ESR) ?LAB: TSH reflex Free T4 ?LAB: Celiac Panel 10 ?LAB: Celiac Disease Panel * Preventive Medicine:? ??Counseling:?Care goal follow-up plan:?Above Normal BMI Follow-up?Dietary management education, guidance, and counseling,?BMI management provided?Yes.? ??Urinary Incontinence:?Urinary Incontinence?Assessment:?Present,?Plan of care documented:?Yes,?Type of plan of care:?Bladder training.? ??Screenings:?Fall Risk Screening?Fall Risk Assessment:?Two or more falls with injury in the past year,?Screening:?Two or more falls with injury in the past year,?Assessment:?Not performed, no reason specified,?Plan of Care:?Documented,?Type of fall plan of care:?Balance, strength and gait training or instruction provided.? * Follow Up:?2-3 months * * The named appointment provid er may or may not be the originator of this progress note, and it is not deemed complete until electronically signed by the appointment provider. Sign off status: Pending * Provider:?Aaron Almazan MD Date:? 025 Generated for Evette bejarano/Zuleima/Daryl on:?03/17/2025 02:31 PM EDT
--- OUTSIDE RECORDS SUMMARY | 2025-03-17 14:31 | XMS_ITS | Patient Health Record ---
Author Organization [facility] Address [address] [place] [address] Care Team Providers Care Electronic Prepress Technician Name Role Phone Hazel Kilgore MD Primary Care Provider Diana Aaron Rodriguez Unavailable [phone] Allergies No Known Allergies Reason For Referral No Information Medications Medication SIG (Take, Route, Frequency, Duration) Notes Start Date End Date Status Metoprolol Succinate 25 MG 1 capsule Orally Once a day Active Isosorbide Mononitrate ER 30 MG TAKE 1 TABLET EVERY MORNING Oral for 30 Active Farxiga 10 MG 1 tablet Orally Once a day Active Omeprazole 20 MG TAKE 1 CAPSULE EVERY MORNING WITH A MEAL Oral for 30 Active Vitamin C 500 [...] TABLET AT BEDTIME Oral for 30 Active Eliquis 5 MG as directed Orally Active Doxazosin Mesylate 4 MG TAKE 1 TABLET EV MARIA ESTHER MORNING Oral for 30 Active Calcium 500 MG 1 tablet with [...] Status Comme nts Influenza Unknown 08/09/2018 Administered Influenza Unknown 07/26/2024 Administered Social History Tobacco Use: Social History [...] Negative Section Notes: Nonsmoker; no sig. alcohol Nonsmoker; no sig. alcohol Problems Problem Type SNOMED Code ICD Code Onset Dates Problem Status W/U Status Risk Notes Problem 908826691 Encounter for screening for malignant neoplasm of colon (Z12.11) Active confirmed Problem 142139322 Long-term use of aspirin therapy (Z79.82) Active confirmed Problem 81892909 Constipation, unspecified constipation type (K59.00) Active confirmed Vital Signs Temperature 97.3 degrees Fahrenheit 03/17/2025 Blood pressure diastolic 01 mm Hg 03/17/2025 Height 62 in 03/17/2025 Blood pressure systolic 001 mm Hg 03/17/2025 Weight 162 lbs 03/17/2025 BMI 29.63 kg/m2 03/17/2025 Encounters Encounter Location Date Provider Diagnosis [facility] [address] [place] [address] 03/17/2025 Aaron Almazan Diarrhea R19.7 and Weight loss R63.4 [facility] [address] [place] [address] 02/28/2025 Aaron Almazan Assessments Encounter Date Diagnosis (ICD Code) Assessment [...] loss (ICD-10 - R63.4) Plan Of Treatment Pending Test Test Name Order Date CRP 03/17/2025 CBC w DIFF 03/17/2025 SED RATE (ESR) 03/17/2025 TRYPSIN,STOOL 03/17/2025 TSH reflex Free T4 03/17/2025 Celiac Panel 10 03/17/2025 Pancreatic Elastase-1 03/17/2025 Fecal Fat Qualitative 03/17/2025 Calprotectin, Fecal 03/17/2025 Celiac Disease Panel 03/17/2025 Future Test Test Name Order Date COLONOSCOPY 09/14/2018 Next Appt Details Provider Name:Aaron Almazan , 07/06/2025 10:40:00 AM, [address], [address], [place], [address], Insurance Providers Payer Name Payer Address Payer Phone Subscriber Number Group Number Insured Name Patient Relationship to Insured Coverage Start Date Coverage End Date [facility] [address] [facility] [place] [address] [id number] INNA SOLANO Self - patient is the insured Medical (General) History Medical History History ICD Code Stage 3 kidney disease--Dr. Shay IDDM Hx of uterine cancer--2015--surgery and chemo at [facility] COPD Back pain--scheduled for a pain stimulat or insertion for 10/2018 Negative colonoscopy in 2006 EGD in 2006--- questionable duodenal biopsies in regard to possible celiac disease, but celiac disease serologies were negative and she was never started on a gluten-free diet Neg SB capsule tudy in 2006--for eval of Iron def anemia HTN Hyperlipidemai urinary incontinence Denies [place] or CVA She had a negative screening colonoscopy in October 2018 Surgical History Surgery Date(Month/Year) NICOLAS Back pain stimulator being placed in 2017 NICOLAS--uterine cancer 2016
--- OUTSIDE RECORDS SUMMARY | 2025-03-17 14:31 | XMS_ITS | Encounter Summary ---
Author Organization [facility] Address [address] [facility] 200 [place] [address] Phone Care Team Providers Care Strategy Planning Consultant Name Role Phone Hazel Kilgore MD Primary Care Provider U navailable Reason for Visit * Reason Comments Med Refill Encounter Details Date Type Department Care Team (Late Contact Info) Description 04/24/2022 Refill [facility] [address] [place] [address] Tee Shay MD [address] [facility] [address] [place] [address] Social History Tobacco Use Types [...] Care Team (Late st Contact Info) Description 05/22/2025 2:30 PM EDT Office Visit [facility] [address] [address] Amaya Edgar ARNP [address] [address] documented as of this encounter Visit Diagnoses Not on filedocumented in this encounter Care Teams Strategy Planning Consultant Relationship Specialty Start Date End Date Hazel Kilgore MD [address] [place] [address] PCP - General 11/19/20 documented as of this encounter
--- OUTSIDE RECORDS SUMMARY | 2025-03-17 14:31 | XMS_ITS | Encounter Summary ---
Author Organization [facility] Address [address] [address] Phone Care Team Providers Care Bargain Table Clerk Name Role Phone Kleberg, Hazel Soriano MD Primary Care Provider U catracho Encounter Details Date Type Department Care Team (Late st Contact Info) Description 03/10/2025 Office Communication [facility] [address] [address] Tee Shay MD [address] [address] Social History Tobacco Use Types [...] Telephone Encounter - Tee Shay MD - 03/10/2025 9:34 AM EDT Needs f/u in 6-8 wks--can be with Natalie--thx documented in this encounter Plan of Treatment Upcoming Encounters Date Type Department Care Team (Late st Contact Info) Description 05/22/2025 2:30 PM EDT Office Visit [facility] [address] [address] Amaya Edgar ARNP [address] [address] documented as of this encounter Visit Diagnoses Not on filedocumented in this encounter Care Teams Bargain Table Clerk Relationship Specialty Start Date End Date Kleberg, Hazel Soriano MD [address] [place] [address] PCP - General 11/19/20 documented as of this encounter
--- OUTSIDE RECORDS SUMMARY | 2025-03-17 14:31 | XMS_ITS | Clinical Summary ---
Author Organization [facility] Address [address] [address] Phone Care Team Providers Care Electrical Design Technologist Name Role Phone Hazel Kilgore MD Primary [...] MOUTH EVERY 4 TO 6 HOURS NEEDED Active ascorbic acid (VITAMIN C) 500 MG tablet TAKE 1 TABLET BY MOUTH TWICE DAILY IN THE MORNING AND IN THE EVENING Active docusate sodium (COLACE) 100 MG capsule TAKE 1 CAPSULE BY MOUTH TWICE DAILY IN THE MORNING AND AT BEDTIME Active FeroSul 325 (65 Fe) MG tablet TAKE 1 TABLET BY MOUTH THREE TIMES DAILY IN THE MORNING, AT NOON, AND IN THE EVENING Active Flovent HFA 110 MCG/ACT inhaler INHALE 1 PUFF TWICE DAILY Active gabapentin (NEURONTIN) 600 MG tablet TAKE 1 TABLET BY MOUTH THREE TIMES DAILY IN THE MORNING, EVENING, AND BEDTIME Active isosorbide mononitrate (IMDUR) 30 MG 24 hr tablet Take 30 mg by mouth Active omeprazole (PriLOSEC) [address] capsule TAKE 1 CAPSULE BY MOUTH EVERY MORNING BEFORE BREAKFAST 021 Active Calcium Carbonate-Linda min D3 600-400 MG-UNIT tablet 021 Active Trulicity 0.75 MG/0.5ML solution pen-injector INJECT ONE PEN (=0.75MG) SUBCUTANEOUSLY ONCE A WEEK DIRECTED 021 Active Dapagliflozin Propanediol (FARXIGA PO) Take by [...] (six) hours if needed for anxiety Active furosemide (LASIX) 40 MG tabletIndicati ons:Stage 3b chronic kidney disease (HCC),Renal disorder due to type 2 diabetes mellitus <Diabetic nephropathy> (HCC) TAKE 1 TABLET BY MOUTH EVERY MORNING 90 tablet 025 Active amLODIPine (Norvasc) 5 MG tablet Take 1 tablet (5 mg total) by mouth in the morning and 1 tablet (5 mg total) in the evening. 180 tablet 025 2024 Active doxazosin (CARDURA) 4 MG tablet TAKE 1 AND 1/2 TABLETS BY MOUTH AT BEDTIME 45 tablet 5 025 Active doxazosin (CARDURA) 4 MG tablet TAKE 1 AND 1/2 TABLETS BY MOUTH AT BEDTIME 45 tablet 5 024 2024 Discontinued Active Problems Problem Noted Date Diagnosed Date [...] Encounters Date Type Department Care Team Description 03/10/2025 Office Communication [facility] [address] [place] [address] Tee Shay MD 03/10/2025 Refill [facility] [address] [place] [address] Tee Shay MD 12/19/2024 4:15 PM EST Telemedicine [facility] [address] [place] [address] Tee Shay MD Stage 3b chronic kidney disease (HCC) (Primary Dx); Benign hypertensive renal disease from Last 3 Months Immunizations Immunization Administration [...] 08/31/2020 12:00 PM EDT Plan of Treatment Upcoming Encounters Date Type Department Care Team (Late st Contact Info) Description 05/22/2025 2:30 PM EDT [facility] Visit [facility] [address] [address] Herve AmayaSTEPHANIE [address] [address] Health Maintenance Due Date Last Done Comments Pneumococcal Vaccine: 50+ Years (2 of 2 - PCV) 05/04/2015 05/04/2014 Diabetes: Ophthalmology Exam 12/10/2020 Diabetes: Pedal Pulse Checked 12/10/2020 Diabetes: Sensory Foot Exam 12/10/2020 Diabetes: Visual Foot Exam 12/10/2020 Diabetes: Hemoglobin A1C 04/12/2025 025, 11/21/2024, 02/26/2024, Additional history exists Pneumococcal Vaccine: Peds (0 to 5 Years) and At-Risk Patients (6 to 49 Years) Discontinued 05/04/2014 Hepatitis B Vaccine Aged Out 09/22/2014, 10/19/2009, 09/17/2009 No longer eligible based on patient's age to complete this topic Influenza Vaccine Completed 11/21/2024, , 01/19/2020, Additional history exists Insurance [address] [place] [id number] [facility] [place] [facility] ([id number]) [facility] ([id number]) Care Teams Electrical Design Technologist Relationship Specialty Start Date End Date [place], Hazel Soriano MD [address] [place] [address] PCP - General 11/19/20
--- OUTSIDE RECORDS SUMMARY | 2025-03-17 14:31 | XMS_ITS | Encounter Summary ---
Author Organization [facility] Address [address] [place] [address] Phone Care Team Providers Care Event Organizer Name Role Phone Hazel Kilgore MD Primary Care Provider U catracho Encounter Details Date Type Department Care Team (Late st Contact Info) Description 03/24/2022 Telephone [facility] [address] [place] [address] Tee Shay MD 8695 [facility] [address] [place] [address] Social History Tobacco Use Types [...] - 03/24/2022 11:28 AM EDT Renae from [facility] called she would like to know if an updated script for lasix 1 tablet in the AM can besent to [facility] pharmacy seeing as the pt has not been taking her PM dose due to frequent nighttime urination. Thank you documented in this encounter Plan of Treatment Upcoming Encounters Date Type Department Care Team (Late st Contact Info) Description 05/22/2025 2:30 PM EDT Office Visit [facility] [address] [address] Amaya Edgar ARNP [address] [address] documented as of this encounter Visit Diagnoses Not on filedocumented in this encounter Care Teams Event Organizer Relationship Specialty Start Date End Date Hazel Kilgore MD 230 [place] [address] PCP - General 11/19/20 documented as of this encounter
[2025-03-17 14:54] LABS: MANUAL DIFF FLAG NO
[2025-03-17 15:18] LABS: Basophils Percent Auto 0.2 % (0-2); Eosinophils Absolute Auto 0.1 X10*3/uL (0.0-0.4); Eosinophils Percent Auto 2.1 % (0-4); Hematocrit 35.6 % (37.0-47.0); Hemoglobin 10.5 g/dl (12.0-16.0); Imm Gran Abs Auto 0.02 X10*3/uL (0.00-0.03); Imm Gran Pct Auto 0.3 % (0.0-0.4); Lymphocytes Absolute Auto 1.6 X10*3/uL (1.2-4.9); Mean Corpuscular HGB Conc 29.5 g/dl (31.0-35.0); Mean Corpuscular Hemoglobin 23.9 pg (27.0-33.0); Mean Corpuscular Volume 81.1 fL (80.0-98.0); Mean Platelet Volume 11.9 fL (9.4-12.3); Monocytes Absolute Auto 0.6 X10*3/uL (0.1-1.2); Monocytes Percent Auto 9.8 % (2-11); Neutrophils Absolute Auto 3.5 x10*3/uL (2.0-8.3); Neutrophils Percent Auto 59.6 % (45-73); Platelet Count 141 X10*3/uL (160-400); Red Blood Count 4.39 X10*6/uL (4.20-5.50); Red Cell Distribution Width 15.4 % (11.0-16.0); White Blood Count 5.8 X10*3/uL (4.8-10.8)
[2025-03-17 15:40] LABS: C Reactive Protein 0.34 mg/dL (< or = 0.50)
[2025-03-17 15:45] LABS: Erythrocyte Sedimentation Rate 29 MM/HR (0-20)
[2025-03-17 15:57] LABS: Thyroid Stimulating Hormone 2.38 uIU/mL (0.32-4.0)
[2025-03-22 22:23] LABS: Immunoglobulin A 210 mg/dL (70-320); Transglutaminase IgA <1.0 U/mL
== END 2025-03-17 14:28 | disposition home or self-care (01) ==
LOC: HO.LAB 14:27
PROVIDERS: PCP Family Medicine; Visit Provider Internal Medicine
DX: R19.7 Diarrhea, unspecified (principal); R63.4 Abnormal weight loss
CPT/HCPCS: 36415; 82784; 84443; 85025; 85652; 86140; 86364

== ENCOUNTER 2025-03-19 11:19 | Outpatient (REF) | payer OTHER, SELFPAY ==
--- OUTSIDE RECORDS SUMMARY | 2025-03-20 12:05 | XMS_ITS | Encounter Summary ---
Author Organization [employer] Address [address] [facility] 7t [place] [address] Care Team Providers Care Buyers' Agent Name Role Phone Hazel Kilgore MD Primary Care Provider [phone]- [phone] Tee Shay MD Unavailable [phone] Nia Borja Unavailable [phone] Encounter Details Date Type Department Care Team (Late st Contact Info) Description 03/19/2023 Orders Only [facility] MED [facility] PEDS [address] [place] [address] Amaya Garcia LPN Social History Tobacco Use [...] 03/27/2025 10:45 AM EDT Telemedicine [facility] MEDICINE [address] [place] [address] Hazel Kilgore MD [address] [place], [place] [phone] documented as of this encounter Visit Diagnoses Not on filedocumented in this encounter Care Teams Buyers' Agent Relationship Specialty Start Date End Date Hazel Kilgore MD [address] [place] [address] [phone] PCP - General Family Medicine 11/09/18 Tee Shay MD [address] [place] [address] Nephrology 11/07/24 Nia Borja [address] [place] [address] Cardiology 11/07/24 Mary Ann Matthew MA [facility] Endocrinology 3300 [facility] Endocrinology 10/14/24 Derrick Mullen, MADIHA 175 [place] [address] Podiatry 11/07/24 documented as of this encounter
--- OUTSIDE RECORDS SUMMARY | 2025-03-20 12:05 | XMS_ITS | Encounter Summary ---
Author Organization [employer] Address [address] [facility] 7t [place] [address] Care Team Providers Care Lumber Tailer Name Role Phone Hazel Kilgore MD Primary Care Provider [phone]- [phone] Tee Shay MD Unavailable [phone] Nia Borja Unavailable Encounter Details Date Type Department Care Team (Late st Contact Info) Description 04/10/2023 Orders Only [facility] CH[facility] MED & PEDS [address] [place] [address] Amaya Garcia LPN Social History Tobacco Use [...] 03/27/2025 10:45 AM EDT Telemedicine [facility] MEDICINE [address] [place] [address] Hazel Kilgore MD [address] [place], [place] [phone] documented as of this encounter Visit Diagnoses Not on filedocumented in this encounter Care Teams Lumber Tailer Relationship Specialty Start Date End Date Hazel Kilgore MD [address] [place] [address] [phone] PCP - General Family Medicine 11/09/18 Tee Shay MD [address] [place] [address] Nephrology 11/07/24 Nia Borja [address] [place] [address] Cardiology 11/07/24 Mary Ann Matthew MA [facility] Endocrinology 3300 [facility] Endocrinology 10/14/24 Derrick Mullen, MADIHA 175 [place] [address] Podiatry 11/07/24 documented as of this encounter
--- OUTSIDE RECORDS SUMMARY | 2025-03-20 12:05 | XMS_ITS | Encounter Summary ---
Author Organization [facility] Address [address] [address] Phone Care Team Providers Care Platform Builder Name Role Phone Magui, Hazel Soriano MD Primary Care Provider U catracho Encounter Details Date Type Department Care Team (Late st Contact Info) Description 03/10/2025 Office Communication [facility] [address] [address] Tee Shay MD [address] [address] Social History Tobacco Use Types [...] Office Visit [facility] [address] [address] Amaya Edgar ARNP [address] [address] documented as of this encounter Visit Diagnoses Not on filedocumented in this encounter Care Teams Platform Builder Relationship Specialty Start Date End Date Magui, Hazel Soriano MD 230 [place] [address] PCP - General 11/19/20 documented as of this encounter
--- OUTSIDE RECORDS SUMMARY | 2025-03-20 12:05 | XMS_ITS | Encounter Summary ---
Author Organization [employer] Address [address] [facility] [address] 7[address] [place] [address] Care Team Providers Care Motor Vehicle Clerk Name Role Phone Hazel Kilgore MD Primary Care Provider [phone]- [phone] Tee Shay MD Unavailable [phone] JonhNia Unavailable [phone] Encounter Details Date Type Department Care Team (Latest Contact Info) Description 07/28/2019 Abstract [facility] Dental, Provider, DDS Social History [...] Info) Description 03/27/2025 10:45 AM EDT Telemedicine [facility] MEDICINE [address] [place] [address] Hazel Kilgore MD 230 [place] [address] documented as of this encounter Visit Diagnoses Not on filedocumented in this encounter Care Teams Motor Vehicle Clerk Relationship Specialty Start Date End Date Hazel Kilgore MD [address] [place] [address] PCP - General Family Medicine 11/09/18 Tee Shay MD [address] [place] [address] Nephrology 11/07/24 Nia Borja [address] [facility] [address] [place] [address] Cardiology 11/07/24 Mary Ann Matthew MA [facility] Endocrinology 3300 [facility] Endocrinology 10/14/24 Derrick Mullen, DPVannesa 175 [place] [address] Podiatry 11/07/24 documented as of this encounter
--- OUTSIDE RECORDS SUMMARY | 2025-03-20 12:05 | XMS_ITS | Encounter Summary ---
Author Organization [employer] Address 75 [facility] 7t [place] [address] Care Team Providers Care Bakery Team Leader Name Role Phone Hazel Kilgore MD Primary Care Provider + [phone] Tee Shay MD Unavailable [phone] Nia Borja Unavailable [phone] Encounter Details Date Type Department Care Team (Late st Contact Info) Description 10/30/2022 Orders Only [facility] [address] [place] [id number] Renata Lerner LPN Social History Tobacco Use [...] 03/27/2025 10:45 AM EDT Telemedicine [facility] MEDICINE [address] [place] [address] Hazel Kilgore MD [address] [place] [address] [phone] documented as of this encounter Visit Diagnoses Not on filedocumented in this encounter Care Teams Bakery Team Leader Relationship Specialty Start Date End Date Hazel Kilgore MD [address] [place] [address] [phone] PCP - General Family Medicine 1/1/19 Tee Shay MD [address] [place] [address] Nephrology 11/07/24 Nia Borja [address] [place] [address] Cardiology 11/07/24 Mary Ann Matthew MA [facility] Endocrinology 3300 [facility] Endocrinology 10/14/24 Derrick Mullen, MADIHA [address] [place] [address] Podiatry 11/07/24 documented as of this encounter
--- OUTSIDE RECORDS SUMMARY | 2025-03-20 12:05 | XMS_ITS | Encounter Summary ---
Author Organization [employer] Address [address] [facility] 7t [place] [address] Care Team Providers Care Pi/Senior Research Associate Name Role Phone Hazel Kilgore MD Primary Care Provider [phone]- [phone] Tee Shay MD Unavailable [phone] Nia Borja Unavailable [phone] Encounter Details Date Type Department Care Team (Late st Contact Info) Description 01/21/2023 Orders Only [facility] CH[facility] MED & PEDS [address] [place] [address] Amaya Garcia LPN Social History Tobacco Use [...] Info) Description 03/27/2025 10:45 AM EDT Telemedicine [facility] MEDICINE [address] [place] [address] Hazel Kilgore MD [address] [place], [place] [phone] documented as of this encounter Visit Diagnoses Not on filedocumented in this encounter Care Teams Pi/Senior Research Associate Relationship Specialty Start Date End Date Hazel Kilgore MD [address] [place] [phone] PCP - General Family Medicine 11/09/18 Tee Shay MD [address] [place] [address] Nephrology 11/07/24 Nia Borja [address] [place] [address] Cardiology 11/07/24 Mary Ann Matthew MA [facility] Endocrinology 3300 [facility] Endocrinology 10/14/24 Derrick Mullen, MADIHA [address] [place] [address] Podiatry 11/07/24 documented as of this encounter
--- OUTSIDE RECORDS SUMMARY | 2025-03-20 12:05 | XMS_ITS | Encounter Summary ---
Author Organization [employer] Address 75 [facility] 7t [place] [address] Care Team Providers Care Videogame Designer Name Role Phone Hazel Kilgore MD Primary Care Provider [phone]- [phone] Tee Shay MD Unavailable Nia Borja Unavailable [phone] Encounter Details Date Type Department Care Team (Late st Contact Info) Description 12/26/2022 Abstract [facility] MEDICINE [address] [place] [address] [phone] Hazel Kilgore MD [address] [place] [address] [phone] Social History Tobacco Use Types Packs/Day Years [...] Info) Description 03/27/2025 10:45 AM EDT Telemedicine [facility] [address] [place] [address] [phone] Hazel Kilgore MD [address] [place] [phone] documented as of this encounter Procedures Procedure Name Priority Date/Time Associated Diagnosis Comments MAMMOGRAPHY Routine 09/18/2022 COLONOSCOPY Routine 06/19/2020 documented in this encounter Results * Mammography (09/18/2022) HM Mammogram BIRADS 1 Anatomical Region Laterality Modality Other Historical Provider HEALTH MAINTENANCE Final Result * Hm Colonoscopy (06/19/2020) Colonoscopy normal Historical Provider HEALTH MAINTENANCE Final Result documented in this encounter Visit Diagnoses Not on filedocumented in this encounter Care Teams Videogame Designer Relationship Specialty Start Date End Date Hazel Kilgore MD 230 [place] [address] PCP - General Family Medicine 11/09/18 Tee Shay MD [address] [place] [address] Nephrology 11/07/24 Nia Borja 3300 [facility] [address] [place] [address] Cardiology 11/07/24 Mary Ann Matthew MA [facility] Endocrinology 3300 [facility] Endocrinology 10/14/24 Derrick Mullen, DPM 175 [place] [address] Podiatry 11/07/24 documented as of this encounter
--- OUTSIDE RECORDS SUMMARY | 2025-03-20 12:06 | XMS_ITS | Clinical Summary ---
Author Organization [employer] Address [address] [facility] [address] [place] [address] Care Team Providers Care Mumps Developer Name Role Phone Hazel Kilgore MD Primary Care Provider [phone] Tee Shay MD Unavailable [phone] Nia Borja Unavailable [phone] Allergies No known active allergies Medications TRUEplus Lancets 33G miscIndications:T ype 2 diabetes mellitus with other specified complication, with long-term current use of insulin ([facility]) TEST BLOOD SUGAR SIX TIMES DAILY 100 each 11 024 Active Sure Comfort Pen Nuevo 31G X 5 MM miscIndications:T ype 2 diabetes mellitus with other specified complication, with long-term current use of insulin ([facility]) USE DIRECTED FOUR TIMES DAILY 100 each 11 Active aspirin (Aspirin Low Dose) 81 MG EC tabletIndications :Atrial fibrillation with RVR ([facility]) Per cardiology Active dapagliflozin (Farxiga) 10 MGIndications:Typ e 2 diabetes mellitus with stage 3a chronic kidney disease, unspecified whether long term care phlebotomist insulin use ([facility]) Take 1 tablet by mouth. Active doxazosin (Cardura) 4 MG tabletIndications :Hypertension, unspecified type Take 1.5 tablets by mouth at bedtime. Active insulin glargine (Lantus SoloStar) 100 UNIT/ML penIndications:Ty pe 2 diabetes mellitus with stage 3a chronic kidney disease, unspecified whether long term care phlebotomist insulin use ([facility]) Inject 30 units subcutaneously daily 15 mL 3 Active insulin aspart (NovoLOG FLEXPEN) 100 UNIT/ML penIndications:Ty pe 2 diabetes mellitus with stage 3a chronic kidney disease, unspecified whether half-way insulin use (CMS/HCC) Inject 6-7 units tid before meals sc 15 mL Active dulaglutide (Trulicity) 3 MG/0.5ML solution pen-injectorIndic ations:Type 2 diabetes mellitus with stage 3a chronic kidney disease, unspecified whether long term care phlebotomist insulin use ([facility]/HCC) Inject 3 mg under the skin 1 [...] tabletIndications :Hypertension, unspecified type,Atrial fibrillation with RVR ([facility]/HCC) Take 1 tablet (25 mg) by mouth Once per day. 90 tablet Active LORazepam (Ativan) 0.5 MG tabletIndications :Tremor Take by mouth. From neruology Active gabapentin (Neurontin) 600 MG tabletIndications :Neuropathy Take by mouth. Per specialist tid Active FREESTYLE LITE test stripIndications: Type 2 diabetes mellitus with stage 3a chronic kidney disease, unspecified whether long term care phlebotomist insulin use ([facility]) Use bid prn 150 strip Active furosemide (Lasix) 40 MG tabletIndications :Hypertension, unspecified type Take by mouth. Per nephrology Active fluticasone (Flovent HFA) 110 MCG/ACT inhalerIndication s:Type 2 diabetes mellitus with stage 3a chronic kidney disease, unspecified whether long term care phlebotomist insulin use (CMS/HCC),Chronic bronchitis, unspecified chronic bronchitis type (CMS/HCC) Rinse mouth with water after use to reduce aftertaste and incidence of candidiasis. Do not swallow. 48 g Active Eliquis 5 MG tabletIndications :Atrial fibrillation with RVR (CMS/HCC) Take 1 tablet (5 mg) by mouth 2 times daily. 60 tablet 11 12/03/2 024 Active prednisoLONE acetate (Pred-Forte) 1 % [...] complication, with long-term current use of insulin ([facility]) TAKE 1 TABLET BY MOUTH AT BEDTIME [...] EVERY MORNING 90 tablet 1 025 Active erythromycin (Romycin) 5 MG/GM ophthalmic ointmentIndicatio ns:Conjunctival Infection Apply Amount per Dose: 0.25 inch (~0.5 cm) per dose. TID for 1 week. 15 g 025 Active rosuvastatin (Crestor) 20 MG tabletIndications :Type 2 diabetes mellitus with stage 3b chronic kidney disease, with long-term current use of insulin ([facility]),Hyperli pidemia, unspecified hyperlipidemia type TAKE 1 TABLET [...] diarrhea. 30 tablet 2 025 2024 Active Ascorbic Acid (vitamin C) 500 MG tabletIndications :Iron deficiency TAKE 1 TABLET BY MOUTH TWICE DAILY IN THE MORNING AND AT BEDTIME 60 tablet 11 025 Active Dulaglutide (Trulicity) 1.5 MG/0.5ML solution auto-injectorIndi cations:Type 2 diabetes mellitus with stage 3a chronic kidney disease, unspecified whether half-way insulin use ([facility]) Inject under the skin. Active Ascorbic Acid (vitamin C) 500 MG tabletIndications :Iron deficiency TAKE 1 TABLET BY MOUTH TWICE DAILY IN THE MORNING AND AT BEDTIME 60 tablet 11 024 2024 Discontinued amLODIPine (Norvasc) 5 MG tabletIndications :Primary hypertension Take 5 mg by mouth 2 times daily. 017 2024 Active Problems Patient Care Coordination No te Formatting of this note migh t be different from the original. [facility] [place] [employer] Bed Worker: [facility] member services number [phone], provider services line, , option 4 21 Dealer Agency: [employer] [facility] Problem Noted Date Diagnosed Date Diarrhea [...] She will be set up with a campus monitor to evaluate for atrial fibrillation burden. -Echocardiogram with Evita Sevilla MD : The left ventricle is normal in size. Ejection fraction is 55-60%. The basal inferior wall is akinetic. Grade II diastolic dysfunction.The left atrium is mildly dilated.The right ventricle is normal in size. Function is preserved.The right atrium is normal in size. -seen by cardiology [facility] Cardiology Attending Physician: Jonh TORREZ, Anwont87/2023 -continue Aspirin 81 MG -continue Metoprolol Succinate [...] She will be set up with a campus monitor to evaluate for atrial fibrillation burden. -Echocardiogram with Evita Sevilla MD : The left ventricle is normal in size. Ejection fraction is 55-60%. The basal inferior wall is akinetic. Grade II diastolic dysfunction.The left atrium is mildly dilated.The right ventricle is normal in size. Function is preserved.The right atrium is normal in size. -seen by cardiology [facility] Cardiology Attending Physician: Rigo Borja NP -continue [...] She will be set up with a campus monitor to evaluate for atrial fibrillation burden. Other specified health status 08/05/2023 Overview (11/21/2024): -next physical exam due after 11/21/2025 -eye care facilitated by Dr. Stubbs at [facility], seen 06/2024 -d[facility] care proxy on file 12/03/23 Assessment & Plan (11/21/2024 12:46 PM EST): -next physical exam due after 11/21/2025 -eye care facilitated by Dr. Stubbs at [facility], seen 06/2024 -dental home is [facility] [facility] care proxy on file 12/03/23 Assessment & Plan (07/01/2024 11:04 AM EDT): -next physical exam due after 08/12/2024 -eye care facilitated by Dr. Stubbs seen 11/2023 -dental home is [facility] [facility] care proxy on file 12/03/23 Assessment & Plan (08/12/2023 1:17 PM EDT): -next physical exam due after 08/12/2024 -eye care facilitated by Dr. Stubbs -dental home is [facility] History of endometrial cancer 12/19/2021 Overview (08/05/2023): [...] residual on most recent CT. Follow up [facility] Assessment & Plan (07/01/2024 11:04 AM [...] residual on most recent CT. Follow up [facility] Assessment & Plan (08/05/2023 10:03 AM [...] residual on most recent CT. Follow up [facility] Urinary incontinence 12/19/2021 Anemia of chronic [...] to get her a scooter. Her case repairer is Cris Ibarra , phone #: [phone]. Was last seen on 04/2019 by [employer] [...] to get her a scooter. Her case repairer is Cris Ibarra , phone #: [phone]. Was last seen on 04/2019 by [employer] [...] afib - She is no longer on JULINAO or ARB due to persistent hyperkalemia -Disconitnue [...] (01/10/2025): Diabetes is controlled. Followed at Endocrinology [facility] with HENOK King note from 10/13/24 [...] EST): Diabetes is controlled. Followed at Endocrinology [facility] with HENOK King note from 10/13/24 reviewed Lab Results Component Value Date HGBA1C 8.5 (A) 11/21/2024 HGBA1C 7.8 (H) 07/21/2024 HGBA1C 8.5 (A) 07/01/2024 - Lab Results Component Value Date CREATININE 1.07 08/11/2024 EGFR 49 08/11/2024 MICROALBCREU 61.4 (H) 07/21/2024 MICROALBCREU 13.3 08/13/2023 LDLCHOLCAL 65 07/21/2024 -Juliano/Arb: none due to hx hyperkalemia -Statin therapy: rosuvastatin 20mg -Diabetic eye exam: with Dr. Stubbs [facility] 06/2024 -Diabetic foot exam: [...] EST): Diabetes is controlled. Followed at Endocrinology [facility] Lab Results Component Value Date HGBA1C [...] at home. PAP smear: UTD. Fu'd by PRACTICE ADMINISTRATOR due to hx malignancy Mammogram:UTD, no need [...] Encounters Date Type Department Care Team Description 03/17/2025 Orders Only [facility] MEDICINE [address] [place] [phone] Hazel Kilgore MD Type 2 diabetes mellitus with other specified complication, with long-term current use of insulin ([facility]) (Primary Dx); Type 2 diabetes mellitus with stage 3a chronic kidney disease, unspecified whether half-way insulin use ([facility]) 03/10/2025 Refill [facility] MED & PEDS [address] [place] [address] Hazel Kilgore MD Iron deficiency 02/28/[address] [address] Hazel Kilgore MD Call Back Request 02/24/[address] [address] Hazel Kilgore MD Returning call 02/24/2025 Orders Only [facility] MEDICINE [address] [place] [phone] Hazel Kilgore MD Diarrhea, unspecified type (Primary Dx) 02/15/[address] [address] Hazel Kilgore MD Lab order Question 02/15/2025 Refill [facility] [address] [place] [address] Hazel Kilgore MD Iron deficiency 02/14/[address] [address] Hazel Kilgore MD Referral; Lab Orders 02/14/2025 Telephone [facility] MEDICINE [address] [place] [phone] Hazel Kilgore MD 02/14/2025 Orders Only [facility] MEDICINE [address] [place] [phone] Hazel Kilgore MD Diarrhea, unspecified type (Primary Dx) 02/02/2025 Refill [facility] MED & PEDS [address] [place] [address] Hazel Kilgore MD Type 2 diabetes mellitus with stage 3b chronic kidney disease, with long-term current use of insulin ([facility]); Hyperlipidemia, unspecified hyperlipidemia type 01/20/2025 11:30 AM EDT Telemedicine [facility] MEDICINE [address] [place] [phone] Hazel Kilgore MD Diarrhea, unspecified type (Primary Dx) 01/20/2025 Travel 01/20/2025 Telephone [facility] MEDICINE [address] [place] [phone] Hazel Kilgore MD Lab Orders 01/19/2025 Refill [facility] MED & PEDS [address] [place] [address] Hazel Kilgore MD Type 2 diabetes mellitus with stage 3a chronic kidney disease, unspecified whether half-way insulin use ([facility]) 01/13/2025 Refill [facility] MED & PEDS [address] [place] [address] Hazel Kilgore MD Iron deficiency 01/10/2025 11:00 AM EST Office Visit [facility] WALK-IN CENTER [address] [place] [phone] Hazel Kilgore MD Diarrhea, unspecified type (Primary Dx); Acute conjunctivitis of right eye, unspecified acute conjunctivitis type; Primary hypertension; Type 2 diabetes mellitus with other specified complication, with long-term current use of insulin (CMS/[facility]) 01/10/2025 Travel 01/08/2025 Refill [facility] MED & PEDS [address] [place] [address] Hazel Kilgore MD Primary hypertension from Last 3 Months Immunizations Name Administration [...] the past 12 months, has t he [employer], gas, oil or water company threatened to [...] Info) Description 03/27/2025 10:45 AM EDT Telemedicine [facility] MEDICINE [address], [place] [phone] Hazel Kilgore MD [address] [place] [address] Health Maintenance Due Date Last Done Comments SDOH Screening 02/16/2025 02/17/2024 Diabetes: Hemoglobin A1C 04/12/2025 03 025, 11/21/2024, 07/21/2024, Additional history exists Alcohol/Substance [...] 025 11:05 AM EST Diarrhea, unspecified type DIABETES EYE EXAM Routine 04/22/2024 3:23 PM EDT from Last 3 Months or Most Recently Relevant to Health Maintenance Results * CDiff Gene PCR (02/22/2025 1:55 PM EDT) Pathologist [facility] [place] CDiff Gene PCR NEGATIVE Negative [facility] Comment:If C. difficile stro ngly suspected despite one negativetest, a second test may be sent vs. empiric treatment forC. difficile infection. 02/22/2025 1:55 PM EDT 02/22/2025 4:20 PM EDT Hazel Kilgore MD LAB BODY FLUIDS AND STOOLS ORDERABLES Final Result [facility] [address] [place] [phone] * Stool - Gastrointestinal panel (01/12/2025 10:30 AM EST) Pathologist [facility] [place] Campylobacter Not Detected Not Detect. [facility] Plesiomonas shigelloides Not Detected Not Detect. [facility] Salmonella Not Detected Not Detect. [facility] Vibrio Not Detected Not Detect. [facility] Vibrio cholerae Not Detected Not Detect. [facility] YERSINIA ENTEROCOLITICA Not Detected Not Detect. [facility] Enteroaggregative E. coli (EAEC) Not Detected Not Detect. [facility] Enteropathogenic E. coli (EPEC) Not Detected Not Detect. [facility] Enterotoxigenic E. coli (ETEC) lt/st Not Detected Not Detect. [facility] Shiga-like toxin-producing E. coli (STEC) stx1/stx2 Not Detected Not Detect. [facility] E coli O157 Not applicable Not Detect. [facility] Comment:E. coli containing t he O157 antigen are a subset ofShiga-like toxin- producing E. coli (STEC). Shigella/Enteroinvasive E. coli (EIEC) Not Detected Not Detect. [facility] Cryptosporidium Not Detected Not Detect. [facility] Cyclospora cayetanensis Not Detected Not Detect. [facility] Entamoeba histolytica Not Detected Not Detect. [facility] Giardia lamblia Not Detected Not Detect. [facility] Adenovirus F 40/41 Not Detected Not Detect. [facility] Astrovirus Not Detected Not Detect. [facility] Norovirus GI/GII Not Detected Not Detect. [facility] Rotavirus A Not Detected Not Detect. [facility] Sapovirus Not Detected Not Detect. [facility] Comment: All results must be [...] assay is performed by Multiplexed PCR, utilizing [employer] Array. Stool Rectal contents / Unknown 01/12/2025 10:30 AM EST 01/12/2025 1:57 PM EST us Hazel Kilgore MD LAB MICROBIOLOGY - GENERAL ORDERABLES Final Result [facility] [address] [place] [phone] * TSH W/Reflex to FT4 (01/10/2025 11:39 AM EST) TSH reflex Free T4 1.88 0.32 - 4.0 uIU/mL [facility] Blood Venous blood specimen / Unknown 01/10/2025 11:39 AM EST 01/10/2025 1:12 PM EST Hazel Kilgore MD LAB BLOOD ORDERABLES Final Result Performing Organization Address [facility] Co de Phone Number [facility] [address] [place] [phone] * Albumin, Random Urine W/Creatinine (01/10/2025 11:39 AM EST) Pathologist [facility] [place] Creatinine, Urine 85.67 mg/dL [facility] Microalbumin Urine 12.0 mg/L [facility] Microalbum Creatinine Ratio Ur 14.0 <30 ug/mg cr [facility] Comment:Albumin/Creatinine R atio Reference Ranges: Normal: < 30 ug/mg creatinine Microalbuminuria: 30 - 300 ug/mg creatinineClinical Albuminuria: > 300 ug/mg creatinine Urine 01/10/2025 11:3 9 AM EST 01/10/2025 1:12 PM EST Hazel Kilgore MD LAB URINE ORDERABLES Final Result Performing Organization Address [facility]/ZIP Co de Phone Number [facility] [address] [place] [phone] * (ABNORMAL) CBC auto differential (01/10/2025 11:39 AM EST) Pathologist [facility] [place] White Blood Count 6.8 4.8 - 10.8 X10*3/uL [facility] Red Blood Count 5.10 4.20 - 5.50 X10*6/uL [facility] Hemoglobin 12.1 12.0 - 16.0 g/dl [facility] Hematocrit 41.3 37.0 - 47.0 % [facility] Mean Corpuscular Volume 81.0 80.0 - 98.0 fL [facility] Mean Corpuscular Hemoglobin 23.7(L) 27.0 - 33.0 pg [facility] Mean Corpuscular HGB Conc 29.3(L) 31.0 - 35.0 g/dl [facility] Red Cell Distribution Width 16.4(H) 11.0 - 16.0 % [facility] Platelet Count 163 160 - 400 X10*3/uL [facility] Mean Platelet Volume 12.2 9.4 - 12.3 fL [facility] Neutrophils Percent Auto 67.5 45 - 73 % [facility] Imm Gran Pct Auto 0.3 0.0 - 0.4 % [facility] Lymphocytes Percent Auto 21.6 20 - 40 % [facility] Monocytes Percent Auto 8.9 2 - 11 % [facility] Eosinophils Percent Auto 1.6 0 - 4 % [facility] Basophils Percent Auto 0.1 0 - 2 % [facility] NRBC Pct Auto 0.0 0.0 - 0.2 /100WBC [facility] Neutrophils Absolute Auto 4.6 2.0 - 8.3 x10*3/uL [facility] Imm Gran Abs Auto 0.02 0.00 - 0.03 X10*3/uL [facility] Lymphocytes Absolute Auto 1.5 1.2 - 4.9 X10*3/uL [facility] Monocytes Absolute Auto 0.6 0.1 - 1.2 X10*3/uL [facility] Eosinophils Absolute Auto 0.1 0.0 - 0.4 X10*3/uL [facility] Basophils Absolute Auto 0.0 0.0 - 0.2 X10*3/uL [facility] NRBC Abs Auto 0.000 0.0 - 0.012 X10*3/uL [facility] Blood Venous blood specimen / Unknown 01/10/2025 11:39 AM EST 01/10/2025 1:11 PM EST Hazel Kilgore MD LAB BLOOD ORDERABLES Final Result [facility] [address] [place] [phone] * (ABNORMAL) Hemoglobin A1c (01/10/2025 11:39 AM EST) Hemoglobin A1c 7.6(H) <6.0 % [facility] Comment:Hemoglobin A1C Refer ence Range Adults: 4.8 - 6.0 % Non diabetic: < 6.0 % Goal: < 7.0 %Additional Action Suggested: > 8.0 %Note: Hemoglobin A1c results are invalid for patients with abnormal amounts of HbF. Blood transfusions may impact the HbA1c concentration in the patient sample. Estimated Average Glucose 171 mg/dL [facility] Comment:eAG = Estimated ave rage glucose which is %A1C expressed asaverage glucose, using the formula of the I8P-CoivyelLzkuyns Glucose study (ADAG), Diabetes Care, Vol.31,#8,Jun. 2007 Blood Venous blood specimen / Unknown 01/10/2025 11:39 AM EST 01/10/2025 1:12 PM EST Hazel Kilgore MD LAB BLOOD ORDERABLES Final Result [facility] [address] [place] [phone] * (ABNORMAL) Hepatic Function Panel (01/10/2025 11:39 AM EST) Bilirubin, Total 0.4 0.0 - 1.0 mg/dL [facility] Bilirubin, Direct 0.2 0.0 - 0.5 mg/dL [facility] Aspartate Amino Transferase 33(H) 5 - 31 U/L [facility] Alanine Aminotransferase 43(H) 0 - 31 U/L [facility] Total Protein 7.3 6.5 - 8.0 g/dL [facility] Albumin Level 3.7 3.5 - 5.0 g/dL [facility] Alkaline Phosphatase 66 39 - 117 U/L [facility] Blood Venous blood specimen / Unknown 01/10/2025 11:39 AM EST 01/10/2025 1:12 PM EST Hazel Kilgore MD LAB BLOOD ORDERABLES Final Result Performing Organization Address City/[facility]/ZIP Co de Phone Number [facility] [address] [place] [phone] * Lipid Panel, Standard (01/10/2025 11:39 AM EST) Triglycerides 81 <150 mg/dL [facility] Comment:Desirable Triglyceri de: less than 150 mg/dLBorderline High Triglyceride 150-199 mg/dLHigh Triglyceride: 200-499 mg/dLVery High Triglyceride: greater than or equal to 5OO mg/dL Cholesterol 133 <200 mg/dL [facility] Comment:Desirable Cholestero l: less than 200 mg/dLBorderline High Cholesterol: 200-239 mg/dLHigh Cholesterol: greater than 239 mg/dL LDL Cholesterol Calculated 70 <100 mg/dL [facility] Comment:Desirable LDL: less than 100 mg/dLNear Optimal/Above Optimal LDL: 110- 129 mg/dLBorderline High LDL: 130-159 mg/dLHigh LDL: 160-189 mg/dLVery High LDL: greater than or equal to 190 mg/dL HDL Cholesterol 47 >40 mg/dL [facility] Comment:Desirable HDL: great er than 40 mg/dL Note: This HDL assay may give artificially low results in patients with liver disease. Blood Venous blood specimen / Unknown 01/10/2025 11:39 AM EST 01/10/2025 1:12 PM EST Hazel Kilgore MD LAB BLOOD ORDERABLES Final Result Performing Organization Address City/[facility]/ZIP Co de Phone Number [facility] [address] [place] [phone] * (ABNORMAL) Basic Metabolic Panel (01/10/2025 11:39 AM EST) Pathologist [facility] [place] Sodium 142 135 - 145 mmol/L [facility] Potassium 4.7 3.3 - 5.1 mmol/L [facility] Chloride 104 96 - 108 mmol/L [facility] Carbon Dioxide 32(H) 22 - 29 mmol/L [facility] Anion Gap 11(L) 12 - 20 [facility] Urea Nitrogen (BUN) 26(H) 9 - 16 mg/dL [facility] Creatinine, Serum 1.18 0.5 - 1.4 mg/dL [facility] Estimated Glomerular Filt Rate 44 [facility] Comment:Chronic Kidney Disea se: Estimated GFR < 60 mL/min/[id number] Kidney Disease: Estimated GFR < 15 mL/min/1.73m2 Glucose 186(H) 60 - 115 mg/dL [facility] Calcium 9.5 8.4 - 10.2 mg/dL [facility] Blood Venous blood specimen / Unknown 01/10/2025 11:39 AM EST 01/10/2025 1:12 PM EST Hazel Kilgore MD LAB BLOOD ORDERABLES Final Result Performing Organization Address City/State/[facility] Co de Phone Number [facility] [address] [place] [phone] * POCT Influenza B manually resulted (01/10/2025 11:16 AM EST) [facility] Rapid Influenza B Ag Negative Negative, Indeterminate QC Media Lot # [id number] Lot# Expiration Date Swab 01/10/2025 11:1 6 AM EST Hazel Kilgore MD POINT OF CARE TEST ENTER/E DIT ORDERABLES Final Result * POCT Influenza A manually resulted (01/10/2025 11:16 AM EST) [facility] Rapid Influenza A Ag Negative Negative, Indeterminate QC Media Lot # [id number] Lot# Expiration Date 10,826 Swab Nasopharyngeal structure / Unknown 01/10/2025 11:16 AM EST Hazel Kilgore MD POINT OF CARE TEST ENTER/E DIT ORDERABLES Final Result * POCT Rapid COVID Ag (01/10/2025 11:05 AM EST) Rapid COVID Ag Negative QC Media Lot # [id number] Lot# Expiration Date 42 Swab 01/10/2025 11:0 5 AM EST Hazel Kilgore MD POINT OF CARE TEST ENTER/E DIT ORDERABLES Final Result * Hm Diabetes Eye Exam (04/22/2024 3:23 PM EDT) Eye Exam Normal Normal Comment:follow up one year Historical Provider HEALTH MAINTENANCE Final Result from Last 3 Months or Most Recently Relevant to Health Maintenance Insurance [facility] [employer] (O D-SNP) HENOK MICHELLE [id number] Advance Directives Documents on File Type Date Recorded 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 Advance Directives and Livin g Will 12/15/2023 Health Care Proxy Care Teams Mumps Developer Relationship Specialty Start Date End Date Hazel Kilgore MD [address] [place] [address] PCP - General Family Medicine 11/09/18 Tee Shay MD [address] [facility] [address] [place] [address] Nephrology 11/07/24 Nia Borja [address] [facility] [address] [place] [address] Cardiology 11/07/24 Mary Ann Matthew MA [facility] Endocrinology 3300 [facility] Endocrinology 10/14/24 Derrick Mullen, DPM 175 [place] [address] Podiatry 11/07/24
--- OUTSIDE RECORDS SUMMARY | 2025-03-20 12:06 | XMS_ITS | Patient Health Record ---
Author Organization [facility] Address [address] [place] [address] Care Team Providers Care Electrician Yard Name Role Phone Hazel Kilgore MD Primary Care Provider Diana Aaron Rodriguez Unavailable [phone] Allergies No Known Allergies Results Component Value Reference Range Notes Complete Blood Count Auto Di ff (Not yet reviewed by provider) Interpretation: Performing Lab:[facility], [address] [place] [id number] Notes/Report: White Blood Count 5.8 4.8-10.8 X10*3/uL Red Blood Count 4.39 4.20-5.50 X10*6/uL Hemoglobin 10.5 12.0-16.0 g/dl Hematocrit 35.6 37.0-47.0 % Mean Corpuscular Volume 81.1 80.0-98.0 fL Mean Corpuscular Hemoglobin 23.9 27.0-33.0 pg Mean Corpuscular HGB Conc 29.5 31.0-35.0 g/dl Red Cell Distribution Width 15.4 11.0-16.0 % Platelet Count 141 160-400 X10*3/uL Mean Platelet Volume 11.9 9.4-12.3 fL Neutrophils Percent Auto 59.6 45-73 % Imm Gran Pct Auto 0.3 0.0-0.4 % Lymphocytes Percent Auto 28.0 20-40 % Monocytes Percent Auto 9.8 2-11 % Eosinophils Percent Auto 2.1 0-4 % Basophils Percent Auto 0.2 0-2 % NRBC Pct Auto 0.0 0.0-0.2 /100WBC Neutrophils Absolute Auto 3.5 2.0-8.3 x10*3/u L Imm Gran Abs Auto 0.02 0.00-0.03 X10*3/uL Lymphocytes Absolute Auto 1.6 1.2-4.9 X10*3/u L Monocytes Absolute Auto 0.6 0.1-1.2 X10*3/uL Eosinophils Absolute Auto 0.1 0.0-0.4 X10*3/u L Basophils Absolute Auto 0.0 0.0-0.2 X10*3/uL NRBC Abs Auto 0.000 0.0-0.012 X10*3/uL Erythrocyte Sedimentation Ra te (Not yet reviewed by provider) Interpretation: Performing Lab:[address] [id number] Notes/Report: Erythrocyte Sedimentation Rate 29 0-20 MM/HR Patients with polycythemia and many hemoglobin abnormalities may have depressed sed rates whereas patients with anemia may have elevated sed rates. C Reactive Protein (Not yet reviewed by provider) Interpretation: Performing Lab:[address] [id number] Notes/Report: C Reactive Protein 0.34 < or = 0.50 mg/dL Thyroid Stimulating Hormone (Not yet reviewed by provider) Interpretation: Performing Lab:[address] [address] Notes/Report: Thyroid Stimulating Hormone 2.38 0.32-4.0 uIU/ mL TSH 3rd Generation ([facility]) Reason For Referral No Information Medications Medication [...] Problem Status W/U Status Risk Notes Problem 004756598 Encounter for screening for malignant neoplasm of colon (Z12.11) Active confirmed Problem 036997488 Long-term use of aspirin therapy (Z79.82) Active confirmed Problem 26896170 Constipation, unspecified constipation type (K59.00) Active confirmed Vital Signs Temperature 97.3 degrees Fahrenheit 03/17/2025 Blood pressure diastolic 01 mm Hg 03/17/2025 Height 62 in 03/17/2025 Blood pressure systolic 001 mm Hg 03/17/2025 Weight 162 lbs 03/17/2025 BMI 29.63 kg/m2 03/17/2025 Encounters Encounter Location Date Provider Diagnosis [facility] [address] [place] [address] 03/17/2025 Aaron Almazan Diarrhea R19.7 and Weight loss R63.4 [facility] [address] [place] [address] 02/28/2025 Aaron Almazan Assessments Encounter Date Diagnosis (ICD Code) Assessment Notes Treatment Notes Treatment Clinical Notes Section Notes 03/17/2025 Diarrhea (ICD-10 - R19.7) Continue to use the Imodium for the diarhea. We will see how you do on the lower dose of Trulicity. If uyou continue with diarhea and weight loss we may need to do a colonoscopy. While Inna has been having ongoing issues with diarrhea and weight loss, she overall sounds and appears well from a clinical standpoint. She is not feeling particularly ill and there have been no worrisome features of her symptoms such as bleeding or anorexia. Her multiple colonoscopies that have been negative over the past number of years is reassuring. Her recent normal laboratories including a CBC are reassuring as well. Negative duodenal biopsies for celiac disease in 2020 but certainly tend to exclude that as a possibility at this time. Given the fact that she has been on Trulicity since last year that would certainly potentially account for her weight loss and perhaps some GI symptoms such as she is having. I doubt we are dealing with anything such as inflammatory bowel disease. Since she is responding to loperamide by her description I would be inclined to have her continue that symptomatic treatment for the time being. Given her age, comorbidities, and negative GI procedures in the past, I am inclined to hold off on putting her through repeat colonoscopy and upper endoscopy at this time. We did discuss the possibility of having her undergoing imaging such as a CT scan of the abdomen but given no other symptoms such as abdominal pain I think the yield on that would be low, likely since her Trulicity may be the factor contributing to her weight loss and GI symptoms. At this point since the Trulicity was just decreased yesterday by her cotton presser I think be worthwhile to observe things on the lower dose. I am going to check some further stool specimens and laboratories as outlined below, including laboratories for celiac disease. In the meantime she will continue her loperamide for symptomatic relief. I am going to see her back in the office in the next 2 to 3 months but did advise her to definitely call me in the interim if the diarrhea and/or weight loss remain problematic. If she is continuing to have significant problems prior to the next office visit we could always schedule a colonoscopy over the phone. If she does have a colonoscopy for the ongoing diarrhea I would plan to obtain biopsies to rule out microscopic colitis even if the colon appears normal. Inna was comfortable with this plan. Thank you again for allowing me to participate in Inna's care. I shall continue to keep you advised of her progress. 03/17/2025 Weight loss (ICD-10 - R63.4) While Inna has been having ongoing issues with diarrhea and weight loss, she overall sounds and appears well from a clinical standpoint. She is not feeling particularly ill and there have been no worrisome features of her symptoms such as bleeding or anorexia. Her multiple colonoscopies that have been negative over the past number of years is reassuring. Her recent normal laboratories including a CBC are reassuring as well. Negative duodenal biopsies for celiac disease in 2019 but certainly tend to exclude that as a possibility at this time. Given the fact that she has been on Trulicity since last year that would certainly potentially account for her weight loss and perhaps some GI symptoms such as she is having. I doubt we are dealing with anything such as inflammatory bowel disease. Since she is responding to loperamide by her description I would be inclined to have her continue that symptomatic treatment for the time being. Given her age, comorbidities, and negative GI procedures in the past, I am inclined to hold off on putting her through repeat colonoscopy and upper endoscopy at this time. We did discuss the possibility of having her undergoing imaging such as a CT scan of the abdomen but given no other symptoms such as abdominal pain I think the yield on that would be low, likely since her Trulicity may be the factor contributing to her weight loss and GI symptoms. At this point since the Trulicity was just decreased yesterday by her cotton presser I think be worthwhile to observe things on the lower dose. I am going to check some further stool specimens and laboratories as outlined below, including laboratories for celiac disease. In the meantime she will continue her loperamide for symptomatic relief. I am going to see her back in the office in the next 2 to 3 months but did advise her to definitely call me in the interim if the diarrhea and/or weight loss remain problematic. If she is continuing to have significant problems prior to the next office visit we could always schedule a colonoscopy over the phone. If she does have a colonoscopy for the ongoing diarrhea I would plan to obtain biopsies to rule out microscopic colitis even if the colon appears normal. Inna was comfortable with this plan. Thank you again for allowing me to participate in Inna's care. I shall continue to keep you advised of her progress. Plan Of Treatment Pending Test Test Name Order Date CRP 03/17/2025 CBC w DIFF 03/17/2025 SED RATE (ESR) 03/17/2025 TRYPSIN,STOOL 03/17/2025 Complete Blood Count Auto Diff Erythrocyte Sedimentation Rate C Reactive Protein 03/17/2025 Thyroid Stimulating Hormone 03/17/2025 TSH reflex Free T4 03/17/2025 Celiac Panel 10 03/17/2025 Pancreatic Elastase-1 03/17/2025 Fecal Fat Qualitative 03/17/2025 Calprotectin, Fecal 03/17/2025 Celiac Disease Panel 03/17/2025 Future Test Test Name Order Date COLONOSCOPY 09/14/2018 Next Appt Details Provider Name:Aaron Vannesa Almazan , 07/06/2025 10:40:00 AM, [address] [place] [address], [address], [place], [address], Insurance Providers Payer Name Payer Address Payer Phone Subscriber Number Group Number Insured Name Patient Relationship to Insured Coverage Start Date Coverage End Date [facility] [address] [place] [address] [id number] INNA SOLANO Self - patient is the insured Medical (General) History Medical History History ICD Code Stage 3 kidney disease--Dr. Shay IDDM Hx of uterine cancer--2015--surgery and chemo at [facility] Back pain--scheduled for a pain stimulat or insertion for 10/2018 Negative colonoscopy in 2006 EGD in 2006--- questionable duodenal biopsies in regard to possible celiac disease, but celiac disease serologies were negative and she was never started on a gluten-free diet Neg SB capsule tudy in 2006--for eval of Iron def anemia HTN Hyperlipidemai urinary incontinence Denies [place] or CVA She had a negative screening colonoscopy in October 2018 Negative upper endoscopy and colonoscopy in [address] Stark. Duodenal biopsies at that time were negative for celiac disease. Surgical History Surgery Date(Month/Year) [facility] Back pain stimulator being placed in 2017 NICOLAS--uterine cancer 2016
--- OUTSIDE RECORDS SUMMARY | 2025-03-20 12:06 | XMS_ITS | Encounter Summary ---
Author Organization [employer] Address [address] [place] [address] Care Team Providers Care Senior Director Of Strategy Name Role Phone Hazel Kilgore MD Primary Care Provider [phone] Tee Shay MD Unavailable [phone] Nia Borja Unavailable [phone] Encounter Details Date Type Department Care Team (Late st Contact Info) Description 08/20/2023 Orders Only [facility] MEDICINE [address] [place], [place] [phone] Hazel Kilgore MD [address] [place], [place] [phone] Social History Tobacco Use Types Packs/Day Years [...] Info) Description 03/27/2025 10:45 AM EDT Telemedicine [facility] [address] [place] [address] Hazel Kilgore MD [address] [place] [address] documented as of this encounter Visit Diagnoses Not on filedocumented in this encounter Additional Health Concerns Assessment Noted Time PHQ-9 Depression Total Score: 0 07/03/20 23 9:07 AM EDT documented as of this encounter Care Teams Senior Director Of Strategy Relationship Specialty Start Date End Date Hazel Kilgore MD [address] [place] [address] PCP - General Family Medicine 11/09/18 Tee Shay MD [address] [place] [address] Nephrology 11/07/24 Nia Borja 33[address] [facility] [address] [place] [address] Cardiology 11/07/24 Mary Ann Matthew MA [facility] Endocrinology 3300 [facility] Endocrinology 10/14/24 Derrick Mullen, DPM 175 [place] [address] Podiatry 11/07/24 documented as of this encounter
--- OUTSIDE RECORDS SUMMARY | 2025-03-20 12:06 | XMS_ITS | Encounter Summary ---
Author Organization [employer] Address [address] [place] [address] Care Team Providers Care Tag Clerk Name Role Phone Hazel Kilgore MD Primary Care Provider [phone] Tee Shay MD Unavailable [phone] Nia Borja Unavailable [phone] Reason for Visit * Reason Onset Date Comments Referral 09/04/2023 Encounter Details Date Type Department Care Team (Late st Contact Info) Description 09/04/2023 Telephone [facility] MEDICINE [address] [place], [place] [phone] Hazel Kilgore MD [address] [place], [place] [phone] Referral Social History Tobacco Use Types Packs/Day [...] Podiatry specialist. [facility] Address [address] [place] [address] documented in this encounter Plan of Treatment Upcoming Encounters Date Type Department Care Team (Late st Contact Info) Description 03/27/2025 10:45 AM EDT Telemedicine [facility] MEDICINE [address] [place] [address] Hazel Kilgore MD [address] [place] [address] documented as of this encounter Visit Diagnoses Not on filedocumented in this encounter Additional Health Concerns Assessment Noted Time PHQ-9 Depression Total Score: 0 07/03/20 23 9:07 AM EDT documented as of this encounter Care Teams Tag Clerk Relationship Specialty Start Date End Date Hazel Kilgore MD [address] [place] [address] PCP - General Family Medicine 11/09/18 Tee Shay MD [address] [place] [address] Nephrology 11/07/24 Nia Borja [address] [place] [address] [address] [place] [address] Cardiology 11/07/24 Mary Ann Matthew MA [facility] Endocrinology 3300 [facility] Endocrinology 10/14/24 Derrick Mullen DPM [address] [place] [address] Podiatry 11/07/24 documented as of this encounter
--- OUTSIDE RECORDS SUMMARY | 2025-03-20 12:06 | XMS_ITS ---
Author Organization [facility] Address [address] [place] [address] Care Team Providers Care Manager Port Name Role Phone Hazel Kilgore MD Primary Care Provider Aaron Cloud [phone] Allergies No Known Allergies REASON FOR VISIT [...] 03/17/2025 Encounters Encounter Location Date Provider Diagnosis [facility] [address] [place] [address] 03/17/2025 Aaron Almazan Diarrhea R19.7 and Weight [...] Trulicity was just decreased yesterday by her racking machine operator I think be worthwhile to observe things [...] Trulicity was just decreased yesterday by her racking machine operator I think be worthwhile to observe things [...] advised of her progress. Plan Of Treatment Treatment Notes Assessment Notes [...] Next Appt Details Follow Up: 2-3 months, Reaso n: Provider Name:Aaron Almazan , 07/06/2025 10:40:00 AM, [address] [place] [address], [address], [place], [address], Progress Notes * COOPER AVILAOB:1944 (79 yo F)Acc No.[id number]:03/17/2025 Progress Notes Patient:?INNA AVILA Provider:?Aaron Almazan MD :1945???Age:79 Y???Sex:Female D ate:03/17/2025 Address:[address] [place], [place] [id number] Pcp:Hazel Kilgore MD Subjective: * Chief Complaints: * ???1. Patient presents today for chronic diarrhea. * HPI: ???incontinence:? I saw Inna in consultation today in regard to further evaluation of reported diarrhea and weight loss. I last saw Inna in October 2018 at which time she underwent a colonoscopy that was negative. In reviewing the office visit prior to the colonoscopy she was complaining primarily of some constipation at that time. She had also had a negative colonoscopy in 2006. In 2006 she also had undergone an upper endoscopy for evaluation of some anemia with duodenal biopsies raising a suspicion for celiac disease both subsequently negative celiac disease laboratories. She was therefore never put on a gluten-free diet and did well thereafter.In reviewing her hospital records she also had a negative upper endoscopy and colonoscopy in [address] Stark. She had duodenal biopsies at that time which were normal and without any sign of celiac disease. She now reports having at least several months of ongoing issues with diarrhea in which she is having loose bowel movements at least several times per day with some urgency and occasional accidents . She has not noticed any signs of bleeding. She denies any particular abdominal pain other than some occasional cramping. She has been on Trulicity since last year and has lost about 60 pounds as she was 227 pounds when I saw her in 2018 and she is 162 pounds today. She describes that her Trulicity dose was lowered yesterday by her racking machine operator due to the weight loss and GI symptoms. She denies any significant heartburn or dysphagia. She reports that her appetite has been good. She denies any particular abdominal pains, jaundice, nor fevers. She denies any known family history of colorectal cancer, inflammatory bowel disease, nor celiac disease. She does not use any significant amounts of dairy or caffeine. For the past number of months she has had a workup including GI panels that have been completely negative and negative stool for C. difficile. Laboratories from January revealed a normal liver profile except for very minimal elevations of the liver enzymes, normal chemistries and renal function, and a hemoglobin of 12.1 with a normal MCV. She also had a normal TSH level.In reviewing her hospital records she has not had any imaging studies of her abdomen in the past several years. She does describe that taking Imodium will definitely help decrease her diarrhea. She tends to use it fairly regularly at this point with good relief. * Medical History:?Stage 3 kid keren disease--Dr. Shay, IDDM, Hx of uterine cancer--2015--surgery and chemo at [facility], COPD, Back pain--scheduled for a pain stimulator insertion for 10/2018, Negative colonoscopy in 2006, EGD in 2006--- questionable duodenal biopsies in regard to possible celiac disease, but celiac disease serologies were negative and she was never started on a gluten-free diet, Neg SB capsule tudy in 2006--for eval of Iron def anemia, HTN, Hyperlipidemai, Urinary incontinence, Denies [place] or CVA, She had a negative screening colonoscopy in October 2018, Negative upper endoscopy and colonoscopy in [address] Stark. Duodenal biopsies at that time were negative for celiac disease.. * Surgical History:?NICOLAS--uteri ne cancer 2015, Back pain stimulator being placed in 10/2018 , [facility] . * Family History:?Father: dece ased.?Mother: , [...] - R19.7 (Primary )???2.?Weight loss - R63.4??? While Inna has been havin g ongoing issues with diarrhea and weight loss, [...] Trulicity was just decreased yesterday by her racking machine operator I think be worthwhile to observe things [...] to keep you advised of her progress. Plan: * Treatment: 2.?Weight loss?LAB: CRP ?LAB: [...] Almazan MD Date:? 025 Generated for Evette bejarano/Zuleima/Zacheryitting on:?03/20/2025 12:05 PM EDT History and Physical Notes * HPI (History of Present Illness) Category Sub-Category Detail Notes Category Not es incontinence I saw Inna in consultation today in regard to further evaluation of reported diarrhea and weight loss. I last saw Inna in October 2018 at which time she underwent a colonoscopy that was negative. In reviewing the office visit prior to the colonoscopy she was complaining primarily of some constipation at that time. She had also had a negative colonoscopy in 2006. In 2006 she also had undergone an upper endoscopy for evaluation of some anemia with duodenal biopsies raising a suspicion for celiac disease both subsequently negative celiac disease laboratories. She was therefore never put on a gluten-free diet and did well thereafter.In reviewing her hospital records she also had a negative upper endoscopy and colonoscopy in [address] Stark. She had duodenal biopsies at that time which were normal and without any sign of celiac disease. She now reports having at least several months of ongoing issues with diarrhea in which she is having loose bowel movements at least several times per day with some urgency and occasional accidents . She has not noticed any signs of bleeding. She denies any particular abdominal pain other than some occasional cramping. She has been on Trulicity since last year and has lost about 60 pounds as she was 227 pounds when I saw her in 2017 and she is 162 pounds today. She describes that her Trulicity dose was lowered yesterday by her racking machine operator due to the weight loss and GI symptoms. She denies any significant heartburn or dysphagia. She reports that her appetite has been good. She denies any particular abdominal pains, jaundice, nor fevers. She denies any known family history of colorectal cancer, inflammatory bowel disease, nor celiac disease. She does not use any significant amounts of dairy or caffeine. For the past number of months she has had a workup including GI panels that have been completely negative and negative stool for C. difficile. Laboratories from January revealed a normal liver profile except for very minimal elevations of the liver enzymes, normal chemistries and renal function, and a hemoglobin of 12.1 with a normal MCV. She also had a normal TSH level.In reviewing her hospital records she has not had any imaging studies of her abdomen in the past several years. She does describe that taking Imodium will definitely help decrease her diarrhea. She tends to use it fairly regularly at this point with good relief.
--- OUTSIDE RECORDS SUMMARY | 2025-03-20 12:06 | XMS_ITS | Clinical Summary ---
Author Organization [facility] Address [address] [address] Phone Care Team Providers Care Nursing Tech Name Role Phone Hazel Kilgore MD Primary [...] total) in the evening. 180 tablet 025 Active doxazosin (CARDURA) 4 MG tablet [...] Office Communication [facility] [address] [place] [address] Tee Shay MD 03/10/2025 Refill [facility] [address] [place], [place] [address] Tee Shay MD from Last 3 Months Immunizations Immunization Administration [...] Office Visit [facility] [address] [phone] EdgarAmayaSTEPHANIE [address] [address] Health Maintenance Due Date Last [...] 11/21/2024, , 01/19/2020, Additional history exists Insurance [facility] ([id number]) [facility] ([id number]) [place]HELLE [id number] Care Teams Nursing Tech Relationship Specialty Start Date End Date Hazel Kilgore MD [address] [place] [address] PCP - General 11/19/20
--- OUTSIDE RECORDS SUMMARY | 2025-03-20 12:06 | XMS_ITS | Encounter Summary ---
Author Organization [employer] Address 75 [facility] 7t [place] [address] Care Team Providers Care Pediatric Anesthesiologist Name Role Phone Hazel Kilgore MD Primary Care Provider +1- [phone] Tee Shay MD Unavailable [phone] Nia Borja Unavailable [phone] Encounter Details Date Type Department Care Team (Late st Contact Info) Description 07/15/2023 Orders Only [facility] CH[facility] MED & PEDS [address] [place], [place] [phone] Amaya Garcia LPN Social History Tobacco Use [...] Info) Description 03/27/2025 10:45 AM EDT Telemedicine [facility] MEDICINE 230 [place], [place] [phone] Hazel Kilgore MD 230 [place], [place] [phone] documented as of this encounter Visit Diagnoses Not on filedocumented in this encounter Additional Health Concerns Assessment Noted Time PHQ-9 Depression Total Score: 0 07/03/20 23 9:07 AM EDT documented as of this encounter Care Teams Pediatric Anesthesiologist Relationship Specialty Start Date End Date Hazel Kilgore MD 230 [place] [address] PCP - General Family Medicine 11/09/18 Tee Shay MD [address] [place] [address] Nephrology 11/07/24 Nia Borja 3300 [facility] [address]ND FLO[address] [place] [address] Cardiology 11/07/24 Mary Ann Matthew [place] [facility] Endocrinology 3300 [facility] Endocrinology 10/14/24 Derrick Mullen DPVannesa 175 [place] [address] Podiatry 11/07/24 documented as of this encounter
--- OUTSIDE RECORDS SUMMARY | 2025-03-20 12:06 | XMS_ITS | Encounter Summary ---
Author Organization [employer] Address [address] [facility] [address] 7t [place] [address] Care Team Providers Care Individual Pension Adviser Name Role Phone Hazel Kilgore MD Primary Care Provider [phone]- [phone] Tee Shay MD Unavailable [phone] Nia Borja Unavailable [phone] Reason for Visit * Reason Onset Date Comments Call Back Request 02/28/2025 Encounter Details Date Type Department Care Team (Late st Contact Info) Description 02/28/2025 Telephone [facility] MEDICINE 230 [place], [place] [phone] Hazel Kilgore MD 230 [place], [place] [phone] Call Back Request Social History Tobacco Use Types Packs/Day Years [...] encounter Miscellaneous Notes * Telephone Encounter - Kristine Lindsey RN - 02/28/2025 4:09 PM EDT Returned call to Shivani at Dr Almazan's office with [employer]. Shivani stated that she was asking about cdiff testing results but that she did get the fax today with recent office note, labs, etc. She said Dr Almazan is out of office until next week but she will have him review it then although its unlikely the pt will be seen sooner due to diarrhea generally not being urgent issue. Advised her PCP hoping pt can be seen sooner given that the diarrhea has been ongoing for ~4 months and various testing is negative. Shivani said that she placed Mary on informal cancellation list and will contact the pt if anything more urgent comes up. School Photograph Editor verbalized understanding. * Telephone Encounter - Melody Dawn - 02/28/2025 2:10 PM EDT Tc from Shivani with [facility] informing pt been having chronic diarrhea and will like to now if PCP has sent pt to get done the C-Diff test. Please return call to shivani for clarifications [phone] documented in this encounter Plan of Treatment Upcoming Encounters Date Type Department Care Team (Late st Contact Info) Description 03/27/2025 10:45 AM EDT Telemedicine [facility] MEDICINE 230 [place] [address] Hazel Kilgore MD 230 [place] [address] documented as of this encounter Visit Diagnoses Not on filedocumented in this encounter Additional Health Concerns Assessment Noted Time PHQ-9 Depression Total Score: 0 11/21/19 25 10:37 AM EST documented as of this encounter Care Teams Individual Pension Adviser Relationship Specialty Start Date End Date Hazel Kilgore MD 230 [place] [address] PCP - General Family Medicine 11/09/18 Tee Shay MD [address] [facility] 200 [place] [address] Nephrology 11/07/24 Nia Borja 3300 [facility] 2ND FLOOR [address] [place] [address] Cardiology 11/07/24 Mary Annkathy Matthew [facility] Endocrinology 3300 [facility] Endocrinology 10/14/24 Derrick Mullen, MADIHA 175 [place] [address] Podiatry 11/07/24 documented as of this encounter
--- OUTSIDE RECORDS SUMMARY | 2025-03-20 12:06 | XMS_ITS | Encounter Summary ---
Author Organization [facility] Address [address] [place] [address] Phone Care Team Providers Care Freight Loading Supervisor Name Role Phone Hazel Kilgore MD Primary Care Provider U catracho Encounter Details Date Type Department Care Team (Late st Contact Info) Description 03/24/2022 Telephone [facility] [address] [place] [address] Tee Shay MD 5728 [facility] 204 [place] [address] Social History Tobacco Use Types [...] - 03/24/2022 11:28 AM EDT Renae from [facility] called she would like to know if an updated script for lasix 1 tablet in the AM can besent to [facility] pharmacy seeing as the pt has not been taking her PM dose due to frequent nighttime urination. Thank you documented in this encounter Plan of Treatment Upcoming Encounters Date Type Department Care Team (Late st Contact Info) Description 05/22/2025 2:30 PM EDT Office Visit [facility] [address] [address] Amaya Edgar ARNP [address] [address] documented as of this encounter Visit Diagnoses Not on filedocumented in this encounter Care Teams Freight Loading Supervisor Relationship Specialty Start Date End Date Hazel Kilgore MD 230 [place] [address] PCP - General 11/19/20 documented as of this encounter
--- OUTSIDE RECORDS SUMMARY | 2025-03-20 12:06 | XMS_ITS | Clinical Summary ---
Author Organization 175 [facility] Address 175 [place] [address] Phone Care Team Providers Care Barrel Inspector Tight Name Role Phone Hazel Kilgore MD Primary Care Provider [phone]- [phone] Allergies No known active allergies Medications ammonium [...] 1:30 PM EDT Office Visit Orthopedic Surgery [place] [address] [phone] Derrick Mullen DPM Controlled type 2 diabetes [...] 1:15 PM EDT Office Visit Orthopedic Surgery [facility] [address] [phone] Derrick Mullen, MADIHA [address] [address] Health Maintenance Due Date Last Done Comments [...] * Urine Albumin Creatinine Ratio (08/13/2023) Pathologist [facility] Urine Albumin Creatinine Ratio Abstracted Result [facility] Provider HEALTH MAINTENANCE Final Result * Annual BMP Blood Test (08/13/2023) Pathologist [facility] Annual BMP Blood Test Abstracted [facility] Provider HEALTH MAINTENANCE Final Result * Lipid panel (08/13/2023) [facility] LDL/HDL Ratio 0 Triglycerides 0 mg/dL Cholesterol 0 mg/dL HDL 0 mg/dL LDL Cholesterol 0 mg/dL Blood Venous blood specimen / Unknown Result [facility] Provider LAB BLOOD ORDERABLES Violet l Result * Hemoglobin A1c (01/17/2021) Hemoglobin A1C 0.0 % Blood Venous blood specimen / Unknown Historical Provider LAB BLOOD ORDERABLES Violet l Result from Last 3 Months or Most Recently Relevant to Health Maintenance Insurance [facility] Member Subscriber Plan / Payer (Ef fective 2020-Present) Name:Mary Giles Relation to Subscriber:Self Name:Mary Giles Payer ID:[id number] Group ID:[id number] Type:Not on file Address: [place] [address] [address] [phone] MEDICAID - [place] Care Teams Barrel Inspector Tight Relationship Specialty Start Date End Date Christoval, MD Hazel [address] [place] [address] PCP - General 10/13/23
--- OUTSIDE RECORDS SUMMARY | 2025-03-20 12:06 | XMS_ITS | Encounter Summary ---
Author Organization [employer] Address 75 [facility] 7t [place] [address] Care Team Providers Care Shore Working Supervisor Name Role Phone Hazel Kilgore MD Primary Care Provider [phone]- [phone] Tee Shay MD Unavailable [phone] Nia Borja Unavailable [phone] Encounter Details Date Type Department Care Team (Late st Contact Info) Description 08/04/2023 Orders Only [facility] CHC MED & PEDS [address] [place], [place] [phone] Renata Lerner LPN Social History Tobacco Use [...] Info) Description 03/27/2025 10:45 AM EDT Telemedicine [facility] MEDICINE 230 [place], [place] [phone] Hazel Kilgore MD 230 [place], [place] [phone] documented as of this encounter Visit Diagnoses Not on filedocumented in this encounter Additional Health Concerns Assessment Noted Time PHQ-9 Depression Total Score: 0 07/03/20 23 9:07 AM EDT documented as of this encounter Care Teams Shore Working Supervisor Relationship Specialty Start Date End Date Hazel Kilgore MD 230 [place] [address] PCP - General Family Medicine 11/09/18 Tee Shay MD [facility] [address] [place] [address] Nephrology 11/07/24 Nia Borja [address] [place] [address] [address] [place] [address] Cardiology 11/07/24 Mary Ann Matthew [place] [facility] Endocrinology [address] [place] [address] Endocrinology 10/14/24 Derrick Mullen DPVannesa 175 [place] [address] Podiatry 11/07/24 documented as of this encounter
--- OUTSIDE RECORDS SUMMARY | 2025-03-20 12:06 | XMS_ITS | Encounter Summary ---
Author Organization [employer] Address [address] [facility] [address] 7t [place] [address] Care Team Providers Care Retail Maintenance Technician Name Role Phone Hazel Kilgore MD Primary Care Provider [phone]- [phone] Tee Shay MD Unavailable [phone] Nia Borja Unavailable [phone] Reason for Visit * Reason Comments Med Refill Encounter Details Date Type Department Care Team (Late st Contact Info) Description 08/13/2023 Refill [facility] CHC MED & PEDS [address] [place], [place] [phone] Mireya Vasquez MD 230 [place] [address] Social History Tobacco Use Types Packs/Day Years [...] Info) Description 03/27/2025 10:45 AM EDT Telemedicine [facility] MEDICINE 230 [place] [address] Hazel Kilgore MD 230 [place] [address] documented as of this encounter Visit Diagnoses Not on filedocumented in this encounter Additional Health Concerns Assessment Noted Time PHQ-9 Depression Total Score: 0 07/03/20 23 9:07 AM EDT documented as of this encounter Care Teams Retail Maintenance Technician Relationship Specialty Start Date End Date Hazel Kilgore MD 230 [place] [address] PCP - General Family Medicine 11/09/18 Tee Shay MD [address] [facility] 200 [place] [address] Nephrology 11/07/24 Nia Borja 3300 [facility] [address]ND [address]LO[address] [place] [address] Cardiology 11/07/24 Mary Ann Matthew [place] [facility] Endocrinology 3300 [facility] Endocrinology 10/14/24 Derrick Mullen, DPVannesa 175 [place] [address] Podiatry 11/07/24 documented as of this encounter
--- OUTSIDE RECORDS SUMMARY | 2025-03-20 12:06 | XMS_ITS | Encounter Summary ---
Author Organization [employer] Address 75 [facility] 7t [place] [address] Care Team Providers Care Private Equity Analyst Name Role Phone FlintHazel painting MD Primary Care Provider [phone]- [phone] Tee Shay MD Unavailable [phone] Nia Borja Unavailable [phone] Reason for Visit * Reason Comments Med Refill Encounter Details Date Type Department Care Team (Late st Contact Info) Description 09/15/2024 Refill [facility] MEDICINE 230 [place], [place] [phone] Calli Trevizo MD 230 [place] [address] Gastroesophageal reflux disease, unspecified whether esophagitis present [...] EDT Telemedicine [facility] MEDICINE 230 [place] [address] Hazel Kilgore MD 230 [place] [address] documented as of this encounter Visit Diagnoses Diagnosis Gastroesophageal reflux disease, unspecified whether esophagitis present documented in this encounter Additional Health Concerns Assessment Noted Time PHQ-9 Depression Total Score: 0 07/03/20 23 9:07 AM EDT documented as of this encounter Care Teams Private Equity Analyst Relationship Specialty Start Date End Date Hazel Kilgore MD 230 [place] [address] PCP - General Family Medicine 11/09/18 Tee Shay MD [address] [place] [address] Nephrology 11/07/24 Nia Borja 3300 [facility] [address] FLOOR [address] [place] [address] Cardiology 11/07/24 Mary Ann Matthew [place] [facility] Endocrinology 3300 [facility] Endocrinology 10/14/24 Derrick Mullen, MADIHA [address] [place] [address] Podiatry 11/07/24 documented as of this encounter
--- OUTSIDE RECORDS SUMMARY | 2025-03-20 12:06 | XMS_ITS | Encounter Summary ---
Author Organization [employer] Address [address] [facility] [address] 7t [place] [address] Care Team Providers Care Dance Studio Manager Name Role Phone Hazel Kilgore MD Primary Care Provider [phone]- [phone] Tee Shay MD Unavailable [phone] Nia Borja Unavailable [phone] Reason for Visit * Reason Comments Med Refill Encounter Details Date Type Department Care Team (Late st Contact Info) Description 08/19/2023 Refill [facility] CHC MED & PEDS [address] [place], [place] [phone] Hazel Kilgore MD 230 [place] [address] Social History Tobacco Use Types Packs/Day Years [...] Info) Description 03/27/2025 10:45 AM EDT Telemedicine [facility] MEDICINE 230 [place] [address] Hazel Kilgore MD 230 [place] [address] documented as of this encounter Visit Diagnoses Not on filedocumented in this encounter Additional Health Concerns Assessment Noted Time PHQ-9 Depression Total Score: 0 07/03/20 23 9:07 AM EDT documented as of this encounter Care Teams Dance Studio Manager Relationship Specialty Start Date End Date Hazel Kilgore MD 230 [place] [address] PCP - General Family Medicine 11/09/18 Tee Shay MD [address] [facility] 200 [place] [address] Nephrology 11/07/24 Nia Borja 3300 [facility] [address] FLOOR [address] [place] [address] Cardiology 11/07/24 Mary Ann Matthew [place] [facility] Endocrinology 3300 [facility] Endocrinology 10/14/24 Derrick Mullen, DPVannesa 175 [place] [address] Podiatry 11/07/24 documented as of this encounter
--- OUTSIDE RECORDS SUMMARY | 2025-03-20 12:06 | XMS_ITS | Encounter Summary ---
Author Organization [facility] Address 100 [facility] 200 [place] [address] Phone Care Team Providers Care Clerical Assistant Name Role Phone Hazel Kilgore MD Primary Care Provider U navailable Reason for Visit * Reason Comments Med Refill Encounter Details Date Type Department Care Team (Late Contact Info) Description 04/24/2022 Refill [facility] [address] [place] [address] [place] [address] Tee Shay MD 5248 [facility] 204 [place] [address] Social History Tobacco Use Types [...] Visit [facility] [address] [address] Amaya Edgar ARNP [address] [address] documented as of this encounter Visit Diagnoses Not on filedocumented in this encounter Care Teams Clerical Assistant Relationship Specialty Start Date End Date Hazel Kilgore MD 230 [place] [address] PCP - General 11/19/20 documented as of this encounter
--- OUTSIDE RECORDS SUMMARY | 2025-03-20 12:06 | XMS_ITS | Encounter Summary ---
Author Organization [employer] Address [address] [facility] [address] 7t [place] [address] Care Team Providers Care Project Management Professional Name Role Phone Hazel Kilgore MD Primary Care Provider [phone]- [phone] Tee Shay MD Unavailable [phone] Nia Borja Unavailable [phone] Encounter Details Date Type Department Care Team (Late st Contact Info) Description 03/17/2025 Orders Only [facility] MEDICINE 230 [place], [place] [phone] Hazel Kilgore MD 230 [place], [place] [phone] Type 2 diabetes mellitus with other specified complication, with long-term current use of insulin ([facility]) (Primary Dx); Type 2 diabetes mellitus with stage 3a chronic kidney disease, unspecified whether penitentiary insulin use ([facility]) Social History Tobacco Use Types Packs/Day Years [...] 03/27/2025 10:45 AM EDT Telemedicine [facility] MEDICINE [address] [place] [address] Hazel Kilgore MD [address] [place] [address] documented as of this encounter Visit Diagnoses Diagnosis Type 2 diabetes mellitus with other specified complication, with long-term current use of insulin (CMS/HCC)- Primary Type 2 diabetes mellitus with stage 3a chronic kidney disease, unspecified whether penitentiary insulin use ([facility]) documented in this encounter Additional Health Concerns Assessment Noted Time PHQ-9 Depression Total Score: 0 11/21/19 25 10:37 AM EST documented as of this encounter Care Teams Project Management Professional Relationship Specialty Start Date End Date Hazel Kilgore MD [address] [place] [address] PCP - General Family Medicine 11/09/18 Tee Shay MD 100 [facility] 200 [place] [address] Nephrology 11/07/24 Nia Borja [address] [place] [address] Cardiology 11/07/24 Mary Ann [facility] [place] Endocrinology 3300 [facility] Endocrinology 10/14/24 Derrick Mullen, MADIHA [address] [place] [address] Podiatry 11/07/24 documented as of this encounter
--- OUTSIDE RECORDS SUMMARY | 2025-03-20 12:06 | XMS_ITS | Encounter Summary ---
Author Organization [employer] Address 75 [facility] 7t [place] [address] Care Team Providers Care Service Tester Name Role Phone Hazel Kilgore MD Primary Care Provider [phone]- [phone] Tee Shay MD Unavailable [phone] Nia Borja Unavailable [phone] Reason for Visit * Reason Onset Date Comments Med Refill 06/20/2024 Encounter Details Date Type Department Care Team (Late st Contact Info) Description 06/20/2024 Telephone [facility] MEDICINE 230 [place], [place] [phone] Hazel Kilgore MD 230 [place], [place] [phone] Med Refill Social History Tobacco Use Types [...] MG DR capsule To be sent to: [facility] - [place], [place] - [address] [place] [address] documented in this encounter Plan of Treatment Upcoming Encounters Date Type Department Care Team (Late st Contact Info) Description 03/27/2025 10:45 AM EDT Telemedicine [facility] MEDICINE 230 [place] [address] Hazel Kilgore MD 230 [place] [address] documented as of this encounter Visit Diagnoses Not on filedocumented in this encounter Additional Health Concerns Assessment Noted Time PHQ-9 Depression Total Score: 0 07/03/20 23 9:07 AM EDT documented as of this encounter Care Teams Service Tester Relationship Specialty Start Date End Date Hazel Kilgore MD 230 [place] [address] PCP - General Family Medicine 11/09/18 Tee Shay MD [address] [place] [address] Nephrology 11/07/24 Nia Borja 3300 [facility] [address] [place] [address] Cardiology 11/07/24 Mary Ann Matthew [place] [facility] Endocrinology 3300 [facility] Endocrinology 10/14/24 Derrick Mullen, DPM 175 [place] [address] Podiatry 11/07/24 documented as of this encounter
--- OUTSIDE RECORDS SUMMARY | 2025-03-20 12:06 | XMS_ITS ---
Author Organization [facility] Address [address] [place] [address] Care Team Providers Care Pc Maintenance Technician Name Role Phone Hazel Kilgore MD Primary Care Provider Diana Aaron Rodriguez [phone] REASON FOR VISIT left v/m Encounters Encounter Location Date Provider Diagnosis [facility] [address] [place] [address] 02/28/2025 Aaron Almazan Plan Of Treatment Next Appt Details Provider Name:Aaron Vannesa Almazan , 07/06/2025 10:40:00 AM, [address], [address], [place], [address], Progress Notes * ELEAZAR MACIAS: 1945 (79 yo F)Acc No.[id number]:02/28/2025 Patient:?HENOK MACIAS :1945???Age:79 Y???Sex:Female Address:[place] [address] * true * Date:? Generated for Printi ng/Fakalinag/eTransmitting on:?03/20/2025 12:05 PM EDT
[2025-03-23 13:09] LABS: Fecal Fat Qualitative Normal (Normal)
[2025-03-24 20:18] LABS: Calprotectin, Fecal 355 mcg/g
[2025-03-25 03:09] LABS: Pancreatic Elastase-1 184 mcg/g (>200)
== END 2025-03-19 11:20 | disposition home or self-care (01) ==
LOC: HO.LNP 11:19
PROVIDERS: Visit Provider Internal Medicine
DX: R19.7 Diarrhea, unspecified (principal); R63.4 Abnormal weight loss
CPT/HCPCS: 82656; 82705; 83993

== ENCOUNTER 2025-04-13 10:07 | Outpatient (REF) | payer OTHER, SELFPAY ==
[2025-04-13 11:21] LABS: Anion Gap 11 (12-20); Blood Urea Nitrogen 30 mg/dL (9-16); Carbon Dioxide 31 mmol/L (22-29); Chloride 105 mmol/L (96-108); Estimated Glomerular Filt Rate 39; Potassium 4.6 mmol/L (3.3-5.1); Sodium 142 mmol/L (135-145)
--- OUTSIDE RECORDS SUMMARY | 2025-04-13 11:47 | XMS_ITS | Encounter Summary ---
Author Organization [employer] Address 75 [facility] 7t [place] [address] Care Team Providers Care Director Of Planning Name Role Phone Hazel Kilgore MD Primary Care Provider [phone] Tee Shay MD Unavailable [phone] Nia Borja Unavailable [phone] Encounter Details Date Type Department Care Team (Late st Contact Info) Description 10/30/2022 Orders Only [facility] [address] [place] [address] Renata Lerner LPN Social History Tobacco Use [...] Care Team (Late st Contact Info) Description 07/03/2025 11:00 AM EDT Office Visit [facility] MEDICINE 230 [place] [address] Hazel Kilgore MD 230 [place], [place] [phone] documented as of this encounter Visit Diagnoses Not on filedocumented in this encounter Care Teams Director Of Planning Relationship Specialty Start Date End Date Hazel Kilgore MD [address] [place] [phone] PCP - General Family Medicine 11/09/18 Tee Shay MD [address] [place] [address] Nephrology 11/07/24 Nia Borja [address] [place] [address] Cardiology 11/07/24 Mary Ann Matthew [place] [facility] Endocrinology 3300 [facility] Endocrinology 10/14/24 Derrick Mullen, MADIHA 175 [place] [address] Podiatry 11/07/24 documented as of this encounter
== END 2025-04-13 10:08 | disposition home or self-care (01) ==
LOC: HO.LAB 10:07
PROVIDERS: PCP Family Medicine; Visit Provider Internal Medicine
DX: R19.7 Diarrhea, unspecified (principal)
CPT/HCPCS: 36415; 80051; 82565; 84520

== ENCOUNTER 2025-04-14 13:37 | Outpatient (REF) | payer OTHER, SELFPAY ==
--- NOTE | ~2025-04-14 | CT_ITS ---
CLINICAL HISTORY: Pancreatic lesion duct obstruction CT abdomen and pelvis with contrast Comparison: None Findings: Calcified 8 mm nodule within the right lower lobe anteriorly. Cystic bronchiectasis within the right lower lobe posteromedially. Multiple small bilateral noncalcified pulmonary nodules measuring less than 5 mm diameter. Calcification of the coronary vasculature. Gallbladder is within normal limits. Moderate scarring within the right interpolar and inferior pole kidney. Ill-defined low-density within the medial and lateral segments left hepatic lobe adjacent to the falciform fissure, suggestive of fatty infiltration. Moderate pancreatic atrophy without evidence of ductal dilatation. Remaining solid organs are within normal limits. No bowel obstruction, pneumoperitoneum, or pneumatosis. Small bowel containing anterior pelvic wall hernia measuring 40 mm diameter without evidence of associated bowel strangulation nor obstruction. Bilateral proximal hamstring calcifications, ftvz-fyzzrxb-gjjq-right. Normal appendix. No acute fracture. Multilevel disc space narrowing and endplate osteophyte formation, as well as facet hypertrophy. Spinal stimulator at the mid/lower thoracic level. IMPRESSION: 1. Small bowel containing anterior pelvic wall hernia without evidence of associated strangulation or obstruction. 2. Pancreatic atrophy without evidence of ductal dilatation. 3. Right renal scarring. 4. Bilateral pulmonary nodules as well as right lower lobe cystic bronchiectasis. This could be further assessed with IV contrast-enhanced chest CT, if clinically indicated. 5. Coronary artery disease. 6. Bilateral hamstring tendinopathy. This document has been electronically signed by: Sarika Diamond MD on 04/17/2025 14:01:21
--- OUTSIDE RECORDS SUMMARY | 2025-04-14 13:40 | XMS_ITS | Encounter Summary ---
Author Organization [employer] Address [address] [facility] 7t [place] [address] Care Team Providers Care Fruit Thinner Name Role Phone Hazel Kilgore MD Primary Care Provider [phone] Tee Shay MD Unavailable [phone] Nia Borja Unavailable [phone] Encounter Details Date Type Department Care Team (Late st Contact Info) Description 10/30/2022 Orders Only [facility] [address] [place] [address] Renata Lerner LPN Social History Tobacco Use [...] Description 07/03/2025 11:00 AM EDT Office Visit [facility] [address] [place] [address] Hazel Kilgore MD [address] [place], [place] [phone] documented as of this encounter Visit Diagnoses Not on filedocumented in this encounter Care Teams Fruit Thinner Relationship Specialty Start Date End Date Hazel Kilgore MD [address] [place] [address] [phone] PCP - General Family Medicine 11/09/18 Tee Shay MD [address] [place] [address] Nephrology 11/07/24 Nia Borja [address] [place] [address] Cardiology 11/07/24 Mary Ann Matthew [place] [facility] Endocrinology [address] [facility] Endocrinology 10/14/24 Derrick Mullen, MADIHA 175 [place] [address] Podiatry 11/07/24 documented as of this encounter
[2025-04-14] MEDS: Barium Sulfate Oral (Vanilla) 450 ML ORAL.SUSP 900 ML PO (17:05)
[2025-04-14] MEDS: iohexoL 350 MG/ML 100 ML INFUS..BTL IV (17:05)
== END 2025-04-14 13:38 | disposition home or self-care (01) ==
LOC: HO.CT 13:37
PROVIDERS: PCP Family Medicine; Visit Provider Internal Medicine
DX: R19.7 Diarrhea, unspecified (principal); K86.89 Other specified diseases of pancreas
CPT/HCPCS: 74177; Q9967

== ENCOUNTER → 2025-04-14 15:11 | Outpatient (BNV) | payer OTHER, SELFPAY | PROVIDERS: PCP Family Medicine; Visit Provider Radiology Diagnostic Radiology | DX: K43.9 Ventral hernia without obstruction or gangrene (principal); K86.89 Other specified diseases of pancreas; N28.89 Other specified disorders of kidney and ureter; J47.9 Bronchiectasis, uncomplicated; R91.8 Other nonspecific abnormal finding of lung field; I25.10 Atherosclerotic heart disease of native coronary artery without angina pectoris; M67.89 Other specified disorders of synovium and tendon, multiple sites | CPT/HCPCS: 74177 ==

== ENCOUNTER 2025-06-30 08:44 | Outpatient (REF) | payer OTHER, SELFPAY ==
--- OUTSIDE RECORDS SUMMARY | 2025-06-30 08:57 | XMS_ITS | Encounter Summary ---
Author Organization [employer] Address [address] [facility] 7t [place] [address] Care Team Providers Care Diesel Engine Fitter Name Role Phone Hazel Kilgore MD Primary Care Provider [phone] Tee Shay MD Unavailable [phone] Nia Borja Unavailable [phone] Encounter Details Date Type Department Care Team (Late st Contact Info) Description 10/30/2022 Orders Only [facility] [address] [place] [address] Renata Lerner LPN Social History Tobacco Use [...] Description 07/03/2025 11:00 AM EDT Office Visit [facility] MED[facility] [address] [place] [address] Hazel Kilgore MD 230 [place], [place] [phone] documented as of this encounter Visit Diagnoses Not on filedocumented in this encounter Care Teams Diesel Engine Fitter Relationship Specialty Start Date End Date Hazel Kilgore MD [address] [place] [address] [phone] PCP - General Family Medicine 11/09/18 Tee Shay MD [address] [place] [address] Nephrology 11/07/24 Nia Borja [address] [place] [address] Cardiology 11/07/24 Mary Ann Matthew [place] [facility] Endocrinology 3300 [facility] Endocrinology 10/14/24 Derrick Mullen, MADIHA 175 [place] [address] Podiatry 11/07/24 documented as of this encounter
--- OUTSIDE RECORDS SUMMARY | 2025-06-30 08:57 | XMS_ITS | Clinical Summary ---
Author Organization [facility] Address [address] [address] Phone Care Team Providers Care Inspection Manager Name Role Phone Hazel Kilgore MD [...] BY MOUTH AT BEDTIME 45 tablet 5 03/10/20 25 Active furosemide (LASIX) 40 MG tabletIndicatio ns:Stage 3b chronic kidney disease (HCC),Renal disorder due to type 2 diabetes mellitus <Diabetic nephropathy> (HCC) TAKE 1 TABLET BY MOUTH EVERY MORNING 90 tablet 3 03/28/20 25 Active amLODIPine (Norvasc) 5 MG tablet Take 1 tablet (5 mg total) by mouth in the morning and 1 tablet (5 mg total) in the evening. 180 tablet 3 03/28/20 25 Active Active Problems Problem Noted Date Diagnosed [...] Encounters Date Type Department Care Team Description 05/22/2025 2:30 PM EDT Office Visit [facility] [address] [place] [address] Amaya Edgar ARNP Stage 3b chronic kidney disease (HCC) (Primary [...] Sign Reading Time Taken Comments Blood Pressure 115/48 05/22/2025 2:50 PM EDT Pulse 57 05/22/2025 2:50 PM EDT Temperature - - Respiratory Rate - - Oxygen Saturation 96% 05/23/2024 2:01 PM EDT Inhaled Oxygen Concentration - - Weight 75.6 kg (166 lb 9.6 oz) 05/22/2025 2:50 P M EDT Height 157.5 cm (5' 2 ) 08/31/2020 12:00 PM EDT Body Mass Index 30.47 08/31/2020 12:00 PM EDT Plan of Treatment Upcoming Encounters Date Type Department Care Team (Late st Contact Info) Description 07/10/2025 Orders Only [facility] [address] [address] Amaya Edgar ARNP [address] [phone] Stage 3b chronic kidney disease (HCC); Benign hypertensive renal disease 11/30/2025 1:00 PM EST Office Visit [facility] [address] [place] [address] Tee Shay MD [address] [facility] 204 [place] [address] Health Maintenance Due Date Last Done Comments Pneumococcal Vaccine: 50+ Years (2 of 2 - PCV) 05/04/2015 05/04/2014 Diabetes: Ophthalmology Exam 12/10/2020 Diabetes: Pedal Pulse Checked 12/10/2020 Diabetes: Sensory Foot Exam 12/10/2020 Diabetes: Visual Foot Exam 12/10/2020 Diabetes: Hemoglobin A1C 04/12/2025 025, 11/21/2024, 02/26/2024, Additional history exists Influenza Vaccine (#1) 2025 , 09/19/2021, 01/19/2020, Additional history exists Pneumococcal Vaccine: Peds (0 to 5 Years) and At-Risk Patients (6 to 49 Years) Discontinued 05/04/2014 Hepatitis B Vaccine Aged Out 09/22/2014, 10/19/2009, 09/17/2009 No longer eligible based on patient's age to complete [place] [id number] [facility] ([id number]) [place] [id number] [facility] ([id number]) [place] [id number] Care Teams Inspection Manager Relationship Specialty Start Date End Date Magui, Hazel Soriano MD [address] [place] [address] PCP - General 11/19/20
--- OUTSIDE RECORDS SUMMARY | 2025-06-30 08:57 | XMS_ITS | Patient Health Record ---
Author Organization [facility] Address [address] [place] [address] Care Team Providers Care Retail Sales Consultant Name Role Phone Hazel Kilgore MD Primary Care Provider Diana Aaron Rodriguez Unavailable [phone] Allergies No Known Allergies Results Component Value Reference Range Notes Complete Blood Count Auto Di ff Reviewed date:04/01/2025 10:14:05 PM Interpretation: Performing Lab:[facility], [address] [place] [phone] Notes/Report: White Blood Count 5.8 4.8-10.8 X10*3/uL [...] 0.000 0.0-0.012 X10*3/uL Erythrocyte Sedimentation Ra te Reviewed date:03/20/2025 11:35:44 PM Interpretation: Performing Lab:[facility], [address] [place] [phone] Notes/Report: Erythrocyte Sedimentation Rate 29 0-20 MM/HR Patients with polycythemia and many hemoglobin abnormalities may have depressed sed rates whereas patients with anemia may have elevated sed rates. C Reactive Protein Reviewed date:03/20/2025 11:35:35 PM Interpretation: Performing Lab:[facility], [address] [place] [phone] Notes/Report: C Reactive Protein 0.34 < or = 0.50 mg/dL Thyroid Stimulating Hormone Reviewed date:03/20/2025 11:35:04 PM Interpretation: Performing Lab:[address] [address] Notes/Report: Thyroid Stimulating Hormone 2.38 0.32-4.0 uIU/ mL TSH 3rd Generation ([facility]) Celiac Disease Panel Reviewed date:03/25/2025 06:42:58 PM Interpretation: Performing Lab:[address] [address] Notes/Report: Immunoglobulin A 210 70-320 mg/dL THIS TEST WAS PERFORMED AT: [facility] [address] [address] MARIUSZ FINN MD Transglutaminase IgA <1.0 Value Interpretation ----- <15.0 Antibody not detected > or = 15.0 Antibody detected Celiac Disease Panel Interp. SEE NOTE No serological evidence of celiac disease. tTG IgA may normalize in individuals with celiac disease who maintain a gluten-free diet. Consider HLA DQ2 and DQ8 testing to rule out celiac disease. Celiac disease is extremely rare in the absence of DQ2 or DQ8. Pancreatic Elastase-1 (Not y et reviewed by provider) Interpretation: Performing Lab:[facility], [address] [place] [phone] Notes/Report: Pancreatic Elastase-1 184 >200 mcg/g E-1 mcg/g feces Interpretation <100 Severe exocrine pancreatic insufficiency 100-200 Mild to moderate exocrine pancreatic insufficiency >200 Normal THIS TEST WAS PERFORMED AT: [facility] [address] [place] [address] MARY GREEN MD,PHD,BENJAMIN Fecal Fat Qualitative Reviewed date:03/31/2025 06:54:54 PM Interpretation: Performing Lab:[facility], [address] [place] [phone] Notes/Report: Fecal Fat Qualitative Normal Normal THIS TEST WAS PERFORMED AT: [facility] [address] LY CRUZ MD,PHD Chymotrypsin, Stool Reviewed date:06/04/2025 10:37:15 PM Interpretation: Performing Lab:[address] [address] Notes/Report: Chymotrypsin, Stool 1.0 2.3-51.4 U/g This test was developed and its analytical performance characteristics have been determined by [facility]. It has not been cleared or approved by the FDA. This assay has been validated pursuant to the CLIA regulations and is used for clinical purposes. THIS TEST WAS PERFORMED AT: [facility] [address] [place] [address] MARY GREEN MD,PHD,BENJAMIN Calprotectin, Fecal Reviewed date:04/06/2025 11:06:25 PM Interpretation: Performing Lab:[address] [address] Notes/Report: Calprotectin, Fecal 355 Reference Range: <50 Normal 50-120 Borderline >120 Elevated Calprotectin in Crohn's disease and ulcerative colitis can be five to several thousand times above the reference population (50 mcg/g or less). Levels are usually 50 mcg/g or less in healthy patients and with irritable bowel syndrome. Repeat testing in 4-6 weeks is suggested for borderline values. THIS TEST WAS PERFORMED AT: [facility] [address] [place] [address] MARY GREEN MD,PHD,BENJAMIN Electrolytes Reviewed date:04/13/2025 12:35:58 PM Interpretation: Performing Lab:[facility], [address] [place] [phone] Notes/Report: Sodium 142 135-145 mmol/L Potassium 4.6 3.3-5.1 mmol/L Chloride 105 96-108 mmol/L Carbon Dioxide 31 22-29 mmol/L Anion Gap 11 12-20 Blood Urea Nitrogen Reviewed date:04/13/2025 12:35:43 PM Interpretation: Performing Lab:[facility], [address] [place] [phone] Notes/Report: Blood Urea Nitrogen 30 9-16 mg/dL Creatinine Reviewed date:04/13/2025 12:35:33 PM Interpretation: Performing Lab:[facility], [address] [place] [phone] Notes/Report: Creatinine 1.30 0.5-1.4 mg/dL Estimated Glomerular Filt Rate 39 Chronic Kidney Disease: Estimated GFR < 60 mL/min/1.73m2 Severe Kidney Disease: Estimated GFR < 15 mL/min/1.73m2 CT abdomen pelvis w con Reviewed date:04/25/2025 12:45:09 AM Interpretation: Performing Lab: Notes/Report: [address] [place] [address] CT Scan Report Signed Patient: Inna Giles MR#: [id number] : 1945 Acct:[id number] Age/Sex: 79 / F ADM Date: 04/14/25 Loc: HO.CT Attending Dr: Aaron Almazan MD Ordering Physician: Aaron Almazan MD Date of Service: 04/14/25 Procedure(s): CT abdomen pelvis w IV con Accession Number(s): [id number] cc: Hazel Kilgore MD; Aaron Almazan MD Report Number: [id number]: Total DLP = 590.00 mGy-cm CLINICAL HISTORY: Pancreatic lesion duct obstruction CT abdomen and pelvis with contrast Comparison: None Findings: Calcified 8 mm nodule within the right lower lobe anteriorly. Cystic bronchiectasis within the right lower lobe posteromedially. Multiple small bilateral noncalcified pulmonary nodules measuring less than 5 mm diameter. Calcification of the coronary vasculature. Gallbladder is within normal limits. Moderate scarring within the right interpolar and inferior pole kidney. Ill-defined low-density within the medial and lateral segments left hepatic lobe adjacent to the falciform fissure, suggestive of fatty infiltration. Moderate pancreatic atrophy without evidence of ductal dilatation. Remaining solid organs are within normal limits. No bowel obstruction, pneumoperitoneum, or pneumatosis. Small bowel containing anterior pelvic wall hernia measuring 40 mm diameter without evidence of associated bowel strangulation nor obstruction. Bilateral proximal hamstring calcifications, hegn-vronnqs-wjkp-right. Normal appendix. No acute fracture. Multilevel disc space narrowing and endplate osteophyte formation, as well as facet hypertrophy. Spinal stimulator at the mid/lower thoracic level. IMPRESSION: 1. Small bowel containing anterior pelvic wall hernia without evidence of associated strangulation or obstruction. 2. Pancreatic atrophy without evidence of ductal dilatation. 3. Right renal scarring. 4. Bilateral pulmonary nodules as well as right lower lobe cystic bronchiectasis. This could be further assessed with IV contrast-enhanced chest CT, if clinically indicated. 5. Coronary artery disease. 6. Bilateral hamstring tendinopathy. This document has been electronically signed by: Sarika Diamond MD on 04/17/2025 14:01:21 Dictated By: Sarika Diamond MD Signed By: <Electronically signed by Sarika Diamond MD in OV> 04/17/25 1401 DD/ 1401 TD/TT: 04/17/25 1401 General Matcher: Reason For Referral No Information Medications Medication [...] Problem Status W/U Status Risk Notes Problem 395592643 Encounter for screening for malignant neoplasm of colon (Z12.11) Active confirmed Problem Diarrhea (R19.7) Active confirmed Problem 350835836 Long-term use of aspirin therapy (Z79.82) Active confirmed Problem 69427676 Constipation, unspecified constipation type (K59.00) Active confirmed Problem Pancreatic insufficiency (89320628) Pancreatic insufficiency (K86.89) Active confirmed Vital Signs Temperature 97.3 degrees Fahrenheit 03/17/2025 Blood pressure diastolic 01 mm Hg 03/17/2025 Height 62 in 03/17/2025 Blood pressure systolic 001 mm Hg 03/17/2025 Weight 162 lbs 03/17/2025 BMI 29.63 kg/m2 03/17/2025 Encounters Encounter Location Date Provider Diagnosis [facility] [address] [place] [address] 03/17/2025 Aaron Almazan Diarrhea R19.7 and Weight loss R63.4 [facility] [address] [place] [address] 02/28/2025 Aaron Almazan [facility] [address] [place] [address] 03/31/2025 Aaron Almazan Diarrhea R19.7 and Pancreatic insufficiency K86.89 Assessments Encounter Date Diagnosis (ICD Code) Assessment Notes Treatment Notes Treatment Clinical Notes Section Notes 03/17/2025 Diarrhea (ICD-10 - R19.7) Continue to use the Imodium for the diarhea. We will see how you do on the lower dose of Trulicity. If you continue with diarhea and weight loss we [...] duodenal biopsies for celiac disease in 2020 would certainly tend to exclude that as a [...] think the yield on that would be low. At this point since the Trulicity was just decreased yesterday by her apricot washer I think it would be worthwhile to observe things on the [...] obtain biopsies to rule out microscopic colitis if the colon appears normal. Inna was [...] duodenal biopsies for celiac disease in 2019 would certainly tend to exclude that as a [...] think the yield on that would be low. At this point since the Trulicity was just decreased yesterday by her apricot washer I think it would be worthwhile to observe things on the [...] obtain biopsies to rule out microscopic colitis if the colon appears normal. Inna was comfortable with this plan. Thank you again for allowing me to participate in Inna's care. I shall continue to keep you advised of her progress. 03/31/2025 Diarrhea (ICD-10 - R19.7) 03/31/2025 Pancreatic insufficiency (ICD-10 - K86.89) Plan Of Treatment Pending Test Test Name Order Date BUN 03/31/2025 CRP 03/17/2025 CBC w DIFF 03/17/2025 SED RATE (ESR) 03/17/2025 TRYPSIN,STOOL 03/17/2025 CT ABD & PELVIS WITH CONTRAST 03/31/2025 Electrolytes 03/31/2025 Creatinine 03/31/2025 TSH reflex Free T4 03/17/2025 Celiac Panel 10 03/17/2025 Pancreatic Elastase-1 03/19/2025 Pancreatic Elastase-1 03/17/2025 Fecal Fat Qualitative 03/17/2025 Calprotectin, Fecal 03/17/2025 Celiac Disease Panel 03/17/2025 Future Test Test Name Order Date COLONOSCOPY 09/14/2018 Next Appt Details Provider Name:Aaron Granado Almazan , 07/06/2025 10:40:00 AM, [address] [place] [address], [address], [place], [address], Insurance Providers Payer Name Payer Address Payer Phone Subscriber Number Group Number Insured Name Patient Relationship to Insured Coverage Start Date Coverage End Date [facility] [address] [place] [address] [id number] INNA SOLANO Self - patient is the insured Medical (General) History Medical History History ICD Code Stage 3 kidney disease--Dr. Shay IDDM Hx of uterine cancer--2016--surgery and chemo at [facility] Back pain--scheduled for a pain stimulat or insertion for 10/2018 Negative colonoscopy in 2006 EGD in 2006--- questionable duodenal biopsies in regard to possible celiac disease, but celiac disease serologies were negative and she was never started on a gluten-free diet Neg SB capsule tudy in 2006--for eval of Iron def anemia HTN Hyperlipidemai urinary incontinence Denies CO or CVA She had a negative screening colonoscopy in October 2018 Negative upper endoscopy and colonoscopy [place] [address] Stark. Duodenal biopsies at that time were negative for celiac disease. Surgical History Surgery Date(Month/Year) NICOLAS Back pain stimulator being placed in 2017 NICOLAS--uterine cancer 2016
[2025-06-30 12:22] LABS: Hemoglobin A1C 186.4783 umol/L; Total Hemoglobin (HGBA1C) 2965.5498 umol/L
[2025-06-30 12:41] LABS: Microalbum/Creatinine Ratio Ur 23.0 ug/mg cr (<30)
[2025-06-30 13:38] LABS: Alanine Aminotransferase 37 U/L (0-31); Albumin Level 4.0 g/dL (3.5-5.0); Alkaline Phosphatase 66 U/L (39-117); Anion Gap 11 (12-20); Aspartate Amino Transferase 35 U/L (5-31); Blood Urea Nitrogen 26 mg/dL (9-16); Calcium 9.1 mg/dL (8.4-10.2); Carbon Dioxide 32 mmol/L (22-29); Chloride 108 mmol/L (96-108); Estimated Glomerular Filt Rate 45; Ferritin 736 ng/mL (10-250); Potassium 4.7 mmol/L (3.3-5.1); Sodium 146 mmol/L (135-145); Total Protein 7.1 g/dL (6.5-8.0)
== END 2025-06-30 08:45 | disposition home or self-care (01) ==
LOC: HO.HHCL 08:44
PROVIDERS: PCP Family Medicine; Visit Provider Family Medicine
DX: E11.69 Type 2 diabetes mellitus with other specified complication (principal); E11.22 Type 2 diabetes mellitus with diabetic chronic kidney disease; N18.31 Chronic kidney disease, stage 3a; D63.1 Anemia in chronic kidney disease; Z79.4 Long term (current) use of insulin
CPT/HCPCS: 36415; 80048; 80076; 82043; 82570; 82728; 83036

== ENCOUNTER 2025-07-03 12:01 | Outpatient (REF) | payer OTHER, SELFPAY ==
--- NOTE | ~2025-07-03 | XR_ITS ---
EXAMINATION: XR LUMBOSACRAL SPINE CLINICAL INFORMATION: acute right sided low back pain COMPARISON: Correlated to CT dated September 11, 2020. TECHNIQUE: AP and lateral views FINDINGS: Multilevel marginal osteophyte formation and endplate sclerosis with incomplete ankylosis from L2 to L5. Vacuum phenomenon at L1-2. No acute cortical disruption or gross malalignment. Levoconvex curvature apex at L3. Spinal canal neurostimulator device overlapping the left iliac crest with electrode leads in the posterior aspect of the lower back and and draining in the lower thoracic spine level no fully included in the vozot-ja-rtay. Punctate radiopaque material within the large intestine from recent exam. Sclerosis in the sacroiliac joints and the articular surface of the symphysis bruits. Mild degenerative changes in the coxofemoral joints. Vascular clips in the lower retroperitoneum/pelvic region. 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 Electronically signed by: Angel Hayes MD 07/03/2025 12:31 PM EDT
--- OUTSIDE RECORDS SUMMARY | 2025-07-03 13:25 | XMS_ITS | Encounter Summary ---
Author Organization [employer] Address [address] [facility] 7t [place] [address] Care Team Providers Care Trip Motor Operator Name Role Phone Hazel Kilgore MD Primary Care Provider [phone]- [phone] Tee Shay MD Unavailable [phone] Nia Borja Unavailable [phone] Encounter Details Date Type Department Care Team (Late st Contact Info) Description 10/30/2022 Orders Only [facility] [address] [place] [address] Renata Lerner LPN Social History Tobacco Use Types Packs/Day Years Used Date Smoking Tobacco: Never Assessed Comments Unknown Sex and Gender Information Value Date Recorded Sex Assigned at Female 09/08/2022 10:19 AM EDT Legal Sex Female 10:19 AM EDT Gender Identity Female 09/08/2022 10:19 AM EDT Sexual Orientation Straight 09/08/2022 10 :19 AM EDT documented as of this encounter Plan of Treatment Not on file documented as of this encounter Visit Diagnoses Not on filedocumented in this encounter Care Teams Trip Motor Operator Relationship Specialty Start Date End Date Hazel Kilgore MD [address] [place] [address] PCP - General Family Medicine 11/09/18 Tee Shay MD 100 [facility] 200 [place] [address] Nephrology 11/07/24 Nia Borja [address] [place] [address] Cardiology 11/07/24 Mary Ann Matthew [place] [facility] 3300 [facility] Endocrinology 10/14/24 Derrick Mullen, MADIHA [address] [place] [address] Podiatry 11/07/24 documented as of this encounter
--- OUTSIDE RECORDS SUMMARY | 2025-07-03 13:25 | XMS_ITS | Clinical Summary ---
Author Organization [facility] Address [address] [address] Phone Care Team Providers Care Faucets Assembler Name Role Phone Hazel Kilgore MD Primary [...] Visit [facility] [address] [place] [address] Amaya Edgar ARNP Stage 3b chronic [...] Only [facility] [address] [address] Amaya Edgar ARNP [address] [phone] Stage 3b chronic kidney disease (HCC); Benign hypertensive renal disease 11/30/2025 1:00 PM EST Office Visit [facility] [address] [place] [address] Tee Shay MD [address] [facility] 204 [place] [address] Health Maintenance Due Date Last [...] complete [place] [id number] [facility] ([id number]) [place] [id number] [facility] ([id number]) [place] [id number] Care Teams Faucets Assembler Relationship Specialty Start Date End Date Magui, Hazel Soriano MD [address] [place] [address] PCP - General 11/19/20
--- OUTSIDE RECORDS SUMMARY | 2025-07-03 13:25 | XMS_ITS | Clinical Summary ---
Author Organization 175 [facility] Address [address] [place] [address] Phone Care Team Providers Care Radiology Administrator Name Role Phone Hazel Kilgore MD Primary Care Provider [phone] Allergies No known active allergies Medications ammonium [...] TEST BLOOD SUGAR SIX TIMES DAILY 04/10/20 23 Active blood sugar diagnostic (FreeStyle Lite Strips) test strip TEST BLOOD SUGAR SIX TIMES DAILY 04/09/20 21 Active pen needle, diabetic 31 gauge x 5/16 needle USE DIRECTED FOUR TIMES DAILY 08/05/20 23 Active lancets (TRUEplus Lancets) 33 gauge misc TEST BLOOD SUGAR SIX TIMES DAILY 09/18/20 23 Active pen needle, diabetic 31 gauge x 5/16 needle USE FOUR TIMES DAILY 04/09/20 21 Active INSULIN ASPART, NIACINAMIDE, SUBQ Active mupirocin (BACTROBAN) 2 % ointment Apply topically 1 (one) time each day for 10 days. 22 g 06/26/20 25 025 Active Encounters Date Type Department Care Team Description 06/26/2025 1:30 PM EDT Office Visit Orthopedic Surgery [address] [address] Derrick Mullen, DPM Controlled type 2 diabetes with neuropathy ([facility] V24, [facility] V28) (Primary Dx); Arthritis of both feet; PVD (peripheral vascular disease) ([facility] V24); Pain in toes of both feet; Dermatophytosis, nail; Non-pressure chronic ulcer of left ankle, limited to breakdown of skin ([facility] V24, [facility] V28) 04/24/2025 1:15 PM EDT Office Visit Orthopedic [place] [phone] [phone] Derrick Mullen DPM Controlled type 2 diabetes with neuropathy ([facility] V24, [facility] V28) (Primary Dx); Localized swelling of both lower legs; Arthritis of both feet; PVD (peripheral vascular disease) ([facility] V24); Dermatophytosis, nail from Last 3 Months [...] Care Team (Late st Contact Info) Description 08/29/2025 1:15 PM EDT Office Visit Orthopedic Surgery - [place] [phone] [phone] Derrick Mullen DPM [address] [address] Health Maintenance Due Date Last Done Comments Diabetes: Annual Foot Exam 1955 Diabetes: Annual Retina Eye Exam 1955 Diabetes: Annual Urine Albumin-Creatinine Ratio (uACR) 09/12/2024 08/13/2023 Falls Risk Assessment 09/12/2024 Osteoporosis Screening (Bone Density Screening) 09/12/2024 Social Influencers of Health Screening 09/12/2024 Depression Screening 11/09/2024 COVID-19 Vaccine ( season) 2025 11/21/2024, 12/03/2023, 09/19/2021, Additional history exists Influenza Vaccine (#1) 2025 , 08/12/2023, 08/25/2022, Additional history exists Diabetes: Blood Sugar Control Test (HGBA1C) 07/13/2025 01/10/2025, 11/21/2024, 07/21/2024, Additional history exists Diabetes: Annual GFR (Glomerular Filtration Rate) 01/10/2026 [...] 09/22/2014 RSV Immunization Adult Patients Completed 07/21/2024 HIB Vaccines Aged Out No [...] Results * Urine Albumin Creatinine Ratio (08/13/2023) Urine Albumin Creatinine Ratio Abstracted Historical Provider HEALTH MAINTENANCE Final Result * Annual BMP Blood Test (08/13/2023) Pathologist [facility] Annual BMP Blood Test Abstracted [facility] Provider HEALTH MAINTENANCE Final Result * Lipid panel (08/13/2023) [facility] LDL/HDL Ratio 0 Triglycerides 0 mg/dL Cholesterol 0 mg/dL HDL 0 mg/dL LDL Cholesterol 0 mg/dL Blood Venous blood specimen / Unknown Result [facility] Provider MD LAB BLOOD ORDERABLES Violet l Result * Hemoglobin A1c (01/17/2021) [facility] Hemoglobin A1C 0.0 % Blood Venous blood specimen / Unknown Result [facility] Provider LAB BLOOD ORDERABLES Violet l Result from Last 3 Months or Most Recently Relevant to Health Maintenance Insurance [facility] Member Subscriber Plan / Payer (Ef fective 2020-Present) Name:Inna Fontenot Relation to Subscriber:Self Name:Inna Giles Payer ID:[id number] Group ID:[id number] Type:Not on file Address: [address] [place] [address] MEDICAID - [place] Care Teams Radiology Administrator Relationship Specialty Start Date End Date [place], MD Hazel [address] [place] [phone] PCP - General 10/13/23
--- OUTSIDE RECORDS SUMMARY | 2025-07-03 13:25 | XMS_ITS | Patient Health Record ---
Author Organization [facility] Address [address] [place] [address] Care Team Providers Care Roll On Worker Name Role Phone Hazel Kilgore MD Primary Care Provider Diana Aaron Rodriguez Unavailable [phone] Allergies No Known Allergies Results Component Value Reference Range Notes Complete Blood Count Auto Di ff Reviewed date:04/01/2025 10:14:05 PM Interpretation: Performing Lab:[facility], [address] [place] [phone] Notes/Report: White Blood Count 5.8 4.8-10.8 X10*3/uL [...] te Reviewed date:03/20/2025 11:35:44 PM Interpretation: Performing Lab:[facility], [address] [place] [phone] Notes/Report: Erythrocyte Sedimentation Rate 29 0-20 MM/HR Patients with polycythemia and many hemoglobin abnormalities may have depressed sed rates whereas patients with anemia may have elevated sed rates. C Reactive Protein Reviewed date:03/20/2025 11:35:35 PM Interpretation: Performing Lab:[facility], [address] [place] [phone] Notes/Report: C Reactive Protein 0.34 < or = 0.50 mg/dL Thyroid Stimulating Hormone Reviewed date:03/20/2025 11:35:04 PM Interpretation: Performing Lab:[address] [address] Notes/Report: Thyroid Stimulating Hormone 2.38 0.32-4.0 uIU/ mL TSH 3rd Generation ([facility]) Celiac Disease Panel Reviewed date:03/25/2025 06:42:58 PM Interpretation: Performing Lab:[address] [address] Notes/Report: Immunoglobulin A 210 70-320 mg/dL THIS TEST WAS PERFORMED AT: [facility] [address] [address] MARIUSZ FINN MD Transglutaminase IgA <1.0 Value [...] y et reviewed by provider) Interpretation: Performing Lab:[facility], [address] [place] [phone] Notes/Report: Pancreatic Elastase-1 184 >200 mcg/g E-1 mcg/g feces Interpretation <100 Severe exocrine pancreatic insufficiency 100-200 Mild to moderate exocrine pancreatic insufficiency >200 Normal THIS TEST WAS PERFORMED AT: [facility] [address] [place] [address] MARY GREEN MD,PHD,BENJAMIN Fecal Fat Qualitative Reviewed date:03/31/2025 06:54:54 PM Interpretation: Performing Lab:[facility], [address] [place] [phone] Notes/Report: Fecal Fat Qualitative Normal Normal THIS TEST WAS PERFORMED AT: [facility]/[address] [address] LY CRUZ MD,PHD Chymotrypsin, Stool Reviewed date:06/04/2025 10:37:15 PM Interpretation: Performing Lab:[address] [address] Notes/Report: Chymotrypsin, Stool 1.0 2.3-51.4 U/g This test was developed and its analytical performance characteristics have been determined by [facility]. It has not been cleared or approved by the FDA. This assay has been validated pursuant to the CLIA regulations and is used for clinical purposes. THIS TEST WAS PERFORMED AT: [facility] [address] [place] [address] MARY GREEN MD,PHD,BENJAMIN Calprotectin, Fecal Reviewed date:04/06/2025 11:06:25 PM Interpretation: Performing Lab:[address] [address] Notes/Report: Calprotectin, Fecal 355 Reference Range: <50 [...] borderline values. THIS TEST WAS PERFORMED AT: [facility] [address] [place] [address] MARY GREEN MD,PHD,BENJAMIN Electrolytes Reviewed date:04/13/2025 12:35:58 PM Interpretation: Performing Lab:[facility], [address] [place] [phone] Notes/Report: Sodium 142 135-145 mmol/L Potassium 4.6 3.3-5.1 mmol/L Chloride 105 96-108 mmol/L Carbon Dioxide 31 22-29 mmol/L Anion Gap 11 12-20 Blood Urea Nitrogen Reviewed date:04/13/2025 12:35:43 PM Interpretation: Performing Lab:[facility], [address] [place] [address] Notes/Report: Blood Urea Nitrogen 30 9-16 mg/dL Creatinine Reviewed date:04/13/2025 12:35:33 PM Interpretation: Performing Lab:[facility], [address] [place] [phone] Notes/Report: Creatinine 1.30 0.5-1.4 mg/dL Estimated Glomerular Filt Rate 39 Chronic Kidney Disease: Estimated GFR < 60 mL/min/1.73m2 Severe Kidney Disease: Estimated GFR < 15 mL/min/1.73m2 CT abdomen pelvis w con Reviewed date:04/25/2025 12:45:09 AM Interpretation: Performing Lab: Notes/Report: [address] [place] [address] CT Scan Report Signed Patient: Inna Giles MR#: [id number] : 1945 Acct:[id number] Age/Sex: 79 / F ADM Date: 04/14/25 Loc: HO.CT Attending Dr: Aaron Almazan MD Ordering Physician: Aaron Almazan MD Date of Service: 04/14/25 Procedure(s): CT abdomen pelvis w IV con Accession Number(s): [id number] cc: Hazel Kilgore MD; Aaron Almazan MD Report Number: [id number]: Total DLP = 590.00 mGy-cm CLINICAL HISTORY: [...] strangulation nor obstruction. Bilateral proximal hamstring calcifications, [id number]. Normal appendix. No acute fracture. Multilevel disc [...] 04/17/25 1401 DD/ 1401 TD/TT: 04/17/25 1401 Digital Production Manager: Reason For Referral No Information Medications Medication [...] Problem Status W/U Status Risk Notes Problem 865084256 Encounter for screening for malignant neoplasm of colon (Z12.11) Active confirmed Problem Diarrhea (R19.7) Active confirmed Problem 770426667 Long-term use of aspirin therapy (Z79.82) Active confirmed Problem 94524504 Constipation, unspecified constipation type (K59.00) Active confirmed Problem Pancreatic insufficiency (88826726) Pancreatic insufficiency (K86.89) Active confirmed Vital Signs Temperature 97.3 degrees Fahrenheit 03/17/2025 Blood pressure diastolic 01 mm Hg 03/17/2025 Height 62 in 03/17/2025 Blood pressure systolic 001 mm Hg 03/17/2025 Weight 162 lbs 03/17/2025 BMI 29.63 kg/m2 03/17/2025 Encounters Encounter Location Date Provider Diagnosis [facility] [address] [place] [address] 03/17/2025 Aaron Almazan Diarrhea R19.7 and Weight loss R63.4 [facility] [address] [place] [address] 02/28/2025 Aaron Almazan [facility] [address] [place] [address] 03/31/2025 Aaron Almazan Diarrhea R19.7 and Pancreatic [...] Trulicity was just decreased yesterday by her tour conductor I think it would be worthwhile to [...] Trulicity was just decreased yesterday by her tour conductor I think it would be worthwhile to [...] Name:Aaron Granado Almazan , 07/06/2025 10:40:00 AM, [address] [place] [address], [address], [place], [address], Insurance Providers Payer Name Payer Address Payer Phone Subscriber Number Group Number Insured Name Patient Relationship to Insured Coverage Start Date Coverage End Date [facility] [address] [place] [address] [id number] INNA SOALNO Self - patient is the insured Medical (General) History Medical History History ICD Code Stage 3 kidney disease--Dr. Shay IDDM Hx of uterine cancer--2016--surgery and chemo at [facility] Back pain--scheduled for a pain stimulat or insertion for 10/2018 Negative colonoscopy in 2006 EGD in 2006--- questionable duodenal biopsies in regard to possible celiac disease, but celiac disease serologies were negative and she was never started on a gluten-free diet Neg SB capsule tudy in 2006--for eval of Iron def anemia HTN Hyperlipidemai urinary incontinence Denies NM or CVA She had a negative screening colonoscopy in October 2018 Negative upper endoscopy and colonoscopy in [address] Stark. Duodenal biopsies at that time were negative for celiac disease. Surgical History Surgery Date(Month/Year) NICOLAS Back pain stimulator being placed in 2017 NICOLAS--uterine cancer 2016
== END 2025-07-03 12:02 | disposition home or self-care (01) ==
LOC: HO.HHCL 12:01
PROVIDERS: PCP Family Medicine; Visit Provider Family Medicine
DX: M54.50 Low back pain, unspecified (principal)
CPT/HCPCS: 72100

== ENCOUNTER → 2025-07-03 12:05 | Outpatient (BNV) | payer OTHER, SELFPAY | PROVIDERS: PCP Family Medicine; Visit Provider Radiology Diagnostic Radiology | DX: M47.815 Spondylosis without myelopathy or radiculopathy, thoracolumbar region (principal); M41.35 Thoracogenic scoliosis, thoracolumbar region | CPT/HCPCS: 72100 ==

== ENCOUNTER 2025-07-13 11:41 | Outpatient (AMB) | payer OTHER, SELFPAY ==
--- OUTSIDE RECORDS SUMMARY | 2025-05-18 06:40 | XMS_ITS ---
Author Organization [facility] Address [address] [place] [address] Care Team Providers Care Plastic Bubble Packer Name Role Phone Magui FELIPE, Hazel Primary Care Provider Diana Aaron Rodriguez [phone] REASON FOR VISIT chronic diarrhea Encounters Encounter Location Date Provider Diagnosis [facility] [address] [place] [address] 05/18/2025 Aaron Almazan Plan Of Treatment No Information Progress Notes * COOPER AVILAOB:1944 (80 yo F)Acc No.[id number]:05/18/2025 Progress Notes Patient: INNA REZA Provider: Xenia Almazan MD :1945 A ge:80 Y S ex:Female Date:05/18/2025 Address:[address] [place] [address] [facility] Pcp:Hazel Kilgore MD Subjective: * Chief Complaints: * 1 . Chronic diarrhea. * Medical History: Objective: * Vitals: Assessment: Plan: * Treatment: * * The named appointment provid er may or may not be the originator of this progress note, and it is not deemed complete until electronically signed by the appointment provider. Sign off status: Pending * Provider: Xenia Almazan MD Date: 05/18/2025 Generated for Evette bejarano/Zuleima/eTransmitting on: 0 07/13/2025 01:22 PM EDT
--- OUTSIDE RECORDS SUMMARY | 2025-07-06 06:40 | XMS_ITS ---
Author Organization [facility] Address [address] [place] [address] Care Team Providers Care Construction Sales Representative Name Role Phone Hazel Kilgore MD Primary Care Provider Aaron Cloud [phone] Allergies No Known Allergies REASON FOR VISIT Patient presents today for diarrhea,wt loss Medications Medication SIG (Take, Route, Frequency, Duration) Notes Start Date End Date Status amLODIPine Besylate 5 MG TAKE 1 TABLET B Y MOUTH EVERY DAY Oral for 90 Active Gabapentin 600 MG TAKE 1 TABLET THREE TIMES DAILY IN THE MORNING, EVENING, AND BEDTIME Oral for 30 Active Ferrous Sulfate 325 (65 Fe) MG TAKE 1 TABLET THREE TIMES DAILY IN THE MORNING, AT NOON, AND IN THE EVENING Oral for 30 Active Basaglar KwikPen 100 UNIT/ML INJECT 42 UNITS SUBCUTANEOUSLY AT BEDTIME Subcutaneous for 34 Active Furosemide 40 MG TAKE 1 TABLET TWICE DAILY IN THE MORNING AND IN THE EVENING Oral for 90 Active Senna 8.6 MG TAKE 2 TABLETS EVERY DAY AT BEDTIME Oral for 30 Active Omeprazole 20 MG TAKE 1 CAPSULE EVERY MORNING WITH A MEAL Oral for 30 Active Rosuvastatin Calcium 20 MG TAKE 1 TABLET AT BEDTIME Oral for 30 Active Calcium Carbonate-Vitamin D 600-400 MG-UNIT TAKE 1 TABLET TWICE DAILY IN THE MORNING AND IN THE EVENING Oral for 30 Active Doxazosin Mesylate 4 MG TAKE 1 TABLET EV MARIA ESTHER MORNING Oral for 30 Active NovoLOG FlexPen 100 UNIT/ML INJECT 0-4 UNITS BEFORE BREAKFAST, INJECT 12-14 UNITS BEFORE LUNCH, AND INJECT 14-16 UNITS BEFORE SUPPER Subcutaneous for 39 Activ e Calcium 500 MG 1 tablet with meals Orally Twice a day Active Isosorbide Mononitrate ER 30 MG TAKE 1 TABLET EVERY MORNING Oral for 30 Active Vitamin C 500 MG TAKE 1 TABLET TWICE DAILY IN THE MORNING AND IN THE EVENING Oral for 30 Active SM Aspirin Adult Low Strength 81 MG TAKE 1 TABLET EVERY MORNING Oral for 30 Active Eliquis 5 MG as directed Orally Active Farxiga 10 MG 1 tablet Orally Once a day Active Metoprolol Succinate 25 MG 1 capsule Orally Once a day Active Social History Tobacco Use: Social History [...] alcohol Vital Signs Temperature 97.3 degrees Fahrenheit 07/06/20 25 Blood pressure systolic 001 mm Hg 07/06/20 25 Blood pressure diastolic 01 mm Hg 025 Height 62 in 07/06/2025 Weight 170 lbs 07/06/2025 BMI 31.09 kg/m2 07/06/2025 Encounters Encounter Location Date Provider Diagnosis [facility] [address] [place] [address] 07/06/2025 Aaron Almazan Diarrhea R19.7 Assessments Encounter Date Diagnosis (ICD Code) Assessment Notes Treatment Notes Treatment Clinical Notes Section Notes 07/06/2025 Diarrhea (ICD-10 - R19.7) Call me if problems come back Overall, Inna appears quite well. At this point her previous diarrhea has continued to remain stable and resolved after decreasing her Trulicity. Given the negative CT scan and no ongoing symptoms, I advised her that I do not think she has any significant GI problem causing the previous diarrhea such as pancreatic insufficiency or any other issues. I do not think she needs any further investigations, particularly since she has had 3 negative screening colonoscopies with the most recent one in 2019. I have advised her to continue to observe things and to certainly call me if things were to relapse. Otherwise she will see me on an as-needed basis. Inna was very comfortable with this plan. Thank you again for allowing me to have participated in Inna's care. Please do not hesitate to contact me if I can be of any further assistance in the future. Plan Of Treatment Treatment Notes Assessment Notes Diarrhea Call me if problems come back Next Appt Details Follow Up: prn, Reason: Progress Notes * COOPER AVILAOB:1944 (80 yo F)Acc No.[id number]:07/06/2025 Progress Notes Patient: INNA REZA Provider: Xenia Almazan MD :1945 A ge:80 Y S ex:Female Date:07/06/2025 Address:[address] [place], [place] [id number] Pcp:Hazel Kilgore MD Subjective: * Chief Complaints: * 1 . Patient presents today for diarrhea,wt loss. * HPI: i ncontinence: I saw Inna in follow-up today in regard to her previous diarrhea. I last saw Inna in March, at which time we reviewed her ongoing issues with diarrhea. Just prior to the visit with me she had decreased her Trulicity at the direction of her stoker erector and servicer. She reports that this actually helped improve her diarrhea greatly. After she saw me she did have a workup including stool specimens and a CT scan of the abdomen. The CT scan did not reveal any significant findings. I had ordered that because some of her stool specimens had raise a suspicion of pancreatic insufficiency. The pancreas did show some atrophy on the CT scan but there was no sign of any mass or other abnormality. Since having decreased her Trulicity dose she does describe that her bowel movements have basically normalized. She does take an occasional Imodium if she is going out just to be sure, but in general has not had any further episodes of diarrhea nor incontinence. She denies any hematochezia or melena. Her weight has stabilized and in fact is somewhat higher than it was back in March. She enjoys a good appetite and denies any significant heartburn or dysphagia. She denies any abdominal pain, jaundice, nor any further unintentional weight loss. * Medical History: S tage 3 kidney disease--Dr. Shay, IDDM, Hx of uterine cancer--2016--surgery and chemo at [facility], COPD, Back pain--scheduled for a pain stimulator insertion for 10/2018, Negative colonoscopy in 2006, EGD in 2006--- questionable duodenal biopsies in regard to possible celiac disease, but celiac disease serologies were negative and she was never started on a gluten-free diet, Neg SB capsule tudy in 2006--for eval of Iron def anemia, HTN, Hyperlipidemai, Urinary incontinence, Denies IN or CVA, She had a negative screening colonoscopy in October 2018, Negative upper endoscopy and colonoscopy in [address] Stark. Duodenal biopsies at that time were negative for celiac disease.. * Surgical History: T AH--uterine cancer 2016, Back pain stimulator being placed in 10/2018 , NICOLAS . * Family History: F ather: . M other: , diagnosed with Diabetes. No known hx of colon cancer. Patient's son passed with liver cancer. * Social History: T obacco Use: T obacco Use/Smoking P atient is a f ormer smoker, W hen did you stop smoking??25 years ago, H ow long has it been since you last smoked? > 10 years. D rugs/Alcohol: A lcohol Screen D id you have a drink containing alcohol in the past year? N o, P oints 0 , I nterpretation N egative. M iscellaneous: M arital status: single. Occupation: retired. N onsmoker; no sig. alcohol. * Medications: T aking Metoprolol Succinate 25 MG Capsule ER 24 Hour Sprinkle 1 capsule Orally Once a day , Taking Farxiga 10 MG Tablet 1 tablet Orally Once a day , Taking Eliquis 5 MG Tablet as directed Orally , Taking Calcium 500 MG Tablet 1 tablet with meals Orally Twice a day , Taking NovoLOG FlexPen 100 UNIT/ML Solution Pen-injector INJECT 0- 4 UNITS BEFORE BREAKFAST, INJECT 12-14 UNITS BEFORE [...] 42 UNITS SUBCUTANEOUSLY AT BEDTIME Subcutaneous , Medication List reviewed and reconciled with the patient * Allergies: N .K.D.A. Objective: * Vitals: W t:170lbs, Ht: 62 in, BMI: 31.09 Index, BP:001/01mm Hg, Temp:97.3, Wt-k.11. Assessment: * Assessment: 1. D iarrhea - R19.7 (Primary) Overall, Inna appears minoo te well. At this point her previous diarrhea has continued to remain stable and resolved after decreasing her Trulicity. Given the negative CT scan and no ongoing symptoms, I advised her that I do not think she has any significant GI problem causing the previous diarrhea such as pancreatic insufficiency or any other issues. I do not think she needs any further investigations, particularly since she has had 3 negative screening colonoscopies with the most recent one in 2019. I have advised her to continue to observe things and to certainly call me if things were to relapse. Otherwise she will see me on an as-needed basis. Inna was very comfortable with this plan. Thank you again for allowing me to have participated in Inna's care. Please do not hesitate to contact me if I can be of any further assistance in the future. Plan: * Treatment: * Preventive Medicine: Counseling: C are goal follow-up plan: A tejal Normal BMI Follow-up D ietary management education, guidance, and counseling, B IN management provided Joseph najera. Urinary Incontinence: U rinary Incontinence A ssessment: P resent, P arlene of care documented: Y es, T ype of plan of care: B ladder training. Screenings: F all Risk Screening F all Risk Assessment: T wo or more falls with injury in the past year, S creening: T wo or more falls with injury in the past year,?Assessment: N ot performed, no reason specified, P arlene of Care: D ocumented, T ype of fall plan of care: B alance, strength and gait training or instruction provided. * Follow Up: p rn * * The named appointment provid er may or may not be the originator of this progress note, and it is not deemed complete until electronically signed by the appointment provider. Sign off status: Pending * Provider: Xenia Almazan MD Date: 0 07/06/2025 Generated for Evette bejarano/Zuleima/Zacheryitting on: 0 07/13/2025 01:21 PM EDT History and Physical Notes * HPI (History of Present Illness) Category Sub-Category Detail Notes Category Not es incontinence I saw Inna in follow-up today in regard to her previous diarrhea. I last saw Inna in March, at which time we reviewed her ongoing issues with diarrhea. Just prior to the visit with me she had decreased her Trulicity at the direction of her stoker erector and servicer. She reports that this actually helped improve her diarrhea greatly. After she saw me she did have a workup including stool specimens and a CT scan of the abdomen. The CT scan did not reveal any significant findings. I had ordered that because some of her stool specimens had raise a suspicion of pancreatic insufficiency. The pancreas did show some atrophy on the CT scan but there was no sign of any mass or other abnormality. Since having decreased her Trulicity dose she does describe that her bowel movements have basically normalized. She does take an occasional Imodium if she is going out just to be sure, but in general has not had any further episodes of diarrhea nor incontinence. She denies any hematochezia or melena. Her weight has stabilized and in fact is somewhat higher than it was back in March. She enjoys a good appetite and denies any significant heartburn or dysphagia. She denies any abdominal pain, jaundice, nor any further unintentional weight loss.
--- NOTE | 2025-07-13 11:46 | A.OFFVIS_ITS ---
Vital Signs 07/13/25 11:47 Height 5 ft 2 in Intake Visit Reasons: Follow Up Allergies No Known Allergies Allergy (Mild, Verified 07/13/25 11:54) NONE Medication List - Last Reconciled 07/13/25 by Sinai Miner CNP albuterol sulfate 90 mcg/actuation (Ventolin HFA) 0 mcg inhalation amlodipine 5 mg PO QAM apixaban (Eliquis) 5 mg PO BID ascorbate calcium (vitamin C) 500 mg PO DAILY aspirin 81 mg PO BEDTIME dapagliflozin propanediol (Farxiga) 10 mg PO DAILY doxazosin 0 mg PO dulaglutide (Trulicity) mg subcut QWEEK ferrous sulfate (FeroSul) 325 mg PO TID fluticasone propionate 110 mcg/actuation (Flovent HFA) 0 mcg inhalation furosemide 40 mg PO gabapentin 600 mg PO TID insulin aspart U-100 (Novolog FlexPen U-100 Insulin aspart) subcut isosorbide mononitrate ER 30 mg PO QAM lorazepam 0.5 mg PO DAILY PRN 30 days metoprolol succinate ER 25 mg PO QAM mirabegron ER (Myrbetriq) 50 mg PO DAILY omeprazole 20 mg PO QAM rosuvastatin 20 mg PO BEDTIME sennosides (Senna Laxative) 0 mg PO tramadol 50 mg PO Q8H PRN HPI Comments Details: Ongoing pain to left leg and back pain. Tramadol as needed helps, but sometimes takes twice a day and runs out before refill due. Numbness and tingling to feet stable. Blood sugar has been okay. Some tremors to hands, L > R, which lorazepam as needed helps with. No functional impairment. No difficulty eating, drinking, or swallowing. Intermittent numbness to left hand. Walking with walker, no recent falls. Nocturnal cramps in thighs and feet are better. Sleep was okay. Chronic back pain with spinal cord stimulator helps some. Epidural injection in the past did not help. Started with left-sided sciatica going down to left foot in early 2017. Completed chemotherapy for uterine cancer in 05/2020. Numbness/tingling in feet was most noticeable [place] [facility] [place] told it was from neuropathy, known to have diabetic peripheral neuropathy. No more jerky movements and tone lapses. Anxiety related tremors in 2010, relieved with as needed lorazepam. [facility] Medical History (Updated 07/13/25 @ 11:54 by Sinai Miner CNP) Malignant neoplasm of uterus, part unspecified PAD (peripheral artery disease) Median nerve neuropathy Peripheral neuropathy Low back pain Diabetes mellitus Essential and other specified forms of tremor Eye disorder Asthma Chronic anemia Dyslipidemia HTN (hypertension) Surgical History (Updated 05/23/25 @ 08:08 by Eunice Paz CMA) H/O: hysterectomy Family History Father No problems noted. Mother No problems noted. Social History Household Members: Family Alcohol intake: never Patient Tobacco Use Status: Former Tobacco user Current occupational status: retired Current occupation: right hand dominant Review of Systems Const Denies chills, Denies daytime sleepiness, Denies difficulty sleeping, Denies fatigue, Denies fever(s), Denies frequent falls, Denies headache(s), Denies increased appetite, Denies poor appetite, Denies snoring, Denies weakness, Denies weight gain and Denies weight loss Eyes Denies loss of vision ENT Denies vertigo, Denies dizziness, Denies headache(s) and Denies neck pain Card Denies chest pain at rest, Denies chest pain with activity, Denies syncope, Denies leg edema, Denies palpitations, Denies dyspnea and Denies dyspnea on exertion Resp Denies cough, Denies dyspnea, Denies dyspnea on exertion and Denies snoring GI Denies abdominal pain, Denies constipation, Denies heartburn, Denies diarrhea and Denies nausea Denies urinary frequency, Denies urinary incontinence and Denies urinary urgency Musc Reports abnormal gait (balance difficulty), Reports back pain, Denies myalgias, Denies arthralgias, Denies neck pain, Reports numbness and Reports tingling Neuro Reports abnormal gait (balance difficulty), Denies vertigo, Denies dizziness, Denies syncope, Denies frequent falls, Denies headache(s), Denies lack of coordination, Denies loss of vision, Denies memory loss, Reports numbness, Denies Other visual disturbances, Denies restless legs, Denies seizure-like activity, Reports tingling, Denies paresthesias, Reports tremor(s) and Denies weakness Psych Denies anxiety, Denies depression, Denies auditory hallucinations, Denies memory loss and Denies visual hallucinations Endo Denies fatigue and Denies palpitations Physical Exam Const Other: General Appearance:? normal, in no acute distress. Heart:? S1, S2 normal, no murmurs. Lungs:? clear anteriorly and posteriorly. Musculoskeletal:? normal. Extremities:? no edema. Psych:? alert, oriented, cognitive function intact, cooperative with exam. Neuro Other: Abnormal Neurological Findings: Weakness and atrophy of right APB. Absent reflexes in the lower extremities. Blunting of vibration and pinprick sensation below the mid tarsal level bilaterally. Walking with walker.?? Mental Status: alert and oriented X 3. Normal attention, orientation, memory, and affect. Cranial Nerves: Pupils are equal, round, and reactive to light. External ocular muscles are intact. Visual lara are full, no ptosis. Face is symmetrical, no facial weakness or droop. Facial sensations are normal. Tongue protrudes in midline. Palate elevates symmetrically. Shoulder shrugging is normal Motor Examination: As above, otherwise normal muscle tone, bulk and strength. No atrophy or fasciculations. No drift of the extended upper extremities. DTR 1+ KJs and absent AJs. Plantars are flexor. Sensory Exam: As above, otherwise normal light touch, temperature, pinprick, vibration, and joint-position sensations. Rhomberg sign is absent. Coordination: No ataxia. No titubation. Gait Exam: With walker. Cerebellar Signs: [id number] is okay. Extrapyramidal System: No tremor, rigidity with normal facial expressions. No bradykinesia. No bradyphrenia. Normal arm swing and posture. No propulsion or retropulsion. Speech: Normal. Results Reviewed Results Reviewed: [address] [address] [address] Scan Report Signed Patient: Mary Giles MR#: [id number] : 1945 Acct:[id number] Age/Sex: 79 / F ADM Date: 08/11/24 Loc: HO.ED Attending Dr: Ordering Physician: Shelley Corrales Date of Service: 08/11/24 Procedure(s): CT head/brain wo IV con Accession Number(s): [id number] cc: Hazel Kilgore MD; Shelley Corrales~ EXAMINATION: CT brain and CT cervical spine without contrast. CLINICAL INDICATION: Fall with head strike. COMPARISON: CT brain and CT cervical spine 02/15/2024. TECHNIQUE: 5 mm thin axial and reformatted 2 mm thin sagittal and coronal images of brain were obtained without contrast. Subsequently axial 3 mm thin and reformatted 3 mm thin sagittal and coronal images of cervical spine were obtained. DLP 1079. This CT examination was performed using dose optimization technique as appropriate, variously including the following: Automated exposure control Adjustment of MA and/or KV according to patient size(this includes techniques or standardized protocols for targeted exams where dose is matched to indication/reason for exam; extremities or head. Use of iterative reconstruction techniques. FINDINGS: There is no acute intra-axial, extra-axial bleed, masses or midline shift. There is no acute infarction in evolution. There is no edema. The garber to white matter differentiation is maintained normal. The lateral ventricles are symmetrical in size but enlarged. Bone windows reveal no calvarial abnormality. There is no scalp soft tissue abnormality. Bilateral paranasal sinuses and mastoid air cells are well-aerated. Cervical spine: There is mild straightening of cervical lordosis. The vertebral heights, alignment and disc heights are normal. There is bilateral C4-5, left C3-4 joint arthropathy and hypertrophy. The craniovertebral junction and the C1-C2 alignment is normal. There is no visible acute fracture, dislocation or subluxation seen. No aggressive lytic or sclerotic process seen. The prevertebral and paravertebral soft tissues are normal. The airway is widely patent. The lung apices are clear. The thyroid lobes are symmetrical and normal. No neck mass or abnormal lymph nodes visualized. CT/CT head/brain wo IV con IMPRESSION: 1. No acute intracranial process seen. 2. There is no acute fracture, dislocation or subluxation in cervical spine. There is mild straightening of cervical lordosis likely spasm. Degenerative facet joint arthropathy as described above Electronically signed by: Onofre Mora MD 08/11/2024 06:17 PM EDT Dictated By: Onofre Mora MD Signed By: <Electronically signed by Onofre Mora MD in OV> 08/11/24 1817 Laboratory Tests 06/30/25 08:51 Hemoglobin A1c % 7.9 H 04/21/23 NCV/EMG UE Severe end stage Carpal tunnel syndrome on the right and a moderately severe Carpal tunnel syndrome on the left. Unchanged since last NCV/EMG done in 2019. Normal EMG in the right C5-T1 innervated muscles except for APB muscle with no activity. Assessment & Plan Assessment & Plan (1) Lumbar radiculopathy: Code(s): M54.16 - Radiculopathy, lumbar region Category: Medical Plan: Continue gabapentin 600mg 1 tablet three times a day. Continue tramadol 50mg 1 tablet as needed q8h for pain #30 for 30 days. (2) Bilateral carpal tunnel syndrome: Code(s): G56.03 - Carpal tunnel syndrome, bilateral upper limbs Category: Medical (3) Tremor: Code(s): R25.1 - Tremor, unspecified Category: Medical Plan: Continue lorazepam 0.5mg 1 tablet as needed for tremors/anxiety #30 for 30 days. (4) Peripheral neuropathy: Code(s): G62.9 - Polyneuropathy, unspecified Category: Medical Qualifiers: Peripheral neuropathy type: polyneuropathy, unspecified Qualified Code(s): G62.9 - Polyneuropathy, unspecified (5) Anxiety: Code(s): F41.9 - Anxiety disorder, unspecified Category: Medical Plan . Medications: Changed From gabapentin 600 mg PO TID To gabapentin 600 mg PO TID 270 tabs 1RF 90 days From tramadol 50 mg PO Q8H PRN To tramadol 50 mg PO Q8H PRN 30 tabs 5RF pain 30 days Coding Level of Care Code Est Pt Level 4 (64066) Diagnoses Lumbar radiculopathy M54.16 Bilateral carpal tunnel syndrome G56.03 Tremor R25.1 Peripheral polyneuropathy G62.9 Peripheral neuropathy type: polyneuropathy, unspecified Anxiety F41.9
--- OUTSIDE RECORDS SUMMARY | 2025-07-13 13:21 | XMS_ITS | Encounter Summary ---
Author Organization [employer] Address [address] [facility] 7t [place] [address] Care Team Providers Care Pump Operator Byproducts Name Role Phone Hazel Kilgore MD Primary Care Provider [phone] Tee Shay MD Unavailable [phone] Nia Borja Unavailable [phone] Encounter Details Date Type Department Care Team (Late st Contact Info) Description 03/19/2023 Orders Only [facility] MED & PEDS [address] [place] [address] Amaya Garcia LPN Social History Tobacco Use [...] on filedocumented in this encounter Care Teams Pump Operator Byproducts Relationship Specialty Start Date End Date Hazel Kilgore MD [address] [place] [address] PCP - General Family Medicine 11/09/18 Tee Shay MD 100 [facility] 200 [place] [address] Nephrology 11/07/24 Nia Borja 3300 [facility] [address] FLOOR [address] [place] [address] Cardiology 11/07/24 Mary Ann Matthew MA [facility] Endocrinology 3300 [facility] Endocrinology 10/14/24 Derrick Mullen, MADIHA 175 [place] [address] Podiatry 11/07/24 documented as of this encounter
--- OUTSIDE RECORDS SUMMARY | 2025-07-13 13:21 | XMS_ITS | Encounter Summary ---
Author Organization [employer] Address 75 [facility] 7t [place] [address] Care Team Providers Care Vegetable Loader Name Role Phone Hazel Kilgore MD Primary Care Provider + [phone] Tee Shay MD Unavailable [phone] Nia Borja Unavailable [phone] Encounter Details Date Type Department Care Team (Latest Contact Info) Description 07/28/2019 Abstract [facility] CONVERSIONS Dental, Provider, DDS Social History [...] on filedocumented in this encounter Care Teams Vegetable Loader Relationship Specialty Start Date End Date Hazel Kilgore MD [address] [place] [address] PCP - General Family Medicine 11/09/18 Tee Shay MD [address] [place] [address] [place] [address] Nephrology 11/07/24 Nia Borja [address] [place] [address] Cardiology 11/07/24 Mary Ann Matthew MA [facility] Endocrinology 3300 [facility] Endocrinology 10/14/24 Derrick Mullen, MADIHA [address] [place] [address] Podiatry 11/07/24 documented as of this encounter
--- OUTSIDE RECORDS SUMMARY | 2025-07-13 13:21 | XMS_ITS | Encounter Summary ---
Author Organization [employer] Address 75 [facility] 7t [place] [address] Care Team Providers Care National Account Director Name Role Phone Hazel Kilgore MD Primary Care Provider + [phone] Tee Shay MD Unavailable [phone] Nia Borja Unavailable [phone] Encounter Details Date Type Department Care Team (Late st Contact Info) Description 07/15/2023 Orders Only [facility] MED & PEDS [address] [place] [address] Amaya Garcia LPN Social History Tobacco Use [...] documented as of this encounter Care Teams National Account Director Relationship Specialty Start Date End Date Hazel Kilgore MD [address] [place] [address] PCP - General Family Medicine 11/09/18 Tee Shay MD [address] [place] [address] [place] [address] Nephrology 11/07/24 Nia Borja 3300 [facility] [address] FLOOR [address] [place] [address] Cardiology 11/07/24 Mary Ann Matthew MA [facility] Endocrinology [address] [facility] Endocrinology 10/14/24 Derrick Mullen, DPM 175 [place] [address] Podiatry 11/07/24 documented as of this encounter
--- OUTSIDE RECORDS SUMMARY | 2025-07-13 13:21 | XMS_ITS | Encounter Summary ---
Author Organization [employer] Address 75 [facility] 7t [place] [address] Care Team Providers Care Shampooer Name Role Phone Hazel Kilgore MD Primary Care Provider [phone] Tee Shay MD Unavailable [phone] Nia Borja Unavailable [phone] Encounter Details Date Type Department Care Team (Late st Contact Info) Description 04/10/2023 Orders Only [facility] CHC MED & PEDS [address] [place] [address] Amaya Garcia LPN Social History Tobacco Use [...] on filedocumented in this encounter Care Teams Shampooer Relationship Specialty Start Date End Date Hazel Kilgore MD [address] [place] [address] PCP - General Family Medicine 11/09/18 Tee Shay MD 100 [facility] 200 [place] [address] Nephrology 11/07/24 Nia Borja 3300 [facility] [address] FLOOR [address] [place] [address] Cardiology 11/07/24 Mary Ann Matthew MA [facility] Endocrinology 3300 [facility] Endocrinology 10/14/24 Derrick Mullen, MADIHA 175 [place] [address] Podiatry 11/07/24 documented as of this encounter
--- OUTSIDE RECORDS SUMMARY | 2025-07-13 13:21 | XMS_ITS | Encounter Summary ---
Author Organization [employer] Address 75 [facility] 7t [place] [address] Care Team Providers Care Ophthalmic Surgical Assistant Name Role Phone Hazel Kilgore MD Primary Care Provider [phone]- [phone] Tee Shay MD Unavailable [phone] Nia Borja Unavailable [phone] Encounter Details Date Type Department Care Team (Late st Contact Info) Description 10/30/2022 Orders Only [facility] [address] [place] [address] Renata Lerner LPN Social History Tobacco Use [...] on filedocumented in this encounter Care Teams Ophthalmic Surgical Assistant Relationship Specialty Start Date End Date Hazel Kilgore MD [address] [place] [address] PCP - General Family Medicine 11/09/18 Tee Shay MD 100 [facility] 200 [place] [address] Nephrology 11/07/24 Nia Borja [address] [place] [address] Cardiology 11/07/24 Mary Ann Matthew MA [facility] Endocrinology 3300 [facility] Endocrinology 10/14/24 Derrick Mullen, MADIHA [address] [place] [address] Podiatry 11/07/24 documented as of this encounter
--- OUTSIDE RECORDS SUMMARY | 2025-07-13 13:21 | XMS_ITS | Encounter Summary ---
Author Organization [employer] Address 75 [facility] 7t [place] [address] Care Team Providers Care Tanning Salon Attendant Name Role Phone Hazel Kilgore MD Primary Care Provider [phone] Tee Shay MD Unavailable Nia Borja Unavailable [phone] Encounter Details Date Type Department Care Team (Late st Contact Info) Description 12/26/2022 Abstract [facility] MEDICINE [address] [place], [place] [phone] Hazel Kilgore MD [address] [place], [place] [id number] Social History Tobacco Use Types Packs/Day Years [...] on file documented as of this encounter Procedures Procedure Name Priority Date/Time Associated Diagnosis Comments MAMMOGRAPHY Routine 09/18/2022 COLONOSCOPY Routine 06/19/2020 documented in this encounter Results * Mammography (09/18/2022) Mammogram BIRADS 1 Anatomical Region Laterality Modality Other Historical Provider HEALTH MAINTENANCE Final Result * Colonoscopy (06/19/2020) Colonoscopy normal us Historical Provider HEALTH MAINTENANCE Final Result documented in this encounter Visit Diagnoses Not on filedocumented in this encounter Care Teams Tanning Salon Attendant Relationship Specialty Start Date End Date Hazel Kilgore MD [address] [place] [address] PCP - General Family Medicine 11/09/18 Tee Shay MD [address] [place] [address] [place] [address] Nephrology 11/07/24 Nia Borja 3300 [facility] [address] [place] [address] Cardiology 11/07/24 Mary Ann Matthew MA [facility] Endocrinology 3300 [facility] Endocrinology 10/14/24 Derrick Mullen, DPM [address] [place] [address] Podiatry 11/07/24 documented as of this encounter
--- OUTSIDE RECORDS SUMMARY | 2025-07-13 13:21 | XMS_ITS | Encounter Summary ---
Author Organization [employer] Address [address] [facility] 7t [place] [address] Care Team Providers Care Greaser And Oiler Name Role Phone Hazel Kilgore MD Primary Care Provider [phone] Tee Shay MD Unavailable [phone] Nia Borja Unavailable [phone] Encounter Details Date Type Department Care Team (Late st Contact Info) Description 01/21/2023 Orders Only [facility] CHC MED & PEDS [address] [place] [address] Amaya Garcia LPN Social History Tobacco Use [...] on filedocumented in this encounter Care Teams Greaser And Oiler Relationship Specialty Start Date End Date Hazel Kilgore MD [address] [place] [address] PCP - General Family Medicine 11/09/18 Tee Shay MD 100 [facility] 200 [place] [address] Nephrology 11/07/24 Nia Borja 3300 [facility] [address] FLOOR [address] [place] [address] Cardiology 11/07/24 Mary Ann Matthew MA [facility] Endocrinology 3300 [facility] Endocrinology 10/14/24 Derrick Mullen, MADIHA 175 [place] [address] Podiatry 11/07/24 documented as of this encounter
--- OUTSIDE RECORDS SUMMARY | 2025-07-13 13:22 | XMS_ITS | Clinical Summary ---
Author Organization [employer] Address [address] [facility] [address] [place] [address] Care Team Providers Care Special Education Curriculum Specialist Name Role Phone Hazel Kilgore MD Primary Care Provider [phone] Tee Shay MD Unavailable [phone] Nia Borja Unavailable [phone] Allergies No known active allergies Medications aspirin (Aspirin Low Dose) 81 MG EC tabletIndication s:Atrial fibrillation with RVR ([facility]) Per cardiology 024 Active dapagliflozin (Farxiga) 10 MGIndications:Ty pe 2 diabetes mellitus with stage 3a chronic kidney disease, unspecified whether assisted insulin use ([facility]) Take 1 tablet by mouth. 024 Active doxazosin (Cardura) 4 MG tabletIndication s:Hypertension, unspecified type Take 1.5 tablets by mouth at bedtime. 024 Active insulin glargine (Lantus SoloStar) 100 UNIT/ML penIndications:T ype 2 diabetes mellitus with stage 3a chronic kidney disease, unspecified whether assisted insulin use ([facility]) Inject 30 units subcutaneously daily 15 mL 3 024 Active insulin aspart (NovoLOG FLEXPEN) 100 UNIT/ML penIndications:T ype 2 diabetes mellitus with stage 3a chronic kidney disease, unspecified whether freight claim investigator insulin use ([facility]) Inject 6-7 units tid before meals sc 15 mL 11 024 Active traMADol (Ultram) 50 MG tabletIndication s:Back [...] tabletIndication s:Hypertension, unspecified type,Atrial fibrillation with RVR (CMS/HCC) Take 1 tablet (25 mg) by mouth Once per day. 90 tablet 3 024 Active LORazepam (Ativan) 0.5 MG tabletIndication s:Tremor Take by mouth. From neruology Active gabapentin (Neurontin) 600 MG tabletIndication s:Neuropathy Take by mouth. Per specialist tid Active FREESTYLE LITE test stripIndications :Type 2 diabetes mellitus with stage 3a chronic kidney disease, unspecified whether freight claim investigator insulin use ([facility]) Use bid prn 150 strip 11 024 Active furosemide (Lasix) 40 MG tabletIndication s:Hypertension, unspecified type Take by mouth. Per nephrology Active fluticasone (Flovent HFA) 110 MCG/ACT inhalerIndicatio ns:Type 2 diabetes mellitus with stage 3a chronic kidney disease, unspecified whether freight claim investigator insulin use ([facility]),Chroni c bronchitis, unspecified chronic bronchitis type ([facility]) Rinse mouth with water after use to reduce aftertaste and incidence of candidiasis. Do not swallow. 48 g 3 024 Active Eliquis 5 MG tabletIndication s:Atrial fibrillation with RVR ([facility]/HCC) Take 1 tablet (5 mg) by mouth 2 times daily. 60 tablet 11 024 Active prednisoLONE acetate (Pred-Forte) 1 % ophthalmic suspensionIndica tions:Open-angle glaucoma, unspecified glaucoma stage, unspecified laterality, unspecified open-angle glaucoma type INSTILL 1 DROP INTO RIGHT EYE TWICE A DAY 024 Active isosorbide mononitrate ER (Imdur) 30 MG 24 hr tabletIndication s:Primary hypertension TAKE 1 TABLET BY MOUTH EVERY MORNING 90 tablet 1 025 Active rosuvastatin (Crestor) 20 MG tabletIndication s:Type 2 diabetes mellitus with stage 3b chronic kidney disease, with long-term current use of insulin ([facility]),Hyperl ipidemia, unspecified hyperlipidemia type TAKE 1 TABLET BY MOUTH AT BEDTIME 90 tablet 3 025 Active Dulaglutide (Trulicity) 1.5 MG/0.5ML solution auto-injectorInd ications:Type 2 diabetes mellitus with stage 3a chronic kidney disease, unspecified whether freight claim investigator insulin use ([facility]) Inject under the skin. Active docusate sodium (Colace) 100 MG capsuleIndicatio ns:Constipation, unspecified constipation type TAKE 1 CAPSULE BY MOUTH TWICE DAILY IN THE MORNING AND AT BEDTIME 60 capsule 3 025 Active TRUEplus Lancets 33G miscIndications: Type 2 diabetes mellitus with other specified complication, with long-term current use of insulin ([facility]) TEST BLOOD SUGAR SIX TIMES DAILY 100 each 11 025 Active Anti-Diarrheal 2 MG tabletIndication s:Diarrhea, unspecified type TAKE 1 TABLET BY MOUTH THREE TIMES DAILY IN THE MORNING, AT NOON, AND AT BEDTIME NEEDED FOR DIARRHEA 30 tablet 2 025 Active senna (Senokot) 8.6 MG tabletIndication s:Constipation, unspecified constipation type TAKE 1 TABLET BY MOUTH AT BEDTIME NEEDED FOR CONSTIPATION 60 tablet 2 025 Active omeprazole (PriLOSEC) [address] capsuleIndicatio ns:Gastroesophag eal reflux disease, unspecified whether esophagitis present TAKE 1 CAPSULE BY MOUTH EVERY MORNING BEFORE BREAKFAST 90 capsule 1 025 Active Calcium Carb-Cholecalcif noelle 600-10 MG-MCG tabletIndication s:Renal osteodystrophy TAKE 1 TABLET BY MOUTH TWICE DAILY IN THE MORNING AND AT BEDTIME 180 tablet 1 025 Active Aspirin Low Dose 81 MG EC tabletIndication s:Type 2 diabetes mellitus with other specified complication, with long-term current use of insulin ([facility]) TAKE 1 TABLET BY MOUTH AT BEDTIME 90 tablet 1 025 Active FT Earwax Removal 6.5 % otic solutionIndicati ons:Bilateral impacted cerumen PLACE 5-10 DROPS INTO THE AFFECTED EAR(S) TWICE DAILY FOR 4 DAYS 15 mL 1 025 Active nystatin (Mycostatin) 164760 UNIT/GM powderIndication s:Candidiasis Apply topically 2 times daily. 30 g 3 025 2025 Active Diclofenac Sodium (Voltaren) 1 % gelIndications:A cute right-sided low back pain without sciatica Use tid topically prn pain on back 50 g 3 025 Active clobetasol (Temovate) 0.05 % ointmentIndicati ons:Venous stasis Apply topically 2 times daily. Use on ankle nightly for 2 weeks 45 g 1 025 Active Embecta Pen Needle Ultrafine 31G X 5 MM miscIndications: Type 2 diabetes mellitus with other specified complication, with long-term current use of insulin ([facility]) USE DIRECTED FOUR TIMES DAILY 100 each 11 025 Active Sure Comfort Pen Sadorus 31G X 5 MM miscIndications: Type 2 diabetes mellitus with other specified complication, with long-term current use of insulin (CMS/HCC) USE DIRECTED FOUR TIMES DAILY 100 each 11 024 2024 Discontinued dulaglutide (Trulicity) 3 MG/0.5ML solution pen-injectorIndi cations:Type 2 diabetes mellitus with stage 3a chronic kidney disease, unspecified whether assisted insulin use ([facility]) Inject 3 mg under the skin 1 (one) time per week. Per endocrinology 2024 Discontinued(M ed list cleanup (will not trigger notification to Pharmacy)) carbamide peroxide (Debrox) 6.5 % otic solutionIndicati ons:Bilateral impacted cerumen Administer 5-10 drops into affected ear(s) 2 times daily for 4 days. 30 mL 025 2024 Discontinued Aspirin EC Adult Low Dose 81 MG EC tabletIndication s:Type 2 diabetes mellitus with other specified complication, with long-term current use of insulin (CMS/HCC) TAKE 1 TABLET BY MOUTH AT BEDTIME 90 tablet 1 025 2024 Discontinued Calcium + Vitamin D3 600-10 MG-MCG tabletIndication s:Renal osteodystrophy TAKE 1 TABLET BY MOUTH TWICE DAILY IN THE MORNING AND AT BEDTIME 180 tablet 1 025 2024 Discontinued omeprazole (PriLOSEC) [address] capsuleIndicatio ns:Gastroesophag eal reflux disease, unspecified whether esophagitis present TAKE 1 CAPSULE BY MOUTH EVERY MORNING BEFORE BREAKFAST 90 capsule 1 025 2024 Discontinued erythromycin (Romycin) 5 MG/GM ophthalmic ointmentIndicati ons:Conjunctival Infection Apply Amount per Dose: 0.25 inch (~0.5 cm) per dose. TID for 1 week. 15 g 025 2024 Discontinued(M ed list cleanup (will not trigger notification to Pharmacy)) Ascorbic Acid (vitamin C) 500 MG tabletIndication s:Iron deficiency TAKE 1 TABLET BY MOUTH TWICE DAILY IN THE MORNING AND AT BEDTIME 60 tablet 11 025 2024 Discontinued ferrous sulfate 325 (65 Fe) MG EC tabletIndication s:Iron deficiency TAKE 1 TABLET BY MOUTH THREE TIMES DAILY IN THE MORNING, AT NOON, AND IN THE EVENING 90 tablet 025 2024 Discontinued(R eorder (will not trigger notification to Pharmacy)) ferrous sulfate 325 (65 Fe) MG EC tabletIndication s:Iron deficiency TAKE 1 TABLET BY MOUTH THREE TIMES DAILY IN THE MORNING, AT NOON, AND IN THE EVENING 90 tablet 025 2024 Discontinued Active Problems Patient Care Coordination No te Formatting of this note migh t be different from the original. [facility] Career Manager: Kaylin member services number [phone], provider services line, , option 4 Draw Frame Runner [facility] Problem Noted Date Diagnosed Date Diarrhea 01/10/2025 Overview (04/17/2025): Unknown etiology. Suspect influence of iron supplements and Colace, recommending stopping those for time being until diarrhea clears, -Ordered Stool panel, Albumin Cr ratio, HFP, A1C, FLP and BMP, mostly unremarkable, called lab for C Diff results, they reported never getting order, order was placed will see if specimen can be reused 01/20/25 -Advised on adequate hydration. 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 Almazan 03/27/25 who noted that Mary has been having ongoing issues with diarrhea and weight loss. Has had multiple colonoscopies that have been negative over the past number of years. Her recent normal labs included a reassuring CBC. Negative duodenal biopsies for celiac disease in 2020. Given the fact that she has been on Trulicity since last year that would certainly potentially account for her weight loss and perhaps some GI symptoms such as she is having. No suspicion for inflammatory bowel disease. Since she is responding [...] point since the Trulicity was just decreased yesterday(03/26/25) by her tongue carrier. Will observe things on the lower dose. I am going to check some further stool specimens and labs including labs for celiac disease. Follow-up in the next 2 to 3 months. If she is continuing to have significant problems prior to the next office visit we could always schedule a colonoscopy over the phone. If she does have a colonoscopy for the ongoing diarrhea I would plan to obtain biopsies to rule out microscopic colitis even if the colon appears normal. -03/27/25 encouraged pt to call her GI doctor for sooner follow-up, and we will do a reach out to the pharmacist to see if there's any medications that might be causing her symptoms. -CT 04/13/[address] Almazan IMPRESSION: Small bowel containing anterior pelvic wall hernia without evidence of associated strangulation or obstruction. Pancreatic atrophy without evidence of ductal dilatation. Bilateral pulmonary nodules as well as right lower lobe cystic bronchiectasis. This could be further assessed with IV contrast-enhanced chest CT, if clinically indicated. Assessment & Plan (03/27/2025 6:19 PM EDT): Unknown etiology. Suspect influence of iron supplements and Colace, recommending stopping those for time being until diarrhea clears, -Ordered Stool panel, Albumin Cr ratio, HFP, A1C, FLP and BMP, mostly unremarkable, called lab for C Diff results, they reported never getting order, order was placed will see if specimen can be reused 01/20/25 -Advised on adequate hydration. 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 Almazan 03/27/25 who noted that Mary has been having ongoing issues with diarrhea and weight loss. Has had multiple colonoscopies that have been negative over the past number of years. Her recent normal labs included a reassuring CBC. Negative duodenal biopsies for celiac disease in 2019. Given the fact that she has been on Trulicity since last year that would certainly potentially account for her weight loss and perhaps some GI symptoms such as she is having. No suspicion for inflammatory bowel disease. Since she is responding [...] point since the Trulicity was just decreased yesterday(03/26/25) by her tongue carrier. Will observe things on the lower dose. I am going to check some further stool specimens and labs including labs for celiac disease. Follow-up in the next 2 to 3 months. If she is continuing to have significant problems prior to the next office visit we could always schedule a colonoscopy over the phone. If she does have a colonoscopy for the ongoing diarrhea I would plan to obtain biopsies to rule out microscopic colitis even if the colon appears normal. -03/27/25 encouraged pt to call her GI doctor for sooner follow-up, and we will do a reach out to the pharmacist to see if there's any medications that might be causing her symptoms. Assessment & Plan (01/20/2025 10:41 AM EDT): [...] peroxide (Debrox) 6.5 % otic solution 11/21/24 Ambulates with cane 12/03/2023 Senile hyperkeratosis 12/02/2023 12/02/2023 Knee pain 12/02/2023 12/02/2023 GERD (gastroesophageal reflux disease) 4 12/02/2023 Class 1 obesity 12/02/2023 12/02/2023 Atrial [...] She will be set up with a monitoring specialist to evaluate for atrial fibrillation burden. -Echocardiogram with Evita Sevilla MD : The left ventricle is normal in size. Ejection fraction is 55-60%. The basal inferior wall is akinetic. Grade II diastolic dysfunction.The left atrium is mildly dilated.The right ventricle is normal in size. Function is preserved.The right atrium is normal in size. -seen by cardiology [facility] Attending Physician: Rigo Borja NP [...] She will be set up with a monitoring specialist to evaluate for atrial fibrillation burden. -Echocardiogram with Evita Sevilla MD : The left ventricle is normal in size. Ejection fraction is 55-60%. The basal inferior wall is akinetic. Grade II diastolic dysfunction.The left atrium is mildly dilated.The right ventricle is normal in size. Function is preserved.The right atrium is normal in size. -seen by cardiology [facility] Attending Physician: Rigo Borja NP [...] She will be set up with a monitoring specialist to evaluate for atrial fibrillation burden. Other specified health status 08/05/2023 Overview (11/21/2024): -next physical exam due after 11/21/2025 -eye care facilitated by Dr. Stubbs at [facility], seen 06/2024 -dental home is [facility] care proxy on file 12/03/23 Assessment & Plan (11/21/2024 12:46 PM EST): -next physical exam due after 11/21/2025 -eye care facilitated by Dr. Stubbs at [facility], seen 06/2024 -dental home is [place] [facility] care proxy on file 12/03/23 Assessment & Plan (07/01/2024 11:04 AM EDT): -next physical exam due after 08/12/2024 -eye care facilitated by Dr. Stubbs seen 11/2023 -dental home is [place] [facility] care proxy on file 12/03/23 Assessment & Plan (08/12/2023 1:17 PM EDT): -next physical exam due after 08/12/2024 -eye care facilitated by Dr. Stubbs -dental home is [place] History of endometrial cancer 12/19/2021 Overview (08/05/2023): [...] residual on most recent CT. Follow up eyelet machine operator onc. Assessment & Plan (07/01/2024 11:04 AM [...] residual on most recent CT. Follow up eyelet machine operator onc. Assessment & Plan (08/05/2023 10:03 AM [...] residual on most recent CT. Follow up eyelet machine operator onc. Urinary incontinence 12/19/2021 Anemia of chronic renal failure 04/22/2021 Overview (07/01/2024): Lab Results Component Value Date HGB 10.5 (L) 04/12/2021 HGB 10.6 (L) 01/17/2021 HEMATOCRIT 35.5 04/12/2021 HEMATOCRIT 35.9 01/17/2021 Assessment & Plan (07/03/2025 4:13 PM EDT): Orders: Ferritin; Future Assessment & Plan (07/01/2024 11:00 AM EDT): [...] trying to get her a scooter. Her caseworker is Cris Ibarra , phone #: [phone]. Was last seen on 04/2019 by [facility] and no further recommendations Assessment & Plan (07/04/2025 8:52 AM EDT): XR 07/04/25 IMPRESSION: Multilevel moderate to severe thoracolumbar spondylosis with a levoconvex scoliosis apex at L3 and incomplete ankylosis from L2 to L5. Orders: Diclofenac Sodium (Voltaren) 1 % gel; Use tid topically prn pain on back XR Lumbar Spine 2-3 Views; Future Assessment & Plan (08/05/2023 10:55 AM EDT): [...] trying to get her a scooter. Her caseworker is Cris Ibarra , phone #: [phone]. Was last seen on 04/2019 by [facility] [...] -Restarted amlodipine, refilled 01/10/25 Assessment & Plan (07/03/2025 4:13 PM EDT): -Blood pressure is at goal -Continue [...] due to persistent hyperkalemia Hyperlipemia 03/26/2012 Overview (07/03/2025): Lab Results Component Value Date CHOL 133 01/10/2025 CHOL 130 07/21/2024 CHOL 127 08/13/2023 TRIG 81 01/10/2025 TRIG 114 07/21/2024 TRIG 79 08/13/2023 HDL 47 01/10/2025 HDL 43 07/21/2024 HDL 46 08/13/2023 LDLCHOLCAL 70 01/10/2025 LDLCHOLCAL 65 07/21/2024 LDLCHOLCAL 66 08/13/2023 -continue lifestyle modification -continue rosuvastatin 20mg daily Assessment & Plan (07/03/2025 4:13 PM EDT): Lab Results Component Value Date CHOL 133 01/10/2025 CHOL 130 07/21/2024 CHOL 127 08/13/2023 TRIG 81 01/10/2025 TRIG 114 07/21/2024 TRIG 79 08/13/2023 HDL 47 01/10/2025 HDL 43 07/21/2024 HDL 46 08/13/2023 LDLCHOLCAL 70 01/10/2025 LDLCHOLCAL 65 07/21/2024 LDLCHOLCAL 66 08/13/2023 -continue lifestyle modification -continue [...] daily Type 2 diabetes mellitus 03/26/2012 Overview (07/03/2025): Diabetes is controlled. Followed at [facility] with HENOK King note from 10/13/24 reviewed Lab Results Component Value Date HGBA1C 7.9 (H) 06/30/2025 HGBA1C 7.6 (H) 01/10/2025 HGBA1C 8.5 (A) 11/21/2024 - Lab Results Component Value Date CREATININE 1.15 06/30/2025 EGFR 45 06/30/2025 MICROALBCREU 23.0 06/30/2025 MICROALBCREU 14.0 01/10/2025 LDLCHOLCAL 70 01/10/2025 -Juliano/Arb: none due to hx hyperkalemia -Statin therapy: rosuvastatin 20mg -Diabetic eye exam: with [facility] 06/2024 -Diabetic foot exam: 1via podiatry with Raymond Mullen done 11/16/23 -Continue lifestyle modifications -Continue current medications -Farxiga 10 qam -Trulicity 3 MG, decreased to -Lantus 30 units -Novolog 5 or 6 qac Assessment & Plan (07/03/2025 4:13 PM EDT): Diabetes is controlled. Followed at [facility] with HENOK King note from 10/13/24 reviewed Lab Results Component Value Date HGBA1C 7.9 (H) 06/30/2025 HGBA1C 7.6 (H) 01/10/2025 HGBA1C 8.5 (A) 11/21/2024 - Lab Results Component Value Date CREATININE 1.15 06/30/2025 EGFR 45 06/30/2025 MICROALBCREU 23.0 06/30/2025 MICROALBCREU 14.0 01/10/2025 LDLCHOLCAL 70 01/10/2025 -Juliano/Arb: none due to hx hyperkalemia -Statin therapy: rosuvastatin 20mg -Diabetic eye exam: with [facility] 06/2024 -Diabetic foot exam: 1via podiatry with Raymond Mullen done 11/16/23 -Continue lifestyle modifications -Continue current medications -Farxiga 10 qam -Trulicity 3 MG, decreased to -Lantus 30 units -Novolog 5 or 6 qac Orders: Albumin, Random Urine W/Creatinine; Future Hepatic Function Panel; Future Hemoglobin A1c; Future Basic Metabolic Panel; Future Assessment & Plan (01/10/2025 11:21 AM EST): Diabetes is controlled. Followed at [facility] with HENOK King note from 10/13/24 [...] AM EST): Diabetes is controlled. Followed at [facility] Lab Results Component Value Date HGBA1C [...] Problem Noted Date Diagnosed Date Resolved Date Constipation 11/21/2024 04/17/2025 Overview (11/21/2024): - Prescribed senna (Senokot) 8.6 MG tablet 11/21/24 Assessment & Plan (11/21/2024 12:44 PM EST): - Prescribed senna (Senokot) 8.6 MG tablet 11/21/24 Accident due to mechanical f all without [...] at home. PAP smear: UTD. Fu'd by MOTOR HOME ELECTRICAL FOREMAN due to hx malignancy Mammogram:UTD, no need [...] Encounters Date Type Department Care Team Description 07/04/2025 Results Follow-Up [facility] [address] [place] [phone] Hazel Kilgore MD XR Lumbar Spine 2-3 Views 07/04/2025 Refill [facility] [address] [place] [address] Hazel Kilgore MD Type 2 diabetes mellitus with other specified complication, with long-term current use of insulin ([facility]) 07/03/2025 11:00 AM EDT Office Visit [facility] [address] [place] [address] [phone] Hazel Kilgore MD Type 2 diabetes mellitus with other specified complication, with long-term current use of insulin ([facility]) (Primary Dx); Anemia of chronic renal failure, stage 3a (CMS/[facility]); Candidiasis; Acute right-sided low back pain without sciatica; Venous stasis; Hyperlipidemia, unspecified hyperlipidemia type; Primary hypertension 07/03/2025 Patient Outreach [facility] [address] [place] [address] [phone] Hazel Kilgore MD Care Coordination ([facility] outreach for [facility]-patient declined to participate ) 07/03/2025 Travel 06/30/2025 Telephone [facility] [address] [place] [address] [phone] Hazel Kilgore MD CHART PREP 06/29/2025 Telephone [facility] [address] [place] [address] [phone] Hazel Kilgore MD 06/19/2025 Refill [facility] [address] [place] [address] [phone] Hazel Kilgore MD Bilateral impacted cerumen 06/15/2025 Refill [facility] [address] [place], [place] [id number] Hazel Kilgore MD Iron deficiency 06/13/2025 Refill [facility] [address] [place] [address] [phone] Hazel Kilgore MD Gastroesophageal reflux disease, unspecified whether esophagitis present; Renal osteodystrophy; Type 2 diabetes mellitus with other specified complication, with long-term current use of insulin ([facility]) 06/11/2025 Refill [facility] [address] [place] [address] [phone] Hazel Kilgore MD Constipation, unspecified constipation type 05/27/2025 Refill [facility] [address] [place] [address] [phone] Hazel Kilgore MD Diarrhea, unspecified type 05/19/2025 Refill [facility] [address] [place] [address] Hazel Kilgore MD Iron deficiency 05/15/2025 Telephone [facility] [address] [place] [address] [phone] Hazel Kilgore MD Durable Medical Equipment ([facility] DME Request) 04/19/2025 Refill [facility] [address] [place] [address] Hazel Kilgore MD Type 2 diabetes mellitus with other specified complication, with long-term current use of insulin ([facility]); Iron deficiency 04/19/2025 Refill [facility] [address] [place] [address] Kathy Pinzon ANP Iron deficiency 04/17/2025 Telephone [facility] [address] [place] [address] [phone] Hazel Kilgore MD Lab Orders 04/14/2025 Refill [facility] [address] [place], [place] [phone] Hazel Kilgore MD Constipation, unspecified constipation type from Last 3 Months Immunizations Immunization Administration Dates Next Due Hep B, adult [...] housing situation today? I have luan yoon 07/03/[address] you li ve. Do you have problems with any of the following? None of the above 07/03/2025 Food Insecurity Answer Date Recorded Within the past 12 months, y ou worried that your food would run out before you got money to buy more: Never True 07/03/2025 Within the past 12 months,th e food you bought just didn't last and you didn't have enough money to get more: Never True Transportation Answer Date Recorded In the past 12 months, has l ack of transportation kept you from medical appts, meetings, work or from getting things needed for daily living? No 07/03/2025 Utilities Answer Date Recorded In the past 12 months, has t he electric, gas, oil or water company threatened to shut off services in your home? No 07/03/2025 Depression Answer Date Recorded Patient Health Questionnaire-2 Score 0 07/03/2025 Internet Access Answer Date Recorded Internet Access Q1 Yes 07/03/2025 Internet Access Q2 Not on file 07/03/2025 Comments Unknown Sex and Gender Information Value Date Recorded Sex Assigned at Female 09/08/2022 10:19 AM EDT Legal Sex Female 10:19 AM EDT Gender Identity Female 09/08/2022 10:19 AM EDT Sexual Orientation Straight 09/08/2022 10 :19 AM EDT Last Filed Vital Signs Vital Sign Reading Time Taken Comments Blood Pressure 120/39 07/03/2025 11:25 AM EDT Pulse 76 01/10/2025 11:03 AM EST Temperature 36.7 C (98.1 F) 07/03/2025 11:25 AM EDT Respiratory Rate 14 07/03/2025 11:25 AM EDT Oxygen Saturation 93% 01/10/2025 11:03 AM EST Inhaled Oxygen Concentration - - Weight 76.7 kg (169 lb) 07/03/2025 11:25 AM EDT Height 157.5 cm (5' 2 ) 11/21/2024 10:34 AM EST Body Mass Index 30.91 11/21/2024 10:34 AM EST Plan of Treatment Health Maintenance Due Date Last Done Comments COVID-19 Vaccine ( season) 2025 11/21/2024, 12/03/2023, 09/19/2021, Additional history exists Influenza Vaccine (#1) 2025 , 07/26/2024, 08/12/2023, Additional history exists Diabetes: Hemoglobin A1C 09/30/2025 025, 01/10/2025, 11/21/2024, Additional history exists Alcohol/Substance Use Screening 11/21/2025 11/21/2024 Diabetes: Foot Exam 11/21/2025 11/21/2024, 11/21/2024, 11/21/2024, Additional history exists Lipid Panel 01/10/2026 01/10/2025, 07/10, 08/13/2023, Additional history exists Eye Exam 04/22/2026 04/22/2024, 11/30/2013 Diabetes: Urine Protein Screening 06/30/2026 06/30/2025, 01/10/2025, 07/21/2024, Additional history exists Depression Screening 07/03/2026 07/03/2025, 11/21/19 SDOH Screening 07/03/2026 07/03/2025 Tobacco Screening 07/03/2026 07/03/2025 DTaP/Tdap/Td Vaccines (4 - Td or Tdap) 08/25/2032 08/25/2022, 03/09/2019, 07/08/2012, Additional history exists Hepatitis B Vaccines Completed 09/22/2014, 10/19/2009, 09/17/2009 Pneumococcal Vaccine: 50+ Years Completed 09/12/2015, 05/04/2014, 01/02/2012, Additional history exists Zoster Vaccines Completed 03/28/2022, 01/07, 09/22/2014 RSV Patients and Patients Aged 60 years or older Completed 07/21/2024 HIB Vaccines Aged Out No [...] Procedure Name Priority Date/Time Associated Diagnosis Comments XR LUMBAR SPINE 2-3 VIEWS Routine 07/03/2025 11:28 AM EDT Acute right-sided low back pain without sciatica FERRITIN Routine 06/30/2025 8:51 AM EDT Anemia of chronic renal failure, stage 3a (CMS/HCC) BASIC METABOLIC PANEL Routine 06/30/2025 8:51 AM EDT Type 2 diabetes mellitus with other specified complication, with long-term current use of insulin (CMS/HCC) HEMOGLOBIN A1C Routine 06/30/2025 8:51 AM EDT Type 2 diabetes mellitus with other specified complication, with long-term current use of insulin (CMS/HCC) HEPATIC FUNCTION PANEL Routine 06/30/2025 8:51 AM EDT Type 2 diabetes mellitus with other specified complication, with long-term current use of insulin (CMS/HCC) ALBUMIN, RANDOM URINE W/CREATININE Routine 06/30/2025 8:51 AM EDT Type 2 diabetes mellitus with other specified complication, with long-term current use of insulin ([facility]) CT ABDOMEN PELVIS W CONTRAST Routine 04/17/2025 2:01 PM EDT LIPID PANEL, STANDARD Routine 01/10/2025 11:39 AM EST Type 2 diabetes mellitus with other specified complication, with long-term current use of insulin ([facility]) DIABETES EYE EXAM Routine 04/22/2024 3:23 PM EDT from Last 3 Months or Most Recently Relevant to Health Maintenance Results * XR Lumbar Spine 2-3 Views (07/03/2025 11:28 AM EDT) Anatomical Region Laterality Modality Spine, L-spine Radiographic Jennifer ging 07/03/2025 11:2 8 AM EDT Narrative 07/03/2025 12:34 PM EDT [place] [address] XRay Report Signed Patient: Mary Giles MR#: [id number] : 1945 Acct:[id number] Age/Sex: 80 / F ADM Date: 07/03/25 Loc: .[facility] Attending Dr: Hzael Kilgore MD Ordering Physician: Hazel Kilgore MD Date of Service: 07/03/25 Procedure(s): XR lumbar spine 2-3V Accession Number(s): [id number] cc: Hazel Kilgore MD EXAMINATION: XR LUMBOSACRAL SPINE CLINICAL INFORMATION: acute right sided low back pain COMPARISON: Correlated to CT dated September 11, 2020. TECHNIQUE: AP and lateral views FINDINGS: Multilevel marginal osteophyte formation and endplate sclerosis with incomplete ankylosis from L2 to L5. Vacuum phenomenon at L1-2. No acute cortical disruption or gross malalignment. Levoconvex curvature apex at L3. Spinal canal neurostimulator device overlapping the left iliac crest with electrode leads in the posterior aspect of the lower back and and draining in the lower thoracic spine level no fully included in the [id number]. Punctate radiopaque material within the large intestine from recent exam. Sclerosis in the sacroiliac joints and the articular surface of the symphysis bruits. Mild degenerative changes in the coxofemoral joints. Vascular clips in the lower retroperitoneum/pelvic region. 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 Electronically signed by: Angel Hayes MD 07/03/2025 12:31 PM EDT RP Dictated By: Angel Dempsey MD Signed By: <Electronically signed by Angel Norris MD in OV> 07/03/25 1231 DD/ 1128 TD/TT: 07/03/25 1200 It Network Architect: Procedure Note Donotuseinterpreter, Image - 07/03/[address] [address] XRay Report Signed Patient: Gaetano Giles#: [id number] : 3Acct:[id number] Age/Sex: 80 / FADM Date: 07/03/25 Loc: HO.[facility]CL Attending Dr: Hazel Kilgore MD Ordering Physician: Hazel Kilgore MD Date of Service: 07/03/25 Procedure(s): XR lumbar spine 2-3V Accession Number(s): [id number] cc: Hazel Kilgore MD EXAMINATION: XR LUMBOSACRAL SPINE CLINICAL INFORMATION: acute right sided low back pain COMPARISON: Correlated to CT dated September 11, 2020. TECHNIQUE: AP and lateral views FINDINGS: Multilevel marginal osteophyte formation and endplate sclerosis with incomplete ankylosis from L2 to L5. Vacuum phenomenon at L1-2. No acute cortical disruption or gross malalignment. Levoconvex curvature apex at L3. Spinal canal neurostimulator device overlapping the left iliac crest with electrode leads in the posterior aspect of the lower back and and draining in the lower thoracic spine level no fully included in the [id number]. Punctate radiopaque material within the large intestine from recent exam. Sclerosis in the sacroiliac joints and the articular surface of the symphysis bruits. Mild degenerative changes in the coxofemoral joints. Vascular clips in the lower retroperitoneum/pelvic region. 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 Electronically signed by: Angel Hayes MD 07/03/2025 12:31 PM EDT RP Dictated By: Angel Dempsey MD Signed By: <Electronically signed by Angel Norris MDin OV> 07/03/25 1231 DD/ 1128 TD/TT: 07/03/25 1200 It Network Architect: Hazel Kilgore MD IMG XR PROCEDURES Final Re sult * Albumin, Random Urine W/Creatinine (06/30/2025 8:51 AM EDT) Creatinine, Urine 56.45 mg/dL [facility] Microalbumin Urine 13.0 mg/L [facility] Microalbum Creatinine Ratio Ur 23.0 <30 ug/mg cr [facility] Comment:Albumin/Creatinine R atio Reference Ranges: Normal: < 30 ug/mg creatinine Microalbuminuria: 30 - 300 ug/mg creatinineClinical Albuminuria: > 300 ug/mg creatinine Urine 06/30/2025 8:51 AM EDT 06/30/2025 11:49 AM EDT Hazel Kilgore MD LAB URINE ORDERABLES Final Result [facility] [address] [place] [phone] * (ABNORMAL) Hemoglobin A1c (06/30/2025 8:51 AM EDT) Hemoglobin A1c 7.9(H) <6.0 % [facility] Comment:Hemoglobin A1C Refer ence Range Adults: 4.8 - 6.0 % Non diabetic: < 6.0 % Goal: < 7.0 %Additional Action Suggested: > 8.0 %Note: Hemoglobin A1c results are invalid for patients with abnormal amounts of HbF. Blood transfusions may impact the HbA1c concentration in the patient sample. Estimated Average Glucose 180 mg/dL [facility] Comment:eAG = Estimated ave rage glucose which is %A1C expressed asaverage glucose, using the formula of the [id number]-OgcmsslPvfjvvw Glucose study (ADAG), Diabetes Care, Vol.31,#8,2007 Blood Venous blood specimen / Unknown 06/30/2025 8:51 AM EDT 06/30/2025 11:54 AM EDT Hazel Kilgore MD LAB BLOOD ORDERABLES Final Result Performing Organization Address [facility] Co de Phone Number [facility] [address] [place] [phone] * (ABNORMAL) Ferritin (06/30/2025 8:51 AM EDT) Ferritin 736(H) 10 - 250 ng/mL [facility] Blood Venous blood specimen / Unknown 06/30/2025 8:51 AM EDT 06/30/2025 11:54 AM EDT Hazel Kilgore MD LAB BLOOD ORDERABLES Final Result Performing Organization Address [facility] Co de Phone Number [facility] [address] [place] [phone] * (ABNORMAL) Hepatic Function Panel (06/30/2025 8:51 AM EDT) Bilirubin, Total 0.2 0.0 - 1.0 mg/dL [facility] Bilirubin, Direct <0.2 0.0 - 0.5 mg/dL [facility] Aspartate Amino Transferase 35(H) 5 - 31 U/L [facility] Alanine Aminotransferase 37(H) 0 - 31 U/L [facility] Total Protein 7.1 6.5 - 8.0 g/dL [facility] Albumin Level 4.0 3.5 - 5.0 g/dL [facility] Alkaline Phosphatase 66 39 - 117 U/L [facility] Blood Venous blood specimen / Unknown 06/30/2025 8:51 AM EDT 06/30/2025 11:54 AM EDT Hazel Kilgore MD LAB BLOOD ORDERABLES Final Result [facility] [address] [place] [phone] * (ABNORMAL) Basic Metabolic Panel (06/30/2025 8:51 AM EDT) Sodium 146(H) 135 - 145 mmol/L [facility] Potassium 4.7 3.3 - 5.1 mmol/L [facility] Chloride 108 96 - 108 mmol/L [facility] Carbon Dioxide 32(H) 22 - 29 mmol/L [facility] Anion Gap 11(L) 12 - 20 [facility] Urea Nitrogen (BUN) 26(H) 9 - 16 mg/dL [facility] Creatinine, Serum 1.15 0.5 - 1.4 mg/dL [facility] Estimated Glomerular Filt Rate 45 [facility] Comment:Chronic Kidney Disea se: Estimated GFR < 60 mL/min/1.76u9Rqovte Kidney Disease: Estimated GFR < 15 mL/min/1.73m2 Glucose 88 60 - 115 mg/dL [facility] Calcium 9.1 8.4 - 10.2 mg/dL [facility] Blood Venous blood specimen / Unknown 06/30/2025 8:51 AM EDT 06/30/2025 11:54 AM EDT Hazel Kilgore MD LAB BLOOD ORDERABLES Final Result [facility] [address] [place] [phone] * CT Abdomen Pelvis w/ Contrast (04/17/2025 2:01 PM EDT) Anatomical Region Laterality Modality Body, Pelvis, Abdomen Computed T omography 04/17/2025 2:01 PM EDT Narrative 04/17/2025 2:01 PM EDT [address] [address] [address] Scan Report Signed Patient: Mary Giles MR#: [id number] : 1945 Acct:[id number] Age/Sex: 79 / F ADM Date: 04/14/25 Loc: HO.CT Attending Dr: Aaron Almazan MD Ordering Physician: Aaron Almazan MD Date of Service: 04/14/25 Procedure(s): CT abdomen pelvis w IV con Accession Number(s): [id number] cc: Hazel Kilgore MD; Aaron Almazan MD Report Number: [id number]: Total DLP = 590.00 mGy-cm CLINICAL HISTORY: [...] strangulation nor obstruction. Bilateral proximal hamstring calcifications, cmib-[id number]-rcds-right. Normal appendix. No acute fracture. Multilevel disc [...] OV> 04/17/25 1401 DD/ 1401 TD/TT: 04/17/25 140 It Network Architect: Procedure Note Donotuseinterpreter, Image - 04/17/[address] [place] [address] [address] Scan Report Signed Patient: Gaetano Giles#: [id number] : 3Acct:[id number] Age/Sex: 79 / FADM Date: 04/14/25 Loc: HO.CT Attending Dr: Aaron Almazan MD Ordering Physician: Aaron Almazan MD Date of Service: 04/14/25 Procedure(s): CT abdomen pelvis w IV con Accession Number(s): [id number] cc: Hazel Kilgore MD; Aaron Almazan MD Report Number: [id number]: Total DLP = 590.00 mGy-cm CLINICAL HISTORY: [...] strangulation nor obstruction. Bilateral proximal hamstring calcifications, nqin-wwpxlvt-panr-right. Normal appendix. No acute fracture. Multilevel disc [...] signed by Sarika Diamond MD in OV> 04/17/251400 DD/ 00 TD/TT: 04/17/251400 It Network Architect: [facility] External Provider IMG CT PROCEDURES Edited Result - Final * Lipid Panel, Standard (01/10/2025 11:39 AM EST) Triglycerides 81 <150 mg/dL [facility] Comment:Desirable Triglyceri de: less [...] 190 mg/dL HDL Cholesterol 47 >40 mg/dL [facility] Comment:Desirable HDL: great er than 40 mg/dL Note: This HDL assay may give artificially low results in patients with liver disease. Blood Venous blood specimen / Unknown 01/10/2025 11:39 AM EST 01/10/2025 1:12 PM EST Hazel Kilgore MD LAB BLOOD ORDERABLES Final Result [facility] [address] [place] [address] [phone] * Diabetes Eye Exam (04/22/2024 3:23 PM EDT) Eye Exam Normal Normal Comment:follow up one year us Historical Provider HEALTH MAINTENANCE Final Result from Last 3 Months or Most Recently Relevant to Health Maintenance [facility] [place] MICHELLE [id number] Advance Directives Documents on File Type Date Recorded Patient Account Manager Education Expl anation Advance Directives and Livin g Will 12/15/2023 Health Care Proxy Care Teams Special Education Curriculum Specialist Relationship Specialty Start Date End Date Hazel Kilgore MD [address] [place] [phone] PCP - General Family Medicine 11/09/18 Tee Shay MD [address] [place] [phone] Nephrology 11/07/24 Nia Borja [address] [place] [address] Cardiology 11/07/24 Mary Ann Matthew [place] [facility] Endocrinology [address] [facility] Endocrinology 10/14/24 Derrick Mullen, DPVannesa [address] [place] [address] Podiatry 11/07/24
--- OUTSIDE RECORDS SUMMARY | 2025-07-13 13:22 | XMS_ITS | Encounter Summary ---
Author Organization [employer] Address [address] [facility] 7t [place] [address] Care Team Providers Care Director Of Curriculum Name Role Phone Hazel Kilgore MD Primary Care Provider [phone] Tee Shay MD Unavailable [phone] Nia Borja Unavailable [phone] Reason for Visit * Reason Onset Date Comments Call Back Request 02/28/2025 Encounter Details Date Type Department Care Team (Late st Contact Info) Description 02/28/2025 Telephone [facility] MEDICINE [address] [place], [place] [phone] Hazel Kilgore MD [address] [place], [place] [phone] Call Back Request Social History Tobacco Use [...] pt if anything more urgent comes up. Ceramic Engineer verbalized understanding. * Telephone Encounter - Melody Dawn - 02/28/2025 2:10 PM EDT Tc from Shivani with [facility] informing pt been having chronic diarrhea and will like to now if PCP has sent pt to get done the C-Diff test. Please return call to shivani for clarifications [phone] documented in this encounter Plan of Treatment Not on file documented as of this encounter Visit Diagnoses Not on filedocumented in this encounter Additional Health Concerns Assessment Noted Time PHQ-9 Depression Total Score: 0 11/21/19 25 10:37 AM EST documented as of this encounter Care Teams Director Of Curriculum Relationship Specialty Start Date End Date Hazel Kilgore MD [address] [place] [address] PCP - General Family Medicine 11/09/18 Tee Shay MD [address] [place] [phone] Nephrology 11/07/24 Nia Borja 33[address] [facility] [address] [place] [address] Cardiology 11/07/24 Mary Ann Matthew MA [facility] Endocrinology [address] [facility] Endocrinology 10/14/24 Derrick Mullen, DPM 175 [place] [address] Podiatry 11/07/24 documented as of this encounter
--- OUTSIDE RECORDS SUMMARY | 2025-07-13 13:22 | XMS_ITS | Encounter Summary ---
Author Organization [employer] Address [address] [facility] [address] 7t [place] [address] Care Team Providers Care Heel Sewer Name Role Phone Hazel Kilgore MD Primary Care Provider [phone] Tee Shay MD Unavailable [phone] Nia Borja Unavailable Encounter Details Date Type Department Care Team (Late st Contact Info) Description 08/20/2023 Orders Only [facility] MEDICINE 230 [place], [place] [phone] Hazel Kilgore MD [address] [place], [place] [phone] Social History Tobacco Use Types Packs/Day Years [...] documented as of this encounter Care Teams Heel Sewer Relationship Specialty Start Date End Date Hazel Kilgore MD [address] [place] [address] PCP - General Family Medicine 11/09/18 Tee Shay MD [address] [place] [address] Nephrology 11/07/24 Nia Borja 33[address] [facility] [address] [place] [address] Cardiology 11/07/24 Mary Ann Matthew MA [facility] Endocrinology 3300 [facility] Endocrinology 10/14/24 Derrick Mullen, DPM 175 [place] [address] Podiatry 11/07/24 documented as of this encounter
--- OUTSIDE RECORDS SUMMARY | 2025-07-13 13:22 | XMS_ITS | Encounter Summary ---
Author Organization [employer] Address [address] [facility] 7t [place] [address] Care Team Providers Care Mechanical Manufacturing Engineer Name Role Phone Hazel Kilgore MD Primary Care Provider [phone] Tee Shay MD Unavailable [phone] Nia Borja Unavailable [phone] Reason for Visit * Reason Onset Date Comments Med Refill 06/20/2024 Encounter Details Date Type Department Care Team (Late st Contact Info) Description 06/20/2024 Telephone [facility] MEDICINE 230 [place], [place] [phone] Hazel Kilgore MD 230 [place], [place] [phone] Med Refill Social History Tobacco Use Types [...] MG DR capsule To be sent to: [facility] - [place], [place] - [address] [place] [address] documented in this encounter Plan of Treatment Not on file documented as of this encounter Visit Diagnoses Not on filedocumented in this encounter Additional Health Concerns Assessment Noted Time PHQ-9 Depression Total Score: 0 07/03/20 23 9:07 AM EDT documented as of this encounter Care Teams Mechanical Manufacturing Engineer Relationship Specialty Start Date End Date Hazel Kilgore MD 230 [facility] [place] [address] PCP - General Family Medicine 11/09/18 Tee Shay MD 100 [facility] [address] [place] [address] Nephrology 11/07/24 Nia Borja [address] [place] [address] Cardiology 11/07/24 Mary Ann Matthew [facility] Endocrinology 3300 [facility] Endocrinology 10/14/24 Derrick Mullen, DPVannesa 175 [place] [address] Podiatry 11/07/24 documented as of this encounter
--- OUTSIDE RECORDS SUMMARY | 2025-07-13 13:22 | XMS_ITS | Encounter Summary ---
Author Organization [employer] Address [address] [facility] [address] [place] [address] Care Team Providers Care Piledriver Carpenter Name Role Phone Sullivan, Hazel FELIPE Primary Care Provider [phone] Tee Shay MD Unavailable [phone] Nia Borja Unavailable [phone] Reason for Visit * Reason Comments Med Refill Encounter Details Date Type Department Care Team (Late st Contact Info) Description 08/13/2023 Refill [facility] [address] [place], [place] [phone] Mireya Vasquez MD 230 [place] [address] Social History Tobacco Use Types Packs/Day Years [...] documented as of this encounter Care Teams Piledriver Carpenter Relationship Specialty Start Date End Date Hazel Kilgore MD [address] [place] [address] PCP - General Family Medicine 11/09/18 Tee Shay MD 100 [facility] 200 [place] [address] Nephrology 11/07/24 Nia Borja 3300 [facility] [address] [place] [address] Cardiology 11/07/24 Mary Ann Matthew [place] [facility] Endocrinology 3300 [facility] Endocrinology 10/14/24 Derrick Mullen, MADIHA [address] [place] [address] Podiatry 11/07/24 documented as of this encounter
--- OUTSIDE RECORDS SUMMARY | 2025-07-13 13:22 | XMS_ITS | Encounter Summary ---
Author Organization [employer] Address [address] [facility] [address] [place] [address] Care Team Providers Care Music Instructor Name Role Phone Hazel Kilgore MD Primary Care Provider [phone] Tee Shay MD Unavailable [phone] Nia Borja Unavailable Reason for Visit * Reason Comments Med Refill Encounter Details Date Type Department Care Team (Late st Contact Info) Description 08/19/2023 Refill [facility] [address] [place], [place] [phone] Hazel Kilgore MD [address] [place] [address] Social History Tobacco Use Types Packs/Day Years [...] documented as of this encounter Care Teams Music Instructor Relationship Specialty Start Date End Date Hazel Kilgore MD [address] [place] [address] PCP - General Family Medicine 11/09/18 Tee Shay MD 100 [facility] 200 [place] [phone] Nephrology 11/07/24 Nia Borja 3300 [facility] [address] [place] [address] Cardiology 11/07/24 Mary Ann Matthew [place] [facility] Endocrinology 3300 [facility] Endocrinology 10/14/24 Derrick Mullen, MADIHA 175 [place] [address] Podiatry 11/07/24 documented as of this encounter
--- OUTSIDE RECORDS SUMMARY | 2025-07-13 13:22 | XMS_ITS | Encounter Summary ---
Author Organization [facility] Address [address] [phone] Phone Care Team Providers Care Concrete Laborer Name Role Phone Hazel Kilgore MD Primary Care Provider U eddwaine Encounter Details Date Type Department Care Team ([facility] Contact Info) Description 07/10/2025 Orders Only [facility] [address] [phone] Amaya Edgar ARNP [address] [address] Stage 3b chronic kidney disease (HCC); Benign hypertensive renal disease Social History Tobacco Use Types Packs/Day Years [...] on file documented as of this encounter Plan of Treatment Upcoming Encounters Date Type Department Care Team (Late st Contact Info) Description 11/30/2025 1:00 PM EST Office Visit [facility] [address] [place] [address] Tee Shay MD [address] [address] documented as of this encounter Visit Diagnoses Diagnosis Stage 3b chronic kidney disease (HCC) Benign hypertensive renal disease documented in this encounter Care Teams Concrete Laborer Relationship Specialty Start Date End Date Hazel Kilgore MD 230 [place] [address] PCP - General 11/19/20 documented as of this encounter
--- OUTSIDE RECORDS SUMMARY | 2025-07-13 13:22 | XMS_ITS | Encounter Summary ---
Author Organization [employer] Address [address] 7t [place] [address] Care Team Providers Care Certified Public Accountant Name Role Phone Hazel Kilgore MD Primary Care Provider [phone] Tee Shay MD Unavailable [phone] Nia Borja Unavailable [phone] Reason for Visit * Reason Onset Date Comments Referral 09/04/2023 Encounter Details Date Type Department Care Team (Late st Contact Info) Description 09/04/2023 Telephone [facility] MEDICINE [address] [place], [place] [phone] Hazel Kilgore MD [address] [place], [place] [phone] Referral Social History Tobacco Use Types Packs/Day [...] Podiatry specialist. [facility] Address [address] [place] [address] documented in this encounter Plan of Treatment Not on file documented as of this encounter Visit Diagnoses Not on filedocumented in this encounter Additional Health Concerns Assessment Noted Time PHQ-9 Depression Total Score: 0 07/03/20 23 9:07 AM EDT documented as of this encounter Care Teams Certified Public Accountant Relationship Specialty Start Date End Date Hazel Kilgore MD [address] [place] [address] PCP - General Family Medicine 11/09/18 Tee Shay MD [address] [address] Nephrology 11/07/24 Nia Borja [address] [place] [address] Cardiology 11/07/24 Mary Ann Matthew MA [facility] Endocrinology 3300 [facility] Endocrinology 10/14/24 Derrick Mullen, MADIHA [address] [place] [address] Podiatry 11/07/24 documented as of this encounter
--- OUTSIDE RECORDS SUMMARY | 2025-07-13 13:22 | XMS_ITS | Patient Health Record ---
Author Organization [facility] Address [address] [place] [address] Care Team Providers Care Assistant Professor Of Anthropology Name Role Phone Hazel Kilgore MD Primary Care Provider Diana Aaron Rodriguez Unavailable [phone] Allergies No Known Allergies Results Component Value Reference Range Notes Complete Blood Count Auto Di ff Reviewed date:04/01/2025 10:14:05 PM Interpretation: Performing Lab:[facility], [address] [place] [phone] Notes/Report: White Blood Count 5.8 4.8-10.8 X10*3/uL [...] te Reviewed date:03/20/2025 11:35:44 PM Interpretation: Performing Lab:[facility], [address] [place] [address] Notes/Report: Erythrocyte Sedimentation Rate 29 0-20 MM/HR Patients with polycythemia and many hemoglobin abnormalities may have depressed sed rates whereas patients with anemia may have elevated sed rates. C Reactive Protein Reviewed date:03/20/2025 11:35:35 PM Interpretation: Performing Lab:[facility], [address] [place] [address] Notes/Report: C Reactive Protein 0.34 < or = 0.50 mg/dL Thyroid Stimulating Hormone Reviewed date:03/20/2025 11:35:04 PM Interpretation: Performing Lab:[address] [address] Notes/Report: Thyroid Stimulating Hormone 2.38 0.32-4.0 uIU/ mL TSH 3rd Generation ([facility]) Celiac Disease Panel Reviewed date:03/25/2025 06:42:58 PM Interpretation: Performing Lab:[address] [address] Notes/Report: Immunoglobulin A 210 70-320 mg/dL THIS TEST WAS PERFORMED AT: [facility] [address] [address] MARIUSZ FINN MD Transglutaminase IgA <1.0 Value [...] y et reviewed by provider) Interpretation: Performing Lab:[facility], [address] [place] [address] Notes/Report: Pancreatic Elastase-1 184 >200 mcg/g E-1 mcg/g feces Interpretation <100 Severe exocrine pancreatic insufficiency 100-200 Mild to moderate exocrine pancreatic insufficiency >200 Normal THIS TEST WAS PERFORMED AT: [facility] [address] [place] [address] MARY GREEN MD,PHD,BENJAMIN Fecal Fat Qualitative Reviewed date:03/31/2025 06:54:54 PM Interpretation: Performing Lab:[facility], [address] [place] [address] Notes/Report: Fecal Fat Qualitative Normal Normal THIS TEST WAS PERFORMED AT: [facility]/[address] [address] LY CRUZ MD,PHD Chymotrypsin, Stool Reviewed date:06/04/2025 10:37:15 PM Interpretation: Performing Lab:[address] [address] Notes/Report: Chymotrypsin, Stool 1.0 2.3-51.4 U/g This test was developed and its analytical performance characteristics have been determined by [facility]. It has not been cleared or approved by the FDA. This assay has been validated pursuant to the CLIA regulations and is used for clinical purposes. THIS TEST WAS PERFORMED AT: [facility] [address] [place] [address] MARY GREEN MD,PHD,BENJAMIN Calprotectin, Fecal Reviewed date:04/06/2025 11:06:25 PM Interpretation: Performing Lab:[address] [address] Notes/Report: Calprotectin, Fecal 355 Reference Range: <50 [...] borderline values. THIS TEST WAS PERFORMED AT: [facility] [address] [place] [address] MARY GREEN MD,PHD,BENJAMIN Electrolytes Reviewed date:04/13/2025 12:35:58 PM Interpretation: Performing Lab:[facility], [address] [place] [address] Notes/Report: Sodium 142 135-145 mmol/L Potassium 4.6 3.3-5.1 mmol/L Chloride 105 96-108 mmol/L Carbon Dioxide 31 22-29 mmol/L Anion Gap 11 12-20 Blood Urea Nitrogen Reviewed date:04/13/2025 12:35:43 PM Interpretation: Performing Lab:[facility], [address] [place] [address] Notes/Report: Blood Urea Nitrogen 30 9-16 mg/dL Creatinine Reviewed date:04/13/2025 12:35:33 PM Interpretation: Performing Lab:[facility], [address] [place] [address] Notes/Report: Creatinine 1.30 0.5-1.4 mg/dL Estimated Glomerular Filt Rate 39 Chronic Kidney Disease: Estimated GFR < 60 mL/min/1.73m2 Severe Kidney Disease: Estimated GFR < 15 mL/min/1.73m2 CT abdomen pelvis w con Reviewed date:04/25/2025 12:45:09 AM Interpretation: Performing Lab: Notes/Report: [address] [place] [address] CT Scan Report Signed Patient: Inna Giles MR#: [id number] : 1945 Acct:[id number] Age/Sex: 79 / F ADM Date: 04/14/25 Loc: HO.CT Attending Dr: Aaron Almazan MD Ordering Physician: Aaron Almazan MD Date of Service: 04/14/25 Procedure(s): CT abdomen pelvis w IV con Accession Number(s): [id number] cc: Hazel Kilgore MD; Aaron Almazan MD Report Number: [id number]: Total DLP = 590.00 mGy-cm CLINICAL HISTORY: [...] strangulation nor obstruction. Bilateral proximal hamstring calcifications, [id number]. Normal appendix. No acute fracture. 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 For Referral No Information Medications Medication SIG (Take, Route, Frequency, Duration) Notes Start Date End Date Status Metoprolol Succinate 25 MG 1 capsule Orally Once a day Active NovoLOG FlexPen 100 UNIT/ML INJECT 0-4 UNITS BEFORE BREAKFAST, INJECT 12-14 UNITS BEFORE LUNCH, AND INJECT 14-16 UNITS BEFORE SUPPER Subcutaneous for 39 Activ e amLODIPine Besylate 5 MG TAKE 1 TABLET B Y MOUTH EVERY DAY Oral for 90 Active Calcium 500 MG 1 tablet with meals Orally Twice a day Active Gabapentin 600 MG TAKE 1 TABLET THREE TIMES DAILY IN THE MORNING, EVENING, AND BEDTIME Oral for 30 Active Eliquis 5 MG as directed Orally Active Ferrous Sulfate 325 (65 Fe) MG TAKE 1 TABLET THREE TIMES DAILY IN THE MORNING, AT NOON, AND IN THE EVENING Oral for 30 Active Farxiga 10 MG 1 tablet Orally Once a day Active Senna 8.6 MG TAKE 2 TABLETS EVERY DAY AT BEDTIME Oral for 30 Active Omeprazole 20 MG TAKE 1 CAPSULE EVERY MORNING WITH A MEAL Oral for 30 Active Isosorbide Mononitrate ER 30 MG TAKE 1 TABLET EVERY MORNING Oral for 30 Active Vitamin C 500 MG TAKE 1 TABLET TWICE DAILY IN THE MORNING AND IN THE EVENING Oral for 30 Active Basaglar KwikPen 100 UNIT/ML INJECT 42 UNITS SUBCUTANEOUSLY AT BEDTIME Subcutaneous for 34 Active SM Aspirin Adult Low Strength 81 MG TAKE 1 TABLET EVERY MORNING Oral for 30 Active Furosemide 40 MG TAKE 1 TABLET TWICE DAILY IN THE MORNING AND IN THE EVENING Oral for 90 Active Rosuvastatin Calcium 20 MG TAKE 1 TABLET AT BEDTIME Oral for 30 Active Calcium Carbonate-Vitamin D 600-400 MG-UNIT TAKE 1 TABLET TWICE DAILY IN THE MORNING AND IN THE EVENING Oral for 30 Active Doxazosin Mesylate 4 MG TAKE 1 TABLET EV MARIA ESTHER MORNING Oral for 30 Active Immunizations Vaccine Route Administration Date Status [...] no sig. alcohol Nonsmoker; no sig. alcohol Nonsmoker; no sig. alcohol Problems Problem Type SNOMED Code ICD Code Onset Dates Problem Status W/U Status Risk Notes Problem 300023817 Encounter for screening for malignant neoplasm of colon (Z12.11) Active confirmed Problem Diarrhea (97641722) Diarrhea (R19.7) Active confirmed Problem 972178655 Long-term use of aspirin therapy (Z79.82) Active confirmed Problem 55745591 Constipation, unspecified constipation type (K59.00) Active confirmed Problem Pancreatic insufficiency (07015057) Pancreatic insufficiency (K86.89) Active confirmed Vital Signs Temperature 97.3 degrees Fahrenheit 07/06/2025 Blood pressure diastolic 01 mm Hg 07/06/2025 Height 62 in 07/06/2025 Blood pressure systolic 001 mm Hg 07/06/2025 Weight 170 lbs 07/06/2025 BMI 31.09 kg/m2 07/06/2025 Encounters Encounter Location Date Provider Diagnosis [facility] [address] [place] [phone] 07/06/2025 Aaron Almazan Diarrhea R19.7 [facility] [address] [place] [phone] 03/17/2025 Aaron Almazan Diarrhea R19.7 and Weight loss R63.4 [facility] [address] [place] [phone] 02/28/2025 Aaron Almazan [facility] [address] [place] [phone] 03/31/2025 Aaron Almazan Diarrhea R19.7 and Pancreatic [...] colonoscopies with the most recent one in 2020. I have advised her to continue to [...] of any further assistance in the future. 03/17/2025 Diarrhea (ICD-10 - R19.7) Continue to [...] Trulicity was just decreased yesterday by her engine setter I think it would be worthwhile to [...] Trulicity was just decreased yesterday by her engine setter I think it would be worthwhile to [...] Test Test Name Order Date COLONOSCOPY 09/14/2018 Insurance Providers Payer Name Payer Address Payer Phone Subscriber Number Group Number Insured Name Patient Relationship to Insured Coverage Start Date Coverage End Date [facility] [address] [place] [address] [id number] INNA SOLANO Self - patient is the insured Medical (General) History Medical History History ICD Code Stage 3 kidney disease--Dr. Shay IDDM Hx of uterine cancer--2016--surgery and chemo at [facility] COPD Back pain--scheduled for a pain stimulat or insertion for 10/2018 Negative colonoscopy in 2006 EGD in 2006--- questionable duodenal biopsies in regard to possible celiac disease, but celiac disease serologies were negative and she was never started on a gluten-free diet Neg SB capsule tudy in 2006--for eval of Iron def anemia HTN Hyperlipidemai urinary incontinence Denies IN or CVA She had a negative screening colonoscopy in October 2018 Negative upper endoscopy and colonoscopy [place] [address] Stark. Duodenal biopsies at that time were negative for celiac disease. Surgical History Surgery Date(Month/Year) NICOLAS Back pain stimulator being placed in 2017 NICOLAS--uterine cancer 2016
--- OUTSIDE RECORDS SUMMARY | 2025-07-13 13:22 | XMS_ITS | Encounter Summary ---
Author Organization [employer] Address [address] [facility] 7t [place] [address] Care Team Providers Care Scientific Investigator Name Role Phone Hazel Kilgore MD Primary Care Provider + [phone] Tee Shay MD Unavailable [phone] Nia Borja Unavailable [phone] Encounter Details Date Type Department Care Team ([facility] st Contact Info) Description 08/04/2023 Orders Only [facility] PEDS [address] [place] [address] Renata Lerner LPN Social History Tobacco Use [...] documented as of this encounter Care Teams Scientific Investigator Relationship Specialty Start Date End Date Hazel Kilgore MD [address] [place] [phone] PCP - General Family Medicine 11/09/18 Tee Shay MD [address] [place] [address] Nephrology 11/07/24 Nia Borja 3300 [facility] [address]LO[address] [place] [address] Cardiology 11/07/24 Mary Ann Matthew [place] [facility] Endocrinology 3300 [facility] Endocrinology 10/14/24 Derrick Mullen, DPVannesa 175 [place] [address] Podiatry 11/07/24 documented as of this encounter
--- OUTSIDE RECORDS SUMMARY | 2025-07-13 13:22 | XMS_ITS | Clinical Summary ---
Author Organization 175 [facility] Address [address] [place] [address] Phone Care Team Providers Care Cycling Instructor Name Role Phone Hazel Kilgore MD Primary Care Provider [phone] Allergies No known active allergies Medications ammonium [...] 10 days. 22 g 06/26/20 25 025 Encounters Date Type Department Care Team Description 06/26/2025 1:30 PM EDT Office Visit Orthopedic Surgery [address] [address] Derrick Mullen, DPM Controlled type 2 diabetes with neuropathy ([facility] V24, [facility] V28) (Primary Dx); Arthritis of both feet; PVD (peripheral vascular disease) ([facility] V24); Pain in toes of both feet; Dermatophytosis, nail; Non-pressure chronic ulcer of left ankle, limited to breakdown of skin ([facility] V24, [facility] V28) 04/24/2025 1:15 PM EDT Office Visit Orthopedic [address] [address] Derrick Mullen DPM Controlled type 2 diabetes with neuropathy ([facility] V24, [facility] V28) (Primary Dx); Localized swelling of both lower legs; Arthritis of both feet; PVD (peripheral vascular disease) ([facility] V24); Dermatophytosis, nail from Last 3 Months [...] PM EDT Office Visit Orthopedic Surgery - [place] [address] [phone] Derrick Mullen DPM [address] [address] Health Maintenance Due Date Last Done Comments [...] [facility] Annual BMP Blood Test Abstracted [facility] Provider HEALTH MAINTENANCE Final Result * Lipid panel (08/13/2023) [facility] LDL/HDL Ratio 0 Triglycerides 0 mg/dL Cholesterol 0 mg/dL HDL 0 mg/dL LDL Cholesterol 0 mg/dL Blood Venous blood specimen / Unknown Result [facility] Provider MD LAB BLOOD ORDERABLES Violet l Result * Hemoglobin A1c (01/17/2021) [facility] Hemoglobin A1C 0.0 % Blood Venous blood specimen / Unknown Result [facility] Provider LAB BLOOD ORDERABLES Violet l Result from Last 3 Months or Most Recently Relevant to Health Maintenance Insurance [facility] Member Subscriber Plan / Payer (Ef fective 2020-Present) Name:Inna Fontenot Relation to Subscriber:Self Name:Inna Giles Payer ID:[id number] Group ID:[id number] Type:Not on file Address: [address] [place] [address] MEDICAID - [place] Care Teams Cycling Instructor Relationship Specialty Start Date End Date Magui, MD Hazel [address] [place] [phone] PCP - General 10/13/23
--- OUTSIDE RECORDS SUMMARY | 2025-07-13 13:22 | XMS_ITS | Encounter Summary ---
Author Organization [employer] Address 75 [facility] 7t [place] [address] Care Team Providers Care Numerical Control Drill Press Operator Name Role Phone [place], Hazel FELIPE Primary Care Provider [phone] Tee Shay MD Unavailable [phone] Nia Borja Unavailable [phone] Reason for Visit * Reason Comments Med Refill Encounter Details Date Type Department Care Team ([facility] st Contact Info) Description 09/15/2024 Refill [facility] MEDICINE [address] [place] [address] Calli Trevizo MD [address] [place] [address] Gastroesophageal reflux disease, unspecified whether esophagitis present [...] documented as of this encounter Care Teams Numerical Control Drill Press Operator Relationship Specialty Start Date End Date Hazel Kilgore MD 230 [place] [address] PCP - General Family Medicine 11/09/18 Tee Shay MD 100 [facility] 200 [place] [address] Nephrology 11/07/24 Nia Borja 3300 [facility] [address]LO[address] [place] [address] Cardiology 11/07/24 Mary Ann Matthew [place] [facility] Endocrinology 3300 [facility] Endocrinology 10/14/24 Derrick Mullen, MADIHA 175 [place] [address] Podiatry 11/07/24 documented as of this encounter
--- OUTSIDE RECORDS SUMMARY | 2025-07-13 13:22 | XMS_ITS | Encounter Summary ---
Author Organization [facility] Address [address] [place] [address] Phone Care Team Providers Care Patient Account Analyst Name Role Phone Hazel Kilgore MD Primary Care Provider U catracho Encounter Details Date Type Department Care Team (Late st Contact Info) Description 03/24/2022 Telephone [facility] [address] [place] [address] Tee Shay MD 4[address] [facility] [address] [place] [address] Social History Tobacco Use Types [...] - 03/24/2022 11:28 AM EDT Renae from [facility] called she would like to know if an updated script for lasix 1 tablet in the AM can besent to [facility] pharmacy seeing as the pt has not been taking her PM dose due to frequent nighttime urination. Thank you documented in this encounter Plan of Treatment Upcoming Encounters Date Type Department Care Team (Late st Contact Info) Description 11/30/2025 1:00 PM EST Office Visit [facility] [address] [facility] [place] [address] Tee Shay MD [address] [facility] [address] [place] [address] documented as of this encounter Visit Diagnoses Not on filedocumented in this encounter Care Teams Patient Account Analyst Relationship Specialty Start Date End Date Hazel Kilgore MD 230 [facility] [place] [address] PCP - General 11/19/20 documented as of this encounter
--- OUTSIDE RECORDS SUMMARY | 2025-07-13 13:22 | XMS_ITS | Encounter Summary ---
Author Organization [facility] Address 100 [facility] 200 [place] [address] Phone Care Team Providers Care Hog Sticker Name Role Phone Hazel Kilgore MD Primary Care Provider U navailable Reason for Visit * Reason Comments Med Refill Encounter Details Date Type Department Care Team (Late st Contact Info) Description 04/24/2022 Refill [facility] [address] [facility] [address] [place] [address] Tee Shay MD [address] [facility] [address] [place] [address] Social History Tobacco Use Types [...] Visit [facility] [address] [facility] [address] Tee Shay MD [address] [facility] [address] [place] [address] documented as of this encounter Visit Diagnoses Not on filedocumented in this encounter Care Teams Hog Sticker Relationship Specialty Start Date End Date Hazel Kilgore MD [address] [place] [address] [place] [address] PCP - General 11/19/20 documented as of this encounter
--- OUTSIDE RECORDS SUMMARY | 2025-07-13 13:22 | XMS_ITS | Clinical Summary ---
Author Organization [facility] Address [address] [address] Phone Care Team Providers Care Spanisher Name Role Phone Hazel Kilgore MD Primary [...] Encounters Date Type Department Care Team Description 07/10/2025 Orders Only [facility] [address] [place] [address] Amaya Edgar STEPHANIE Stage 3b chronic kidney disease (HCC); Benign hypertensive renal disease 05/22/2025 2:30 PM EDT Office Visit [facility] [address] [phone] Amaya Edgar ARNP Stage 3b chronic kidney [...] Visit [facility] [address] [place] [phone] Tee Shay MD 8[address] [facility] 204 [place] [address] Health Maintenance Due Date Last Done Comments Pneumococcal Vaccine: 50+ Years (2 of 2 - PCV) 05/04/2015 05/04/2014 Diabetes: Ophthalmology Exam 12/10/2020 Diabetes: Pedal Pulse Checked 12/10/2020 Diabetes: Sensory Foot Exam 12/10/2020 Diabetes: Visual Foot Exam 12/10/2020 Diabetes: Hemoglobin A1C 04/12/2025 025, 11/21/2024, 02/26/2024, Additional history exists Influenza Vaccine (#1) 2025 5, 09/19/2021, 01/19/2020, Additional history exists Pneumococcal Vaccine: Peds (0 to 5 Years) and At-Risk Patients (6 to 49 Years) Discontinued 05/04/2014 Hepatitis B Vaccine Aged Out 09/22/2014, 10/19/2009, 09/17/2009 No longer eligible based on patient's age to complete this topic Insurance [facility] ([id number]) [facility] ([id number]) [place] [phone] Care Teams Spanisher Relationship Specialty Start Date End Date Haezl Kilgore MD 230 [place] [address] PCP - General 11/19/20
== END 2025-07-13 12:09 | disposition home or self-care (01) ==
LOC: HO.HSM 11:41
PROVIDERS: PCP Family Medicine; Visit Provider Registered Nurse
DX: M54.16 Radiculopathy, lumbar region (principal); G56.03 Carpal tunnel syndrome, bilateral upper limbs; R25.1 Tremor, unspecified; G62.9 Polyneuropathy, unspecified; F41.9 Anxiety disorder, unspecified
CPT/HCPCS: 99214

== ENCOUNTER → 2025-07-13 11:41 | Outpatient (BNVA) | payer OTHER, SELFPAY | PROVIDERS: PCP Family Medicine; Visit Provider Registered Nurse | DX: M54.16 Radiculopathy, lumbar region (principal); R25.1 Tremor, unspecified; G62.9 Polyneuropathy, unspecified; F41.9 Anxiety disorder, unspecified | CPT/HCPCS: 99212 ==